=== PATIENT | male | born 1950 | race Caucasian/White ===

== ENCOUNTER → 2016-11-09 | Outpatient (CLI) | payer BC ==
[~2016-11-09] MED LIST: ASPI81TA28 PO; ATOR-26 PO; BACL10TA PO; BIOT1TAB5 PO; CHOL1CAP57 PO; COEN100C11 PO; GARL400T4 PO; LISI5TAB PO; NTRSLP4 SL; OMEG10002 PO; PLV75 PO; THM100 PO; VITA400C15 PO
[2016-11-09 13:54] LABS: ALT/SGPT 38 U/L (12-78); AST/SGOT 23 U/L (15-37); BLOOD UREA NITROGEN 15 mg/dl (7-18); BUN/CREATININE RATIO 12.2 (10-20); CALCIUM 9.3 mg/dl (8.5-10.1); CARBON DIOXIDE 30 mmol/L (21-32); CHLORIDE 108 mmol/L (98-107); GLUCOSE 87 mg/dl (70-99); SODIUM 144 mmol/L (136-145)
[2016-11-09 13:57] LABS: ALB/GLOB RATIO 1.4 (0.9-2); ALKALINE PHOSPHATASE 62 U/L (45-117); CHOLESTEROL 123 mg/dl (0-200); CHOLESTEROL/HDL RATIO 2.7; HDL CHOLESTEROL 45 mg/dl; LDL CHOLESTEROL CALCULATED 56 mg/dl; TRIGLYCERIDES 112 mg/dl (0-150); VERY LOW DENSITY LIPOPROT CALC 22 mg/dl
== END | disposition home or self-care (01) ==
LOC: C.LAB1850 11:41
PROVIDERS: ATTEND Internal Medicine Cardiovascular Disease
DX: E78.5 Hyperlipidemia, unspecified (principal); I25.10 Atherosclerotic heart disease of native coronary artery without angina pectoris

== ENCOUNTER 2017-04-05 12:11 | Inpatient (IN) | payer BC, OTHER ==
[2017-04-05] VITALS (30 sets, daily range): BP systolic 115–139; BP diastolic 74–91; PULSE 69–91; TEMP 36.6–36.8; O2SAT 93–98; Ht 170.2 cm; Wt 98.7 kg
[~2017-04-05] VITALS: Ht 170.2 cm; Wt 98.7 kg
[2017-04-05] MEDS ORDERED: SODIUM CHLORIDE 0.9% 1000ML 1,000 ML IV STA (12:18)
[2017-04-05] MEDS ORDERED: ASPIRIN 81 MG CHEW PO STA (12:18)
[2017-04-05] MEDS ORDERED: MIDAZOLAM HCL 1 MG/ML 2ML VIAL ONE ×2 (12:20→14:02)
[2017-04-05] MEDS ORDERED: ONDANSETRON INJ 2 MG/ML 2 ML VIAL IV STA (12:20)
[2017-04-05] MEDS ORDERED: FENTANYL CITRATE INJ 50 MCG/1 ML 2 ML VIAL ONE (12:21)
[2017-04-05] MEDS ORDERED: NiCARDipine HCL INJ 2.5 MG/ML 10 ML AMP ONE (12:21)
[2017-04-05] MEDS ORDERED: HEPARIN SOD (PORCINE) 1000 UNIT/ML 10 ML VIAL ONE (12:21)
[2017-04-05] MEDS ORDERED: NITROGLYCERIN/D5W 100MCG/ML 20ML SYR ONE (12:23)
[2017-04-05] MEDS: NITROGLYCERIN 0.4 MG SL PER TAB CHARGE SL PRN ×2 (12:24→12:29)
[2017-04-05] MEDS ORDERED: METOCLOPRAMIDE HCL INJ 5 MG/ML 2 ML VIAL ONE (12:30)
[2017-04-05] MEDS ORDERED: METOCLOPRAMIDE HCL INJ 5 MG/ML 2 ML VIAL IV STA (12:30)
[2017-04-05 12:36] LABS: HEMATOCRIT 47.2 % (42-52); MEAN CELL VOLUME 96.1 fL (80-100); RED BLOOD COUNT 4.91 M/uL (4.7-6.1); WHITE BLOOD COUNT 10.27 K/uL (4.8-10.8)
[2017-04-05 12:37] LABS: BASO % 0.6 %; BASO ABS # 0.06 K/uL (0-0.2); COMPLETE YES; EOS % 4.3 %; IG% 0.2 %; LYMPH % 34.6 %; LYMPH ABS # 3.55 K/uL (1.2-3.4); MEAN CORPUSCULAR HGB CONC 35.4 g/dl (32-36); MEAN PLATELET VOLUME 11.3 fL (7.4-10.4); MONO % 9.4 %; NEUT % 50.9 %; PLATELET COUNT 275 K/uL (130-400)
[2017-04-05 12:46] LABS: PARTIAL THROMBOPLASTIN RATIO 0.8; PROTHROMBIN TIME (PATIENT) 10.8 SECONDS (9.0-12.0)
[2017-04-05 12:55] LABS: BUN/CREATININE RATIO 8.2 (10-20); CREATININE 1.52 mg/dl (0.60-1.40); MAGNESIUM 2.1 mg/dl (1.8-2.4); POTASSIUM 3.8 mmol/L (3.5-5.1)
[2017-04-05] MEDS ORDERED: EPTIFIBATIDE 0.75 MG/ML 75MG VIAL IV ONE (12:57)
[2017-04-05] MEDS ORDERED: EPTIFIBATIDE 2 MG/ML 10 ML VIAL IV ONE (12:57)
[2017-04-05 12:58] LABS: CKMB/CK RATIO 1.3 (0-3.0)
[2017-04-05] MEDS ORDERED: AMIODARONE / D5W 200 ML IV SCH (13:00)
[2017-04-05] MEDS ORDERED: AMIODARONE 360MG / 200ML D5W ONE (13:00)
[2017-04-05] MEDS ORDERED: AMIODARONE HCL INJ 50 MG/ML 3 ML VIAL ONE (13:01)
[2017-04-05] MEDS ORDERED: AMIODARONE 150MG / 100ML D5W ONE (13:03)
--- NOTE | 2017-04-05 13:05 | EMERGENCY ROOM VISIT NOTE ---
History Report prepared by Cuco: Tanya Apodaca Under the Supervision of: Dr. Rodney Espinoza M.D. First contact with patient: 12:17 Chief Complaint: CHEST PAIN Stated Complaint: CHEST PAIN History of Present Illness The patient is a 66 year old male who presents to the Emergency Room with complaints of an episode of chest pain beginning about 20 minutes ago. The patient was in the shower when his chest pain began. He rates his pain as a 10/ 10. The patient has a history of a heart attack and a stroke. He also had 4 stents put in last year. He reports feeling "fine" since having his stents put in last year. The patient is on Plavix and states he has "probably missed some doses". The patient did not take his morning medications. He denies taking any nitroglycerin or Aspirin prior to arrival. Source of History: patient Onset: 20 minutes ago Position: chest Symptom Intensity: 10/10 Timing: other (episode) Associated Symptoms: + chest pain Review of Systems See HPI for pertinent positives & negatives. A total of 10 systems reviewed and were otherwise negative. Past Medical & Surgical Medical Problems: (1) Hyperlipidemia (2) Hypertension (3) Memory loss (4) Nasal septal deviation (5) Obstructive sleep apnea (6) STEMI (ST elevation myocardial infarction) (7) STEMI (ST elevation myocardial infarction) (8) Transient ischemic attack (TIA) Surgical Problems: (1) H/O hernia repair Family History Patient reports no known family medical history. Social History Smoking Status: Former Smoker Alcohol Use: occasionally Drug Use: none Marital Status: Housing Status: lives with significant other Occupation Status: retired Current/Historical Medications Scheduled Aspirin (Aspirin Ec), 81 MG PO DAILY Atorvastatin (Lipitor), 80 MG PO DAILY Baclofen (Lioresal), 10 MG PO BID Biotin (Biotin), 1,000 MCG PO QAM Cholecalciferol (Vitamin D3), 1,000 INTER.UNIT PO QAM Clopidogrel Bisulfate (Clopidogrel), 75 MG PO QAM Coenzyme Q10 (Ubidecarenone) (Coq-10), 100 MG PO QAM Garlic-Calcium (Garlic), 1 TAB PO DAILY Lisinopril (Prinivil), 1 TAB PO DAILY [place]-3 Fatty Acids (Fish Oil), 1 CAP PO QAM Thiamine HCl (Vitamin B-1), 200 MG PO BID Tocopheryl Acet,Dl-Alpha (Vitamin E), 400 INTER.UNIT PO DAILY Scheduled PRN Nitroglycerin (Nitrostat), 0.4 MG SL DIRECTED PRN for Chest Pain Allergies Coded Allergies: No Known Allergies (Verified , 04/02/15) Physical Exam Vital Signs Date Time Temp Pulse Resp B/P (MAP) Pulse Ox O2 Delivery O2 Flow Rate FiO2 04/05/17 14:45 36.6 69 121/81 Nasal Cannula 2.0 04/05/17 14:45 36.6 69 20 121/81 (94) 96 Nasal Cannula 2.0 04/05/17 14:32 92 16 145/98 (114) 97 Room Air 04/05/17 14:22 90 16 135/97 (110) 97 Room Air 04/05/17 12:23 97 Room Air 04/05/17 12:23 36.8 86 26 165/125 97 Room Air 04/05/17 12:20 86 04/05/17 12:20 2 Nasal Cannula 04/05/17 12:14 97 Room Air Physical Exam GENERAL: Patient is a ill-appearing male, vomiting on examination. HEAD: Normocephalic atraumatic EYES: Ocular movements intact pupils equal and react to light OROPHARYNX mucous membranes are moist no exudates present no erythema or edema present NECK: Supple no nuchal rigidity CHEST: Good equal expansion LUNGS: Clear and equal to auscultation CARDIAC: Normal S1 and S2 ABDOMEN: Soft nontender no guarding BACK: No CVA tenderness EXTREMITIES: No pain upon palpation normal muscle strength in all groups no clubbing cyanosis or edema NEURO: Patient is following commands and answering questions appropriately. Alert and oriented x3 Cranial Nerves 2-12 grossly intact Medical Decision & Procedures Laboratory Results 04/05/17 12:20 Red Blood Count 4.91, Mean Corpuscular Volume 96.1, Mean Corpuscular Hemoglobin 34.0, Mean Corpuscular Hemoglobin Concent 35.4, Mean Platelet Volume 11.3, Neutrophils (%) (Auto) 50.9, Lymphocytes (%) (Auto) 34.6, Monocytes (%) (Auto) 9.4, Eosinophils (%) (Auto) 4.3, Basophils (%) (Auto) 0.6, Neutrophils # (Auto) 5.23, Lymphocytes # (Auto) 3.55, Monocytes # (Auto) 0.97, Eosinophils # (Auto) 0.44, Basophils # (Auto) 0.06 04/05/17 12:20 Test 04/05/17 12:20 04/05/17 12:30 04/05/17 13:02 White Blood Count 10.27 K/uL (4.8-10.8) Red Blood Count 4.91 M/uL (4.7-6.1) Hemoglobin 16.7 g/dL (14.0-18.0) Hematocrit 47.2 % (42-52) Mean Corpuscular Volume 96.1 fL (80-100) Mean Corpuscular Hemoglobin 34.0 pg (25-34) Mean Corpuscular Hemoglobin Concent 35.4 g/dl (32-36) Platelet Count 275 K/uL (130-400) Mean Platelet Volume 11.3 fL (7.4-10.4) Neutrophils (%) (Auto) 50.9 % Lymphocytes (%) (Auto) 34.6 % Monocytes (%) (Auto) 9.4 % Eosinophils (%) (Auto) 4.3 % Basophils (%) (Auto) 0.6 % Neutrophils # (Auto) 5.23 K/uL (1.4-6.5) Lymphocytes # (Auto) 3.55 K/uL (1.2-3.4) Monocytes # (Auto) 0.97 K/uL (0.11-0.59) Eosinophils # (Auto) 0.44 K/uL (0-0.5) Basophils # (Auto) 0.06 K/uL (0-0.2) RDW Standard Deviation 43.9 fL (36.4-46.3) RDW Coefficient of Variation 12.8 % (11.5-14.5) Immature Granulocyte % (Auto) 0.2 % Immature Granulocyte # (Auto) 0.02 K/uL (0.00-0.02) Prothrombin Time 10.8 SECONDS (9.0-12.0) Prothromb Time International Ratio 1.0 (0.9-1.1) Activated Partial Thromboplast Time 20.4 SECONDS (21.0-31.0) Partial Thromboplastin Ratio 0.8 Anion Gap 11.0 mmol/L (3-11) Est Creatinine Clear Calc Drug Dose 53.5 ml/min Estimated GFR () 54.2 Estimated GFR (Non- 46.7 BUN/Creatinine Ratio 8.2 (10-20) Calcium Level 9.0 mg/dl (8.5-10.1) Magnesium Level 2.1 mg/dl (1.8-2.4) Total Bilirubin 1.0 mg/dl (0.2-1) Direct Bilirubin 0.2 mg/dl (0-0.2) Aspartate Amino Transf (AST/SGOT) 29 U/L (15-37) Alanine Aminotransferase (ALT/SGPT) 41 U/L (12-78) Alkaline Phosphatase 69 U/L (45-117) Total Creatine Kinase 253 U/L (39-308) Creatine Kinase MB 3.4 ng/ml (0.5-3.6) Creatine Kinase MB Ratio 1.3 (0-3.0) Total Protein 7.9 gm/dl (6.4-8.2) Albumin 4.4 gm/dl (3.4-5.0) Lipase 134 U/L (73-393) Bedside Troponin I < 0.030 ng/ml (0-0.045) Kaolin Activated Coagulation Time 241 SECONDS (94-140) Date/Time Source Procedure Growth Status 04/05/17 14:45 Nasal MRSA DNA Surveillance Screen - Final Specimen Negative for MRSA by DNA Probe Complete Labs reviewed by ED physician. Medications Administered Medications (Trade) Dose Ordered Sig/Krystina Route Start Time Stop Time Status Last Admin Dose Admin Sodium Chloride 1,000 ml @ 999 mls/hr Q1H1M STAT IV 04/05/17 12:18 04/05/17 13:18 DC 04/05/17 12:18 999 MLS/HR Aspirin (Aspirin Chew) 324 mg NOW STAT PO 04/05/17 12:18 04/05/17 12:21 DC 04/05/17 12:18 324 MG Nitroglycerin (Nitrostat Tab) 0.4 mg Q5M PRN SL 04/05/17 12:30 04/05/17 15:26 DC 04/05/17 12:29 0.4 MG Ondansetron HCl (Zofran Inj) 4 mg NOW STAT IV 04/05/17 12:20 04/05/17 12:21 DC 04/05/17 12:20 4 MG Midazolam HCl (Versed Inj) 2 mg STK-MED ONCE .ROUTE 04/05/17 12:20 04/05/17 12:21 DC 04/05/17 12:20 2 MG Fentanyl Citrate (Fentanyl Inj) 100 mcg STK-MED ONCE .ROUTE 04/05/17 12:21 04/05/17 12:22 DC 04/05/17 12:21 100 MCG Heparin Sodium (Porcine) (Heparin Iv Bolus) 10,000 unit STK-MED ONCE .ROUTE 04/05/17 12:21 04/05/17 12:22 DC 04/05/17 12:21 10,000 UNIT Nicardipine HCl (Cardene Iv) 25 mg STK-MED ONCE .ROUTE 04/05/17 12:21 04/05/17 12:22 DC 04/05/17 12:21 25 MG Heparin Sodium/ Sodium Chloride (Heparin Sod/Ns 2 Units/Ml) 3,000 unit STK-MED ONCE .ROUTE 04/05/17 12:21 04/05/17 12:22 DC 04/05/17 12:21 3,000 UNIT Nitroglycerin/ Dextrose (Nitroglycerin/ D5w 100 Mcg/Ml 20ML SYRINGE) 2,000 mcg STK-MED ONCE .ROUTE 04/05/17 12:23 04/05/17 12:24 DC 04/05/17 12:23 2,000 MCG Metoclopramide HCl (Reglan Inj) 10 mg NOW STAT IV 04/05/17 12:30 04/05/17 12:31 DC 04/05/17 12:30 10 MG Eptifibatide (Integrilin Inj) 40 mg STK-MED ONCE IV 04/05/17 12:57 04/05/17 12:58 DC 04/05/17 12:57 40 MG Eptifibatide (Integrilin Inj) 75 mg STK-MED ONCE IV 04/05/17 12:57 04/05/17 12:58 DC 04/05/17 12:57 75 MG Amiodarone HCL/ Dextrose (Nexterone / D5w) 360 mg STK-MED ONCE .ROUTE 04/05/17 13:00 04/05/17 13:02 DC 04/05/17 13:00 360 MG Amiodarone HCL/ Dextrose (Nexterone / D5w) 150 mg STK-MED ONCE .ROUTE 04/05/17 13:03 04/05/17 13:04 DC 04/05/17 13:03 150 MG Midazolam HCl (Versed Inj) 2 mg STK-MED ONCE .ROUTE 04/05/17 14:02 04/05/17 14:03 DC 04/05/17 14:02 1 MG Ticagrelor (Brilinta Tab) 180 mg STK-MED ONCE PO 04/05/17 14:21 04/05/17 14:22 DC 04/05/17 14:21 180 MG Nitroglycerin (Nitrostat Tab) 0.4 mg UD PRN SL 04/05/17 14:45 05/05/17 14:44 04/05/17 18:57 0.4 MG Amiodarone HCL/ Dextrose 200 ml @ 33.3 mls/hr Q6H1M IV 04/05/17 13:00 04/05/17 19:00 DC 04/05/17 13:00 33.3 MLS/HR ECG Indication: chest pain Rate (beats per minute): 83 Rhythm: normal sinus Findings: PVC, ST elevation (Anterior and lateral), other (reciprocal depression in inferior leads) ED Course 1219: Past medical records reviewed. The patient was evaluated in room C12B. A complete history and physical examination was performed. 1218: Ordered Aspirin 324 mg PO, Sodium Chloride 1000 ml @ 999 mls/hr. 1220: Ordered Midazolam HCl 2 mg .ROUTE, Zofran Inj 4 mg IV. 1230: I discussed the patient's case with Dr. Maxwell-Photographic Process Screen Maker, he came and evaluated the patient. 1236: The patient was taken to laboratory apparatus glass blower. Medical Decision Differential diagnosis: Etiologies such as cardiac ischemia, aortic dissection, pulmonary embolism, pneumonia, pneumothorax, musculoskeletal, infections, pericarditis, myocarditis , esophageal rupture, gastrointestinal, as well as others were entertained. This is a 66-year-old male who presents emergency department complaining of chest pain. The patient has a STEMI on his EKG. For this reason the patient was given aspirin as well as nitroglycerin and a heart alert was immediately initiated. As the patient continued to vomit in the emergency department he was given Zofran and Reglan and taken to the Hvac Specialist. Medication Reconcilliation Current Medication List: was personally reviewed by me Blood Pressure Screening Patient's blood pressure: Elevated blood pressure Blood pressure disposition: Referred to PCP (evaluated further by laboratory apparatus glass blower) Consults Time Called: 1230 Consulting Physician: Dr. Maxwell-Photographic Process Screen Maker Returned Call: 1230 I discussed the patient's case with. Dr. Maxwell-Photographic Process Screen Maker, he came and evaluated the patient Impression Primary Impression: STEMI (ST elevation myocardial infarction) Critical Care I have personally spent greater than 30 minutes of critical care time in the direct management of this patient. This includes bedside care, interpretation of diagnostic studies, and testing, discussion with consultants, patient, and family members, and other required patient management activities. This 30 minutes is in excess of all separately billable procedures. Scribe Attestation The scribe's documentation has been prepared under my direction and personally reviewed by me in its entirety. I confirm that the note above accurately reflects all work, treatment, procedures, and medical decision making performed by me. Departure Information Dispostion Other (taken to minilab operator) Referrals Mukul Dacosta M.D. (PCP) Patient Instructions My [facility] Problem Qualifiers Primary Impression: STEMI (ST elevation myocardial infarction) Involved coronary artery: unspecified coronary artery Qualified Codes: I21.3 - ST elevation (STEMI) myocardial infarction of unspecified site
[2017-04-05] MEDS ORDERED: TICAGRELOR 90 MG TAB PO ONE (14:21)
[2017-04-05] MEDS ORDERED: NITROGLYCERIN 0.4 MG SL PER TAB CHARGE SL PRN (14:45)
[2017-04-05] MEDS ORDERED: ACETAMINOPHEN 325 MG TAB PO PRN (14:45)
[2017-04-05] MEDS ORDERED: BACLOFEN 10 MG TAB PO PRN (14:45)
[2017-04-05] MEDS ORDERED: EPTIFIBATIDE BOLUS / DRIP IV ONE (14:45)
--- NOTE | 2017-04-05 14:47 | Procedure Note ---
Pre-Mod Sedation Assessment General Date of Moderate Sedation: Apr 05, 2017. Vital Signs: Vital Signs Past 12 Hours Date Time Temp Pulse Resp B/P (MAP) Pulse Ox O2 Delivery O2 Flow Rate FiO2 04/05/17 14:32 92 16 145/98 (114) 97 Room Air 04/05/17 14:22 90 16 135/97 (110) 97 Room Air 04/05/17 12:23 97 Room Air 04/05/17 12:23 36.8 86 26 165/125 97 Room Air 04/05/17 12:20 86 04/05/17 12:20 2 Nasal Cannula 04/05/17 12:14 97 Room Air Review Cardiovascular: regular rate, rhythm, no edema Abdomen: normal bowel sounds, non tender Lungs: chest non-tender, lungs clear Pre-Sedation Airway Assessment Oral Cavity: WNL Able to Visualize Vocal Cords: No Short Thick Neck: No Hx of Sleep Apnea: No Smoking Status: Former Smoker Mallampati Classification: Class III ASA Classification: Class IV Procedure Planning Contraindications-for Mod Sed: None Yes Notes The planned sedation has been discussed with the patient and consent obtained. I have identified the patient, determined the appropriateness of sedation and have assessed the patient immediately prior to the procedure. All medicine(s) and interventions are by my order.
--- NOTE | 2017-04-05 14:48 | Procedure Note ---
Post-Mod Sedation Assessment General Date of Moderate Sedation Apr 05, 2017. Vital Signs: Vital Signs Past 12 Hours Date Time Temp Pulse Resp B/P (MAP) Pulse Ox O2 Delivery O2 Flow Rate FiO2 04/05/17 14:32 92 16 145/98 (114) 97 Room Air 04/05/17 14:22 90 16 135/97 (110) 97 Room Air 04/05/17 12:23 97 Room Air 04/05/17 12:23 36.8 86 26 165/125 97 Room Air 04/05/17 12:20 86 04/05/17 12:20 2 Nasal Cannula 04/05/17 12:14 97 Room Air Review - Discharge Criteria Vital Signs Stable: Yes Alert/Oriented/Conversant: Yes Returned to Baseline Mental St: Yes Nausea Absent/Minimal: Yes Pain/Discomfort/Absent/Minimal: Yes Normal/Baseline Respirations: Yes Active Bleeding?: Yes Pt Received D/C Instructions: No Prescriptions Given: None Specific Proced. D/C Criteria Distal Pulses Present (Cardiac: Yes Groin site assessed-Card Cath: N/A Voided Prior To Discharge: N/A Discharged Patients Adult Escort/Transportation: Yes
--- NOTE | 2017-04-05 15:04 | Cardiac Catheterization ---
Procedure Note Procedure Date Apr 05, 2017. Pre-Procedure Diagnosis STEMI AUC Score 9 Post-Procedure Diagnosis Severe CAD Procedure(s) Performed Coronary Angiography, Left Heart Cath, Drug Eluting Stent Adhesive Bonding Machine Operator ash Material Control Analyst(s) Glunt Estimated Blood Loss 20 Medication(s) Fentanyl, Heparin, Integrilin, Nicardipine, Nitroglycerin, Versed, Lidocaine 1% ticagrelor Summary of Findings Indication: STEMI/Heart Alert Access: 6Fr right Catheters: EBU 3.75; JR 4 diagnostic catheter Findings: Acutely occluded LAD - very late stent thrombosis -- PCI -- Antithrombotic therapy: Heparin, integrilin, ticagrelor Procedure: LM cannulated with EBU 3.75 guide BMW wire passed across lesion into distal vessel Intrastent/post stent lesions predilated with 2.5 compliant balloon Prior stents post-dilated with 3.0 balloon IVUS confirmed well-apposed stents. No proximal disease. Mid segment plaque and thrombus. Dilated lesion distal to prior stents - stented with 2.5 x 30 Pedro CHULA Stent post-dilated with 3.0 noncompliant balloon IC vasodilators administered for spasm Noted to have distal/apical LAD occlusion with apparent thrombus. Apical LAD ballooned gently with 1.5 and 2.0 balloon with re-established flow Post procedure MARIO 3 flow, stent well expanded with minimal residual stenosis and no apparent cardiac complications. Arterial Closure: TR Band Summary: 1. Anterior STEMI/Occluded proximal LAD/Very late stent thrombosis 2. Successful PCI of LAD stent thrombosis with 2.5 x 30 Pedro CHULA placed to mid LAD overlapping distal aspect of prior stents. (All stents post-dilated with 3.0 NC balloon) - POBA of distal/apical LAD with 2.0 balloon. Recommendations: Admit to ICU for continued monitoring Loaded with Ticagrelor 180mg in supervisor cytogenetic laboratory Continue integrilin for 8 hrs Continue dual-antiplatelet therapy indefinitely Trend troponins until peak, Check Echo Uptitrate beta-leisa/DONYA as BP allows High-dose statin Consult cardiac Rehab Hemodynamics Rest Ao: 118/76/98 Final Ao: 114/74/93 LV: 120/35 Recommendations PCI without planned CABG Specimens None Radiation Exposure (mGy) 6279 Contrast (mls) 215 Visi Fluids (cc crystalloids) 330 ml Drains none Anesthesia moderate Procedural Complication(s) None Disposition ICU ACC Data Cardiac Status Clinical evaluation leading to the procedure CAD Presntation: STEMI Anginal Classification: CCS III Heart Failure: No, NYHA Class: CCS I Cardiogenic Shock w/in 24Hrs: No Cardiac Arrest w/in 24Hrs: No Imaging studies past 6 months: No Closure Device Percutaneous Entry Location: Radial Closure Device: Radial Band Recommendations: PCI without planned CABG PCI Indication: Immediate PCI for STEMI Lesion Segment Name: proximal LAD Culprit Artery: Yes Stenosis Prior to Rx (%): 100 Chronic Total Occlusion: No IVUS: Yes FFR: No Pre-Procedure MARIO Flow: 0 Previously Treated Lesion: Yes Treated Lesion: Timeframe: 1-2 years Treated with Stent: Yes In-Stent Thrombosis: Yes Stent Type: CHULA Lesion Complexity: High/C Lesion Length (mm): 30 Thrombus Present: Yes Bifurcation Lesion: No Guidewire Across Lesion: Yes Guidewire: Stenosis Post-Procedure (%): 0 Post-Procedure MARIO Flow: 3 Device(s) Deployed: Yes Intraprocedure Events Significant Dissection: No Perforation: No
[2017-04-05] MEDS: EPTIFIBATIDE INJ 75 MG PREMIXED IV SCH ×2 (15:33→18:02)
[2017-04-05] MEDS ORDERED: AMIODARONE IV BOLUS / DRIP IV STA (16:52)
[2017-04-05] MEDS: AMIODARONE / D5W 200 ML IV SCH ×2 (18:56→22:59)
--- NOTE | 2017-04-05 19:09 | Critical Care Consultation ---
Critical Care Consultation Date of Consultation: Apr 05, 2017. Attending Physician: Omari Young D.O. Reason for Consultation: post PCI. History of Present Illness 66 yo male with a hx of CVA with minimal deficit in the past, CLARENCE, CAD s/p stenting to the LAD, HTN, mild dementia and HLP. presented to the hospital with severe 10/10 chest pain, not responding to the NTG. the pt had St elevation on the EKG, went to the oil field laborer and underwent CHULA placement in the LAD with balloon dilation , improved chest pain, V tach was reported and started on Amiodarone drip. brought to the ICU on Integrilin and Amiodarone drip. one episode of chest pain , feels like bronchitis according to the pt. 2, no EKG changes and no ST elevation. recent trop was normal. responded to NTG SL. Family History Patient reports no known family medical history. Social History Smoking Status: Former Smoker Smokeless Tobacco Use: No Alcohol Use: none Drug Use: none Marital Status: Housing Status: lives with significant other Occupation Status: retired Allergies Coded Allergies: No Known Allergies (Verified , 04/02/15) Home Medications Scheduled Aspirin (Aspirin Ec), 81 MG PO DAILY Atorvastatin (Lipitor), 80 MG PO DAILY Baclofen (Lioresal), 10 MG PO BID Biotin (Biotin), 1,000 MCG PO QAM Cholecalciferol (Vitamin D3), 1,000 INTER.UNIT PO QAM Clopidogrel Bisulfate (Clopidogrel), 75 MG PO QAM Coenzyme Q10 (Ubidecarenone) (Coq-10), 100 MG PO QAM Garlic-Calcium (Garlic), 1 TAB PO DAILY Lisinopril (Prinivil), 1 TAB PO DAILY [place]-3 Fatty Acids (Fish Oil), 1 CAP PO QAM Thiamine HCl (Vitamin B-1), 200 MG PO BID Tocopheryl Acet,Dl-Alpha (Vitamin E), 400 INTER.UNIT PO DAILY Scheduled PRN Nitroglycerin (Nitrostat), 0.4 MG SL DIRECTED PRN for Chest Pain Current Inpatient Medications Current Inpatient Medications Medications (Trade) Dose Ordered Sig/Krystina Route Start Time Stop Time Status Last Admin Dose Admin Nitroglycerin (Nitrostat Tab) 0.4 mg UD PRN SL 04/05/17 14:45 05/05/17 14:44 04/05/17 18:57 0.4 MG Aspirin (Ecotrin Tab) 81 mg QAM PO 04/06/17 09:00 05/06/17 08:59 Atorvastatin Calcium (Lipitor Tab) 80 mg QAM PO 04/06/17 09:00 05/06/17 08:59 Metoprolol Tartrate (Lopressor Tab) 25 mg Q12 PO 04/05/17 21:00 05/05/17 20:59 Acetaminophen (Tylenol Tab) 650 mg Q4H PRN PO 04/05/17 14:45 05/05/17 14:44 Baclofen (Lioresal Tab) 10 mg BID PRN PO 04/05/17 14:45 05/05/17 14:44 Lisinopril (Zestril Tab) 5 mg DAILY PO 04/06/17 09:00 05/06/17 08:59 Thiamine HCl (Vitamin B-1 Tab) 200 mg BID PO 04/05/17 21:00 05/05/17 20:59 Ticagrelor (Brilinta Tab) 90 mg BID PO 04/05/17 21:00 05/05/17 20:59 Eptifibatide 100 ml @ 16 mls/hr Q6H15M IV 04/05/17 15:30 04/05/17 23:00 04/05/17 18:02 16 MLS/HR Miscellaneous (Stop Order) 1 ea TODAY@2300 ONCE N/A 04/05/17 23:00 04/05/17 23:01 Amiodarone HCL/ Dextrose 200 ml @ 16.7 mls/hr [id number] IV 04/05/17 19:00 05/05/17 18:59 04/05/17 18:56 16.7 MLS/HR Review of Systems Constitutional: No fever, No chills, No sweats, No weight loss, No weakness, No fatigue, No problem reported ENT: No hearing loss, No unusual epistaxis, No nasal symptoms, No sore throat, No tinnitus, No dental problems, No trouble swallowing, No problem reported Respiratory: + shortness of breath Cardiovascular: + chest pain Abdomen: No pain, No nausea, No vomiting, No diarrhea, No constipation, No GI bleeding, No problem reported Neurologic: No memory loss, No paralysis, No weakness, No numbness/tingling, No vertigo, No balance problems, No problem reported Integumentary: No rash, No itch, No new/changing skin lesions, No color change , No bleeding, No problem reported Allergic / Immunologic: No environmental allergies, No seasonal allergies, No pet sensitivities, No food allergies, No hives, No frequent infections, No poor healing, No prolonged convalescence, No problem reported Physical Exam Date Time Temp Pulse Resp B/P (MAP) Pulse Ox O2 Delivery O2 Flow Rate FiO2 04/05/17 17:45 74 14 133/79 (97) 97 Nasal Cannula 2.0 04/05/17 16:45 36.8 78 20 128/87 (101) 97 Nasal Cannula 2.0 04/05/17 16:15 36.6 76 20 134/85 (101) 98 Nasal Cannula 2.0 04/05/17 15:45 36.8 71 18 125/77 (93) 98 Nasal Cannula 2.0 04/05/17 15:30 36.7 74 18 134/81 (98) 96 Nasal Cannula 2.0 04/05/17 15:15 73 18 122/86 (98) 96 Nasal Cannula 2.0 04/05/17 15:00 36.6 70 18 126/81 (96) 96 Nasal Cannula 2.0 04/05/17 14:45 36.6 69 121/81 Nasal Cannula 2.0 04/05/17 14:45 36.6 69 20 121/81 (94) 96 Nasal Cannula 2.0 04/05/17 14:32 92 16 145/98 (114) 97 Room Air 04/05/17 14:22 90 16 135/97 (110) 97 Room Air 04/05/17 12:23 97 Room Air 04/05/17 12:23 36.8 86 26 165/125 97 Room Air 04/05/17 12:20 86 04/05/17 12:20 2 Nasal Cannula 04/05/17 12:14 97 Room Air General Appearance: well-appearing Eyes: PERRLA, no discharge ENT: normal mouth exam Neck: trachea midline, no stridor Respiratory: breath sounds normal, clear to auscultation Cardiovasular: regular rate/rhythm, normal S1S2, no M/G/R Abdomen: non tender, no masses Lower Extremities: no edema Neuro: alert, oriented x 3, normal motor exam, normal sensation Psychiatric: normal affect Laboratory Results Last 24 Hours Test 04/05/17 12:20 04/05/17 12:30 04/05/17 13:02 White Blood Count 10.27 K/uL Red Blood Count 4.91 M/uL Hemoglobin 16.7 g/dL Hematocrit 47.2 % Mean Corpuscular Volume 96.1 fL Mean Corpuscular Hemoglobin 34.0 pg Mean Corpuscular Hemoglobin Concent 35.4 g/dl Platelet Count 275 K/uL Mean Platelet Volume 11.3 fL Neutrophils (%) (Auto) 50.9 % Lymphocytes (%) (Auto) 34.6 % Monocytes (%) (Auto) 9.4 % Eosinophils (%) (Auto) 4.3 % Basophils (%) (Auto) 0.6 % Neutrophils # (Auto) 5.23 K/uL Lymphocytes # (Auto) 3.55 K/uL Monocytes # (Auto) 0.97 K/uL Eosinophils # (Auto) 0.44 K/uL Basophils # (Auto) 0.06 K/uL RDW Standard Deviation 43.9 fL RDW Coefficient of Variation 12.8 % Immature Granulocyte % (Auto) 0.2 % Immature Granulocyte # (Auto) 0.02 K/uL Prothrombin Time 10.8 SECONDS Prothromb Time International Ratio 1.0 Activated Partial Thromboplast Time 20.4 SECONDS Partial Thromboplastin Ratio 0.8 Sodium Level 141 mmol/L Potassium Level 3.8 mmol/L Chloride Level 105 mmol/L Carbon Dioxide Level 25 mmol/L Anion Gap 11.0 mmol/L Blood Urea Nitrogen 13 mg/dl Creatinine 1.52 mg/dl Est Creatinine Clear Calc Drug Dose 53.5 ml/min Estimated GFR () 54.2 Estimated GFR (Non- 46.7 BUN/Creatinine Ratio 8.2 Random Glucose 152 mg/dl Calcium Level 9.0 mg/dl Magnesium Level 2.1 mg/dl Total Bilirubin 1.0 mg/dl Direct Bilirubin 0.2 mg/dl Aspartate Amino Transf (AST/SGOT) 29 U/L Alanine Aminotransferase (ALT/SGPT) 41 U/L Alkaline Phosphatase 69 U/L Total Creatine Kinase 253 U/L Creatine Kinase MB 3.4 ng/ml Creatine Kinase MB Ratio 1.3 Total Protein 7.9 gm/dl Albumin 4.4 gm/dl Lipase 134 U/L Bedside Troponin I < 0.030 ng/ml Jeremie Activated Coagulation Time 241 SECONDS Diagnostic Results labs and imaging reviewed personally. cath report reviewed as well. Assessment & Plan 1- CAD, Cath today with CHULA to the LAD. 2- CLARENCE. 3- HTN and HLP. Plan: 1- appreciate Dr. Maxwell input. 2- ICU monitoring, 3- continue Integrilin, Amiodarone. 4- NTG SL given, pain 2/10. 5- MS if needed for pain, no EKG changes to suggest on going ischemia. 6- GI prophylaxis. discussed with the staff . CCT 35 min.
[2017-04-05] MEDS ORDERED: NURSING VERBAL MED ORDER STA (19:15)
[2017-04-05] MEDS ORDERED: MoRPHine SULFATE 2 MG/ML CARP ONE (19:19)
[2017-04-05] MEDS ORDERED: MoRPHine SULFATE 2 MG/ML CARP IV PRN (19:45)
[2017-04-05] MEDS: TICAGRELOR 90 MG TAB PO SCH (21:42)
[2017-04-05] MEDS: THIAMINE HCL 100 MG TAB PO SCH (21:43)
[2017-04-05] MEDS: METOPROLOL TARTRATE 25 MG TAB PO SCH (21:43)
--- NOTE | 2017-04-05 21:48 | History and Physical ---
History & Physical Date & Time of Service: Apr 05, 2017 at 21:35 Chief Complaint: STEMI Primary Care Physician: Mukul Dacosta M.D. History of Present Illness Source: patient, hospital records 66 yo male with a history of STEMI with CHULA to the circumflex as well as stenting to the LAD in 2016, presented with chest pain and ST elevations. Taken immediately to the petroleum refinery laborer by Dr. Maxwell and the LAD stents found to be completely occluded. Thrombectomy and one new CHULA placed in the LAD and more distally in the LAD the patient had further blockage that was treated with balloon angioplasty. Good blood flow after the procedure. Patient did have some runs of ventricular tachycardia, but otherwise he tolerated the procedure well. He was recovering in the ICU at the time we were called and he had no further chest pain, vitals stable. Discussed the case with Dr. Maxwell, plans to use Integrilin for 8 hours after procedure, then Brilinta while in the hospital. Some issues with patient being compliant with Plavix, possibly due to some memory issues related to a prior stroke. Past Medical/Surgical History Medical Problems: (1) Hyperlipidemia Status: Chronic (2) Hypertension Status: Chronic (3) Memory loss Status: Chronic (4) Nasal septal deviation Status: Chronic (5) Obstructive sleep apnea Status: Chronic (6) Transient ischemic attack (TIA) Status: Chronic Surgical Problems: (1) H/O hernia repair Status: Resolved Family History Patient reports no known family medical history. Diabetes Social History Smoking Status: Former Smoker Smokeless Tobacco Use: No Alcohol Use: none Drug Use: none Marital Status: Occupational Status: retired Immunizations History of Influenza Vaccine: No History of Tetanus Vaccine?: Unknown History of Pneumococcal: No History of Hepatitis B Vaccine: Unknown Multi-Drug Resistant Organisms History of MDRO: No Allergies Coded Allergies: No Known Allergies (Verified , 04/02/15) Home Medications Scheduled Aspirin (Aspirin Ec), 81 MG PO DAILY Atorvastatin (Lipitor), 80 MG PO DAILY Baclofen (Lioresal), 10 MG PO BID Biotin (Biotin), 1,000 MCG PO QAM Cholecalciferol (Vitamin D3), 1,000 INTER.UNIT PO QAM Clopidogrel Bisulfate (Clopidogrel), 75 MG PO QAM Coenzyme Q10 (Ubidecarenone) (Coq-10), 100 MG PO QAM Garlic-Calcium (Garlic), 1 TAB PO DAILY Lisinopril (Prinivil), 1 TAB PO DAILY Helen-3 Fatty Acids (Fish Oil), 1 CAP PO QAM Thiamine HCl (Vitamin B-1), 200 MG PO BID Tocopheryl Acet,Dl-Alpha (Vitamin E), 400 INTER.UNIT PO DAILY Scheduled PRN Nitroglycerin (Nitrostat), 0.4 MG SL DIRECTED PRN for Chest Pain Review of Systems Constitutional: No fever, No chills, No sweats, No weight loss, No weakness, No fatigue, No problem reported Eyes: No worsening of vision, No eye pain, No redness, No discharge, No diplopia, No problem reported ENT: No hearing loss, No unusual epistaxis, No nasal symptoms, No sore throat, No tinnitus, No dental problems, No trouble swallowing, No problem reported Respiratory: No cough, No sputum, No wheezing, No shortness of breath, No dyspnea on exertion, No dyspnea at rest, No hemoptysis, No problem reported Cardiovascular: + chest pain (on admission, none now), No orthopnea, No PND, No edema, No claudication, No palpitations, No problem reported Abdomen: No pain, No nausea, No vomiting, No diarrhea, No constipation, No GI bleeding, No problem reported Musculoskeletal: No joint pain, No muscle pain, No swelling, No calf pain, No problem reported Genitourinary - Male: No hematuria, No dysuria, No urinary frequency, No urinary urgency Neurologic: + memory loss, No paralysis, No weakness, No numbness/tingling, No vertigo, No balance problems, No problem reported Psychiatric: No depression symptoms, No anhedonism, No anxiety, No insomnia, No substance abuse, No problem reported Endocrine: No fatigue, No excessive thirst, No excessive urination, No problem reported Hematologic / Lymphatic: No abnormal bleeding/bruising, No clotting problems, No swollen lymph nodes, No night sweats, No problem reported Integumentary: No rash, No itch, No new/changing skin lesions, No color change , No bleeding, No problem reported Allergic / Immunologic: No environmental allergies, No seasonal allergies, No pet sensitivities, No food allergies, No hives, No frequent infections, No poor healing, No prolonged convalescence, No problem reported Physical Exam Vital Signs Date Time Temp Pulse Resp B/P (MAP) Pulse Ox O2 Delivery O2 Flow Rate FiO2 04/05/17 18:45 78 18 120/74 (89) 93 Nasal Cannula 2.0 04/05/17 17:45 74 14 133/79 (97) 97 Nasal Cannula 2.0 04/05/17 16:45 36.8 78 20 128/87 (101) 97 Nasal Cannula 2.0 04/05/17 16:15 36.6 76 20 134/85 (101) 98 Nasal Cannula 2.0 04/05/17 15:45 36.8 71 18 125/77 (93) 98 Nasal Cannula 2.0 04/05/17 15:30 36.7 74 18 134/81 (98) 96 Nasal Cannula 2.0 04/05/17 15:15 73 18 122/86 (98) 96 Nasal Cannula 2.0 04/05/17 15:00 36.6 70 18 126/81 (96) 96 Nasal Cannula 2.0 04/05/17 14:45 36.6 69 121/81 Nasal Cannula 2.0 04/05/17 14:45 36.6 69 20 121/81 (94) 96 Nasal Cannula 2.0 04/05/17 14:32 92 16 145/98 (114) 97 Room Air 04/05/17 14:22 90 16 135/97 (110) 97 Room Air 04/05/17 12:23 97 Room Air 04/05/17 12:23 36.8 86 26 165/125 97 Room Air 04/05/17 12:20 86 04/05/17 12:20 2 Nasal Cannula 04/05/17 12:14 97 Room Air General Appearance: WD/WN, no apparent distress Head: normocephalic, atraumatic Eyes: normal inspection, EOMI, sclerae normal ENT: normal ENT inspection, hearing grossly normal, pharynx normal Neck: supple, no adenopathy, no JVD, trachea midline Respiratory/Chest: chest non-tender, lungs clear, normal breath sounds, no respiratory distress, no accessory muscle use Cardiovascular: regular rate, rhythm, no edema, no gallop, no JVD, no murmur, normal peripheral pulses Abdomen/GI: normal bowel sounds, non tender, soft, no organomegaly Back: normal inspection, no CVA tenderness, no muscle spasm, normal range of motion Extremities/Musculoskelatal: normal inspection, no calf tenderness, normal capillary refill, no pedal edema, normal range of motion Neurologic/Psych: customer strategy manager II-XII nml as tested, no motor/sensory deficits, alert, normal mood/affect, normal reflexes, oriented x 3 Skin: normal color, warm/dry, no rash Lymphatic: no adenopathy Diagnostics Laboratory Results Results Past 24 Hours Test 04/05/17 12:20 04/05/17 12:30 04/05/17 13:02 04/05/17 16:27 Range/Units White Blood Count 10.27 4.8-10.8 K/uL Red Blood Count 4.91 4.7-6.1 M/uL Hemoglobin 16.7 14.0-18.0 g/dL Hematocrit 47.2 42-52 % Mean Corpuscular Volume 96.1 80-100 fL Mean Corpuscular Hemoglobin 34.0 25-34 pg Mean Corpuscular Hemoglobin Concent 35.4 32-36 g/dl Platelet Count 275 130-400 K/uL Mean Platelet Volume 11.3 7.4-10.4 fL Neutrophils (%) (Auto) 50.9 % Lymphocytes (%) (Auto) 34.6 % Monocytes (%) (Auto) 9.4 % Eosinophils (%) (Auto) 4.3 % Basophils (%) (Auto) 0.6 % Neutrophils # (Auto) 5.23 1.4-6.5 K/uL Lymphocytes # (Auto) 3.55 1.2-3.4 K/uL Monocytes # (Auto) 0.97 0.11-0.59 K/uL Eosinophils # (Auto) 0.44 0-0.5 K/uL Basophils # (Auto) 0.06 0-0.2 K/uL RDW Standard Deviation 43.9 36.4-46.3 fL RDW Coefficient of Variation 12.8 11.5-14.5 % Immature Granulocyte % (Auto) 0.2 % Immature Granulocyte # (Auto) 0.02 0.00-0.02 K/uL Prothrombin Time 10.8 9.0-12.0 SECONDS Prothromb Time International Ratio 1.0 0.9-1.1 Activated Partial Thromboplast Time 20.4 21.0-31.0 SECONDS Partial Thromboplastin Ratio 0.8 Sodium Level 141 136-145 mmol/L Potassium Level 3.8 3.5-5.1 mmol/L Chloride Level 105 98-107 mmol/L Carbon Dioxide Level 25 21-32 mmol/L Anion Gap 11.0 3-11 mmol/L Blood Urea Nitrogen 13 7-18 mg/dl Creatinine 1.52 0.60-1.40 mg/dl Est Creatinine Clear Calc Drug Dose 53.5 ml/min Estimated GFR () 54.2 Estimated GFR (Non- 46.7 BUN/Creatinine Ratio 8.2 10-20 Random Glucose 152 70-99 mg/dl Calcium Level 9.0 8.5-10.1 mg/dl Magnesium Level 2.1 1.8-2.4 mg/dl Total Bilirubin 1.0 0.2-1 mg/dl Direct Bilirubin 0.2 0-0.2 mg/dl Aspartate Amino Transf (AST/SGOT) 29 15-37 U/L Alanine Aminotransferase (ALT/SGPT) 41 12-78 U/L Alkaline Phosphatase 69 45-117 U/L Total Creatine Kinase 253 39-308 U/L Creatine Kinase MB 3.4 0.5-3.6 ng/ml Creatine Kinase MB Ratio 1.3 0-3.0 Total Protein 7.9 6.4-8.2 gm/dl Albumin 4.4 3.4-5.0 gm/dl Lipase 134 73-393 U/L Bedside Troponin I < 0.030 0-0.045 ng/ml Kaolin Activated Coagulation Time 241 94-140 SECONDS Bedside Glucose 109 70-99 mg/dl Microbiology Results 04/05/17 MRSA DNA Surveillance Screen - Final, Complete Specimen Negative for MRSA by DNA Probe EKG anterior and lateral ST elevation with reciprocal depressions in inferior leads Impression Assessment and Plan 66 yo male with STEMI, found to have occluded LAD stents - STEMI related to occluded LAD stent CHULA to the LAD, now with three stents, balloon angioplasty to distal LAD, good flow afterwards Integrilin, Brilinta, aspirin, Lipitor ICU management echocardiogram Dr. Maxwell following for definitive management - Dyslipidemia: Lipitor - prior CVA: antiplatelet therapy keep in ICU today, transfer out once okay with Dr. Maxwell Level of Care Critical Care Advanced Directives Existing Living Will: Yes Existing Power of Manufacturing Engineer Paint: Yes Resuscitation Status FULL RESUSCITATION VTE Prophylaxis VTE Risk Assessment Done? Y/N: Yes Risk Level: Moderate
[2017-04-05] MEDS ORDERED: Integrelin infusion --> STOP ORDER ONE (23:00)
[2017-04-05] MEDS ORDERED: NURSING VERBAL MED ORDER ONE (23:15)
[2017-04-06] MEDS ORDERED: COUGH DROP (SUGAR FREE) LOZ 24 LOZ/1 BOX ONE (00:41)
[2017-04-06] MEDS ORDERED: COUGH DROP (SUGAR FREE) LOZ 24 LOZ/1 BOX PO PRN (01:00)
[2017-04-06 05:41] LABS: BASO % 0.1 %; BASO ABS # 0.02 K/uL (0-0.2); COMPLETE YES; EOS % 0.1 %; HEMATOCRIT 43.4 % (42-52); IG% 0.3 %; LYMPH % 9.3 %; LYMPH ABS # 1.33 K/uL (1.2-3.4); MEAN CELL VOLUME 96.4 fL (80-100); MEAN CORPUSCULAR HEMOGLOBIN 34.4 pg (25-34); MEAN CORPUSCULAR HGB CONC 35.7 g/dl (32-36); MEAN PLATELET VOLUME 11.2 fL (7.4-10.4); MONO % 9.1 %; NEUT % 81.1 %; PLATELET COUNT 235 K/uL (130-400); WHITE BLOOD COUNT 14.23 K/uL (4.8-10.8)
[2017-04-06 06:20] LABS: BUN/CREATININE RATIO 11.2 (10-20); CALCIUM 8.3 mg/dl (8.5-10.1); CREATININE 1.19 mg/dl (0.60-1.40); POTASSIUM 3.7 mmol/L (3.5-5.1)
[2017-04-06 06:45] LABS: CHOLESTEROL/HDL RATIO 2.8
--- NOTE | 2017-04-06 06:58 | CARDIOLOGY CONSULTATION ---
DATE OF CONSULTATION: 04/05/2017 CONSULTATION REQUESTED BY: Dr. Espinoza. REASON FOR CONSULTATION: Anterior STEMI/heart alert. HISTORY OF PRESENT ILLNESS: Mr. Delgado is a 66-year-old man with a history of complex coronary artery disease, status post prior PCI with drug-eluting stent to his LAD and circumflex, hypertension, hyperlipidemia and prior CVA with mild residual memory deficits, who presented today with approximately 30-minute acute onset of chest pain. The patient stated that he was in his usual state of health when while in the shower developed acute pain. The patient rated pain as 10/10 [address] himself to the Emergency Department. Upon arrival, EKG showed new anterior ST elevation with frequent ventricular ectopy and a heart alert was activated. The patient was taken emergently to the cardiac catheterization lab where he underwent coronary angiography via right radial artery. This revealed occluded proximal LAD stents/stent thrombosis. He was treated with PCI with a third overlapping drug-eluting stent placed distally to his prior two. All the stents were aggressively post-dilated. His distal/apical LAD was also treated with plain balloon angioplasty. Post-procedure, he had MARIO-3 flow in the LAD and his chest pain was resolved. PAST MEDICAL HISTORY: 1. Coronary artery disease status post prior lateral STEMI with occluded circumflex in 05/2015. At that time, he had 2 drug-eluting stents placed to his circumflex. He was noted at that time to have severe LAD disease. Attempt at PCI during the same hospitalization at [facility] was unsuccessful and he was transferred to where he underwent placement of 2 drug-eluting stents post atherectomy to his LAD. 2. Hypertension. 3. Hyperlipidemia. 4. Obstructive sleep apnea. 5. Prior cerebrovascular accident with memory deficits. SURGICAL HISTORY: History of hernia repair. FAMILY HISTORY: No history of premature coronary artery disease. SOCIAL HISTORY: He drinks 1 or 2 drinks per day. Previously smoked. No other drugs. HOME MEDICATIONS: Include aspirin 81, atorvastatin 80, baclofen, biotin, cholecalciferol, clopidogrel 75 mg daily, coenzyme Q10, lisinopril 5, sublingual nitroglycerin, omega-3 fatty acid, thiamine and vitamin E. ALLERGIES: No known drug allergies. PHYSICAL EXAMINATION: VITAL SIGNS: Temperature 36.8, pulse 78, blood pressure 128/87, satting 97% on 2 liters. GENERAL: Initially, the patient appeared in distress, uncomfortable, but post procedure, he appears comfortable. HEENT: Sclerae are anicteric. Oropharynx is clear. NECK: Supple with no lymphadenopathy. LUNGS: His lungs are clear to auscultation bilaterally. HEART: He has a regular rhythm with no appreciable murmurs, rubs or gallops. ABDOMEN: Soft, nontender, nondistended with positive bowel sounds. EXTREMITIES: Warm. He has trace lower extremity edema. SKIN: No rashes or lesions. NEUROLOGIC: Grossly nonfocal. DATA: White blood cell count 10.3, hemoglobin 16.7, platelets are 275. INR was 1.0. Sodium 141, potassium 3.8, BUN 13, creatinine 1.5. His initial [id number] troponin was negative. LFTs were within normal limits. EKG showed sinus rhythm with ST elevation in V2 through V6 with occasional PVCs. IMPRESSION AND PLAN: 1. Anterior ST-segment elevation myocardial infarction/ stent thrombosis, status post primary percutaneous coronary intervention with mid left anterior descending stent placement. 2. History of multivessel disease, status post prior interventions including to his left anterior descending artery and circumflex. 3. Hypertension. 4. Hyperlipidemia. 5. Prior cerebrovascular accident. Mr. Delgado presented today with acute onset of chest pain, found to have anterior ST elevation in an EKG with an occluded proximal mid LAD stent. Angiography and IVUS suggested that potential cause was plaque rupture distal to his prior stents and a third stent was placed overlapping his prior two. He also had some apical disease which was treated with balloon angioplasty. Going forward, I stressed to the patient and his the importance of adherence to likely lifelong dual-antiplatelet therapy. He was loaded with ticagrelor in the chemical laboratory assistant and will continue at least while in hospital. In the setting of his distal occlusion/thrombus, we will continue on Integrilin for 8 hours. Continue to trend troponins until peaks. We will repeat an echocardiogram tomorrow a.m. We will continue home statin and DONYA inhibitor. Start on beta-leisa and titrate as able. We will continue to follow while in hospital. Thank you for allowing us to participate in the care of this patient. Please contact with any questions.
[2017-04-06 07:01] VITALS: BP 123/80; PULSE 68; TEMP 36.6; O2SAT 92
[2017-04-06] MEDS ORDERED: PERFLUTREN LIPID MICROSPHERE (DEFINITY) IV ONE (07:08)
[2017-04-06 07:41] LABS: ESTIMATED AVERAGE GLUCOSE 105 mg/dl; HA1C FLAG Normal (Normal)
[2017-04-06] MEDS: METOPROLOL TARTRATE 25 MG TAB PO SCH ×2 (07:56→20:28)
[2017-04-06] MEDS: ATORVASTATIN 40 MG TAB PO SCH (07:56)
[2017-04-06] MEDS: TICAGRELOR 90 MG TAB PO SCH ×2 (07:56→20:29)
[2017-04-06] MEDS: THIAMINE HCL 100 MG TAB PO SCH ×2 (07:56→20:29)
[2017-04-06] MEDS: ASPIRIN 81 MG ECTAB PO SCH (07:56)
[2017-04-06] MEDS: LISINOPRIL 5 MG TAB PO SCH (07:57)
[2017-04-06] MEDS ORDERED: NON-FORMULARY MEDICATION (Coenzyme Q10 (Ubidecarenone) (Coq-10) 100 MG) PO SCH (09:00)
--- NOTE | 2017-04-06 09:03 | Clinical Documentation Query ---
JOSE Child : CLINICAL DOCUMENTATION QUERY Patient is a 66 year old male admitted for STEMI, found to have occluded LAD stents. Admission BUN, creatinine, and estimated GFR were 13 mg/dl, 1.52 mg/dl, and 47 ml/min. No documented history of CKD. Repeat values this a.m. (04/06) were 13 mg/d, 1.19 mg/dl, and 63 ml/min after IV hydration. As appropriate, consider documentation as suggested below. Thank you. In your clinical opinion is this patient being managed for: ( ) Acute kidney failure, POA, resolved ( x ) Not Agree se progress notes ( ) Other explanation of clinical findings (Please Explain) ( ) Unable to determine (Please Define) ( ) Need to Discuss The medical record reflects the following clinical findings, treatment, and risk factors. Clinical Indicators: As above Treatment: IVF, serial chemistries Risk Factors: Poor oral intake, medications Please clarify and document your clinical opinion in the progress notes and discharge summary. Terms such as "probable", "suspected", "likely", "questionable", "possible", or "still to be ruled out" are acceptable. IF IN AGREEMENT, YOU MUST DOCUMENT ABOVE DIAGNOSTIC STATEMENT IN DAILY PROGRESS NOTES AND DISCHARGE SUMMARY. This document is not part of the patient's record. Thank You, Noam Griffin RN [phone]
[2017-04-06 10:23] VITALS: BP 118/78; PULSE 63; TEMP 36.6; O2SAT 91
[2017-04-06] MEDS: AMIODARONE / D5W 200 ML IV SCH ×2 (10:30→19:13)
[2017-04-06] MEDS ORDERED: FUROSEMIDE INJ 40 MG in SYRINGE 0 ML IV STA (11:22)
[2017-04-06 12:02] VITALS: BP 126/64; PULSE 63; TEMP 36.7; O2SAT 93
--- NOTE | 2017-04-06 12:42 | CARDIOLOGY PROGRESS NOTE ---
DATE: 04/06/2017 SUBJECTIVE: Mr. Delgado is resting comfortably in bed. He notes a vague 1/10 chest discomfort. This has been present since his procedure yesterday. He also notes some exertional dyspnea. OBJECTIVE: VITAL SIGNS: Blood pressure is 118/78 with a regular pulse of 60. Respiratory rate is 20. The patient is afebrile at 36.6 degrees Celsius. Saturation is 91% on room air. NECK: Supple with full carotid upstrokes. No carotid bruits. Jugular venous pressure is flat at 90 degrees. There is no thyromegaly. CARDIOVASCULAR: Reveals a regular rhythm with normal S1 and S2. Heart sounds are distant. No obvious murmurs. No S3. LUNGS: Clear without rales, rhonchi, or wheezes. ABDOMEN: Soft without bruits. EXTREMITIES: Reveal intact radial artery pulses bilaterally. Dressing on the right wrist is intact. There is no peripheral edema. LABORATORY DATA: CBC notes a hemoglobin of 15.5, hematocrit 43.4, white count 14.2, and platelet count 235,000. Electrolytes note a sodium of 139, potassium 3.7, chloride 104, bicarbonate 27, BUN 13, creatinine 1.1, and glucose 114. Troponin I level peaked at 76.7, currently down to 55.2. EKG notes sinus rhythm with frequent PVCs. There is poor R wave across the anterior precordium. A lateral T-wave inversion noted. Low voltage throughout. IMPRESSION AND PLAN: 1. Acute anterior myocardial infarction -- secondary to proximal LAD stent occlusion with thrombus. Dr. Maxwell placed a third overlapping drug-eluting stent. He also performed balloon angioplasty on the distal LAD. 2. Known coronary artery disease -- history of ST-elevation myocardial infarction in May 2015, receiving 2 drug-eluting stents in the left circumflex. LAD had severe disease and the patient was eventually transferred to [place], where 2 drug-eluting stents were placed along with performance of a atherectomy. 3. Ventricular tachycardia -- occurred at the time of his acute event. We will discontinue amiodarone. 4. Hypertension -- controlled. 5. Hypercholesterolemia. 6. History of cerebrovascular accident - with memory deficits. 7. Obstructive sleep apnea.
--- NOTE | 2017-04-06 13:06 | ECHOCARDIOGRAM REPORT ---
*NOTICE TO RECEIVING [employer] This information is strictly Confidential and protected under [place] law. [place] law prohibits you from making any further disclosure of this information unless further disclosure is expressly permitted by the written consent of the person to whom it pertains or is authorized by law. A general authorization for the release of medical or other information is not sufficient for this purpose. Hospital accepts no responsibility if the information is made available to any other person, INCLUDING THE PATIENT. Interpretation Summary * Name: CHEYANNE BECERRA Study Date: 04/06/2017 06:37 AM BP: 136/79 mmHg * Patient Location: .MSICU\S\E111\S\1 HR: 74 * : 1950 (M/d/yyyy) Gender: Male Height: 67 in * Age: 66 yrs Ethnicity: CA Weight: 223 lb * Ordering Physician: Pineda Maxwell * Referring Physician: Self, Referred * Performed By: Pamela Don RDCS * * Reason For Study: Acute Myocardial Infarction * BSA: 2.1 m2 * -- Conclusions -- * Left ventricular systolic function is moderately reduced. * Large area of akinesis involving the mid distal anterior wall, adjacent anteroseptum, and the entire apex. * Ejection Fraction = 30-35%. * There is mild mitral regurgitation. Procedure Details * A complete two-dimensional transthoracic echocardiogram was performed (2D, M-mode, Doppler and color flow Doppler). * The study was technically difficult. * The study was technically difficult, but visualization was adequate with the administration of Definity ultrasound contrast. * A contrast injection of Definity was performed to improve assessment of LV function. * Contrast was injected into an intravenous site in the right arm. * One vial of Definity ultrasound contrast was diluted in normal saline to a total volume of 10 ml. A total of '1' ml of solution was administered during imaging. * Lot # [id number] of Definity utilized for procedure. * Expiration date . * The attending nurse who injected the contrast agent was Belinda Olivo RN. Left Ventricle * The left ventricle is normal in size. * There is no thrombus. * There is borderline concentric left ventricular hypertrophy. * Ejection Fraction = 30-35%. * Left ventricular systolic function is moderately reduced. * Large area of akinesis involving the mid distal anterior wall, adjacent anteroseptum, and the entire apex. Right Ventricle * The right ventricle is grossly normal size. * The right ventricular systolic function is normal as assessed by tricuspid annular plane systolic excursion (TAPSE) (normal >1.5 cm). Atria * The left atrium is mildly dilated. * Right atrial size is normal. * There is no evidence of atrial septal defect, but resolution does not allow assessment for a patent foramen ovale. Mitral Valve * The mitral valve anatomy is normal. * There is no mitral valve stenosis. * There is mild mitral regurgitation. Tricuspid Valve * The tricuspid valve anatomy is normal. * There is no tricuspid stenosis. * Significant tricuspid regurgitation is absent. Aortic Valve * The aortic valve is not well visualized. * The aortic valve opens well. * Aortic valve sclerosis mild, without significant aortic valvular stenosis. * No aortic regurgitation is present. Pulmonic Valve * The pulmonary valve is not well seen, but the Doppler examination is normal without significant regurgitation or stenosis. Great Vessels * Borderline aortic root dilatation. * The pulmonary is not well visualized. Pericardium/Pleural * There is no pericardial effusion. Great Vessels * Inferior vena cava not well visualized. Left Ventricular Diastolic Function * Grade I diastolic dysfunction, (abnormal relaxation pattern). MMode 2D Measurements and Calculations IVSd 1.2 cm IVSs 1.4 cm LVIDd 6.5 cm LVIDs 5.3 cm LVPWd 1.2 cm LVPWs 1.2 cm IVS/LVPW 0.97 FS 18.6 % EDV(Teich) 218.1 ml ESV(Teich) 136.2 ml EF(Teich) 37.5 % EDV(cubed) 278.2 ml ESV(cubed) 150.2 ml EF(cubed) 46.0 % % IVS thick 19.1 % % LVPW thick 0.89 % LV mass(C)d 349.7 grams LV mass(C)dI 165.1 grams/m\S\2 LV mass(C)s 284.0 grams LV mass(C)sI 134.1 grams/m\S\2 SV(Teich) 81.9 ml SI(Teich) 38.7 ml/m\S\2 SV(cubed) 128.1 ml SI(cubed) 60.5 ml/m\S\2 EPSS 1.5 cm Ao root diam 3.9 cm Ao root area 12.2 cm\S\2 ACS 1.9 cm LA dimension 3.9 cm LA/Ao 0.99 LVAd ap4 49.3 cm\S\2 LVLd ap4 9.5 cm EDV(MOD-sp4) 210.2 ml EDV(sp4-el) 217.5 ml LVAs ap4 34.8 cm\S\2 LVLs ap4 8.6 cm ESV(MOD-sp4) 115.5 ml ESV(sp4-el) 119.3 ml EF(MOD-sp4) 45.1 % EF(sp4-el) 45.1 % LVAd ap2 29.2 cm\S\2 LVLd ap2 7.6 cm EDV(MOD-sp2) 95.5 ml EDV(sp2-el) 95.6 ml LVAs ap2 22.3 cm\S\2 LVLs ap2 6.9 cm ESV(MOD-sp2) 58.3 ml ESV(sp2-el) 60.8 ml EF(MOD-sp2) 39.0 % EF(sp2-el) 36.4 % LVLd %diff -25.19 % EDV(MOD-bp) 158.7 ml LVLs %diff -24.40 % ESV(MOD-bp) 90.7 ml EF(MOD-bp) 42.8 % SV(MOD-sp4) 94.7 ml SI(MOD-sp4) 44.7 ml/m\S\2 SV(MOD-sp2) 37.2 ml SI(MOD-sp2) 17.6 ml/m\S\2 SV(MOD-bp) 67.9 ml SI(MOD-bp) 32.1 ml/m\S\2 SV(sp4-el) 98.2 ml SI(sp4-el) 46.4 ml/m\S\2 SV(sp2-el) 34.8 ml SI(sp2-el) 16.4 ml/m\S\2 Doppler Measurements and Calculations MV E max tierra 55.3 cm/sec MV A max tierra 77.4 cm/sec MV E/A 0.71 MV dec time 0.20 sec Ao V2 max 118.8 cm/sec Ao max PG 5.6 mmHg Ao max PG (full) 3.5 mmHg LV V1 max PG 2.1 mmHg LV V1 max 72.8 cm/sec PA V2 max 75.9 cm/sec PA max PG 2.3 mmHg TR max tierra 234.0 cm/sec
[2017-04-06 13:54] VITALS: BP 126/64; PULSE 63; TEMP 36.7; O2SAT 93
[2017-04-06] MEDS ORDERED: FUROSEMIDE INJ 40 MG in SYRINGE 0 ML IV ONE (15:00)
[2017-04-06 15:23] VITALS: BP 111/63; PULSE 72; TEMP 36.8; O2SAT 93
--- NOTE | 2017-04-06 18:12 | Progress Note ---
Subjective Date of Service: Apr 06, 2017. Subjective Pt evaluation today including: conversation w/ patient, conversation w/ family , physical exam chest pressure improved but still sob notes that breathing was actually fairly short for a few weeks prior to admission - [facility]. chest pressure left since cath - down to a 1-2, was previously very intense, but breathing really not much better. ntoes that too. has voided a good deal with additional lasix given Problem List Medical Problems: (1) Acute CT, inferior wall Status: Acute (2) Acute CT, true posterior wall Status: Acute Review of Systems all other ROS otherwise negative except for as above Objective Vital Signs Date Time Temp Pulse Resp B/P (MAP) Pulse Ox O2 Delivery O2 Flow Rate FiO2 04/06/17 16:00 Room Air 04/06/17 15:23 36.8 72 20 111/63 (79) 93 Room Air 04/06/17 13:54 36.7 63 23 93 2.0 04/06/17 12:03 Room Air 04/06/17 12:02 36.7 63 23 126/64 (84) 93 Room Air 04/06/17 10:23 36.6 63 24 118/78 (91) 91 Room Air 04/06/17 08:05 Room Air 04/06/17 07:01 36.6 68 22 123/80 (94) 92 Room Air 04/06/17 04:00 Nasal Cannula 2.0 04/06/17 00:00 Nasal Cannula 2.0 04/05/17 22:01 74 19 136/79 (98) 94 04/05/17 22:00 73 20 94 04/05/17 21:46 76 19 122/84 (97) 94 04/05/17 21:45 75 24 04/05/17 21:31 75 16 139/79 (99) 93 04/05/17 21:30 72 19 04/05/17 21:16 77 19 138/83 (101) 94 04/05/17 21:15 77 19 04/05/17 21:01 74 18 139/82 (101) 94 04/05/17 21:00 73 16 95 04/05/17 20:46 91 18 137/91 (106) 96 04/05/17 20:45 87 21 04/05/17 20:31 74 21 135/82 (99) 95 04/05/17 20:30 79 14 04/05/17 20:16 74 17 130/79 (96) 96 04/05/17 20:15 73 17 97 04/05/17 20:01 81 22 115/75 (88) 96 04/05/17 20:00 Nasal Cannula 2.0 04/05/17 20:00 78 26 04/05/17 19:46 36.6 83 19 122/74 (90) 96 04/05/17 19:45 82 16 04/05/17 18:45 78 18 120/74 (89) 93 Nasal Cannula 2.0 Physical Exam General Appearance: no apparent distress Eyes: EOMI ENT: hearing grossly normal Neck: trachea midline Respiratory/Chest: no respiratory distress, no accessory muscle use, + rales ( base to mid, no rhonchi no wheeze good effort) Extremities: normal range of motion 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: 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, alert Skin: normal color, warm/dry Laboratory Results Last 24 Hours Test 04/05/17 22:03 04/06/17 00:13 04/06/17 05:31 04/06/17 05:57 Troponin I 76.700 ng/ml 55.200 ng/ml Bedside Glucose 127 mg/dl 108 mg/dl White Blood Count 14.23 K/uL Red Blood Count 4.50 M/uL Hemoglobin 15.5 g/dL Hematocrit 43.4 % Mean Corpuscular Volume 96.4 fL Mean Corpuscular Hemoglobin 34.4 pg Mean Corpuscular Hemoglobin Concent 35.7 g/dl Platelet Count 235 K/uL Mean Platelet Volume 11.2 fL Neutrophils (%) (Auto) 81.1 % Lymphocytes (%) (Auto) 9.3 % Monocytes (%) (Auto) 9.1 % Eosinophils (%) (Auto) 0.1 % Basophils (%) (Auto) 0.1 % Neutrophils # (Auto) 11.52 K/uL Lymphocytes # (Auto) 1.33 K/uL Monocytes # (Auto) 1.30 K/uL Eosinophils # (Auto) 0.02 K/uL Basophils # (Auto) 0.02 K/uL RDW Standard Deviation 44.1 fL RDW Coefficient of Variation 12.7 % Immature Granulocyte % (Auto) 0.3 % Immature Granulocyte # (Auto) 0.04 K/uL Sodium Level 139 mmol/L Potassium Level 3.7 mmol/L Chloride Level 104 mmol/L Carbon Dioxide Level 27 mmol/L Anion Gap 8.0 mmol/L Blood Urea Nitrogen 13 mg/dl Creatinine 1.19 mg/dl Est Creatinine Clear Calc Drug Dose 67.6 ml/min Estimated GFR () 72.8 Estimated GFR (Non- 62.8 BUN/Creatinine Ratio 11.2 Random Glucose 114 mg/dl Estimated Average Glucose 105 mg/dl Hemoglobin A1c 5.3 % Calcium Level 8.3 mg/dl Triglycerides Level 122 mg/dl Cholesterol Level 128 mg/dl HDL Cholesterol 45 mg/dl LDL Cholesterol, Calculated 59 mg/dl VLDL Cholesterol, Calculated 24 mg/dl Cholesterol/HDL Ratio 2.8 Test 04/06/17 13:59 Troponin I 51.100 ng/ml Assessment and Plan 66 yo male with STEMI, found to have occluded LAD stents - STEMI related to occluded LAD stent CHULA to the LAD, now with three stents, balloon angioplasty to distal LAD, good flow afterwards Integrilin, Brilinta, aspirin, Lipitor stable for transfer to telemetry echocardiogram Dr. Maxwell following for definitive management -acute systolic CHF - relates to STEMI and newly weaker myocardium- accounts for residual chest pressure and shortness of breath -additional lasix, follow, med management DREW (POA) related to poor forward flow from above -improved after stent, likely lasix helped given acute systolic CHF - Dyslipidemia: Lipitor - prior CVA: antiplatelet therapy -DVT proph - currently antiplatelets/etc surrounding STEMI will suffice extensively d/w pt and
[2017-04-06 19:40] VITALS: BP 121/57; PULSE 68; TEMP 36.5; O2SAT 92
[2017-04-07] VITALS (7 sets, daily range): BP systolic 99–112; BP diastolic 50–76; PULSE 57–69; TEMP 36.5–37.2; O2SAT 93–95
[2017-04-07] MEDS: AMIODARONE / D5W 200 ML IV SCH (06:00)
[2017-04-07 06:14] LABS: BASO % 0.4 %; BASO ABS # 0.03 K/uL (0-0.2); COMPLETE YES; EOS % 1.8 %; IG% 0.2 %; LYMPH % 16.3 %; LYMPH ABS # 1.35 K/uL (1.2-3.4); MEAN CELL VOLUME 95.2 fL (80-100); MEAN CORPUSCULAR HGB CONC 35.7 g/dl (32-36); MEAN PLATELET VOLUME 11.7 fL (7.4-10.4); MONO % 13.1 %; NEUT % 68.2 %; PLATELET COUNT 184 K/uL (130-400); RED BLOOD COUNT 4.41 M/uL (4.7-6.1); WHITE BLOOD COUNT 8.26 K/uL (4.8-10.8)
[2017-04-07 06:35] LABS: BUN/CREATININE RATIO 13.7 (10-20); CALCIUM 8.6 mg/dl (8.5-10.1); CREATININE 1.33 mg/dl (0.60-1.40); POTASSIUM 3.5 mmol/L (3.5-5.1)
[2017-04-07] MEDS: ASPIRIN 81 MG ECTAB PO SCH (07:46)
[2017-04-07] MEDS: ATORVASTATIN 40 MG TAB PO SCH (07:46)
[2017-04-07] MEDS: CYANOCOBALAMIN 500 MCG TAB (VIT B-12) PO SCH (07:47)
[2017-04-07] MEDS: METOPROLOL TARTRATE 25 MG TAB PO SCH ×2 (07:47→21:05)
[2017-04-07] MEDS: THIAMINE HCL 100 MG TAB PO SCH ×2 (07:47→21:05)
[2017-04-07] MEDS: TICAGRELOR 90 MG TAB PO SCH ×2 (07:48→21:05)
[2017-04-07] MEDS: LISINOPRIL 5 MG TAB PO SCH (07:48)
--- NOTE | 2017-04-07 11:55 | CARDIOLOGY PROGRESS NOTE ---
DATE: 04/07/2017 SUBJECTIVE: Mr. Delgado is resting comfortably in bed without complaints of chest pain. His dyspnea has also improved. He is anxious for hospital discharge. OBJECTIVE: VITAL SIGNS: Blood pressure is 110/60 with a regular pulse of 70. Respiratory rate is 16. The patient is afebrile at 37.2 degree Celsius. Saturations are 94% on room air. NECK: Supple with full carotid artery upstrokes. No carotid bruits. Jugular venous pressure is flat at 90 degrees. There is no thyromegaly. CARDIOVASCULAR: Reveals a regular rhythm with normal S1 and S2. Heart sounds are distant. No obvious murmurs. LUNGS: Clear without rales, rhonchi, or wheezes. ABDOMEN: Obese without bruits. EXTREMITIES: Reveal intact radial artery pulses bilaterally. There is no peripheral edema. DATA: CBC notes hemoglobin of 15.0, hematocrit 42.0, white count 8.2, and platelet count 184,000. Electrolytes note sodium of 138, potassium 3.5, chloride 104, bicarbonate 27, BUN 18, creatinine 1.3, and glucose 99. Troponin I level down to 51.1. baker helper notes frequent PVCs. IMPRESSION AND PLAN: 1. Acute anterior wall myocardial infarction - secondary to proximal left anterior descending stent occlusion. Dr. Maxwell placed a third overlapping drug-eluting stents and also performed a balloon angioplasty to the distal left anterior descending. Continue with optimal medical management. 2. Known coronary artery disease - history of ST elevation myocardial infarction in 05/2015. Two drug-eluting stents were placed in the left circumflex. Left anterior descending had significant disease, and the patient was eventually transferred to [facility], where 2 drug-eluting stents were placed along with an atherectomy. 3. Ventricular tachycardia - resolved. We will discontinue amiodarone after the current bag. This dysrhythmia was likely secondary to his acute event. 4. Left ventricular dysfunction - ejection fraction of 30% to 35% on echocardiogram performed yesterday. An anteroapical wall motion abnormality was identified. 5. Hypertension - controlled. 6. Hypercholesterolemia. 7. History of cerebrovascular accident - with memory deficits. 8. Obstructive sleep apnea.
[2017-04-07] MEDS ORDERED: NURSING VERBAL MED ORDER ONE (12:45)
--- NOTE | 2017-04-07 14:45 | Progress Note ---
Subjective Date of Service: Apr 07, 2017. Subjective Pt evaluation today including: conversation w/ patient, physical exam, chart review, lab review, review of studies, conversation w/ field service consultant, review of inpatient medication list feeling better breathing easier no orthopnea no chest pain discussed overview of med management and lifestyle will discuss further when present given pt's memory issues Problem List Medical Problems: (1) Acute MN, inferior wall Status: Acute (2) Acute MN, true posterior wall Status: Acute Review of Systems all other ROS otherwise negative except for as above Objective Vital Signs Date Time Temp Pulse Resp B/P (MAP) Pulse Ox O2 Delivery O2 Flow Rate FiO2 04/07/17 12:00 Room Air 04/07/17 11:26 37.2 69 16 109/66 (80) 94 Room Air 04/07/17 08:00 Room Air 04/07/17 07:52 37.0 61 18 105/64 (78) 94 Room Air 04/07/17 04:00 Room Air 04/07/17 03:17 36.7 57 18 103/50 (67) 93 Room Air 04/07/17 00:04 36.7 65 18 110/54 (72) 94 Room Air 04/07/17 00:00 Room Air 04/06/17 20:00 Room Air 04/06/17 19:40 36.5 68 18 121/57 (78) 92 Room Air 04/06/17 16:00 Room Air 04/06/17 15:23 36.8 72 20 111/63 (79) 93 Room Air Physical Exam General Appearance: no apparent distress Eyes: EOMI ENT: hearing grossly normal Neck: trachea midline Respiratory/Chest: no respiratory distress, no accessory muscle use, + pertinent finding (no further rales, but is coarse at bases b/l no rhonchi no wheeze good effort) Cardiovascular: regular rate, rhythm (somewht distant) 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: 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, alert, normal mood/affect Skin: normal color, warm/dry Laboratory Results Last 24 Hours Test 04/07/17 05:40 White Blood Count 8.26 K/uL Red Blood Count 4.41 M/uL Hemoglobin 15.0 g/dL Hematocrit 42.0 % Mean Corpuscular Volume 95.2 fL Mean Corpuscular Hemoglobin 34.0 pg Mean Corpuscular Hemoglobin Concent 35.7 g/dl Platelet Count 184 K/uL Mean Platelet Volume 11.7 fL Neutrophils (%) (Auto) 68.2 % Lymphocytes (%) (Auto) 16.3 % Monocytes (%) (Auto) 13.1 % Eosinophils (%) (Auto) 1.8 % Basophils (%) (Auto) 0.4 % Neutrophils # (Auto) 5.63 K/uL Lymphocytes # (Auto) 1.35 K/uL Monocytes # (Auto) 1.08 K/uL Eosinophils # (Auto) 0.15 K/uL Basophils # (Auto) 0.03 K/uL RDW Standard Deviation 43.7 fL RDW Coefficient of Variation 12.7 % Immature Granulocyte % (Auto) 0.2 % Immature Granulocyte # (Auto) 0.02 K/uL Sodium Level 138 mmol/L Potassium Level 3.5 mmol/L Chloride Level 104 mmol/L Carbon Dioxide Level 27 mmol/L Anion Gap 7.0 mmol/L Blood Urea Nitrogen 18 mg/dl Creatinine 1.33 mg/dl Est Creatinine Clear Calc Drug Dose 60.2 ml/min Estimated GFR () 63.7 Estimated GFR (Non- 54.9 BUN/Creatinine Ratio 13.7 Random Glucose 99 mg/dl Calcium Level 8.6 mg/dl Assessment and Plan 66 yo male with STEMI, found to have occluded LAD stents - STEMI related to occluded LAD stent CHULA to the LAD, now with three stents, balloon angioplasty to distal LAD, good flow afterwards Brilinta, aspirin, Lipitor, lisinopril, metoprolol, prn nitrates echocardiogram noted - reduced EF w RWMA discussed w pt Dr. Maxwell following as well med management, lifestyle change -acute systolic CHF - relates to STEMI and newly weaker myocardium- -has improved, but still slightly coarse at bases - additional 20mg lasix x1 DREW (POA) related to poor forward flow from above -improved after stent, likely lasix helped given acute systolic CHF - Dyslipidemia: Lipitor - prior CVA: antiplatelet therapy -DVT proph - currently antiplatelets/etc surrounding STEMI will suffice
[2017-04-07] MEDS ORDERED: FUROSEMIDE INJ 20 MG in SYRINGE 0 ML IV ONE (15:00)
[2017-04-08 03:28] VITALS: BP 111/63; PULSE 63; TEMP 37.2; O2SAT 95
[2017-04-08 07:10] LABS: BASO % 0.4 %; BASO ABS # 0.04 K/uL (0-0.2); COMPLETE YES; EOS % 3.6 %; HEMATOCRIT 42.2 % (42-52); IG% 0.5 %; LYMPH % 13.8 %; LYMPH ABS # 1.47 K/uL (1.2-3.4); MEAN CORPUSCULAR HGB CONC 35.8 g/dl (32-36); MEAN PLATELET VOLUME 11.3 fL (7.4-10.4); MONO % 11.7 %; PLATELET COUNT 183 K/uL (130-400); RED BLOOD COUNT 4.44 M/uL (4.7-6.1); WHITE BLOOD COUNT 10.66 K/uL (4.8-10.8)
[2017-04-08 07:39] VITALS: BP 114/64; PULSE 64; TEMP 37.1; O2SAT 95
[2017-04-08 07:40] LABS: BUN/CREATININE RATIO 12.5 (10-20); CREATININE 1.32 mg/dl (0.60-1.40); POTASSIUM 3.5 mmol/L (3.5-5.1)
[2017-04-08] MEDS: METOPROLOL TARTRATE 25 MG TAB PO SCH (07:52)
[2017-04-08] MEDS: ASPIRIN 81 MG ECTAB PO SCH (07:52)
[2017-04-08] MEDS: CYANOCOBALAMIN 500 MCG TAB (VIT B-12) PO SCH (07:52)
[2017-04-08] MEDS: THIAMINE HCL 100 MG TAB PO SCH (07:52)
[2017-04-08] MEDS: ATORVASTATIN 40 MG TAB PO SCH (07:52)
[2017-04-08] MEDS: TICAGRELOR 90 MG TAB PO SCH (07:52)
[2017-04-08] MEDS: LISINOPRIL 5 MG TAB PO SCH (07:53)
[2017-04-08] MEDS ORDERED: BRL90 PO (09:40)
[2017-04-08] MEDS ORDERED: NTRSLP4 SL (09:40)
[2017-04-08] MEDS ORDERED: LPR25 PO (09:40)
--- NOTE | 2017-04-08 09:42 | CARDIOLOGY PROGRESS NOTE ---
DATE: 04/08/2017 SUBJECTIVE: Mr. Delgado is resting comfortably at the bedside without complaints of chest pain or dyspnea. Anxious for hospital discharge. OBJECTIVE: VITAL SIGNS: Blood pressure 115/65 with a regular pulse of 60. Respiratory rate is 18. The patient is afebrile at 37.1 degrees Celsius. Saturation 95% on room air. NECK: Supple with full carotid upstrokes. No carotid bruits. Jugular venous pressure is flat at 90 degrees. There is no thyromegaly. CARDIOVASCULAR: Reveals a regular rhythm with normal S1 and S2. Heart sounds are distant. No obvious murmurs. LUNGS: Clear without rales, rhonchi or wheezes. ABDOMEN: Obese without bruits. EXTREMITIES: Show intact radial artery pulses bilaterally. There is no peripheral edema. LABORATORY DATA: CBC notes hemoglobin of 15.1, hematocrit 42.2, white count 10.6, platelet count 183,000. Electrolytes note a sodium of 137, potassium 2.5, chloride 104, bicarbonate 26, BUN 70, creatinine 1.0, glucose 97. aquatic performer notes occasional PVCs. IMPRESSION AND PLAN: 1. Acute anterior wall myocardial infarction secondary to proximal LAD stent occlusion. Dr. Maxwell placed a third overlapping drug-eluting stent in that area. Also performed a balloon angioplasty to the distal LAD. Continue medical management. 2. Known coronary artery disease -- history of ST elevation myocardial infarction in May 2015. Two LAD stents placed to the left circumflex. Additional stenting procedure was performed at [facility]. Two stents placed in the LAD along with an atherectomy. 3. Ventricular tachycardia -- resolved. 4. Left ventricular dysfunction -- ejection fraction of 30-35% with an anteroapical wall motion abnormality. We will recheck as an outpatient. 5. Hypertension -- controlled. 6. Hypercholesterolemia -- continue statin. 7. History of cerebrovascular accident -- with memory deficits.
--- NOTE | 2017-04-08 10:01 | Discharge Instructions ---
Discharge Instructions Date of Service Apr 08, 2017. Admission Reason for Admission: STEMI Discharge Discharge Diagnosis / Problem: heart attack Discharge Goals Goal(s): Improve disease control, Learn about illness, Diagnostic testing, Therapeutic intervention Activity Recommendations Activity Limitations: resume your previous activity (over time, under the guidance of cardiac rehab) . Instructions / Follow-Up Instructions / Follow-Up heart attack -you had a completely blocked artery in the area of your prior stenting. this was opened back up successfully by Dr Maxwell, but there was downstream damage to your heart wall from before the blood vessel was re-opened (see "congestive heart failure" below) -moving forward we take multiple steps to prevent future heart attacks: medications: your regular medications you were on previously, when taken regularly, actually carry about an 80% risk reduction in having another heart attack - so do not stop taking them or change dosing without talking to your doctors. if you feel you're having side effects or there are other problems with the medicines, talk with your doctors; fortunately most people tolerate these really well though. -brilinta - we've changed you from plavix to brilinta as one of your blood thinners. stop taking the plavix (clopidogrel), start taking the brilinta twice a day instead. this is in addition to the aspirin to keep your blood thin enough to not clot up the stent again -metoprolol - in a class of medications called beta blockers, metoprolol acts to relax your heart muscle and slow heart rate, taking strain off of it. by this mechanism, it is very protective against future heart attacks (and actually helps manage the weaker heart muscle as well) lifestyle: -it's been well studied that a healthy lifestyle (involving eating healthy, regular exercise, and no tobacco) can reduce your chances of a future heart attack -eating habits: the best data on reducing chances of future heart attacks involves a meditereannean style diet - eating mostly fruits and vegetables, lean sources of protein (chicken without the skin, fish, pork with the fat cut off, etc) and avoiding saturated fats (fatty meats, red meats, fried foods, snack food fats, etc) and avoiding simple/starchy/sugary carbs (breads, pastas, potatoes, sweets/sugary drinks etc) -exercise - after cardiology/cardiac rehab have given you the "green light" to start exercising, the goal is going to be to do 30 minutes of light cardiovascular exercise (such as a brisk walk) every day. of course because "life gets in the way" most people aren't able to pull off every single day, but if you strive for that, you'll likely succeed more days than not. congestive heart failure -while i dislike the term, because it sounds so ominous, congestive heart failure is the medical diagnosis to describe a heart muscle that is weaker and less able to pump blood forward. since your heart attack has reduced your heart 's squeeze (called ejection fraction) from a normal 55% to a lower 35%, you can have a propensity to have fluid back up from your lungs. this is what happened that required the diuretic through the IV while you were here. your lungs are "dry" now, and as long as you follow through with proper diet it's not likely that you'll need an ongoing fluid pill. the main thing to keep yourself out of trouble in this respect is to avoid sodium. when your kidneys see sodium, they have to hold on to water; therefore when your kidneys see a lot of sodium, they have to hold on to a lot of water -- which can then flood your system and lead to fluid getting into your lungs. remember that sodium is far more than just salt. sodium is present in just about everything prepackaged as a flavoring and preservative agent. learn to read labels carefully to look at not only how much sodium is in a serving, but also how big a serving size is -as a rule, try to stay under 2000mg of sodium in a day, and less than 400mg of sodium in a meal. if you do this, it's very likely you'll stay out of any kind of trouble with fluid backing up into your lungs -a nice rule for safety is to weigh yourself every day - if you gain more than a pound in 24 hours, it's almost certainly fluid weight not "real" weight - which can tell you to be extra careful about sodium, or, if you see weight gain and a new degree of shortness of breath, would necessitate a call to the doctor for a possible short course of a fluid pill Home Care: * Take your medications exactly as directed. Don't skip doses. * Remember that recovery after a heart attack takes time. Plan to rest for at lease 4-8 weeks while you recover. Then return to normal activity when your doctor says it's okay. * Ask your doctor about joining a heart rehabilitation program. * Tell your doctor if you are feeling depressed. Feelings of sadness are common after a heart attack, but it is important that you speak to someone if you are feeling overwhelmed by these feelings. * If you are having chest pain, call 911 for an ambulance. Do NOT drive yourself to the hospital. * Ask your family members to learn CPR. * Learn to take your own blood pressure and pulse. Keep a record of your results. Ask your doctor when you should seek emergency medical attention. He or she will tell you which blood pressure reading is dangerous. Lifestyle Changes: * Maintain a healthy weight. Get help to lose any extra pounds. * Cut back on salt. * Limit canned, dried, packaged, and fast foods. * Don't add salt to your food. * Season foods with herbs instead of salt when you cook. * Break the smoking habit. Enroll in a stop-smoking program to improve your chances of success. * Limit fatty foods. * Ask your doctor about having your lipid levels checked regularly. * Build up your activity according to your doctor's recommendation. * Ask your doctor when it's okay to resume sexual activity. * Tell your doctor about any erectile dysfunction (ED) medication you are taking. Some ED medications are not safe if you take certain heart medications. * Try to manage stress. Follow Up: It is important for you to keep your follow up appointments with your medical provider. Current Hospital Diet Patient's current hospital diet: AHA Diet (Heart Healthy) Discharge Diet Recommended Diet: AHA Diet (Heart Healthy) (see above for more details) Pending Studies Studies pending at discharge: no Laboratory Results Hemoglobin A1c Test 04/06/17 05:31 Range/Units Estimated Average Glucose 105 mg/dl Hemoglobin A1c 5.3 4.5-5.6 % Lipid Panel Test 04/06/17 05:31 Range/Units Triglycerides Level 122 0-150 mg/dl Cholesterol Level 128 0-200 mg/dl HDL Cholesterol 45 mg/dl Cholesterol/HDL Ratio 2.8 LDL Cholesterol, Calculated 59 mg/dl Medical Emergencies . Who to Call and When: Medical Emergencies: If at any time you feel your situation is an emergency, please call 911 immediately. Call 911 immediately or go to your nearest Emergency Room if you experience any of the following: Warning Signs and Symptoms of a Heart Attack * Chest pain that is not relieved by medication * Shortness of breath . Non-Emergent Contact Non-Emergency issues call your: Primary Care Provider, Business Continuity Specialist . . "Provider Documentation" section prepared by Too Mars. . AMI Core Measures Reason no ASA as I/P: Treatment provided - N/A Reason no ASA at D/C: Treatment provided - N/A Reason no statin as I/P: Treatment provided - N/A Reason no statin at D/C: Treatment provided - N/A VTE Core Measure Inpt VTE Proph given/why not?: Other Anticoagulation (antiplatelets, anticoagulants given surrounding [place], as well as ambulation)
--- NOTE | 2017-04-08 10:03 | Discharge Instructions ---
Discharge Instructions Date of Service Apr 08, 2017. Admission Reason for Admission: STEMI Discharge Discharge Diagnosis / Problem: heart attack; please reference more detailed discharge instructions. Discharge Goals Goal(s): Diagnostic testing, Therapeutic intervention Activity Recommendations Activity Limitations: resume your previous activity (after approval by cardiology and cardiac rehab) . Instructions / Follow-Up Instructions / Follow-Up Call your Primary Care doctor if any of the following symptoms or problems start or get worse: * Shortness of breath or difficulty breathing * Wake up at night short of breath * Chest pain * Cough * Swelling of your hands, feet, or legs * More fatigued or tired with your normal activity * Palpitations - sudden fast heart beats WEIGHT * Weigh yourself every morning after using the bathroom. * Use the same scale. * Wear the same amount of clothing. * Write your weight down on a chart. * Call your Primary Care doctor if you gain more than 2-3 pounds in 1-2 days. MEDICATIONS * Use this discharge instruction sheet for medication instructions. * Take your medications at the time your doctor ordered. * Do not skip a dose of your medicines. * If you miss a dose of medicine, take it as soon as possible, but DO NOT DOUBLE A DOSE. * Read your medicine information when you get home. * Know all of the side effects of your medicine. If in doubt, ask your pharmacist * Call your Primary Care doctor's office if you have any side effects. * Be sure all of your doctors know what medicine and herbs you take (including cold, flu, and herbal medicine). Take the following with you to your follow-up doctor appointments: * Weight Chart * Medication List * List of questions Do not drink excessive alcohol, beer or wine. Current Hospital Diet Patient's current hospital diet: AHA Diet (Heart Healthy) Discharge Diet Recommended Diet: AHA Diet (Heart Healthy) (see more detailed instructions) Pending Studies Studies pending at discharge: no Laboratory Results Hemoglobin A1c Test 04/06/17 05:31 Range/Units Estimated Average Glucose 105 mg/dl Hemoglobin A1c 5.3 4.5-5.6 % Lipid Panel Test 04/06/17 05:31 Range/Units Triglycerides Level 122 0-150 mg/dl Cholesterol Level 128 0-200 mg/dl HDL Cholesterol 45 mg/dl Cholesterol/HDL Ratio 2.8 LDL Cholesterol, Calculated 59 mg/dl Medical Emergencies . Who to Call and When: Call 911 or go to the Emergency Room if: * If at any time you feel your situation is an emergency * You have tightness or pain in your chest that does not go away with rest or Nitroglycerin * You are very short of breath even with rest . Non-Emergent Contact Non-Emergency issues call your: Primary Care Provider, Public Health Technologist . . "Provider Documentation" section prepared by Too Mars. . VTE Core Measure Inpt VTE Proph given/why not?: Other Anticoagulation (antiplatelets, anticoagulants given surrounding [place], as well as ambulation)
[2017-04-08] MEDS ORDERED: NURSING VERBAL MED ORDER ONE (11:00)
[2017-04-08] MEDS ORDERED: TICAGRELOR 90 MG TAB PO SCH (11:00)
[2017-04-08 11:06] VITALS: BP 114/64; PULSE 64; TEMP 37.1; O2SAT 95
--- NOTE | 2017-04-08 16:42 | Discharge Summary ---
Discharge Summary Date of Service Apr 08, 2017. Discharge Summary Admission Date: Apr 05, 2017 at 14:54 Discharge Date: Apr 08, 2017 Discharge Disposition: Home Principal Diagnosis: STEMI Immunizations: Have You Had Influenza Vaccine: No History of Tetanus Vaccine?: Unknown History of Pneumococcal: No History of Hepatitis B Vaccine: Unknown Procedures: Procedure Note Procedure Date Apr 05, 2017. 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 Estimated Blood Loss 20 Medication(s) Fentanyl, Heparin, Integrilin, Nicardipine, Nitroglycerin, Versed, Lidocaine 1% ticagrelor Summary of Findings Indication: STEMI/Heart Alert Access: 6Fr right Catheters: EBU 3.75; JR 4 diagnostic catheter Findings: Acutely occluded LAD - very late stent thrombosis -- PCI -- Antithrombotic therapy: Heparin, integrilin, ticagrelor Procedure: LM cannulated with EBU 3.75 guide BMW wire passed across lesion into distal vessel Intrastent/post stent lesions predilated with 2.5 compliant balloon Prior stents post-dilated with 3.0 balloon IVUS confirmed well-apposed stents. No proximal disease. Mid segment plaque and thrombus. Dilated lesion distal to prior stents - stented with 2.5 x 30 Pedro CHULA Stent post-dilated with 3.0 noncompliant balloon IC vasodilators administered for spasm Noted to have distal/apical LAD occlusion with apparent thrombus. Apical LAD ballooned gently with 1.5 and 2.0 balloon with re-established flow Post procedure MARIO 3 flow, stent well expanded with minimal residual stenosis and no apparent cardiac complications. Arterial Closure: TR Band Summary: 1. Anterior STEMI/Occluded proximal LAD/Very late stent thrombosis 2. Successful PCI of LAD stent thrombosis with 2.5 x 30 Lizemores CHULA placed to mid LAD overlapping distal aspect of prior stents. (All stents post-dilated with 3.0 NC balloon) - POBA of distal/apical LAD with 2.0 balloon. Recommendations: Admit to ICU for continued monitoring Loaded with Ticagrelor 180mg in manager labor delivery Continue integrilin for 8 hrs Continue dual-antiplatelet therapy indefinitely Trend troponins until peak, Check Echo Uptitrate beta-leisa/DONYA as BP allows High-dose statin Consult cardiac Rehab Hemodynamics Rest Ao: 118/76/98 Final Ao: 114/74/93 LV: 120/35 Recommendations PCI without planned CABG Specimens None Radiation Exposure (mGy) 6279 Contrast (mls) 215 Visi Fluids (cc crystalloids) 330 ml Drains none Anesthesia moderate Procedural Complication(s) None Disposition ICU ACC Data Cardiac Status Clinical evaluation leading to the procedure CAD Presntation: STEMI Anginal Classification: CCS III Heart Failure: No, NYHA Class: CCS I Cardiogenic Shock w/in 24Hrs: No Cardiac Arrest w/in 24Hrs: No Imaging studies past 6 months: No Closure Device Percutaneous Entry Location: Radial Closure Device: Radial Band Recommendations: PCI without planned CABG PCI Indication: Immediate PCI for STEMI Lesion Segment Name: proximal LAD Culprit Artery: Yes Stenosis Prior to Rx (%): 100 Chronic Total Occlusion: No IVUS: Yes FFR: No Pre-Procedure MARIO Flow: 0 Previously Treated Lesion: Yes Treated Lesion: Timeframe: 1-2 years Treated with Stent: Yes In-Stent Thrombosis: Yes Stent Type: CHULA Lesion Complexity: High/C Lesion Length (mm): 30 Thrombus Present: Yes Bifurcation Lesion: No Guidewire Across Lesion: Yes Guidewire: Stenosis Post-Procedure (%): 0 Post-Procedure MARIO Flow: 3 Device(s) Deployed: Yes Intraprocedure Events Significant Dissection: No Perforation: No echo: Interpretation Summary Name: CHEYANNE BECERRA Study Date: 04/06/2017 06:37 AM BP: 136/79 mmHg Patient Location: [facility]\S\E111\S\1 HR: 74 : 1950 (M/d/yyyy) Gender: Male Height: 67 in Age: 66 yrs Ethnicity: [place] Weight: 223 lb Ordering Physician: Pineda Maxwell Referring Physician: Self, Referred Performed By: Pamela Don RDCS Reason For Study: Acute Myocardial Infarction BSA: 2.1 m2 -- Conclusions -- Left ventricular systolic function is moderately reduced. Large area of akinesis involving the mid distal anterior wall, adjacent anteroseptum, and the entire apex. Ejection Fraction = 30-35%. There is mild mitral regurgitation. Procedure Details A complete two-dimensional transthoracic echocardiogram was performed (2D, M- mode, Doppler and color flow Doppler). The study was technically difficult. The study was technically difficult, but visualization was adequate with the administration of Definity ultrasound contrast. A contrast injection of Definity was performed to improve assessment of LV function. Contrast was injected into an intravenous site in the right arm. One vial of Definity ultrasound contrast was diluted in normal saline to a total volume of 10 ml. A total of '1' ml of solution was administered during imaging. Lot # [id number] of Definity utilized for procedure. Expiration date . The attending nurse who injected the contrast agent was Belinda Olivo RN. Left Ventricle The left ventricle is normal in size. There is no thrombus. There is borderline concentric left ventricular hypertrophy. Ejection Fraction = 30-35%. Left ventricular systolic function is moderately reduced. Large area of akinesis involving the mid distal anterior wall, adjacent anteroseptum, and the entire apex. Right Ventricle The right ventricle is grossly normal size. The right ventricular systolic function is normal as assessed by tricuspid annular plane systolic excursion (TAPSE) (normal >1.5 cm). Atria The left atrium is mildly dilated. Right atrial size is normal. There is no evidence of atrial septal defect, but resolution does not allow assessment for a patent foramen ovale. Mitral Valve The mitral valve anatomy is normal. There is no mitral valve stenosis. There is mild mitral regurgitation. Tricuspid Valve The tricuspid valve anatomy is normal. There is no tricuspid stenosis. Significant tricuspid regurgitation is absent. Aortic Valve The aortic valve is not well visualized. The aortic valve opens well. Aortic valve sclerosis mild, without significant aortic valvular stenosis. No aortic regurgitation is present. Pulmonic Valve The pulmonary valve is not well seen, but the Doppler examination is normal without significant regurgitation or stenosis. Great Vessels Borderline aortic root dilatation. The pulmonary is not well visualized. Pericardium/Pleural There is no pericardial effusion. Great Vessels Inferior vena cava not well visualized. Left Ventricular Diastolic Function Grade I diastolic dysfunction, (abnormal relaxation pattern). Hemoglobin A1c Test 04/06/17 05:31 Range/Units Estimated Average Glucose 105 mg/dl Hemoglobin A1c 5.3 4.5-5.6 % Lipid Panel Test 04/06/17 05:31 Range/Units Triglycerides Level 122 0-150 mg/dl Cholesterol Level 128 0-200 mg/dl HDL Cholesterol 45 mg/dl Cholesterol/HDL Ratio 2.8 LDL Cholesterol, Calculated 59 mg/dl Last Resulted CBC 04/08/17 06:58 Red Blood Count 4.44, Mean Corpuscular Volume 95.0, Mean Corpuscular Hemoglobin 34.0, Mean Corpuscular Hemoglobin Concent 35.8, Mean Platelet Volume 11.3, Neutrophils (%) (Auto) 70.0, Lymphocytes (%) (Auto) 13.8, Monocytes (%) (Auto) 11.7, Eosinophils (%) (Auto) 3.6, Basophils (%) (Auto) 0.4, Neutrophils # (Auto ) 7.47, Lymphocytes # (Auto) 1.47, Monocytes # (Auto) 1.25, Eosinophils # (Auto ) 0.38, Basophils # (Auto) 0.04 Last Resulted BMP 04/08/17 06:58 Item Value Date Time Troponin I 76.700 ng/ml *H 04/05/17 2203 Troponin I 55.200 ng/ml *H 04/06/17 0531 Troponin I 51.100 ng/ml *H 04/06/17 1359 Consultations: cardiology Medication Reconciliation New Medications: Metoprolol Tartrate (Lopressor) 25 Mg Tab 25 MG PO Q12, #60 TAB Ticagrelor (Brilinta) 90 Mg Tab 90 MG PO BID, #60 TAB Continued Medications: Aspirin (Aspirin Ec) 81 Mg Tab 81 MG PO DAILY, #30 5 Refills Atorvastatin (Lipitor) 80 Mg Tab 80 MG PO DAILY, #30 Baclofen (Lioresal) 10 Mg Tab 10 MG PO BID, TAB Biotin (Biotin) 1,000 Mcg Tab 1000 MCG PO QAM Cholecalciferol (Vitamin D3) 1,000 Unit Cap 1000 INTER.UNIT PO QAM Coenzyme Q10 (Ubidecarenone) (Coq-10) 100 Mg Cap 100 MG PO QAM Garlic-Calcium (Garlic) 1 Tab Tab 1 TAB PO DAILY Lisinopril (Prinivil) 5 Mg Tab 1 TAB PO DAILY, #30 TAB 5 Refills for your heart and blood pressure Nitroglycerin (Nitrostat) 0.4 Mg/1 Tab Subl 0.4 MG SL DIRECTED PRN for Chest Pain, #30 TAB 0 Refills (This prescription has been renewed) may take 1 tab every 5 minutes for chest pain, max 3 in 15 minutes. [place]-3 Fatty Acids (Fish Oil) 1,000 Mg Cap 1 CAP PO QAM Thiamine HCl (Vitamin B-1) 100 Mg Tab 200 MG PO BID, #120 TAB 1 Refill for thiamine deficiency Tocopheryl Acet,Dl-Alpha (Vitamin E) 400 Inter.unit Cap 400 INTER.UNIT PO DAILY, CAP Discontinued Medications: Clopidogrel Bisulfate (Clopidogrel) 75 Mg Tab 75 MG PO QAM, #30 TAB 5 Refills for your heart and stent Discharge Exam Physical Exam: General Appearance: no apparent distress Respiratory/Chest: lungs clear, normal breath sounds, no respiratory distress, no accessory muscle use Cardiovascular: regular rate, rhythm Hospital Course 66 yo male with STEMI, found to have occluded LAD stents - STEMI related to occluded LAD stent CHULA to the LAD, now with three stents, balloon angioplasty to distal LAD, good flow afterwards Brilinta, aspirin, Lipitor, lisinopril, metoprolol, prn nitrates echocardiogram noted - reduced EF w RWMA discussed w pt med management, lifestyle change discussed and put into writing -acute systolic CHF - relates to STEMI and newly weaker myocardium- -improved - required lasix 40mg x 2, 20mg x 1 - now examines euvolemic and lungs sound dry --> highly doubt needs diuretic at discharge, but emphasized low Na DREW (POA) related to poor forward flow from above -improved after stent, likely lasix helped given acute systolic CHF - Dyslipidemia: Lipitor - prior CVA: antiplatelet therapy stable for home close PCP and cardiology f/u Total Time Spent: Greater than 30 minutes This includes examination of the patient, discharge planning, medication reconciliation, and communication with other providers. Discharge Instructions Please refer to the electronic Patient Visit Report (Discharge Instructions) for additional information. Additional Copies To Mukul Dacosta M.D.; Pineda Maxwell MD
== END 2017-04-08 12:05 | disposition home or self-care (01) | DRG 246 ==
LOC: C.EDB 12:12 → ENRESERV 12:43 → C.MSICU 14:54 → ENRESERV 04-06 13:56 → C.2E 04-06 14:46
PROVIDERS: ADMIT Internal Medicine; ATTEND Family Medicine
PROC: 02C03ZZ Extirpation of Matter from Coronary Artery, One Artery, Percutaneous Approach (ICD-10-PCS; principal; 2017-04-05 12:23)
PROC: 027034Z Dilation of Coronary Artery, One Artery with Drug-eluting Intraluminal Device, Percutaneous Approach (ICD-10-PCS; principal; 2017-04-05 12:23)
PROC: B210YZZ Fluoroscopy of Single Coronary Artery using Other Contrast (ICD-10-PCS; principal; 2017-04-05 12:23)
DX: T82.897A Other specified complication of cardiac prosthetic devices, implants and grafts, initial encounter (principal); I21.3 ST elevation (STEMI) myocardial infarction of unspecified site; I50.21 Acute systolic (congestive) heart failure; N17.9 Acute kidney failure, unspecified; I47.2 Ventricular tachycardia; I25.2 Old myocardial infarction; Z86.73 Personal history of transient ischemic attack (TIA), and cerebral infarction without residual deficits; Z95.5 Presence of coronary angioplasty implant and graft; Z79.02 Long term (current) use of antithrombotics/antiplatelets; Z87.891 Personal history of nicotine dependence; Z79.82 Long term (current) use of aspirin; E78.5 Hyperlipidemia, unspecified; I10 Essential (primary) hypertension; G47.33 Obstructive sleep apnea (adult) (pediatric); Z72.89 Other problems related to lifestyle; E78.00 Pure hypercholesterolemia, unspecified; Y84.0 Cardiac catheterization as the cause of abnormal reaction of the patient, or of later complication, without mention of misadventure at the time of the procedure

== ENCOUNTER → 2017-11-16 | Outpatient (CLI) | payer BC ==
[~2017-11-16] MED LIST changes: -ATOR-26 PO; +BRL90 PO; +LPT/40 PO; +METO-217 PO; -PLV75 PO; +THIA100T27 PO; -THM100 PO
[2017-11-16 15:36] LABS: BASO % 0.5 %; BASO ABS # 0.04 K/uL (0-0.2); EOS % 3.2 %; EOS ABS # 0.24 K/uL (0-0.5); HEMATOCRIT 38.8 % (42-52); HEMOGLOBIN 13.3 g/dL (14.0-18.0); IG# 0.03 K/uL (0.00-0.02); LYMPH % 11.9 %; LYMPH ABS # 0.89 K/uL (1.2-3.4); MEAN CELL VOLUME 95.3 fL (80-100); MEAN CORPUSCULAR HEMOGLOBIN 32.7 pg (25-34); MEAN CORPUSCULAR HGB CONC 34.3 g/dl (32-36); MEAN PLATELET VOLUME 11.2 fL (7.4-10.4); MONO % 10.9 %; MONO ABS # 0.81 K/uL (0.11-0.59); NEUT % 73.1 %; NEUT ABS # 5.45 K/uL (1.4-6.5); PLATELET COUNT 273 K/uL (130-400); RED CELL DISTRIBUTION WIDTH CV 12.7 % (11.5-14.5); RED CELL DISTRIBUTION WIDTH SD 43.9 fL (36.4-46.3); WHITE BLOOD COUNT 7.46 K/uL (4.8-10.8)
--- NOTE | 2017-11-16 15:39 | DIAGNOSTIC IMAGING REPORT ---
CHEST 2 VIEWS ROUTINE CLINICAL HISTORY: Cough. Coronary artery disease. COMPARISON STUDY: Chest radiograph and chest CT November 25, 2015. FINDINGS: Lung volumes are normal. No pneumothorax or pleural effusion is noted. There is no consolidation or evidence for pulmonary edema. Mild cardiomegaly is unchanged. The appearance of the chest is unchanged. Anterior cervical spine fusion is partially imaged. IMPRESSION: No acute cardiopulmonary findings. Electronically signed by: Juan Manrique M.D. 11/16/2017 3:37 PM Dictated Date/Time: 11/16/2017 3:36 PM
[2017-11-16 16:08] LABS: ALBUMIN 3.3 gm/dl (3.4-5.0); ALKALINE PHOSPHATASE 135 U/L (45-117); ALT/SGPT 42 U/L (12-78); AST/SGOT 25 U/L (15-37); BLOOD UREA NITROGEN 17 mg/dl (7-18); CARBON DIOXIDE 27 mmol/L (21-32); GLUCOSE 97 mg/dl (70-99); SODIUM 140 mmol/L (136-145); TOTAL PROTEIN 7.6 gm/dl (6.4-8.2)
== END | disposition home or self-care (01) ==
LOC: C.RAD 15:08
PROVIDERS: ATTEND Family Medicine
DX: R05 Cough (principal); I25.10 Atherosclerotic heart disease of native coronary artery without angina pectoris; I48.91 Unspecified atrial fibrillation; K55.9 Vascular disorder of intestine, unspecified; R10.9 Unspecified abdominal pain

== ENCOUNTER → 2017-11-22 | Outpatient (CLI) | payer BC ==
[~2017-11-22] MED LIST changes: +OPTIRAY 320 IV PRN
--- NOTE | 2017-11-22 15:48 | DIAGNOSTIC IMAGING REPORT ---
CT SCAN OF THE ABDOMEN AND PELVIS WITH IV CONTRAST CLINICAL HISTORY: Abdominal bloating. COMPARISON STUDY: No priors. TECHNIQUE: Following the IV administration of 117 cc of Optiray 320, CT scan of the abdomen and pelvis is performed from the lung bases to the proximal femora. Images are reviewed in the axial, sagittal, and coronal planes. IV contrast was administered without complication. A dose lowering technique was utilized adhering to the principles of ALARA. CT DOSE: 656.82 mGy.cm FINDINGS: Lung bases: The heart is enlarged and without pericardial effusion. The coronary arteries are densely calcified. The lung bases are clear. Liver: The contrast-enhanced liver is normal in size, contour, and attenuation. There is no intrahepatic biliary ductal dilatation. The hepatic veins and portal veins are patent. Gallbladder: Unremarkable. Spleen: Normal in size and attenuation. Pancreas: Unremarkable. Adrenal glands: Unremarkable. Kidneys: The contrast enhanced kidneys demonstrate mild cortical atrophy and are without hydronephrosis. The kidneys enhance symmetrically. A 1.7 cm exophytic lesion arising from the lower pole of the left kidney is seen on image #222. This does not meet CT criteria for a simple cyst. Abdominal vasculature: The abdominal aorta is normal in course and caliber noting moderate atherosclerotic calcification. Bowel: The small bowel and colon are normal in course and caliber. The appendix is well-visualized and normal. Peritoneum: There is no intraperitoneal free air or abdominal ascites. Lymphadenopathy: There is a prominent left external iliac chain lymph node seen on image #327. This measures 1.4 cm in short axis and contains macroscopic fat. Mild surrounding stranding is noted. Additional prominent retroperitoneal and left iliac chain nodes measure up to 0.9 cm in short axis. Pelvic viscera: The prostate gland is enlarged and heterogeneous, measuring 5.8 cm transverse diameter. There is median lobe hypertrophy. The bladder wall is thickened and trabeculated indicating chronic outlet obstruction. There are bilateral fat-containing inguinal hernias, right larger than left. Skeletal structures: There is mild lumbosacral spondylosis. Degenerative change is noted in the sacroiliac joints. No lytic or blastic lesions are seen. IMPRESSION: 1. There is a 1.7 cm exophytic lesion arising from the lower pole of the left kidney. This is pathologically indeterminant and may represent a complex/hemorrhagic cyst. Renal neoplasm is not excluded. Correlation with a contrast-enhanced MRI of the abdomen is recommended for further assessment. 2. Cardiomegaly. 3. There are prominent retroperitoneal and left iliac chain lymph nodes. Minimal stranding is seen around the largest node in the left external iliac chain. This is nonspecific and may be on a reactive basis. Clinical correlation will be required. 4. Prostatomegaly with evidence of chronic bladder outlet obstruction. 5. Additional findings as above. Electronically signed by: Daniel Hernandez M.D. 11/22/2017 3:47 PM Dictated Date/Time: 11/22/2017 3:10 PM
== END | disposition home or self-care (01) ==
LOC: C.CTS 13:06
PROVIDERS: ATTEND Family Medicine
DX: R10.9 Unspecified abdominal pain (principal); R14.0 Abdominal distension (gaseous); K55.059 Acute (reversible) ischemia of intestine, part and extent unspecified; I25.10 Atherosclerotic heart disease of native coronary artery without angina pectoris

== ENCOUNTER → 2017-11-29 | Outpatient (CLI) | payer BC ==
[~2017-11-29] MED LIST changes: +GADAVIST IV PRN; -OPTIRAY 320 IV PRN
--- NOTE | 2017-11-29 12:31 | DIAGNOSTIC IMAGING REPORT ---
ABDOMINAL MRI WITH AND WITHOUT INTRAVENOUS CONTRAST HISTORY: Left renal lesion. Follow-up. ABNORMAL CT OF ABDOMEN TECHNIQUE: Multiplanar multisequence MRI of the abdomen was performed both before and after the intravenous administration of contrast to evaluate the kidneys. COMPARISON STUDY: Abdomen and pelvis CT 11/22/2017. FINDINGS: The visualized lung bases are clear. Normal marrow signal intensity throughout the visualized osseous structures. The liver, gallbladder, spleen, adrenal glands, and pancreas are unremarkable. Mild periportal edema. A few prominent distal periaortic lymph nodes remain stable. The visualized loops of bowel show no wall thickening or obstruction. There is again noted a 1.6 cm exophytic lesion within the lower pole the left kidney. This is heterogeneously T2 hyperintense and T1 hyperintense. However, this does not demonstrate enhancement. Question of a punctate calcification posteriorly within the lesion. Therefore, this is consistent with a hemorrhagic/proteinaceous cyst. No enhancing renal masses. IMPRESSION: 1. The 1.6 cm exophytic lesion within the lower pole of the left kidney is consistent with a hemorrhagic/proteinaceous cyst. No solid enhancing renal masses identified. 2. Stable prominent distal retroperitoneal lymph nodes. Electronically signed by: Obi Parkinson M.D. 11/29/2017 12:29 PM Dictated Date/Time: 11/29/2017 12:17 PM
== END | disposition home or self-care (01) ==
LOC: C.MRI 10:31
PROVIDERS: ATTEND Family Medicine
DX: R10.9 Unspecified abdominal pain (principal)

== ENCOUNTER 2021-04-12 15:27 | Inpatient (IN) ==
--- NOTE | 2021-04-12 15:48 | Emergency Department Note ---
Impression & Plan Acute CVA (cerebrovascular accident) ED Provider Note NAME: CHEYANNE BECERRA AGE: 70 SEX: M : 1950 ARRIVES VIA: Walk-In INFORMANT: Patient, ED PROVIDER(S): Mukul White DO CHIEF COMPLAINT: Facial droop HPI: The patient is a 70-year-old male who presented to emergency department for an evaluation of strokelike symptoms. The patient states "I think I had another stroke". The patient has a history of CVA in the past. He states he does take blood thinners. He states he has been compliant with his usual outpatient med ications. He states he was at a local restaurant/bar last evening and at approximately 6 PM noticed that he was having trouble speaking and he noticed his face had a droop on the right side. He denies having any headache. He said no recent falls. He denies having any nausea or vomiting. He denies having any headache. He has no difficulty ambulating. He presented to the emergency department with a family member. He denies having any recent work-up for stroke. The patient states that he denies having any chest pain or palpitations. He states otherwise he feels that he is at his baseline. ROS: See above HPI for pertinent positives & negatives. A total of 10 systems reviewed and were otherwise negative. PAST MEDICAL HISTORY: See Below PAST SURGICAL HISTORY: See Below FAMILY HISTORY: See Below SOCIAL HISTORY: See Below HOME MEDICATIONS: See Below ALLERGIES: See Below VITALS: See Below PHYSICAL EXAMINATION: GENERAL: Patient is awake alert in no acute distress patient is resting comfortably and showing no signs of anxiety EYES: The conjunctivae are clear. The pupils are round and reactive. EARS, NOSE, MOUTH AND THROAT: The nose is without any evidence of any deformity. NECK: The neck is nontender and supple. RESPIRATORY: Normal respiratory effort is noted there is no evidence of wheezing rhonchi or rales CARDIOVASCULAR: Regular rate and rhythm noted there no murmurs rubs or gallops normal S1 normal S2. GASTROINTESTINAL: The abdomen is soft. Abdomen is nontender. MUSCULOSKELETAL/EXTREMITIES: There is no evidence of gross deformity full range of motion is noted in the hips and shoulders. SKIN: There is no obvious evidence of any rash. There are no petechiae, pallor or cyanosis noted. NEUROLOGIC: Patient is awake alert and oriented x3. Derrick Car Operator strength was symmetric. The patient is able to hold each leg off of the bed for greater than 5 seconds. The patient is able to stand. Patient has a right-sided facial droop with forehead sparing. MEDICAL DECISION MAKING: The patient is a 70-year-old male who presented to the emergency department for an evaluation of strokelike symptoms. The patient had right-sided facial droop with forehead sparing. He has a history of A. fib and takes oral anticoagula tion. The patient's symptoms started greater than 3 hours ago and he was not a candidate for thrombolytics. He does not appear to have signs of a large vessel occlusion. I discussed the patient's laboratory and radiographic studies with him and his family member. The patient has what appears to be a subacute stroke on the CT which does not explain the facial droop but he does have a new finding that could explain the right-sided facial droop. I would be concerned the patient may be experiencing embolic phenomena given his history. He was treated with IV Lopressor in the emergency department. I discussed the patient's laboratory and radiographic studies with the on-call [facility]. They have agreed to evaluate the patient in the emergency department for further management and disposition. Triage Nursing notes reviewed. Prior medical records reviewed Vital Signs: reviewed and remarkable for no significant abnormalities Differential diagnosis: Infection, dehydration, metabolic abnormality, hypo/hyperglycemia, electrolyte disturbance, anemia, hypoxia, cardiac sources, intracerebral event, toxicologic, neurologic, as well as other pathologies. ER treatment provided: See below Diagnostics interpreted by me: ECG: EKG was obtained in the emergency department. My interpretation is atrial fibrillation at 137 bpm. There was no ectopy. Poor R wave progression was noted. This was compared to a tracing from January 242020. Atrial fibrillat ion has replaced sinus rhythm compared to the previous tracing. Cardiac Monitoring: An order was placed for continuous cardiac monitoring. The monitor shows a rate of 76 bpm with atrial fibrillation. Laboratory studies: As stated above and show below. Imaging studies: See below Consultation(s): I discussed this case with Dr. Conklin who is on-call for the [facility] group. Past Med/Surg History Medical History Acute on chronic systolic (congestive) heart failure Aneurysm BRAIN 2008- [facility] /UNSURE OF SIZE- FOLLOWS DR. BAKER Bronchitis Degenerative disc disease Elevated TSH Exposure to COVID-19 virus H/O arterial ischemic stroke residual cognitive impairment. APR 25 2008/ [facility] /PLACED ON BLOOD THINNER Hypertension Lumbar radiculopathy Myocardial Infarction 2016-[facility]- CATH- STENT- FOLLOWS WITH DR. BAKER Nasal septal deviation Osteoarthritis Sleep apnea NO CPAP Tinnitus Transaminitis Surgical History Aspiration into airway PER PATIENT, THIS HAPPENED AFTER E.T TUBE CAME OUT IN RECOVERY, THINKS IT WAS 2005, DOES NOT REMEMBER WHAT PROCEDURE BUT THINKS IT WAS AT [facility]- POOR H ISTORIAN (HX STROKE) H/O hernia repair H/O neck surgery History of cardioversion [facility] 2017 History of colonoscopy History of deviated nasal septum WITH REPAIR History of left cataract surgery Hx of umbilical hernia repair S/P cardiac catheterization ONE @ [facility]/ ONE @ [facility] - 2016 & 2017- [facility]- [place] Family History Mother Diabetes Depression Unknown No problems noted. Father Myocardial infarction Grandfather (Paternal) Myocardial infarction Brother Myocardial infarction Sister Depression Other No family history of adverse response to anesthesia No family history of bleeding disorder Denies family history of Colon cancer Ovarian cancer Prostate cancer Breast cancer Social History Smoking Status: Never smoker Age Started Using Tobacco: 22; Age Quit Using Tobacco: 37; Cigarettes Per Day: 30 YEARS AGO; Second Hand Exposure: No; Hx Alcohol Use: Yes Alcohol type: hard liquor Alcohol Intake Frequency: 2-3 x/Week Hx Substance Use: No Preferred Language: Iranian Communication Ability: Effective Visual Impairment: No Limitations Hearing Ability: Normal Central Supply Supervisor Required: No Beliefs That Will Affect Care: None marital status: Current Living Situation: Spouse current occupational status: retired and disabled Feels Safe at Home: Yes Childhood Exposure to Second-Hand Smoke: Yes Dental Care, Regularly: Yes Physical Activity Frequency: Daily Seatbelt Use: always Sunscreen Use: No Assistive Devices: Glasses Allergies Allergies Allergy/AdvReac Type Severity Reaction Status Date / Time donepezil Allergy Unknown Verified 04/12/21 16:49 duloxetine [From Cymbalta] Allergy Unknown Verified 04/12/21 16:49 Home Meds Home Medications Medication Instructions Recorded Confirmed cholecalciferol (vitamin D3) 25 1,000 unit PO QAM 12/31/17 04/12/21 mcg (1,000 unit) tablet (Vitamin D3) coenzyme Q10 100 mg tablet 100 mg PO QAM 12/31/17 04/12/21 cyanocobalamin (vitamin B-12) 1,000 mcg PO PM 12/31/17 04/12/21 1,000 mcg tablet (Vitamin B-12) garlic 1,000 mg PO PM 12/31/17 04/12/21 lisinopril 5 mg tablet 5 mg PO QAM 12/31/17 04/12/21 nitroglycerin 0.4 mg sublingual 0.4 mg SUBLINGUAL UD PRN 12/31/17 04/12/21 tablet (Nitrostat) thiamine HCl (vitamin B1) 100 mg 100 mg PO BID 12/31/17 04/12/21 tablet vitamin E 100 unit capsule 100 unit PO DAILY 12/31/17 04/12/21 metoprolol succinate 25 mg 25 mg PO QAM #1 tab 12/14/18 04/12/21 tablet,extended release 24 hr omega-3 fatty acids 1,000 mg 1,000 mg PO QAM 01/18/19 04/12/21 capsule (Fish Oil Concentrate) biotin 1 mg tablet 1 mg PO QAM tab 03/14/19 04/12/21 apixaban 5 mg tablet 5 mg PO BID tab 03/12/21 04/12/21 Previous Rx's Medication Instructions Recorded atorvastatin 80 mg tablet 80 mg PO QPM #90 tab 10/03/20 baclofen 10 mg tablet 10 mg PO BID 30 Days #60 tab 11/01/20 modafinil 100 mg tablet 100 mg PO QAM #30 tab 12/02/20 furosemide 20 mg tablet 20 mg PO QAM #30 tab 01/05/21 ticagrelor 90 mg tablet (Brilinta) 90 mg PO BID #60 tab 01/27/21 galantamine 24 mg 24 hr 24 mg PO QAM 30 Days #30 cap 02/24/21 capsule,extended release venlafaxine 150 mg 150 mg PO DAILY #30 cap 02/24/21 capsule,extended release 24 hr levothyroxine 100 mcg tablet 100 mcg PO QAM #30 tab 03/27/21 Results & Data (ED) Vital Signs Vital Signs - 24 hr 04/12/21 15:30 04/12/21 15:44 Temperature 36.6 C Temperature Source Temporal Artery Scan Pulse Rate 76 Pulse Rhythm Regular Pulse Strength Normal Respiratory Rate 20 Respiratory Effort / Characteristics Non-Labored Spontaneous Respiratory Depth Normal Respiratory Pattern Regular Blood Pressure 124/83 Blood Pressure Mean 96 Blood Pressure Position Sitting Pulse Oximetry 95 Oxygen Delivery Method Room Air Room Air Sepsis Recent Fever Within 48 Hours No Sepsis New/Unexplained Change in Mental Status No Sepsis Action Taken by Nursing No Action Required Home Medications Current Medication List: was personally reviewed by me Laboratory Data Attestation: I reviewed the patient's lab results. Result diagrams: 04/12/21 15:46 04/12/21 15:46 Lab Results 04/12/21 04/12/21 04/12/21 Range/Units 15:42 15:46 15:46 WBC 8.82 (4.8-10.8) K/uL RBC 4.74 (4.7-6.1) M/uL Hgb 15.4 (14.0-18.0) g/dL POC Hgb (14.0-18.0) g/dl Hct 45.5 (42-52) % POC Hct (42-52) % MCV 96.0 (80-100) fL MCH 32.5 (25-34) pg MCHC 33.8 (32-36) g/dL RDW Std Deviation 47.1 H (36.4-46.3) fL RDW Coeff of Sonja 13.4 (11.5-14.5) % Plt Count 372 (130-400) K/uL MPV 10.8 H (7.4-10.4) fL Immature Gran % (Auto) 0.3 % Neut % (Auto) 64.9 % Lymph % (Auto) 22.0 % Fallon % (Auto) 8.5 % Eos % (Auto) 3.7 % Baso % (Auto) 0.6 % Neut # (Auto) 5.72 (1.4-6.5) K/uL Lymph # (Auto) 1.94 (1.2-3.4) K/uL Fallon # (Auto) 0.75 H (0.11-0.59) K/uL Eos # (Auto) 0.33 (0-0.5) K/uL Baso # (Auto) 0.05 (0-0.2) K/uL Immature Gran # (Auto) 0.03 H (0.00-0.02) K/uL PT 11.4 (9.0-12.0) Seconds INR 1.1 (0.9-1.1) APTT 28.0 (21.0-31.0) Seconds PTT Ratio 1.1 POC Sodium (135-144) mmol/L Sodium (136-145) mmol/L POC Potassium (3.3-5.0) mmol/L Potassium (3.5-5.1) mmol/L POC Chloride (101-112) mmol/L Chloride (98-107) mmol/L Carbon Dioxide (21-32) mmol/L POC Total CO2 (24-31) mmol/L Anion Gap (3-11) POC Anion Gap (16-25) mmol/L POC BUN (7-18) mg/dl BUN (7-18) mg/dl Creatinine (0.6-1.4) mg/dl POC Creatinine (0.6-1.3) mg/dl Est Cr Clr Drug Dosing ml/min Est GFR ( Amer) ml/min Est GFR (Non-Af Amer) ml/min BUN/Creatinine Ratio (10-20) Glucose (70-99) mg/dl POC Glucose 97 (70-99) mg/dl POC Glucose (other) (70-99) mg/dl Calcium (8.5-10.1) mg/dl POC Ioniz Calcium Robert (1.12-1.32) mmol/l Magnesium (1.8-2.4) mg/dl Total Bilirubin (0.2-1) mg/dl AST (15-37) U/L ALT (12-78) Alkaline Phosphatase (45-117) U/L Troponin I (0-0.045) ng/ml Total Protein (6.4-8.2) gm/dl Albumin (3.4-5.0) gm/dl Globulin (2.5-4.0) gm/dl Albumin/Globulin Ratio (0.9-2) Lyme Disease IgG Ab (Negative) Lyme Disease IgM Ab (Negative) 04/12/21 04/12/21 04/12/21 Range/Units 15:46 15:46 16:00 WBC (4.8-10.8) K/uL RBC (4.7-6.1) M/uL Hgb (14.0-18.0) g/dL POC Hgb 16.0 (14.0-18.0) g/dl Hct (42-52) % POC Hct 47 (42-52) % MCV (80-100) fL MCH (25-34) pg MCHC (32-36) g/dL RDW Std Deviation (36.4-46.3) fL RDW Coeff of Sonja (11.5-14.5) % Plt Count (130-400) K/uL MPV (7.4-10.4) fL Immature Gran % (Auto) % Neut % (Auto) % Lymph % (Auto) % Fallon % (Auto) % Eos % (Auto) % Baso % (Auto) % Neut # (Auto) (1.4-6.5) K/uL Lymph # (Auto) (1.2-3.4) K/uL Fallon # (Auto) (0.11-0.59) K/uL Eos # (Auto) (0-0.5) K/uL Baso # (Auto) (0-0.2) K/uL Immature Gran # (Auto) (0.00-0.02) K/uL PT (9.0-12.0) Seconds INR (0.9-1.1) APTT (21.0-31.0) Seconds PTT Ratio POC Sodium 140 (135-144) mmol/L Sodium 139 (136-145) mmol/L POC Potassium 4.0 (3.3-5.0) mmol/L Potassium 4.0 (3.5-5.1) mmol/L POC Chloride 101 (101-112) mmol/L Chloride 104 (98-107) mmol/L Carbon Dioxide 28 (21-32) mmol/L POC Total CO2 28 (24-31) mmol/L Anion Gap 7.0 (3-11) POC Anion Gap 16.0 (16-25) mmol/L POC BUN 18 (7-18) mg/dl BUN 17 (7-18) mg/dl Creatinine 1.30 (0.6-1.4) mg/dl POC Creatinine 1.2 (0.6-1.3) mg/dl Est Cr Clr Drug Dosing 55.7 ml/min Est GFR ( Amer) 63.6 ml/min Est GFR (Non-Af Amer) 54.9 ml/min BUN/Creatinine Ratio 12.8 (10-20) Glucose 105 H (70-99) mg/dl POC Glucose (70-99) mg/dl POC Glucose (other) 106 H (70-99) mg/dl Calcium 9.8 (8.5-10.1) mg/dl POC Ioniz Calcium Robert 1.23 (1.12-1.32) mmol/l Magnesium 2.2 (1.8-2.4) mg/dl Total Bilirubin 0.8 (0.2-1) mg/dl AST 19 (15-37) U/L ALT 26 (12-78) Alkaline Phosphatase 101 (45-117) U/L Troponin I 0.062 H* (0-0.045) ng/ml Total Protein 8.2 (6.4-8.2) gm/dl Albumin 3.4 (3.4-5.0) gm/dl Globulin 4.8 H (2.5-4.0) gm/dl Albumin/Globulin Ratio 0.7 L (0.9-2) Lyme Disease IgG Ab Positive A (Negative) Lyme Disease IgM Ab Equivocal A (Negative) Imaging Data Radiologist's Impression: Chest X-Ray 04/12/21 15:44 SINGLE VIEW CHEST CLINICAL HISTORY: Strokelike symptoms. FINDINGS: An AP, portable, upright chest radiograph is compared to study dated 01/24/2021. Correlation is made with chest CT dated 12/31/2017. The heart is enlarged. There is mild pulmonary vascular congestion. No airspace consolidation or large pleural effusion is identified. No pneumothorax is seen. The skeletal structures are osteopenic. The bony thorax is grossly intact. Fusion hardware is noted in the lower cervical spine. IMPRESSION: Cardiomegaly with mild pulmonary vascular congestion. ACT 112: Negative or not required by law. Electronically signed by: Daniel Hernandez M.D. 04/12/2021 4:[address] 04/12/21 15:[address] OF THE BRAIN; CT ANGIOGRAM OF THE BRAIN; CT ANGIOGRAM OF THE NECK CLINICAL HISTORY: Strokelike symptoms. COMPARISON STUDY: MRI of the brain dated 06/13/2015. TECHNIQUE: Unenhanced axial CT scan of the brain is performed. Subsequently, following the IV administration of 120 of Optiray 320, CT angiogram of the head and neck was performed from the aortic arch to the vertex. Images are reviewed in the axial, sagittal, and coronal planes. 3-D MIPS images are created and assessed. IV contrast was administered without complication. All measurements were calculated based on NASCET criteria. A dose lowering technique was utilized adhering to the principles of ALARA. CT DOSE: 1202.87 mGy.cm FINDINGS: Brain parenchyma: There is age-related involutional change noting moderate subcortical and periventricular microangiopathic disease. There is loss of g ray-white matter differentiation identified within the high right parietal cortex, typical for subacute ischemia. This is best seen on axial image #23 of the unenhanced examination. A smaller similar-appearing focus of subacute ischemia is seen in the left frontal lobe on the same image. There is no hemorrhage or mass effect. There is no evidence of enhancing mass lesion on the angiogram phase images. The ventricles, sulci, and cisterns are prominent secondary to involutional change. No extra-axial fluid collection is seen. Thoracic aorta: There is atherosclerotic calcification of the thoracic aorta. Visualized portions of the thoracic aorta are normal in caliber. The aortic arch demonstrates standard 3-vessel anatomy. Right carotid arterial system: The right common carotid artery is widely patent, as are the right internal and external carotid arteries. Mild plaque is noted in the carotid bulb. There is tortuosity of the distal right ICA. Left carotid arterial system: The left common carotid artery is widely patent, as are the left internal and external carotid arteries. Mild calcified plaque is noted in the carotid bulb. Vertebral arteries: The vertebral arteries are widely patent bilaterally and codominant in the neck. Subclavian arteries: Widely patent bilaterally. Intracranial vasculature: There is atherosclerotic calcification of the cavernous carotid and vertebral arteries. The internal carotid arteries are patent at the skull base, as are the anterior and middle cerebral arteries bilaterally. There is atherosclerotic plaque and irregularity seen throughout the intracranial right vertebral artery with focal high-grade stenosis seen on image #29. The left vertebral artery and the basilar artery are widely patent. There is mild focal ectasia of the basilar artery which measures up to 6 mm in diameter. The posterior cerebral arteries are patent. The intracranial left vertebral artery is dominant. There is no aneurysm, high-grade stenosis, or focal vessel cut off seen throughout the intracranial circulation. Jugular veins: Patent bilaterally. Dural sinuses: Patent. Lung apices: Partially visualized upper lobe lung parenchyma appears clear. Soft tissues: The visualized pharyngeal soft tissues are normal in appearance noting angiographic phase technique. The oropharyngeal airway appears widely patent. The salivary and thyroid glands are normal in appearance. No cervical lymphadenopathy is seen. Skeletal structures: The skeletal structures are osteopenic. The calvarium appears intact. The cervical spine is maintained noting multilevel spondylosis. Fusion hardware is noted in the lower cervical region. No lytic or blastic lesion is seen. Orbits: The bony orbits are intact. Orbital contents are normal as visualized noting bilateral ocular lens implants. Sinuses and mastoids: There is trace mucosal thickening in the right maxillary antrum. Trace fluid is noted in the left sphenoid sinus. The remaining Paranasal sinuses are clear. The mastoid air cells are well pneumatized. Cerumen is noted in the left external auditory canal. IMPRESSION: 1. There is loss of peter-white matter differentiation identified within the high right parietal lobe cortex, typical in appearance for subacute ischemia. 2. A smaller focus of subacute ischemia is seen in the left frontal lobe cortex. These are both new from the 2016 MRI and bilateral findings suggests an embolic phenomenon. 3. There is no hemorrhage or mass effect. 4. 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 5. Otherwise unremarkable CT angiogram of the brain. 6. Unremarkable CT angiogram of the neck. ACT 112: Negative or not required by law. Electronically signed by: Daniel Hernandez M.D. 04/12/2021 5:10 PM Head CTA 04/12/21 15:[address] OF THE BRAIN; CT ANGIOGRAM OF THE BRAIN; CT ANGIOGRAM OF THE NECK CLINICAL HISTORY: Strokelike symptoms. COMPARISON STUDY: MRI of the brain dated 06/13/2015. TECHNIQUE: Unenhanced axial CT scan of the brain is performed. Subsequently, following the IV administration of 120 of Optiray 320, CT angiogram of the head and neck was performed from the aortic arch to the vertex. Images are reviewed in the axial, sagittal, and coronal planes. 3-D MIPS images are created and assessed. IV contrast was administered without complication. All measurements were calculated based on NASCET criteria. A dose lowering technique was utilized adhering to the principles of ALARA. CT DOSE: 1202.87 mGy.cm FINDINGS: Brain parenchyma: There is age-related involutional change noting moderate subcortical and periventricular microangiopathic disease. There is loss of peter-white matter differentiation identified within the high right parietal cortex, typical for subacute ischemia. This is best seen on axial image #23 of the unenhanced examination. A smaller similar-appearing focus of subacute ischemia is seen in the left frontal lobe on the same image. There is no hemorrhage or mass effect. There is no evidence of enhancing mass lesion on the angiogram phase images. The ventricles, sulci, and cisterns are prominent secondary to involutional change. No extra-axial fluid collection is seen. Thoracic aorta: There is atherosclerotic calcification of the thoracic aorta. Visualized portions of the thoracic aorta are normal in caliber. The aortic arch demonstrates standard 3-vessel anatomy. Right carotid arterial system: The right common carotid artery is widely patent, as are the right internal and external carotid arteries. Mild plaque is noted in the carotid bulb. There is tortuosity of the distal right ICA. Left carotid arterial system: The left common carotid artery is widely patent, as are the left internal and external carotid arteries. Mild calcified plaque is noted in the carotid bulb. Vertebral arteries: The vertebral arteries are widely patent bilaterally and codominant in the neck. Subclavian arteries: Widely patent bilaterally. Intracranial vasculature: There is atherosclerotic calcification of the cavernous carotid and vertebral arteries. The internal carotid arteries are patent at the skull base, as are the anterior and middle cerebral arteries bilaterally. There is atherosclerotic plaque and irregularity seen throughout the intracranial right vertebral artery with focal high-grade stenosis seen on image #29. The left vertebral artery and the basilar artery are widely patent. There is mild focal ectasia of the basilar artery which measures up to 6 mm in diameter. The posterior cerebral arteries are patent. The intracranial left vertebral artery is dominant. There is no aneurysm, high-grade stenosis, or focal vessel cut off seen throughout the intracranial circulation. Jugular veins: Patent bilaterally. Dural sinuses: Patent. Lung apices: Partially visualized upper lobe lung parenchyma appears clear. Soft tissues: The visualized pharyngeal soft tissues are normal in appearance noting angiographic phase technique. The oropharyngeal airway appears widely patent. The salivary and thyroid glands are normal in appearance. No cervical lymphadenopathy is seen. Skeletal structures: The skeletal structures are osteopenic. The calvarium appears intact. The cervical spine is maintained noting multilevel spondylosis. Fusion hardware is noted in the lower cervical region. No lytic or blastic lesion is seen. Orbits: The bony orbits are intact. Orbital contents are normal as visualized noting bilateral ocular lens implants. Sinuses and mastoids: There is trace mucosal thickening in the right maxillary antrum. Trace fluid is noted in the left sphenoid sinus. The remaining Paranasal sinuses are clear. The mastoid air cells are well pneumatized. Cerumen is noted in the left external auditory canal. IMPRESSION: 1. There is loss of peter-white matter differentiation identified within the high right parietal lobe cortex, typical in appearance for subacute ischemia. 2. A smaller focus of subacute ischemia is seen in the left frontal lobe cortex. These are both new from the 2016 MRI and bilateral findings suggests an embolic phenomenon. 3. There is no hemorrhage or mass effect. 4. 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 5. Otherwise unremarkable CT angiogram of the brain. 6. Unremarkable CT angiogram of the neck. ACT 112: Negative or not required by law. Electronically signed by: Daniel Hernandez M.D. 04/12/2021 5:10 PM Neck CTA 04/12/21 15:[address] OF THE BRAIN; CT ANGIOGRAM OF THE BRAIN; CT ANGIOGRAM OF THE NECK CLINICAL HISTORY: Strokelike symptoms. COMPARISON STUDY: MRI of the brain dated 06/13/2015. TECHNIQUE: Unenhanced axial CT scan of the brain is performed. Subsequently, following the IV administration of 120 of Optiray 320, CT angiogram of the head and neck was performed from the aortic arch to the vertex. Images are reviewed in the axial, sagittal, and coronal planes. 3-D MIPS images are created and assessed. IV contrast was administered without complication. All measurements were calculated based on NASCET criteria. A dose lowering technique was utilized adhering to the principles of ALARA. CT DOSE: 1202.87 mGy.cm FINDINGS: Brain parenchyma: There is age-related involutional change noting moderate subcortical and periventricular microangiopathic disease. There is loss of peter-white matter differentiation identified within the high right parietal cortex, typical for subacute ischemia. This is best seen on axial image #23 of the unenhanced examination. A smaller similar-appearing focus of subacute ischemia is seen in the left frontal lobe on the same image. There is no hemorrhage or mass effect. There is no evidence of enhancing mass lesion on the angiogram phase images. The ventricles, sulci, and cisterns are prominent secondary to involutional change. No extra-axial fluid collection is seen. Thoracic aorta: There is atherosclerotic calcification of the thoracic aorta. Visualized portions of the thoracic aorta are normal in caliber. The aortic arch demonstrates standard 3-vessel anatomy. Right carotid arterial system: The right common carotid artery is widely patent, as are the right internal and external carotid arteries. Mild plaque is noted in the carotid bulb. There is tortuosity of the distal right ICA. Left carotid arterial system: The left common carotid artery is widely patent, as are the left internal and external carotid arteries. Mild calcified plaque is noted in the carotid bulb. Vertebral arteries: The vertebral arteries are widely patent bilaterally and codominant in the neck. Subclavian arteries: Widely patent bilaterally. Intracranial vasculature: There is atherosclerotic calcification of the cavernous carotid and vertebral arteries. The internal carotid arteries are patent at the skull base, as are the anterior and middle cerebral arteries bilaterally. There is atherosclerotic plaque and irregularity seen throughout the intracranial right vertebral artery with focal high-grade stenosis seen on image #29. The left vertebral artery and the basilar artery are widely patent. There is mild focal ectasia of the basilar artery which measures up to 6 mm in diameter. The posterior cerebral arteries are patent. The intracranial left vertebral artery is dominant. There is no aneurysm, high-grade stenosis, or focal vessel cut off seen throughout the intracranial circulation. Jugular veins: Patent bilaterally. Dural sinuses: Patent. Lung apices: Partially visualized upper lobe lung parenchyma appears clear. Soft tissues: The visualized pharyngeal soft tissues are normal in appearance noting angiographic phase technique. The oropharyngeal airway appears widely patent. The salivary and thyroid glands are normal in appearance. No cervical lymphadenopathy is seen. Skeletal structures: The skeletal structures are osteopenic. The calvarium appears intact. The cervical spine is maintained noting multilevel spondylosis. Fusion hardware is noted in the lower cervical region. No lytic or blastic lesion is seen. Orbits: The bony orbits are intact. Orbital contents are normal as visualized noting bilateral ocular lens implants. Sinuses and mastoids: There is trace mucosal thickening in the right maxillary antrum. Trace fluid is noted in the left sphenoid sinus. The remaining Paranasal sinuses are clear. The mastoid air cells are well pneumatized. Cerumen is noted in the left external auditory canal. IMPRESSION: 1. There is loss of peter-white matter differentiation identified within the high right parietal lobe cortex, typical in appearance for subacute ischemia. 2. A smaller focus of subacute ischemia is seen in the left frontal lobe cortex. These are both new from the 2016 MRI and bilateral findings suggests an embolic phenomenon. 3. There is no hemorrhage or mass effect. 4. 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 5. Otherwise unremarkable CT angiogram of the brain. 6. Unremarkable CT angiogram of the neck. ACT 112: Negative or not required by law. Electronically signed by: Daniel Hernandez M.D. 04/12/2021 5:10 PM Discharge Plan Visit Data Chief Complaint: Stroke/CVA Symptoms Stated Complaint: SLURRED SPEECH/FACIAL DROOPING R SIDE ED Provider: Mukul White Discharge Problem: Acute CVA (cerebrovascular accident) Patient Disposition: Being Evaluated by Hospitalist Forms Stand Alone Forms: My [facility] Prescriptions Prescriptions: No Action baclofen 10 mg tablet 10 mg PO BID 30 Days Qty: 60 RF: 5 modafinil 100 mg tablet 100 mg PO QAM Qty: 30 RF: 5 furosemide 20 mg tablet 20 mg PO QAM Qty: 30 RF: 11 Brilinta 90 mg tablet 90 mg PO BID Qty: 60 RF: 11 galantamine 24 mg capsule,ext rel. pellets 24 hr 24 mg PO QAM 30 Days Qty: 30 RF: 2 venlafaxine 150 mg capsule,extended release 24hr 150 mg PO DAILY Qty: 30 RF: 5 levothyroxine 100 mcg tablet 100 mcg PO QAM Qty: 30 RF: 0 metoprolol succinate 25 mg tablet extended release 24 hr 25 mg PO QAM Qty: 1 RF: 0 apixaban 5 mg tablet 5 mg PO BID RF: 0 atorvastatin 80 mg tablet 80 mg PO QPM Qty: 90 RF: 3 omega-3 fatty acids [Fish Oil Concentrate] 1,000 mg Capsule 1,000 mg PO QAM RF: 0 vitamin E 100 unit Capsule 100 unit PO DAILY RF: 0 cyanocobalamin (vitamin B-12) [Vitamin B-12] 1,000 mcg Tablet 1,000 mcg PO PM RF: 0 thiamine HCl (vitamin B1) 100 mg Tablet 100 mg PO BID RF: 0 nitroglycerin [Nitrostat] 0.4 mg Tablet, Sublingual 0.4 mg Sublingual UD PRN (Reason: Chest Pain) RF: 0 lisinopril 5 mg Tablet 5 mg PO QAM RF: 0 garlic Tablet 1,000 mg PO PM RF: 0 cholecalciferol (vitamin D3) [Vitamin D3] 1,000 unit Tablet 1,000 unit PO QAM RF: 0 coenzyme Q10 100 mg Tablet 100 mg PO QAM RF: 0 biotin 1 mg tablet 1 mg PO QAM RF: 0 Referrals Referrals: Thi Montaño MD [Primary Care Provider] -
[2021-04-12 16:01] LABS: Basophils # (auto) 0.05 K/uL (0-0.2); Basophils % (auto) 0.6 %; Eosinophils # (auto) 0.33 K/uL (0-0.5); Eosinophils % (auto) 3.7 %; Hematocrit (blood only) 45.5 % (42-52); Hemoglobin 15.4 g/dL (14.0-18.0); Immature Granulocytes # (auto) 0.03 K/uL (0.00-0.02); Immature Granulocytes % (auto) 0.3 %; Lymphocytes # (auto) 1.94 K/uL (1.2-3.4); Mean Corpuscular Hemoglobin 32.5 pg (25-34); Mean Corpuscular Hgb Conc 33.8 g/dL (32-36); Mean Platelet Volume 10.8 fL (7.4-10.4); Monocytes # (auto) 0.75 K/uL (0.11-0.59); Monocytes % (auto) 8.5 %; Neutrophils # (auto) 5.72 K/uL (1.4-6.5); Neutrophils % (auto) 64.9 %; Platelet Count 372 K/uL (130-400); RDW Coefficient of Variation 13.4 % (11.5-14.5); RDW Standard Deviation 47.1 fL (36.4-46.3); Red Blood Count 4.74 M/uL (4.7-6.1); White Blood Count 8.82 K/uL (4.8-10.8)
[2021-04-12 16:13] LABS: INR 1.1 (0.9-1.1); Partial Thromboplastin Ratio 1.1; Prothrombin Time 11.4 Seconds (9.0-12.0)
[2021-04-12 16:14] LABS: iSTAT Creatinine 1.2 mg/dl (0.6-1.3); iSTAT Ionized Calcium 1.23 mmol/l (1.12-1.32)
--- NOTE | 2021-04-12 16:16 | XRay Report ---
SINGLE VIEW CHEST CLINICAL HISTORY: Strokelike symptoms. FINDINGS: An AP, portable, upright chest radiograph is compared to study dated 01/24/2021. Correlation is made with chest CT dated 12/31/2017. The heart is enlarged. There is mild pulmonary vascular conges tion. No airspace consolidation or large pleural effusion is identified. No pneumothorax is seen. The skeletal structures are osteopenic. The bony thorax is grossly intact. Fusion hardware is noted in t he lower cervical spine. IMPRESSION: Cardiomegaly with mild pulmonary vascular congestion. ACT 112: Negative or not required by law. Electronically signed by: Daniel Hernandez M.D. 04/12/2021 4:15 PM
[2021-04-12 16:25] LABS: Albumin Level 3.4 gm/dl (3.4-5.0); BUN Creatinine Ratio 12.8 (10-20); Calcium 9.8 mg/dl (8.5-10.1); Creatinine Clr Calc Pharmacy 55.7 ml/min; Est GFR (African American) 63.6 ml/min; Est GFR (Non-African American) 54.9 ml/min; Magnesium 2.2 mg/dl (1.8-2.4)
[2021-04-12 16:33] LABS: Albumin Globulin Ratio 0.7 (0.9-2); Bilirubin,Total 0.8 mg/dl (0.2-1); Globulin 4.8 gm/dl (2.5-4.0); Total Protein 8.2 gm/dl (6.4-8.2); Troponin I 0.062 ng/ml (0-0.045)
[2021-04-12 16:58] LABS: Lyme Ab IgG w/WB Rflx Positive (Negative); Lyme Ab IgM w/WB Rflx Equivocal (Negative)
--- NOTE | 2021-04-12 17:11 | CT Scan Report ---
UNENHANCED CT OF THE BRAIN; CT ANGIOGRAM OF THE BRAIN; CT ANGIOGRAM OF THE NECK CLINICAL HISTORY: Strokelike symptoms. COMPARISON STUDY: MRI of the brain dated 06/13/2015. TECHNIQUE: Unenhanced axial CT scan of the brain is performed. Subsequently, following the IV adminis tration of 120 of Optiray 320, CT angiogram of the head and neck was performed from the aortic arch t o the vertex. Images are reviewed in the axial, sagittal, and coronal planes. 3-D MIPS images are cre ated and assessed. IV contrast was administered without complication. All measurements were calculate d based on NASCET criteria. A dose lowering technique was utilized adhering to the principles of ALA RA. CT DOSE: 1202.87 mGy.cm FINDINGS: Brain parenchyma: There is age-related involutional change noting moderate subcortical and periventri cular microangiopathic disease. There is loss of peter-white matter differentiation identified within the high right parietal cortex, typical for subacute ischemia. This is best seen on axial image #23 of the unenhanced examination. A smaller similar-appearing focus of subacute ischemia is seen in the left frontal lobe on the same image. There is no hemorrhage or mass effect. There is no evidence of e nhancing mass lesion on the angiogram phase images. The ventricles, sulci, and cisterns are prominent secondary to involutional change. No extra-axial fluid collection is seen. Thoracic aorta: There is atherosclerotic calcification of the thoracic aorta. Visualized portions of the thoracic aorta are normal in caliber. The aortic arch demonstrates standard 3-vessel anatomy. Right carotid arterial system: The right common carotid artery is widely patent, as are the right int ernal and external carotid arteries. Mild plaque is noted in the carotid bulb. There is tortuosity of the distal right ICA. Left carotid arterial system: The left common carotid artery is widely patent, as are the left internet marketing assistant al and external carotid arteries. Mild calcified plaque is noted in the carotid bulb. Vertebral arteries: The vertebral arteries are widely patent bilaterally and codominant in the neck. Subclavian arteries: Widely patent bilaterally. Intracranial vasculature: There is atherosclerotic calcification of the cavernous carotid and vertebr al arteries. The internal carotid arteries are patent at the skull base, as are the anterior and midd le cerebral arteries bilaterally. There is atherosclerotic plaque and irregularity seen throughout th e intracranial right vertebral artery with focal high-grade stenosis seen on image #29. The left vert ebral artery and the basilar artery are widely patent. There is mild focal ectasia of the basilar art colin which measures up to 6 mm in diameter. The posterior cerebral arteries are patent. The intracrani al left vertebral artery is dominant. There is no aneurysm, high-grade stenosis, or focal vessel cut off seen throughout the intracranial circulation. Jugular veins: Patent bilaterally. Dural sinuses: Patent. Lung apices: Partially visualized upper lobe lung parenchyma appears clear. Soft tissues: The visualized pharyngeal soft tissues are normal in appearance noting angiographic pha se technique. The oropharyngeal airway appears widely patent. The salivary and thyroid glands are nor mal in appearance. No cervical lymphadenopathy is seen. Skeletal structures: The skeletal structures are osteopenic. The calvarium appears intact. The cervic al spine is maintained noting multilevel spondylosis. Fusion hardware is noted in the lower cervical region. No lytic or blastic lesion is seen. Orbits: The bony orbits are intact. Orbital contents are normal as visualized noting bilateral ocular lens implants. Sinuses and mastoids: There is trace mucosal thickening in the right maxillary antrum. Trace fluid is noted in the left sphenoid sinus. The remaining Paranasal sinuses are clear. The mastoid air cells a re well pneumatized. Cerumen is noted in the left external auditory canal. IMPRESSION: 1. There is loss of peter-white matter differentiation identified within the high right parietal lobe cortex, typical in appearance for subacute ischemia. 2. A smaller focus of subacute ischemia is seen in the left frontal lobe cortex. These are both new f rom the 2016 MRI and bilateral findings suggests an embolic phenomenon. 3. There is no hemorrhage or mass effect. 4. 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 5. Otherwise unremarkable CT angiogram of the brain. 6. Unremarkable CT angiogram of the neck. ACT 112: Negative or not required by law. Electronically signed by: Daniel Hernandez M.D. 04/12/2021 5:10 PM
[2021-04-12] MEDS ORDERED: METOPROLOL TARTRATE 1 MG/ML VIAL IV STA (17:50)
--- NOTE | 2021-04-12 18:08 | History & Physical Report ---
Date of Service April 12, 2021 Assessment & Plan (1) Acute CVA (cerebrovascular accident): Plan: Suspect cardioembolic - ?due to recently holding Eliquis +/- missed doses. MRI brain without IV contrast TTE Lipid panel and HbA1C with AM labs Start heparin IV standard drip without bolus for atrial fibrillation as most likely cause of his stroke Holding atorvastatin while NPO NPO (right facial droop) - LR @ 80ml/hr overnight, SLT consult PT/OT evals Consult neurology - no coverage on Wednesday (can contact [place] [facility] if urgent) but will see on Wednesday (2) Atrial fibrillation: Plan: Appears to be paroxysmal given prior EKGs in January and May in NSR Prior amiodarone induced liver transaminitis noted; discontinued Mar 2020) Currently will aim for rate control using metoprolol 5mg IV Q4H RYLIE with hold parameters, additional 5mg for HR > 140 Anticoagulation with heparin standard IV drip without a bolus (3) CAD (coronary artery disease): Plan: No current chest pain or shortness of breath to suggest ACS. Elevated troponin on admission suggestive of demand ischemia. LMI, CHULA x2 LCX; staged LAD CHULA x2, May 2015; AMI, occluded stents, overlapping CHULA, March 2017 Hold Brilinta, atorvastatin while NPO (4) Hypertension: Plan: Holding anti-hypertensives to allow permissive hypertension with exception of metoprolol for rate control as above (5) Hypothyroidism: Plan: Appears to be overtreated and recently decreased last month from 112 to 100 mcg PO daily due to undetectable TSH. Repeat TSH improving but still appears to be overtreated. Recommend reducing to 75mcg PO daily once able to take oral medications. (6) Mild cognitive impairment: Plan: Holding galantamine while NPO (7) Chronic systolic heart failure: Plan: Monitor for worsening respiratory status on IV fluids as above and holding furosemide to allow for permissive hypertension (8) Moderate obstructive sleep apnea: Plan: Notably history of this however not on CPAP @ home Plan: VTE Prophylaxis - heparin IV drip as above Diet - NPO (failed dysphagia screen due to facial droop) Disposition - admit to med/tele Admission and Anticipated Discharge Date Admission Date: April 12, 2021 History of Present Illness Chief Complaint: Right facial droop Primary Care Provider: Thi Montaño MD Sharath Delgado is a 70 year old male who presents to the ER with slurring of speech and right facial droop. He was reportedly our at a bar last night around 6:30pm and noticed the slurring of speech and facial droop at that time. He reports previously having a stroke effecting which was a specific nominal dysphasia which subsequently resolved. He denies any weakness or change in sensation in his extremities. No change in hearing or vision. He suspected he had a stroke but only came to the hospital today on the insistence of his son when he realized today. The patient reports no change in his symptoms since last night. His son feels his dad takes his medications routinely although the patient admits to missing his medications approximately once a week. He was also off both Brilinta and Eliquis in February for 5-7 days for a dental procedure. He is unsure whether he took his usual medications this morning or last night. In the ER CT head was concerning for subacute ischemia in right parietal cortex and small focus in the left frontal lobe, with focal high grade stenosis in right vertebral artery. He was referred to medicine for admission and ongoing management of stroke like symptoms. Allergies Allergy/AdvReac Type Severity Reaction Status Date / Time donepezil Allergy Unknown Verified 04/12/21 16:49 duloxetine [From Cymbalta] Allergy Unknown Verified 04/12/21 16:49 Home Medications Medication Instructions Recorded Confirmed Type cholecalciferol (vitamin D3) 25 1,000 unit PO QAM 12/31/17 04/12/21 History mcg (1,000 unit) tablet (Vitamin D3) coenzyme Q10 100 mg tablet 100 mg PO QAM 12/31/17 04/12/21 History cyanocobalamin (vitamin B-12) 1,000 mcg PO PM 12/31/17 04/12/21 History 1,000 mcg tablet (Vitamin B-12) garlic 1,000 mg PO PM 12/31/17 04/12/21 History lisinopril 5 mg tablet 5 mg PO QAM 12/31/17 04/12/21 History nitroglycerin 0.4 mg sublingual 0.4 mg SUBLINGUAL UD PRN 12/31/17 04/12/21 History tablet (Nitrostat) thiamine HCl (vitamin B1) 100 mg 100 mg PO BID 12/31/17 04/12/21 History tablet vitamin E 100 unit capsule 100 unit PO DAILY 12/31/17 04/12/21 History metoprolol succinate 25 mg 25 mg PO QAM #1 tab 12/14/18 04/12/21 History tablet,extended release 24 hr omega-3 fatty acids 1,000 mg 1,000 mg PO QAM 01/18/19 04/12/21 History capsule (Fish Oil Concentrate) biotin 1 mg tablet 1 mg PO QAM tab 03/14/19 04/12/21 History atorvastatin 80 mg tablet 80 mg PO QPM #90 tab 10/03/20 04/12/21 Rx baclofen 10 mg tablet 10 mg PO BID 30 Days #60 tab 11/01/20 04/12/21 Rx modafinil 100 mg tablet 100 mg PO QAM #30 tab 12/02/20 04/12/21 Rx furosemide 20 mg tablet 20 mg PO QAM #30 tab 01/05/21 04/12/21 Rx ticagrelor 90 mg tablet (Brilinta) 90 mg PO BID #60 tab 01/27/21 04/12/21 Rx galantamine 24 mg 24 hr 24 mg PO QAM 30 Days #30 cap 02/24/21 04/12/21 Rx capsule,extended release venlafaxine 150 mg 150 mg PO DAILY #30 cap 02/24/21 04/12/21 Rx capsule,extended release 24 hr apixaban 5 mg tablet 5 mg PO BID tab 03/12/21 04/12/21 History levothyroxine 100 mcg tablet 100 mcg PO QAM #30 tab 03/27/21 04/12/21 Rx Past Med/Surg History Medical History Acute on chronic systolic (congestive) heart failure Aneurysm BRAIN 2007- [facility] /UNSURE OF SIZE- FOLLOWS DR. BAKER Bronchitis Degenerative disc disease Elevated TSH Exposure to COVID-19 virus H/O arterial ischemic stroke residual cognitive impairment. APR 25 2008/ [facility] /PLACED ON BLOOD THINNER Hypertension Lumbar radiculopathy Myocardial Infarction 2015-[facility]- CATH- STENT- FOLLOWS WITH DR. BAKER Nasal septal deviation Osteoarthritis Sleep apnea NO CPAP Tinnitus Transaminitis Surgical History Aspiration into airway PER PATIENT, THIS HAPPENED AFTER E.T TUBE CAME OUT IN RECOVERY, THINKS IT WAS 2005, DOES NOT REMEMBER WHAT PROCEDURE BUT THINKS IT WAS AT [facility]- POOR H ISTORIAN (HX STROKE) H/O hernia repair H/O neck surgery History of cardioversion [facility] 2018 History of colonoscopy History of deviated nasal septum WITH REPAIR History of left cataract surgery Hx of umbilical hernia repair S/P cardiac catheterization ONE @ [facility]/ ONE @ [facility] - 2016 & 2017- [place]- FROM [place] Family History Mother Diabetes Depression Unknown No problems noted. Father Myocardial infarction Grandfather (Paternal) Myocardial infarction Brother Myocardial infarction Sister Depression Other No family history of adverse response to anesthesia No family history of bleeding disorder Denies family history of Colon cancer Ovarian cancer Prostate cancer Breast cancer Social History Smoking Status: Never smoker Age Started Using Tobacco: 22; Age Quit Using Tobacco: 37; Cigarettes Per Day: 30 YEARS AGO; Second Hand Exposure: No; Do You Dip or Chew Tobacco: No; Tobacco Cessation Education Requested by Patient: No Hx Alcohol Use: Yes Alcohol type: hard liquor Alcohol Intake Frequency: 2-3 x/Week Hx Substance Use: No Preferred Language: Uzbek Communication Ability: Effective Visual Impairment: No Limitations Hearing Ability: Normal Engineering Instructor Required: No Beliefs That Will Affect Care: None marital status: Current Living Situation: Spouse current occupational status: retired and disabled Other Information That Helps Us Care for You: No Feels Safe at Home: Yes Safety Concerns: Feels Safe At This Time Childhood Exposure to Second-Hand Smoke: Yes Dental Care, Regularly: Yes Physical Activity Frequency: Daily Seatbelt Use: always Sunscreen Use: No Assistive Devices: Glasses Review of Systems Review of Systems: All systems reviewed & are unremarkable except as noted in HPI & below Physical Exam Constitutional: WD/WN, vitals as above Eyes: PERRL, conjunctivae normal, anicteric sclerae EOM intact bilaterally (no diplopia) ENMT: external ear and nose normal, oropharynx normal Neck: trachea midline, no thyromegaly Respiratory: normal respiratory effort, lungs clear to auscultation Cardiovascular: Rate/Rhythm: + tachycardic and + irregularly irregular Heart Sounds: no murmur Extremities: normal capillary refill and + pedal edema (trace ankle); no calf tenderness Gastrointestinal (Abdomen): normal bowel sounds, soft, nontender, no hepatosplenomegaly Musculoskeletal: no cyanosis or clubbing, extremities motor strength 5/5 Skin: no rashes, warm and dry Neurologic: moves all extremities and awake; no focal motor deficits (no lateralizing extremity weakness) and not confused Speech / Cognition: + abnormal speech (occasional slurred words); no receptive aphasia Motor/Sensory: no tremor, no pronator drift and no sensory deficit Cranial Nerves: PERRL, EOM intact bilaterally, tongue midline, able to rotate head bilaterally, able to elevate shoulders bilaterally, no nystagmus and symmetric palate elevation; + abnormal facial strength (right facial droop with forehead sparing) Coordination: normal [id number] test Psychiatric: A+Ox3, euthymic affect Genitourinary: no CVA tenderness Results & Data Results & Data ([facility]) Vital Signs (Past 12 Hours) Vital Signs Temp Pulse Resp BP Pulse Ox 04/12/21 15:30 36.6 C 76 20 124/83 95 Laboratory Results Abnormal lab results 04/12/21 04/12/21 04/12/21 Range/Units 15:46 15:46 15:46 RBC (4.7-6.1) M/uL RDW Std Deviation 47.1 H (36.4-46.3) fL MPV 10.8 H (7.4-10.4) fL Jenkins # (Auto) 0.75 H (0.11-0.59) K/uL Immature Gran # (Auto) 0.03 H (0.00-0.02) K/uL INR (0.9-1.1) Glucose 105 H (70-99) mg/dl POC Glucose (other) (70-99) mg/dl Troponin I 0.062 H* (0-0.045) ng/ml Globulin 4.8 H (2.5-4.0) gm/dl Albumin/Globulin Ratio 0.7 L (0.9-2) TSH 0.010 L (0.300-4.500) uIu/ml Lyme Disease IgG Ab Positive A (Negative) Lyme Disease IgM Ab Equivocal A (Negative) 04/12/21 04/12/21 04/12/21 Range/Units 16:00 23:28 23:28 RBC 4.38 L (4.7-6.1) M/uL RDW Std Deviation 47.5 H (36.4-46.3) fL MPV 10.7 H (7.4-10.4) fL Jenkins # (Auto) 0.85 H (0.11-0.59) K/uL Immature Gran # (Auto) (0.00-0.02) K/uL INR 1.2 H (0.9-1.1) Glucose (70-99) mg/dl POC Glucose (other) 106 H (70-99) mg/dl Troponin I (0-0.045) ng/ml Globulin (2.5-4.0) gm/dl Albumin/Globulin Ratio (0.9-2) TSH (0.300-4.500) uIu/ml Lyme Disease IgG Ab (Negative) Lyme Disease IgM Ab (Negative) 04/13/21 Range/Units 05:47 RBC 4.50 L (4.7-6.1) M/uL RDW Std Deviation 47.4 H (36.4-46.3) fL MPV 10.7 H (7.4-10.4) fL Jenkins # (Auto) 0.75 H (0.11-0.59) K/uL Immature Gran # (Auto) 0.03 H (0.00-0.02) K/uL INR (0.9-1.1) Glucose (70-99) mg/dl POC Glucose (other) (70-99) mg/dl Troponin I (0-0.045) ng/ml Globulin (2.5-4.0) gm/dl Albumin/Globulin Ratio (0.9-2) TSH (0.300-4.500) uIu/ml Lyme Disease IgG Ab (Negative) Lyme Disease IgM Ab (Negative) Diagnostic Findings SINGLE VIEW CHEST CLINICAL HISTORY: Strokelike symptoms. FINDINGS: An AP, portable, upright chest radiograph is compared to study dated 01/24/2021. Correlation is made with chest CT dated 12/31/2017. The heart is enlarged. There is mild pulmonary vascular congestion. No airspace consolidation or large pleural effusion is identified. No pneumothorax is seen. The skeletal structures are osteopenic. The bony thorax is grossly intact. Fusion hardware is noted in the lower cervical spine. IMPRESSION: Cardiomegaly with mild pulmonary vascular congestion. UNENHANCED CT OF THE BRAIN; CT ANGIOGRAM OF THE BRAIN; CT ANGIOGRAM OF THE NECK CLINICAL HISTORY: Strokelike symptoms. COMPARISON STUDY: MRI of the brain dated 06/13/2015. TECHNIQUE: Unenhanced axial CT scan of the brain is performed. Subsequently, following the IV administration of 120 of Optiray 320, CT angiogram of the head and neck was performed from the aortic arch to the vertex. Images are reviewed in the axial, sagittal, and coronal planes. 3-D MIPS images are created and assessed. IV contrast was administered without complication. All measurements were calculated based on NASCET criteria. A dose lowering technique was utilized adhering to the principles of ALARA. CT DOSE: 1202.87 mGy.cm FINDINGS: Brain parenchyma: There is age-related involutional change noting moderate subcortical and periventricular microangiopathic disease. There is loss of peter-white matter differentiation identified within the high right parietal cortex, typical for subacute ischemia. This is best seen on axial image #23 of the unenhanced examination. A smaller similar-appearing focus of subacute ischemia is seen in the left frontal lobe on the same image. There is no hemorrhage or mass effect. There is no evidence of enhancing mass lesion on the angiogram phase images. The ventricles, sulci, and cisterns are prominent secondary to involutional change. No extra-axial fluid collection is seen. Thoracic aorta: There is atherosclerotic calcification of the thoracic aorta. Visualized portions of the thoracic aorta are normal in caliber. The aortic arch demonstrates standard 3-vessel anatomy. Right carotid arterial system: The right common carotid artery is widely patent, as are the right internal and external carotid arteries. Mild plaque is noted in the carotid bulb. There is tortuosity of the distal right ICA. Left carotid arterial system: The left common carotid artery is widely patent, as are the left internal and external carotid arteries. Mild calcified plaque is noted in the carotid bulb. Vertebral arteries: The vertebral arteries are widely patent bilaterally and codominant in the neck. Subclavian arteries: Widely patent bilaterally. Intracranial vasculature: There is atherosclerotic calcification of the cavernous carotid and vertebral arteries. The internal carotid arteries are patent at the skull base, as are the anterior and middle cerebral arteries bilaterally. There is atherosclerotic plaque and irregularity seen throughout the intracranial right vertebral artery with focal high-grade stenosis seen on image #29. The left vertebral artery and the basilar artery are widely patent. There is mild focal ectasia of the basilar artery which measures up to 6 mm in diameter. The posterior cerebral arteries are patent. The intracranial left vertebral artery is dominant. There is no aneurysm, high-grade stenosis, or focal vessel cut off seen throughout the intracranial circulation. Jugular veins: Patent bilaterally. Dural sinuses: Patent. Lung apices: Partially visualized upper lobe lung parenchyma appears clear. Soft tissues: The visualized pharyngeal soft tissues are normal in appearance noting angiographic phase technique. The oropharyngeal airway appears widely patent. The salivary and thyroid glands are normal in appearance. No cervical lymphadenopathy is seen. Skeletal structures: The skeletal structures are osteopenic. The calvarium appears intact. The cervical spine is maintained noting multilevel spondylosis. Fusion hardware is noted in the lower cervical region. No lytic or blastic lesion is seen. Orbits: The bony orbits are intact. Orbital contents are normal as visualized noting bilateral ocular lens implants. Sinuses and mastoids: There is trace mucosal thickening in the right maxillary antrum. Trace fluid is noted in the left sphenoid sinus. The remaining Paranasal sinuses are clear. The mastoid air cells are well pneumatized. Cerumen is noted in the left external auditory canal. IMPRESSION: 1. There is loss of peter-white matter differentiation identified within the high right parietal lobe cortex, typical in appearance for subacute ischemia. 2. A smaller focus of subacute ischemia is seen in the left frontal lobe cortex. These are both new from the 2016 MRI and bilateral findings suggests an embolic phenomenon. 3. There is no hemorrhage or mass effect. 4. 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 5. Otherwise unremarkable CT angiogram of the brain. 6. Unremarkable CT angiogram of the neck. Medications Administered ER Medications Given: Metoprolol 5mg IV ECG Indication: other (CVA) Rate (beats per minute): 137 Rhythm: atrial fibrillation Findings: no acute ischemic change Comparison ECG Date: from (January 24, 2021) Change: the following changes noted (atrial fibrillation has replaced SR) Code Status & VTE Plan Code Status Full VTE Prophylaxis Plan VTE Prophylaxis will be ordered: Yes PG Care Time/CCT Total # of Minutes Spent Total Time Spent with Patient: Total time spent is greater than 50% in coordination of care (as documented) at patient's floor/unit and/or counseling patient: Coding Level of Care Code 17560 Initial Inpt Care Lvl 3 Diagnoses Acute CVA (cerebrovascular accident) I63.9 Moderate obstructive sleep apnea G47.33 CAD (coronary artery disease) I25.118 Associated angina: with stable angina Coronary Disease-Associated Artery/Lesion type: [place] artery [place] vs. transplanted heart: [place] heart Atrial fibrillation I48.91 Hypertension I10 Hypothyroidism E03.9 Mild cognitive impairment G31.84 Chronic systolic heart failure I50.22 (1) CAD (coronary artery disease) Associated angina: with stable angina Coronary Disease-Associated Artery/Lesion type: [place] artery [place] vs. transplanted heart: [place] heart Qualified Code(s): I25.118 - Atherosclerotic heart disease of [place] coronary artery with other forms of angina pectoris
[2021-04-12 19:03] LABS: Thyroid Stimulating Hormone 0.01 uIu/ml (0.300-4.500)
[2021-04-12 19:19] LABS: T4 Free Thyroxine 1.4 ng/dl (0.8-1.6)
--- NOTE | 2021-04-12 20:08 | Magnetic Resonance Report ---
MRI OF THE BRAIN WITHOUT IV CONTRAST CLINICAL HISTORY: Right-sided facial droop. Stroke. COMPARISON STUDY: CT of the brain dated 04/12/2021. MRI of the brain dated 06/13/2015 TECHNIQUE: MRI of the brain was performed utilizing various T1 and T2-weighted sequences in the axial , sagittal, and coronal planes. IV contrast was not administered for this examination. FINDINGS: Brain parenchyma: There is age-related involutional change noting moderate subcortical and periventri cular microangiopathic disease. There are foci of restricted diffusion identified in the high right p arietal lobe and the left posterior frontal lobe consistent with ischemia. These are likely subacute when correlated with today's CT scan. A chronic lacunar infarct is noted in the ginger. There is no hem orrhage or mass effect. No extra-axial fluid collection is seen. The cerebellar tonsils are normal i n configuration. Ventricles, sulci, and cisterns: Prominent secondary to involutional change. Pituitary and sella: Unremarkable. Intracranial vasculature: Normal flow voids are maintained at the skull base. Orbits: The bony orbits are grossly intact. Orbital contents are normal in appearance noting bilatera l ocular lens implants. Sinuses and mastoids: Trace fluid is noted in the left sphenoid sinus. The remaining paranasal sinuse s and the mastoid air cells are clear. Calvarium: Unremarkable. Cervical cord: Partially visualized cervical spinal cord is normal in morphology and signal intensity . IMPRESSION: 1. Left frontal and right parietal lobe infarcts as above. When correlated with today's CT scan these are likely subacute. 2. No additional foci of acute ischemia are identified. 3. There is no hemorrhage or mass effect. ACT 112: Negative or not required by law. Electronically signed by: Daniel Hernandez M.D. 04/12/2021 8:07 PM
[2021-04-12] MEDS ORDERED: Heparin IV Adult Wt-Based Standard *NO* Bolus Protocol ONE (22:54)
[2021-04-12] MEDS ORDERED: PHARMACIST DISCHARGE MED REC CONSULT PRN (22:54)
[2021-04-12] MEDS ORDERED: METOPROLOL TARTRATE 1 MG/ML VIAL IV PRN (22:54)
[2021-04-12] MEDS ORDERED: HEPARIN 25000 UNIT/500 ML D5W IV ONE (23:32)
[2021-04-12] MEDS: METOPROLOL TARTRATE 1 MG/ML VIAL IV SCH (23:41)
[2021-04-12] MEDS: LACTATED RINGER'S 1,000 ML IV SCH (23:42)
[2021-04-12] MEDS: HEPARIN SODIUM/DEXTROSE 25,000 UNITS/500 ML BAG IV SCH (23:42)
[2021-04-12 23:45] LABS: Basophils # (auto) 0.07 K/uL (0-0.2); Basophils % (auto) 0.8 %; Eosinophils % (auto) 3.4 %; Hematocrit (blood only) 42.4 % (42-52); Hemoglobin 14.1 g/dL (14.0-18.0); Immature Granulocytes # (auto) 0.02 K/uL (0.00-0.02); Immature Granulocytes % (auto) 0.2 %; Lymphocytes # (auto) 1.97 K/uL (1.2-3.4); Lymphocytes % (auto) 22.4 %; Mean Corpuscular Hemoglobin 32.2 pg (25-34); Mean Corpuscular Volume 96.8 fL (80-100); Mean Platelet Volume 10.7 fL (7.4-10.4); Monocytes # (auto) 0.85 K/uL (0.11-0.59); Monocytes % (auto) 9.7 %; Neutrophils # (auto) 5.57 K/uL (1.4-6.5); Neutrophils % (auto) 63.5 %; Platelet Count 316 K/uL (130-400); RDW Coefficient of Variation 13.4 % (11.5-14.5); RDW Standard Deviation 47.5 fL (36.4-46.3); Red Blood Count 4.38 M/uL (4.7-6.1); White Blood Count 8.78 K/uL (4.8-10.8)
[2021-04-12 23:46] LABS: Mean Corpuscular Hgb Conc 33.3 g/dL (32-36)
[2021-04-12 23:55] LABS: INR 1.2 (0.9-1.1); Partial Thromboplastin Ratio 1.1; Partial Thromboplastin Time 27.9 Seconds (21.0-31.0)
[2021-04-13] MEDS: METOPROLOL TARTRATE 1 MG/ML VIAL IV SCH ×3 (03:08→12:03)
[2021-04-13 05:58] LABS: Basophils # (auto) 0.07 K/uL (0-0.2); Basophils % (auto) 0.8 %; Eosinophils % (auto) 3.5 %; Hematocrit (blood only) 43.5 % (42-52); Hemoglobin 14.3 g/dL (14.0-18.0); Immature Granulocytes # (auto) 0.03 K/uL (0.00-0.02); Immature Granulocytes % (auto) 0.4 %; Lymphocytes # (auto) 2.42 K/uL (1.2-3.4); Lymphocytes % (auto) 28.3 %; Mean Corpuscular Hemoglobin 31.8 pg (25-34); Mean Corpuscular Hgb Conc 32.9 g/dL (32-36); Mean Corpuscular Volume 96.7 fL (80-100); Mean Platelet Volume 10.7 fL (7.4-10.4); Monocytes # (auto) 0.75 K/uL (0.11-0.59); Monocytes % (auto) 8.8 %; Neutrophils # (auto) 4.99 K/uL (1.4-6.5); Neutrophils % (auto) 58.2 %; Platelet Count 362 K/uL (130-400); RDW Coefficient of Variation 13.4 % (11.5-14.5); RDW Standard Deviation 47.4 fL (36.4-46.3); White Blood Count 8.56 K/uL (4.8-10.8)
[2021-04-13 06:10] LABS: Partial Thromboplastin Ratio 1.6; Partial Thromboplastin Time 41.6 Seconds (21.0-31.0)
[2021-04-13 06:24] LABS: BUN Creatinine Ratio 12.1 (10-20); Calcium 9.4 mg/dl (8.5-10.1); Creatinine Clr Calc Pharmacy 59.3 ml/min; Est GFR (African American) 68.7 ml/min; Est GFR (Non-African American) 59.3 ml/min; Potassium 4.6 mmol/L (3.5-5.1)
[2021-04-13] MEDS ORDERED: LEVOTHYROXINE SODIUM 100 MCG TABLET PO SCH (06:30)
--- NOTE | 2021-04-13 06:44 | Electrocardiogram Report ---
Test Reason : Blood Pressure : / mmHG Vent. Rate : 137 BPM Atrial Rate : 141 BPM P-R Int : 000 ms QRS Dur : 080 ms QT Int : 322 ms P-R-T Axes : 000 -35 069 degrees QTc Int : 486 ms Atrial fibrillation with rapid ventricular response Left axis deviation Nonspecific T wave abnormality Prolonged QT Abnormal ECG When compared with ECG of 24-JAN-2021 17:06, Atrial fibrillation has replaced Sinus rhythm Vent. rate has increased BY 73 BPM Confirmed by Burton Russell ([id number]) on 04/13/2021 6:44:06 AM Referred By: REFERRED SELF Confirmed By:Burton Russell
[2021-04-13] MEDS: LACTATED RINGER'S 1,000 ML IV SCH (12:17)
[2021-04-13 12:26] LABS: Partial Thromboplastin Ratio 1.9
--- NOTE | 2021-04-13 14:45 | Hospitalist Progress Note ---
Date of Service April 13, 2021 Assessment & Plan (1) Acute CVA (cerebrovascular accident): Plan: 70 yo WM with a history of atrial fibrillation on chronic ACT therapy with Eliquis presents with acute CVA manifested by R facial droop and slurred speech - Suspect cardioembolic - ?due to recently holding Eliquis +/- missed doses. - MRI brain without IV contrast performed, results as above - TTE performed, results as above - Lipid panel performed, results reviewed, well controlled=LDL 63, HDL 36, TG 80 - Start heparin IV standard drip without bolus for atrial fibrillation as most likely cause of his stroke - FIELD REPRESENTATIVE evaluated patient, diet ordered, no overt signs of aspiration - D/C IVF as diet has been advanced - PT/OT eval - Consult neurology - no coverage on Wednesday, will see Wednesday - Low dose Lisinopril held for permissive HTN (2) Atrial fibrillation: Plan: - Appears to be paroxysmal given prior EKGs in January and May in NSR - Prior amiodarone induced liver transaminitis noted; discontinued Mar 2020 - Since no longer NPO, resume Toprol XL 25mg daily, first dose now - Continue IV Lopressor 5mg PRN sustained HR>120 - Anticoagulation with heparin standard IV drip without a bolus - Continue holding Eliquis d/t anticipate heart cath 04/14 (3) Ischemic cardiomyopathy: Plan: - Discussed case with cardiology, routinely sees Dr. Macario, last visit 09/2020 - Last echo 2017, LVEF 35-40%, now EF <20% - Make NPO after MN in anticipation of left heart cath tomorrow - LifeVest vs. ICD prior to discharge - Will consult Dr. Maxwell, interventional cardiology, to perform procedure - Appreciate cardiology assistance in this case (4) CAD (coronary artery disease): Plan: - No current chest pain or shortness of breath to suggest ACS - Elevated troponin on admission suggestive of demand ischemia - LMI, CHULA x2 LCX; staged LAD CHULA x2, May 2015; AMI, occluded stents, overlapping CHULA, March 2017 - Resume Brilinta, Atorvastatin, Toprol, DONYA held to allow permissive HTN (5) Hypertension: Plan: - Hold DONYA as noted above - Resume Toprol to achieve rate control (6) Hypothyroidism: Plan: - Appears to be overtreated and recently decreased last month from 112 to 100 mcg PO daily due to undetectable TSH. - Repeat TSH improving but still appears to be overtreated, reduce dose to 75 mcg po daily starting 04/14 (7) Mild cognitive impairment: Plan: - Resume galantamine (8) Chronic systolic heart failure: Plan: - With severe LV dysfunction, see above - Resume Lasix 20mg daily, will give a one time dose of IV Lasix 20mg x1 now - Cap IVF (which were initiated by admitting provider while pt was NPO) (9) Moderate obstructive sleep apnea: Plan: - Notably history of this however not on CPAP @ home Plan: VTE Prophylaxis - heparin IV drip as above Diet - heart healthy, easy to chew, fluid and salt restriction PT/OT eval to determine appropriate disposition Updated patient's son, Terry, at bedside Admission and Anticipated Discharge Date Admission Date: April 12, 2021 Subjective MR. Delgado was seen on rounds today. He was hospitalized 04/12 for acute CVA after presenting to ED c/o slurred speech and right sided facial droop. Pt currently reports that "this side doesn't work" referring to the right side of his mouth. He denies numbness/tingling or focal weakness in any of his extremities. Denies chest pain or palpitations. He was kept NPO last night until assessed by SP. Subsequently, his oral Toprol was held and he has been in atrial fibrillation with variable rate throughout the day, despite being on scheduled IV Lopressor. He feels like he is slightly short of breath while sitting in chair but denies cough. Denies orthopnea, PND, or LE edema. Says he "occasionally gets water in his legs." Pt was accompanied by son at the time of my visit. According to RN, pt has been attempting to get up and expressing that he wants to leave throughout the day. Review of Systems Review of Systems: CONSTITUTIONAL: Denies weight loss/gain, fever and chills, fatigue, malaise, generalized weakness. HEENT: Denies changes in vision and hearing. RESPIRATORY: Denies SOB, cough, wheezing. CV: Denies palpitations, CP, lower extremity edema, orthopnea, PND. GI: Denies abdominal pain, nausea, vomiting and diarrhea. : Denies dysuria and urinary frequency, urgency, hesitancy. MUSCULOSKELETAL: Denies myalgia and joint pain. SKIN: Denies rash and pruritus. NEUROLOGICAL: +numbness/tingling R side of lip with R facial droop. PSYCHIATRIC: Denies recent changes in mood. Denies anxiety and depression. Physical Exam Physical Exam: GENERAL: 70 yo well-developed, well-nourished WM. NAD. LUNGS: Non labored. Bibasilar crackles appreciated. No wheezes/rhonchi. CARDIOVASCULAR: Irregular rate and rhythm. No JVD. ABDOMEN: Soft, non-tender and non-distended. No palpable masses. BS normal x 4 quad. EXTREMITIES: No edema. Non-tender. Peripheral pulses +2/4. NEUROLOGIC: A&O x3. R sided facial droop and altered sensation on R side of face. All extremities with equal strength +5/5 throughout. PSYCHIATRIC: Cooperative. Appropriate mood and affect. SKIN: Warm, dry, intact. No rashes or lesions. Results & Data Results & Data ([facility]) Vital Signs (Past 12 Hours) Vital Signs Temp Pulse Pulse Resp BP BP Pulse Ox 04/13/21 12:03 128 H 102/73 04/13/21 11:37 36.5 C 96 H 18 102/73 96 04/13/21 07:42 125 H 122/83 04/13/21 07:40 36.4 C L 109 H 20 122/83 95 04/13/21 03:12 36.7 C 121 H 18 108/62 95 04/13/21 03:08 121 H 108/62 Laboratory Results 04/13/21 05:47 04/13/21 05:47 Diagnostic Findings Brain MRI 04/12/21 17:53 MRI OF THE BRAIN WITHOUT IV CONTRAST CLINICAL HISTORY: Right-sided facial droop. Stroke. COMPARISON STUDY: CT of the brain dated 04/12/2021. MRI of the brain dated 06/13/2015 TECHNIQUE: MRI of the brain was performed utilizing various T1 and T2-weighted sequences in the axial, sagittal, and coronal planes. IV contrast was not administered for this examination. FINDINGS: Brain parenchyma: There is age-related involutional change noting moderate subcortical and periventricular microangiopathic disease. There are foci of restricted diffusion identified in the high right parietal lobe and the left posterior frontal lobe consistent with ischemia. These are likely subacute when correlated with today's CT scan. A chronic lacunar infarct is noted in the ginger. There is no hemorrhage or mass effect. No extra-axial fluid collection is seen. The cerebellar tonsils are normal in configuration. Ventricles, sulci, and cisterns: Prominent secondary to involutional change. Pituitary and sella: Unremarkable. Intracranial vasculature: Normal flow voids are maintained at the skull base. Orbits: The bony orbits are grossly intact. Orbital contents are normal in appearance noting bilateral ocular lens implants. Sinuses and mastoids: Trace fluid is noted in the left sphenoid sinus. The remaining paranasal sinuses and the mastoid air cells are clear. Calvarium: Unremarkable. Cervical cord: Partially visualized cervical spinal cord is normal in morphology and signal intensity. IMPRESSION: 1. Left frontal and right parietal lobe infarcts as above. When correlated with today's CT scan these are likely subacute. 2. No additional foci of acute ischemia are identified. 3. There is no hemorrhage or mass effect. ACT 112: Negative or not required by law. Electronically signed by: Daniel Hernandez M.D. 04/12/2021 8:07 PM Echocardiogram: 04/13/21 The left ventricle is moderately dilated. End-diastolic dimension by biplane Kimball was not performed. There is severe left ventricular dysfunction with an estimated ejection fracture less than 20%. The LAD territory is akinetic, the rest of the ventricle is severely hypokinetic. The anterior lateral wall moves best. The study is inadequate to assess for LV apical thrombus due to the lack of contrast. The right ventricle is normal in size. There is severe hypokinesis of the RV free wall. The pulmonary diastolic pressure is approximately 17 mmHg. There is moderate to severe mitral regurgitation. Right ventricular systolic pressure is normal. Diastolic function was not adequately assessed. PG Care Time/CCT Total # of Minutes Spent Total Time Spent with Patient: Total time spent is greater than 50% in coordination of care (as documented) at patient's floor/unit and/or counseling patient: Coding Level of Care Code 10201 Subseq Hosp Care Lvl 3 Diagnoses Acute CVA (cerebrovascular accident) I63.9 Atrial fibrillation I48.91 CAD (coronary artery disease) I25.118 Coronary Disease-Associated Artery/Lesion type: [place] artery [place] vs. transplanted heart: [place] heart Associated angina: with stable angina Hypertension I10 Hypothyroidism E03.9 Mild cognitive impairment G31.84 Chronic systolic heart failure I50.22 Moderate obstructive sleep apnea G47.33 Ischemic cardiomyopathy I25.5 (1) CAD (coronary artery disease) Coronary Disease-Associated Artery/Lesion type: [place] artery [place] vs. transplanted heart: [place] heart Associated angina: with stable angina Qualified Code(s): I25.118 - Atherosclerotic heart disease of [place] coronary artery with other forms of angina pectoris
[2021-04-13] MEDS ORDERED: METOPROLOL SUCC 25MG EXT REL TAB PO STA (14:51)
[2021-04-13] MEDS ORDERED: METOPROLOL TARTRATE 1 MG/ML VIAL IV PRN (15:59)
[2021-04-13] MEDS ORDERED: FUROSEMIDE INJ 20 MG/2 ML VIAL IV ONE (16:42)
[2021-04-13] MEDS: HEPARIN SODIUM/DEXTROSE 25,000 UNITS/500 ML BAG IV SCH (17:45)
[2021-04-13] MEDS: ATORVASTATIN 40 MG TAB PO SCH (19:56)
[2021-04-13] MEDS: TICAGRELOR 90 MG TAB PO SCH (19:57)
[2021-04-13] MEDS ORDERED: BACLOFEN 10 MG TAB PO SCH (21:00)
[2021-04-13] MEDS ORDERED: METOPROLOL TARTRATE 1 MG/ML VIAL IV STA (22:36)
[2021-04-14] MEDS ORDERED: LORazepam 3 MG/6 ML VIAL IV PRN (01:19)
[2021-04-14] MEDS ORDERED: LORazepam 1 MG/2 ML VIAL IV PRN (01:19)
[2021-04-14] MEDS ORDERED: LORazepam 2 MG/4 ML VIAL IV PRN (01:19)
[2021-04-14] MEDS ORDERED: ATIVAN IV ALCOHOL WITHDRAWL IV PRN (01:19)
--- NOTE | 2021-04-14 01:30 | Communication Note ---
Date of Service: April 14, 2021 Contacted by nursing for concern for alcohol withdrawal. Patient on H+P reported 2-3 times weekly drinking with friends, no signs of withdrawal at time of admission. Today per nursing patient has several times asked to leave but was encouraged and convinced to stay. This evening he is tachycardic, sweaty, restless, and acting differently than he has been. He was witnessed patting around the heater and bed in his room looking for something but when asked what he reports "I don't know". He was also noted to be filling up his urinal with water. On interview he reports that sometimes he has a shot or two at home at nighttime. He also endorses hard liquor 2-3 times weekly. It is unclear exactly how much alcohol the patient drinks in a week (different social history with each interview and each provider), but I am concerned that he is presenting in alcohol withdrawal at this time. Initial AWSS score of 8 by nursing; AWSS withdrawal IV protocol initiated. Daily IV thiamine and folic acid added to hospital regimen. Defer further discussion on alcohol cessation to day team. Resident Activity Tracking Resident Involvement: Resident Care Provided Care Provided: Adult Hospital Medicine
[2021-04-14 06:02] LABS: Basophils # (auto) 0.08 K/uL (0-0.2); Basophils % (auto) 0.8 %; Eosinophils # (auto) 0.26 K/uL (0-0.5); Eosinophils % (auto) 2.7 %; Hematocrit (blood only) 45.2 % (42-52); Hemoglobin 14.7 g/dL (14.0-18.0); Immature Granulocytes # (auto) 0.03 K/uL (0.00-0.02); Immature Granulocytes % (auto) 0.3 %; Lymphocytes # (auto) 2.74 K/uL (1.2-3.4); Lymphocytes % (auto) 28.3 %; Mean Corpuscular Hemoglobin 31.8 pg (25-34); Mean Corpuscular Hgb Conc 32.5 g/dL (32-36); Mean Corpuscular Volume 97.8 fL (80-100); Mean Platelet Volume 11.1 fL (7.4-10.4); Monocytes # (auto) 0.88 K/uL (0.11-0.59); Monocytes % (auto) 9.1 %; Neutrophils # (auto) 5.69 K/uL (1.4-6.5); Neutrophils % (auto) 58.8 %; Platelet Count 360 K/uL (130-400); RDW Coefficient of Variation 13.5 % (11.5-14.5); RDW Standard Deviation 48.3 fL (36.4-46.3); Red Blood Count 4.62 M/uL (4.7-6.1); White Blood Count 9.68 K/uL (4.8-10.8)
[2021-04-14 06:22] LABS: Partial Thromboplastin Ratio 2.5
[2021-04-14] MEDS ORDERED: LEVOTHYROXINE SODIUM 75 MCG TABLET PO SCH (06:30)
[2021-04-14 06:31] LABS: Calcium 9.5 mg/dl (8.5-10.1); Creatinine Clr Calc Pharmacy 44.5 ml/min; Est GFR (African American) 49.5 ml/min; Est GFR (Non-African American) 42.7 ml/min
[2021-04-14 06:45] LABS: Partial Thromboplastin Time 66.5 Seconds (21.0-31.0)
[2021-04-14 07:41] LABS: Estimated Average Glucose 105 mg/dl; Hemoglobin A1C 5.3 % (4.5-5.6)
[2021-04-14] MEDS ORDERED: METOPROLOL TARTRATE 1 MG/ML VIAL IV STA (07:55)
--- NOTE | 2021-04-14 08:09 | Hospitalist Progress Note ---
Date of Service April 14, 2021 Assessment & Plan (1) Acute CVA (cerebrovascular accident): Plan: 70 yo WM with a history of atrial fibrillation on chronic Eliquis presents with subacute CVA manifested by R facial droop and slurred speech - Suspect cardioembolic - likely missed doses of Eliquis will add aspirin 81mg daily - MRI brain without IV contrast: Left frontal and right parietal lobe infarcts as above. likely subacute - TTE performed, EF is 20% - Lipid panel performed, results reviewed, well controlled=LDL 63, HDL 36, TG 80 - HbA1c is 5.3% - PT/OT eval - Consult neurology - discussed with Dr. Conklin - Low dose Lisinopril held for permissive HTN stat CT head this morning due to increased lethargy: no hemorrhagic conversion, no further evolution of stroke bed (2) Altered mental state: Plan: lethargic, difficult to arouse but will answer questions only oriented to person slurred speech (due to stroke) CT head with no acute changes ammonia, lactic acid and ABG normal Cr is 1.6 patient starting to wake up more, follow commands could have just been sleepy and some residual effects from Ativan last night around 1am (3) Atrial fibrillation: Plan: RVR this morning, 120-150's give Normosol 80cc/hr due to not drinking, BP soft and Cr up at 1.6 change to Lovenox 1mg/kg for full anticoagulation since CT head shows no hemorrhage digoxin 250mcg IV now Toprol 25mg PO now only use Lopressor IV as needed (4) Acute kidney injury: Plan: Cr up to 1.6, got Lasix 20mg IV yesterday hold Lasix, no drinking much give Normosol 80cc/hr follow UO and BMP in morning (5) Alcohol withdrawal: Plan: admits to drinking 2-3 hard drinks a night, could be more placed on AWSS with Ativan tachycardic, afib, with rates in 130-150's at times altered mental status this morning, got Ativan between 1-2am now waking up more (6) Ischemic cardiomyopathy: Plan: - Discussed case with cardiology, routinely sees Dr. Macario, last visit 09/2020 - Last echo 2018, LVEF 35-40%, now EF <20% -no plans for heart cath today, d/w Dr. Macario, allow him to eat monitor breathing closely with giving fluids but his Cr is up at 1.6 and not drinking much (7) CAD (coronary artery disease): Plan: - No current chest pain or shortness of breath to suggest ACS - Elevated troponin on admission suggestive of demand ischemia - LMI, CHULA x2 LCX; staged LAD CHULA x2, May 2015; AMI, occluded stents, overlapping CHULA, March 2017 - Resume Brilinta, Atorvastatin, Toprol, DONYA held to allow permissive HTN (8) Hypertension: Plan: - Hold DONYA as noted above (9) Hypothyroidism: Plan: - Appears to be overtreated and recently decreased last month from 112 to 100 mcg PO daily due to undetectable TSH. - Repeat TSH improving but still appears to be overtreated, reduce dose to 75 mcg po daily starting 04/14 (10) Mild cognitive impairment: Plan: - Resume galantamine (11) Chronic systolic heart failure: Plan: - With severe LV dysfunction, see above - Resume Lasix 20mg daily, will give a one time dose of IV Lasix 20mg x1 now - Cap IVF (which were initiated by admitting provider while pt was NPO) (12) Moderate obstructive sleep apnea: Plan: - Notably history of this however not on CPAP @ home Plan: VTE Prophylaxis - heparin IV drip as above Diet - heart healthy, easy to chew, fluid and salt restriction PT/OT eval to determine appropriate disposition Updated patient's son, Terry, at bedside Admission and Anticipated Discharge Date Admission Date: April 12, 2021 Subjective evaluated patient first thing this morning, per RN he was hypothermic, confused, HR in 150's found him to be lethargic, right facial droop and slurred speech (not new) he was oriented to person only, no clue he was in the hospital ABG with normal pH and CO2, ammonia normal EKG with afib RVR but no ischemia Cr noted to be 1.6 after Lasix yesterday and BP a little soft, started on IV fluids discussed with Dr. Conklin, at baseline he has memory issues, writes everything down, but he would not be surprised if he forgot medications Dr. Conklin does not feel the subacute strokes explain any lethargy, just the facial droop and slurred speech discussed with Dr. Macario, he knows patient from clinic, again agrees that he has some penitentiary memory issues for HR can use metoprolol and could try Digoxin since BP is soft discussed plan with child adolescent psychiatrist of Systems Review of Systems: Unobtainable due to cognitive status (confused, lethargic, not in distress) Physical Exam Physical Exam: General: well developed, well nourished, disheveled, lethargic, no distress Neck: supple, trachea midline, normal thyroid Lungs: clear to auscultation bilaterally, normal respiratory effort, no accessory muscle use, no distress Heart: tachycardic, irreg irreg S1 and S2, no murmur, peripheral pulses normal, capillary refill normal, no edema Abdomen: soft, NT, ND, + BS, no hepatomegaly, normal to percussion Extremities: normal in appearance, no cyanosis, no petechiae, strength is 5/5 bilaterally Neuro: lethargic but wakes up and follows commands, moves all extremities, + right facial droop and slurred speech otherwise CN II-XII intact, no pronator drift Skin: warm, dry, no rash, normal turgor Psych: lethargic, oriented to person only Results & Data Results & Data ([facility]) Vital Signs (Past 12 Hours) Vital Signs Temp Pulse Pulse Resp BP BP BP 04/14/21 07:48 36.5 C 96 H 24 112/69 04/14/21 07:37 36.5 C 157 H 16 04/14/21 02:49 87 20 124/98 04/13/21 23:00 04/13/21 22:52 124 H 122/80 04/13/21 22:51 36.4 C L 124 H 18 122/80 04/13/21 20:52 132 H 113/81 Pulse Ox Pulse Ox 04/14/21 07:48 91 04/14/21 07:37 92 04/14/21 02:49 90 04/13/21 23:00 95 04/13/21 22:52 04/13/21 22:51 97 04/13/21 20:52 Laboratory Results Laboratory Results - last 24 hr 04/13/21 04/14/21 04/14/21 05:47 05:35 05:35 WBC 9.68 RBC 4.62 L Hgb 14.7 Hct 45.2 MCV 97.8 MCH 31.8 MCHC 32.5 RDW Std Deviation 48.3 H RDW Coeff of Sonja 13.5 Plt Count 360 MPV 11.1 H Immature Gran % (Auto) 0.3 Neut % (Auto) 58.8 Lymph % (Auto) 28.3 [place] % (Auto) 9.1 Eos % (Auto) 2.7 Baso % (Auto) 0.8 Neut # (Auto) 5.69 Lymph # (Auto) 2.74 [place] # (Auto) 0.88 H Eos # (Auto) 0.26 Baso # (Auto) 0.08 Immature Gran # (Auto) 0.03 H APTT PTT Ratio ABG pH ABG pCO2 ABG pO2 ABG HCO3 ABG O2 Saturation ABG Base Excess Bk Test Barometric Pressure Oxygen Given Sodium 141 Potassium 5.0 Chloride 107 Carbon Dioxide 27 Anion Gap 7.0 BUN 21 H Creatinine 1.60 H D Est Cr Clr Drug Dosing 44.5 Est GFR ( Amer) 49.5 Est GFR (Non-Af Amer) 42.7 BUN/Creatinine Ratio 13.0 Glucose 101 H Estimat Average Glucose 105 Hemoglobin A1c 5.3 Lactate Calcium 9.5 Ammonia TSH 04/14/21 04/14/21 04/14/21 05:35 08:16 08:16 WBC RBC Hgb Hct MCV MCH MCHC RDW Std Deviation RDW Coeff of Sonja Plt Count MPV Immature Gran % (Auto) Neut % (Auto) Lymph % (Auto) [place] % (Auto) Eos % (Auto) Baso % (Auto) Neut # (Auto) Lymph # (Auto) [place] # (Auto) Eos # (Auto) Baso # (Auto) Immature Gran # (Auto) APTT 66.5 H* PTT Ratio 2.5 ABG pH ABG pCO2 ABG pO2 ABG HCO3 ABG O2 Saturation ABG Base Excess Bk Test Barometric Pressure Oxygen Given Sodium Potassium Chloride Carbon Dioxide Anion Gap BUN Creatinine Est Cr Clr Drug Dosing Est GFR ( Amer) Est GFR (Non-Af Amer) BUN/Creatinine Ratio Glucose Estimat Average Glucose Hemoglobin A1c Lactate 1.0 Calcium Ammonia 20.7 TSH 04/14/21 04/14/21 08:16 08:26 WBC RBC Hgb Hct MCV MCH MCHC RDW Std Deviation RDW Coeff of Sonja Plt Count MPV Immature Gran % (Auto) Neut % (Auto) Lymph % (Auto) [place] % (Auto) Eos % (Auto) Baso % (Auto) Neut # (Auto) Lymph # (Auto) [place] # (Auto) Eos # (Auto) Baso # (Auto) Immature Gran # (Auto) APTT PTT Ratio ABG pH 7.42 ABG pCO2 40 ABG pO2 119 H ABG HCO3 25 H ABG O2 Saturation 98.5 H ABG Base Excess 0.9 Bk Test Pos Barometric Pressure 739.9 Oxygen Given RA Sodium Potassium Chloride Carbon Dioxide Anion Gap BUN Creatinine Est Cr Clr Drug Dosing Est GFR ( Amer) Est GFR (Non-Af Amer) BUN/Creatinine Ratio Glucose Estimat Average Glucose Hemoglobin A1c Lactate Calcium Ammonia TSH 0.[address] head: no acute changes, shows prior subacute strokes, no bleeding or edema CXR: mild pulmonary edema, unchanged from prior CXR Medications Administered Current Inpatient Medications Atorvastatin Calcium (Atorvastatin 40 Mg Tab) 80 mg PO QPM [facility] Stop: 05/13/21 20:59 Last Admin: 04/13/21 19:56 Dose: 80 mg Documented by: Enoxaparin Sodium (Enoxaparin 100 Mg/1ml Syr) 90 mg SQ Q12H [facility] Stop: 05/14/21 12:29 Galantamine Hydrobromide (Galantamine Hydrobromide 8 Mg Caper) 24 mg PO [facility] Stop: 05/14/21 08:59 Last Admin: 04/14/21 09:24 Dose: 24 mg Documented by: Folic Acid 1 mg/ Syringe 10 mls @ 5 mls/[facility] Stop: 05/14/21 08:59 Last Admin: 04/14/21 09:23 Dose: 5 mls/min Documented by: Thiamine HCl 100 mg/ Syringe 10 mls @ 2 mls/min IV [facility] Stop: 05/14/21 08:59 Last Admin: 04/14/21 09:23 Dose: 2 mls/min Documented by: Lorazepam (Ativan) 1 mg in 2 mls @ 2 mls/min IV UD PRN; Protocol PRN Reason: EtOH Withdrawl AWSS Score 6,7 Stop: 05/14/21 01:18 Lorazepam (Ativan) 2 mg in 4 mls @ 4 mls/min IV UD PRN; Protocol PRN Reason: EtOH Withdrawl AWSS Score 8,9 Stop: 05/14/21 01:18 Last Admin: 04/14/21 01:32 Dose: 4 mls/min Documented by: Lorazepam (Ativan) 3 mg in 6 mls @ 4 mls/min IV ONCE PRN; Protocol PRN Reason: EtOH Withdrawl AWSS Score >=10 Stop: 05/14/21 01:18 Parenteral Electrolytes (Normosol-R) 1,000 mls @ 80 mls/hr IV .[id number] [facility] Stop: 05/14/21 07:59 Last Admin: 04/14/21 08:46 Dose: 80 mls/hr Documented by: Metoprolol Succinate (Metoprolol Succ 25mg Ext Rel Tab) 25 mg PO QAM [facility] Stop: 05/14/21 12:29 Miscellaneous Information (Pharmacist Discharge Med Rec Consult) 1 ea N/A UD PRN PRN Reason: Consult Stop: 05/12/21 22:53 Ticagrelor (Ticagrelor 90 Mg Tab) 90 mg PO BID [facility] Stop: 05/13/21 20:59 Last Admin: 04/14/21 09:25 Dose: 90 mg Documented by: Venlafaxine HCl (Venlafaxine Hcl Xr 150 Mg Capxr) 150 mg PO DAILY [facility] Stop: 05/14/21 08:59 Last Admin: 04/14/21 09:25 Dose: 150 mg Documented by: PG Care Time/CCT Total # of Minutes Spent Total Time Spent: 50 Total Time Spent with Patient: Total time spent is greater than 50% in coordination of care (as documented) at patient's floor/unit and/or counseling patient: Critical Care Time: Yes Total Critical Care Time: 50 This case had a high probability of a clinically significant, sudden, or life threatening deterioration of this patient's condition which required my full and direct attention, intervention and personal management. Coding Level of Care Code 19929 Subseq Hosp Care Lvl 3 (25 - SIGNIFICANT, SEPARATELY IDENTIFIABLE ) Diagnoses Acute CVA (cerebrovascular accident) I63.9 Atrial fibrillation I48.91 Ischemic cardiomyopathy I25.5 CAD (coronary artery disease) I25.118 Associated angina: with stable angina Coronary Disease-Associated Artery/Lesion type: [place] artery [place] vs. transplanted heart: [place] heart Hypertension I10 Hypothyroidism E03.9 Mild cognitive impairment G31.84 Chronic systolic heart failure I50.22 Moderate obstructive sleep apnea G47.33 Alcohol withdrawal F10.239 Altered mental state R41.82 Acute kidney injury N17.9 Additional Codes Critical Care Time - Critical Care Time: Yes ([id number]) (1) CAD (coronary artery disease) Associated angina: with stable angina Coronary Disease-Associated Artery/Lesion type: [place] artery [place] vs. transplanted heart: [place] heart Qualified Code(s): I25.118 - Atherosclerotic heart disease of [place] coronary artery with other forms of angina pectoris
--- NOTE | 2021-04-14 08:16 | XRay Report ---
XR chest 1V portable CLINICAL HISTORY: hypoxia, altered mental status TECHNIQUE: Single frontal radiograph of the chest was obtained. Comparison: Comparison is made to chest one view 04/12/2021 FINDINGS: No lines and tubes are seen. Cardiomegaly is noted. Prominence and cephalization of the vasculature i s seen. No evidence of pleural effusion or pneumothorax. IMPRESSION: Mild pulmonary edema. This is essentially unchanged from prior exam. ACT 112: Negative or not required by law. Electronically signed by: Omari Stover M.D. 04/14/2021 8:15 AM
[2021-04-14 08:39] LABS: Base Excess ABG 0.9 mEq/L (-9-1.8); HCO3 ABG 25 mmol/L (19-24); Oxygen Saturation ABG 98.5 % (90-95); PCO2 ABG 40 mmHg (35-46); PO2 ABG 119 mmHg (80-95); pH ABG 7.42 (7.35-7.45)
[2021-04-14 08:41] LABS: Allen Test Pos (Pos)
--- NOTE | 2021-04-14 08:45 | Neurology Consultation ---
Date of Consultation April 14, 2021 Assessment & Plan (1) Acute CVA (cerebrovascular accident): (2) Alcohol withdrawal: (3) Mild cognitive impairment: (4) Atrial fibrillation: (5) Vertebral artery stenosis: this patient has had 2 acute to subacute strokes, 1 in the right high parietal head region, and 1 in the left posterior frontal region which have given him some right facial droop and dysarthria. The patient has a background of excessive daytime somnolence and severe sleep ap neal as well as atrial fibrillation. There was concern he was not taking his apixaban regularly. He is likely experiencing some alcoholic withdrawal currently. The strokes are likely embolic from the heart. He does have severe right vertebral stenosis and some small vessel ischemic disease seen on MRI. Recommendations: 1. continue apixaban as you are doing. 2. Add 81 milligram aspirin daily to protect from small vessel ischemic disease. 3. continue protocol for alcohol withdrawal as you are doing. 4. consider continuing modafinil for his daytime sleepiness. 5. increase activity as able and obtain physical, occupational, and speech therapy consult. overall, I spent a total of 60 minutes with this case including review of records, review of MRI films, direct evaluation of the patient at bedside, and discussion of the case with the patient and RN at bedside as well as Dr. Young including differential diagnosis and treatment options. History of Present Illness Reason for Consultation: Patient is a 70-year-old, who I was asked to see at the request of Dr. Conklin, for neurologic consultation regarding stroke. Requesting Physician: Dr. Conklin. Attending Physician: Omari Young, DO History of Present Illness Patient apparently had the stroke in March of 2008 resulting in some cognitive impairment. I do not have these records. He has been followed ever since by Dr. Escobedo and carries diagnoses of mild cognitive impairment / mild vascular dementia, excessive daytime somnolence disorder, and chronic low back pain. He has a diagnosis of atrial fibrillation on apixaban and there is concern that he was not entirely compliant with his medicine most recently. He also has a history of hypertension, coronary artery disease, ischemic cardiomyopathy, and hypothyroidism. He has severe sleep apnea with no tolerance to CPAP. He was noted to have a cerebral aneurysm repair in 2007 also. He is post cervical spine fusion by Dr. Mendoza. Apparently the patient was at dinner at 6 p.m. on April 11 and was noted to have slurred speech and a facial droop on the right. He was brought to the emergency room at 15:30 on April 12 by his son. Temperature was 36.6, pulse 76 and irregular. He was noted to be in atrial fibrillation. Respiratory rate was 20 blood pressure 124/83, and O2 saturation 95 percent . He was noted to have a right facial droop. CBC and Chem profile were unremarkable. Chest x-ray show cardiomegaly with mild pulmonary vascular congestion. CT scan of the head showed possible right parietal and left frontal new strokes. CT angiography of the head was unremarkable. CT angiography of the neck showed high-grade stenosis in the distal right vertebral. MRI of the brain showed 2 subacute new strokes, 1 in the right high parietal head region and the other in the left posterior frontal head region. There was an old infarct in the ginger and mild to moderate old small vessel ischemia in g eneral. I reviewed these films. He has been noted to be in atrial fibrillation is entire hospitalization with rapid ventricular rate up to 150. He is currently in the 90s. Blood pressure is 112/69. He was confused and aimlessly doing things last night and was felt to be in alcohol withdrawal. The patient admits to having "2 shots of whiskey" each night. Echocardiogram shows severe left ventricular dysfunction as well as some right heart issues with an ejection fraction of 20 percent. CBC was unremarkable today as well as a Chem profile except for a BUN of 21 and creatinine 1.6. Total cholesterol is 115 and triglycerides 80. TSH is low and hemoglobin A1c is 5.3. Allergies Allergy/AdvReac Type Severity Reaction Status Date / Time donepezil Allergy Unknown Verified 04/12/21 16:49 duloxetine [From Cymbalta] Allergy Unknown Verified 04/12/21 16:49 Home Medications Medication Instructions Recorded Confirmed Type cholecalciferol (vitamin D3) 25 1,000 unit PO QAM 12/31/17 04/12/21 History mcg (1,000 unit) tablet (Vitamin D3) coenzyme Q10 100 mg tablet 100 mg PO QAM 12/31/17 04/12/21 History cyanocobalamin (vitamin B-12) 1,000 mcg PO PM 12/31/17 04/12/21 History 1,000 mcg tablet (Vitamin B-12) garlic 1,000 mg PO PM 12/31/17 04/12/21 History lisinopril 5 mg tablet 5 mg PO QAM 12/31/17 04/12/21 History nitroglycerin 0.4 mg sublingual 0.4 mg SUBLINGUAL UD PRN 12/31/17 04/12/21 History tablet (Nitrostat) thiamine HCl (vitamin B1) 100 mg 100 mg PO BID 12/31/17 04/12/21 History tablet vitamin E 100 unit capsule 100 unit PO DAILY 12/31/17 04/12/21 History metoprolol succinate 25 mg 25 mg PO QAM #1 tab 12/14/18 04/12/21 History tablet,extended release 24 hr omega-3 fatty acids 1,000 mg 1,000 mg PO QAM 01/18/19 04/12/21 History capsule (Fish Oil Concentrate) biotin 1 mg tablet 1 mg PO QAM tab 03/14/19 04/12/21 History atorvastatin 80 mg tablet 80 mg PO QPM #90 tab 10/03/20 04/12/21 Rx baclofen 10 mg tablet 10 mg PO BID 30 Days #60 tab 11/01/20 04/12/21 Rx modafinil 100 mg tablet 100 mg PO QAM #30 tab 12/02/20 04/12/21 Rx furosemide 20 mg tablet 20 mg PO QAM #30 tab 01/05/21 04/12/21 Rx ticagrelor 90 mg tablet (Brilinta) 90 mg PO BID #60 tab 01/27/21 04/12/21 Rx galantamine 24 mg 24 hr 24 mg PO QAM 30 Days #30 cap 02/24/21 04/12/21 Rx capsule,extended release venlafaxine 150 mg 150 mg PO DAILY #30 cap 02/24/21 04/12/21 Rx capsule,extended release 24 hr apixaban 5 mg tablet 5 mg PO BID tab 03/12/21 04/12/21 History levothyroxine 100 mcg tablet 100 mcg PO QAM #30 tab 03/27/21 04/12/21 Rx Patient History Medical History Acute on chronic systolic (congestive) heart failure Aneurysm BRAIN 2007- [facility] /UNSURE OF SIZE- FOLLOWS DR. BAKER Bronchitis Degenerative disc disease Elevated TSH Exposure to COVID-19 virus H/O arterial ischemic stroke residual cognitive impairment. APR 25 2008/ [facility] /PLACED ON BLOOD THINNER Hypertension Lumbar radiculopathy Myocardial Infarction 2016-[facility]- CATH- STENT- FOLLOWS WITH DR. BAKER Nasal septal deviation Osteoarthritis Sleep apnea NO CPAP Tinnitus Transaminitis Surgical History Aspiration into airway PER PATIENT, THIS HAPPENED AFTER E.T TUBE CAME OUT IN RECOVERY, THINKS IT WAS 2005, DOES NOT REMEMBER WHAT PROCEDURE BUT THINKS IT WAS AT [facility]- POOR HISTORIAN (HX STROKE) H/O hernia repair H/O neck surgery History of cardioversion [facility] 2017 History of colonoscopy History of deviated nasal septum WITH REPAIR History of left cataract surgery Hx of umbilical hernia repair S/P cardiac catheterization ONE @ [facility]/ ONE @ [facility] - 2016 & 2017- [place]- [place] Family History Mother Diabetes Depression Unknown No problems noted. Father Myocardial infarction Grandfather (Paternal) Myocardial infarction Brother Myocardial infarction Sister Depression Other No family history of adverse response to anesthesia No family history of bleeding disorder Denies family history of Colon cancer Ovarian cancer Prostate cancer Breast cancer Social History Smoking Status: Never smoker Age Started Using Tobacco: 22; Age Quit Using Tobacco: 37; Cigarettes Per Day: 30 YEARS AGO; Second Hand Exposure: No; Do You Dip or Chew Tobacco: No; Tobacco Cessation Education Requested by Patient: No Hx Alcohol Use: Yes Alcohol type: hard liquor Alcohol Intake Frequency: 2-3 x/Week Hx Substance Use: No Preferred Language: Macedonian Communication Ability: Effective Visual Impairment: No Limitations Hearing Ability: Normal Data Warehouse Architect Required: No Beliefs That Will Affect Care: None marital status: Current Living Situation: Spouse current occupational status: retired and disabled Other Information That Helps Us Care for You: No Feels Safe at Home: Yes Safety Concerns: Feels Safe At This Time Childhood Exposure to Second-Hand Smoke: Yes Dental Care, Regularly: Yes Physical Activity Frequency: Daily Seatbelt Use: always Sunscreen Use: No Assistive Devices: Glasses Review of Systems Review of Systems: Patient basically denies anything being wrong with him now although he knows he is sleepy. Constitutional: no fever, no fatigue and no weakness Eyes: no diplopia, no eye pain and no worsening vision Ear, Nose, Mouth, Throat: no ear pain, no tinnitus, no hearing loss, no dizziness, no snoring, no hoarseness and no dysphagia Respiratory: no cough and no dyspnea Cardiovascular: no chest pain, no palpitations and no lightheadedness Gastrointestinal: no abdominal pain, no nausea and no vomiting Musculoskeletal: no back pain, no neck pain, no radicular pain, no joint pain and no myalgia Integumentary: no rash and no lesions Neurologic: no gait abnormality, no localized weakness, no generalized weakness, no tingling, no numbness, no tremor(s), no abnormal movements, no headache(s), no abnormal speech, no confusion and no memory loss Psychiatric: no depression, no irritability, no anxiety, no difficulty concentrating, no confusion and no hallucinations Endocrine: no fatigue and no flushing Hematologic / Lymphatic: no easy bleeding and no easy bruising Allergy / Immunological: no urticaria and no problem reported Exam (Neuro) Physical Exam: The patient is right-handed. The patient was sleeping when I 1st came in the room but he was arousable with voice. He would follow 1 step commands well. He knew his name but did not know where he was. Knew the month, year, and the president. He get confused a little easily and was sleepy. He has dysarthria of a significant nature but no noticeable a facial. Pupils are 4 mm bilaterally and reactive to light. Extraocular eye muscles are intact without nystagmus. Visual acuity and visual martinez seem normal grossly to confrontation. There are no deficits to sensation in the face in all 3 distributions of the fifth cranial nerve bilaterally. Corneal reflexes are positive bilaterally. There is a dense facial droop on the right.. Hearing seems normal bilaterally. Palate moves well without asymmetry. There is normal sternocleidomastoid and trapezius (shoulder shrug) strength bilaterally. Tongue is midline with good strength bilaterally. Neck has a full range of motion without discomfort. There are no cervical bruits bilaterally. There are no cranial or ocular bruits. Heart is without murmur. There is a regular rhythm and rate. Cervical, thoracic, and lumbar spine are nontender to palpation. Gait was not tested and stance sitting in bed is poor. With outstretched arms there is no drift. There are no resting, postural, or action tremors. There is no ataxia with finger to nose testing. There is good facility in the hands. No other abnormal involuntary movements are noted. Motor strength is 5/5 diffusely in the arms bilaterally including deltoids, biceps, triceps, brachioradialis, wrist flexors and extensors, rn embedded, and intri nsic hand muscles. Motor strength is 5/5 diffusely in the legs bilaterally including hip flexors, quadriceps, hamstrings, gastrocnemius, tibialis anterior, tibialis posterior, and Peroneii muscles. Toe extensors are normal and there is good bulk in the extensor digitorum brevis muscles bilaterally. The limbs have good tone without rigidity or spasticity. There is no atrophy noted in the muscles. Muscle bulk is normal, there is no tenderness to palpation, no myotonia to percussion, and no fasciculations seen. Sensory examination is intact to touch and pin throughout all 4 limbs diffusely. Reflexes are 1/4 in the biceps, triceps, brachioradialis, quadriceps, and Achilles tendons bilaterally. There is no clonus bilaterally. Toes are downgoing with plantar stimulation on the left and upgoing on the right Peripheral pulses are present and of normal quality distally in all 4 limbs. There is no peripheral edema noted in the limbs. Results & Data ([facility]) Vital Signs (Past 12 Hours) Vital Signs Temp Pulse Pulse Resp BP BP BP 04/14/21 07:48 36.5 C 96 H 24 112/69 04/14/21 07:37 36.5 C 157 H 16 04/14/21 02:49 87 20 124/98 04/13/21 23:00 04/13/21 22:52 124 H 122/80 04/13/21 22:51 36.4 C L 124 H 18 122/80 04/13/21 20:52 132 H 113/81 Pulse Ox Pulse Ox 04/14/21 07:48 91 04/14/21 07:37 92 04/14/21 02:49 90 04/13/21 23:00 95 04/13/21 22:52 04/13/21 22:51 97 04/13/21 20:52 PG Care Time/CCT Total # of Minutes Spent Total Time Spent with Patient: Total time spent is greater than 50% in coordination of care (as documented) at patient's floor/unit and/or counseling patient: Coding Level of Care Code 26582 Initial Inpt Care Lvl 3 Diagnoses Acute CVA (cerebrovascular accident) I63.9 Alcohol withdrawal F10.239 Mild cognitive impairment G31.84 Atrial fibrillation I48.91 Vertebral artery stenosis I65.09 Time Spent (min) 60
[2021-04-14] MEDS: NORMOSOL-R 1,000 ML IV SCH ×2 (08:46→19:25)
[2021-04-14] MEDS ORDERED: lisinopril 5 MG TAB PO SCH (09:00)
[2021-04-14] MEDS ORDERED: METOPROLOL SUCC 25MG EXT REL TAB PO SCH (09:00)
[2021-04-14] MEDS ORDERED: FUROSEMIDE 20 MG TAB PO SCH (09:00)
--- NOTE | 2021-04-14 09:09 | CT Scan Report ---
CT OF THE HEAD WITHOUT CONTRAST CLINICAL HISTORY: lethargy, recent stroke, on heparin COMPARISON STUDY: Head CT, CTA of the head and MRI of the brain April 12, 2021. CT DOSE: 972.49 mGy.cm TECHNIQUE: Helical axial images of the head were obtained without IV contrast. Automated exposure con trol was utilized for the study. A dose lowering technique was utilized adhering to the principles o f ALARA. FINDINGS: No acute intracranial hemorrhage, midline shift or mass effect is present. The appearance o f the right parietal and left frontal lobe infarcts is unchanged since head CT and MRI of March. Ventricular system is stable. Basal cisterns are patent. There are no extra-axial collections . There are no findings to suggest acute dural sinus thrombosis. White matter hypodensities favor sma ll vessel disease. The appearance of the brain is unchanged. There are no significant calvarial abnor malities. IMPRESSION: No change in the right parietal and left frontal lobe subacute to acute infarcts. No acu te intracranial hemorrhage. No mass effect. ACT 112: Negative or not required by law. Electronically signed by: Juan Manrique M.D. 04/14/2021 9:08 AM
[2021-04-14] MEDS: FOLIC ACID 1 MG in SYRINGE 9.8 ML IV SCH (09:23)
[2021-04-14] MEDS: THIAMINE HCL 100 MG in SYRINGE 9 ML IV SCH (09:23)
[2021-04-14] MEDS: GALANTAMINE HYDROBROMIDE 8 MG CAPER PO SCH (09:24)
[2021-04-14] MEDS: TICAGRELOR 90 MG TAB PO SCH ×2 (09:25→20:10)
[2021-04-14] MEDS: VENLAFAXINE HCL XR 150 MG CAPXR PO SCH (09:25)
--- NOTE | 2021-04-14 10:15 | Cardiology Consultation ---
Date of Consultation April 14, 2021 Assessment & Plan (1) Acute CVA (cerebrovascular accident): -the patient demonstrates a significant residual from a subacute CVA. -suspect he has been noncompliant with his Eliquis. -management per Neurology and hospitalist team. (2) CAD (coronary artery disease): -as above, CHULA in the LCx and the LAD in 2016 -overlapping CHULA placed within the LAD in stent stenosis in 2017. -continue medical management realizing his acute CVA. (3) Ischemic cardiomyopathy: -ejection fraction now down to 20%. -no cardiac catheterization at this time due to his acute CVA. (4) Atrial fibrillation: -now demonstrates a rapid ventricular response. -could reinitiate metoprolol succinate at his outpatient dose. -may need to use intravenous digoxin to slow his ventricular response. -currently on heparin as his anticoagulant. -suspect he has been noncompliant with his Eliquis. History of Present Illness Attending Physician: Omari Young DO History of Present Illness Mr. Delgado is a 70-year-old male admitted yesterday with a subacute CVA and atrial fibrillation with a rapid ventricular response. This consultation was ordered to assistance cardiac management. Of note, the patient is well known to me from the outpatient setting. History is obtained from chart review as the patient is somnolent this morning. Apparently, the patient developed a right facial droop and dysarthria on the evening prior to presentation. Finally, on the day of presentation, the patient's son was able to convince him to proceed to the emergency room for further care. On arrival here, CT scan of the head noted a right parietal cortex and left frontal lobe subacute infarction. The patient was also noted to be in atrial fibrillation with a rapid ventricular response. Compliance with his Eliquis was called into question. The patient has a longstanding history of coronary artery disease. He suffered a lateral MN in 2016 which required 2 drug-eluting stents to the LCx, and a staged procedure with 2 drug-eluting stents to the LAD. In 2017, he presented with an acute anterior wall MN and had occluded his LAD stents. He had overlapping stents placed within the LAD. Stents in the LCx were patent. The patient also carries a history of paroxysmal atrial fibrillation. He was previously on amiodarone, however, developed a significant transaminitis. Currently, patient is resting comfortably in bed without complaints. Past medical and surgical history 1. Coronary artery disease-see above 2. LCx CHULA times 2-2016 3. LAD CHULA x2, 2015, 2016 4. Ischemic cardiomyopathy -35-40%, August 2017 5. Paroxysmal atrial fibrillation 6. Hypertension 7. Moderate mitral regurgitation 8. Hypothyroidism 9. Memory/cognitive impairment-CVA, 2007 10. Obstructive sleep apnea 11. DJD 12. C-spine fusion 13. Cerebral aneurysm repair -2007 14. Umbilical hernia repair 15. Deviated nasal septum surgery 16. Intra-ocular lens implant Social history and lives with his Quit tobacco use 30 years ago Moderate alcohol intake Family history Noncontributory Review of systems A 10 review systems was negative except for that described above. Allergies Allergy/AdvReac Type Severity Reaction Status Date / Time donepezil Allergy Unknown Verified 04/12/21 16:49 duloxetine [From Cymbalta] Allergy Unknown Verified 04/12/21 16:49 Home Medications Medication Instructions Recorded Confirmed Type cholecalciferol (vitamin D3) 25 1,000 unit PO QAM 12/31/17 04/12/21 History mcg (1,000 unit) tablet (Vitamin D3) coenzyme Q10 100 mg tablet 100 mg PO QAM 12/31/17 04/12/21 History cyanocobalamin (vitamin B-12) 1,000 mcg PO PM 12/31/17 04/12/21 History 1,000 mcg tablet (Vitamin B-12) garlic 1,000 mg PO PM 12/31/17 04/12/21 History lisinopril 5 mg tablet 5 mg PO QAM 12/31/17 04/12/21 History nitroglycerin 0.4 mg sublingual 0.4 mg SUBLINGUAL UD PRN 12/31/17 04/12/21 History tablet (Nitrostat) thiamine HCl (vitamin B1) 100 mg 100 mg PO BID 12/31/17 04/12/21 History tablet vitamin E 100 unit capsule 100 unit PO DAILY 12/31/17 04/12/21 History metoprolol succinate 25 mg 25 mg PO QAM #1 tab 12/14/18 04/12/21 History tablet,extended release 24 hr omega-3 fatty acids 1,000 mg 1,000 mg PO QAM 01/18/19 04/12/21 History capsule (Fish Oil Concentrate) biotin 1 mg tablet 1 mg PO QAM tab 03/14/19 04/12/21 History atorvastatin 80 mg tablet 80 mg PO QPM #90 tab 10/03/20 04/12/21 Rx baclofen 10 mg tablet 10 mg PO BID 30 Days #60 tab 11/01/20 04/12/21 Rx modafinil 100 mg tablet 100 mg PO QAM #30 tab 12/02/20 04/12/21 Rx furosemide 20 mg tablet 20 mg PO QAM #30 tab 01/05/21 04/12/21 Rx ticagrelor 90 mg tablet (Brilinta) 90 mg PO BID #60 tab 01/27/21 04/12/21 Rx galantamine 24 mg 24 hr 24 mg PO QAM 30 Days #30 cap 02/24/21 04/12/21 Rx capsule,extended release venlafaxine 150 mg 150 mg PO DAILY #30 cap 02/24/21 04/12/21 Rx capsule,extended release 24 hr apixaban 5 mg tablet 5 mg PO BID tab 03/12/21 04/12/21 History levothyroxine 100 mcg tablet 100 mcg PO QAM #30 tab 03/27/21 04/12/21 Rx Patient History Medical History Acute on chronic systolic (congestive) heart failure Aneurysm BRAIN 2007- [facility] /UNSURE OF SIZE- FOLLOWS DR. BAKER Bronchitis Degenerative disc disease Elevated TSH Exposure to COVID-19 virus H/O arterial ischemic stroke residual cognitive impairment. APR 25 2008/ [facility] /PLACED ON BLOOD THINNER Hypertension Lumbar radiculopathy Myocardial Infarction 2015-[facility]- CATH- STENT- FOLLOWS WITH DR. BAKER Nasal septal deviation Osteoarthritis Sleep apnea NO CPAP Tinnitus Transaminitis Surgical History Aspiration into airway PER PATIENT, THIS HAPPENED AFTER E.T TUBE CAME OUT IN RECOVERY, THINKS IT WAS 2005, DOES NOT REMEMBER WHAT PROCEDURE BUT THINKS IT WAS AT [facility]- POOR HISTORIAN (HX STROKE) H/O hernia repair H/O neck surgery History of cardioversion [facility] 2017 History of colonoscopy History of deviated nasal septum WITH REPAIR History of left cataract surgery Hx of umbilical hernia repair S/P cardiac catheterization ONE @ [facility]/ ONE @ [place] - 2016 & 2017- STENTS- FROM [place] Family History Mother Diabetes Depression Unknown No problems noted. Father Myocardial infarction Grandfather (Paternal) Myocardial infarction Brother Myocardial infarction Sister Depression Other No family history of adverse response to anesthesia No family history of bleeding disorder Denies family history of Colon cancer Ovarian cancer Prostate cancer Breast cancer Social History Smoking Status: Never smoker Age Started Using Tobacco: 22; Age Quit Using Tobacco: 37; Cigarettes Per Day: 30 YEARS AGO; Second Hand Exposure: No; Do You Dip or Chew Tobacco: No; Tobacco Cessation Education Requested by Patient: No Hx Alcohol Use: Yes Alcohol type: hard liquor Alcohol Intake Frequency: 2-3 x/Week Hx Substance Use: No Preferred Language: Lao Communication Ability: Effective Visual Impairment: No Limitations Hearing Ability: Normal Loan Operations Specialist Required: No Beliefs That Will Affect Care: None marital status: Current Living Situation: Spouse current occupational status: retired and disabled Other Information That Helps Us Care for You: No Feels Safe at Home: Yes Safety Concerns: Feels Safe At This Time Childhood Exposure to Second-Hand Smoke: Yes Dental Care, Regularly: Yes Physical Activity Frequency: Daily Seatbelt Use: always Sunscreen Use: No Assistive Devices: Glasses Physical Exam Physical Exam: In general this is a well-developed well-nourished white male in no acute distress. HEENT exam is negative. Neck is supple with full carotid upstrokes. There are no carotid bruits. No JVD. There is no thyromegaly. Cardiovascular exam reveals a regular rhythm with a normal S1 and S2. No S3, S4, or murmurs are noted. Lungs are clear without rales, rhonchi, or wheezes. Abdomen is soft and nontender without bruits. Extremities reveal intact radial artery and posterior tibial pulses bilaterally. There is no peripheral edema. Results & Data ([facility]) Vital Signs (Past 12 Hours) Vital Signs Temp Pulse Pulse Resp BP BP BP 04/14/21 08:38 123 H 112/69 04/14/21 07:48 36.5 C 96 H 24 112/69 04/14/21 07:37 36.5 C 157 H 16 04/14/21 02:49 87 20 124/98 04/13/21 23:00 04/13/21 22:52 124 H 122/80 04/13/21 22:51 36.4 C L 124 H 18 122/80 Pulse Ox Pulse Ox 04/14/21 08:38 04/14/21 07:48 91 04/14/21 07:37 92 04/14/21 02:49 90 04/13/21 23:00 95 04/13/21 22:52 04/13/21 22:51 97 Laboratory Results CBC notes hemoglobin 14.7, crit 45.2, white count 9.7, platelet count [id number]. Electrolytes note a sodium of 141, potassium 5.0, chloride 107, bicarb 27, BUN 21, creatinine 1.6, glucose of 121. Troponin I levels mildly elevated 0.062. TSH is low at 0.031. LDL cholesterol 63 with an HDL of 36. Diagnostic Findings EKG notes atrial fibrillation with a rapid ventricular response. There is a left axis deviation and nonspecific T-wave abnormality. Chest x-ray shows cardiomegaly. Echocardiogram performed yesterday noted severe left ventricular dysfunction with ejection fraction of 20%. The anterior wall was akinetic with other jiménez being hypokinetic. There is moderate to severe mitral regurgitation. CT scan head notes a right parietal cortex, and left frontal lobe subacute infarctions. There is a high-grade stenosis of the right vertebral artery. PG Care Time/CCT Total # of Minutes Spent Total Time Spent with Patient: Total time spent is greater than 50% in coordination of care (as documented) at patient's floor/unit and/or counseling patient: Coding Level of Care Code 58775 Initial Inpt Care Lvl 3 Diagnoses Acute CVA (cerebrovascular accident) I63.9 CAD (coronary artery disease) I25.118 Coronary Disease-Associated Artery/Lesion type: [place] artery [place] vs. transplanted heart: [place] heart Associated angina: with stable angina Ischemic cardiomyopathy I25.5 Atrial fibrillation I48.91 (1) CAD (coronary artery disease) Coronary Disease-Associated Artery/Lesion type: [place] artery [place] vs. transplanted heart: [place]bud heart Associated angina: with stable angina Qualified Code(s): I25.118 - Atherosclerotic heart disease of [place] coronary artery with other forms of angina pectoris
[2021-04-14] MEDS: HEPARIN SODIUM/DEXTROSE 25,000 UNITS/500 ML BAG IV SCH ×3 (10:34→12:57)
[2021-04-14] MEDS ORDERED: METOPROLOL TARTRATE 1 MG/ML VIAL IV SCH (12:00)
[2021-04-14] MEDS ORDERED: DIGOXIN 250 MCG in SYRINGE 9 ML IV STA (12:11)
[2021-04-14] MEDS ORDERED: ENOXAPARIN 1 MG/KG SQ SCH (12:15)
[2021-04-14] MEDS: METOPROLOL SUCC 25MG EXT REL TAB PO SCH (12:59)
[2021-04-14] MEDS: ENOXAPARIN 100 MG/1ML SYR SQ SCH (12:59)
[2021-04-14 13:33] LABS: Partial Thromboplastin Ratio 1.6; Partial Thromboplastin Time 42.7 Seconds (21.0-31.0)
[2021-04-14] MEDS ORDERED: DIGOXIN 125 MCG in SYRINGE 9.5 ML IV ONE (18:00)
[2021-04-14] MEDS: ATORVASTATIN 40 MG TAB PO SCH (20:10)
[2021-04-15] MEDS: ENOXAPARIN 100 MG/1ML SYR SQ SCH ×2 (00:03→13:11)
[2021-04-15 06:08] LABS: Basophils # (auto) 0.04 K/uL (0-0.2); Basophils % (auto) 0.4 %; Eosinophils # (auto) 0.27 K/uL (0-0.5); Eosinophils % (auto) 2.9 %; Hematocrit (blood only) 42.8 % (42-52); Hemoglobin 13.9 g/dL (14.0-18.0); Immature Granulocytes # (auto) 0.05 K/uL (0.00-0.02); Immature Granulocytes % (auto) 0.5 %; Lymphocytes # (auto) 1.75 K/uL (1.2-3.4); Lymphocytes % (auto) 18.6 %; Mean Corpuscular Hemoglobin 31.4 pg (25-34); Mean Corpuscular Hgb Conc 32.5 g/dL (32-36); Mean Corpuscular Volume 96.8 fL (80-100); Monocytes # (auto) 0.75 K/uL (0.11-0.59); Neutrophils # (auto) 6.54 K/uL (1.4-6.5); Neutrophils % (auto) 69.6 %; Platelet Count 304 K/uL (130-400); RDW Coefficient of Variation 13.4 % (11.5-14.5); RDW Standard Deviation 47.1 fL (36.4-46.3); Red Blood Count 4.42 M/uL (4.7-6.1)
[2021-04-15 06:39] LABS: BUN Creatinine Ratio 15.1 (10-20); Calcium 9.2 mg/dl (8.5-10.1); Creatinine Clr Calc Pharmacy 52.3 ml/min; Est GFR (African American) 60.2 ml/min; Potassium 4.8 mmol/L (3.5-5.1)
[2021-04-15] MEDS: FOLIC ACID 1 MG in SYRINGE 9.8 ML IV SCH (08:13)
[2021-04-15] MEDS: THIAMINE HCL 100 MG in SYRINGE 9 ML IV SCH (08:13)
[2021-04-15] MEDS: NORMOSOL-R 1,000 ML IV SCH ×2 (08:13→21:09)
[2021-04-15] MEDS: TICAGRELOR 90 MG TAB PO SCH ×2 (08:14→20:47)
[2021-04-15] MEDS: GALANTAMINE HYDROBROMIDE 8 MG CAPER PO SCH (08:14)
[2021-04-15] MEDS: VENLAFAXINE HCL XR 150 MG CAPXR PO SCH (08:14)
[2021-04-15] MEDS: METOPROLOL SUCC 25MG EXT REL TAB PO SCH (08:15)
--- NOTE | 2021-04-15 08:44 | Neurology Progress Note ---
Date of Service April 15, 2021 Assessment & Plan (1) Acute CVA (cerebrovascular accident): (2) Alcohol withdrawal: (3) Mild cognitive impairment: (4) Atrial fibrillation: (5) Vertebral artery stenosis: Plan: This patient had 2 acute to subacute strokes, 1 in the right high parietal head region, and 1 in the left posterior frontal region, which have given him some right facial droop and dysarthria. I suspect that the left posterior frontal stroke was on April 11. The 1 on the right probably occurred sometime within the last week. The patient has a background of excessive daytime somnolence and severe sleep apnea as well as atrial fibrillation. There was concern he was not taking his apixaban regularly. He was likely experiencing alcoholic withdrawal symptoms 04/14. This is much improved today. He still is a little bit tachycardic. The strokes are likely embolic from the heart. He does have severe right vertebral stenosis and some small vessel ischemic disease seen on MRI. Recommendations: 1. continue apixaban as you are doing. 2. Add 81 milligram aspirin daily to protect from small vessel ischemic disease. 3. continue protocol for alcohol withdrawal as you are doing. 4. consider continuing modafinil for his daytime sleepiness. 5. increase activity as able and obtain physical, occupational, and speech therapy consult. overall, I spent a total of 35 minutes with this case including review of records, direct evaluation of the patient at bedside, and discussion of the case with the patient and RN at bedside, as well as Dr. Young, including differential diagnosis and treatment options. Admission and Anticipated Discharge Date Admission Date: April 12, 2021 Subjective the patient feels very come and without pain this morning. He has little recall of early yesterday. He has no headache, dizziness, or anxiety this morning. Nursing reports no events overnight. Chem profile and CBC yesterday were unremarkable. Blood pressure is 105/72 and he is afebrile. Pulse is between 90 and 100. Results & Data ([facility]) Vital Signs (Past 12 Hours) Vital Signs Temp Pulse Pulse Resp BP BP Pulse Ox 04/15/21 07:39 36.4 C L 108 H 18 105/72 93 04/15/21 07:00 105 H 04/15/21 04:56 36.7 C 97 H 18 108/78 98 04/15/21 00:11 36.6 C 104 H 14 102/68 97 04/14/21 23:00 Pulse Ox 04/15/21 07:39 04/15/21 07:00 04/15/21 04:56 04/15/21 00:11 04/14/21 23:00 95 Exam (Neuro) Physical Exam: he is sitting up in bed calmly eating his breakfast. He answers questions and follows one-step commands fairly well. He is pleasant and cooperative. Extraocular eye muscles are intact without nystagmus. He has a dense facial foreign op on the right. Coordination is normal in the arms without tremor or ataxia. He has no drift. Strength is 5/5 in all major muscle groups in the arms and legs both proximally and distally diffusely. PG Care Time/CCT Total # of Minutes Spent Total Time Spent with Patient: Total time spent is greater than 50% in coordination of care (as documented) at patient's floor/unit and/or counseling patient: Coding Level of Care Code 05483 Subseq Hosp Care Lvl 3 Diagnoses Acute CVA (cerebrovascular accident) I63.9 Alcohol withdrawal F10.239 Mild cognitive impairment G31.84 Atrial fibrillation I48.91 Vertebral artery stenosis I65.09 Time Spent (min) 35
--- NOTE | 2021-04-15 10:02 | Hospitalist Progress Note ---
Date of Service April 15, 2021 Assessment & Plan (1) Acute CVA (cerebrovascular accident): Plan: 70 yo WM with a history of atrial fibrillation on chronic Eliquis presents with subacute CVA manifested by R facial droop and slurred speech - Suspect cardioembolic - likely missed doses of Eliquis, change back to Eliquis this evening, 5mg BID will add aspirin 81mg daily - MRI brain without IV contrast: Left frontal and right parietal lobe infarcts as above. likely subacute - TTE performed, EF is 20% - Lipid panel performed, results reviewed, well controlled=LDL 63, HDL 36, TG 80 - HbA1c is 5.3% - PT/OT eval - Consult neurology - discussed with Dr. Conklin - Low dose Lisinopril held for permissive HTN stat CT head on 04/14 due to increased lethargy: no hemorrhagic conversion, no further evolution of stroke bed (2) Altered mental state: Plan: lethargic, difficult to arouse on 04/14, suspect it was due to Ativan he got the night prior now he is awake/alert and oriented, cooperative work up on 04/14: CT head with no acute changes ammonia, lactic acid and ABG normal Cr is 1.6 (3) Atrial fibrillation: Plan: RVR again today increased Toprol to 50mg AM had to give Digoxin 125mcg IV and Lopressor 5mg IV got his Digoxin 125mcg PO in afternoon will give Toprol 25mg this evening since he is still RVR on Eliquis (4) Acute kidney injury: Plan: Cr up to 1.6 on 04/14, got Lasix 20mg IV on 04/13 Cr down to 1.36, eating and drinking better, electrolytes stable (5) Alcohol withdrawal: Plan: less inclined to think he is in withdraw he is calm and cooperative and oriented today hold on further Ativan (6) Ischemic cardiomyopathy: Plan: - Discussed case with cardiology, routinely sees Dr. Macario, last visit 09/2020 - Last echo 2017, LVEF 35-40%, now EF <20% -no plans for heart cath today, d/w Dr. Macario, allow him to eat monitor breathing closely with giving fluids but his Cr is up at 1.6 and not drinking much (7) CAD (coronary artery disease): Plan: - No current chest pain or shortness of breath to suggest ACS - Elevated troponin on admission suggestive of demand ischemia - LMI, CHULA x2 LCX; staged LAD CHULA x2, May 2015; AMI, occluded stents, overlapping CHULA, March 2017 - Resume Brilinta, Atorvastatin, Toprol, DONYA held to allow permissive HTN (8) Hypertension: Plan: - Hold DONYA as noted above (9) Hypothyroidism: Plan: - Appears to be overtreated and recently decreased last month from 112 to 100 mcg PO daily due to undetectable TSH. - Repeat TSH improving but still appears to be overtreated, reduce dose to 75 mcg po daily starting 04/14 (10) Mild cognitive impairment: Plan: - Resume galantamine (11) Chronic systolic heart failure: Plan: - With severe LV dysfunction, see above - Resume Lasix 20mg daily, will give a one time dose of IV Lasix 20mg x1 now - Cap IVF (which were initiated by admitting provider while pt was NPO) (12) Moderate obstructive sleep apnea: Plan: - Notably history of this however not on CPAP @ home Plan: VTE Prophylaxis - heparin IV drip as above Diet - heart healthy, easy to chew, fluid and salt restriction PT/OT eval to determine appropriate disposition Updated patient's son, Terry, at bedside Admission and Anticipated Discharge Date Admission Date: April 12, 2021 Subjective patient much better today, he is alert, conversing normally, c/o right facial droop "how do I get rid of this?" discussed getting therapy, he agrees issues with his HR all day, very sensitive, goes up with any activity, PT/OT made him jump to 150's gave Digoxin 125mcg IV and Lopressor 5mg IV, HR still in 120-130s at times will give extra Toprol 25mg this evening eating and drinking well, no dyspnea he does not remember much of yesterday, could be an adverse reaction to the Ativan he received discussed with Dr. Conklin as well as david cardiology Review of Systems Review of Systems: All systems reviewed & are unremarkable except as noted in Subjective Physical Exam Physical Exam: General: well developed, well nourished, awake, no distress Neck: supple, trachea midline, normal thyroid Lungs: clear to auscultation bilaterally, normal respiratory effort, no accessory muscle use, no distress Heart: tachycardic, irreg irreg S1 and S2, no murmur, peripheral pulses normal, capillary refill normal, no edema Abdomen: soft, NT, ND, + BS, no hepatomegaly, normal to percussion Extremities: normal in appearance, no cyanosis, no petechiae, strength is 5/5 bilaterally Neuro: awake and follows commands, moves all extremities, + right facial droop and slurred speech otherwise CN II-XII intact, no pronator drift Skin: warm, dry, no rash, normal turgor Psych: AAOX3, cooperative, euthymic affect Results & Data Results & Data ([facility]) Vital Signs (Past 12 Hours) Vital Signs Temp Pulse Pulse Resp BP BP Pulse Ox 04/15/21 07:39 36.4 C L 108 H 18 105/72 93 04/15/21 07:00 105 H 04/15/21 04:56 36.7 C 97 H 18 108/78 98 04/15/21 00:11 36.6 C 104 H 14 102/68 97 04/14/21 23:00 Pulse Ox 04/15/21 07:39 04/15/21 07:00 04/15/21 04:56 04/15/21 00:11 04/14/21 23:00 95 Laboratory Results Laboratory Results - last 24 hr 04/14/21 04/15/21 04/15/21 13:10 05:19 05:19 WBC 9.40 RBC 4.42 L Hgb 13.9 L Hct 42.8 MCV 96.8 MCH 31.4 MCHC 32.5 RDW Std Deviation 47.1 H RDW Coeff of Sonja 13.4 Plt Count 304 MPV 11.0 H Immature Gran % (Auto) 0.5 Neut % (Auto) 69.6 Lymph % (Auto) 18.6 [place]land % (Auto) 8.0 Eos % (Auto) 2.9 Baso % (Auto) 0.4 Neut # (Auto) 6.54 H Lymph # (Auto) 1.75 [place] # (Auto) 0.75 H Eos # (Auto) 0.27 Baso # (Auto) 0.04 Immature Gran # (Auto) 0.05 H APTT 42.7 H PTT Ratio 1.6 Sodium 143 Potassium 4.8 Chloride 109 H Carbon Dioxide 29 Anion Gap 5.0 BUN 21 H Creatinine 1.36 Est Cr Clr Drug Dosing 52.3 Est GFR ( Amer) 60.2 Est GFR (Non-Af Amer) 52.0 BUN/Creatinine Ratio 15.1 Glucose 77 Calcium 9.2 Medications Administered Current Inpatient Medications Atorvastatin Calcium (Atorvastatin 40 Mg Tab) 80 mg PO QPM [facility] Stop: 05/13/21 20:59 Last Admin: 04/14/21 20:10 Dose: 80 mg Documented by: Digoxin (Digoxin 0.125 Mg Tab) 0.125 mg PO DAILY@1600 [facility] Stop: 05/15/21 15:59 Enoxaparin Sodium (Enoxaparin 100 Mg/1ml Syr) 90 mg SQ Q12H [facility] Stop: 05/14/21 12:29 Last Admin: 04/15/21 00:03 Dose: 90 mg Documented by: Galantamine Hydrobromide (Galantamine Hydrobromide 8 Mg Caper) 24 mg PO [facility] Stop: 05/14/21 08:59 Last Admin: 04/15/21 08:14 Dose: 24 mg Documented by: Folic Acid 1 mg/ Syringe 10 mls @ 5 mls/min IV [facility] Stop: 05/14/21 08:59 Last Admin: 04/15/21 08:13 Dose: 5 mls/min Documented by: Thiamine HCl 100 mg/ Syringe 10 mls @ 2 mls/min IV [facility] Stop: 05/14/21 08:59 Last Admin: 04/15/21 08:13 Dose: 2 mls/min Documented by: Lorazepam (Ativan) 1 mg in 2 mls @ 2 mls/min IV UD PRN; Protocol PRN Reason: EtOH Withdrawl AWSS Score 6,7 Stop: 05/14/21 01:18 Lorazepam (Ativan) 2 mg in 4 mls @ 4 mls/min IV UD PRN; Protocol PRN Reason: EtOH Withdrawl AWSS Score 8,9 Stop: 05/14/21 01:18 Last Admin: 04/14/21 01:32 Dose: 4 mls/min Documented by: Lorazepam (Ativan) 3 mg in 6 mls @ 4 mls/min IV ONCE PRN; Protocol PRN Reason: EtOH Withdrawl AWSS Score >=10 Stop: 05/14/21 01:18 Parenteral Electrolytes (Normosol-R) 1,000 mls @ 80 mls/hr IV .[id number] [facility] Stop: 05/14/21 07:59 Last Admin: 04/15/21 08:13 Dose: 80 mls/hr Documented by: Metoprolol Succinate (Metoprolol Succ 25mg Ext Rel Tab) 25 mg PO QAM [facility] Stop: 05/14/21 12:29 Last Admin: 04/15/21 08:15 Dose: 25 mg Documented by: Miscellaneous Information (Pharmacist Discharge Med Rec Consult) 1 ea N/A UD PRN PRN Reason: Consult Stop: 05/12/21 22:53 Ticagrelor (Ticagrelor 90 Mg Tab) 90 mg PO BID [facility] Stop: 05/13/21 20:59 Last Admin: 04/15/21 08:14 Dose: 90 mg Documented by: Venlafaxine HCl (Venlafaxine Hcl Xr 150 Mg Capxr) 150 mg PO DAILY [facility] Stop: 05/14/21 08:59 Last Admin: 04/15/21 08:14 Dose: 150 mg Documented by: PG Care Time/CCT Total # of Minutes Spent Total Time Spent with Patient: Total time spent is greater than 50% in coordination of care (as documented) at patient's floor/unit and/or counseling patient: Coding Level of Care Code 99449 Subseq Hosp Care Lvl 3 Diagnoses Acute CVA (cerebrovascular accident) I63.9 Altered mental state R41.82 Atrial fibrillation I48.91 Acute kidney injury N17.9 Alcohol withdrawal F10.239 Ischemic cardiomyopathy I25.5 CAD (coronary artery disease) I25.118 Associated angina: with stable angina Coronary Disease-Associated Artery/Lesion type: [place] artery [place] vs. transplanted heart: [place] heart Hypertension I10 Hypothyroidism E03.9 Mild cognitive impairment G31.84 Chronic systolic heart failure I50.22 Moderate obstructive sleep apnea G47.33 (1) CAD (coronary artery disease) Associated angina: with stable angina Coronary Disease-Associated Artery/Lesion type: [place] artery [place] vs. transplanted heart: [place] heart Qualified Code(s): I25.118 - Atherosclerotic heart disease of [place] coronary artery with other forms of angina pectoris
[2021-04-15] MEDS ORDERED: METOPROLOL TARTRATE 1 MG/ML VIAL IV STA ×2 (11:03→19:09)
[2021-04-15] MEDS ORDERED: DIGOXIN 125 MCG in SYRINGE 9.5 ML IV STA (11:03)
--- NOTE | 2021-04-15 12:48 | Cardiology Progress Note ---
Date of Service April 15, 2021 Assessment & Plan (1) Acute CVA (cerebrovascular accident): Plan: -the patient demonstrates a significant residual from his subacute CVA. -he has been noncompliant with his Eliquis. -management per Neurology and hospitalist team. (2) CAD (coronary artery disease): Plan: -CHULA in the LCx and the LAD in 2016 -overlapping CHULA placed within the LAD in stent stenosis in 2017. -continue medical management realizing his acute CVA. (3) Ischemic cardiomyopathy: Plan: -ejection fraction now down to 20%. -no cardiac catheterization at this time due to his acute CVA. (4) Atrial fibrillation: Plan: -still with a rapid ventricular response. -metoprolol succinate started yesterday. -consider increasing metoprolol succinate dose. -continue digoxin. -currently on heparin as his anticoagulant. Admission and Anticipated Discharge Date Admission Date: April 12, 2021 Subjective The patient is resting comfortably in bed without complaints of chest pain, dyspnea, or palpitations. He explains that I had a stroke. He admits to noncompliance with his Eliquis. Physical Exam Physical Exam: In general this is a well-developed well-nourished white male in no acute distress. HEENT exam is negative. Neck is supple with full carotid upstrokes. There are no carotid bruits. No JVD. There is no thyromegaly. Cardiovascular exam reveals an irregular rhythm. No S3 or murmurs are noted. Lungs are clear without rales, rhonchi, or wheezes. Abdomen is soft and nontender without bruits. Extremities reveal intact radial artery and posterior tibial pulses bilaterally. There is no peripheral edema. Results & Data ([facility]) Vital Signs (Past 12 Hours) Vital Signs Temp Pulse Pulse Resp BP BP BP 04/15/21 12:09 120 H 04/15/21 11:27 99 H 113/78 04/15/21 10:14 99 H 20 120/77 04/15/21 07:39 36.4 C L 108 H 18 105/72 04/15/21 07:00 105 H 04/15/21 04:56 36.7 C 97 H 18 108/78 Pulse Ox 04/15/21 12:09 04/15/21 11:27 04/15/21 10:14 95 04/15/21 07:39 93 04/15/21 07:00 04/15/21 04:56 98 Diagnostic Findings cup setter lockstitch notes atrial fibrillation with a heart rate varying from 100- 140 beats per minute. PG Care Time/CCT Total # of Minutes Spent Total Time Spent with Patient: Total time spent is greater than 50% in coordination of care (as documented) at patient's floor/unit and/or counseling patient: Coding Level of Care Code 14624 Subseq Hosp Care Lvl 3 Diagnoses Acute CVA (cerebrovascular accident) I63.9 CAD (coronary artery disease) I25.118 Coronary Disease-Associated Artery/Lesion type: [place] artery [place] vs. transplanted heart: [place] heart Associated angina: with stable angina Ischemic cardiomyopathy I25.5 Atrial fibrillation I48.91 (1) CAD (coronary artery disease) Coronary Disease-Associated Artery/Lesion type: [place] artery [place] vs. transplanted heart: [place] heart Associated angina: with stable angina Qualified Code(s): I25.118 - Atherosclerotic heart disease of [place] coronary artery with other forms of angina pectoris
[2021-04-15] MEDS: ASPIRIN 81 MG ECTAB PO SCH (17:32)
[2021-04-15] MEDS: DIGOXIN 0.125 MG TAB PO SCH (17:32)
[2021-04-15] MEDS ORDERED: METOPROLOL SUCC 25MG EXT REL TAB PO ONE ×2 (19:30)
[2021-04-15] MEDS: APIXABAN 5 MG TABLET PO SCH (20:47)
[2021-04-15] MEDS: ATORVASTATIN 40 MG TAB PO SCH (20:47)
[2021-04-16 00:27] LABS: 18KDIGG Band REACTIVE; 23KDIGG Band REACTIVE; 23KDIGM Band NON-REACTIVE; 28KDIGG Band NON-REACTIVE; 30KDIGG Band NON-REACTIVE; 39KDIGG Band REACTIVE; 39KDIGM Band NON-REACTIVE; 41KDIGG Band REACTIVE; 41KDIGM Band NON-REACTIVE; 45KDIGG Band NON-REACTIVE; 58KDIGG Band REACTIVE; 66KDIGG Band NON-REACTIVE; 93KDIGG Band REACTIVE; Lyme Antibodies, WB IgG POSITIVE (NEGATIVE); Lyme Antibodies, WB IgM NEGATIVE (NEGATIVE)
--- NOTE | 2021-04-16 06:10 | Electrocardiogram Report ---
Test Reason : Blood Pressure : / mmHG Vent. Rate : 113 BPM Atrial Rate : 174 BPM P-R Int : 000 ms QRS Dur : 090 ms QT Int : 348 ms P-R-T Axes : 000 -25 038 degrees QTc Int : 477 ms Atrial fibrillation with rapid ventricular response Nonspecific T wave abnormality Abnormal ECG When compared with ECG of 12-APR-2021 15:50, No significant change was found Confirmed by Burton Russell ([id number]) on 04/16/2021 6:10:07 AM Referred By: REFERRED SELF Confirmed By:Burton Russell
--- NOTE | 2021-04-16 06:10 | Electrocardiogram Report ---
Test Reason : Blood Pressure : / mmHG Vent. Rate : 118 BPM Atrial Rate : 085 BPM P-R Int : 000 ms QRS Dur : 086 ms QT Int : 346 ms P-R-T Axes : 000 -13 -78 degrees QTc Int : 484 ms Atrial fibrillation with rapid ventricular response Low voltage QRS Nonspecific T wave abnormality Prolonged QT Abnormal ECG When compared with ECG of 12-APR-2021 15:50, No significant change was found Confirmed by Burton Russell ([id number]) on 04/16/2021 6:09:52 AM Referred By: REFERRED SELF Confirmed By:Burton Russell
[2021-04-16] MEDS: THIAMINE HCL 100 MG in SYRINGE 9 ML IV SCH (07:40)
[2021-04-16] MEDS: FOLIC ACID 1 MG in SYRINGE 9.8 ML IV SCH (07:40)
[2021-04-16] MEDS: GALANTAMINE HYDROBROMIDE 8 MG CAPER PO SCH (07:40)
[2021-04-16] MEDS: ASPIRIN 81 MG ECTAB PO SCH (07:40)
[2021-04-16] MEDS: APIXABAN 5 MG TABLET PO SCH ×2 (07:40→20:29)
[2021-04-16] MEDS: TICAGRELOR 90 MG TAB PO SCH ×2 (07:41→20:29)
[2021-04-16] MEDS: VENLAFAXINE HCL XR 150 MG CAPXR PO SCH (07:41)
[2021-04-16] MEDS: METOPROLOL SUCC 50MG EXT REL TAB PO SCH (08:20)
[2021-04-16] MEDS: NORMOSOL-R 1,000 ML IV SCH (10:08)
--- NOTE | 2021-04-16 12:20 | Hospitalist Progress Note ---
Date of Service April 16, 2021 Assessment & Plan (1) Acute CVA (cerebrovascular accident): Plan: 70 yo WM with a history of atrial fibrillation on chronic Eliquis presents with subacute CVA manifested by R facial droop and slurred speech - Suspect cardioembolic - likely missed doses of Eliquis, change back to Eliquis this evening, 5mg BID will add aspirin 81mg daily - MRI brain without IV contrast: Left frontal and right parietal lobe infarcts as above. likely subacute - TTE performed, EF is 20% - Lipid panel performed, results reviewed, well controlled=LDL 63, HDL 36, TG 80 - HbA1c is 5.3% - PT/OT eval - Consult neurology - discussed with Dr. Conklin - Low dose Lisinopril held for permissive HTN stat CT head on 04/14 due to increased lethargy: no hemorrhagic conversion, no further evolution of stroke bed did well with PT/OT, can go home tomorrow, will stay with his son (2) Altered mental state: Plan: lethargic, difficult to arouse on 04/14, suspect it was due to Ativan he got the night prior now he is awake/alert and oriented, cooperative work up on 04/14: CT head with no acute changes ammonia, lactic acid and ABG normal Cr down to normal (3) Atrial fibrillation: Plan: rates better today, < 100 increased Toprol to 50mg AM and 25mg qPM got his Digoxin 125mcg PO in afternoon on Eliquis follow up with Dr. Macario in a week or two (4) Acute kidney injury: Plan: Cr up to 1.6 on 04/14, got Lasix 20mg IV on 04/13 Cr down to 1.36, eating and drinking better, electrolytes stable (5) Alcohol withdrawal: Plan: less inclined to think he is in withdraw he is calm and cooperative and oriented today hold on further Ativan (6) Ischemic cardiomyopathy: Plan: - Discussed case with cardiology, routinely sees Dr. Macario, last visit 09/2020 - Last echo 2017, LVEF 35-40%, now EF <20% -no plans for heart cath today, d/w Dr. Macario, allow him to eat monitor breathing closely with giving fluids but his Cr is up at 1.6 and not drinking much (7) CAD (coronary artery disease): Plan: - No current chest pain or shortness of breath to suggest ACS - Elevated troponin on admission suggestive of demand ischemia - LMI, CHULA x2 LCX; staged LAD CHULA x2, May 2015; AMI, occluded stents, overlapping CHULA, March 2017 - Resume Brilinta, Atorvastatin, Toprol, DONYA held to allow permissive HTN (8) Hypertension: Plan: - Hold DONYA as noted above (9) Hypothyroidism: Plan: - Appears to be overtreated and recently decreased last month from 112 to 100 mcg PO daily due to undetectable TSH. - Repeat TSH improving but still appears to be overtreated, reduce dose to 75 mcg po daily starting 04/14 (10) Mild cognitive impairment: Plan: - Resume galantamine (11) Chronic systolic heart failure: Plan: - With severe LV dysfunction, see above - Resume Lasix 20mg daily, will give a one time dose of IV Lasix 20mg x1 now - Cap IVF (which were initiated by admitting provider while pt was NPO) (12) Moderate obstructive sleep apnea: Plan: - Notably history of this however not on CPAP @ home Plan: VTE Prophylaxis - Eliquis Diet - heart healthy, easy to chew, fluid and salt restriction PT/OT : strong enough to go home Admission and Anticipated Discharge Date Admission Date: April 12, 2021 Subjective patient doing so much better, he is alert, conversive, no issues at all HR is better, < 100 all day eating well, did great with PT/OT, scored 23 on both, safe to go home d/w son at the bedside, plan to discharge to home, he will stay with his son for a short period of time Review of Systems Review of Systems: All systems reviewed & are unremarkable except as noted in Subjective Physical Exam Physical Exam: General: well developed, well nourished, awake, no distress Neck: supple, trachea midline, normal thyroid Lungs: clear to auscultation bilaterally, normal respiratory effort, no accessory muscle use, no distress Heart: tachycardic, irreg irreg S1 and S2, no murmur, peripheral pulses normal, capillary refill normal, no edema Abdomen: soft, NT, ND, + BS, no hepatomegaly, normal to percussion Extremities: normal in appearance, no cyanosis, no petechiae, strength is 5/5 bilaterally Neuro: awake and follows commands, moves all extremities, + right facial droop and slurred speech otherwise CN II-XII intact, no pronator drift Skin: warm, dry, no rash, normal turgor Psych: AAOX3, cooperative, euthymic affect Results & Data Results & Data ([facility]) Vital Signs (Past 12 Hours) Vital Signs Temp Pulse Pulse Resp BP BP Pulse Ox 04/16/21 07:10 36.5 C 70 20 117/72 95 04/16/21 07:00 67 04/16/21 04:14 36.4 C L 78 20 109/62 96 Laboratory Results Laboratory Results - last 24 hr 04/12/21 15:46 Lyme IgG (Western Blot) POSITIVE A Lyme IgG 18 kDa Band REACTIVE A Lyme IgG 23 kDa Band REACTIVE A Lyme IgG 28 kDa Band NON-REACTIVE Lyme IgG 30 kDa Band NON-REACTIVE Lyme IgG 39 kDa Band REACTIVE A [place]yme IgG 41 kDa Band REACTIVE A [place]yme IgG 45 kDa Band NON-REACTIVE Lyme IgG 58 kDa Band REACTIVE A [place]yme IgG 66 kDa Band NON-REACTIVE Lyme IgG 93 kDa Band REACTIVE A Lyme IgM Ab (WB) NEGATIVE Lyme IgM 23 kDa Band NON-REACTIVE Lyme IgM 39 kDa Band NON-REACTIVE Lyme IgM 41 kDa Band NON-REACTIVE Medications Administered Current Inpatient Medications Apixaban (Apixaban 5 Mg Tablet) 5 mg PO BID [facility] Stop: 05/15/21 20:59 Last Admin: 04/16/21 07:40 Dose: 5 mg Documented by: Aspirin (Aspirin 81 Mg Ectab) 81 mg PO DAILY [facility] Stop: 05/15/21 16:29 Last Admin: 04/16/21 07:40 Dose: 81 mg Documented by: Atorvastatin Calcium (Atorvastatin 40 Mg Tab) 80 mg PO QPM [facility] Stop: 05/13/21 20:59 Last Admin: 04/15/21 20:47 Dose: 80 mg Documented by: Digoxin (Digoxin 0.125 Mg Tab) 0.125 mg PO DAILY@1600 [facility] Stop: 05/15/21 15:59 Last Admin: 04/15/21 17:32 Dose: 0.125 mg Documented by: Galantamine Hydrobromide (Galantamine Hydrobromide 8 Mg Caper) 24 mg PO QAM [facility] Stop: 05/14/21 08:59 Last Admin: 04/16/21 07:40 Dose: 24 mg Documented by: Folic Acid 1 mg/ Syringe 10 mls @ 5 mls[facility] [place]: 05/14/21 08:59 Last Admin: 04/16/21 07:40 Dose: 5 mls/min Documented by: Thiamine HCl 100 mg/ Syringe 10 mls @ 2 mls/min IV QAM [facility] Stop: 05/14/21 08:59 Last Admin: 04/16/21 07:40 Dose: 2 mls/min Documented by: Lorazepam (Ativan) 1 mg in 2 mls @ 2 mls/min IV UD PRN; Protocol PRN Reason: EtOH Withdrawl AWSS Score 6,7 Stop: 05/14/21 01:18 Lorazepam (Ativan) 2 mg in 4 mls @ 4 mls/min IV UD PRN; Protocol PRN Reason: EtOH Withdrawl AWSS Score 8,9 Stop: 05/14/21 01:18 Last Admin: 04/14/21 01:32 Dose: 4 mls/min Documented by: Lorazepam (Ativan) 3 mg in 6 mls @ 4 mls/min IV ONCE PRN; Protocol PRN Reason: EtOH Withdrawl AWSS Score >=10 Stop: 05/14/21 01:18 Parenteral Electrolytes (Normosol-R) 1,000 mls @ 80 mls/hr IV .[id number] [facility] Stop: 05/14/21 07:59 Last Admin: 04/16/21 10:08 Dose: 80 mls/hr Documented by: Metoprolol Succinate (Metoprolol Succ 50mg Ext Rel Tab) 50 mg PO [facility] Stop: 05/16/21 08:59 Last Admin: 04/16/21 08:20 Dose: 50 mg Documented by: Miscellaneous Information (Pharmacist Discharge Med Rec Consult) 1 ea N/A UD PRN PRN Reason: Consult Stop: 05/12/21 22:53 Ticagrelor (Ticagrelor 90 Mg Tab) 90 mg PO BID [facility] Stop: 05/13/21 20:59 Last Admin: 04/16/21 07:41 Dose: 90 mg Documented by: Venlafaxine HCl (Venlafaxine Hcl Xr 150 Mg Capxr) 150 mg PO DAILY [facility] Stop: 05/14/21 08:59 Last Admin: 04/16/21 07:41 Dose: 150 mg Documented by: PG Care Time/CCT Total # of Minutes Spent Total Time Spent with Patient: Total time spent is greater than 50% in coordination of care (as documented) at patient's floor/unit and/or counseling patient: Coding Level of Care Code 87478 Subseq Hosp Care Lvl 3 Diagnoses Acute CVA (cerebrovascular accident) I63.9 Altered mental state R41.82 Atrial fibrillation I48.91 Acute kidney injury N17.9 Alcohol withdrawal F10.239 Ischemic cardiomyopathy I25.5 CAD (coronary artery disease) I25.118 Associated angina: with stable angina Coronary Disease-Associated Artery/Lesion type: [place] artery [place] vs. transplanted heart: [place] heart Hypertension I10 Hypothyroidism E03.9 Mild cognitive impairment G31.84 Chronic systolic heart failure I50.22 Moderate obstructive sleep apnea G47.33 (1) CAD (coronary artery disease) Associated angina: with stable angina Coronary Disease-Associated Artery/Lesion type: [place] artery [place] vs. transplanted heart: [place] heart Qualified Code(s): I25.118 - Atherosclerotic heart disease of [place] coronary artery with other forms of angina pectoris
[2021-04-16] MEDS: DIGOXIN 0.125 MG TAB PO SCH (15:48)
[2021-04-16] MEDS: ATORVASTATIN 40 MG TAB PO SCH (20:29)
[2021-04-16] MEDS ORDERED: METOPROLOL SUCC 25MG EXT REL TAB PO SCH (21:00)
[2021-04-17] MEDS: TICAGRELOR 90 MG TAB PO SCH (08:41)
[2021-04-17] MEDS: THIAMINE HCL 100 MG in SYRINGE 9 ML IV SCH (08:41)
[2021-04-17] MEDS: FOLIC ACID 1 MG in SYRINGE 9.8 ML IV SCH (08:41)
[2021-04-17] MEDS: METOPROLOL SUCC 50MG EXT REL TAB PO SCH (08:42)
[2021-04-17] MEDS: VENLAFAXINE HCL XR 150 MG CAPXR PO SCH (08:42)
[2021-04-17] MEDS: GALANTAMINE HYDROBROMIDE 8 MG CAPER PO SCH (08:42)
[2021-04-17] MEDS: ASPIRIN 81 MG ECTAB PO SCH (08:42)
[2021-04-17] MEDS: APIXABAN 5 MG TABLET PO SCH (08:43)
[2021-04-17] MEDS ORDERED: STROKE PATIENT DISCHARGE STA (09:26)
[2021-04-17] MEDS ORDERED: METOPROLOL SUCC 50MG EXT REL TAB PO STA (09:26)
--- NOTE | 2021-04-17 09:38 | Discharge Summary ---
Date of Service April 17, 2021 Admission HPI Per Admitting Provider Sharath Delgado is a 70 year old male who presents to the ER with slurring of speech and right facial droop. He was reportedly our at a bar last night around 6:30pm and noticed the slurring of speech and facial droop at that time. He reports previously having a stroke effecting which was a specific nominal dysphasia which subsequently resolved. He denies any weakness or change in sensation in his extremities. No change in hearing or vision. He suspected he had a stroke but only came to the hospital today on the insistence of his son when he realized today. The patient reports no change in his symptoms since last night. His son feels his dad takes his medications routinely although the patient admits to missing his medications approximately once a week. He was also off both Brilinta and Eliquis in February for 5-7 days for a dental procedure. He is unsure whether he took his usual medications this morning or last night. In the ER CT head was concerning for subacute ischemia in right parietal cortex and small focus in the left frontal lobe, with focal high grade stenosis in right vertebral artery. He was referred to medicine for admission and ongoing management of stroke like symptoms. Principal Diagnosis Acute ischemic stroke, cardioembolic Discharge Exam General: well developed, well nourished, awake, no distress Neck: supple, trachea midline, normal thyroid Lungs: clear to auscultation bilaterally, normal respiratory effort, no accessory muscle use, no distress Heart:normal rate, irreg irreg S1 and S2, no murmur, peripheral pulses normal, capillary refill normal, no edema Abdomen: soft, NT, ND, + BS, no hepatomegaly, normal to percussion Extremities: normal in appearance, no cyanosis, no petechiae, strength is 5/5 bilaterally Neuro: awake and follows commands, moves all extremities, + right facial droop and slurred speech otherwise CN II-XII intact, no pronator drift Skin: warm, dry, no rash, normal turgor Psych: AAOX3, cooperative, euthymic affect Discharge Data Allergies Allergy/AdvReac Type Severity Reaction Status Date / Time donepezil Allergy Unknown Verified 04/12/21 16:49 duloxetine [From Cymbalta] Allergy Unknown Verified 04/12/21 16:49 Consultations 04/12/21 17:35 ED Decision to Admit Stat 04/12/21 22:54 Consult Neurology Routine 04/13/21 14:51 Consult Cardiology Routine Ordered Studies 04/12/21 15:44 CT angio head w con Stat CT angio neck with con Stat CT head/brain wo con Stat 04/12/21 17:53 MR brain wo con Stat 04/14/21 07:58 CT head/brain wo con Stat Hospital Course (1) Acute CVA (cerebrovascular accident): 70 yo WM with a history of atrial fibrillation on chronic Eliquis presents with subacute CVA manifested by R facial droop and slurred speech - Suspect cardioembolic - likely missed doses of Eliquis, back Eliquis, 5mg BID will add aspirin 81mg daily x 3 weeks then just Brilinta again - MRI brain without IV contrast: Left frontal and right parietal lobe infarcts as above. likely subacute - TTE performed, EF is 20% - Lipid panel performed, results reviewed, well controlled=LDL 63, HDL 36, TG 80 - HbA1c is 5.3% - PT/OT eval - Consult neurology - discussed with Dr. Conklin - Low dose Lisinopril held for permissive HTN stat CT head on 04/14 due to increased lethargy: no hemorrhagic conversion, no further evolution of stroke bed did well with PT/OT, can go home, will be with his son (2) Altered mental state: lethargic, difficult to arouse on 04/14, suspect it was due to Ativan he got the night prior now he is awake/alert and oriented, cooperative for 3 days work up on 04/14: CT head with no acute changes ammonia, lactic acid and ABG normal Cr down to normal (3) Atrial fibrillation: rates better today, < 100 increased Toprol to 100mg qAM, got 100mg this morning added Digoxin 125mcg on Eliquis follow up with Dr. Macario in a week or two (4) Acute kidney injury: Cr up to 1.6 on 04/14, got Lasix 20mg IV on 04/13 Cr down to 1.36, eating and drinking better, electrolytes stable continue Lasix on discharge (5) Alcohol withdrawal: less inclined to think he is in withdraw he is calm and cooperative and oriented today hold on further Ativan (6) Ischemic cardiomyopathy: - Discussed case with cardiology, routinely sees Dr. Macario, last visit 09/2020 - Last echo 2018, LVEF 35-40%, now EF <20% -no plans for heart cath Lasix 20mg PO daily Toprol Lisinopril (7) CAD (coronary artery disease): - No current chest pain or shortness of breath to suggest ACS - Elevated troponin on admission suggestive of demand ischemia - LMI, CHULA x2 LCX; staged LAD CHULA x2, May 2015; AMI, occluded stents, overlapping CHULA, March 2017 - Resume Brilinta, Atorvastatin, Toprol, DONYA held to allow permissive HTN (8) Hypertension: - Hold DONYA as noted above (9) Hypothyroidism: - Appears to be overtreated and recently decreased last month from 112 to 100 mcg PO daily due to undetectable TSH. - Repeat TSH improving but still appears to be overtreated, reduce dose to 75 mcg po daily starting 04/14 check TSH in a few weeks (10) Mild cognitive impairment: - Resume galantamine (11) Chronic systolic heart failure: - With severe LV dysfunction, see above (12) Moderate obstructive sleep apnea: - Notably history of this however not on CPAP @ home VTE Prophylaxis - Eliquis Diet - heart healthy, easy to chew, fluid and salt restriction PT/OT : strong enough to go home Total Time Total Time Spent Total Time Spent (In Minutes): 35 minutes Discharge Plan Discharge Items Patient Disposition: Home - Self-Care Reason For Visit: CVA Discharge Diagnosis: Acute stroke Atrial fibrillation with RVR Condition on Discharge: Good Goals: take medications as prescribed outpatient physical therapy follow up with neurology and cardiology Activity: Resume your previous activity Driving/Machine Use: no driving for 1 week Weightbearing: Full weightbearing Non-emergency contact: Primary Care Provider, Crowning Inspector and Neurologist Call non-emergency contact if: you have any medication questions Follow-up/Referrals: Mukul Macario MD [Physician] - 05/01/21 2:30 pm () Raul Conklin MD [Physician] - 05/09/21 3:15 pm () Thi Montaño MD [Primary Care Provider] - 04/30/21 10:15 am () Diet: Heart Healthy Ambulatory Orders: Digoxin (Routine) Timeframe: 1 Week Location: Determined by Patient Ordered By: Omari Young Thyroid Stimulating Hormone (Routine) Timeframe: 4 Weeks Location: Determined by Patient Ordered By: Omari Wallace Attending Provider Instructions: Medications: - METOPROLOL: dose has been INCREASED to 100mg in the morning, new prescription sent - DIGOXIN: added for heart rate control, take 125mcg daily, will check a digoxin level in one week - LEVOTHYROXINE: please take 75mcg daily, this has been DECREASED from your 100mcg dose, want TSH higher as too much thyroid could drive up heart rate - ASPIRIN: 81mg daily, obtain over the counter, take for 3 weeks then stop, continue your Brilinta twice a day Acute/subacute stroke causing right facial droop, slurred speech most likely cause is cardioembolic (clot from the heart) due to missing doses of Eliquis (anticoagulation) please be sure to be compliant with all medications as prescribed as missing doses could lead to further strokes or rapid heart rates with atrial fibrillation to prevent future strokes, you will be on Eliquis, Brilinta, Lipitor will add aspirin 81mg daily for 3 weeks for the acute stroke then stop follow up with neurology in 6-8 weeks follow up with PCP in a week, can get script for outpatient therapy if needed Atrial fibrillation with rapid rates evaluated by cardiology, recommended increasing your Toprol and Digoxin added take Toprol 100mg every morning, next dose due tomorrow morning take Digoxin 125mcg every morning, next dose due tomorrow morning take Eliquis 5mg twice a day to prevent stroke follow up with Dr. Macario, [facility], in 1-2 weeks Hypothyroidism: likely your dose of 100mcg was too much, lowered to 75mcg and new script sent for atrial fibrillation, want your TSH to be high end of normal to limit rapid rates Risk Factors for Stroke: You can reduce your chances of stroke by working with your medical provider to adopt a healthy lifestyle. Some specific ways to lower your chance of stroke are: * If you are a smoker, now is the time to stop smoking cigarettes * If you are diabetic, improve the control of your blood sugars * Avoid excessive amounts of alcohol * Control high blood pressure * Lose weight if you are overweight * Be sure to lead an active lifestyle * Eat a healthy diet low in salt, cholesterol and fat You should know about other risk factors for stroke that you are unable to control. These include: * Age 55 years or older * Male gender * Certain racial groups: , or / * Family History of Stroke, Mini stroke or Heart Attack * Sickle Cell Disease Follow Up: It is important for you to keep your follow up appointments with your medical provider. Who to Call and When: Medical Emergencies: Call 911 immediately if you experience any of the following warning signs and symptoms of Stroke: * Sudden numbness or weakness of the face, arm or leg, especially on one side of the body * Sudden confusion, trouble speaking or understanding * Sudden trouble seeing in one or both eyes * Sudden trouble walking, dizziness, loss of balance or coordination * Sudden severe headache with no cause Do not delay calling 911 if you experience any warning signs or symptoms of a stroke. Delay in seeking medical attention may affect what treatments can be given to you. . Pending Studies at Discharge: No Stand-Alone Forms: Medications to Prevent Stroke, [facility], Smoking Cessation Medications and DC Order Prescriptions: New digoxin [Digitek] 125 mcg (0.125 mg) Tablet 0.125 mg PO DAILY@1600 30 Days Qty: 30 RF: 0 metoprolol succinate 100 mg tablet extended release 24 hr 100 mg PO QAM 30 Days Qty: 30 RF: 3 aspirin 81 mg Tablet,Delayed Release (Dr/Ec) 81 mg PO DAILY 30 Days Qty: 30 RF: 3 levothyroxine 75 mcg capsule 75 mcg PO DAILY Qty: 30 RF: 3 Continued baclofen 10 mg tablet 10 mg PO BID 30 Days Qty: 60 RF: 5 modafinil 100 mg tablet 100 mg PO QAM Qty: 30 RF: 5 furosemide 20 mg tablet 20 mg PO QAM Qty: 30 RF: 11 Brilinta 90 mg tablet 90 mg PO BID Qty: 60 RF: 11 galantamine 24 mg capsule,ext rel. pellets 24 hr 24 mg PO QAM 30 Days Qty: 30 RF: 2 venlafaxine 150 mg capsule,extended release 24hr 150 mg PO DAILY Qty: 30 RF: 5 apixaban 5 mg tablet 5 mg PO BID RF: 0 atorvastatin 80 mg tablet 80 mg PO QPM Qty: 90 RF: 3 omega-3 fatty acids [Fish Oil Concentrate] 1,000 mg Capsule 1,000 mg PO QAM RF: 0 vitamin E 100 unit Capsule 100 unit PO DAILY RF: 0 cyanocobalamin (vitamin B-12) [Vitamin B-12] 1,000 mcg Tablet 1,000 mcg PO PM RF: 0 thiamine HCl (vitamin B1) 100 mg Tablet 100 mg PO BID RF: 0 nitroglycerin [Nitrostat] 0.4 mg Tablet, Sublingual 0.4 mg Sublingual UD PRN (Reason: Chest Pain) RF: 0 garlic Tablet 1,000 mg PO PM RF: 0 cholecalciferol (vitamin D3) [Vitamin D3] 1,000 unit Tablet 1,000 unit PO QAM RF: 0 coenzyme Q10 100 mg Tablet 100 mg PO QAM RF: 0 biotin 1 mg tablet 1 mg PO QAM RF: 0 Discontinued levothyroxine 100 mcg tablet 100 mcg PO QAM Qty: 30 RF: 0 metoprolol succinate 25 mg tablet extended release 24 hr 25 mg PO QAM Qty: 1 RF: 0 lisinopril 5 mg Tablet 5 mg PO QAM RF: 0 Discharge Orders: Discharge Order (Routine); Ordered 04/17/21 Ordered By: Omari Young Admission Data Admit Date/Time: 04/12/21 17:53 Attending Provider: Omari Young Admit Provider: Lan Conklin Primary Care Provider: Thi Montaño V. Other Providers: Lan Conklin ; Raul Conklin ; Mauricio Maxwell Other Interventions: Discharge Summary Assessment (RN) Last Done: 04/17/21 11:20 Coding Level of Care Code D/C DAY MANAGEMENT >30 MINS Diagnoses Acute CVA (cerebrovascular accident) I63.9 Altered mental state R41.82 Atrial fibrillation I48.91 Acute kidney injury N17.9 Alcohol withdrawal F10.239 Ischemic cardiomyopathy I25.5 CAD (coronary artery disease) I25.118 Associated angina: with stable angina Coronary Disease-Associated Artery/Lesion type: r[place]con artery [place] vs. transplanted heart: r[place]con heart Hypertension I10 Hypothyroidism E03.9 Mild cognitive impairment G31.84 Chronic systolic heart failure I50.22 Moderate obstructive sleep apnea G47.33
--- NOTE | 2021-04-17 11:15 | Pharmacy Report ---
Pharmacist Stroke Counseling - Date of Service April 17, 2021 - Scope: Pharmacy has been consulted to provide medication discharge counseling for this patient admitted with [ischemic stroke] [hemorrhagic stroke] [transient ischemic attack] as per the Pharmacist Discharge Counseling for Stroke Patients Pro tocol. - Medications on Discharge: Home Medications Medication Instructions Recorded Confirmed cholecalciferol (vitamin D3) 25 1,000 unit PO QAM 12/31/17 04/12/21 mcg (1,000 unit) tablet (Vitamin D3) coenzyme Q10 100 mg tablet 100 mg PO QAM 12/31/17 04/12/21 cyanocobalamin (vitamin B-12) 1,000 mcg PO PM 12/31/17 04/12/21 1,000 mcg tablet (Vitamin B-12) garlic 1,000 mg PO PM 12/31/17 04/12/21 lisinopril 5 mg tablet 5 mg PO QAM 12/31/17 04/12/21 nitroglycerin 0.4 mg sublingual 0.4 mg SUBLINGUAL UD PRN 12/31/17 04/12/21 tablet (Nitrostat) thiamine HCl (vitamin B1) 100 mg 100 mg PO BID 12/31/17 04/12/21 tablet vitamin E 100 unit capsule 100 unit PO DAILY 12/31/17 04/12/21 metoprolol succinate 25 mg 25 mg PO QAM #1 tab 12/14/18 04/12/21 tablet,extended release 24 hr omega-3 fatty acids 1,000 mg 1,000 mg PO QAM 01/18/19 04/12/21 capsule (Fish Oil Concentrate) biotin 1 mg tablet 1 mg PO QAM tab 03/14/19 04/12/21 apixaban 5 mg tablet 5 mg PO BID tab 03/12/21 04/12/21 New Rx's Medication Instructions Recorded atorvastatin 80 mg tablet 80 mg PO QPM #90 tab 10/03/20 baclofen 10 mg tablet 10 mg PO BID 30 Days #60 tab 11/01/20 modafinil 100 mg tablet 100 mg PO QAM #30 tab 12/02/20 furosemide 20 mg tablet 20 mg PO QAM #30 tab 01/05/21 ticagrelor 90 mg tablet (Brilinta) 90 mg PO BID #60 tab 01/27/21 galantamine 24 mg 24 hr 24 mg PO QAM 30 Days #30 cap 02/24/21 capsule,extended release venlafaxine 150 mg 150 mg PO DAILY #30 cap 02/24/21 capsule,extended release 24 hr levothyroxine 100 mcg tablet 100 mcg PO QAM #30 tab 03/27/21 digoxin 125 mcg (0.125 mg) tablet 0.125 mg PO DAILY@1600 30 Days #30 04/17/21 (Digitek) tab levothyroxine 75 mcg capsule 75 mcg PO DAILY #30 cap 04/17/21 metoprolol succinate 100 mg 100 mg PO QAM 30 Days #30 tab 04/17/21 tablet,extended release 24 hr - Action: The above medications, specifically ones for stroke treatment/prophylaxis, have been reviewed in detail with the patient prior to discharge. This includes indication, common adverse reactions, drug interactions, and medication administration. Medication counseling has been employed using the teach-back method to ensure understanding. - Outcome: The patient has demonstrated understanding of the medications. Additional comments: -reviewed Eliquis and Brilinta with patient. Emphasized need to take twice a day. Reviewed how patient remembers to take medications - he has a pill box. Admits to missing about once per week. -Reviewed addition of aspirin for 3 weeks. Was concerned that this could continue beyond three weeks but after discussion with Dr Young, learned that son is very involved in his care. Helps with medications. -overall reports no problems with Eliquis + Brilinta or Lipitor Thank you for allowing pharmacy to be involved in the care of this patient. Please call [phone] with any additional questions
== END 2021-04-17 12:02 | disposition home or self-care (01) | DRG 65 ==
LOC: ED 15:27 → 2N 17:53 → SUATTDRO 17:53 → 2N 20:48

== ENCOUNTER 2021-04-17 16:44 | Inpatient (IN) ==
[2021-04-17 18:34] LABS: Basophils # (auto) 0.04 K/uL (0-0.2); Basophils % (auto) 0.3 %; Eosinophils % (auto) 0.8 %; Hematocrit (blood only) 46.4 % (42-52); Hemoglobin 15.5 g/dL (14.0-18.0); Immature Granulocytes # (auto) 0.06 K/uL (0.00-0.02); Immature Granulocytes % (auto) 0.5 %; Lymphocytes # (auto) 1.27 K/uL (1.2-3.4); Lymphocytes % (auto) 9.8 %; Mean Corpuscular Hemoglobin 32.1 pg (25-34); Mean Corpuscular Hgb Conc 33.4 g/dL (32-36); Mean Corpuscular Volume 96.1 fL (80-100); Mean Platelet Volume 11.3 fL (7.4-10.4); Monocytes # (auto) 0.92 K/uL (0.11-0.59); Monocytes % (auto) 7.1 %; Neutrophils # (auto) 10.54 K/uL (1.4-6.5); Neutrophils % (auto) 81.5 %; Platelet Count 406 K/uL (130-400); RDW Coefficient of Variation 13.9 % (11.5-14.5); RDW Standard Deviation 48.5 fL (36.4-46.3); Red Blood Count 4.83 M/uL (4.7-6.1); White Blood Count 12.93 K/uL (4.8-10.8)
--- NOTE | 2021-04-17 18:37 | XRay Report ---
XR chest 1V portable CLINICAL HISTORY: SOB TECHNIQUE: Single frontal radiograph of the chest was obtained. Comparison: Comparison is made to chest one view 04/14/2021 FINDINGS: No lines and tubes are seen. Cardiomegaly is noted. There is prominence and cephalization of the vasc ulature with Fabiola B lines seen. No evidence of pleural effusion or pneumothorax. IMPRESSION: Cardiomegaly with moderate pulmonary edema, increased from prior exam. ACT 112: Negative or not required by law. Electronically signed by: Omari Stover M.D. 04/17/2021 6:36 PM
[2021-04-17 19:13] LABS: Alanine Aminotransferase 36 (12-78); Albumin Globulin Ratio 0.7 (0.9-2); Albumin Level 3.5 gm/dl (3.4-5.0); Alkaline Phosphatase 99 U/L (45-117); BUN Creatinine Ratio 9.6 (10-20); Blood Urea Nitrogen 11 mg/dl (7-18); Calcium 9.8 mg/dl (8.5-10.1); Carbon Dioxide 27 mmol/L (21-32); Chloride 106 mmol/L (98-107); Est GFR (African American) 70.1 ml/min; Est GFR (Non-African American) 60.5 ml/min; Globulin 4.8 gm/dl (2.5-4.0); Glucose 108 mg/dl (70-99); Sodium 138 mmol/L (136-145); Total Protein 8.3 gm/dl (6.4-8.2); Troponin I 0.023 ng/ml (0-0.045)
--- NOTE | 2021-04-17 19:15 | Emergency Department Note ---
Impression & Plan Pulmonary edema, Hypoxia ADMIT ED Provider Note HPI: The patient is a 70-year-old male with history of hypertension, atrial fibrillation on Eliquis, Coronary artery disease, Congestive heart failure with reduced ejection fraction less than 20% on recent echo, presents the emergency department chief complaint of shortness of breath. Patient was actually just discharged from the hospital this morning after he had a stay for a subacute stroke. His son at the bedside is assisting with history, states that the patient was on oxygen while he was here in the hospital, states he was taken off of the oxygen and seemed to be doing okay and then shortly after they left the hospital he was becoming more short of breath. States he has had some shortness of breath throughout the afternoon and therefore they presented again to the hospital for further evaluation. Patient denies any chest pain, states he has had a slight cough, states he is vaccinated against COVID-19 x3. He has been taking his Eliquis while inpatient and was just discharged this morning. He does not have any new focal deficits. He is otherwise in no acute physical distress on my initial assessment. He is maintaining his oxygen saturations at 6 L nasal cannula oxygen on my initial evaluation. He was discharged today without an oxygen requirement. ROS: - Pulmonary: Shortness of breath *10 point review systems was conducted and is otherwise negative unless stated above *Outpatient medications and allergy history reviewed PE: General: Alert, NAD HEENT: Normocephalic, atraumatic, trachea midline Eyes: Extraocular eye movement is intact, no scleral erythema Pulmonary: Clear to auscultation bilaterally, no wheezing Cardio: Regular rate and rhythm GI: Abdomen is soft, nontender : No suprapubic tenderness MSK: No evidence of trauma or malformation of the extremities, no edema Skin: No evidence of rash Neuro: Alert, no focal deficits Psychiatric: Cooperative monitor tech: - An order was placed for continuous cardiac monitoring - Patient was noted to be in an irregular rhythm with rate of 111 EKG: Rate: 109 Rhythm: Atrial fibrillation Intervals: Within normal limits ST changes: No ST elevation Time: 1800 CTA CHEST: Moderate bilateral pleural effusions. No evidence of an acute pulmonary embolus. No focal consolidation. Mild cardiomegaly. Pulmonary venous engorgement. Axial interstitial edema. Severe multivessel coronary artery calcifications. Radiologist: Carmine Beatty MD Medical Decision Making: Patient presented with Increasing shortness of breath since he was discharged from the hospital this morning after a stay on the inpatient service for subacute stroke. Patient states that he was on nasal cannula oxygen and when this was removed he began to feel short of breath shortly after his discharge. Labwork Shows a normal pH, mildly elevated PCO2, Troponin is within normal limits and downtrending from previous. Patient denies any chest pain. He is noted to have some significant increased work of breathing on arrival therefore he was given a dose of IV Lasix, he did have a documented oxygen saturation of 85% on room air and maintained his oxygen status greater than 92% on nasal cannula oxygen while here in the ED. His chest x-ray shows a pattern of pulmonary edema. CT angiography was obtained and shows no evidence of pulmonary embolism, no evidence of pneumonia, does show evidence of pulmonary edema. Patient was given a dose of IV Lasix here in the ED for this, on my reassessment he appears improved from the standpoint of his work of breathing,He remains on supplemental oxygen. COVID-19 testing is negative. Given the patient's increased work of breathing and supplemental oxygen requirement in the setting of a recent discharge from the inpatient service, I do think he would benefit from admission for further diuresis andPossibly card iology consultation. He does have a history of CHF with reduced ejection fraction. The hospitalist service will be consulted for Evaluation of the patient in the ED and assistance in disposition. Critical care time: 32 minutes - Stabilization of hypoxia with oxygen saturations less than 90% on room air requiring supplemental oxygen, diuresis for pulmonary edema, time spent at the bedside, interpretation of diagnostic studies, discussion with family and arrangement of admission Diagnosis: 1. Hypoxia secondary to acute pulmonary edema 2. Shortness of breath 3. CHF with reduced ejection fraction less than 20% Disposition: Admission Stephen Ron DO Emergency Medicine Past Med/Surg History Medical History Acute on chronic systolic (congestive) heart failure Aneurysm BRAIN 2007- [facility] /UNSURE OF SIZE- FOLLOWS DR. BAKER Bronchitis Degenerative disc disease Elevated TSH Exposure to COVID-19 virus H/O arterial ischemic stroke residual cognitive impairment. APR 25 2008/ [facility] /PLACED ON BLOOD THINNER Hypertension Lumbar radiculopathy Myocardial Infarction 2015-[facility]- CATH- STENT- FOLLOWS WITH DR. BAKER Nasal septal deviation Osteoarthritis Sleep apnea NO CPAP Tinnitus Transaminitis Surgical History Aspiration into airway PER PATIENT, THIS HAPPENED AFTER E.T TUBE CAME OUT IN RECOVERY, THINKS IT WAS 2005, DOES NOT REMEMBER WHAT PROCEDURE BUT THINKS IT WAS AT [facility]- POOR HISTORIAN (HX STROKE) H/O hernia repair H/O neck surgery History of cardioversion [facility] 2017 History of colonoscopy History of deviated nasal septum WITH REPAIR History of left cataract surgery Hx of umbilical hernia repair S/P cardiac catheterization ONE @ [facility]/ ONE @ [facility] - 2016 & 2017- [facility]- FROM [place] Family History Mother Diabetes Depression Unknown No problems noted. Father Myocardial infarction Grandfather (Paternal) Myocardial infarction Brother Myocardial infarction Sister Depression Other No family history of adverse response to anesthesia No family history of bleeding disorder Denies family history of Colon cancer Ovarian cancer Prostate cancer Breast cancer Social History Smoking Status: Never smoker Age Started Using Tobacco: 22; Age Quit Using Tobacco: 37; Cigarettes Per Day: 30 YEARS AGO; Second Hand Exposure: No; Hx Alcohol Use: Yes Alcohol type: hard liquor Alcohol Intake Frequency: 2-3 x/Week Hx Substance Use: No Preferred Language: Danish Communication Ability: Effective Visual Impairment: No Limitations Hearing Ability: Normal School Speech Language Pathologist Required: No Beliefs That Will Affect Care: None marital status: Current Living Situation: Spouse current occupational status: retired and disabled How many Children do You have: 1 Feels Safe at Home: Yes Childhood Exposure to Second-Hand Smoke: Yes Dental Care, Regularly: Yes Physical Activity Frequency: Daily Seatbelt Use: always Sunscreen Use: No Assistive Devices: None Allergies Allergies Allergy/AdvReac Type Severity Reaction Status Date / Time donepezil Allergy Unknown SEE COMMENT Verified 04/17/21 20:27 duloxetine [From Cymbalta] Allergy Unknown SEE COMMENT Verified 04/17/21 20:27 Home Meds Home Medications Medication Instructions Recorded Confirmed cholecalciferol (vitamin D3) 25 1,000 unit PO QAM 12/31/17 04/17/21 mcg (1,000 unit) tablet (Vitamin D3) coenzyme Q10 100 mg tablet 100 mg PO QAM 12/31/17 04/17/21 cyanocobalamin (vitamin B-12) 1,000 mcg PO PM 12/31/17 04/17/21 1,000 mcg tablet (Vitamin B-12) garlic 1,000 mg PO PM 12/31/17 04/17/21 nitroglycerin 0.4 mg sublingual 0.4 mg SUBLINGUAL UD PRN 12/31/17 04/17/21 tablet (Nitrostat) thiamine HCl (vitamin B1) 100 mg 100 mg PO BID 12/31/17 04/17/21 tablet vitamin E 100 unit capsule 100 unit PO DAILY 12/31/17 04/17/21 omega-3 fatty acids 1,000 mg 1,000 mg PO QAM 01/18/19 04/17/21 capsule (Fish Oil Concentrate) biotin 1 mg tablet 1 mg PO QAM tab 03/14/19 04/17/21 apixaban 5 mg tablet 5 mg PO BID tab 03/12/21 04/17/21 levothyroxine 75 mcg capsule 75 mcg PO DAILYBB 04/17/21 04/17/21 Previous Rx's Medication Instructions Recorded atorvastatin 80 mg tablet 80 mg PO QPM #90 tab 10/03/20 baclofen 10 mg tablet 10 mg PO BID 30 Days #60 tab 11/01/20 modafinil 100 mg tablet 100 mg PO QAM #30 tab 12/02/20 furosemide 20 mg tablet 20 mg PO QAM #30 tab 01/05/21 ticagrelor 90 mg tablet (Brilinta) 90 mg PO BID #60 tab 01/27/21 galantamine 24 mg 24 hr 24 mg PO QAM 30 Days #30 cap 02/24/21 capsule,extended release venlafaxine 150 mg 150 mg PO DAILY #30 cap 02/24/21 capsule,extended release 24 hr aspirin 81 mg tablet,delayed 81 mg PO DAILY 30 Days #30 tab 04/17/21 release digoxin 125 mcg (0.125 mg) tablet 0.125 mg PO DAILY@1600 30 Days #30 04/17/21 (Digitek) tab metoprolol succinate 100 mg 100 mg PO QAM 30 Days #30 tab 04/17/21 tablet,extended release 24 hr Results & Data (ED) Vital Signs Vital Signs - 24 hr 04/17/21 16:55 04/17/21 17:00 04/17/21 18:00 Temperature 36.7 C Temperature Source Temporal Artery Scan Pulse Rate 76 Pulse Rate [Left] 126 H Pulse Rate from SpO2 Sensor Respiratory Rate 19 22 Respiratory Effort / Characteristics Non-Labored Spontaneous Spontaneous Labored Respiratory Depth Normal Blood Pressure 125/89 Blood Pressure [Right Arm] Blood Pressure Mean 101 Blood Pressure Mean [Right Arm] Blood Pressure Position [Right Arm] Pulse Oximetry 95 99 85 L Oxygen Delivery Method Room Air Nasal Cannula Room Air Oxygen Flow Rate 3 Sepsis Recent Fever Within 48 Hours No Sepsis New/Unexplained Change in Mental Status No Sepsis Action Taken by Nursing No Action Required Pulse Oximetry Post Tiitration 04/17/21 18:03 04/17/21 18:26 04/17/21 19:52 Temperature Temperature Source Pulse Rate 94 H Pulse Rate [Left] 105 H Pulse Rate from SpO2 Sensor 98 H Respiratory Rate 23 Respiratory Effort / Characteristics Respiratory Depth Blood Pressure Blood Pressure [Right Arm] Blood Pressure Mean Blood Pressure Mean [Right Arm] Blood Pressure Position [Right Arm] Pulse Oximetry 98 99 96 Oxygen Delivery Method Nasal Cannula Nasal Cannula Nasal Cannula Oxygen Flow Rate 6 6 3 Sepsis Recent Fever Within 48 Hours Sepsis New/Unexplained Change in Mental Status Sepsis Action Taken by Nursing Pulse Oximetry Post Tiitration 04/17/21 20:00 04/17/21 20:07 04/17/21 20:08 Temperature Temperature Source Pulse Rate 109 H Pulse Rate [Left] 104 H Pulse Rate from SpO2 Sensor Respiratory Rate 22 23 Respiratory Effort / Characteristics Spontaneous Labored Respiratory Depth Blood Pressure Blood Pressure [Right Arm] 123/93 Blood Pressure Mean Blood Pressure Mean [Right Arm] 103 Blood Pressure Position [Right Arm] Sitting Pulse Oximetry 99 95 95 Oxygen Delivery Method Nasal Cannula Room Air Nasal Cannula Oxygen Flow Rate 3 3 Sepsis Recent Fever Within 48 Hours Sepsis New/Unexplained Change in Mental Status Sepsis Action Taken by Nursing Pulse Oximetry Post Tiitration 99 04/17/21 20:10 04/17/21 20:20 04/17/21 20:30 Temperature Temperature Source Pulse Rate 110 H 118 H 94 H Pulse Rate [Left] Pulse Rate from SpO2 Sensor 115 H 127 H 92 H Respiratory Rate 22 22 22 Respiratory Effort / Characteristics Respiratory Depth Blood Pressure Blood Pressure [Right Arm] Blood Pressure Mean Blood Pressure Mean [Right Arm] Blood Pressure Position [Right Arm] Pulse Oximetry 97 98 98 Oxygen Delivery Method Nasal Cannula Nasal Cannula Nasal Cannula Oxygen Flow Rate 3 3 3 Sepsis Recent Fever Within 48 Hours Sepsis New/Unexplained Change in Mental Status Sepsis Action Taken by Nursing Pulse Oximetry Post Tiitration 04/17/21 20:40 04/17/21 20:50 04/17/21 21:00 Temperature Temperature Source Pulse Rate 98 H 95 H 105 H Pulse Rate [Left] Pulse Rate from SpO2 Sensor 110 H 102 H 97 H Respiratory Rate 22 17 21 Respiratory Effort / Characteristics Respiratory Depth Blood Pressure Blood Pressure [Right Arm] Blood Pressure Mean Blood Pressure Mean [Right Arm] Blood Pressure Position [Right Arm] Pulse Oximetry 98 100 98 Oxygen Delivery Method Nasal Cannula Room Air Oxygen Flow Rate 3 3 Sepsis Recent Fever Within 48 Hours Sepsis New/Unexplained Change in Mental Status Sepsis Action Taken by Nursing Pulse Oximetry Post Tiitration 04/17/21 21:10 04/17/21 21:20 04/17/21 21:30 Temperature Temperature Source Pulse Rate 100 H 105 H 112 H Pulse Rate [Left] Pulse Rate from SpO2 Sensor 120 H 101 H 116 H Respiratory Rate 22 21 24 Respiratory Effort / Characteristics Respiratory Depth Blood Pressure Blood Pressure [Right Arm] Blood Pressure Mean Blood Pressure Mean [Right Arm] Blood Pressure Position [Right Arm] Pulse Oximetry 95 99 97 Oxygen Delivery Method Room Air Room Air Room Air Oxygen Flow Rate 3 3 3 Sepsis Recent Fever Within 48 Hours Sepsis New/Unexplained Change in Mental Status Sepsis Action Taken by Nursing Pulse Oximetry Post Tiitration 04/17/21 21:40 04/17/21 21:50 04/17/21 22:00 Temperature Temperature Source Pulse Rate 95 H 94 H 85 Pulse Rate [Left] Pulse Rate from SpO2 Sensor 89 113 H Respiratory Rate 20 18 19 Respiratory Effort / Characteristics Respiratory Depth Blood Pressure 126/91 Blood Pressure [Right Arm] Blood Pressure Mean 102 Blood Pressure Mean [Right Arm] Blood Pressure Position [Right Arm] Pulse Oximetry 99 100 Oxygen Delivery Method Room Air Room Air Oxygen Flow Rate 3 3 Sepsis Recent Fever Within 48 Hours Sepsis New/Unexplained Change in Mental Status Sepsis Action Taken by Nursing Pulse Oximetry Post Tiitration 04/17/21 22:21 04/17/21 22:30 04/17/21 23:00 Temperature Temperature Source Pulse Rate 137 H 102 H 90 Pulse Rate [Left] Pulse Rate from SpO2 Sensor Respiratory Rate 22 20 24 Respiratory Effort / Characteristics Respiratory Depth Blood Pressure 122/92 Blood Pressure [Right Arm] Blood Pressure Mean 102 Blood Pressure Mean [Right Arm] Blood Pressure Position [Right Arm] Pulse Oximetry 96 96 96 Oxygen Delivery Method Nasal Cannula Nasal Cannula Nasal Cannula Oxygen Flow Rate 3 3 3 Sepsis Recent Fever Within 48 Hours Sepsis New/Unexplained Change in Mental Status Sepsis Action Taken by Nursing Pulse Oximetry Post Tiitration Laboratory Data Result diagrams: 04/17/21 18:18 04/17/21 19:55 Lab Results 04/17/21 04/17/21 04/17/21 Range/Units 18:18 18:18 18:18 WBC 12.93 H (4.8-10.8) K/uL RBC 4.83 (4.7-6.1) M/uL Hgb 15.5 (14.0-18.0) g/dL Hct 46.4 (42-52) % MCV 96.1 (80-100) fL MCH 32.1 (25-34) pg MCHC 33.4 (32-36) g/dL RDW Std Deviation 48.5 H (36.4-46.3) fL RDW Coeff of Sonja 13.9 (11.5-14.5) % Plt Count 406 H (130-400) K/uL MPV 11.3 H (7.4-10.4) fL Immature Gran % (Auto) 0.5 % Neut % (Auto) 81.5 % Lymph % (Auto) 9.8 % Crowley % (Auto) 7.1 % Eos % (Auto) 0.8 % Baso % (Auto) 0.3 % Neut # (Auto) 10.54 H (1.4-6.5) K/uL Lymph # (Auto) 1.27 (1.2-3.4) K/uL Crowley # (Auto) 0.92 H (0.11-0.59) K/uL Eos # (Auto) 0.10 (0-0.5) K/uL Baso # (Auto) 0.04 (0-0.2) K/uL Immature Gran # (Auto) 0.06 H (0.00-0.02) K/uL PT Cancelled INR Cancelled APTT Cancelled PTT Ratio Cancelled VBG pH (7.36-7.41) VBG pCO2 (38-50) mmHg VBG pO2 mmHg VBG HCO3 mmol/L VBG O2 Saturation % VBG Base Excess mEq/L Barometric Pressure mm/Hg Sodium 138 (136-145) mmol/L Potassium (3.5-5.1) mmol/L Chloride 106 (98-107) mmol/L Carbon Dioxide 27 (21-32) mmol/L Anion Gap 5.0 (3-11) BUN 11 (7-18) mg/dl Creatinine 1.20 (0.6-1.4) mg/dl Est Cr Clr Drug Dosing Not Reportable Est GFR ( Amer) 70.1 ml/min Est GFR (Non-Af Amer) 60.5 ml/min BUN/Creatinine Ratio 9.6 L (10-20) Glucose 108 H (70-99) mg/dl Lactate (0.4-2.0) mmol/L Calcium 9.8 (8.5-10.1) mg/dl Magnesium (1.8-2.4) mg/dl Total Bilirubin 1.0 (0.2-1) mg/dl AST (15-37) U/L ALT 36 (12-78) Alkaline Phosphatase 99 (45-117) U/L Troponin I 0.023 (0-0.045) ng/ml NT-Pro-B Natriuret Pep (0-900) pg/ml Total Protein 8.3 H (6.4-8.2) gm/dl Albumin 3.5 (3.4-5.0) gm/dl Globulin 4.8 H (2.5-4.0) gm/dl Albumin/Globulin Ratio 0.7 L (0.9-2) SARS-CoV-2 (PCR) (Negative) Influenza Type A (PCR) (Neg) Influenza Type B (PCR) (Neg) RSV (RT-PCR) (Neg) 04/17/21 04/17/21 04/17/21 Range/Units 19:55 19:55 19:55 WBC (4.8-10.8) K/uL RBC (4.7-6.1) M/uL Hgb (14.0-18.0) g/dL Hct (42-52) % MCV (80-100) fL MCH (25-34) pg MCHC (32-36) g/dL RDW Std Deviation (36.4-46.3) fL RDW Coeff of Sonja (11.5-14.5) % Plt Count (130-400) K/uL MPV (7.4-10.4) fL Immature Gran % (Auto) % Neut % (Auto) % Lymph % (Auto) % Crowley % (Auto) % Eos % (Auto) % Baso % (Auto) % Neut # (Auto) (1.4-6.5) K/uL Lymph # (Auto) (1.2-3.4) K/uL Crowley # (Auto) (0.11-0.59) K/uL Eos # (Auto) (0-0.5) K/uL Baso # (Auto) (0-0.2) K/uL Immature Gran # (Auto) (0.00-0.02) K/uL PT 12.4 H INR 1.2 H APTT 30.5 PTT Ratio 1.2 VBG pH 7.37 (7.36-7.41) VBG pCO2 51 H (38-50) mmHg VBG pO2 25 mmHg VBG HCO3 29 mmol/L VBG O2 Saturation < 60.0 % VBG Base Excess 2.6 mEq/L Barometric Pressure 732.5 mm/Hg Sodium (136-145) mmol/L Potassium 4.6 (3.5-5.1) mmol/L Chloride (98-107) mmol/L Carbon Dioxide (21-32) mmol/L Anion Gap (3-11) BUN (7-18) mg/dl Creatinine (0.6-1.4) mg/dl Est Cr Clr Drug Dosing Est GFR ( Amer) ml/min Est GFR (Non-Af Amer) ml/min BUN/Creatinine Ratio (10-20) Glucose (70-99) mg/dl Lactate (0.4-2.0) mmol/L Calcium (8.5-10.1) mg/dl Magnesium 2.1 (1.8-2.4) mg/dl Total Bilirubin (0.2-1) mg/dl AST 26 (15-37) U/L ALT (12-78) Alkaline Phosphatase (45-117) U/L Troponin I (0-0.045) ng/ml NT-Pro-B Natriuret Pep 46764 H (0-900) pg/ml Total Protein (6.4-8.2) gm/dl Albumin (3.4-5.0) gm/dl Globulin (2.5-4.0) gm/dl Albumin/Globulin Ratio (0.9-2) SARS-CoV-2 (PCR) (Negative) Influenza Type A (PCR) (Neg) Influenza Type B (PCR) (Neg) RSV (RT-PCR) (Neg) 04/17/21 04/17/21 Range/Units 19:55 20:07 WBC (4.8-10.8) K/uL RBC (4.7-6.1) M/uL Hgb (14.0-18.0) g/dL Hct (42-52) % MCV (80-100) fL MCH (25-34) pg MCHC (32-36) g/dL RDW Std Deviation (36.4-46.3) fL RDW Coeff of Sonja (11.5-14.5) % Plt Count (130-400) K/uL MPV (7.4-10.4) fL Immature Gran % (Auto) % Neut % (Auto) % Lymph % (Auto) % Crowley % (Auto) % Eos % (Auto) % Baso % (Auto) % Neut # (Auto) (1.4-6.5) K/uL Lymph # (Auto) (1.2-3.4) K/uL Crowley # (Auto) (0.11-0.59) K/uL Eos # (Auto) (0-0.5) K/uL Baso # (Auto) (0-0.2) K/uL Immature Gran # (Auto) (0.00-0.02) K/uL PT INR APTT PTT Ratio VBG pH (7.36-7.41) VBG pCO2 (38-50) mmHg VBG pO2 mmHg VBG HCO3 mmol/L VBG O2 Saturation % VBG Base Excess mEq/L Barometric Pressure mm/Hg Sodium (136-145) mmol/L Potassium (3.5-5.1) mmol/L Chloride (98-107) mmol/L Carbon Dioxide (21-32) mmol/L Anion Gap (3-11) BUN (7-18) mg/dl Creatinine (0.6-1.4) mg/dl Est Cr Clr Drug Dosing Est GFR ( Amer) ml/min Est GFR (Non-Af Amer) ml/min BUN/Creatinine Ratio (10-20) Glucose (70-99) mg/dl Lactate 0.9 (0.4-2.0) mmol/L Calcium (8.5-10.1) mg/dl Magnesium (1.8-2.4) mg/dl Total Bilirubin (0.2-1) mg/dl AST (15-37) U/L ALT (12-78) Alkaline Phosphatase (45-117) U/L Troponin I (0-0.045) ng/ml NT-Pro-B Natriuret Pep (0-900) pg/ml Total Protein (6.4-8.2) gm/dl Albumin (3.4-5.0) gm/dl Globulin (2.5-4.0) gm/dl Albumin/Globulin Ratio (0.9-2) SARS-CoV-2 (PCR) NEGATIVE (Negative) Influenza Type A (PCR) Negative (Neg) Influenza Type B (PCR) Negative (Neg) RSV (RT-PCR) Negative (Neg) Administered Medications Discontinued Medications Albuterol (Albuterol Hfa 8 Gm Inhaler) 2 puffs INH NOW ONE Stop: 04/17/21 19:52 Last Admin: 04/17/21 20:20 Dose: 2 puffs Documented by: [id number] Furosemide (Furosemide 40 Mg/4 Ml Vial) 40 mg IV ONE ONE Stop: 04/17/21 19:52 Last Admin: 04/17/21 20:17 Dose: 40 mg Documented by: [id number] Ioversol (Optiray 320 125ml) 120 ml IV ONCE ONE Stop: 04/17/21 22:16 Last Admin: 04/17/21 22:17 Dose: 120 ml Documented by: [id number] Imaging Data Radiologist's Impression: Chest X-Ray 04/17/21 17:00 XR chest 1V portable CLINICAL HISTORY: SOB TECHNIQUE: Single frontal radiograph of the chest was obtained. Comparison: Comparison is made to chest one view 04/14/2021 FINDINGS: No lines and tubes are seen. Cardiomegaly is noted. There is prominence and cephalization of the vasculature with Fabiola B lines seen. No evidence of pleural effusion or pneumothorax. IMPRESSION: Cardiomegaly with moderate pulmonary edema, increased from prior exam. ACT 112: Negative or not required by law. Electronically signed by: Omari Stover M.D. 04/17/2021 6:36 PM Discharge Plan Visit Data Chief Complaint: Shortness of Breath/Dyspnea Stated Complaint: SOB, REQUESTS OXYGEN ED Provider: Stephen Ron Discharge Problem: Pulmonary edema, Hypoxia Forms Stand Alone Forms: My [facility] Prescriptions Prescriptions: No Action baclofen 10 mg tablet 10 mg PO BID 30 Days Qty: 60 RF: 5 modafinil 100 mg tablet 100 mg PO QAM Qty: 30 RF: 5 furosemide 20 mg tablet 20 mg PO QAM Qty: 30 RF: 11 Brilinta 90 mg tablet 90 mg PO BID Qty: 60 RF: 11 galantamine 24 mg capsule,ext rel. pellets 24 hr 24 mg PO QAM 30 Days Qty: 30 RF: 2 venlafaxine 150 mg capsule,extended release 24hr 150 mg PO DAILY Qty: 30 RF: 5 apixaban 5 mg tablet 5 mg PO BID RF: 0 atorvastatin 80 mg tablet 80 mg PO QPM Qty: 90 RF: 3 omega-3 fatty acids [Fish Oil Concentrate] 1,000 mg Capsule 1,000 mg PO QAM RF: 0 vitamin E 100 unit Capsule 100 unit PO DAILY RF: 0 cyanocobalamin (vitamin B-12) [Vitamin B-12] 1,000 mcg Tablet 1,000 mcg PO PM RF: 0 thiamine HCl (vitamin B1) 100 mg Tablet 100 mg PO BID RF: 0 nitroglycerin [Nitrostat] 0.4 mg Tablet, Sublingual 0.4 mg Sublingual UD PRN (Reason: Chest Pain) RF: 0 garlic Tablet 1,000 mg PO PM RF: 0 cholecalciferol (vitamin D3) [Vitamin D3] 1,000 unit Tablet 1,000 unit PO QAM RF: 0 coenzyme Q10 100 mg Tablet 100 mg PO QAM RF: 0 biotin 1 mg tablet 1 mg PO QAM RF: 0 levothyroxine 75 mcg capsule 75 mcg PO DAILYBB RF: 0 digoxin [Digitek] 125 mcg (0.125 mg) Tablet 0.125 mg PO DAILY@1600 30 Days Qty: 30 RF: 0 metoprolol succinate 100 mg tablet extended release 24 hr 100 mg PO QAM 30 Days Qty: 30 RF: 3 aspirin 81 mg Tablet,Delayed Release (Dr/Ec) 81 mg PO DAILY 30 Days Qty: 30 RF: 3 Referrals Referrals: Thi Montaño MD [Primary Care Provider] - Discharge Problem: Pulmonary edema Qualifiers: Chronicity: acute Qualified Code(s): J81.0 - Acute pulmonary edema
[2021-04-17] MEDS ORDERED: ALBUTEROL HFA 8 GM INHALER INH ONE (19:51)
[2021-04-17] MEDS ORDERED: FUROSEMIDE 40 MG/4 ML VIAL IV ONE (19:51)
[2021-04-17 20:12] LABS: Base Excess VBG 2.6 mEq/L; HCO3 VBG 29 mmol/L; PCO2 VBG 51 mmHg (38-50); PO2 VBG 25 mmHg; pH VBG 7.37 (7.36-7.41)
[2021-04-17 20:13] LABS: Oxygen Saturation VBG < 60.0 %
[2021-04-17 20:21] LABS: INR 1.2 (0.9-1.1); Partial Thromboplastin Ratio 1.2; Partial Thromboplastin Time 30.5 Seconds (21.0-31.0); Prothrombin Time 12.4 Seconds (9.0-12.0)
[2021-04-17 20:23] LABS: Potassium 4.6 mmol/L (3.5-5.1)
[2021-04-17 20:28] LABS: Magnesium 2.1 mg/dl (1.8-2.4)
[2021-04-17 21:48] LABS: Influenza A virus by PCR Negative (Neg); Influenza B virus by PCR Negative (Neg); RSV by PCR Negative (Neg); SARS CoV2 RNA(COVID-19) InHosp NEGATIVE (Negative)
[2021-04-17] MEDS ORDERED: OPTIRAY 320 125ml IV ONE (22:15)
--- NOTE | 2021-04-18 00:39 | History & Physical Report ---
Date of Service April 18, 2021 Assessment & Plan (1) CHF exacerbation: (2) Acute respiratory failure with hypoxia: (3) Ischemic cardiomyopathy: (4) Hypertension: (5) Atrial fibrillation: (6) Hypothyroidism: (7) Moderate obstructive sleep apnea: (8) Hyperlipidemia: (9) CAD (coronary artery disease): Plan: 70 yo M Hx CAD multivessel CAD, ischemic cardiomyopathy, HFrEF, recent CVA, HTN, HLD, hypothyroidism, alcohol use, CLARENCE, AFib on Eliquis admitted for acute CHF exacerbation. Acute hypoxic respiratory failure, CHF exacerbation: Discharged 04/17 from hospital for acute CVA. Was on O2 during hospitalization but _. On arrival to ER patient was noted to be hypoxic and tachypneic with resolution with supplemental O2. CTA Chest without evidence of PE but notable for moderate bilateral pleural effusions. BNP elevated ~11,000. COVID-19 and influenza testing negative. Received Lasix 40mg IV x1 in ER; Continue Lasix 40mg IV BID and monitor renal function. Patient had Echo during recent admission: EF 20%, moderately dilated LV, LAD territory akinesis with global LV hypokinesis, severe hypokinesis RV free wall, moderate-severe MR. Cardiology consulted given readmission for CHF exacerbation, severe multivessel CAD. Heart Healthy, low sodium diet with 1500cc fluid restriction. CHF program referral placed. 2 Step prior to discharge to determine if requires home O2. CAD, AFib: History of CHULA in the LCx and the LAD in 2016 Overlapping CHULA placed within the LAD in-stent stenosis in 2017. Cardiology consulted on last admission; decision made for medical management given acute CVA. Continue aspirin, Brilinta, statin, Toprol XL, digoxin. Continue Eliquis for AC. Cardiology consulted as described above. Recent CVA: Discharged home with PT/OT on 04/17 for acute/subacute CVA. MRI 04/12 showed left frontal and right parietal lobe infarcts. Residual deficit on neuro exam of right sided facial droop. Lipid panel: LDL 63, HDL 36, TG 80; continue statin. HbA1c 5.3%. Alcohol use disorder: On last admission had episode 2 days into admission suspicious for alcohol withdrawal. No alcohol since that time (patient was with son since discharge), and no signs of withdrawal currently. AWSS protocol not ordered at this time, will monitor and initiate if necessary. CLARENCE: History of, not on CPAP at home. ABG today 7.37/51//29. Suspect mild chronic hypercapnia. Advocated for CPAP at nighttime, patient refuses. Will continue to monitor. Hypothyroidism: Continue levothyroxine 75mcg daily. Code Status: FULL CODE FEN: Heart healthy, low sodium diet with fluid restriction DVT ppx: Eliquis BID Dispo: Med/Tele History of Present Illness Chief Complaint: SOB Primary Care Provider: Thi Montaño MD 70 yo M Hx CAD multivessel CAD, ischemic cardiomyopathy, HFrEF, recent CVA, HTN, HLD, hypothyroidism, alcohol use, CLARENCE, AFib on Eliquis presented to the ER evening of 04/17 following discharge earlier the same day for acute/subacute CVA. He presented with SOB that started about 2 hours after discharge from the hospital. He reports having robby on oxygen during his hospitalization, but was feeling ok off of it on day of discharge until arrival home. He did not have anything to eat or drink at home prior to presentation back at the hospital. During this most recent admission, he was receiving his Eliquis BID. He is COVID-19 vaccinated x3. In the ER he was hypoxic and tachypneic requiring supplemental O2. CTA Chest negative for PE but did reveal moderate bilateral pleural effusions. BNP elevated, troponin x1 undetectable. COVID-19 and influenza negative. Hospitalist service was consulted for admission for hypoxic respiratory failure. Allergies Allergy/AdvReac Type Severity Reaction Status Date / Time donepezil Allergy Unknown SEE COMMENT Verified 04/17/21 20:27 duloxetine [From Cymbalta] Allergy Unknown SEE COMMENT Verified 04/17/21 20:27 Home Medications Medication Instructions Recorded Confirmed Type cholecalciferol (vitamin D3) 25 1,000 unit PO QAM 12/31/17 04/17/21 History mcg (1,000 unit) tablet (Vitamin D3) coenzyme Q10 100 mg tablet 100 mg PO QAM 12/31/17 04/17/21 History cyanocobalamin (vitamin B-12) 1,000 mcg PO PM 12/31/17 04/17/21 History 1,000 mcg tablet (Vitamin B-12) garlic 1,000 mg PO PM 12/31/17 04/17/21 History nitroglycerin 0.4 mg sublingual 0.4 mg SUBLINGUAL UD PRN 12/31/17 04/17/21 History tablet (Nitrostat) thiamine HCl (vitamin B1) 100 mg 100 mg PO BID 12/31/17 04/17/21 History tablet vitamin E 100 unit capsule 100 unit PO DAILY 12/31/17 04/17/21 History biotin 1 mg tablet 1 mg PO QAM tab 03/14/19 04/17/21 History atorvastatin 80 mg tablet 80 mg PO QPM #90 tab 10/03/20 04/17/21 Rx baclofen 10 mg tablet 10 mg PO BID 30 Days #60 tab 11/01/20 04/17/21 Rx modafinil 100 mg tablet 100 mg PO QAM #30 tab 12/02/20 04/17/21 Rx ticagrelor 90 mg tablet (Brilinta) 90 mg PO BID #60 tab 01/27/21 04/17/21 Rx galantamine 24 mg 24 hr 24 mg PO QAM 30 Days #30 cap 02/24/21 04/17/21 Rx capsule,extended release venlafaxine 150 mg 150 mg PO DAILY #30 cap 02/24/21 04/17/21 Rx capsule,extended release 24 hr apixaban 5 mg tablet 5 mg PO BID tab 03/12/21 04/17/21 History digoxin 125 mcg (0.125 mg) tablet 0.125 mg PO DAILY@1600 30 Days #30 04/17/21 04/17/21 Rx (Digitek) tab levothyroxine 75 mcg capsule 75 mcg PO DAILYBB 04/17/21 04/17/21 History metoprolol succinate 100 mg 100 mg PO QAM 30 Days #30 tab 04/17/21 04/17/21 Rx tablet,extended release 24 hr aspirin 81 mg tablet,delayed 81 mg PO DAILY 21 Days #21 tab 04/19/21 04/17/21 Rx release furosemide 40 mg tablet 40 mg PO QAM #30 tab 04/19/21 Rx Past Med/Surg History Medical History Acute on chronic systolic (congestive) heart failure Aneurysm BRAIN 2007- [facility] /UNSURE OF SIZE- FOLLOWS DR. BAKER Bronchitis Degenerative disc disease Elevated TSH Exposure to COVID-19 virus H/O arterial ischemic stroke residual cognitive impairment. APR 25 2008/ [facility] /PLACED ON BLOOD THINNER Hypertension Lumbar radiculopathy Myocardial Infarction 2015-[facility]- CATH- STENT- FOLLOWS WITH DR. BAKER Nasal septal deviation Osteoarthritis Sleep apnea NO CPAP Tinnitus Transaminitis Surgical History Aspiration into airway PER PATIENT, THIS HAPPENED AFTER E.T TUBE CAME OUT IN RECOVERY, THINKS IT WAS 2005, DOES NOT REMEMBER WHAT PROCEDURE BUT THINKS IT WAS AT [facility]- POOR HISTORIAN (HX STROKE) H/O hernia repair H/O neck surgery History of cardioversion [facility] 2017 History of colonoscopy History of deviated nasal septum WITH REPAIR History of left cataract surgery Hx of umbilical hernia repair S/P cardiac catheterization ONE @ [facility]/ ONE @ [facility] - 2016 & 2017- [facility]- [place] Family History Mother Diabetes Depression Unknown No problems noted. Father Myocardial infarction Grandfather (Paternal) Myocardial infarction Brother Myocardial infarction Sister Depression Other No family history of adverse response to anesthesia No family history of bleeding disorder Denies family history of Colon cancer Ovarian cancer Prostate cancer Breast cancer Social History Smoking Status: Never smoker Age Started Using Tobacco: 22; Age Quit Using Tobacco: 37; Cigarettes Per Day: 30 YEARS AGO; Second Hand Exposure: No; Hx Alcohol Use: Yes Alcohol type: hard liquor Alcohol Intake Frequency: 2-3 x/Week Hx Substance Use: No Preferred Language: Norwegian Communication Ability: Effective Visual Impairment: No Limitations Hearing Ability: Normal Nursing Program Chair Required: No Beliefs That Will Affect Care: None marital status: Current Living Situation: Spouse current occupational status: retired and disabled How many Children do You have: 1 Feels Safe at Home: Yes Childhood Exposure to Second-Hand Smoke: Yes Dental Care, Regularly: Yes Physical Activity Frequency: Daily Seatbelt Use: always Sunscreen Use: No Assistive Devices: None Review of Systems Review of Systems: All systems reviewed & are unremarkable except as noted in HPI & below Constitutional: no fever, no chills and no malaise Respiratory: + dyspnea; no cough Cardiovascular: no chest pain, no palpitations and no edema Gastrointestinal: no abdominal pain, no constipation and no diarrhea/loose stools Physical Exam Constitutional: WD/WN, vitals as above Eyes: PERRL, conjunctivae normal, anicteric sclerae ENMT: external ear and nose normal, oropharynx normal Neck: normal visual inspection Respiratory: decreased air movement throughout with decreased breath sounds / crackles heard over bilateral lung bases Cardiovascular: Rate/Rhythm: + irregularly irregular Heart Sounds: no murmur Extremities: no edema Gastrointestinal (Abdomen): normal bowel sounds, soft, nontender, no hepatosplenomegaly Musculoskeletal: no cyanosis or clubbing, extremities motor strength 5/5 Skin: no rashes, warm and dry Neurologic: Normal speech Right facial droop Sensation grossly intact bilateral UE and LE Psychiatric: A+Ox3, euthymic affect Results & Data Results & Data ([facility]) Vital Signs (Past 12 Hours) Vital Signs Temp Pulse Pulse Resp BP BP Pulse Ox 04/18/21 00:00 94 H 15 129/89 04/17/21 23:00 90 24 122/92 96 04/17/21 22:30 102 H 20 96 04/17/21 22:21 137 H 22 96 04/17/21 22:00 85 19 126/91 04/17/21 21:50 94 H 18 100 04/17/21 21:40 95 H 20 99 04/17/21 21:30 112 H 24 97 04/17/21 21:20 105 H 21 99 04/17/21 21:10 100 H 22 95 04/17/21 21:00 105 H 21 98 04/17/21 20:50 95 H 17 100 04/17/21 20:40 98 H 22 98 04/17/21 20:30 94 H 22 98 04/17/21 20:20 118 H 22 98 04/17/21 20:10 110 H 22 97 04/17/21 20:08 95 04/17/21 20:07 104 H 23 123/93 95 04/17/21 20:00 109 H 22 99 04/17/21 19:52 94 H 23 96 04/17/21 18:26 99 04/17/21 18:03 105 H 98 04/17/21 18:00 126 H 85 L 04/17/21 17:00 22 99 04/17/21 16:55 36.7 C 76 19 125/89 95 Code Status & VTE Plan VTE Prophylaxis Plan VTE Prophylaxis will be ordered: Yes Supervising Physician Co-Signing Physician Notes Attending addendum: I have physically seen this patient, have supervised the medical residents activities, and agree with the H&P unless as otherwise noted. Assessment and Plan: CHF exacerbation/CAD/ischemic cardiomyopathy/hypertension/atrial fibrillation- The patient will be admitted to telemetry for serial cardiac enzymes, serial EKG's, cardiac rhythm monitoring and a 2-D echocardiogram with Dopplers. Given Lasix 40 mg IV in the ED and will continue twice daily Monitor BMP daily Continue aspirin, Brilinta, metoprolol succinate, digoxin and Eliquis Consult cardiology Remaining orders as noted above Resident Activity Tracking Resident Involvement: Resident Care Provided Care Provided: Adult Hospital Medicine (1) CAD (coronary artery disease) Associated angina: with stable angina Coronary Disease-Associated Artery/Lesion type: [place] artery [place] vs. transplanted heart: [place] heart Qualified Code(s): I25.118 - Atherosclerotic heart disease of [place] coronary artery with other forms of angina pectoris
[2021-04-18] MEDS ORDERED: NITROGLYCERIN SL 0.4 MG/TAB TAB SL PRN (03:28)
[2021-04-18] MEDS ORDERED: POLYETHYLENE (MIRALAX) 17 GM PACK PO PRN (03:28)
[2021-04-18] MEDS ORDERED: ACETAMINOPHEN 325 MG TAB PO PRN (03:28)
[2021-04-18] MEDS ORDERED: ONDANSETRON INJ 2 MG/ML 2 ML VIAL IV PRN (03:28)
[2021-04-18 05:55] LABS: Hematocrit (blood only) 42.1 % (42-52); Hemoglobin 13.9 g/dL (14.0-18.0); Mean Corpuscular Hemoglobin 31.9 pg (25-34); Mean Corpuscular Volume 96.6 fL (80-100); Mean Platelet Volume 11.4 fL (7.4-10.4); Platelet Count 331 K/uL (130-400); RDW Coefficient of Variation 13.9 % (11.5-14.5); RDW Standard Deviation 47.8 fL (36.4-46.3); Red Blood Count 4.36 M/uL (4.7-6.1); White Blood Count 10.86 K/uL (4.8-10.8)
[2021-04-18 06:20] LABS: Calcium 9.5 mg/dl (8.5-10.1); Creatinine Clr Calc Pharmacy 52.2 ml/min; Est GFR (African American) 62.5 ml/min; Est GFR (Non-African American) 53.9 ml/min; Potassium 3.7 mmol/L (3.5-5.1)
[2021-04-18] MEDS: LEVOTHYROXINE SODIUM 75 MCG TABLET PO SCH (06:33)
--- NOTE | 2021-04-18 07:34 | CT Scan Report ---
CT ANGIOGRAPHY OF THE CHEST, PULMONARY EMBOLUS PROTOCOL CLINICAL HISTORY: Shortness of breath. COMPARISON STUDY: Chest CT December 31, 2017. Chest radiograph April 17, 2021. TECHNIQUE: Following IV administration of 120 mL of Optiray, helical axial images of the chest were o btained utilizing the pulmonary embolus protocol. Maximal intensity projections and sagittal and cor onal reformats were viewed on an independent 3D workstation. IV contrast was administered without co mplication. Automated exposure control was utilized for the study. A dose lowering technique was ut ilized adhering to the principles of ALARA. CT DOSE: 390.83 mGy.cm FINDINGS: Nonopacification of several segmental bilateral lower lobe pulmonary arteries, more pronou nced on the right, is likely artifactual. No definite pulmonary emboli are identified. Moderate cardi omegaly is noted with extensive coronary artery calcification. Mildly enlarged mediastinal lymph node s are similar to CT of December 31, 2017. Index AP window lymph node measures 2.8 x 1.3 cm per there is no pneumothorax. Moderate right and small left pleural effusions are present. Interlobular septal thickening indicates pulmonary edema. In addition, there are scattered groundglass opacities within t he lungs. Central airways are patent. There is no pneumothorax. No acute fracture or suspicious lesio n is identified within the bony thorax. Upper abdomen is unremarkable. IMPRESSION: 1. No pulmonary emboli identified. Nonopacification of several segmental bilateral lower lobe pulmona ry arteries is likely artifactual. 2. Moderate right and small left pleural effusions. Interstitial pulmonary edema. 3. Groundglass opacities within the lungs which could reflect a superimposed infectious process or al veolar pulmonary edema. 4. Moderate cardiomegaly. Extensive coronary artery calcification. ACT 112: Negative or not required by law. Electronically signed by: Juan Manrique M.D. 04/18/2021 7:33 AM
[2021-04-18] MEDS: TICAGRELOR 90 MG TAB PO SCH ×2 (08:49→21:12)
[2021-04-18] MEDS: VENLAFAXINE HCL XR 150 MG CAPXR PO SCH (08:49)
[2021-04-18] MEDS: GALANTAMINE HYDROBROMIDE 8 MG CAPER PO SCH (08:49)
[2021-04-18] MEDS: THIAMINE HCL 100 MG TAB PO SCH ×2 (08:49→21:12)
[2021-04-18] MEDS: METOPROLOL SUCC 50MG EXT REL TAB PO SCH (08:49)
[2021-04-18] MEDS: ASPIRIN 81 MG ECTAB PO SCH (08:49)
[2021-04-18] MEDS: FUROSEMIDE 40 MG/4 ML VIAL IV SCH ×2 (08:50→17:17)
[2021-04-18] MEDS: APIXABAN 5 MG TABLET PO SCH ×2 (08:50→20:57)
[2021-04-18] MEDS ORDERED: NON-FORMULARY MEDICATION (Coenzyme Q10 100 mg Tablet) PO SCH (09:00)
[2021-04-18] MEDS: BACLOFEN 10 MG TAB PO SCH ×2 (09:21→20:57)
[2021-04-18] MEDS: modafiniL 100 MG TAB PO SCH (09:21)
--- NOTE | 2021-04-18 10:17 | Cardiology Progress Note ---
Date of Service April 18, 2021 Assessment & Plan (1) CHF exacerbation: Plan: -improving with intravenous Lasix. -likely iatrogenic from his recent hospitalization. (2) CAD (coronary artery disease): Plan: -CHULA in the LCx and the LAD in 2016. -overlapping CHULA placed within the LAD for an instent restenosis in 2017. -continue medical management realizing his acute CVA. (3) Atrial fibrillation: Plan: -ventricular response adequately controlled -continue digoxin and metoprolol succinate -currently on Eliquis as his anticoagulant. (4) Acute CVA (cerebrovascular accident): Plan: -the patient demonstrates a significant residual from his subacute CVA. -secondary to noncompliance with his Eliquis. -management per Neurology. Admission and Anticipated Discharge Date Admission Date: April 18, 2021 Subjective The patient is resting comfortably in bed without complaints of chest pain, dyspnea, or palpitations. Physical Exam Physical Exam: In general this is a well-developed well-nourished white male in no acute distress. HEENT exam is negative. Neck is supple with full carotid upstrokes. There are no carotid bruits. No JVD. There is no thyromegaly. Cardiovascular exam reveals a regular rhythm with a normal S1 and S2. No S3, S4, or murmurs are noted. Lungs are clear without rales, rhonchi, or wheezes. Abdomen is soft and nontender without bruits. Extremities reveal intact radial artery and posterior tibial pulses bilaterally. There is no peripheral edema. Results & Data ([facility]) Vital Signs (Past 12 Hours) Vital Signs Temp Pulse Pulse Resp BP BP Pulse Ox 04/18/21 07:09 36.6 C 86 20 111/84 98 04/18/21 04:06 84 20 118/82 98 04/18/21 02:00 72 16 115/85 04/18/21 01:00 86 14 111/83 96 04/18/21 00:00 94 H 15 129/89 04/17/21 23:00 90 24 122/92 96 04/17/21 22:30 102 H 20 96 04/17/21 22:21 137 H 22 96 Diagnostic Findings clinical research monitor notes atrial fibrillation at 90-100 beats per minute. PG Care Time/CCT Total # of Minutes Spent Total Time Spent with Patient: Total time spent is greater than 50% in coordination of care (as documented) at patient's floor/unit and/or counseling patient: Coding Level of Care Code 36624 Subseq Hosp Care Lvl 3 Diagnoses CHF exacerbation I50.9 CAD (coronary artery disease) I25.118 Coronary Disease-Associated Artery/Lesion type: [place] artery [place] vs. transplanted heart: [place] heart Associated angina: with stable angina Atrial fibrillation I48.91 Acute CVA (cerebrovascular accident) I63.9 (1) CAD (coronary artery disease) Coronary Disease-Associated Artery/Lesion type: [place] artery [place] vs. transplanted heart: [place] heart Associated angina: with stable angina Qualified Code(s): I25.118 - Atherosclerotic heart disease of [place] coronary artery with other forms of angina pectoris
--- NOTE | 2021-04-18 10:23 | Electrocardiogram Report ---
Test Reason : Blood Pressure : / mmHG Vent. Rate : 109 BPM Atrial Rate : 101 BPM P-R Int : 000 ms QRS Dur : 080 ms QT Int : 318 ms P-R-T Axes : 000 -22 071 degrees QTc Int : 428 ms Atrial fibrillation with rapid ventricular response Nonspecific T wave abnormality Abnormal ECG When compared with ECG of 14-APR-2021 08:06, Nonspecific T wave abnormality, worse in Lateral leads Confirmed by Mukul Macario ([id number]) on 04/18/2021 10:22:50 AM Referred By: REFERRED SELF Confirmed By:Mukul Macario
[2021-04-18] MEDS ORDERED: DIGOXIN 0.125 MG TAB PO SCH (16:00)
[2021-04-18] MEDS ORDERED: POTASSIUM CHLORIDE CRTAB 20 MEQ TABCR PO STA (16:42)
--- NOTE | 2021-04-18 16:44 | History & Physical Bridge Note ---
Date of Service April 18, 2021 History & Physical Bridge Note I have examined the patient, reviewed the History & Physical and in the interval since the performance of the History & Physical I have noted the following changes of clinical significance: Pt feelin gbetter with IV diuresis, making lots of urine. Also insists that he will want O2 upon discharge. Vitals reviewed, on 2LNC and POx 98%. NAD, AAOx3 irreg irreg, no mgr +diminished BS at bases, +bibasilar crackles, no wheezes ANd +BS sof Fernie ND Ext no edema SKin no rashes Labs reviewed -Discussed care with Dr. Renaldo Faye on chronic systolic CHF-continue diuresis, give KCl 40 meq po x 1 now Chronic kidney disease stage III-follow BMP Improving check 2 step walk test in the AM
[2021-04-18] MEDS ORDERED: CYANOCOBALAMIN 500 MCG TABLET (VITAMIN B-12) PO SCH (21:00)
[2021-04-18] MEDS ORDERED: ATORVASTATIN 40 MG TAB PO SCH (21:00)
[2021-04-19 05:34] LABS: Basophils # (auto) 0.05 K/uL (0-0.2); Basophils % (auto) 0.6 %; Eosinophils # (auto) 0.28 K/uL (0-0.5); Eosinophils % (auto) 3.1 %; Hematocrit (blood only) 48.1 % (42-52); Hemoglobin 15.9 g/dL (14.0-18.0); Immature Granulocytes # (auto) 0.04 K/uL (0.00-0.02); Immature Granulocytes % (auto) 0.4 %; Lymphocytes # (auto) 1.63 K/uL (1.2-3.4); Lymphocytes % (auto) 17.9 %; Mean Corpuscular Hemoglobin 32.1 pg (25-34); Mean Corpuscular Hgb Conc 33.1 g/dL (32-36); Mean Platelet Volume 11.2 fL (7.4-10.4); Monocytes # (auto) 0.81 K/uL (0.11-0.59); Monocytes % (auto) 8.9 %; Neutrophils # (auto) 6.28 K/uL (1.4-6.5); Neutrophils % (auto) 69.1 %; Platelet Count 344 K/uL (130-400); RDW Standard Deviation 49.1 fL (36.4-46.3); Red Blood Count 4.96 M/uL (4.7-6.1); White Blood Count 9.09 K/uL (4.8-10.8)
[2021-04-19 06:04] LABS: BUN Creatinine Ratio 13.1 (10-20); Calcium 9.9 mg/dl (8.5-10.1); Est GFR (African American) 52.3 ml/min; Est GFR (Non-African American) 45.1 ml/min; Magnesium 2.2 mg/dl (1.8-2.4); Potassium 3.9 mmol/L (3.5-5.1)
[2021-04-19] MEDS: LEVOTHYROXINE SODIUM 75 MCG TABLET PO SCH (06:12)
[2021-04-19] MEDS: GALANTAMINE HYDROBROMIDE 8 MG CAPER PO SCH (08:33)
[2021-04-19] MEDS: THIAMINE HCL 100 MG TAB PO SCH (09:36)
[2021-04-19] MEDS: APIXABAN 5 MG TABLET PO SCH (09:36)
[2021-04-19] MEDS: TICAGRELOR 90 MG TAB PO SCH (09:36)
[2021-04-19] MEDS: ASPIRIN 81 MG ECTAB PO SCH (09:36)
--- NOTE | 2021-04-19 09:36 | Cardiology Progress Note ---
Date of Service April 19, 2021 Assessment & Plan (1) CHF exacerbation: Plan: -continue intravenous furosemide. -likely iatrogenic from his recent hospitalization. (2) CAD (coronary artery disease): Plan: -CHULA in the LCx and the LAD in 2016. -overlapping CHULA placed in the LAD for an instent restenosis in 2017. -continue medical management realizing his recent acute CVA. (3) Atrial fibrillation: Plan: -ventricular response adequately controlled. -continue digoxin and metoprolol succinate. -currently on Eliquis as his anticoagulant. (4) Acute CVA (cerebrovascular accident): Plan: -the patient demonstrates a significant residual from his recent CVA. -secondary to noncompliance with his Eliquis. -management per Neurology. Admission and Anticipated Discharge Date Admission Date: April 18, 2021 Subjective The patient is resting comfortably at the bedside without complaints of chest pain, dyspnea, or palpitations. Physical Exam Physical Exam: In general this is a well-developed well-nourished white male in no acute distress. HEENT exam is negative. Neck is supple with full carotid upstrokes. There are no carotid bruits. No JVD. There is no thyromegaly. Card iovascular exam reveals a regular rhythm with a normal S1 and S2. No S3, S4, or murmurs are noted. Lungs are clear without rales, rhonchi, or wheezes. Abdomen is soft and nontender without bruits. Extremities reveal intact radial artery and posterior tibial pulses bilaterally. There is no peripheral edema. Results & Data ([facility]) Vital Signs (Past 12 Hours) Vital Signs Temp Pulse Pulse Pulse Pulse Pulse Resp 04/19/21 08:00 100 H 118 H 95 H 97 H 04/19/21 07:53 36.7 C 80 18 04/19/21 04:00 89 14 04/19/21 00:00 94 H 18 Resp Resp Resp Resp BP Pulse Ox Pulse Ox 04/19/21 08:00 24 26 H 22 24 94 04/19/21 07:53 94/64 L 94 04/19/21 04:00 131/85 98 04/19/21 00:00 119/72 97 Pulse Ox Pulse Ox Pulse Ox 04/19/21 08:00 96 94 86 L 04/19/21 07:53 04/19/21 04:00 04/19/21 00:00 PG Care Time/CCT Total # of Minutes Spent Total Time Spent with Patient: Total time spent is greater than 50% in coordination of care (as documented) at patient's floor/unit and/or counseling patient: Coding Level of Care Code 97104 Subseq Hosp Care Lvl 3 Diagnoses CHF exacerbation I50.9 CAD (coronary artery disease) I25.118 Coronary Disease-Associated Artery/Lesion type: [place] artery [place] vs. transplanted heart: [place] heart Associated angina: with stable angina Atrial fibrillation I48.91 Acute CVA (cerebrovascular accident) I63.9 (1) CAD (coronary artery disease) Coronary Disease-Associated Artery/Lesion type: [place] artery [place] vs. transplanted heart: [place] heart Associated angina: with stable angina Qualified Code(s): I25.118 - Atherosclerotic heart disease of [place] coronary artery with other forms of angina pectoris
[2021-04-19] MEDS: METOPROLOL SUCC 50MG EXT REL TAB PO SCH (09:37)
[2021-04-19] MEDS: VENLAFAXINE HCL XR 150 MG CAPXR PO SCH (09:37)
[2021-04-19] MEDS: FUROSEMIDE 40 MG/4 ML VIAL IV SCH (09:40)
[2021-04-19] MEDS: BACLOFEN 10 MG TAB PO SCH (09:40)
[2021-04-19] MEDS: modafiniL 100 MG TAB PO SCH (10:58)
--- NOTE | 2021-04-19 11:52 | Discharge Summary ---
Date of Service April 19, 2021 Admission HPI Per Admitting Provider 70 yo M Hx CAD multivessel CAD, ischemic cardiomyopathy, HFrEF, recent CVA, HTN, HLD, hypothyroidism, alcohol use, CLARENCE, AFib on Eliquis presented to the ER evening of 04/17 following discharge earlier the same day for acute/subacute CVA. He presented with SOB that started about 2 hours after discharge from the hospital. He reports having robby on oxygen during his hospitalization, but was feeling ok off of it on day of discharge until arrival home. He did not have anything to eat or drink at home prior to presentation back at the hospital. During this most recent admission, he was receiving his Eliquis BID. He is COVID-19 vaccinated x3. In the ER he was hypoxic and tachypneic requiring supplemental O2. CTA Chest negative for PE but did reveal moderate bilateral pleural effusions. BNP elevated, troponin x1 undetectable. COVID-19 and influenza negative. Hospitalist service was consulted for admission for hypoxic respiratory failure. Principal Diagnosis Acute on chronic systolic CHF, acute respiratory failure with hypoxia, recent acute CVA Discharge Exam Constitutional WD/WN, vitals as above Eyes PERRL, conjunctivae normal, anicteric sclerae ENMT external ear and nose normal, oropharynx normal Mild right-sided facial droop Neck trachea midline, no thyromegaly Respiratory normal respiratory effort, lungs clear to auscultation (with some diminished breath sounds at the bases) Cardiovascular RRR, no murmur, no edema Chest (Breasts) Chest: normal inspection of chest Gastrointestinal (Abdomen) normal bowel sounds, soft, nontender, no hepatosplenomegaly Musculoskeletal Extremities: extremities normal to inspection; no cyanosis and no clubbing Skin no rashes, warm and dry Neurologic CN's II-XI intact bilaterally (Except mild right facial droop), moves all extremities, + focal motor deficit (Very mild weakness in right upper extremity throughout) and awake Psychiatric A+Ox3, euthymic affect Lymphatic no lymphedema Discharge Data Allergies Allergy/AdvReac Type Severity Reaction Status Date / Time donepezil Allergy Unknown SEE COMMENT Verified 04/25/21 16:51 duloxetine [From Cymbalta] Allergy Unknown SEE COMMENT Verified 04/25/21 16:51 Consultations 04/17/21 23:52 ED Decision to Admit Stat 04/18/21 03:28 Consult Cardiology Routine [facility] Referral Routine Ordered Studies 04/17/21 21:20 CT angio chest PE protocol Urgent Hospital Course (1) CHF exacerbation: (2) Acute respiratory failure with hypoxia: (3) Ischemic cardiomyopathy: (4) Hypertension: (5) Atrial fibrillation: (6) Hypothyroidism: (7) Moderate obstructive sleep apnea: (8) Hyperlipidemia: (9) CAD (coronary artery disease): 70 yo M Hx CAD multivessel CAD, ischemic cardiomyopathy, HFrEF, recent CVA, HTN, HLD, hypothyroidism, alcohol use, CLARENCE, AFib on Eliquis admitted for acute CHF exacerbation. Acute hypoxic respiratory failure, CHF exacerbation: Discharged 04/17 from hospital for acute CVA. On arrival to ER patient was noted to be hypoxic and tachypneic with resolution with supplemental O2. CTA Chest without evidence of PE but notable for moderate bilateral pleural effusions. BNP elevated ~11,000. COVID-19 and influenza testing negative. Received Lasix 40mg IV x1 in ER; Continued on Lasix 40mg IV BID and had significant improvement with diuresis A two-step walk test showed that he needs 2 L continuously of oxygen via nasal cannula upon discharge-this was ordered for him Patient had Echo during recent admission: EF 20%, moderately dilated LV, LAD territory akinesis with global LV hypokinesis, severe hypokinesis RV free wall, moderate-severe MR. Cardiology consulted given readmission for CHF exacerbation, severe multivessel CAD. Appreciate recommendations-continued diuresis Heart Healthy, low sodium diet with 1500cc fluid restriction. CHF program referral placed. Stable for discharge to home on Lasix 40 mg p.o. once daily which is an increase from his usual dose of 20 mg once daily Check BMP in 1 week with CHF clinic CAD, AFib: History of CHULA in the LCx and the LAD in 2016 Overlapping CHULA placed within the LAD in-stent stenosis in 2017. Cardiology consulted on last admission; decision made for medical management given acute CVA. Continue aspirin, Brilinta, statin, Toprol XL, digoxin. Continue Eliquis for AC. Cardiology consulted as described above. Recent CVA: Discharged home with PT/OT on 04/17 for acute/subacute CVA. MRI 04/12 showed left frontal and right parietal lobe infarcts. Residual deficit on neuro exam of right sided facial droop. Lipid panel: LDL 63, HDL 36, TG 80; continue statin. HbA1c 5.3%. He was to remain on aspirin 81 mg p.o. once daily x3 weeks in addition to his Brilinta and Eliquis, then discontinue the aspirin after that Needs home PT/OT-Home health arranged by case management Alcohol use disorder: On last admission had episode 2 days into admission suspicious for alcohol withdrawal. No alcohol since that time (patient was with son since discharge), and no signs of withdrawal currently. AWSS protocol not ordered at this time, no signs of withdrawal and he reports only drinking a double shot of liquor once a week if that CLARENCE: History of, not on CPAP at home. ABG here 7.//. Suspect mild chronic hypercapnia. Advocated for CPAP at nighttime, patient refuses. Will continue to monitor. Hypothyroidism: Continue levothyroxine 75mcg daily. Code Status: FULL CODE DVT ppx: Eliquis BID Dispo: Stable for discharge to home Total Time Total Time Spent Total Time Spent (In Minutes): 35 min Discharge Plan Discharge Items Patient Disposition: Home - Home Health Services Reason For Visit: HYPOXIC RESPIRATORY FAILURE Discharge Diagnosis: Acute on chronic systolic CHF, Acute respiratory failure with hypoxia Condition on Discharge: Fair Activity: As commented below Lifting: Gradually increase as tolerated Bathing: No limitations Exercise/Sports: Gradually increase as tolerated Exercise Comment: with home PT/OT Driving/Machine Use: No driving until cleared by your doctor due to your stroke Weightbearing: Full weightbearing Non-emergency contact: Primary Care Provider and [place] Hand Call non-emergency contact if: you have any medication questions and your symptoms worsen Follow-up/Referrals: Thi Montaño MD [Primary Care Provider] - (Follow up within 1-2 weeks.) Caridad Robles PA-C [Physician Processing Supervisor] - (Follow-up with the CHF clinic within 1 week after discharge. Ms. Robles will call you to arrange this.) Diet: Heart Healthy and Low Sodium (2gm) Fluids: 1500ml (6 cups) Addtl Attending Provider Instructions: You were admitted for congestive heart failure with increased fluid in your lungs. You were given furosemide through the IV and were able to urinate off a lot of fluid. You are still needing 2 L of oxygen via the nasal cannula at all times upon discharge and oxygen therapy was arranged for you. Please continue to limit your fluid intake, your sodium intake, and weigh yourself daily to prevent this from happening again. Your furosemide dose at home was increased to 40 mg once daily. Arrangements have been made for you to follow-up with the cardiology physicians clinical lab assistant in the CHF clinic after discharge. As for your recent stroke, you are to continue on aspirin 81 mg once daily for the next 3 weeks, and then stop the aspirin. You should remain on your Brilinta and Eliquis as your other 2 blood thinners at all times as before. Last admission, you were also started on a medication called digoxin to control your heart rate, and your metoprolol dose was increased to 100 mg once daily. Your levothyroxine dose was decreased to 75 mcg once daily. Please ensure that all of these medication changes are made to your home medication list, and that you pharmacy picking technician all and any new prescriptions at your pharmacy after the holiday. The home health care case manager is arranging home health to hopefully start on Wednesday for you- this includes home physical and occupational therapy as well as a visiting nurse. She will also arrange for the home medical supply company to deliver more oxygen to your house. It was a pleasure taking care of you. Angle Bellamy! -Usha Orozco MD Call your Primary Care doctor if any of the following symptoms or problems start or get worse: * Shortness of breath or difficulty breathing * Wake up at night short of breath * Chest pain * Cough * Swelling of your hands, feet, or legs * More fatigued or tired with your normal activity * Palpitations - sudden fast heart beats WEIGHT * Weigh yourself every morning after using the bathroom. * Use the same scale. * Wear the same amount of clothing. * Write your weight down on a chart. * Call your Primary Care doctor if you gain more than 2-3 pounds in 1-2 days. MEDICATIONS * Use this discharge instruction sheet for medication instructions. * Take your medications at the time your doctor ordered. * Do not skip a dose of your medicines. * If you miss a dose of medicine, take it as soon as possible, but DO NOT DOUBLE A DOSE. * Read your medicine information when you get home. * Know all of the side effects of your medicine. If in doubt, ask your pharmacist * Call your Primary Care doctor's office if you have any side effects. * Be sure all of your doctors know what medicine and herbs you take (including cold, flu, and herbal medicine). Take the following with you to your follow-up doctor appointments: * Weight Chart * Medication List * List of questions Do not drink excessive alcohol, beer or wine. Pending Studies at Discharge: No Stand-Alone Forms: My [facility] Medications and DC Order Prescriptions: New furosemide 40 mg tablet 40 mg PO QAM Qty: 30 RF: 0 Continued baclofen 10 mg tablet 10 mg PO BID 30 Days Qty: 60 RF: 5 modafinil 100 mg tablet 100 mg PO QAM Qty: 30 RF: 5 Brilinta 90 mg tablet 90 mg PO BID Qty: 60 RF: 11 galantamine 24 mg capsule,ext rel. pellets 24 hr 24 mg PO QAM 30 Days Qty: 30 RF: 2 venlafaxine 150 mg capsule,extended release 24hr 150 mg PO DAILY Qty: 30 RF: 5 apixaban 5 mg tablet 5 mg PO BID RF: 0 vitamin E 100 unit Capsule 100 unit PO DAILY RF: 0 cyanocobalamin (vitamin B-12) [Vitamin B-12] 1,000 mcg Tablet 1,000 mcg PO PM RF: 0 thiamine HCl (vitamin B1) 100 mg Tablet 100 mg PO BID RF: 0 nitroglycerin [Nitrostat] 0.4 mg Tablet, Sublingual 0.4 mg Sublingual UD PRN (Reason: Chest Pain) RF: 0 garlic Tablet 1,000 mg PO PM RF: 0 cholecalciferol (vitamin D3) [Vitamin D3] 1,000 unit Tablet 1,000 unit PO QAM RF: 0 coenzyme Q10 100 mg Tablet 100 mg PO QAM RF: 0 biotin 1 mg tablet 1 mg PO QAM RF: 0 levothyroxine 75 mcg capsule 75 mcg PO DAILYBB RF: 0 aspirin 81 mg Tablet,Delayed Release (Dr/Ec) 81 mg PO DAILY 21 Days Qty: 21 RF: 0 digoxin [Digitek] 125 mcg (0.125 mg) Tablet 0.125 mg PO DAILY@1600 30 Days Qty: 30 RF: 0 metoprolol succinate 100 mg tablet extended release 24 hr 100 mg PO QAM 30 Days Qty: 30 RF: 3 Discontinued furosemide 20 mg tablet 20 mg PO QAM Qty: 30 RF: 11 omega-3 fatty acids [Fish Oil Concentrate] 1,000 mg Capsule 1,000 mg PO QAM RF: 0 No Action atorvastatin 80 mg tablet 80 mg PO HS RF: 0 Discharge Orders: Discharge Order (Routine); Ordered 04/19/21 Ordered By: Usha Orozco Admission Data Admit Date/Time: 04/18/21 00:38 Attending Provider: Usha Orozco Admit Provider: Mercedez Ford Primary Care Provider: Thi Montaño V. Other Providers: Braydon Crow ; Burton Russell ; Caridad Robles ; [facility] Other Interventions: Discharge Summary Assessment (RN) Last Done: 04/19/21 12:34 Coding Level of Care Code D/C DAY MANAGEMENT >30 MINS Diagnoses CHF exacerbation I50.9 Acute respiratory failure with hypoxia J96.01 Ischemic cardiomyopathy I25.5 Hypertension I10 Atrial fibrillation I48.91 Hypothyroidism E03.9 Moderate obstructive sleep apnea G47.33 Hyperlipidemia E78.5 CAD (coronary artery disease) I25.118 Associated angina: with stable angina Coronary Disease-Associated Artery/Lesion type: [place] artery [place] vs. transplanted heart: [place] heart
[2021-04-19] MEDS ORDERED: METOPROLOL SUCC 50MG EXT REL TAB PO SCH (13:00)
[2021-04-19] MEDS ORDERED: LEVOTHYROXINE SODIUM 75 MCG TABLET PO SCH (13:00)
[2021-04-19] MEDS ORDERED: DIGOXIN 0.125 MG TAB PO SCH (13:00)
--- NOTE | 2021-04-19 19:30 | Billing Data ---
Date of Service April 19, 2021 Coding Level of Care Code 62884 Initial Inpt Care Lvl 3
== END 2021-04-19 13:25 | disposition home health service (06) | DRG 291 ==
LOC: ED 16:44 → SUATTDRO 04-18 00:38 → EDINP 04-18 00:38

== ENCOUNTER 2021-04-25 16:15 | Inpatient (IN) ==
[2021-04-25] MEDS ORDERED: OPTIRAY 320 125ml IV ONE (16:47)
--- NOTE | 2021-04-25 16:51 | CT Scan Report ---
CT SCAN OF THE BRAIN WITHOUT IV CONTRAST CLINICAL HISTORY: Slurred speech. Stroke like symptoms. COMPARISON STUDY: CT of the brain dated 04/14/2021. TECHNIQUE: Unenhanced axial CT scan of the brain is performed from the vertex to the skull base. A do se lowering technique was utilized adhering to the principles of ALARA. CT DOSE: 614.27 mGy.cm FINDINGS: Brain parenchyma: There are small evolving infarcts in the high right parietal and left posterior fro ntal lobes. Laminar necrosis is suggested involving the right parietal lobe infarct. There are age-re lated involutional changes noting moderate subcortical and periventricular microangiopathic change. There is no hemorrhage, mass effect, or evidence of acute territorial ischemia by CT criteria. No ext ra-axial fluid collection is seen. Ventricles, sulci, cisterns: Prominent secondary to involutional change. Intracranial vasculature: There is atherosclerotic calcification of the cavernous carotid and vertebr al arteries. Calvarium: Unremarkable. Sinuses and mastoids: The visualized paranasal sinuses are clear. The mastoid air cells are well pneu matized. Orbits: The bony orbits are grossly intact. There are bilateral ocular lens implants. IMPRESSION: 1. There is no hemorrhage, mass effect, or evidence of acute territorial ischemia by CT criteria. 2. Small subacute/evolving infarcts as above. ACT 112: Negative or not required by law. Electronically signed by: Daniel Hernandez M.D. 04/25/2021 4:49 PM
--- NOTE | 2021-04-25 16:59 | CT Scan Report ---
CT ANGIOGRAM OF THE BRAIN; CT ANGIOGRAM OF THE NECK CLINICAL HISTORY: Strokelike symptoms. Slurred speech. COMPARISON STUDY: CT angiogram of the head and neck dated 04/12/2021. CT of the brain performed conc urrently on 04/25/2021. MRI of the brain dated 04/12/2021. TECHNIQUE: Following the IV administration of 119 of Optiray 320, CT angiogram of the head and neck w as performed from the aortic arch to the vertex. Images are reviewed in the axial, sagittal, and woodrow nal planes. 3-D MIPS images are created and assessed. IV contrast was administered without complicati on. All measurements were calculated based on NASCET criteria. A dose lowering technique was utilize d adhering to the principles of ALARA. CT DOSE: 596.59 mGy.cm FINDINGS: Brain parenchyma: There is age-related involutional change noting moderate subcortical and periventri cular microangiopathic disease. There are subacute/evolving infarcts identified in the high right par ietal lobe and the posterior left frontal lobe. There is no evidence of hemorrhage or mass effect. Th ere is no evidence of enhancing mass lesion on the angiogram phase images. The ventricles, sulci, and cisterns are prominent secondary to involutional change. No extra-axial fluid collection is seen. Thoracic aorta: Visualized portions of the thoracic aorta are normal in caliber. The aortic arch demo nstrates standard 3-vessel anatomy. Right carotid arterial system: The right common carotid artery is widely patent, as are the right int ernal and external carotid arteries. Mild plaque is noted in the carotid bulb. There is tortuosity of the distal right ICA. Left carotid arterial system: The left common carotid artery is widely patent, as are the left international trade compliance manager al and external carotid arteries. Mild calcified plaque is noted in the carotid bulb. Vertebral arteries: The vertebral arteries are widely patent bilaterally and codominant in the neck. Subclavian arteries: Widely patent bilaterally. Intracranial vasculature: There is atherosclerotic calcification of the cavernous carotid and vertebr al arteries. The internal carotid arteries are patent at the skull base, as are the anterior and midd le cerebral arteries bilaterally. There is atherosclerotic plaque and irregularity seen throughout th e intracranial right vertebral artery with focal moderate stenosis seen on image #35. The left verteb ral artery and the basilar artery are widely patent. 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 The posterior cerebral arteries are patent. The intracranial lef t vertebral artery is dominant. There is no aneurysm, high-grade stenosis, or focal vessel cut off se en throughout the intracranial circulation. Jugular veins: Patent bilaterally. Dural sinuses: Patent. Lung apices: Partially visualized upper lobe lung parenchyma appears clear. Soft tissues: The visualized pharyngeal soft tissues are normal in appearance noting angiographic pha se technique. The oropharyngeal airway appears widely patent. The salivary and thyroid glands are nor mal in appearance. No cervical lymphadenopathy is seen. Skeletal structures: The skeletal structures are osteopenic. The calvarium appears intact. The cervic al spine is maintained noting multilevel spondylosis. Fusion hardware is noted in the lower cervical region. No lytic or blastic lesion is seen. Orbits: The bony orbits are intact. Orbital contents are normal as visualized noting bilateral ocular lens implants. Sinuses and mastoids: There is trace mucosal thickening in the right maxillary antrum. The paranasal sinuses are otherwise clear. The mastoid air cells are well pneumatized. Cerumen is noted in the left external auditory canal. IMPRESSION: 1. There are small subacute/evolving infarcts as above. 2. There is no evidence of hemorrhage or mass effect. 3. Moderate stenosis is again seen involving the intracranial right vertebral artery at the skull bas e. 4. Otherwise unremarkable CT angiogram of the brain. No change from 04/12/2021. 5. Unremarkable CT angiogram of the neck. No change from 04/12/2021. ACT 112: Negative or not required by law. Electronically signed by: Daniel Hernandez M.D. 04/25/2021 4:58 PM
[2021-04-25 17:03] LABS: Basophils # (auto) 0.05 K/uL (0-0.2); Basophils % (auto) 0.7 %; Eosinophils # (auto) 0.28 K/uL (0-0.5); Hematocrit (blood only) 47.3 % (42-52); Hemoglobin 15.4 g/dL (14.0-18.0); Immature Granulocytes # (auto) 0.02 K/uL (0.00-0.02); Immature Granulocytes % (auto) 0.3 %; Lymphocytes # (auto) 1.47 K/uL (1.2-3.4); Lymphocytes % (auto) 21.2 %; Mean Corpuscular Hemoglobin 32.2 pg (25-34); Mean Corpuscular Hgb Conc 32.6 g/dL (32-36); Mean Corpuscular Volume 98.7 fL (80-100); Mean Platelet Volume 11.4 fL (7.4-10.4); Monocytes # (auto) 0.62 K/uL (0.11-0.59); Monocytes % (auto) 8.9 %; Neutrophils # (auto) 4.51 K/uL (1.4-6.5); Neutrophils % (auto) 64.9 %; Platelet Count 358 K/uL (130-400); RDW Coefficient of Variation 14.2 % (11.5-14.5); RDW Standard Deviation 51.4 fL (36.4-46.3); Red Blood Count 4.79 M/uL (4.7-6.1); White Blood Count 6.95 K/uL (4.8-10.8)
--- NOTE | 2021-04-25 17:13 | History & Physical Report ---
Date of Service April 25, 2021 Assessment & Plan (1) Acute CVA (cerebrovascular accident): Plan: Sharath Delgado is a 70-year-old male with a past medical history of multivessel CAD, ischemic cardiomyopathy, heart failure with reduced ejection fraction, CVA, hypertension, hyperlipidemia, hypothyroidism, alcohol use, A. fib on Eliquis anticoagulation, and sleep apnea with recent hospital discharges from a 04/17 for CVA and then again on 04/19 after an admission for AHRF 2/2 CHF who presents with sx of acute CVA/facial droop CVA, stroke alert CTA/CThead: Small subacute/evolving infarcts of the right parietal lobe and posterior left frontal lobe previously noted on 04/14/2021 CT. Otherwise no hemorrhage, mass-effect, or acute ischemia appreciated on CT. EKG: A. fib, no acute ST segment changes, QTC 398 Patient with exacerbation of right-sided facial droop, dysarthria deficits from prior CVA on admission, suspected cardioembolic No leukocytosis Hemoglobin normal Creatinine: Baseline 1.31.5, 1.57 on admit. Trend. Troponin: Normal Telestroke recommendations from Dr. Tillman reviewed. Recommend magnesium greater than 2, obtaining MRI, [place] [facility] neuro consult and consideration of conversion to NOAC to warfarin although this is not mandatory. Recommended to continue on both antiplatelet medications at this time. (2) Atrial fibrillation: Plan: Atrial fibrillation Anticoagulated with Eliquis Continue metoprolol as above Continue digoxin 0.125 mg daily Adequate rate control at time of assessment (3) CAD (coronary artery disease): Plan: Coronary artery disease with ischemic cardiomyopathy and heart failure with reduced ejection fraction TTE 03/2021 at prior admission, severe hypokinesis of LV, EF<20% History of PCI with CHULA to LCx and LAD, and repeat PCI with CHULA to LAD 2016 Continue aspirin Continue ticagrelor Continue atorvastatin 80 mg p.o. nightly Continue home metoprolol succinate 100 mg p.o. every morning Continue home Lasix (4) Chronic systolic heart failure: Plan: Continue CAD management as above No acute exacerbation appreciated on admitting exam, appears near euvolemic (5) Ischemic cardiomyopathy: Plan: See CAD above (6) Mild cognitive impairment: Plan: Continue home modafinil and galantamine (7) Moderate obstructive sleep apnea: Plan: CPAP nightly as needed (8) Hypertension: Plan: Permissive hypertension Normotensive at assessment (9) Hyperlipidemia: Plan: Continue statin as above (10) Hypothyroidism: Plan: Hypothyroidism Continue home Synthroid 75 mcg daily Plan: Diet: Heart healthy once able to pass stroke dysphagia screening DVT prophylaxis: Anticoagulated as above CODE STATUS: Full code Disposition: PCU stroke protocol monitoring History of Present Illness Chief Complaint: Facial droop, dysarthria Primary Care Provider: Thi Montaño MD Sharath Delgado is a 70-year-old male with a past medical history of multivessel CAD, ischemic cardiomyopathy, heart failure with reduced ejection fraction, CVA, hypertension, hyperlipidemia, hypothyroidism, alcohol use, A. fib on Eliquis anticoagulation, and sleep apnea with recent hospital discharges from a 04/17 for CVA and then again on 04/19 after an admission for AHRF 2/2 CHF who presents with sx of acute CVA/facial droop Patient presented as a stroke alert to the emergency department with slow speech, difficulty chewing/swallowing, and facial droop. Patient was recently admitted for stroke on 04/12 and was placed on aspirin/Brilinta and is on Eliquis for A. fib. Stroke was thought to be cardioembolic. Also recently seen for hypoxia due to exacerbation of CHF Prior stroke was of the right parietal and left frontal lobe Patient last known normal was approximately 12 PM2 PM day of admission. Following his prior stroke he had residual speech deficit and some right-sided facial droop. He has been taking his dual antiplatelet and anticoagulant therapy as prescribed. Morning of admission however his family noticed a severe worsening of the symptoms prompting their return to the emergency department. Patient is seen at the bedside with his son. He denies headache, chest pain, chest pressure, shortness of breath, difficulty breathing, nausea, vomiting, diarrhea, abdominal pain, arm weakness, lower extremity weakness. He does endorse difficulty speaking, swallowing, and smiling. Denies other deficits. Reports his vision/hearing is intact. Denies leg swelling. Denies orthopnea. Telestroke recommendations from Dr. Tillman reviewed. Recommend magnesium greater than 2, obtaining MRI, [place] [facility] neuro consult and consideration of conversion to NOAC to warfarin although this is not mandatory. Recommended to continue on both antiplatelet medications at this time. Medical History: Reviewed Medications: Reviewed. Has taken morning and midday meds. Surgical History: Reviewed Allergies: Reviewed Social History: Former smoker, denies alcohol use, denies recreational drug use Code Status: Full code, confirmed with son at bedside Allergies Allergy/AdvReac Type Severity Reaction Status Date / Time donepezil Allergy Unknown SEE COMMENT Verified 04/25/21 16:51 duloxetine [From Cymbalta] Allergy Unknown SEE COMMENT Verified 04/25/21 16:51 Home Medications Medication Instructions Recorded Confirmed Type cholecalciferol (vitamin D3) 25 1,000 unit PO QAM 12/31/17 04/25/21 History mcg (1,000 unit) tablet (Vitamin D3) coenzyme Q10 100 mg tablet 100 mg PO QAM 12/31/17 04/25/21 History cyanocobalamin (vitamin B-12) 1,000 mcg PO PM 12/31/17 04/25/21 History 1,000 mcg tablet (Vitamin B-12) garlic 1,000 mg PO PM 12/31/17 04/25/21 History nitroglycerin 0.4 mg sublingual 0.4 mg SUBLINGUAL UD PRN 12/31/17 04/25/21 History tablet (Nitrostat) thiamine HCl (vitamin B1) 100 mg 100 mg PO BID 12/31/17 04/25/21 History tablet vitamin E 100 unit capsule 100 unit PO DAILY 12/31/17 04/25/21 History biotin 1 mg tablet 1 mg PO QAM tab 03/14/19 04/25/21 History baclofen 10 mg tablet 10 mg PO BID 30 Days #60 tab 11/01/20 04/25/21 Rx modafinil 100 mg tablet 100 mg PO QAM #30 tab 12/02/20 04/25/21 Rx ticagrelor 90 mg tablet (Brilinta) 90 mg PO BID #60 tab 01/27/21 04/25/21 Rx galantamine 24 mg 24 hr 24 mg PO QAM 30 Days #30 cap 02/24/21 04/25/21 Rx capsule,extended release venlafaxine 150 mg 150 mg PO DAILY #30 cap 02/24/21 04/25/21 Rx capsule,extended release 24 hr apixaban 5 mg tablet 5 mg PO BID tab 03/12/21 04/25/21 History digoxin 125 mcg (0.125 mg) tablet 0.125 mg PO DAILY@1600 30 Days #30 04/17/21 04/25/21 Rx (Digitek) tab levothyroxine 75 mcg capsule 75 mcg PO DAILYBB 04/17/21 04/25/21 History metoprolol succinate 100 mg 100 mg PO QAM 30 Days #30 tab 04/17/21 04/25/21 Rx tablet,extended release 24 hr aspirin 81 mg tablet,delayed 81 mg PO DAILY 21 Days #21 tab 04/19/21 04/25/21 Rx release furosemide 40 mg tablet 40 mg PO QAM #30 tab 04/19/21 04/25/21 Rx atorvastatin 80 mg tablet 80 mg PO HS 04/25/21 04/25/21 History Past Med/Surg History Medical History Acute on chronic systolic (congestive) heart failure Aneurysm BRAIN 2007- [facility] /UNSURE OF SIZE- FOLLOWS DR. BAKER Bronchitis Degenerative disc disease Elevated TSH Exposure to COVID-19 virus H/O arterial ischemic stroke residual cognitive impairment. APR 25 2008/ [facility] /PLACED ON BLOOD THINNER Hypertension Lumbar radiculopathy Myocardial Infarction 2015-[facility]- CATH- STENT- FOLLOWS WITH DR. BAKER Nasal septal deviation Osteoarthritis Sleep apnea NO CPAP Tinnitus Transaminitis Surgical History Aspiration into airway PER PATIENT, THIS HAPPENED AFTER E.T TUBE CAME OUT IN RECOVERY, THINKS IT WAS 2005, DOES NOT REMEMBER WHAT PROCEDURE BUT THINKS IT WAS AT [facility]- POOR HISTORIAN (HX STROKE) H/O hernia repair H/O neck surgery History of cardioversion [facility] 2017 History of colonoscopy History of deviated nasal septum WITH REPAIR History of left cataract surgery Hx of umbilical hernia repair S/P cardiac catheterization ONE @ [facility]/ ONE @ [facility] - 2016 & 2017- [place]- [place] Family History Mother Diabetes Depression Unknown No problems noted. Father Myocardial infarction Grandfather (Paternal) Myocardial infarction Brother Myocardial infarction Sister Depression Other No family history of adverse response to anesthesia No family history of bleeding disorder Denies family history of Colon cancer Ovarian cancer Prostate cancer Breast cancer Social History Smoking Status: Former smoker Age Started Using Tobacco: 22; Age Quit Using Tobacco: 37; Cigarettes Per Day: 30 YEARS AGO; Second Hand Exposure: No; Hx Alcohol Use: Yes Alcohol type: hard liquor Alcohol Intake Frequency: 2-3 x/Week Hx Substance Use: No Preferred Language: German Communication Ability: Effective Visual Impairment: No Limitations Hearing Ability: Normal Event Staff Member Required: No Beliefs That Will Affect Care: None marital status: Current Living Situation: Spouse current occupational status: retired and disabled How many Children do You have: 1 Feels Safe at Home: Yes Childhood Exposure to Second-Hand Smoke: Yes Dental Care, Regularly: Yes Physical Activity Frequency: Daily Seatbelt Use: always Sunscreen Use: No Assistive Devices: None Review of Systems Review of Systems: All systems reviewed & are unremarkable except as noted in HPI & below Physical Exam Physical Exam: General: A&Ox3. NAD. Cooperative. HEENT: Atraumatic, normocephalic. Neuro as below. Pulm: CTAB A&P. -wheezes, -rales, -rhonchi. Symmetrical chest rise. No increased work of breathing. No respiratory distress. Cardiac: Irregularly irregular,-mrg. Radial pulses intact and symmetrical. Abdominal: Nontender, nondistended, soft. BS present. Neuro: Pupils equal and reactive to light. Visual acuity grossly intact. EOM intact without nystagmus. Intact sensation to V1V3. Face is with a right- sided droop, right lip droop, loss of air from the right side on cheek puff, and failure to raise the right commissure on smile. Normal hearing to speech, is able to protrude tongue midline, head turn intact. Shoulder internal and external rotation, elbow flexion/extension, people greeter strength, wrist flexion/extension, hip flexion, ankle dorsiflexion/plantarflexion are all intact with full strength bilaterally and without asymmetry. Sensation to soft touch is intact in hands and feet without asymmetry. Results & Data Results & Data ([facility]) Vital Signs (Past 12 Hours) Vital Signs Pulse Pulse Resp BP BP Pulse Ox 04/25/21 17:03 72 18 124/68 97 04/25/21 16:28 72 18 114/74 95 PG Care Time/CCT Total # of Minutes Spent Total Time Spent with Patient: Total time spent is greater than 50% in coordination of care (as documented) at patient's floor/unit and/or counseling patient: Coding Level of Care Code 45054 Initial In Care Lvl 3 Diagnoses Acute CVA (cerebrovascular accident) I63.9 Atrial fibrillation I48.91 CAD (coronary artery disease) I25.118 Coronary Disease-Associated Artery/Lesion type: [place] artery [place] vs. transplanted heart: [place] heart Associated angina: with stable angina Chronic systolic heart failure I50.22 Ischemic cardiomyopathy I25.5 Mild cognitive impairment G31.84 Moderate obstructive sleep apnea G47.33 Hypertension I10 Hyperlipidemia E78.5 Hypothyroidism E03.9 (1) CAD (coronary artery disease) Coronary Disease-Associated Artery/Lesion type: [place] artery [place] vs. transplanted heart: [place] heart Associated angina: with stable angina Qualified Code(s): I25.118 - Atherosclerotic heart disease of [place] coronary artery with other forms of angina pectoris
--- NOTE | 2021-04-25 17:18 | Emergency Department Note ---
History of Present Illness General Chief complaint: TIA Symptoms Stated complaint: speaking slow, can't chew or swallow, facial droop Time Seen by Provider: 04/25/21 16:30 Source: patient and family History of Present Illness Provider complaint: Right facial droop and slurred speech Onset (ago): hour(s) Location: head, face and right Pain Consistency: + constant Quality: + other (Slurred speech and right facial droop) Relieved By: + none Associated symptoms: no confusion, no chest pain, no cough, no fever/chills, no headaches, no nausea/vomiting or no shortness of breath This is a 70-year-old male who recently had a stroke on the of this month presenting with strokelike symptoms starting at approximately 12 PM to 2 PM today. The patient was well when his daughter last saw him at 11 AM. When his son came to check on him this afternoon the patient had slurred speech and worsening facial droop. After his stroke the patient had a slight facial droop but was able to speak and eat and drink normally. Today the patient is drooling when he tries to drink and having difficulty articulating words. He also states that he feels like he has trouble finding words and is thinking much slower than usual. He denies any numbness or weakness to his arms or extremities. He denies any facial numbness. He has no headache, fever, cough or cold symptoms, chest pain, shortness of breath, abdominal pain, vomiting, diarrhea or urinary symptoms. He denies any injury or fall. He has been taking his medications as prescribed. He is on aspirin, Brilinta and Eliquis. He states his breathing is well controlled and he has not had any recent weight gain or significant swelling to his legs. He does use oxygen at home as needed. Home Medications Medication Instructions Recorded Confirmed Type cholecalciferol (vitamin D3) 25 1,000 unit PO QAM 12/31/17 04/25/21 History mcg (1,000 unit) tablet (Vitamin D3) coenzyme Q10 100 mg tablet 100 mg PO QAM 12/31/17 04/25/21 History cyanocobalamin (vitamin B-12) 1,000 mcg PO PM 12/31/17 04/25/21 History 1,000 mcg tablet (Vitamin B-12) garlic 1,000 mg PO PM 12/31/17 04/25/21 History nitroglycerin 0.4 mg sublingual 0.4 mg SUBLINGUAL UD PRN 12/31/17 04/25/21 History tablet (Nitrostat) thiamine HCl (vitamin B1) 100 mg 100 mg PO BID 12/31/17 04/25/21 History tablet vitamin E 100 unit capsule 100 unit PO DAILY 12/31/17 04/25/21 History biotin 1 mg tablet 1 mg PO QAM tab 03/14/19 04/25/21 History baclofen 10 mg tablet 10 mg PO BID 30 Days #60 tab 11/01/20 04/25/21 Rx modafinil 100 mg tablet 100 mg PO QAM #30 tab 12/02/20 04/25/21 Rx ticagrelor 90 mg tablet (Brilinta) 90 mg PO BID #60 tab 01/27/21 04/25/21 Rx galantamine 24 mg 24 hr 24 mg PO QAM 30 Days #30 cap 02/24/21 04/25/21 Rx capsule,extended release venlafaxine 150 mg 150 mg PO DAILY #30 cap 02/24/21 04/25/21 Rx capsule,extended release 24 hr apixaban 5 mg tablet 5 mg PO BID tab 03/12/21 04/25/21 History digoxin 125 mcg (0.125 mg) tablet 0.125 mg PO DAILY@1600 30 Days #30 04/17/21 04/25/21 Rx (Digitek) tab levothyroxine 75 mcg capsule 75 mcg PO DAILYBB 04/17/21 04/25/21 History metoprolol succinate 100 mg 100 mg PO QAM 30 Days #30 tab 04/17/21 04/25/21 Rx tablet,extended release 24 hr aspirin 81 mg tablet,delayed 81 mg PO DAILY 21 Days #21 tab 04/19/21 04/25/21 Rx release furosemide 40 mg tablet 40 mg PO QAM #30 tab 04/19/21 04/25/21 Rx atorvastatin 80 mg tablet 80 mg PO HS 04/25/21 04/25/21 History Allergies Allergy/AdvReac Type Severity Reaction Status Date / Time donepezil Allergy Unknown SEE COMMENT Verified 04/25/21 16:51 duloxetine [From Cymbalta] Allergy Unknown SEE COMMENT Verified 04/25/21 16:51 Past Med/Surg History Medical History Acute on chronic systolic (congestive) heart failure Aneurysm BRAIN 2007- [facility] /UNSURE OF SIZE- FOLLOWS DR. BAKER Bronchitis Degenerative disc disease Elevated TSH Exposure to COVID-19 virus H/O arterial ischemic stroke residual cognitive impairment. APR 25 2008/ [facility] /PLACED ON BLOOD THINNER Hypertension Lumbar radiculopathy Myocardial Infarction 2016-[facility]- CATH- STENT- FOLLOWS WITH DR. BAKER Nasal septal deviation Osteoarthritis Sleep apnea NO CPAP Tinnitus Transaminitis Surgical History Aspiration into airway PER PATIENT, THIS HAPPENED AFTER E.T TUBE CAME OUT IN RECOVERY, THINKS IT WAS 2005, DOES NOT REMEMBER WHAT PROCEDURE BUT THINKS IT WAS AT [facility]- POOR HISTORIAN (HX STROKE) H/O hernia repair H/O neck surgery History of cardioversion [facility] 2017 History of colonoscopy History of deviated nasal septum WITH REPAIR History of left cataract surgery Hx of umbilical hernia repair S/P cardiac catheterization ONE @ [facility]/ ONE @ [facility] - 2015 & 2017- [place]- FROM [place] Family History Mother Diabetes Depression Unknown No problems noted. Father Myocardial infarction Grandfather (Paternal) Myocardial infarction Brother Myocardial infarction Sister Depression Other No family history of adverse response to anesthesia No family history of bleeding disorder Denies family history of Colon cancer Ovarian cancer Prostate cancer Breast cancer Social History Smoking Status: Former smoker Age Started Using Tobacco: 22; Age Quit Using Tobacco: 37; Cigarettes Per Day: 30 YEARS AGO; Second Hand Exposure: No; Hx Alcohol Use: Yes Alcohol type: hard liquor Alcohol Intake Frequency: 2-3 x/Week Hx Substance Use: No Preferred Language: Romansh Communication Ability: Effective Visual Impairment: No Limitations Hearing Ability: Normal Lacer And Tier Required: No Beliefs That Will Affect Care: None marital status: Current Living Situation: Spouse current occupational status: retired and disabled How many Children do You have: 1 Feels Safe at Home: Yes Childhood Exposure to Second-Hand Smoke: Yes Dental Care, Regularly: Yes Physical Activity Frequency: Daily Seatbelt Use: always Sunscreen Use: No Assistive Devices: None Review of Systems See HPI for pertinent positives & negatives. and A total of 10 systems reviewed and were otherwise negative Physical Exam Vital Signs Vital Signs - 24 hr 04/25/21 16:28 04/25/21 17:03 Pulse Rate 72 Pulse Rate [Apical] 72 Pulse Rhythm [Apical] Regular Pulse Strength [Apical] Normal Respiratory Rate 18 18 Respiratory Effort / Characteristics Non-Labored Spontaneous Non-Labored Respiratory Depth Normal Normal Respiratory Pattern Regular Blood Pressure 114/74 Blood Pressure [Left Arm] 124/68 Blood Pressure Mean 87 Blood Pressure Mean [Left Arm] 86 Blood Pressure Position Sitting Blood Pressure Position [Left Arm] Lying Pulse Oximetry 95 97 Oxygen Delivery Method Room Air Room Air Sepsis Recent Fever Within 48 Hours No Sepsis New/Unexplained Change in Mental Status No Sepsis Action Taken by Nursing No Action Required Constitutional: Vital signs reviewed. Eyes: Pupils are equal round reactive to light. Conjunctiva are noninjected. ENT: Pharynx is clear without erythema or exudate. Mucous membranes are moist. Neck supple without meningeal signs. Respiratory: Clear to auscultation bilaterally. Breath sounds are equal bilaterally. Cardiovascular: Irregularly irregular rhythm. Regular rate. GI: Soft, nondistended and nontender. Bowel sounds are present. Musculoskeletal: No peripheral edema. No lower extremity tenderness. Integumentary: No cyanosis. or jaundice. Neurologic: The patient is awake and alert. Speech is slurred and somewhat slow. Cranial nerves II-XII are intact, except for right-sided facial droop mostly in the lower face but also involving the orbicularis oculus. Motor is 5 out of 5 all extremities. Sensation is intact to light touch all extremities. No pronator drift. No limb ataxia. Psychiatric: Normal affect. Not anxious appearing. Course Administered Medications Discontinued Medications Ioversol (Optiray 320 125ml) 119 ml IV ONCE ONE Stop: 04/25/21 16:48 Last Admin: 04/25/21 16:47 Dose: 119 ml Documented by: [id number] Medical Decision Making Differential Diagnosis Acute CVA, TIA, intracranial hemorrhage, metabolic derangement, infection Medical Records Attestation: I reviewed the patient's medical records. I did perform a limited focused review of portions of the patient's old chart on the electronic medical record. The patient was admitted here on the of this month for a subacute infarct involving his left frontoparietal lobe. He did have a facial droop at that time. This was thought to be cardioembolic and the medical team added aspirin to his regimen of Brilinta and Eliquis. He was readmitted the same day he was discharged for CHF exacerbation and then discharged on the . Home Medications Current Medication List: was personally reviewed by me Laboratory Data Attestation: I reviewed the patient's lab results. Result diagrams: 04/25/21 16:55 04/25/21 16:55 Lab Results 04/25/21 04/25/21 04/25/21 Range/Units 16:52 16:55 16:55 WBC 6.95 (4.8-10.8) K/uL RBC 4.79 (4.7-6.1) M/uL Hgb 15.4 (14.0-18.0) g/dL Hct 47.3 (42-52) % MCV 98.7 (80-100) fL MCH 32.2 (25-34) pg MCHC 32.6 (32-36) g/dL RDW Std Deviation 51.4 H (36.4-46.3) fL RDW Coeff of Sonja 14.2 (11.5-14.5) % Plt Count 358 (130-400) K/uL MPV 11.4 H (7.4-10.4) fL Immature Gran % (Auto) 0.3 % Neut % (Auto) 64.9 % Lymph % (Auto) 21.2 % [place] % (Auto) 8.9 % Eos % (Auto) 4.0 % Baso % (Auto) 0.7 % Neut # (Auto) 4.51 (1.4-6.5) K/uL Lymph # (Auto) 1.47 (1.2-3.4) K/uL [place] # (Auto) 0.62 H (0.11-0.59) K/uL Eos # (Auto) 0.28 (0-0.5) K/uL Baso # (Auto) 0.05 (0-0.2) K/uL Immature Gran # (Auto) 0.02 (0.00-0.02) K/uL PT 12.3 H (9.0-12.0) Seconds INR 1.2 H (0.9-1.1) APTT 28.3 (21.0-31.0) Seconds PTT Ratio 1.1 Sodium (136-145) mmol/L Potassium (3.5-5.1) mmol/L Chloride (98-107) mmol/L Carbon Dioxide (21-32) mmol/L Anion Gap (3-11) BUN (7-18) mg/dl Creatinine (0.6-1.4) mg/dl Est Cr Clr Drug Dosing ml/min Est GFR ( Amer) ml/min Est GFR (Non-Af Amer) ml/min BUN/Creatinine Ratio (10-20) Glucose (70-99) mg/dl POC Glucose 81 (70-99) mg/dl Calcium (8.5-10.1) mg/dl Magnesium (1.8-2.4) mg/dl Total Bilirubin (0.2-1) mg/dl AST (15-37) U/L ALT (12-78) Alkaline Phosphatase (45-117) U/L Troponin I (0-0.045) ng/ml Total Protein (6.4-8.2) gm/dl Albumin (3.4-5.0) gm/dl Globulin (2.5-4.0) gm/dl Albumin/Globulin Ratio (0.9-2) SARS-CoV-2, RNA, NAAT (NEGATIVE) 04/25/21 04/25/21 Range/Units 16:55 17:00 WBC (4.8-10.8) K/uL RBC (4.7-6.1) M/uL Hgb (14.0-18.0) g/dL Hct (42-52) % MCV (80-100) fL MCH (25-34) pg MCHC (32-36) g/dL RDW Std Deviation (36.4-46.3) fL RDW Coeff of Sonja (11.5-14.5) % Plt Count (130-400) K/uL MPV (7.4-10.4) fL Immature Gran % (Auto) % Neut % (Auto) % Lymph % (Auto) % [place] % (Auto) % Eos % (Auto) % Baso % (Auto) % Neut # (Auto) (1.4-6.5) K/uL Lymph # (Auto) (1.2-3.4) K/uL [place] # (Auto) (0.11-0.59) K/uL Eos # (Auto) (0-0.5) K/uL Baso # (Auto) (0-0.2) K/uL Immature Gran # (Auto) (0.00-0.02) K/uL PT (9.0-12.0) Seconds INR (0.9-1.1) APTT (21.0-31.0) Seconds PTT Ratio Sodium 136 (136-145) mmol/L Potassium 4.2 (3.5-5.1) mmol/L Chloride 100 (98-107) mmol/L Carbon Dioxide 33 H (21-32) mmol/L Anion Gap 3.0 (3-11) BUN 25 H (7-18) mg/dl Creatinine 1.57 H (0.6-1.4) mg/dl Est Cr Clr Drug Dosing 44.6 ml/min Est GFR ( Amer) 50.6 ml/min Est GFR (Non-Af Amer) 43.7 ml/min BUN/Creatinine Ratio 15.8 (10-20) Glucose 84 (70-99) mg/dl POC Glucose (70-99) mg/dl Calcium 9.3 (8.5-10.1) mg/dl Magnesium 2.5 H (1.8-2.4) mg/dl Total Bilirubin 0.6 (0.2-1) mg/dl AST 76 H (15-37) U/L ALT 84 H (12-78) Alkaline Phosphatase 103 (45-117) U/L Troponin I 0.016 (0-0.045) ng/ml Total Protein 7.2 (6.4-8.2) gm/dl Albumin 3.2 L (3.4-5.0) gm/dl Globulin 4.0 (2.5-4.0) gm/dl Albumin/Globulin Ratio 0.8 L (0.9-2) SARS-CoV-2, RNA, NAAT NEGATIVE (NEGATIVE) Imaging Data Radiologist's Impression: Head CT 04/25/21 16:31 CT SCAN OF THE BRAIN WITHOUT IV CONTRAST CLINICAL HISTORY: Slurred speech. Stroke like symptoms. COMPARISON STUDY: CT of the brain dated 04/14/2021. TECHNIQUE: Unenhanced axial CT scan of the brain is performed from the vertex to the skull base. A dose lowering technique was utilized adhering to the principles of ALARA. CT DOSE: 614.27 mGy.cm FINDINGS: Brain parenchyma: There are small evolving infarcts in the high right parietal and left posterior frontal lobes. Laminar necrosis is suggested involving the right parietal lobe infarct. There are age-related involutional changes noting moderate subcortical and periventricular microangiopathic change. There is no hemorrhage, mass effect, or evidence of acute territorial ischemia by CT criteria. No extra-axial fluid collection is seen. Ventricles, sulci, cisterns: Prominent secondary to involutional change. Intracranial vasculature: There is atherosclerotic calcification of the cavernous carotid and vertebral arteries. Calvarium: Unremarkable. Sinuses and mastoids: The visualized paranasal sinuses are clear. The mastoid air cells are well pneumatized. Orbits: The bony orbits are grossly intact. There are bilateral ocular lens implants. IMPRESSION: 1. There is no hemorrhage, mass effect, or evidence of acute territorial ischemia by CT criteria. 2. Small subacute/evolving infarcts as above. ACT 112: Negative or not required by law. Electronically signed by: Daniel Hernandez M.D. 04/25/2021 4:49 PM Head CTA 04/25/21 16:31 CT ANGIOGRAM OF THE BRAIN; CT ANGIOGRAM OF THE NECK CLINICAL HISTORY: Strokelike symptoms. Slurred speech. COMPARISON STUDY: CT angiogram of the head and neck dated 04/12/2021. CT of the brain performed concurrently on 04/25/2021. MRI of the brain dated 04/12/2021. TECHNIQUE: Following the IV administration of 119 of Optiray 320, CT angiogram of the head and neck was performed from the aortic arch to the vertex. Images are reviewed in the axial, sagittal, and coronal planes. 3-D MIPS images are created and assessed. IV contrast was administered without complication. All measurements were calculated based on NASCET criteria. A dose lowering technique was utilized adhering to the principles of ALARA. CT DOSE: 596.59 mGy.cm FINDINGS: Brain parenchyma: There is age-related involutional change noting moderate subcortical and periventricular microangiopathic disease. There are subacute/evolving infarcts identified in the high right parietal lobe and the posterior left frontal lobe. There is no evidence of hemorrhage or mass effect. There is no evidence of enhancing mass lesion on the angiogram phase images. The ventricles, sulci, and cisterns are prominent secondary to involutional change. No extra-axial fluid collection is seen. Thoracic aorta: Visualized portions of the thoracic aorta are normal in caliber. The aortic arch demonstrates standard 3-vessel anatomy. Right carotid arterial system: The right common carotid artery is widely patent, as are the right internal and external carotid arteries. Mild plaque is noted in the carotid bulb. There is tortuosity of the distal right ICA. Left carotid arterial system: The left common carotid artery is widely patent, as are the left internal and external carotid arteries. Mild calcified plaque is noted in the carotid bulb. Vertebral arteries: The vertebral arteries are widely patent bilaterally and codominant in the neck. Subclavian arteries: Widely patent bilaterally. Intracranial vasculature: There is atherosclerotic calcification of the cavernous carotid and vertebral arteries. The internal carotid arteries are patent at the skull base, as are the anterior and middle cerebral arteries bilaterally. There is atherosclerotic plaque and irregularity seen throughout the intracranial right vertebral artery with focal moderate stenosis seen on image #35. The left vertebral artery and the basilar artery are widely patent. 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 The posterior cerebral arteries are patent. The intracranial left vertebral artery is dominant. There is no aneurysm, high-grade stenosis, or focal vessel cut off seen throughout the intracranial circulation. Jugular veins: Patent bilaterally. Dural sinuses: Patent. Lung apices: Partially visualized upper lobe lung parenchyma appears clear. Soft tissues: The visualized pharyngeal soft tissues are normal in appearance noting angiographic phase technique. The oropharyngeal airway appears widely patent. The salivary and thyroid glands are normal in appearance. No cervical lymphadenopathy is seen. Skeletal structures: The skeletal structures are osteopenic. The calvarium appears intact. The cervical spine is maintained noting multilevel spondylosis. Fusion hardware is noted in the lower cervical region. No lytic or blastic lesion is seen. Orbits: The bony orbits are intact. Orbital contents are normal as visualized noting bilateral ocular lens implants. Sinuses and mastoids: There is trace mucosal thickening in the right maxillary antrum. The paranasal sinuses are otherwise clear. The mastoid air cells are well pneumatized. Cerumen is noted in the left external auditory canal. IMPRESSION: 1. There are small subacute/evolving infarcts as above. 2. There is no evidence of hemorrhage or mass effect. 3. 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 4. Otherwise unremarkable CT angiogram of the brain. No change from 04/12/2021. 5. Unremarkable CT angiogram of the neck. No change from 04/12/2021. ACT 112: Negative or not required by law. Electronically signed by: Daniel Hernandez M.D. 04/25/2021 4:58 PM Neck CTA 04/25/21 16:31 CT ANGIOGRAM OF THE BRAIN; CT ANGIOGRAM OF THE NECK CLINICAL HISTORY: Strokelike symptoms. Slurred speech. COMPARISON STUDY: CT angiogram of the head and neck dated 04/12/2021. CT of the brain performed concurrently on 04/25/2021. MRI of the brain dated 04/12/2021. TECHNIQUE: Following the IV administration of 119 of Optiray 320, CT angiogram of the head and neck was performed from the aortic arch to the vertex. Images are reviewed in the axial, sagittal, and coronal planes. 3-D MIPS images are created and assessed. IV contrast was administered without complication. All measurements were calculated based on NASCET criteria. A dose lowering technique was utilized adhering to the principles of ALARA. CT DOSE: 596.59 mGy.cm FINDINGS: Brain parenchyma: There is age-related involutional change noting moderate subcortical and periventricular microangiopathic disease. There are subacute/evolving infarcts identified in the high right parietal lobe and the posterior left frontal lobe. There is no evidence of hemorrhage or mass effect. There is no evidence of enhancing mass lesion on the angiogram phase images. The ventricles, sulci, and cisterns are prominent secondary to involutional change. No extra-axial fluid collection is seen. Thoracic aorta: Visualized portions of the thoracic aorta are normal in caliber. The aortic arch demonstrates standard 3-vessel anatomy. Right carotid arterial system: The right common carotid artery is widely patent, as are the right internal and external carotid arteries. Mild plaque is noted in the carotid bulb. There is tortuosity of the distal right ICA. Left carotid arterial system: The left common carotid artery is widely patent, as are the left internal and external carotid arteries. Mild calcified plaque is noted in the carotid bulb. Vertebral arteries: The vertebral arteries are widely patent bilaterally and codominant in the neck. Subclavian arteries: Widely patent bilaterally. Intracranial vasculature: There is atherosclerotic calcification of the cavernous carotid and vertebral arteries. The internal carotid arteries are patent at the skull base, as are the anterior and middle cerebral arteries bilaterally. There is atherosclerotic plaque and irregularity seen throughout the intracranial right vertebral artery with focal moderate stenosis seen on image #35. The left vertebral artery and the basilar artery are widely patent. 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 The posterior cerebral arteries are patent. The intracranial left vertebral artery is dominant. There is no aneurysm, high-grade stenosis, or focal vessel cut off seen throughout the intracranial circulation. Jugular veins: Patent bilaterally. Dural sinuses: Patent. Lung apices: Partially visualized upper lobe lung parenchyma appears clear. Soft tissues: The visualized pharyngeal soft tissues are normal in appearance noting angiographic phase technique. The oropharyngeal airway appears widely patent. The salivary and thyroid glands are normal in appearance. No cervical lymphadenopathy is seen. Skeletal structures: The skeletal structures are osteopenic. The calvarium appears intact. The cervical spine is maintained noting multilevel spondylosis. Fusion hardware is noted in the lower cervical region. No lytic or blastic lesion is seen. Orbits: The bony orbits are intact. Orbital contents are normal as visualized noting bilateral ocular lens implants. Sinuses and mastoids: There is trace mucosal thickening in the right maxillary antrum. The paranasal sinuses are otherwise clear. The mastoid air cells are well pneumatized. Cerumen is noted in the left external auditory canal. IMPRESSION: 1. There are small subacute/evolving infarcts as above. 2. There is no evidence of hemorrhage or mass effect. 3. 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 4. Otherwise unremarkable CT angiogram of the brain. No change from 04/12/2021. 5. Unremarkable CT angiogram of the neck. No change from 04/12/2021. ACT 112: Negative or not required by law. Electronically signed by: Daniel Hernandez M.D. 04/25/2021 4:58 PM ECG Data Attestation: I personally reviewed and interpreted this ECG as follows: Indication: + other (Stroke symptoms) Rate (beats per minute): 73 Rhythm: + atrial fibrillation ECG ST segments: no ST elevation ECG Findings: + Other (Nonspecific T wave changes); no PVCs Comparison ECG Date: from (04/17/2021) Change: no significant change MDM Narrative A stroke alert was called by triage. I did order a stat CT of the head and CT angiogram of the head and neck I did review the images myself as well as the radiology report as described above.he does appear to have evolving infarcts. The angiograms did not demonstrate any new lesions. Carotids are widely patent. He does have stenosis of the right vertebral artery. I did evaluate the patient as noted above. He has deficits in his speech and slight aphasia with right-sided facial droop. I did discuss the case with Dr. Tillman of [facility]. He agreed that the patient is not a candidate for TPA. He is already on Brilinta and Eliquis. His last known well was at 11 AM. He did recommend that we keep his magnesium above 2 and check an MRI. He also mentioned that our neurologist may want to consider changing his NOAC to warfarin. I did place an order for continuous cardiac monitoring. The monitor showed atrial fibrillation at a rate of 73 bpm. I did order and personally review the patient's 12-lead EKG as described above. He has no acute ischemic changes. I did order and review the patient's blood work as noted in the electronic medical record. CBC does not demonstrate leukocytosis or anemia. INR is 1.2. Electrolytes show a carbon dioxide of 33. BUN and creatinine are slightly elevated at 25 and 1.57 respectively. Magnesium is 2.5. AST and ALT are slightly bumped at 76 and 84. Troponin is negative. Covid testing is negative. I did reassess the patient. He has no change in his symptoms. I did discuss the test results as well as the neurologist's recommendations with the son and the patient He will be hospitalized for further care and evaluation. I did discuss the case with the hospitalist and case management director. Impression & Plan Acute cerebrovascular accident (CVA), Facial droop due to acute cerebrovascular accident (CVA), Elevated serum creatinine, Abnormal LFTs, Facial droop Discharge Plan Visit Data Chief Complaint: TIA Symptoms Stated Complaint: speaking slow, can't chew or swallow, facial droop ED Provider: Hector Rivera Discharge Problem: Acute cerebrovascular accident (CVA), Facial droop due to acute cerebrovascular accident (CVA), Elevated serum creatinine, Abnormal LFTs, Facial droop Patient Disposition: Being Evaluated by Hospitalist Forms Stand Alone Forms: My [facility] Prescriptions Prescriptions: No Action baclofen 10 mg tablet 10 mg PO BID 30 Days Qty: 60 RF: 5 modafinil 100 mg tablet 100 mg PO QAM Qty: 30 RF: 5 Brilinta 90 mg tablet 90 mg PO BID Qty: 60 RF: 11 galantamine 24 mg capsule,ext rel. pellets 24 hr 24 mg PO QAM 30 Days Qty: 30 RF: 2 venlafaxine 150 mg capsule,extended release 24hr 150 mg PO DAILY Qty: 30 RF: 5 apixaban 5 mg tablet 5 mg PO BID RF: 0 vitamin E 100 unit Capsule 100 unit PO DAILY RF: 0 cyanocobalamin (vitamin B-12) [Vitamin B-12] 1,000 mcg Tablet 1,000 mcg PO PM RF: 0 thiamine HCl (vitamin B1) 100 mg Tablet 100 mg PO BID RF: 0 nitroglycerin [Nitrostat] 0.4 mg Tablet, Sublingual 0.4 mg Sublingual UD PRN (Reason: Chest Pain) RF: 0 garlic Tablet 1,000 mg PO PM RF: 0 cholecalciferol (vitamin D3) [Vitamin D3] 1,000 unit Tablet 1,000 unit PO QAM RF: 0 coenzyme Q10 100 mg Tablet 100 mg PO QAM RF: 0 biotin 1 mg tablet 1 mg PO QAM RF: 0 levothyroxine 75 mcg capsule 75 mcg PO DAILYBB RF: 0 furosemide 40 mg tablet 40 mg PO QAM Qty: 30 RF: 0 aspirin 81 mg Tablet,Delayed Release (Dr/Ec) 81 mg PO DAILY 21 Days Qty: 21 RF: 0 digoxin [Digitek] 125 mcg (0.125 mg) Tablet 0.125 mg PO DAILY@1600 30 Days Qty: 30 RF: 0 metoprolol succinate 100 mg tablet extended release 24 hr 100 mg PO QAM 30 Days Qty: 30 RF: 3 atorvastatin 80 mg tablet 80 mg PO HS RF: 0 Referrals Referrals: Thi Montaño MD [Primary Care Provider] -
[2021-04-25 17:22] LABS: Albumin Level 3.2 gm/dl (3.4-5.0); BUN Creatinine Ratio 15.8 (10-20); Calcium 9.3 mg/dl (8.5-10.1); Creatinine Clr Calc Pharmacy 44.6 ml/min; Est GFR (African American) 50.6 ml/min; Est GFR (Non-African American) 43.7 ml/min; Magnesium 2.5 mg/dl (1.8-2.4); Potassium 4.2 mmol/L (3.5-5.1)
[2021-04-25 17:26] LABS: INR 1.2 (0.9-1.1); Partial Thromboplastin Ratio 1.1; Partial Thromboplastin Time 28.3 Seconds (21.0-31.0); Prothrombin Time 12.3 Seconds (9.0-12.0)
[2021-04-25 17:27] LABS: Albumin Globulin Ratio 0.8 (0.9-2); Bilirubin,Total 0.6 mg/dl (0.2-1); Total Protein 7.2 gm/dl (6.4-8.2); Troponin I 0.016 ng/ml (0-0.045)
[2021-04-25] MEDS ORDERED: PHARMACIST DISCHARGE MED REC CONSULT PRN (20:02)
[2021-04-25] MEDS ORDERED: NITROGLYCERIN SL 0.4 MG/TAB TAB SL PRN (20:02)
[2021-04-25] MEDS ORDERED: POLYETHYLENE (MIRALAX) 17 GM PACK PO PRN (20:02)
[2021-04-25] MEDS ORDERED: ACETAMINOPHEN 325 MG TAB PO PRN (20:02)
--- NOTE | 2021-04-25 21:30 | Magnetic Resonance Report ---
MRI OF THE BRAIN WITHOUT IV CONTRAST CLINICAL HISTORY: Strokelike symptoms. COMPARISON STUDY: MRI of the brain dated 04/12/2021. CT of the brain dated 04/25/2021. TECHNIQUE: MRI of the brain was performed utilizing various T1 and T2-weighted sequences in the axial , sagittal, and coronal planes. IV contrast was not administered for this examination. FINDINGS: Brain parenchyma: Again seen are foci of restricted diffusion in the posterior left frontal lobe and the high right parietal lobe consistent with subacute/evolving infarcts. There is a new small focus o f restricted diffusion seen within the posterior right frontal lobe consistent with acute to subacute ischemia. There is no evidence of hemorrhage or mass effect. There is age-related involutional dobson e noting moderate subcortical and periventricular microangiopathic disease. Small chronic lacunar inf arcts are noted in the ginger and the left thalamus. No extra-axial fluid collection is seen. The cereb ellar tonsils are normal in configuration. Ventricles, sulci, and cisterns: Prominent secondary to involutional change. Pituitary and sella: Unremarkable. Intracranial vasculature: Normal flow voids are maintained at the skull base. Orbits: The bony orbits are grossly intact. Orbital contents are normal in appearance noting bilatera l ocular lens implants. Sinuses and mastoids: Clear. Calvarium: Unremarkable. Cervical cord: Partially visualized cervical spinal cord is normal in morphology and signal intensity . IMPRESSION: 1. A small focus of restricted diffusion in the posterior right frontal lobe is new from 04/12/2021 a nd consistent with an acute to subacute infarct 2. Subacute/evolving infarcts are again seen in the left frontal and right parietal lobes. The distri bution of infarcts suggests embolic events. 3. There is no hemorrhage or mass effect. ACT 112: Negative or not required by law. Electronically signed by: Daniel Hernandez M.D. 04/25/2021 9:29 PM
[2021-04-25] MEDS ORDERED: PNEUMOCOCCAL Polysaccharide Vaccine 25mcg/0.5mL vial/Syr IM ONE (21:45)
[2021-04-26] MEDS: ATORVASTATIN 40 MG TAB PO SCH ×2 (00:37→20:45)
[2021-04-26] MEDS: APIXABAN 5 MG TABLET PO SCH ×3 (00:37→20:45)
[2021-04-26] MEDS: BACLOFEN 10 MG TAB PO SCH ×3 (00:37→20:45)
[2021-04-26] MEDS: TICAGRELOR 90 MG TAB PO SCH ×3 (00:37→20:45)
[2021-04-26] MEDS: LEVOTHYROXINE SODIUM 75 MCG TABLET PO SCH (06:07)
[2021-04-26 07:17] LABS: Basophils # (auto) 0.05 K/uL (0-0.2); Basophils % (auto) 0.6 %; Eosinophils # (auto) 0.37 K/uL (0-0.5); Eosinophils % (auto) 4.7 %; Hematocrit (blood only) 47.6 % (42-52); Immature Granulocytes # (auto) 0.01 K/uL (0.00-0.02); Immature Granulocytes % (auto) 0.1 %; Lymphocytes # (auto) 1.66 K/uL (1.2-3.4); Lymphocytes % (auto) 21.1 %; Mean Corpuscular Hemoglobin 32.2 pg (25-34); Mean Corpuscular Hgb Conc 33.6 g/dL (32-36); Mean Corpuscular Volume 95.8 fL (80-100); Mean Platelet Volume 11.3 fL (7.4-10.4); Monocytes # (auto) 0.68 K/uL (0.11-0.59); Monocytes % (auto) 8.7 %; Neutrophils # (auto) 5.08 K/uL (1.4-6.5); Neutrophils % (auto) 64.8 %; Platelet Count 302 K/uL (130-400); RDW Coefficient of Variation 14.1 % (11.5-14.5); RDW Standard Deviation 49.1 fL (36.4-46.3); Red Blood Count 4.97 M/uL (4.7-6.1); White Blood Count 7.85 K/uL (4.8-10.8)
[2021-04-26 07:54] LABS: BUN Creatinine Ratio 16.9 (10-20); Calcium 9.5 mg/dl (8.5-10.1); Creatinine Clr Calc Pharmacy 57.5 ml/min; Est GFR (African American) 67.4 ml/min; Est GFR (Non-African American) 58.1 ml/min; Potassium 4.1 mmol/L (3.5-5.1)
[2021-04-26 08:43] LABS: Estimated Average Glucose 105 mg/dl; Hemoglobin A1C 5.3 % (4.5-5.6)
--- NOTE | 2021-04-26 08:50 | Neurology Consultation ---
Date of Consultation April 26, 2021 Assessment & Plan (1) Acute cerebrovascular accident (CVA): (2) Facial droop due to acute cerebrovascular accident (CVA): (3) Mild cognitive impairment: (4) Atrial fibrillation: (5) Vertebral artery stenosis: this patient had a new tiny right frontal acute infarct sometime since his last MRI April 12 (but most likely occurred on April 25). On examination he has the right facial droop which is actually secondary to his original stroke April 11 and it is improved compared to April 15 when I last saw him. He has some mild dysarthria but has no other focal neurologic deficits consistent with stroke. He has a background of mild cognitive impairment and this is stable. He has persistent atrial fibrillation which is rate controlled currently. He has a vertebral artery stenosis. He had this event on Brilinta, aspirin, and apixaban. I suspect his new stroke is embolic in nature. Recommendations: 1. consider switching apixaban to another anticoagulant. 2. continue Brilinta and aspirin for now. 3. physical, occupational, speech therapy consult. 4. continue atorvastatin 80 milligrams daily. 5. The patient can be followed by Dr. Escobedo as an outpatient. Overall, I spent a total of 100 minutes with this case including review of records, review of MRI films, direct evaluation the patient at bedside, and discussion of the case with patient and RN at bedside as well as Dr. Tolentino including differential diagnosis and treatment options. History of Present Illness Reason for Consultation: Patient is a 70-year-old, who I was asked to see at the request of Dr. Tolentino, for neurologic consultation regarding stroke Requesting Physician: Dr. Tolentino Attending Physician: Praveen Tolentino MD History of Present Illness 1st saw this patient on April 14 in consultation during an admission stroke. This patient apparently had a stroke in March of 2008 resulting in some cognitive impairment. I do not have these records. He has been followed ever since by Dr. Escobedo and carries diagnoses of mild cognitive impairment / mild vascular dementia, excessive daytime somnolence disorder, and chronic low back pain. He also has a diagnosis of atrial fibrillation on apixaban and there was concern that he was not compliant with his medicine recently. He has a history of hypertension, coronary artery disease, ischemic cardiomyopathy, and hypothyroidism. He has severe sleep apnea with no tolerance to CPAP. He was noted to have a cerebral aneurysm repair in 2007 also. He is post cervical spine fusion by Dr. Mendoza. Apparently the patient was at dinner at 6 p.m. on April 11 and was noted to have slurred speech and a facial droop on the right. He was brought to the emergency room at 15:30 on April 12 by his son. Imaging revealed 2 subacute new strokes 1 in the right high parietal head region, and the other in the left posterior frontal head region. there was an old stroke in the ginger and mild to moderate all small vessel ischemia. CT angiography of the head was unremarkable. CT angiography of the neck showed right distal vertebral stenosis of a significant nature. He was in rapid atrial fibrillation and there was concern about alcohol withdrawal due to his confusion tachycardia. Echocardiogram revealed severe left ventricular dysfunction heart issues with ejection fraction percent. Patient had a dense right facial droop. By the 15 of April he had no signs of alcohol withdrawal and was on protocol. He was discharged morning of April 17 on aspirin and apixaban. Patient was readmitted April 17 with hypoxia and tachypnea. He had an exacerbation of CHF was discharged on April 19 apixaban, Brilinta, aspirin. Apparently he has been compliant and he says his daughter takes charge of his medications. At 1100 on April 25, he was noted to be well. Sometime around [id number] he had the onset of increased slurred speech, worse facial droop and slower with trouble with word-finding. He was not in pain in the not have any changes in his limbs. He arrived to the emergency room April 25 at 1628, with a blood pressure of 114/74, O2 saturation 95 percent, pulse 72 in atrial fibrillation, and respiratory rate 18.+ he has remained in atrial fibrillation since admission with a rate between 90 in 70. This morning he has no pain or headache. He does not have lightheadedness, vision problems, swallowing issues, or vertigo. believe he has some mild confusion, but this is better than yesterday. His facial droop may be similar to yesterday. He has slurred speech. Thinks this is worse than it was he was discharged originally from the hospital, April 17. CT scan of the head showed no acute changes. CT angiography of the head neck had no changes compared to the previous studies of April 12. MRI of the brain showed a tiny new right frontal acute stroke not present previously. Everything else was the same and the 2 small strokes April 12 were evolving as expected on MRI. CBC and Chem profile were largely unremarkable although he had elevated BUN and creatinine. AST and ALT were mildly elevated as well. Today CBC was unremarkable. BUN and creatinine are improved on hydration triglycerides were 115 and total cholesterol 101. Allergies Allergy/AdvReac Type Severity Reaction Status Date / Time donepezil Allergy Unknown SEE COMMENT Verified 04/25/21 16:51 duloxetine [From Cymbalta] Allergy Unknown SEE COMMENT Verified 04/25/21 16:51 Home Medications Medication Instructions Recorded Confirmed Type cholecalciferol (vitamin D3) 25 1,000 unit PO QAM 12/31/17 04/25/21 History mcg (1,000 unit) tablet (Vitamin D3) coenzyme Q10 100 mg tablet 100 mg PO QAM 12/31/17 04/25/21 History cyanocobalamin (vitamin B-12) 1,000 mcg PO PM 12/31/17 04/25/21 History 1,000 mcg tablet (Vitamin B-12) garlic 1,000 mg PO PM 12/31/17 04/25/21 History nitroglycerin 0.4 mg sublingual 0.4 mg SUBLINGUAL UD PRN 12/31/17 04/25/21 History tablet (Nitrostat) thiamine HCl (vitamin B1) 100 mg 100 mg PO BID 12/31/17 04/25/21 History tablet vitamin E 100 unit capsule 100 unit PO DAILY 12/31/17 04/25/21 History biotin 1 mg tablet 1 mg PO QAM tab 03/14/19 04/25/21 History baclofen 10 mg tablet 10 mg PO BID 30 Days #60 tab 11/01/20 04/25/21 Rx modafinil 100 mg tablet 100 mg PO QAM #30 tab 12/02/20 04/25/21 Rx ticagrelor 90 mg tablet (Brilinta) 90 mg PO BID #60 tab 01/27/21 04/25/21 Rx galantamine 24 mg 24 hr 24 mg PO QAM 30 Days #30 cap 02/24/21 04/25/21 Rx capsule,extended release venlafaxine 150 mg 150 mg PO DAILY #30 cap 02/24/21 04/25/21 Rx capsule,extended release 24 hr apixaban 5 mg tablet 5 mg PO BID tab 03/12/21 04/25/21 History digoxin 125 mcg (0.125 mg) tablet 0.125 mg PO DAILY@1600 30 Days #30 04/17/21 04/25/21 Rx (Digitek) tab levothyroxine 75 mcg capsule 75 mcg PO DAILYBB 04/17/21 04/25/21 History metoprolol succinate 100 mg 100 mg PO QAM 30 Days #30 tab 04/17/21 04/25/21 Rx tablet,extended release 24 hr aspirin 81 mg tablet,delayed 81 mg PO DAILY 21 Days #21 tab 04/19/21 04/25/21 Rx release furosemide 40 mg tablet 40 mg PO QAM #30 tab 04/19/21 04/25/21 Rx atorvastatin 80 mg tablet 80 mg PO HS 04/25/21 04/25/21 History Patient History Medical History Acute on chronic systolic (congestive) heart failure Aneurysm BRAIN 2007- [facility] /UNSURE OF SIZE- FOLLOWS DR. BAKER Bronchitis Degenerative disc disease Elevated TSH Exposure to COVID-19 virus H/O arterial ischemic stroke residual cognitive impairment. APR 25 2008/ [facility] /PLACED ON BLOOD THINNER Hypertension Lumbar radiculopathy Myocardial Infarction 2015-[facility]- CATH- STENT- FOLLOWS WITH DR. BAKER Nasal septal deviation Osteoarthritis Sleep apnea NO CPAP Tinnitus Transaminitis Surgical History Aspiration into airway PER PATIENT, THIS HAPPENED AFTER E.T TUBE CAME OUT IN RECOVERY, THINKS IT WAS 2005, DOES NOT REMEMBER WHAT PROCEDURE BUT THINKS IT WAS AT [facility]- POOR HISTORIAN (HX STROKE) H/O hernia repair H/O neck surgery History of cardioversion [facility] 2017 History of colonoscopy History of deviated nasal septum WITH REPAIR History of left cataract surgery Hx of umbilical hernia repair S/P cardiac catheterization ONE @ [facility]/ ONE @ [facility] - 2016 & 2017- [facility]- [place] Family History Mother Diabetes Depression Unknown No problems noted. Father Myocardial infarction Grandfather (Paternal) Myocardial infarction Brother Myocardial infarction Sister Depression Other No family history of adverse response to anesthesia No family history of bleeding disorder Denies family history of Colon cancer Ovarian cancer Prostate cancer Breast cancer Social History Smoking Status: Former smoker Age Started Using Tobacco: 22; Age Quit Using Tobacco: 37; Cigarettes Per Day: 30 YEARS AGO; Second Hand Exposure: No; Hx Alcohol Use: Yes Alcohol type: hard liquor Alcohol Intake Frequency: 2-3 x/Week Hx Substance Use: No Preferred Language: Greek Communication Ability: Effective Visual Impairment: No Limitations Hearing Ability: Normal Service Tester Required: No Beliefs That Will Affect Care: None marital status: Current Living Situation: Alone current occupational status: retired and disabled How many Children do You have: 1 Other Information That Helps Us Care for You: No Feels Safe at Home: Yes Safety Concerns: Feels Safe At This Time Childhood Exposure to Second-Hand Smoke: Yes Dental Care, Regularly: Yes Physical Activity Frequency: Daily Seatbelt Use: always Sunscreen Use: No Assistive Devices: Oxygen - Continuous Review of Systems Constitutional: no fever, no fatigue and no weakness Eyes: no diplopia, no eye pain and no worsening vision Ear, Nose, Mouth, Throat: no ear pain, no tinnitus, no hearing loss, no dizziness, no snoring, no hoarseness and no dysphagia Respiratory: no cough and no dyspnea Cardiovascular: no chest pain, no palpitations and no lightheadedness Gastrointestinal: no abdominal pain, no nausea and no vomiting Musculoskeletal: no back pain, no neck pain, no radicular pain, no joint pain and no myalgia Integumentary: no rash and no lesions Neurologic: + abnormal speech and + memory loss; no gait abnormality, no localized weakness, no generalized weakness, no tingling, no numbness, no tremor(s), no abnormal movements, no headache(s) and no confusion Psychiatric: no depression, no irritability, no anxiety, no difficulty concentrating, no confusion and no hallucinations Endocrine: no fatigue and no flushing Hematologic / Lymphatic: no easy bleeding and no easy bruising Allergy / Immunological: no urticaria and no problem reported Exam (Neuro) Physical Exam: The patient is right-handed. The patient is awake, alert, and attentive. Speech is normal without any aphasia, but he has some [id number] dysarthria. The patient can name objects, repeat phrases, and has normal spontaneous speech. Mentation and thought processes are intact, with orientation to person, place and time, and normal fund of knowledge. Attention and concentration are normal. Mood and affect are normal and appropriate. General appearance and grooming are normal. Short and long-term memory are mildly impaired. Pupils are 3 mm bilaterally and reactive to light. Extraocular eye muscles are intact without nystagmus. Visual acuity and visual martinez seem normal grossly to confrontation. There are no deficits to sensation in the face in all 3 distributions of the fifth cranial nerve bilaterally. Corneal reflexes are positive bilaterally. there is a moderate right facial droop. He can move the corner of the mouth on the right with voluntary smile although it is still a symmetrical ( this is an improvement from April 15). Hearing seems normal bilaterally. Palate moves well without asymmetry. There is normal sternocleidomastoid and trapezius (shoulder shrug) strength bilaterally. Tongue is midline with good strength bilaterally. Neck has a full range of motion without discomfort. There are no cervical bruits bilaterally. There are no cranial or ocular bruits. Cervical, thoracic, and lumbar spine are nontender to palpation. Gait is narrow based, with good arm swing, turns, and stance. With outstretched arms there is no drift. There are no resting, postural, or action tremors. There is no ataxia with finger to nose testing. There is good facility in the hands. No other abnormal involuntary movements are noted. Motor strength is 5/5 diffusely in the arms bilaterally including deltoids, biceps, triceps, brachioradialis, wrist flexors and extensors, polisher implant, and intrinsic hand muscles. Motor strength is 5/5 diffusely in the legs bilaterally including hip flexors, quadriceps, hamstrings, gastrocnemius, tibialis anterior, tibialis posterior, and Peroneii muscles. Toe extensors are normal and there is good bulk in the extensor digitorum brevis muscles bilaterally. The limbs have good tone without rigidity or spasticity. There is no atrophy noted in the muscles. Muscle bulk is normal, there is no tenderness to palpation, no myotonia to percussion, and no fasciculations seen. Sensory examination is intact to touch and pin throughout all 4 limbs diffusely. Reflexes are 1/4 in the biceps, triceps, brachioradialis, quadriceps, and Achilles tendons bilaterally. There is no clonus bilaterally. Toes are downgoing with plantar stimulation bilaterally. Peripheral pulses are present and of normal quality distally in all 4 limbs. There is no peripheral edema noted in the limbs. Results & Data ([facility]) Vital Signs (Past 12 Hours) Vital Signs Temp Pulse Pulse Resp BP BP Pulse Ox 04/26/21 07:02 36.4 C L 56 L 18 103/71 93 04/26/21 03:32 36.9 C 58 L 16 118/74 96 04/25/21 23:59 59 L 04/25/21 23:03 36.5 C 92 H 19 109/69 94 04/25/21 20:34 75 PG Care Time/CCT Total # of Minutes Spent Total Time Spent with Patient: Total time spent is greater than 50% in coordination of care (as documented) at patient's floor/unit and/or counseling patient: Coding Level of Care Code 56338 Initial Inpt Care Lvl 3 Diagnoses Acute cerebrovascular accident (CVA) I63.9 Facial droop due to acute cerebrovascular accident (CVA) I63.9; R29.810 Mild cognitive impairment G31.84 Atrial fibrillation I48.91 Vertebral artery stenosis I65.09 Time Spent (min) 100 Comment add modifiers as able
[2021-04-26] MEDS: ASPIRIN 81 MG ECTAB PO SCH (12:09)
[2021-04-26] MEDS: GALANTAMINE HYDROBROMIDE 8 MG CAPER PO SCH (12:09)
[2021-04-26] MEDS: VENLAFAXINE HCL XR 150 MG CAPXR PO SCH (12:09)
[2021-04-26] MEDS: METOPROLOL SUCC 50MG EXT REL TAB PO SCH (12:10)
[2021-04-26] MEDS: FUROSEMIDE 40 MG TAB PO SCH (12:10)
[2021-04-26] MEDS: modafiniL 100 MG TAB PO SCH (12:12)
--- NOTE | 2021-04-26 12:35 | Hospitalist Progress Note ---
Date of Service April 26, 2021 Assessment & Plan (1) Acute CVA (cerebrovascular accident): Plan: Sharath Delgado is a 70-year-old male with a past medical history of multivessel CAD, ischemic cardiomyopathy, heart failure with reduced ejection fraction, CVA, hypertension, hyperlipidemia, hypothyroidism, alcohol use, A. fib on Eliquis anticoagulation, and sleep apnea with recent hospital discharges from a 04/17 for CVA and then again on 04/19 after an admission for AHRF 2/2 CHF who presents with sx of acute CVA/facial droop CVA, stroke alert CTA/CThead: Small subacute/evolving infarcts of the right parietal lobe and posterior left frontal lobe previously noted on 04/14/2021 CT. Otherwise no hemorrhage, mass-effect, or acute ischemia appreciated on CT. MRI:A small focus of restricted diffusion in the posterior right frontal lobe is new from 04/12/2021 and consistent with an acute to subacute infarct EKG: A. fib, no acute ST segment changes, QTC 398 Patient with exacerbation of right-sided facial droop, dysarthria deficits from prior CVA on admission, suspected cardioembolic No leukocytosis Hemoglobin normal Creatinine: Baseline 1.31.5, 1.57 on admit. Trend. Troponin: Normal Telestroke recommendations from Dr. Tillman reviewed. Recommend magnesium greater than 2, obtaining MRI, [facility] neuro consult and consideration of conversion to NOAC to warfarin although this is not mandatory. Recommended to continue on both antiplatelet medications at this time.- - Discussed with neurology, will continue on dual antiplatelet and apixaban at this time. Considered switch to warfarin/other anticoagulant however patient does not wish to do this, and with concerns for compliance We will continue apixaban. Will monitor overnight, if doing well possible progression to discharge tomorrow PT/OT (2) Atrial fibrillation: Plan: Atrial fibrillation Anticoagulated with Eliquis Continue metoprolol as above Continue digoxin 0.125 mg daily Adequate rate control at time of assessment (3) CAD (coronary artery disease): Plan: Coronary artery disease with ischemic cardiomyopathy and heart failure with reduced ejection fraction TTE 03/2021 at prior admission, severe hypokinesis of LV, EF<20% History of PCI with CHULA to LCx and LAD, and repeat PCI with CHULA to LAD 2016 Continue aspirin Continue ticagrelor Continue atorvastatin 80 mg p.o. nightly Continue home metoprolol succinate 100 mg p.o. every morning Continue home Lasix (4) Chronic systolic heart failure: Plan: Continue CAD management as above No acute exacerbation appreciated on admitting exam, appears near euvolemic (5) Ischemic cardiomyopathy: Plan: See CAD above (6) Mild cognitive impairment: Plan: Continue home modafinil and galantamine (7) Moderate obstructive sleep apnea: Plan: CPAP nightly as needed (8) Hypertension: Plan: Permissive hypertension Normotensive at assessment (9) Hyperlipidemia: Plan: Continue statin as above (10) Hypothyroidism: Plan: Hypothyroidism Continue home Synthroid 75 mcg daily Plan: Diet: Heart healthy once able to pass stroke dysphagia screening DVT prophylaxis: Anticoagulated as above CODE STATUS: Full code Disposition: PCU stroke protocol monitoring Admission and Anticipated Discharge Date Admission Date: April 25, 2021 Subjective 6 seen at bedside. Reports he is eating breakfast, and feels better now that he is able to have a meal. Continues to have some right-sided droop and dysarthria, reports that this is better than yesterday but still slightly worse than when he was discharged previously. Denies fever, chills, sweats, chest pain, chest pressure, extremity weakness, vision change. Denies headache. Case discussed with neurology, will continue to follow overnight and monitor and possible discharge tomorrow if doing well. Discussed remaining on DOAC versus converting warfarin, patient does not wish to be on warfarin and with concerns for need for monitoring/compliance. Review of Systems Review of Systems: All systems reviewed & are unremarkable except as noted in Subjective Physical Exam Physical Exam: General: A&Ox3. NAD. Cooperative. HEENT: Atraumatic, normocephalic. Neuro as below. Pulm: CTAB A&P. -wheezes, -rales, -rhonchi. Symmetrical chest rise. No increased work of breathing. No respiratory distress. Cardiac: Irregularly irregular,-mrg. Radial pulses intact and symmetrical. Abdominal: Nontender, nondistended, soft. BS present. Neuro: Pupils equal and reactive to light. Visual acuity grossly intact. EOM intact without nystagmus. Intact sensation to V1V3. Improved but still present right-sided facial droop, some air leak on cheek puff. Normal hearing to speech, head turn intact. Shoulder internal and external rotation, elbow flexion/extension, solutions market consultant strength, wrist flexion/extension, hip flexion, ankle dorsiflexion/plantarflexion are all intact with full strength bilaterally and without asymmetry. Sensation to soft touch is intact in hands and feet without asymmetry. Results & Data Results & Data ([facility]) Vital Signs (Past 12 Hours) Vital Signs Temp Pulse Resp BP BP Pulse Ox 04/26/21 11:48 36.4 C L 68 20 120/85 96 04/26/21 07:02 36.4 C L 56 L 18 103/71 93 04/26/21 03:32 36.9 C 58 L 16 118/74 96 PG Care Time/CCT Total # of Minutes Spent Total Time Spent with Patient: Total time spent is greater than 50% in coordination of care (as documented) at patient's floor/unit and/or counseling patient: Coding Level of Care Code 44445 Subseq Hosp Care Lvl 2 Diagnoses Acute CVA (cerebrovascular accident) I63.9 Atrial fibrillation I48.91 CAD (coronary artery disease) I25.118 Coronary Disease-Associated Artery/Lesion type: [place] artery [place] vs. transplanted heart: [place] heart Associated angina: with stable angina Chronic systolic heart failure I50.22 Ischemic cardiomyopathy I25.5 Mild cognitive impairment G31.84 Moderate obstructive sleep apnea G47.33 Hypertension I10 Hyperlipidemia E78.5 Hypothyroidism E03.9 (1) CAD (coronary artery disease) Coronary Disease-Associated Artery/Lesion type: [place] artery [place] vs. transplanted heart: [place] heart Associated angina: with stable angina Qualified Code(s): I25.118 - Atherosclerotic heart disease of [place] coronary artery with other forms of angina pectoris
[2021-04-26] MEDS ORDERED: DIGOXIN 0.125 MG TAB PO SCH (16:00)
--- NOTE | 2021-04-26 20:49 | Electrocardiogram Report ---
Test Reason : Blood Pressure : / mmHG Vent. Rate : 073 BPM Atrial Rate : 375 BPM P-R Int : 000 ms QRS Dur : 090 ms QT Int : 362 ms P-R-T Axes : 000 -24 065 degrees QTc Int : 398 ms Poor data quality, interpretation may be adversely affected Atrial fibrillation Nonspecific T wave abnormality Abnormal ECG When compared with ECG of 17-APR-2021 18:00, Vent. rate has decreased BY 36 BPM Confirmed by Alan Rowan ([id number]) on 04/26/2021 8:48:54 PM Referred By: REFERRED SELF Confirmed By:Alan Rowan
[2021-04-27] MEDS: LEVOTHYROXINE SODIUM 75 MCG TABLET PO SCH (05:54)
[2021-04-27 06:57] LABS: Basophils # (auto) 0.07 K/uL (0-0.2); Basophils % (auto) 0.9 %; Eosinophils # (auto) 0.39 K/uL (0-0.5); Hematocrit (blood only) 49.6 % (42-52); Hemoglobin 16.5 g/dL (14.0-18.0); Lymphocytes # (auto) 2.29 K/uL (1.2-3.4); Lymphocytes % (auto) 29.5 %; Mean Corpuscular Hemoglobin 31.8 pg (25-34); Mean Corpuscular Hgb Conc 33.3 g/dL (32-36); Mean Corpuscular Volume 95.6 fL (80-100); Mean Platelet Volume 11.6 fL (7.4-10.4); Monocytes # (auto) 0.66 K/uL (0.11-0.59); Monocytes % (auto) 8.5 %; Neutrophils # (auto) 4.34 K/uL (1.4-6.5); Neutrophils % (auto) 56.1 %; Platelet Count 344 K/uL (130-400); RDW Standard Deviation 49.1 fL (36.4-46.3); Red Blood Count 5.19 M/uL (4.7-6.1); White Blood Count 7.75 K/uL (4.8-10.8)
[2021-04-27 07:24] LABS: BUN Creatinine Ratio 14.8 (10-20); Calcium 9.3 mg/dl (8.5-10.1); Est GFR (African American) 49.5 ml/min; Est GFR (Non-African American) 42.7 ml/min
--- NOTE | 2021-04-27 08:03 | Discharge Summary ---
Date of Service April 27, 2021 Admission HPI Per Admitting Provider Sharath Delgado is a 70-year-old male with a past medical history of multivessel CAD, ischemic cardiomyopathy, heart failure with reduced ejection fraction, CVA, hypertension, hyperlipidemia, hypothyroidism, alcohol use, A. fib on Eliquis anticoagulation, and sleep apnea with recent hospital discharges from a 04/17 for CVA and then again on 04/19 after an admission for AHRF 2/2 CHF who presents with sx of acute CVA/facial droop Patient presented as a stroke alert to the emergency department with slow speech, difficulty chewing/swallowing, and facial droop. Patient was recently admitted for stroke on 04/12 and was placed on aspirin/Brilinta and is on Eliquis for A. fib. Stroke was thought to be cardioembolic. Also recently seen for hypoxia due to exacerbation of CHF Prior stroke was of the right parietal and left frontal lobe Patient last known normal was approximately 12 PM2 PM day of admission. Following his prior stroke he had residual speech deficit and some right-sided facial droop. He has been taking his dual antiplatelet and anticoagulant therapy as prescribed. Morning of admission however his family noticed a severe worsening of the symptoms prompting their return to the emergency department. Patient is seen at the bedside with his son. He denies headache, chest pain, chest pressure, shortness of breath, difficulty breathing, nausea, vomiting, diarrhea, abdominal pain, arm weakness, lower extremity weakness. He does endorse difficulty speaking, swallowing, and smiling. Denies other deficits. Reports his vision/hearing is intact. Denies leg swelling. Denies orthopnea. Telestroke recommendations from Dr. Tillman reviewed. Recommend magnesium greater than 2, obtaining MRI, [facility] neuro consult and consideration of conversion to NOAC to warfarin although this is not mandatory. Recommended to continue on both antiplatelet medications at this time. Medical History: Reviewed Medications: Reviewed. Has taken morning and midday meds. Surgical History: Reviewed Allergies: Reviewed Social History: Former smoker, denies alcohol use, denies recreational drug use Code Status: Full code, confirmed with son at bedside Admission Exam Per Admitting Provider General: A&Ox3. NAD. Cooperative. HEENT: Atraumatic, normocephalic. Neuro as below. Pulm: CTAB A&P. -wheezes, -rales, -rhonchi. Symmetrical chest rise. No increased work of breathing. No respiratory distress. Cardiac: Irregularly irregular,-mrg. Radial pulses intact and symmetrical. Abdominal: Nontender, nondistended, soft. BS present. Neuro: Pupils equal and reactive to light. Visual acuity grossly intact. EOM intact without nystagmus. Intact sensation to V1V3. Face is with a right- sided droop, right lip droop, loss of air from the right side on cheek puff, and failure to raise the right commissure on smile. Normal hearing to speech, is able to protrude tongue midline, head turn intact. Shoulder internal and external rotation, elbow flexion/extension, dam operator strength, wrist flexion/extension, hip flexion, ankle dorsiflexion/plantarflexion are all intact with full strength bilaterally and without asymmetry. Sensation to soft touch is intact in hands and feet without asymmetry. Principal Diagnosis Acute CVA without TPA Discharge Exam General: A&Ox3. NAD. Cooperative. HEENT: Atraumatic, normocephalic. Neuro as below. Pulm: CTAB A&P. -wheezes, -rales, -rhonchi. Symmetrical chest rise. No increased work of breathing. No respiratory distress. Cardiac: Irregularly irregular,-mrg. Radial pulses intact and symmetrical. Abdominal: Nontender, nondistended, soft. BS present. Neuro: Pupils equal and reactive to light. Visual acuity grossly intact. EOM intact without nystagmus. Intact sensation to V1V3. Mild right-sided facial droop, some air leak on cheek puff. Normal hearing to speech, head turn intact. Shoulder internal and external rotation, elbow flexion/extension, dam operator strength, wrist flexion/extension, hip flexion, ankle dorsiflexion/plantarflexion are intact with full strength bilaterally and without asymmetry. Sensation to soft touch is intact in hands and feet without asymmetry. Discharge Data Allergies Allergy/AdvReac Type Severity Reaction Status Date / Time donepezil Allergy Unknown SEE COMMENT Verified 04/25/21 16:51 duloxetine [From Cymbalta] Allergy Unknown SEE COMMENT Verified 04/25/21 16:51 Consultations 04/25/21 17:07 ED Decision to Admit Stat 04/25/21 20:02 Consult Neurology Routine Ordered Studies 04/25/21 16:31 CT angio head w con Stat CT angio neck with con Stat CT head/brain wo con Stat 04/25/21 20:02 MR brain wo con Routine Hospital Course (1) Acute CVA (cerebrovascular accident): Sharath Delgado is a 70-year-old male with a past medical history of multivessel CAD, ischemic cardiomyopathy, heart failure with reduced ejection fraction, CVA, hypertension, hyperlipidemia, hypothyroidism, alcohol use, A. fib on Eliquis anticoagulation, and sleep apnea with recent hospital discharges from a 04/17 for CVA and then again on 04/19 after an admission for AHRF 2/2 CHF who presents with sx of acute CVA/facial droop To do as outpatient: 1. Follow-up with PCP 2. Follow-up with neurology 3. Case discussed with [facility] [place] [facility], may continue to consider a switch from apixaban to warfarin therapy in the future, although this is not str ictly required. However patient has an strong aversion to warfarin and wishes to avoid it. In addition would require adjustments and monitoring, and at risk for impaired therapeutic effect in the setting of compliance. Reasonable to continue apixaban at this time on discussion with stroke 4. Patient with normal creatinine on admission, a elevated creatinine/BUN ratio and creatinine at time of discharge. Discussed observation for DREW versus outpatient recheck. Patient would like to continue orals and recheck as outpatient, given that he is otherwise clinically well this was reasonable. Recheck BMP within 1 week as outpatient at 5 PCP follow-up. CVA without TPA, suspected cardioembolic. Patient with negative initial CT, very small focus of restricted diffusion on follow-up MRI. CTA/CThead: Small subacute/evolving infarcts of the right parietal lobe and posterior left frontal lobe previously noted on 04/14/2021 CT. Otherwise no hemorrhage, mass-effect, or acute ischemia appreciated on CT. MRI:A small focus of restricted diffusion in the posterior right frontal lobe is new from 04/12/2021 and consistent with an acute to subacute infarct EKG: A. fib, no acute ST segment changes, QTC 398 Patient with exacerbation of right-sided facial droop, dysarthria deficits from prior CVA on admission, suspected cardioembolic No leukocytosis Hemoglobin normal Creatinine: Baseline 1.31.5, 1.57 on admit. Trend. Troponin: Normal Telestroke recommendations from Dr. Tillman reviewed. Recommend magnesium greater than 2, obtaining MRI, [facility] neuro consult and consideration of conversion to NOAC to warfarin although this is not mandatory. Recommended to continue on both antiplatelet medications at this time.- - Discussed with neurology, will continue on dual antiplatelet and apixaban at this time. Considered switch to warfarin/other anticoagulant however patient does not wish to do this, and with concerns for compliance We will continue apixaban. Progressed well overnight and was discharged to care with family. Was ambulating normally at discharge. (2) Atrial fibrillation: Atrial fibrillation Anticoagulated with Eliquis Continue metoprolol as above Continue digoxin 0.125 mg daily Adequate rate control at time of assessment (3) CAD (coronary artery disease): Coronary artery disease with ischemic cardiomyopathy and heart failure with reduced ejection fraction TTE 03/2021 at prior admission, severe hypokinesis of LV, EF<20% History of PCI with CHULA to LCx and LAD, and repeat PCI with CHULA to LAD 2016 Continue aspirin Continue ticagrelor Continue atorvastatin 80 mg p.o. nightly Continue home metoprolol succinate 100 mg p.o. every morning Continue home Lasix (4) Chronic systolic heart failure: Continue CAD management as above No acute exacerbation appreciated on admitting exam, appears near euvolemic (5) Ischemic cardiomyopathy: See CAD above (6) Mild cognitive impairment: Continue home modafinil and galantamine (7) Moderate obstructive sleep apnea: CPAP nightly as needed (8) Hypertension: Permissive hypertension Normotensive at assessment (9) Hyperlipidemia: Continue statin as above (10) Hypothyroidism: Hypothyroidism Continue home Synthroid 75 mcg daily Diet: Heart healthy once able to pass stroke dysphagia screening DVT prophylaxis: Anticoagulated as above CODE STATUS: Full code Disposition: PCU stroke protocol monitoring Total Time Total Time Spent Total Time Spent (In Minutes): Total time spent day of discharge including direct patient care, coordination of care, documentation, and review of labs and images 35 minutes. Discharge Plan Discharge Items Patient Disposition: Home - Self-Care Reason For Visit: CVA W/O TPA Discharge Diagnosis: CVA without TPA Activity: Per Instructions section Non-emergency contact: Primary Care Provider and Neurologist Call non-emergency contact if: you have any medication questions, your symptoms worsen, your pain is not controlled and you have a fever Follow-up/Referrals: Raul Conklin MD [Physician] - (Dr. Conklin is unavailable. Follow up appointment scheduled with Jennifer Mcelroy PA-C.) Thi Montaño MD [Primary Care Provider] - (Dr. Fiordaliza Joy is unavailable. Follow up appointment scheduled with Nery Vázquez PA-C.) Nery Vázquez PA-C [Physician User Support Analyst Supervisor] - 05/06/21 1:30 pm (Dr. Montaño is unavailable. Please follow up with Nery Vázquez PA-C on Wednesday05/06/21 at 1:30 pm. Please arrive to the office at 1:15 pm for your appointment. If you are unable to keep this appointment, please call the office to reschedule at [phone].) Jennifer Mcelroy PA-C [Physician User Support Analyst Supervisor] - 05/19/21 11:45 am (Dr. Conklin is unavailable. Please follow up with Jennifer Mcelroy PA-C on Wednesday05/19/21 at 11:45 am. Please arrive to the office at 11:30 am for your appointment. If you are unable to keep this appointment, please call the office to reschedule at [phone].) Diet: Heart Healthy Addtl Attending Provider Instructions: You are seen in the hospital for worsening facial droop and evaluated for stroke. Your CT scan did not show any new strokes, however follow-up MRI showed a small area of the brain consistent with a small new stroke. Your symptoms improved overnight, but did not completely resolve. Your case was discussed with both [facility] and [facility] neurology. It is recommended that you continue both your antiplatelet medicines, aspirin and ticagrelor. It is recommended that you continue on a blood thinner as it is most likely your strokes were of cardioembolic (from the heart) origin. A switch from apixaban to another blood thinner such as warfarin was considered, and may still be considered in the future but was deferred at time of discharge. Please continue to take your apixaban as below. You are seen by physical therapy/Occupational Therapy during admission. Your stroke like deficits were improving, although not yet resolved. These did not affect your extremity strength or ability to ambulate. From a strength perspective it was recommended that you can return home. Due to your recurrent strokes, high risk, and multiple medical events recently was recommended that you have family live with you or stay with family on return home while you continue to recover in case an additional event should occur. Your kidney function was normal at admission, but was slightly elevated on discharge to 1.60. This was discussed, rather than monitor in hospital you preferred to continue to drink oral fluids and stay hydrated, with a recheck as outpatient. Please continue to drink at least 60 ounces of water daily, and have a BMP to recheck creatinine function within 1 week. Your primary care provider should order this lab for you. A follow-up appointment is being scheduled for you with your primary care provider as above, and with neurology as above. You should be seen by your primary care provider within 1 week, and by neurology within 1 month. If you develop any new or worsening symptoms including fever, chills, sweats, chest pain, chest pressure, difficulty breathing, weakness, facial droop, uncontrolled nausea/vomiting, rash, wheezing, passing out or nearly passing out, bleeding, black/bloody bowel movements, or other new or concerning symptoms please call your primary care physician, or call 911 for re-evaluation in the emergency department if you are very concerned. Pending Studies at Discharge: No Stand-Alone Forms: My [facility] [employer], Smoking Cessation Medications and DC Order Prescriptions: Continued baclofen 10 mg tablet 10 mg PO BID 30 Days Qty: 60 RF: 5 modafinil 100 mg tablet 100 mg PO QAM Qty: 30 RF: 5 Brilinta 90 mg tablet 90 mg PO BID Qty: 60 RF: 11 galantamine 24 mg capsule,ext rel. pellets 24 hr 24 mg PO QAM 30 Days Qty: 30 RF: 2 venlafaxine 150 mg capsule,extended release 24hr 150 mg PO DAILY Qty: 30 RF: 5 apixaban 5 mg tablet 5 mg PO BID RF: 0 vitamin E 100 unit Capsule 100 unit PO DAILY RF: 0 cyanocobalamin (vitamin B-12) [Vitamin B-12] 1,000 mcg Tablet 1,000 mcg PO PM RF: 0 thiamine HCl (vitamin B1) 100 mg Tablet 100 mg PO BID RF: 0 nitroglycerin [Nitrostat] 0.4 mg Tablet, Sublingual 0.4 mg Sublingual UD PRN (Reason: Chest Pain) RF: 0 garlic Tablet 1,000 mg PO PM RF: 0 cholecalciferol (vitamin D3) [Vitamin D3] 1,000 unit Tablet 1,000 unit PO QAM RF: 0 coenzyme Q10 100 mg Tablet 100 mg PO QAM RF: 0 biotin 1 mg tablet 1 mg PO QAM RF: 0 levothyroxine 75 mcg capsule 75 mcg PO DAILYBB RF: 0 furosemide 40 mg tablet 40 mg PO QAM Qty: 30 RF: 0 aspirin 81 mg Tablet,Delayed Release (Dr/Ec) 81 mg PO DAILY 21 Days Qty: 21 RF: 0 digoxin [Digitek] 125 mcg (0.125 mg) Tablet 0.125 mg PO DAILY@1600 30 Days Qty: 30 RF: 0 metoprolol succinate 100 mg tablet extended release 24 hr 100 mg PO QAM 30 Days Qty: 30 RF: 3 atorvastatin 80 mg tablet 80 mg PO HS RF: 0 Discharge Orders: Discharge Order (Routine); Ordered 04/27/21 Ordered By: Praveen Tolentino Admission Data Admit Date/Time: 04/25/21 17:27 Attending Provider: Praveen Tolentino Admit Provider: Praveen Tolentino Primary Care Provider: Thi Montaño V. Other Providers: Praveen Tolentino ; Raul Conklin Other Interventions: Discharge Summary Assessment (RN) Last Done: 04/27/21 09:15 Coding Level of Care Code D/C DAY MANAGEMENT >30 MINS Diagnoses Acute CVA (cerebrovascular accident) I63.9 Atrial fibrillation I48.91 CAD (coronary artery disease) I25.118 Associated angina: with stable angina Coronary Disease-Associated Artery/Lesion type: [place] artery [place] vs. transplanted heart: [place] heart Chronic systolic heart failure I50.22 Ischemic cardiomyopathy I25.5 Mild cognitive impairment G31.84 Moderate obstructive sleep apnea G47.33 Hypertension I10 Hyperlipidemia E78.5 Hypothyroidism E03.9
[2021-04-27] MEDS: APIXABAN 5 MG TABLET PO SCH (08:10)
[2021-04-27] MEDS: ASPIRIN 81 MG ECTAB PO SCH (08:10)
[2021-04-27] MEDS: GALANTAMINE HYDROBROMIDE 8 MG CAPER PO SCH (08:10)
[2021-04-27] MEDS: FUROSEMIDE 40 MG TAB PO SCH (08:10)
[2021-04-27] MEDS: VENLAFAXINE HCL XR 150 MG CAPXR PO SCH (08:10)
[2021-04-27] MEDS: BACLOFEN 10 MG TAB PO SCH (08:11)
[2021-04-27] MEDS: TICAGRELOR 90 MG TAB PO SCH (08:11)
[2021-04-27] MEDS: METOPROLOL SUCC 50MG EXT REL TAB PO SCH (08:11)
[2021-04-27] MEDS: modafiniL 100 MG TAB PO SCH (08:15)
[2021-04-27] MEDS ORDERED: STROKE PATIENT DISCHARGE STA (08:58)
== END 2021-04-27 12:56 | disposition home or self-care (01) | DRG 65 ==
LOC: ED 16:15 → 2S 17:27

== ENCOUNTER 2022-12-08 16:06 | Inpatient (IN) ==
[2022-12-08] MEDS ORDERED: METOPROLOL TARTRATE 1 MG/ML VIAL IV STA ×3 (16:10→18:13)
--- NOTE | 2022-12-08 16:12 | Emergency Department Note ---
Impression & Plan Atrial fibrillation with rapid ventricular response, Pulmonary edema ED Provider Note Name: CHEYANNE BECERRA Age: 72 Sex: M Arrives Via: Ambulance Informant: Patient, son, records ED Provider: Armando Pina MD Chief Complaint: Shortness of breath Impression: As per impressions above Medical Decision Makin-year-old pleasant gentleman who has a long cardiac history arrives for evaluation of worsening shortness of breath, weight gain, leg swelling, weakness. Patient was seen at clinic and sent immediately to ER via EMS. On arrival he is in A-fib RVR with heart rate in the 160s he has diffuse crackles all lung martinez consistent with pulmonary edema and congestive heart failure, and he is noting on and off nausea for the last week causing him not to be takin g his medications as prescribed. Of note the nausea does not seem to be significantly associated with abdominal pain and he has no pain at this time. Soft nontender abdomen without peritonitis. Chest x-ray confirms pulmonary edema. There was some difficulty getting labs and he was empirically given IV Lasix. Heart rate was kept under control with IV Lopressor. Hospitalist consulted for further management Prior Medical Record and Triage/Nursing Notes reviewed by Me External chart reviewed by me including outpatient record and PCP note from today Differentials: Arrhythmia, Pneumonia, pneumothorax, COPD, CHF, infections, cardiac ischemia, pulmonary embolism, musculoskeletal, gastrointestinal, as well as other pathologies. Vital Signs: reviewed and remarkable for tachycardia, hypoxia Interventions: Lopressor 5 mg IV x2, Lasix 40 mg IV Labs:Reviewed by me Imaging:Reviewed chest x-ray as per my interpretation bilateral congestive f ailure consistent with pulmonary edema. EKG:As per my interpretation. Indication palpitations. Atrial fibrillation 160 bpm. No overt ischemia. When compared to EKG of April 25, 2021 his rate is significantly higher. Cardiac/Tele Monitoring: Cardiac Monitoring: An Order was placed for continuous cardiac monitoring. The monitor shows a rate of 115 with a afib rvr rhythm. Consults:Hospitalist Plan: Disposition:Hospitalization. Condition: Fair History of Present Illness:72-year-old male arrives for evaluation of shortness of breath. Patient notes for the last week worsening shortness of breath, fatigue, palpitations. He started having some chest tightness and upper abdominal tightness as well. He was seen at his PCP office and advised to come to the ER via ambulance. Patient states he cannot walk down the bernal without severely short of breath in fact he cannot even walk 2 steps. He states he is gained about 10 pounds in the last 5 to 7 days. Denies any falls, trauma, injuries. Denies any current chest pain or abdominal pain. He denies any fevers, chills, nausea, vomiting, back pain, leg pain, urinary/bowel symptoms. Admits he has not really been taking his medications as prescribed. Past History:See Below Home Medications:See Below Allergies:See Below Vitals:Blood Pressure: 140/70, Pulse 160, RR 16, T 36.4C, O2 95% on 2L NC Physical Exam: GENERAL: Patient is unwell appearing and in moderate distress. EYES: No scleral icterus, unremarkable pupils. ENT: Mucous membranes moist, no nasal congestion. NECK: No masses appreciated, nomeningismus, trachea is midline. RESPIRATORY: Patient is moderately tachypneic/dyspneic with wet sounds throughout CARDIOVASCULAR: Patient is tachycardic and irregular GASTROINTESTINAL: Abdomen soft, non-tender, no peritonitis. Mild distended abdomen EXTREMITIES: Normal motion all extremities, no cyanosis, pitting edema bilateral lower legs to knees NEUROLOGIC: Alert and oriented, no focal neurologic deficit appreciated SKIN: No rash, no jaundice, no diaphoresis. PSYCH: Appropriate GCS: 15 ED Course: Times/Reassessments: Patient is significantly improved with heart rate control and nasal cannula O2. Agreeable to hospitalization. Critical Care: I have personally spent 30 minutes of critical care time in the direct management of this patient. Afib RVR in setting of pulmonary edema. This was a life/limb threatening event. This 40 minutes is in excess of all separately billable procedures. Armando Pina MD Past Med/Surg History Medical History (Updated 12/08/22 @ 22:57 by Armando Pina MD) Abnormal LFTs Acute cerebrovascular accident (CVA) Acute CVA (cerebrovascular accident) Acute kidney injury Acute on chronic systolic (congestive) heart failure Acute respiratory failure with hypoxia Altered mental state Aneurysm BRAIN 2008- [facility] /UNSURE OF SIZE- FOLLOWS DR. BAKER Atrial flutter with rapid ventricular response Bronchitis CHF exacerbation Chronic systolic heart failure Degenerative disc disease Elevated TSH Exposure to COVID-19 virus H/O arterial ischemic stroke residual cognitive impairment. APR 25 2008/ [facility] /PLACED ON BLOOD THINNER Hypertension Hypoxia Lumbar radiculopathy Myocardial Infarction 2016-[facility]- CATH- STENT- FOLLOWS WITH DR. BAKER Nasal septal deviation Osteoarthritis Pulmonary edema Sleep apnea NO CPAP Tinnitus Transaminitis Surgical History Aspiration into airway PER PATIENT, THIS HAPPENED AFTER E.T TUBE CAME OUT IN RECOVERY, THINKS IT WAS 2005, DOES NOT REMEMBER WHAT PROCEDURE BUT THINKS IT WAS AT [facility]- POOR HISTORIAN (HX STROKE) H/O hernia repair H/O neck surgery History of cardioversion [facility] 2017 History of colonoscopy History of deviated nasal septum WITH REPAIR History of left cataract surgery Hx of umbilical hernia repair S/P cardiac catheterization ONE @ [facility]/ ONE @ [facility] - 2016 & 2017- [facility]- [place] Family History Mother Diabetes Depression Unknown No problems noted. Father Myocardial infarction Grandfather (Paternal) Myocardial infarction Brother Myocardial infarction Sister Depression Other No family history of adverse response to anesthesia No family history of bleeding disorder Denies family history of Colon cancer Ovarian cancer Prostate cancer Breast cancer Social History Smoking Status: Former smoker Age Started Using Tobacco: 22; Age Quit Using Tobacco: 37; Cigarettes Per Day: 30 YEARS AGO; Second Hand Exposure: No; Do You Dip or Chew Tobacco: No; Hx Alcohol Use: No Hx Substance Use: No Preferred Language: Divehi Communication Ability: Effective Visual Impairment: No Limitations Hearing Ability: Normal Planishing Press Operator Required: Voice Beliefs That Will Affect Care: None marital status: Current Living Situation: Alone current occupational status: retired and disabled How many Children do You have: 1 Feels Safe at Home: Yes Childhood Exposure to Second-Hand Smoke: Yes Dental Care, Regularly: Yes Physical Activity Frequency: Daily Seatbelt Use: always Sunscreen Use: No Assistive Devices: None Allergies Allergies Allergy/AdvReac Type Severity Reaction Status Date / Time donepezil Allergy Unknown SEE COMMENT Verified 12/04/22 11:21 duloxetine [From Cymbalta] Allergy Unknown SEE COMMENT Verified 12/04/22 11:21 Home Meds Home Medications Medication Instructions Recorded Confirmed coenzyme Q10 100 mg tablet 100 mg PO QAM 12/31/17 12/08/22 nitroglycerin 0.4 mg sublingual 0.4 mg sublingual UD PRN Chest Pain 12/31/17 12/08/22 tablet (Nitrostat) apixaban 5 mg tablet 5 mg PO BID 12/04/22 12/08/22 aspirin 81 mg tablet,delayed 81 mg PO QAM 12/08/22 12/08/22 release cholecalciferol (vitamin D3) 25 25 mcg PO DAILY 12/08/22 12/08/22 mcg (1,000 unit) capsule (Vitamin D3) digoxin 125 mcg (0.125 mg) tablet 125 mcg PO HS 12/08/22 12/08/22 sacubitril 97 mg-valsartan 103 mg 1 tab PO AMHS 12/08/22 12/08/22 tablet (Entresto) spironolactone 25 mg tablet 25 mg PO QAM 12/08/22 12/08/22 venlafaxine 150 mg 150 mg PO QAM 12/08/22 12/08/22 capsule,extended release 24 hr vitamin B complex 1 tab PO DAILY 12/08/22 12/08/22 Previous Rx's Medication Instructions Recorded levothyroxine 75 mcg tablet 75 mcg PO DAILYBB #90 tabs 01/13/22 atorvastatin 80 mg tablet 80 mg PO HS #90 tabs 04/03/22 metoprolol succinate 200 mg 200 mg PO QAM 90 days #90 tabs 04/07/22 tablet,extended release 24 hr ticagrelor 90 mg tablet (Brilinta) 90 mg PO BID #180 tabs 04/24/22 empagliflozin 10 mg tablet 10 mg PO DAILY #30 tabs 08/25/22 (Jardiance) modafinil 100 mg tablet 100 mg PO QAM #30 tabs 10/15/22 galantamine 24 mg 24 hr 24 mg PO QAM 30 days #30 caps 11/16/22 capsule,extended release furosemide 20 mg tablet (Lasix) 20 mg PO DAILY PRN weight gain, 11/23/22 edema, dyspnea #30 tabs furosemide 20 mg tablet 40 mg PO QAM edema #60 tabs 11/24/22 Results & Data (ED) Vital Signs Vital Signs - 24 hr 12/08/22 16:36 12/08/22 16:39 12/08/22 16:01 Temperature 37.1 C Temperature Source Oral Pulse Rate 126 H 116 H Pulse Rate [Bilateral] 105 H Respiratory Rate 20 Blood Pressure 125/77 Blood Pressure [Right Arm] 125/77 Blood Pressure Mean Blood Pressure Mean [Right Arm] 93 Pulse Oximetry 93 Oxygen Delivery Method Oxygen Flow Rate Sepsis Recent Fever Within 48 Hours Sepsis New/Unexplained Change in Mental Status Sepsis Action Taken by Nursing 12/08/22 16:01 12/08/22 17:01 12/08/22 18:07 Temperature 37.1 C Temperature Source Oral Pulse Rate 130 H 110 H Pulse Rate [Bilateral] 115 H Respiratory Rate 20 27 H Blood Pressure 125/77 122/89 Blood Pressure [Right Arm] 105/85 Blood Pressure Mean 93 Blood Pressure Mean [Right Arm] 91 Pulse Oximetry 92 95 Oxygen Delivery Method Room Air Nasal Cannula Oxygen Flow Rate 2 Sepsis Recent Fever Within 48 Hours No Sepsis New/Unexplained Change in Mental Status N/A Sepsis Action Taken by Nursing No Action Required 12/08/22 19:00 12/08/22 19:18 12/08/22 19:19 Temperature Temperature Source Pulse Rate 115 H 115 H Pulse Rate [Bilateral] 100 H Respiratory Rate 28 H Blood Pressure 110/87 110/57 L Blood Pressure [Right Arm] 112/77 Blood Pressure Mean Blood Pressure Mean [Right Arm] 88 Pulse Oximetry 100 Oxygen Delivery Method Room Air Oxygen Flow Rate Sepsis Recent Fever Within 48 Hours Sepsis New/Unexplained Change in Mental Status Sepsis Action Taken by Nursing Laboratory Data 12/08/22 16:45 12/08/22 18:26 Lab Results 12/08/22 12/08/22 12/08/22 Range/Units 16:45 16:45 16:45 WBC 9.80 (4.8-10.8) K/ul RBC 4.73 (4.70-6.10) M/uL Hgb 16.2 (14.0-18.0) g/dl Hct 46.1 (42.0-52.0) % MCV 97.5 (80.0-100.0) fL MCH 34.2 H (25.0-34.0) pg MCHC 35.1 (32.0-36.0) g/dL RDW Std Deviation 46.5 H (36.4-46.3) fL RDW Coeff of Sonja 13.1 (11.5-14.5) % Plt Count 219 (130-400) K/uL MPV 13.0 H (9.4-12.4) fL Immature Gran % (Auto) 0.3 % Neut % (Auto) 77.8 % Lymph % (Auto) 10.8 % [place] % (Auto) 9.2 % Eos % (Auto) 1.2 % Baso % (Auto) 0.7 % Neut # (Auto) 7.62 H (1.40-6.50) K/uL Lymph # (Auto) 1.06 L (1.2-3.4) K/uL [place] # (Auto) 0.90 H (0.11-0.59) K/uL Eos # (Auto) 0.12 (0-0.50) K/uL Baso # (Auto) 0.07 (0-0.2) K/uL Immature Gran # (Auto) 0.03 (0.01-0.20) K/uL VBG pH (7.36-7.41) VBG pCO2 (38-50) mmHg VBG pO2 mmHg VBG HCO3 mmol/L VBG O2 Saturation % VBG Base Excess mEq/L Sodium Cancelled Potassium Cancelled Chloride Cancelled Carbon Dioxide Cancelled Anion Gap Cancelled BUN Cancelled Creatinine Cancelled Est Cr Clr Drug Dosing Cancelled Est GFR ( Amer) Cancelled Est GFR (Non-Af Amer) Cancelled BUN/Creatinine Ratio Cancelled Glucose Cancelled Calcium Cancelled Magnesium Cancelled Total Bilirubin Cancelled Direct Bilirubin Cancelled AST Cancelled ALT Cancelled Alkaline Phosphatase Cancelled Troponin I High Sens Cancelled B-Natriuretic Peptide (0-100) pg/ml Total Protein Cancelled Albumin Cancelled Lipase Cancelled Digoxin Cancelled 12/08/22 12/08/22 12/08/22 Range/Units 18:26 18:26 18:26 WBC (4.8-10.8) K/ul RBC (4.70-6.10) M/uL Hgb (14.0-18.0) g/dl Hct (42.0-52.0) % MCV (80.0-100.0) fL MCH (25.0-34.0) pg MCHC (32.0-36.0) g/dL RDW Std Deviation (36.4-46.3) fL RDW Coeff of Sonja (11.5-14.5) % Plt Count (130-400) K/uL MPV (9.4-12.4) fL Immature Gran % (Auto) % Neut % (Auto) % Lymph % (Auto) % [place] % (Auto) % Eos % (Auto) % Baso % (Auto) % Neut # (Auto) (1.40-6.50) K/uL Lymph # (Auto) (1.2-3.4) K/uL [place] # (Auto) (0.11-0.59) K/uL Eos # (Auto) (0-0.50) K/uL Baso # (Auto) (0-0.2) K/uL Immature Gran # (Auto) (0.01-0.20) K/uL VBG pH 7.35 L (7.36-7.41) VBG pCO2 47 (38-50) mmHg VBG pO2 31 mmHg VBG HCO3 26 mmol/L VBG O2 Saturation < 60.0 % VBG Base Excess -0.2 mEq/L Sodium 137 Potassium 4.8 Chloride 107 Carbon Dioxide 24 Anion Gap 6 BUN 13 Creatinine 1.47 H Est Cr Clr Drug Dosing 53.0 Est GFR ( Amer) 54.1 Est GFR (Non-Af Amer) 46.7 BUN/Creatinine Ratio 8.8 L Glucose 93 Calcium 8.8 Magnesium 1.9 Total Bilirubin 1.1 H Direct Bilirubin 0.2 AST 22 ALT 15 Alkaline Phosphatase 63 Troponin I High Sens 41.8 H B-Natriuretic Peptide 850 H (0-100) pg/ml Total Protein 6.6 Albumin 3.8 Lipase 13 Digoxin Administered Medications Apixaban (Apixaban 5 Mg Tablet) 5 mg PO BID [facility] Stop: 01/07/23 21:33 Last Admin: 12/08/22 22:25 Dose: Not Given Documented By: CR Atorvastatin Calcium (Atorvastatin 40 Mg Tab) 80 mg PO HS RYLIE Stop: 01/07/23 21:33 Last Admin: 12/08/22 22:25 Dose: Not Given Documented By: CR Digoxin (Digoxin 0.125 Mg Tab) 0.125 mg PO HS [facility] Stop: 01/07/23 21:33 Last Admin: 12/08/22 22:25 Dose: Not Given Documented By: CR Sacubitril/Valsartan (Valsartan/Sacubitril 103/97mg Tab) 1 tab PO AMHS RYLIE Stop: 01/07/23 21:33 Last Admin: 12/08/22 22:26 Dose: Not Given Documented By: CR Ticagrelor (Ticagrelor 90 Mg Tab) 90 mg PO BID RYLIE Stop: 01/07/23 21:33 Last Admin: 12/08/22 22:26 Dose: Not Given Documented By: CR Discontinued Medications Furosemide (Furosemide 40 Mg/4 Ml Vial) 40 mg IV ONE ONE Stop: 12/08/22 18:14 Last Admin: 12/08/22 18:20 Dose: 40 mg Documented By: HS Metoprolol Tartrate (Metoprolol Tartrate 1 Mg/Ml Vial) 5 mg IV NOW STA Stop: 12/08/22 16:11 Last Admin: 12/08/22 16:36 Dose: 5 mg Documented By: TBS Metoprolol Tartrate (Metoprolol Tartrate 1 Mg/Ml Vial) 5 mg IV NOW STA Stop: 12/08/22 17:00 Last Admin: 12/08/22 18:07 Dose: 5 mg Documented By: HS Metoprolol Tartrate (Metoprolol Tartrate 1 Mg/Ml Vial) 5 mg IV NOW STA Stop: 12/08/22 18:14 Last Admin: 12/08/22 19:25 Dose: Not Given Documented By: TOMÁS Imaging Data Radiologist's Impression: Chest X-Ray 12/08/22 16:11 XR chest 1V portable HISTORY: 72 years-old Male shortness of breath COMPARISON: 12/07/2022 TECHNIQUE: AP view of the chest FINDINGS: Cardiac silhouette is enlarged. Coronary vascular congestion with interstitial coarsening. No pneumothorax. Trace pleural effusions with mild bibasilar consolidation. Bones appear grossly intact. Cervical spinal fusion hardware. IMPRESSION: 1. Cardiomegaly with unchanged pulmonary edema. 2. Small pleural effusions with mild bibasilar atelectasis. ACT 112: Negative or not required by law. The above report was generated using voice recognition software. It may contain grammatical, syntax or spelling errors. Electronically signed by: Blaze Beverly M.D. 12/08/2022 5:14 PM Abdomen/Pelvis CT 12/08/22 20:02 Exam(s): CT ABDOMEN + PELVIS Without Contrast EXAM: CT Abdomen and Pelvis Without Intravenous Contrast CLINICAL HISTORY: Reason for exam: nausea, abdominal pain and bloating. TECHNIQUE: Axial computed tomography images of the abdomen and pelvis without intravenous contrast. CTDI is 26.8 mGy and DLP is 1401.67 mGy-cm. Automated exposure control was utilized for the study. A dose lowering technique was utilized adhering to the principles of ALARA. COMPARISON: CT abdomen pelvis 11/22/2017 FINDINGS: ABDOMEN: Liver: Unremarkable. Gallbladder and bile ducts: Unremarkable. No calcified stones. No ductal dilation. Pancreas: Unremarkable. No ductal dilation. Spleen: Unremarkable. No splenomegaly. Adrenals: Unremarkable. No mass. Kidneys and ureters: 1.9 cm hyperdense cyst arising off the lower pole of the left kidney minimal increased from prior MRI of the abdomen performed on 11/29/2017 where it measured 1.6 cm. Growth rate is consistent with a benign lesion. No obstructing stones. No hydronephrosis. Stomach and bowel: Unremarkable. No obstruction. No mucosal thickening. PELVIS: Appendix: No findings to suggest acute appendicitis. Bladder: Unremarkable. No stones. Reproductive: Unremarkable as visualized. ABDOMEN and PELVIS: Intraperitoneal space: Unremarkable. No free air. No significant fluid collection. Bones/joints: No acute fracture. No dislocation. Soft tissues: Unremarkable. Vasculature: Unremarkable. No abdominal aortic aneurysm. Lymph nodes: Unremarkable. No enlarged lymph nodes. IMPRESSION: No acute findings in the abdomen or pelvis. Electronically signed by: Stephen Fletcher M.D. 12/08/22 22:[address] 12/08/22 20:02 Exam(s): CT CHEST Without Contrast EXAM: CT Chest Without Intravenous Contrast CLINICAL HISTORY: Reason for exam: hypoxia, nausea. TECHNIQUE: Axial computed tomography images of the chest without intravenous contrast. CTDI is 26.51 mGy and DLP is 975.25 mGy-cm. Automated exposure control was utilized for the study. A dose lowering technique was utilized adhering to the principles of ALARA. COMPARISON: 11/25/2015 FINDINGS: Lungs: Smooth septal thickening with groundglass opacities within bilateral upper lobes, left greater than right. Pleural space: Small bilateral pleural effusions. No pneumothorax. Heart: Mild cardiomegaly. No significant pericardial effusion. No significant coronary artery calcifications. Bones/joints: Unremarkable. No acute fracture. No dislocation. Soft tissues: Unremarkable. Vasculature: Unremarkable. No thoracic aortic aneurysm. Lymph nodes: Unremarkable. No enlarged lymph nodes. IMPRESSION: 1. Smooth septal thickening with groundglass opacities within bilateral upper lobes, left greater than right. Findings are most concerning for fluid overload. 2. Small bilateral pleural effusions. Electronically signed by: Stephen Fletcher M.D. 12/08/22 22:25 PM Discharge Plan Visit Data Chief Complaint: Abdominal Pain Stated Complaint: ABDOMINAL PAIN, CHF, AFIB ED Provider: Armando Pina Discharge Problem: Atrial fibrillation with rapid ventricular response, Pulmonary edema Patient Disposition: Admitted As Inpatient Discharge Instructions Interventions: ED Discharge Assessment Last Done: 12/08/22 21:18
--- NOTE | 2022-12-08 17:15 | XRay Report ---
XR chest 1V portable HISTORY: 72 years-old Male shortness of breath COMPARISON: 12/07/2022 TECHNIQUE: AP view of the chest FINDINGS: Cardiac silhouette is enlarged. Coronary vascular congestion with interstitial coarsening. No pneumot horax. Trace pleural effusions with mild bibasilar consolidation. Bones appear grossly intact. Cervic al spinal fusion hardware. IMPRESSION: 1. Cardiomegaly with unchanged pulmonary edema. 2. Small pleural effusions with mild bibasilar atelectasis. ACT 112: Negative or not required by law. The above report was generated using voice recognition software. It may contain grammatical, syntax o r spelling errors. Electronically signed by: Blaze Beverly M.D. 12/08/2022 5:14 PM
[2022-12-08 17:38] LABS: Basophils # (auto) 0.07 K/uL (0-0.2); Basophils % (auto) 0.7 %; Eosinophils # (auto) 0.12 K/uL (0-0.50); Eosinophils % (auto) 1.2 %; Hematocrit (blood only) 46.1 % (42.0-52.0); Hemoglobin 16.2 g/dl (14.0-18.0); Immature Granulocytes # (auto) 0.03 K/uL (0.01-0.20); Immature Granulocytes % (auto) 0.3 %; Lymphocytes # (auto) 1.06 K/uL (1.2-3.4); Lymphocytes % (auto) 10.8 %; Mean Corpuscular Hemoglobin 34.2 pg (25.0-34.0); Mean Corpuscular Hgb Conc 35.1 g/dL (32.0-36.0); Mean Corpuscular Volume 97.5 fL (80.0-100.0); Monocytes % (auto) 9.2 %; Neutrophils # (auto) 7.62 K/uL (1.40-6.50); Neutrophils % (auto) 77.8 %; Platelet Count 219 K/uL (130-400); RDW Coefficient of Variation 13.1 % (11.5-14.5); RDW Standard Deviation 46.5 fL (36.4-46.3); Red Blood Count 4.73 M/uL (4.70-6.10)
[2022-12-08] MEDS ORDERED: FUROSEMIDE 40 MG/4 ML VIAL IV ONE (18:13)
[2022-12-08 19:05] LABS: Base Excess VBG -0.2 mEq/L; HCO3 VBG 26 mmol/L; Oxygen Saturation VBG < 60.0 %; PCO2 VBG 47 mmHg (38-50); PO2 VBG 31 mmHg; pH VBG 7.35 (7.36-7.41)
[2022-12-08 19:17] LABS: Albumin Level 3.8 gm/dl (3.4-5.0); BUN Creatinine Ratio 8.8 (10-20); Bilirubin Direct 0.2 mg/dl (0-0.2); Bilirubin,Total 1.1 mg/dl (0.2-1.0); Calcium 8.8 mg/dl (8.6-10.3); Est GFR (African American) 54.1 ml/min; Est GFR (Non-African American) 46.7 ml/min; Magnesium 1.9 mg/dl (1.7-2.4); Potassium 4.8 mmol/L (3.5-5.1); Total Protein 6.6 gm/dl (6.0-8.3)
[2022-12-08 19:22] LABS: Troponin I High Sensitivity 41.8 pg/ml (0-20)
--- NOTE | 2022-12-08 20:22 | History & Physical Report ---
Date of Service December 08, 2022 Assessment & Plan (1) Heart failure with mid-range ejection fraction (HFmEF): (2) BPH (benign prostatic hyperplasia): (3) Ischemic cardiomyopathy: (4) Vertebral artery stenosis: (5) History of CVA (cerebrovascular accident): (6) Kidney disease: (7) Mild cognitive impairment: (8) Atrial fibrillation: (9) Hypothyroidism: (10) Excessive somnolence disorder: (11) Moderate obstructive sleep apnea: (12) CAD (coronary artery disease): (13) Hyperlipidemia: (14) Atrial fibrillation with RVR: (15) Atrial flutter with rapid ventricular response: (16) Acute on chronic systolic (congestive) heart failure: (17) Acute respiratory failure with hypoxia: Plan Atrial fibrillation/flutter with RVR/acute on chronic HFmEF/CAD with history of stent/ischemic cardiomyopathy- The patient will be admitted to telemetry for serial cardiac enzymes, serial EKG's, cardiac rhythm monitoring and a 2-D echocardiogram with Dopplers. Patient symptomatology likely brought on from inability to take medications due to GI disturbance He did receive Lopressor 5 mg IV in the ED and frusemide 40 mg IV with improved rate control, but still in fib flutter Troponin 41.8 and BNP 850 We will continue to follow serial enzymes as noted Digoxin level pending Continue apixaban, aspirin, metoprolol succinate, Entresto, spironolactone and Brilinta If unable to take p.o. medications in the morning, will need to slip box changer to IV Furosemide 40 mg IV every morning Follow serial laboratories Along with CT abdomen pelvis as noted below, we will check a CT of chest without contrast Abdominal distention/bloating- Patient has ultrasound scheduled for 3 days from now Will order CT scan abdomen pelvis to assess for possible gallbladder or other contribution CKD- Creatinine 1.47 on admission, with base range 1.43-1.66 Avoid nephrotoxic agents Follow closely as more aggressive diuresis is made Dementia/mild memory loss- Continue galantamine, venlafaxine and modafinil History of Present Illness Chief Complaint: The patient presents to the emergency department with his son, due to chest discomfort, shortness of breath, abdominal bloating and nausea Primary Care Provider: Thi Montaño MD The patient is a 22-year-old male with a past medical history including HFmEF, BPH, CKD, ischemic cardiomyopathy, history of CVA, vertebral artery stenosis, hypertension, mild cognitive impairment, three-vessel CAD, atrial fibrillation, hypothyroidism, memory loss, moderate CLARENCE and hyperlipidemia. The patient presents to the emergency department with 1 week of nausea and abdominal bloating, during which time he has not been able to take his pills very regularly. He was seen by his outpatient physician, who had a x-ray of the abdomen done which was negative, and had ordered an ultrasound for next available which was 3 days from now. He has had a decreased appetite. He has developed some substernal chest discomfort and shortness of breath, and presents to the ED for assessment today Allergies Allergy/AdvReac Type Severity Reaction Status Date / Time donepezil Allergy Unknown SEE COMMENT Verified 12/04/22 11:21 duloxetine [From Cymbalta] Allergy Unknown SEE COMMENT Verified 12/04/22 11:21 Home Medications Medication Instructions Recorded Confirmed Type coenzyme Q10 100 mg tablet 100 mg PO QAM 12/31/17 12/08/22 History nitroglycerin 0.4 mg sublingual 0.4 mg sublingual UD PRN Chest Pain 12/31/17 12/08/22 History tablet (Nitrostat) levothyroxine 75 mcg tablet 75 mcg PO DAILYBB #90 tabs 01/13/22 12/08/22 Rx atorvastatin 80 mg tablet 80 mg PO HS #90 tabs 04/03/22 12/08/22 Rx metoprolol succinate 200 mg 200 mg PO QAM 90 days #90 tabs 04/07/22 12/08/22 Rx tablet,extended release 24 hr ticagrelor 90 mg tablet (Brilinta) 90 mg PO BID #180 tabs 04/24/22 12/08/22 Rx empagliflozin 10 mg tablet 10 mg PO DAILY #30 tabs 08/25/22 12/08/22 Rx (Jardiance) modafinil 100 mg tablet 100 mg PO QAM #30 tabs 10/15/22 12/08/22 Rx galantamine 24 mg 24 hr 24 mg PO QAM 30 days #30 caps 11/16/22 12/08/22 Rx capsule,extended release furosemide 20 mg tablet (Lasix) 20 mg PO DAILY PRN weight gain, 11/23/22 12/08/22 Rx edema, dyspnea #30 tabs furosemide 20 mg tablet 40 mg PO QAM edema #60 tabs 11/24/22 12/08/22 Rx apixaban 5 mg tablet 5 mg PO BID 12/04/22 12/08/22 History aspirin 81 mg tablet,delayed 81 mg PO QAM 12/08/22 12/08/22 History release cholecalciferol (vitamin D3) 25 25 mcg PO DAILY 12/08/22 12/08/22 History mcg (1,000 unit) capsule (Vitamin D3) digoxin 125 mcg (0.125 mg) tablet 125 mcg PO HS 12/08/22 12/08/22 History sacubitril 97 mg-valsartan 103 mg 1 tab PO AMHS 12/08/22 12/08/22 History tablet (Entresto) spironolactone 25 mg tablet 25 mg PO QAM 12/08/22 12/08/22 History venlafaxine 150 mg 150 mg PO QAM 12/08/22 12/08/22 History capsule,extended release 24 hr vitamin B complex 1 tab PO DAILY 12/08/22 12/08/22 History Past Med/Surg History Medical History (Updated 12/08/22 @ 21:12 by Braydon Crow MD) Abnormal LFTs Acute cerebrovascular accident (CVA) Acute CVA (cerebrovascular accident) Acute kidney injury Acute on chronic systolic (congestive) heart failure Acute respiratory failure with hypoxia Altered mental state Aneurysm BRAIN 2007- [facility] /UNSURE OF SIZE- FOLLOWS DR. BAKER Atrial flutter with rapid ventricular response Bronchitis CHF exacerbation Chronic systolic heart failure Degenerative disc disease Elevated TSH Exposure to COVID-19 virus H/O arterial ischemic stroke residual cognitive impairment. APR 25 2008/ [facility] /PLACED ON BLOOD THINNER Hypertension Hypoxia Lumbar radiculopathy Myocardial Infarction 2015-[facility]- CATH- STENT- FOLLOWS WITH DR. BAKER Nasal septal deviation Osteoarthritis Pulmonary edema Sleep apnea NO CPAP Tinnitus Transaminitis Surgical History Aspiration into airway PER PATIENT, THIS HAPPENED AFTER E.T TUBE CAME OUT IN RECOVERY, THINKS IT WAS 2005, DOES NOT REMEMBER WHAT PROCEDURE BUT THINKS IT WAS AT [facility]- POOR HISTORIAN (HX STROKE) H/O hernia repair H/O neck surgery History of cardioversion [facility] 2017 History of colonoscopy History of deviated nasal septum WITH REPAIR History of left cataract surgery Hx of umbilical hernia repair S/P cardiac catheterization ONE @ [facility]/ ONE @ [facility] - 2016 & 2017- [facility]- FROM [place] Family History Mother Diabetes Depression Unknown No problems noted. Father Myocardial infarction Grandfather (Paternal) Myocardial infarction Brother Myocardial infarction Sister Depression Other No family history of adverse response to anesthesia No family history of bleeding disorder Denies family history of Colon cancer Ovarian cancer Prostate cancer Breast cancer Social History Smoking Status: Never smoker Age Started Using Tobacco: 22; Age Quit Using Tobacco: 37; Cigarettes Per Day: 30 YEARS AGO; Second Hand Exposure: No; Do You Dip or Chew Tobacco: No; Hx Alcohol Use: Yes Alcohol type: hard liquor Alcohol Intake Frequency: 2-3 x/Week Hx Substance Use: No Preferred Language: [place] Communication Ability: Effective Visual Impairment: No Limitations Hearing Ability: Normal Salon/Spa Manager Required: No Beliefs That Will Affect Care: None marital status: Current Living Situation: Alone current occupational status: retired and disabled How many Children do You have: 1 Feels Safe at Home: Yes Childhood Exposure to Second-Hand Smoke: Yes Dental Care, Regularly: Yes Physical Activity Frequency: Daily Seatbelt Use: always Sunscreen Use: No Assistive Devices: None Review of Systems Review of Systems: The patient denies palpitations, cough, lower extremity swelling, sore throat, fevers, chills, sweats, vomiting, diarrhea , constipation, blood in urine or stool, dysuria, urinary frequency or urgency, lightheadedness, dizziness, headache, loss of consciousness, rash, abnormal bruising or bleeding, imbalance, focal weakness, numbness or tingling in arms or legs, generalized arthralgias or myalgias, back or neck pain, or night sweats. The review of systems is otherwise negative other than for that already noted above, and at least 10 systems have been reviewed. Physical Exam Physical Exam: The patient is awake, alert and oriented 3, looks fatigued, normocephalic and atraumatic, lying in bed and in no acute distress. HEENT--PERRL, EOMI, mucous membranes and oropharynx dry. Neck--supple. No JVD. No bruits. Thyroid normal, trachea midline, no adenopathy. Heart--irregular, irregularly irregular. No murmurs, rubs or gallops. Lungs--clear bilaterally, no respiratory distress, no accessory muscle use. Abdomen--normal bowel sounds and soft. Nontender. Mildly distended and tympanitic. Diastases recti midline Extremities--no cyanosis or clubbing. 1+ bilateral pretibial pitting edema Dermatologic--normal skin turgor, normal color, no abnormal lymph nodes, no rash. Neurologic--cranial nerves II through XII grossly intact. Rheumatologic--normal range of motion. Psychiatric--normal affect. Results & Data Results & Data Vital Signs (Past 12 Hours) Vital Signs Temp Pulse Pulse Resp BP BP Pulse Ox 12/08/22 19:19 115 H 110/57 L 12/08/22 19:18 115 H 110/87 12/08/22 19:00 100 H 28 H 112/77 100 12/08/22 18:07 110 H 122/89 12/08/22 17:01 115 H 27 H 105/85 95 12/08/22 16:01 37.1 C 130 H 20 125/77 92 12/08/22 16:01 37.1 C 105 H 20 125/77 93 12/08/22 16:39 116 H 12/08/22 16:36 126 H 125/77 O2 Del Method O2 Flow Rate 12/08/22 19:19 12/08/22 19:18 12/08/22 19:00 Room Air 12/08/22 18:07 12/08/22 17:01 Nasal Cannula 2 12/08/22 16:01 Room Air 12/08/22 16:01 12/08/22 16:39 12/08/22 16:36 Laboratory Results Laboratory Results WBC 9.80 K/ul (4.8-10.8) 12/08/22 16:45 RBC 4.73 M/uL (4.70-6.10) 12/08/22 16:45 Hgb 16.2 g/dl (14.0-18.0) 12/08/22 16:45 Hct 46.1 % (42.0-52.0) 12/08/22 16:45 MCV 97.5 fL (80.0-100.0) 12/08/22 16:45 MCH 34.2 pg (25.0-34.0) H 12/08/22 16:45 MCHC 35.1 g/dL (32.0-36.0) 12/08/22 16:45 RDW Std Deviation 46.5 fL (36.4-46.3) H 12/08/22 16:45 RDW Coeff of Sonja 13.1 % (11.5-14.5) 12/08/22 16:45 Plt Count 219 K/uL (130-400) 12/08/22 16:45 MPV 13.0 fL (9.4-12.4) H 12/08/22 16:45 Immature Gran % (Auto) 0.3 % 12/08/22 16:45 Neut % (Auto) 77.8 % 12/08/22 16:45 Lymph % (Auto) 10.8 % 12/08/22 16:45 [place] % (Auto) 9.2 % 12/08/22 16:45 Eos % (Auto) 1.2 % 12/08/22 16:45 Baso % (Auto) 0.7 % 12/08/22 16:45 Neut # (Auto) 7.62 K/uL (1.40-6.50) H 12/08/22 16:45 Lymph # (Auto) 1.06 K/uL (1.2-3.4) L 12/08/22 16:45 [place] # (Auto) 0.90 K/uL (0.11-0.59) H 12/08/22 16:45 Eos # (Auto) 0.12 K/uL (0-0.50) 12/08/22 16:45 Baso # (Auto) 0.07 K/uL (0-0.2) 12/08/22 16:45 Immature Gran # (Auto) 0.03 K/uL (0.01-0.20) 12/08/22 16:45 VBG pH 7.35 (7.36-7.41) L 12/08/22 18:26 VBG pCO2 47 mmHg (38-50) 12/08/22 18:26 VBG pO2 31 mmHg 12/08/22 18:26 VBG HCO3 26 mmol/L 12/08/22 18:26 VBG O2 Saturation < 60.0 % 12/08/22 18: VBG Base Excess -0.2 mEq/L 12/08/22 18: Sodium 137 mmol/L (136-145) 12/08/22 18: Potassium 4.8 mmol/L (3.5-5.1) 12/08/22 18: Chloride 107 mmol/L (98-107) 12/08/22 18: Carbon Dioxide 24 mmol/L (21-32) 12/08/22 18: Anion Gap 6 (3-11) 12/08/22 18: BUN 13 mg/dl (6-23) 12/08/22 18: Creatinine 1.47 mg/dl (0.6-1.4) H 12/08/22 18: Est Cr Clr Drug Dosing 53.0 ml/min 12/08/22 18: Est GFR ( Amer) 54.1 ml/min 12/08/22 18: Est GFR (Non-Af Amer) 46.7 ml/min 12/08/22 18: BUN/Creatinine Ratio 8.8 (10-20) L 12/08/22 18: Glucose 93 mg/dl (70-99(Fasting)) 12/08/22 18: Calcium 8.8 mg/dl (8.6-10.3) 12/08/22 18: Magnesium 1.9 mg/dl (1.7-2.4) 12/08/22 18: Total Bilirubin 1.1 mg/dl (0.2-1.0) H 12/08/22 18: Direct Bilirubin 0.2 mg/dl (0-0.2) 12/08/22 18: AST 22 U/L (13-39) 12/08/22 18: ALT 15 U/L (7-52) 12/08/22 18: Alkaline Phosphatase 63 U/L (34-104) 12/08/22 18: Troponin I High Sens 41.8 pg/ml (0-20) H 12/08/22 18: B-Natriuretic Peptide 850 pg/ml (0-100) H 12/08/22 18: Total Protein 6.6 gm/dl (6.0-8.3) 12/08/22 18: Albumin 3.8 gm/dl (3.4-5.0) 12/08/22 18:26 Lipase 13 U/L (11-82) 12/08/22 18:26 Digoxin Cancelled 12/08/22 16:45 Impressions Chest X-Ray 12/08/22 16:11 XR chest 1V portable HISTORY: 72 years-old Male shortness of breath COMPARISON: 12/07/2022 TECHNIQUE: AP view of the chest FINDINGS: Cardiac silhouette is enlarged. Coronary vascular congestion with interstitial coarsening. No pneumothorax. Trace pleural effusions with mild bibasilar consolidation. Bones appear grossly intact. Cervical spinal fusion hardware. IMPRESSION: 1. Cardiomegaly with unchanged pulmonary edema. 2. Small pleural effusions with mild bibasilar atelectasis. ACT 112: Negative or not required by law. The above report was generated using voice recognition software. It may contain grammatical, syntax or spelling errors. Electronically signed by: Blaze Beverly M.D. 12/08/2022 5:14 PM Code Status & VTE Plan Code Status Full code VTE Prophylaxis Plan VTE Prophylaxis will be ordered: Yes PG Care Time/CCT Total # of Minutes Spent Total Time Spent with Patient: Total time spent is greater than 50% in coordination of care (as documented) at patient's floor/unit and/or counseling patient: Coding Level of Care Code 09255 INT INP/OBS CARE 3/75MIN Diagnoses Heart failure with mid-range ejection fraction (HFmEF) I50.22 BPH (benign prostatic hyperplasia) N40.0 Ischemic cardiomyopathy I25.5 Vertebral artery stenosis I65.09 History of CVA (cerebrovascular accident) Z86.73 Kidney disease N28.9 Mild cognitive impairment G31.84 Atrial fibrillation I48.91 Hypothyroidism E03.9 Excessive somnolence disorder G47.10 Moderate obstructive sleep apnea G47.33 CAD (coronary artery disease) I25.118 Associated angina: with stable angina Coronary Disease-Associated Artery/Lesion type: [place] artery [place] vs. transplanted heart: [place] heart Hyperlipidemia E78.5 Atrial fibrillation with RVR I48.91 Atrial flutter with rapid ventricular response I48.92 Acute on chronic systolic (congestive) heart failure I50.23 Acute respiratory failure with hypoxia J96.01 (12) CAD (coronary artery disease) Associated angina: with stable angina Coronary Disease-Associated Artery/Lesion type: [place] artery [place] vs. transplanted heart: [place] heart Qualified Code(s): I25.118 - Atherosclerotic heart disease of [place] coronary artery with other forms of angina pectoris
[2022-12-08] MEDS ORDERED: NITROGLYCERIN SL 0.4 MG/TAB TAB SL PRN (21:34)
[2022-12-08] MEDS ORDERED: ONDANSETRON INJ 2 MG/ML 2 ML VIAL IV PRN (21:34)
[2022-12-08] MEDS ORDERED: ACETAMINOPHEN 325 MG TAB PO PRN (21:34)
[2022-12-08] MEDS: TICAGRELOR 90 MG TAB PO SCH ×2 (22:17→22:26)
[2022-12-08] MEDS: APIXABAN 5 MG TABLET PO SCH ×2 (22:18→22:25)
[2022-12-08] MEDS: VALSARTAN/SACUBITRIL 103/97MG TAB PO SCH ×2 (22:18→22:26)
[2022-12-08] MEDS: ATORVASTATIN 40 MG TAB PO SCH ×2 (22:18→22:25)
[2022-12-08] MEDS: DIGOXIN 0.125 MG TAB PO SCH ×2 (22:19→22:25)
--- NOTE | 2022-12-08 22:26 | CT Scan Report ---
Exam(s): CT CHEST Without Contrast EXAM: CT Chest Without Intravenous Contrast CLINICAL HISTORY: Reason for exam: hypoxia, nausea. TECHNIQUE: Axial computed tomography images of the chest without intravenous contrast. CTDI is 26.51 mGy and DLP is 975.25 mGy-cm. Automated exposure control was utilized for the study. A dose lowering technique was utilized adhering to the principles of ALARA. COMPARISON: 11/25/2015 FINDINGS: Lungs: Smooth septal thickening with groundglass opacities within bilateral upper lobes, left greater than right. Pleural space: Small bilateral pleural effusions. No pneumothorax. Heart: Mild cardiomegaly. No significant pericardial effusion. No significant coronary artery calcifications. Bones/joints: Unremarkable. No acute fracture. No dislocation. Soft tissues: Unremarkable. Vasculature: Unremarkable. No thoracic aortic aneurysm. Lymph nodes: Unremarkable. No enlarged lymph nodes. IMPRESSION: 1. Smooth septal thickening with groundglass opacities within bilateral upper lobes, left greater than right. Findings are most concerning for fluid overload. 2. Small bilateral pleural effusions. Electronically signed by: Stephen Fletcher M.D. 12/08/22 22:25 PM
--- NOTE | 2022-12-08 22:30 | CT Scan Report ---
Exam(s): CT ABDOMEN + PELVIS Without Contrast EXAM: CT Abdomen and Pelvis Without Intravenous Contrast CLINICAL HISTORY: Reason for exam: nausea, abdominal pain and bloating. TECHNIQUE: Axial computed tomography images of the abdomen and pelvis without intravenous contrast. CTDI is 26.8 mGy and DLP is 1401.67 mGy-cm. Automated exposure control was utilized for the study. A dose lowering technique was utilized adhering to the principles of ALARA. COMPARISON: CT abdomen pelvis 11/22/2017 FINDINGS: ABDOMEN: Liver: Unremarkable. Gallbladder and bile ducts: Unremarkable. No calcified stones. No ductal dilation. Pancreas: Unremarkable. No ductal dilation. Spleen: Unremarkable. No splenomegaly. Adrenals: Unremarkable. No mass. Kidneys and ureters: 1.9 cm hyperdense cyst arising off the lower pole of the left kidney minimal increased from prior MRI of the abdomen performed on 11/29/2017 where it measured 1.6 cm. Growth rate is consistent with a benign lesion. No obstructing stones. No hydronephrosis. Stomach and bowel: Unremarkable. No obstruction. No mucosal thickening. PELVIS: Appendix: No findings to suggest acute appendicitis. Bladder: Unremarkable. No stones. Reproductive: Unremarkable as visualized. ABDOMEN and PELVIS: Intraperitoneal space: Unremarkable. No free air. No significant fluid collection. Bones/joints: No acute fracture. No dislocation. Soft tissues: Unremarkable. Vasculature: Unremarkable. No abdominal aortic aneurysm. Lymph nodes: Unremarkable. No enlarged lymph nodes. IMPRESSION: No acute findings in the abdomen or pelvis. Electronically signed by: Stephen Fletcher M.D. 12/08/22 22:29 PM
[2022-12-08 23:12] LABS: Appearance Urine Clear (Clear); Bilirubin Urine Negative (Negative); Blood Urine Negative (Negative); Color Urine Yellow; Glucose Urine UA Negative (Negative); Ketones Urine Negative (Negative); Leukocyte Esterase Urine Negative (Negative); Nitrite Urine Negative (Negative); Protein Urine Negative (Negative); Specific Gravity Urine 1.007 (1.000-1.030); Urobilinogen Urine Negative (Negative); pH Urine 5.5 (4.5-7.5)
[2022-12-09] MEDS: LEVOTHYROXINE SODIUM 75 MCG TABLET PO SCH (06:09)
[2022-12-09 06:11] LABS: Basophils # (auto) 0.08 K/uL (0-0.2); Basophils % (auto) 0.9 %; Eosinophils # (auto) 0.24 K/uL (0-0.50); Eosinophils % (auto) 2.7 %; Hemoglobin 15.9 g/dl (14.0-18.0); Immature Granulocytes # (auto) 0.03 K/uL (0.01-0.20); Immature Granulocytes % (auto) 0.3 %; Lymphocytes # (auto) 1.93 K/uL (1.2-3.4); Lymphocytes % (auto) 21.6 %; Mean Corpuscular Hemoglobin 33.5 pg (25.0-34.0); Mean Corpuscular Hgb Conc 33.8 g/dL (32.0-36.0); Mean Corpuscular Volume 98.9 fL (80.0-100.0); Mean Platelet Volume 11.8 fL (9.4-12.4); Monocytes # (auto) 1.03 K/uL (0.11-0.59); Monocytes % (auto) 11.5 %; Neutrophils # (auto) 5.61 K/uL (1.40-6.50); Platelet Count 205 K/uL (130-400); RDW Coefficient of Variation 13.1 % (11.5-14.5); RDW Standard Deviation 47.9 fL (36.4-46.3); Red Blood Count 4.75 M/uL (4.70-6.10); White Blood Count 8.92 K/ul (4.8-10.8)
[2022-12-09 06:26] LABS: Albumin Globulin Ratio 1.4 (0.9-2); BUN Creatinine Ratio 10.2 (10-20); Bilirubin,Total 1.4 mg/dl (0.2-1.0); Calcium 9.4 mg/dl (8.6-10.3); Creatinine Clr Calc Pharmacy 46.9 ml/min; Est GFR (African American) 46.7 ml/min; Est GFR (Non-African American) 40.3 ml/min; Globulin 2.9 gm/dl (2.5-4.0); Magnesium 1.9 mg/dl (1.7-2.4); Potassium 4.2 mmol/L (3.5-5.1); Total Protein 6.9 gm/dl (6.0-8.3)
[2022-12-09] MEDS: VALSARTAN/SACUBITRIL 103/97MG TAB PO SCH ×2 (07:53→21:00)
[2022-12-09] MEDS: SPIRONOLACTONE 25 MG TAB PO SCH (07:54)
[2022-12-09] MEDS: CHOLECALCIFEROL 1,000 UNITS 25 MCG TAB PO SCH (07:54)
[2022-12-09] MEDS: ASPIRIN 81 MG ECTAB PO SCH ×2 (07:54→18:20)
[2022-12-09] MEDS: METOPROLOL SUCC 50MG EXT REL TAB PO SCH (07:54)
[2022-12-09] MEDS: TICAGRELOR 90 MG TAB PO SCH ×2 (07:55→21:00)
[2022-12-09] MEDS: VENLAFAXINE HCL XR 150 MG CAPXR PO SCH ×2 (07:55→18:20)
[2022-12-09] MEDS: EMPAGLIFLOZIN 10 MG TAB PO SCH ×2 (07:56→18:20)
[2022-12-09] MEDS: FUROSEMIDE 40 MG/4 ML VIAL IV SCH (07:56)
[2022-12-09] MEDS: GALANTAMINE HYDROBROMIDE 8 MG CAPER PO SCH ×2 (07:56→18:20)
[2022-12-09] MEDS: APIXABAN 5 MG TABLET PO SCH ×2 (07:56→21:00)
[2022-12-09] MEDS: modafiniL 100 MG TAB PO SCH ×2 (08:23→18:20)
[2022-12-09] MEDS ORDERED: VITAMIN B COMPLEX TAB PO SCH (09:00)
[2022-12-09] MEDS ORDERED: NON-FORMULARY MEDICATION (Coenzyme Q10 100 mg Tablet) PO SCH (09:00)
--- NOTE | 2022-12-09 10:09 | XCELERA ---
[id number] \\[id number]
--- NOTE | 2022-12-09 14:37 | Cardiology Consultation ---
Date of Consultation December 09, 2022 Assessment & Plan (1) Atrial fibrillation with rapid ventricular response: -likely secondary to no medications in 1 week. -rate better controlled on metoprolol succinate and digoxin. -continue Eliquis 5 mg b.i.d.. (2) Chronic systolic CHF (congestive heart failure): -agree with Lasix 40 mg IV daily. -continue Entresto, Jardiance, metoprolol succinate, and spironolactone. -unfortunately, ejection fraction down to 20-25%. -decreased EF may be secondary to acute illness and or rapid atrial fibrillation. (3) Ischemic cardiomyopathy: -as above, LVEF now down to 20-25%. -continue outpatient medical regimen. (4) CAD (coronary artery disease): -as outlined above. History of Present Illness Attending Physician: Riley Velazquez History of Present Illness Mr. Delgado is a 72-year-old male admitted yesterday with GI complaints. He was noted to be in atrial fibrillation with a rapid ventricular response, therefore, this consultation was ordered. Of note, the patient is well known to me from the outpatient setting. The patient was in his usual state of health until approximately 1 week prior to presentation. He noted significant abdominal bloating concurrent nausea. He stop taking all medications at that time. The patient has a longstanding history of paroxysmal atrial fibrillation. This was 1st identified in December 2017. He was maintained on amiodarone daily developed a transaminitis back in March 2020. He is tolerating rate control and long-term anticoagulation without difficulty. He also carries a history of an ischemic cardiomyopathy resultant combined CHF. He does follow with Caridad Robles PA-C in the CHF clinic. He is not compliant with daily weights and sliding-scale diuretics. In terms of his coronary artery disease and. He suffered a lateral myocardial infarction back in May 2015. He had 2 drug-eluting stents placed within the LCx, and a stage procedure with 2 CHULA placed in the LAD. He did well until March 2017 when he suffered an anterior wall myocardial infarction and was found to have occluded stents within the LAD. Overlapping stents were placed in location. Currently, patient is resting comfortably in bed without complaints. Past medical and surgical history 1. Coronary artery disease-see above 2. LCx CHULA times 2-2015 3. LAD CHULA x2, 2015, 2016 4. Ischemic cardiomyopathy -40-45%, October 2021 5. Paroxysmal atrial fibrillation 6. 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 Hypertension 7. Moderate mitral regurgitation 8. Hypothyroidism 9. Memory/cognitive impairment-CVA, 2007, March 2021 10. Obstructive sleep apnea 11. DJD 12. C-spine fusion 13. Cerebral aneurysm repair -2007 14. Umbilical hernia repair 15. Deviated nasal septum surgery 16. Intra-ocular lens implant Social history and lives with his Quit tobacco use 30 years ago Moderate alcohol intake Family history Noncontributory Review of systems A 10 review systems was negative except for that described above. Allergies Allergy/AdvReac Type Severity Reaction Status Date / Time donepezil Allergy Unknown SEE COMMENT Verified 12/04/22 11:21 duloxetine [From Cymbalta] Allergy Unknown SEE COMMENT Verified 12/04/22 11:21 Home Medications Medication Instructions Recorded Confirmed Type coenzyme Q10 100 mg tablet 100 mg PO QAM 12/31/17 12/08/22 History nitroglycerin 0.4 mg sublingual 0.4 mg sublingual UD PRN Chest Pain 12/31/17 12/08/22 History tablet (Nitrostat) levothyroxine 75 mcg tablet 75 mcg PO DAILYBB #90 tabs 01/13/22 12/08/22 Rx atorvastatin 80 mg tablet 80 mg PO HS #90 tabs 04/03/22 12/08/22 Rx metoprolol succinate 200 mg 200 mg PO QAM 90 days #90 tabs 04/07/22 12/08/22 Rx tablet,extended release 24 hr ticagrelor 90 mg tablet (Brilinta) 90 mg PO BID #180 tabs 04/24/22 12/08/22 Rx empagliflozin 10 mg tablet 10 mg PO DAILY #30 tabs 08/25/22 12/08/22 Rx (Jardiance) modafinil 100 mg tablet 100 mg PO QAM #30 tabs 10/15/22 12/08/22 Rx galantamine 24 mg 24 hr 24 mg PO QAM 30 days #30 caps 11/16/22 12/08/22 Rx capsule,extended release furosemide 20 mg tablet (Lasix) 20 mg PO DAILY PRN weight gain, 11/23/22 12/08/22 Rx edema, dyspnea #30 tabs furosemide 20 mg tablet 40 mg PO QAM edema #60 tabs 11/24/22 12/08/22 Rx apixaban 5 mg tablet 5 mg PO BID 12/04/22 12/08/22 History aspirin 81 mg tablet,delayed 81 mg PO QAM 12/08/22 12/08/22 History release cholecalciferol (vitamin D3) 25 25 mcg PO DAILY 12/08/22 12/08/22 History mcg (1,000 unit) capsule (Vitamin D3) digoxin 125 mcg (0.125 mg) tablet 125 mcg PO HS 12/08/22 12/08/22 History sacubitril 97 mg-valsartan 103 mg 1 tab PO AMHS 12/08/22 12/08/22 History tablet (Entresto) spironolactone 25 mg tablet 25 mg PO QAM 12/08/22 12/08/22 History venlafaxine 150 mg 150 mg PO QAM 12/08/22 12/08/22 History capsule,extended release 24 hr vitamin B complex 1 tab PO DAILY 12/08/22 12/08/22 History Patient History Medical History (Updated 12/08/22 @ 22:57 by Armando Pina MD) Abnormal LFTs Acute cerebrovascular accident (CVA) Acute CVA (cerebrovascular accident) Acute kidney injury Acute on chronic systolic (congestive) heart failure Acute respiratory failure with hypoxia Altered mental state Aneurysm BRAIN 2007- [facility] /UNSURE OF SIZE- FOLLOWS DR. BAKER Atrial flutter with rapid ventricular response Bronchitis CHF exacerbation Chronic systolic heart failure Degenerative disc disease Elevated TSH Exposure to COVID-19 virus H/O arterial ischemic stroke residual cognitive impairment. APR 25 2008/ [facility] /PLACED ON BLOOD THINNER Hypertension Hypoxia Lumbar radiculopathy Myocardial Infarction 2015-[facility]- CATH- STENT- FOLLOWS WITH DR. BAKER Nasal septal deviation Osteoarthritis Pulmonary edema Sleep apnea NO CPAP Tinnitus Transaminitis Surgical History Aspiration into airway PER PATIENT, THIS HAPPENED AFTER E.T TUBE CAME OUT IN RECOVERY, THINKS IT WAS 2005, DOES NOT REMEMBER WHAT PROCEDURE BUT THINKS IT WAS AT [facility]- POOR HISTORIAN (HX STROKE) H/O hernia repair H/O neck surgery History of cardioversion [facility] 2017 History of colonoscopy History of deviated nasal septum WITH REPAIR History of left cataract surgery Hx of umbilical hernia repair S/P cardiac catheterization ONE @ [facility]/ ONE @ [facility] - 2016 & 2017- [facility] Family History Mother Diabetes Depression Unknown No problems noted. Father Myocardial infarction Grandfather (Paternal) Myocardial infarction Brother Myocardial infarction Sister Depression Other No family history of adverse response to anesthesia No family history of bleeding disorder Denies family history of Colon cancer Ovarian cancer Prostate cancer Breast cancer Social History Smoking Status: Former smoker Age Started Using Tobacco: 22; Age Quit Using Tobacco: 37; Cigarettes Per Day: 30 YEARS AGO; Second Hand Exposure: No; Do You Dip or Chew Tobacco: No; Hx Alcohol Use: No Hx Substance Use: No Preferred Language: Nepalese Communication Ability: Effective Visual Impairment: No Limitations Hearing Ability: Normal Supreme Court Justice Required: Voice Beliefs That Will Affect Care: None marital status: Current Living Situation: Alone current occupational status: retired and disabled How many Children do You have: 1 Feels Safe at Home: Yes Childhood Exposure to Second-Hand Smoke: Yes Dental Care, Regularly: Yes Physical Activity Frequency: Daily Seatbelt Use: always Sunscreen Use: No Assistive Devices: Cane Physical Exam Physical Exam: In general this is a well-developed well-nourished whi te male in no acut e distress. HEENT exam is negative. Neck is supple wit h full carotid ups trokes. There are no carotid bruits. No JVD. There is no thyromegaly. Ca rdiovascular exam reveals an irregul ar rhythm with dis tant heart sounds. Lungs are clear without rales, rho nchi, or wheezes. Abdomen is soft an d nontender withou t bruits. Extremit ies reveal intact radial artery and posterior tibial p ulses bilaterally. There is no perip heral edema. Results & Data Vital Signs (Past 12 Hours) Vital Signs Temp Pulse Pulse Resp BP Pulse Ox O2 Del Method 12/09/22 10:45 36.4 C L 102 H 20 117/63 94 Nasal Cannula 12/09/22 09:33 127 H 12/09/22 09:00 Nasal Cannula 12/09/22 07:00 36.4 C L 93 H 19 115/82 93 Nasal Cannula 12/09/22 02:44 36.6 C 103 H 18 107/73 93 Nasal Cannula O2 Flow Rate 12/09/22 10:45 1 12/09/22 09:33 12/09/22 09:00 2 12/09/22 07:00 1 12/09/22 02:44 Laboratory Results CBC notes hemoglobin 15.9, crit 47.0, white count 8.9, [place] 2 [address]. Electrolytes note a sodium of 141, potassium 4.2, chloride 106, bicarb 29, BUN 17, creatinine 1.66, and glucose of 94. High sensitivity troponins 41.8. BNP is elevated 850. TSH is normal at 3.45. Diagnostic Findings EKG notes atrial fibrillation with a rapid ventricular response. There is low voltage and an old anteroseptal myocardial infarction pattern. PG Care Time/CCT Total # of Minutes Spent Total Time Spent with Patient: Total time spent is greater than 50% in coordination of care (as documented) at patient's floor/unit and/or counseling patient: Coding Level of Care Code 54362 INT INP/OBS CARE 3/75MIN Diagnoses Atrial fibrillation with rapid ventricular response I48.91 Chronic systolic CHF (congestive heart failure) I50.22 Ischemic cardiomyopathy I25.5 CAD (coronary artery disease) I25.118 Coronary Disease-Associated Artery/Lesion type: [place] artery [place] vs. transplanted heart: [place] heart Associated angina: with stable angina (4) CAD (coronary artery disease) Coronary Disease-Associated Artery/Lesion type: [place] artery [place] vs. transplanted heart: [place] heart Associated angina: with stable angina Qualified Code(s): I25.118 - Atherosclerotic heart disease of [place] coronary artery with other forms of angina pectoris
--- NOTE | 2022-12-09 15:41 | Electrocardiogram Report ---
Test Reason : Blood Pressure : / mmHG Vent. Rate : 115 BPM Atrial Rate : 093 BPM P-R Int : 000 ms QRS Dur : 076 ms QT Int : 332 ms P-R-T Axes : 000 -18 -66 degrees QTc Int : 459 ms Atrial fibrillation with rapid ventricular response Low voltage QRS Septal infarct , age undetermined Abnormal ECG When compared with ECG of 25-APR-2021 16:51, Vent. rate has increased BY 42 BPM Confirmed by Mukul Macario ([id number]) on 12/09/2022 3:41:36 PM Referred By: Thi Guajardo Confirmed By:Mukul Macario
[2022-12-09] MEDS: ATORVASTATIN 40 MG TAB PO SCH (20:58)
[2022-12-09] MEDS: DIGOXIN 0.125 MG TAB PO SCH (21:00)
[2022-12-10] MEDS: LEVOTHYROXINE SODIUM 75 MCG TABLET PO SCH (05:40)
--- NOTE | 2022-12-10 06:12 | Hospitalist Progress Note ---
Date of Service December 09, 2022 Assessment & Plan (1) Heart failure with mid-range ejection fraction (HFmEF): (2) BPH (benign prostatic hyperplasia): (3) Ischemic cardiomyopathy: (4) Vertebral artery stenosis: (5) History of CVA (cerebrovascular accident): (6) Kidney disease: (7) Mild cognitive impairment: (8) Atrial fibrillation: (9) Hypothyroidism: (10) Excessive somnolence disorder: (11) Moderate obstructive sleep apnea: (12) CAD (coronary artery disease): (13) Hyperlipidemia: (14) Atrial fibrillation with RVR: (15) Atrial flutter with rapid ventricular response: (16) Acute on chronic systolic (congestive) heart failure: (17) Acute respiratory failure with hypoxia: Plan Atrial fibrillation/flutter with RVR/acute on chronic HFmEF/CAD with history of stent/ischemic cardiomyopathy- The patient will be admitted to telemetry for serial cardiac enzymes, serial EKG's, cardiac rhythm monitoring and a 2-D echocardiogram with Dopplers. Patient symptomatology likely brought on from inability to take medications due to GI disturbance He did receive Lopressor 5 mg IV in the ED and frusemide 40 mg IV with improved rate control, but still in fib flutter Troponin 41.8 and BNP 850 We will continue to follow serial enzymes as noted Digoxin level pending Continue apixaban, aspirin, metoprolol succinate, Entresto, spironolactone and Brilinta If unable to take p.o. medications in the morning, will need to developer prover upholstering to IV Furosemide 40 mg IV every morning Follow serial laboratories Along with CT abdomen pelvis as noted below, we will check a CT of chest without contrast. On 12/09 It appears he came in RVR due to non compliance complicated by his dementia. This is a difficult situation, as his children call him throughout the day to remind him to take his medications. Goal would be to decrease the amounts of medications he takes however, due to importance of all of his medications, we could at this time, stop his vitamins and aspirin. Also had discussion with Cardiology, ok to stop aspirin. Daughter unsure if dividing up a portion of his morning medications to Morning and noon would be helpful as this would increase the times patient takes medication from BID to TID. He already has difficultly taking his medications BID. Patient will need someone in charge of his medications, perhaps home health, SNF. WIll recommend discussing case with case management. Abdominal distention/bloating- Patient has ultrasound scheduled for 3 days from now Will order CT scan abdomen pelvis to assess for possible gallbladder or other contribution: this was negative CKD- Creatinine 1.47 on admission, with base range 1.43-1.66 Avoid nephrotoxic agents Follow closely as more aggressive diuresis is made Dementia/mild memory loss- Continue galantamine, venlafaxine and modafinil Admission and Anticipated Discharge Date Admission Date: December 08, 2022 Subjective 72 yo male reports he does not like taking his medications.Had multiple visits with patient. Patient reports he is nauseous when he takes them. Patient however tolerated a portion of his medications today. Review of Systems Review of Systems: All systems reviewed & are unremarkable except as noted in HPI & below Physical Exam Physical Exam: The patient is awake, alert and oriented 3, looks fatigued, normocephalic and atraumatic, lying in bed and in no acute distress. HEENT--PERRL, EOMI, mucous membranes and oropharynx dry. Neck--supple. No JVD. No bruits. Thyroid normal, trachea midline, no adenopathy. Heart--irregular, irregularly irregular. No murmurs, rubs or gallops. Lungs--clear bilaterally, no respiratory distress, no accessory muscle use. Abdomen--normal bowel sounds and soft. Nontender. Mildly distended and tympanitic. Diastases recti midline Extremities--no cyanosis or clubbing. 1+ bilateral pretibial pitting edema Dermatologic--normal skin turgor, normal color, no abnormal lymph nodes, no rash. Neurologic--cranial nerves II through XII grossly intact. Rheumatologic--normal range of motion. Psychiatric--normal affect. Results & Data Results & Data Vital Signs (Past 12 Hours) Vital Signs Temp Pulse Pulse Resp BP BP Pulse Ox 12/10/22 03:11 36.3 C L 80 20 108/77 93 12/10/22 00:43 95 H 12/09/22 23:33 36.6 C 66 20 104/68 92 12/09/22 21:00 91 H 12/09/22 20:59 36.6 C 91 H 20 124/75 94 O2 Del Method 12/10/22 03:11 Room Air 12/10/22 00:43 12/09/22 23:33 Room Air 12/09/22 21:00 12/09/22 20:59 Room Air PG Care Time/CCT Total # of Minutes Spent Total Time Spent with Patient: Total time spent is greater than 50% in coordination of care (as documented) at patient's floor/unit and/or counseling patient: Coding Level of Care Code 08676 SUB INP/OBS CARE 3/50MIN Diagnoses Heart failure with mid-range ejection fraction (HFmEF) I50.22 BPH (benign prostatic hyperplasia) N40.0 Ischemic cardiomyopathy I25.5 Vertebral artery stenosis I65.09 History of CVA (cerebrovascular accident) Z86.73 Kidney disease N28.9 Mild cognitive impairment G31.84 Atrial fibrillation I48.91 Hypothyroidism E03.9 Excessive somnolence disorder G47.10 Moderate obstructive sleep apnea G47.33 CAD (coronary artery disease) I25.118 Associated angina: with stable angina Coronary Disease-Associated Artery/Lesion type: [place] artery [place] vs. transplanted heart: [place] heart Hyperlipidemia E78.5 Atrial fibrillation with RVR I48.91 Atrial flutter with rapid ventricular response I48.92 Acute on chronic systolic (congestive) heart failure I50.23 Acute respiratory failure with hypoxia J96.01 (12) CAD (coronary artery disease) Associated angina: with stable angina Coronary Disease-Associated Artery/Lesion type: [place] artery [place] vs. transplanted heart: [place] heart Qualified Code(s): I25.118 - Atherosclerotic heart disease of [place] coronary artery with other forms of angina pectoris
[2022-12-10 06:20] LABS: Basophils # (auto) 0.09 K/uL (0-0.2); Basophils % (auto) 0.9 %; Eosinophils # (auto) 0.33 K/uL (0-0.50); Eosinophils % (auto) 3.4 %; Hematocrit (blood only) 45.4 % (42.0-52.0); Hemoglobin 15.8 g/dl (14.0-18.0); Immature Granulocytes # (auto) 0.04 K/uL (0.01-0.20); Immature Granulocytes % (auto) 0.4 %; Lymphocytes # (auto) 2.14 K/uL (1.2-3.4); Lymphocytes % (auto) 22.2 %; Mean Corpuscular Hemoglobin 33.4 pg (25.0-34.0); Mean Corpuscular Hgb Conc 34.8 g/dL (32.0-36.0); Monocytes # (auto) 1.03 K/uL (0.11-0.59); Monocytes % (auto) 10.7 %; Neutrophils # (auto) 6.03 K/uL (1.40-6.50); Neutrophils % (auto) 62.4 %; Platelet Count 211 K/uL (130-400); RDW Coefficient of Variation 12.8 % (11.5-14.5); RDW Standard Deviation 45.4 fL (36.4-46.3); Red Blood Count 4.73 M/uL (4.70-6.10); White Blood Count 9.66 K/ul (4.8-10.8)
[2022-12-10 07:38] LABS: Albumin Globulin Ratio 1.2 (0.9-2); Albumin Level 3.6 gm/dl (3.4-5.0); BUN Creatinine Ratio 15.1 (10-20); Bilirubin,Total 2.2 mg/dl (0.2-1.0); Calcium 9.2 mg/dl (8.6-10.3); Creatinine Clr Calc Pharmacy 46.1 ml/min; Est GFR (African American) 49.2 ml/min; Est GFR (Non-African American) 42.4 ml/min; Globulin 2.9 gm/dl (2.5-4.0); Magnesium 1.8 mg/dl (1.7-2.4); Potassium 3.7 mmol/L (3.5-5.1); Total Protein 6.5 gm/dl (6.0-8.3)
[2022-12-10] MEDS: VENLAFAXINE HCL XR 150 MG CAPXR PO SCH (08:28)
[2022-12-10] MEDS: VALSARTAN/SACUBITRIL 103/97MG TAB PO SCH (08:28)
[2022-12-10] MEDS: SPIRONOLACTONE 25 MG TAB PO SCH (08:29)
[2022-12-10] MEDS: APIXABAN 5 MG TABLET PO SCH (08:30)
[2022-12-10] MEDS: GALANTAMINE HYDROBROMIDE 8 MG CAPER PO SCH (08:30)
[2022-12-10] MEDS: METOPROLOL SUCC 50MG EXT REL TAB PO SCH (08:31)
[2022-12-10] MEDS: CHOLECALCIFEROL 1,000 UNITS 25 MCG TAB PO SCH (08:31)
[2022-12-10] MEDS: TICAGRELOR 90 MG TAB PO SCH (08:31)
[2022-12-10] MEDS: EMPAGLIFLOZIN 10 MG TAB PO SCH (08:32)
[2022-12-10] MEDS: FUROSEMIDE 40 MG/4 ML VIAL IV SCH (08:32)
[2022-12-10] MEDS: modafiniL 100 MG TAB PO SCH (08:35)
[2022-12-10] MEDS ORDERED: METOPROLOL TARTRATE 1 MG/ML VIAL IV STA (13:08)
[2022-12-10] MEDS ORDERED: METOPROLOL SUCC 50MG EXT REL TAB PO STA (13:08)
--- NOTE | 2022-12-10 13:26 | Discharge Summary ---
Discharge Summary Date of Service December 10, 2022 Notes For Next Care Provider Medication Changes From Visit None Admission HPI Per Admitting Provider The patient is a 22-year-old male with a past medical history including HFmEF, BPH, CKD, ischemic cardiomyopathy, history of CVA, vertebral artery stenosis, hypertension, mild cognitive impairment, three-vessel CAD, atrial fibrillation, hypothyroidism, memory loss, moderate CLARENCE and hyperlipidemia. The patient presents to the emergency department with 1 week of nausea and abdominal bloating, during which time he has not been able to take his pills very regularly. He was seen by his outpatient physician, who had a x-ray of the abdomen done which was negative, and had ordered an ultrasound for next available which was 3 days from now. He has had a decreased appetite. 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 -continue highest priority meds to include: Toprol XL, lasix 40mg daily (changed to 40mg tabs to reduce pill burden of 2 x 20mg tab), spironolactone, Entresto, Eliquis, Brilinta, and Jardiance -f/u with CHF clinic Appreciate Cardiology consult (2) Atrial fibrillation: Rapid afib here from noncompliance with metoprolol an digoxin restarted here and stressed importance of takin gmeds digoxin level here undetectable continue ELiquis, metoprolol, digoxin (3) Ischemic cardiomyopathy: as above (4) History of CVA (cerebrovascular accident): continue ELiquis can dc ASA continue atorvastatin (5) Kidney disease: CKD stage 3, 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 -Avoid nephrotoxins -renally dose meds when appropriate -follow BMP as outpt (6) Mild cognitive impairment: follows with Neurology on galantamine but pt and son will d/w Neuro about stopping this in effort to reduce pill burden he already has not been taking venlafaxine, so advised to stop it completely and watch for changes in mood-d/w son as well trying to reduce pill burden (7) Hypothyroidism: TSH here normal at 3.5 continue home levothroxine dose (8) Excessive somnolence disorder: advised can stop modafinil or take as needed (9) Moderate obstructive sleep apnea: (10) CAD (coronary artery disease): h/o CHULA -continue Brilinta but can dc ASA -continue statin -continue ELiquis (11) Hyperlipidemia: continue statin (12) Acute respiratory failure with hypoxia: resolved with diuresis Plan Abdominal distention/bloating- CT scan abdomen pelvis to assess for possible gallbladder or other contribution: this was negative DIspo-dc to home Discharge Exam Constitutional WD/WN, vitals as above Respiratory normal respiratory effort, lungs clear to auscultation Cardiovascular Rate/Rhythm: + tachycardic and + irregularly irregular Extremities: + edema (1+ pitting edema legs bilat) Gastrointestinal (Abdomen) normal bowel sounds, soft, nontender, no hepatosplenomegaly Psychiatric Orientation: alert, oriented to person, oriented to place, oriented to time and cooperative Updated Medication List Medication Instructions Recorded Confirmed Type coenzyme Q10 100 mg tablet 100 mg PO QAM 12/31/17 12/08/22 History nitroglycerin 0.4 mg sublingual 0.4 mg sublingual UD PRN Chest Pain 12/31/17 12/08/22 History tablet (Nitrostat) levothyroxine 75 mcg tablet 75 mcg PO DAILYBB #90 tabs 01/13/22 12/08/22 Rx atorvastatin 80 mg tablet 80 mg PO HS #90 tabs 04/03/22 12/08/22 Rx metoprolol succinate 200 mg 200 mg PO QAM 90 days #90 tabs 04/07/22 12/08/22 Rx tablet,extended release 24 hr ticagrelor 90 mg tablet (Brilinta) 90 mg PO BID #180 tabs 04/24/22 12/08/22 Rx empagliflozin 10 mg tablet 10 mg PO DAILY #30 tabs 08/25/22 12/08/22 Rx (Jardiance) modafinil 100 mg tablet 100 mg PO QAM #30 tabs 10/15/22 12/08/22 Rx galantamine 24 mg 24 hr 24 mg PO QAM 30 days #30 caps 11/16/22 12/08/22 Rx capsule,extended release furosemide 20 mg tablet (Lasix) 20 mg PO DAILY PRN weight gain, 11/23/22 12/08/22 Rx edema, dyspnea #30 tabs apixaban 5 mg tablet 5 mg PO BID 12/04/22 12/08/22 History cholecalciferol (vitamin D3) 25 25 mcg PO DAILY 12/08/22 12/08/22 History mcg (1,000 unit) capsule (Vitamin D3) digoxin 125 mcg (0.125 mg) tablet 125 mcg PO HS 12/08/22 12/08/22 History sacubitril 97 mg-valsartan 103 mg 1 tab PO AMHS 12/08/22 12/08/22 History tablet (Entresto) spironolactone 25 mg tablet 25 mg PO QAM 12/08/22 12/08/22 History venlafaxine 150 mg 150 mg PO QAM 12/08/22 12/08/22 History capsule,extended release 24 hr vitamin B complex 1 tab PO DAILY 12/08/22 12/08/22 History furosemide 40 mg tablet 40 mg PO DAILY #30 tabs 12/10/22 Rx Hospital Stay Data Consultations 12/08/22 19:32 ED Decision to Admit Stat 12/08/22 21:34 Consult Cardiology Routine Diagnostic Imagining Performed 12/08/22 20:02 CT Abd and Pelvis [CT abd pelvis wo con] Stat CT chest without contrast [CT chest diagnostic wo con] Stat ECHO Pending Results Patient Have Any Pending Studies at Discharge: No Discharge Instructions Given to Patient (Per Discharging Provider) You were admitted with worsening shortness of breath and not feeling well due to rapid atrial fibrillation (fast heart rate) and being overloaded with fluid from worsening congestive heart failure. This is all most likely from not taking your medications as prescribed. In an effort to reduce the amount of pills you take, here is a list of the most important medications you should take the metoprolol, Eliquis (apixiban), digoxin, furosemide, spironolactone, Entresto, and ticagrelor. Your aspirin has been STOPPED. The levothyroxine is also important but if you miss a day or two here and there, it won't be a huge problem. If you miss the atorvastatin, empagliflozin,coenzyme Q10, Vitamin D, galantamine, and Vitamin B complex for a few days, it is not as vital to take those. If you skip the venlafaxine, you'll probably feel terrible and dizzy. If you skip the modafinil, you'll feel tired. I called in a new prescription for the lasix in the 40mg tablets so you don't have to take 2 of the 20mg tablets each day. Call your Primary Care doctor if any of the following symptoms or problems start or get worse: * Shortness of breath or difficulty breathing * Wake up at night short of breath * Chest pain * Cough * Swelling of your hands, feet, or legs * More fatigued or tired with your normal activity * Palpitations - sudden fast heart beats WEIGHT * Weigh yourself every morning after using the bathroom. * Use the same scale. * Wear the same amount of clothing. * Write your weight down on a chart. * Call your Primary Care doctor if you gain more than 2-3 pounds in 1-2 days. MEDICATIONS * Use this discharge instruction sheet for medication instructions. * Take your medications at the time your doctor ordered. * Do not skip a dose of your medicines. * If you miss a dose of medicine, take it as soon as possible, but DO NOT DOUBLE A DOSE. * Read your medicine information when you get home. * Know all of the side effects of your medicine. If in doubt, ask your pharmacist * Call your Primary Care doctor's office if you have any side effects. * Be sure all of your doctors know what medicine and herbs you take (including cold, flu, and herbal medicine). Take the following with you to your follow-up doctor appointments: * Weight Chart * Medication List * List of questions Do not drink excessive alcohol, beer or wine. Total Time Total Time Spent Total Time Spent (In Minutes): 45 min Coding Level of Care Code 57882 INP/OBS DISCH >30 MIN Diagnoses Heart failure with mid-range ejection fraction (HFmEF) I50.22 Atrial fibrillation I48.91 Ischemic cardiomyopathy I25.5 History of CVA (cerebrovascular accident) Z86.73 Kidney disease N28.9 Mild cognitive impairment G31.84 Hypothyroidism E03.9 Excessive somnolence disorder G47.10 Moderate obstructive sleep apnea G47.33 CAD (coronary artery disease) I25.118 Associated angina: with stable angina Coronary Disease-Associated Artery/Lesion type: [place] artery [place] vs. transplanted heart: [place] heart Hyperlipidemia E78.5 Acute respiratory failure with hypoxia J96.01
--- NOTE | 2022-12-10 15:38 | Electrocardiogram Report ---
Test Reason : Blood Pressure : / mmHG Vent. Rate : 135 BPM Atrial Rate : 000 BPM P-R Int : 000 ms QRS Dur : 074 ms QT Int : 294 ms P-R-T Axes : 000 -23 060 degrees QTc Int : 441 ms Atrial fibrillation with rapid ventricular response Anterior infarct , age undetermined Abnormal ECG When compared with ECG of 25-APR-2021 16:51, Vent. rate has increased BY 62 BPM Confirmed by Mukul Macario ([id number]) on 12/10/2022 3:37:43 PM Referred By: Thi Guajardo Confirmed By:Mukul Macario
--- NOTE | 2022-12-10 15:48 | Electrocardiogram Report ---
Test Reason : Blood Pressure : / mmHG Vent. Rate : 079 BPM Atrial Rate : 079 BPM P-R Int : 136 ms QRS Dur : 074 ms QT Int : 368 ms P-R-T Axes : 000 -06 268 degrees QTc Int : 421 ms Poor data quality, interpretation may be adversely affected Atrial fibrillation with premature ventricular or aberrantly conducted complexes Low voltage QRS Nonspecific T wave abnormality Abnormal ECG When compared with ECG of 09-DEC-2022 04:54, Sinus rhythm has replaced Atrial fibrillation Confirmed by Mukul Macario ([id number]) on 12/10/2022 3:47:58 PM Referred By: Thi Guajardo Confirmed By:Mukul Macario
== END 2022-12-10 17:13 | disposition home or self-care (01) | DRG 291 ==
LOC: ED 16:06 → 4W 20:20 → SUATTDRO 20:20 → 4W 21:18

== ENCOUNTER 2023-04-21 14:53 | Inpatient (IN) ==
[2023-04-21 16:06] LABS: Basophils # (auto) 0.06 K/uL (0.00-0.20); Basophils % (auto) 0.4 %; Eosinophils # (auto) 0.02 K/uL (0.00-0.50); Eosinophils % (auto) 0.1 %; Hematocrit (blood only) 42.8 % (42.0-52.0); Hemoglobin 14.3 g/dl (14.0-18.0); Immature Granulocytes # (auto) 0.09 K/uL (0.01-0.20); Immature Granulocytes % (auto) 0.7 %; Lymphocytes # (auto) 1.13 K/uL (1.20-3.40); Lymphocytes % (auto) 8.4 %; Mean Corpuscular Hemoglobin 33.6 pg (25.0-34.0); Mean Corpuscular Hgb Conc 33.4 g/dL (32.0-36.0); Mean Corpuscular Volume 100.5 fL (80.0-100.0); Mean Platelet Volume 10.7 fL (9.4-12.4); Monocytes # (auto) 1.61 K/uL (0.11-0.59); Monocytes % (auto) 11.9 %; Neutrophils # (auto) 10.59 K/uL (1.40-6.50); Neutrophils % (auto) 78.5 %; Platelet Count 274 K/uL (130-400); RDW Coefficient of Variation 14.1 % (11.5-14.5); RDW Standard Deviation 51.5 fL (36.4-46.3); Red Blood Count 4.26 M/uL (4.70-6.10)
[2023-04-21 16:25] LABS: Albumin Globulin Ratio 1.2 (0.9-2); Albumin Level 4.1 gm/dl (3.4-5.0); BUN Creatinine Ratio 16.5 (10-20); Bilirubin,Total 2.7 mg/dl (0.2-1.0); Calcium 9.6 mg/dl (8.6-10.3); Creatinine Clr Calc Pharmacy 39.4 ml/min; Est GFR (African American) 38.7 ml/min; Est GFR (Non-African American) 33.4 ml/min; Globulin 3.4 gm/dl (2.5-4.0); Potassium 3.8 mmol/L (3.5-5.1); Total Protein 7.5 gm/dl (6.0-8.3)
[2023-04-21 16:37] LABS: Troponin I High Sensitivity 81.5 pg/ml (0-20)
[2023-04-21 16:41] LABS: Thyroid Stimulating Hormone 2.012 uIu/ml (0.300-4.500)
--- NOTE | 2023-04-21 16:42 | Emergency Department Note ---
Impression & Plan Generalized weakness, Acute pain of left lower extremity, Bilateral lower extremity edema, Elevated troponin ED Provider Note NAME: CHEYANNE BECERRA AGE: 72 SEX: Male INFORMANT: Patient and daughter ED PROVIDER(S): David Dhaliwal MD CHIEF COMPLAINT: Generalized weakness, left leg pain PLAN: Disposition: Admitted Outpatient prescription management: none Referral: None MEDICAL DECISION MAKING: Patient presented because of worsening generalized weakness. He has not been able to get around for the last few days. A workup was initiated. He has missed multiple doses of his medications recently. He did have significant lower extremity edema on examination. Legs are symmetrical but he was complaining of more pain in the left leg. Ultrasound imaging ordered. No evidence of DVT. Patient was found to have an elevated troponin and BNP concerning for CHF. Patient also has a significant elevation of his total CK concerning from his rhabdomyolysis. This may be part of the etiology of his left leg pain. Patient had a Zhang catheter placed. IV Lasix and IV fluids were administered. He does need to be hydrated however he does have volume overload. This will have to be carefully managed. Further treatment and evaluation is necessary in the hospital. Consultation was made with Dr. Braydon Crow of the [facility] service. Patient was evaluated in the ER for further management. Care/management discussed with: case management manager Level of care consideration(s): After review of the information above and other included data, I feel the patient requires further management in the hospital. Triage Nursing notes: reviewed and agree them. Vital Signs: reviewed and remarkable for tachycardia Additional History obtained from: Patient's daughter. She notes he has had difficulty taking his scheduled medication doses. Chronic Medical/Social Conditions affecting care: CHF Prior/ Outside/ External records reviewed: none Differential Diagnosis: CHF, infection, dehydration, metabolic abnormality, hypo/hyperglycemia, electrolyte disturbance, anemia, hypoxia, cardiac sources, intracerebral event, toxicologic, neurologic, DVT, as well as other pathologies. Diagnostics, independently interpreted by me: ECG: Twelve-lead ECG reveals atrial fibrillation with rapid ventricular response at [address] elevation or depression. Cardiac Monitoring: Cardiac monitoring ordered by me: The patient was placed on continuous cardiac monitoring and observed. It revealed atrial fibrillation at 119 bpm Medical decision rules: none Imaging studies: Ultrasound imaging of the left lower extremity negative for DVT. Chest x-ray reveals cardiomegaly. HPI: 72 year old Male arrives for evaluation of generalized weakness and left leg pain. The patient has been very weak and unable to get around over the last 2 days per the patient's daughter. He has missed multiple doses of his scheduled medications. She notes his legs are more swollen than usual. The patient has complained of more left leg pain but denies any trauma. The patient rated his pain at 8/10. Pt denies LOC, headache, fevers, chills, chest pain, breathing difficulties, nausea, vomiting, abdominal pain, back pain, melena, hematochezia, urinary symptoms, numbness, lymphadenopathy, rash, or other complaints. PAST MEDICAL HISTORY: See Below, CHF, A-fib PAST SURGICAL HISTORY: See Below, SOCIAL HISTORY: See Below, lives alone HOME MEDICATIONS: See Below ALLERGIES: See Below VITALS: See Below PHYSICAL EXAMINATION: GENERAL: Awake, tired-appearing, in no distress HENT: Normocephalic, atraumatic. Oropharynx unremarkable. EYES: Normal conjunctiva. Sclera non-icteric. NECK: Inspection normal. Non-tender. Supple. No nuchal rigidity. FROM. No masses. RESPIRATORY: Clear to auscultation. No wheezes. No rales. Normal respiratory effort. CARDIAC: Tachycardic rate. Irregular rhythm. No murmurs. No rubs. Extremities warm and well perfused. Pulses equal. No JVD. GI: Soft, non-distended. No tenderness to palpation. No rebound or guarding. No masses. RECTAL: Deferred. MUSCULOSKELETAL: Atraumatic. Chest examination reveals no tenderness. The back is symmetrical on inspection without obvious abnormality. There is no CVA tenderness to palpation. No joint edema. LOWER EXTREMITIES: Calves are equal size bilaterally and left side is tender. 3+ edema. No traumatic findings on physical examination. No discoloration. NEURO: Normal sensorium. No sensory or motor deficits noted. SKIN: No rash or jaundice noted. 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 BAKER Osteoarthritis Degenerative disc disease Tinnitus Sleep apnea NO CPAP Aneurysm BRAIN 2007- [facility] /UNSURE OF SIZE- FOLLOWS DR. BAKER Lumbar radiculopathy Acute respiratory failure with hypoxia Elevated TSH Chronic systolic heart failure H/O arterial ischemic stroke residual cognitive impairment. APR 25 2008/ [facility] /PLACED ON BLOOD THINNER Acute on chronic systolic (congestive) heart failure Atrial flutter with rapid ventricular response Nasal septal deviation Hypertension Surgical History H/O neck surgery History of left cataract surgery Aspiration into airway PER PATIENT, THIS HAPPENED AFTER E.T TUBE CAME OUT IN RECOVERY, THINKS IT WAS 2005, DOES NOT REMEMBER WHAT PROCEDURE BUT THINKS IT WAS AT [facility]- POOR HISTORIAN (HX STROKE) History of colonoscopy Hx of umbilical hernia repair History of deviated nasal septum WITH REPAIR History of cardioversion [facility] 2017 S/P cardiac catheterization ONE @ [facility]/ ONE @ [facility] - 2016 & 2017- [facility]- FROM [place] H/O hernia repair Family History Mother Diabetes Depression Unknown No problems noted. Father Myocardial infarction Grandfather (Paternal) Myocardial infarction Brother Myocardial infarction Sister Depression Other No family history of adverse response to anesthesia No family history of bleeding disorder Denies family history of Colon cancer Ovarian cancer Prostate cancer Breast cancer Social History Smoking Status: Never smoker Age Started Using Tobacco: 22; Age Quit Using Tobacco: 37; Cigarettes Per Day: 30 YEARS AGO; Second Hand Exposure: No; Do You Dip or Chew Tobacco: No; Hx Alcohol Use: No Hx Substance Use: No Preferred Language: Malay Communication Ability: Effective Visual Impairment: No Limitations Hearing Ability: Normal Metal Bumper Required: Voice Beliefs That Will Affect Care: None marital status: Current Living Situation: Alone current occupational status: retired and disabled How many Children do You have: 1 Feels Safe at Home: Yes Childhood Exposure to Second-Hand Smoke: Yes Dental Care, Regularly: Yes Physical Activity Frequency: Daily Seatbelt Use: always Sunscreen Use: No Assistive Devices: Cane Allergies Allergies Allergy/AdvReac Type Severity Reaction Status Date / Time donepezil Allergy Unknown SEE COMMENT Verified 04/21/23 18:28 duloxetine [From Cymbalta] Allergy Unknown SEE COMMENT Verified 04/21/23 18:28 Home Meds Home Medications Medication Instructions Recorded Confirmed coenzyme Q10 100 mg tablet 100 mg PO QAM 12/31/17 04/21/23 nitroglycerin 0.4 mg sublingual 0.4 mg sublingual UD PRN Chest Pain 12/31/17 04/21/23 tablet (Nitrostat) digoxin 125 mcg (0.125 mg) tablet 125 mcg PO HS 12/08/22 04/21/23 spironolactone 25 mg tablet 25 mg PO QAM 12/08/22 04/21/23 bumetanide 2 mg tablet 3 mg PO DAILY 04/05/23 04/21/23 Previous Rx's Medication Instructions Recorded atorvastatin 80 mg tablet 80 mg PO HS #90 tabs 04/03/22 empagliflozin 10 mg tablet 10 mg PO DAILY #30 tabs 08/25/22 (Jardiance) modafinil 100 mg tablet 100 mg PO QAM #30 tabs 10/15/22 levothyroxine 75 mcg tablet 75 mcg PO DAILYBB #90 tabs 12/11/22 sacubitril 97 mg-valsartan 103 mg 1 tab PO BID #60 tabs 01/14/23 tablet (Entresto) mupirocin 2 % topical ointment 1 applic topical TID #22 grams 02/22/23 apixaban 5 mg tablet 5 mg PO BID #180 tabs 03/17/23 metoprolol succinate 200 mg 200 mg PO QAM 90 days #90 tabs 03/17/23 tablet,extended release 24 hr ticagrelor 90 mg tablet (Brilinta) 90 mg PO BID #180 tabs 03/17/23 Results & Data (ED) Vital Signs Vital Signs - 24 hr 04/21/23 15:41 04/21/23 15:41 04/21/23 15:52 Temperature 36.9 C 36.9 C Temperature Source Oral Oral Pulse Rate 123 H 119 H Pulse Rate [Apical] 123 H Pulse Rate from SpO2 Sensor Respiratory Rate 20 20 20 Respiratory Effort / Characteristics Non-Labored Spontaneous Non-Labored Spontaneous Respiratory Depth Normal Normal Respiratory Pattern Regular Regular Blood Pressure 122/86 Blood Pressure [Right Arm] 122/86 Blood Pressure Mean 98 Blood Pressure Mean [Right Arm] 98 Blood Pressure Position Lying Blood Pressure Position [Right Arm] Lying Pulse Oximetry 96 96 96 Oxygen Delivery Method Room Air Room Air Room Air Sepsis Recent Fever Within 48 Hours No Sepsis New/Unexplained Change in Mental Status No Sepsis Action Taken by Nursing No Action Required 04/21/23 17:55 04/21/23 19:00 04/21/23 19:13 Temperature Temperature Source Pulse Rate 100 H Pulse Rate [Apical] 105 H Pulse Rate from SpO2 Sensor 83 Respiratory Rate 18 20 Respiratory Effort / Characteristics Non-Labored Spontaneous Respiratory Depth Normal Respiratory Pattern Regular Blood Pressure Blood Pressure [Right Arm] 101/68 101/56 L Blood Pressure Mean Blood Pressure Mean [Right Arm] 79 71 Blood Pressure Position Blood Pressure Position [Right Arm] Lying Pulse Oximetry 97 94 Oxygen Delivery Method Room Air Sepsis Recent Fever Within 48 Hours Sepsis New/Unexplained Change in Mental Status Sepsis Action Taken by Nursing Laboratory Data 04/21/23 15:25 04/21/23 15:25 Lab Results 04/21/23 04/21/23 04/21/23 Range/Units 15:25 16:32 17:52 WBC 13.50 H (4.8-10.8) K/ul RBC 4.26 L (4.70-6.10) M/uL Hgb 14.3 (14.0-18.0) g/dl Hct 42.8 (42.0-52.0) % MCV 100.5 H (80.0-100.0) fL MCH 33.6 (25.0-34.0) pg MCHC 33.4 (32.0-36.0) g/dL RDW Std Deviation 51.5 H (36.4-46.3) fL RDW Coeff of Sojna 14.1 (11.5-14.5) % Plt Count 274 (130-400) K/uL MPV 10.7 (9.4-12.4) fL Immature Gran % (Auto) 0.7 % Neut % (Auto) 78.5 % Lymph % (Auto) 8.4 % [place] % (Auto) 11.9 % Eos % (Auto) 0.1 % Baso % (Auto) 0.4 % Neut # (Auto) 10.59 H (1.40-6.50) K/uL Lymph # (Auto) 1.13 L (1.20-3.40) K/uL [place] # (Auto) 1.61 H (0.11-0.59) K/uL Eos # (Auto) 0.02 (0.00-0.50) K/uL Baso # (Auto) 0.06 (0.00-0.20) K/uL Immature Gran # (Auto) 0.09 (0.01-0.20) K/uL Sodium 137 (136-145) mmol/L Potassium 3.8 (3.5-5.1) mmol/L Chloride 100 (98-107) mmol/L Carbon Dioxide 26 (21-32) mmol/L Anion Gap 11 (3-11) BUN 32 H (6-23) mg/dl Creatinine 1.94 H (0.6-1.4) mg/dl Est Cr Clr Drug Dosing 39.4 ml/min Est GFR ( Amer) 38.7 ml/min Est GFR (Non-Af Amer) 33.4 ml/min BUN/Creatinine Ratio 16.5 (10-20) Glucose 106 H (70-99(Fasting)) mg/dl Calcium 9.6 (8.6-10.3) mg/dl Magnesium 2.0 (1.7-2.4) mg/dl Total Bilirubin 2.7 H (0.2-1.0) mg/dl AST 27 (13-39) U/L ALT 9 (7-52) U/L Alkaline Phosphatase 46 (34-104) U/L Total Creatine Kinase 1164 H (30-223) U/L Troponin I High Sens 81.5 H* (0-20) pg/ml B-Natriuretic Peptide 949 H (0-100) pg/ml Total Protein 7.5 (6.0-8.3) gm/dl Albumin 4.1 (3.4-5.0) gm/dl Globulin 3.4 (2.5-4.0) gm/dl Albumin/Globulin Ratio 1.2 (0.9-2) TSH 2.012 (0.300-4.500) uIu/ml Urine Color Yellow Urine Appearance Clear (Clear) Urine pH 5.5 (4.5-7.5) Ur Specific [place] 1.008 (1.000-1.030) Urine Protein Negative (Negative) Urine Glucose (UA) Negative (Negative) Urine Ketones Negative (Negative) Urine Blood 1+ H (Negative) Urine Nitrite Negative (Negative) Urine Bilirubin Negative (Negative) Urine Urobilinogen Negative (Negative) Ur Leukocyte Esterase Negative (Negative) Urine WBC (Auto) 1-5 (0-5) /hpf Urine RBC (Auto) 0-4 (0-4) /hpf U Hyaline Cast (Auto) 1-5 (0-5) /lpf U Epithel Cells (Auto) 5-10 H (0-5) /lpf Urine Bacteria (Auto) Negative (Negative) Digoxin (0.8-2.0) ng/ml Adenovirus (PCR) Not Detected (NotDetected) B. pertussis DNA (PCR) Not Detected (NotDetected) B.parapertussis DNA PCR Not Detected (NotDetected) C. pneumoniae DNA (PCR) Not Detected (NotDetected) Coronavirus OC43 (PCR) Not Detected (NotDetected) Coronavirus HKU1 (PCR) Not Detected (NotDetected) Coronavirus 229E (PCR) Not Detected (NotDetected) SARS-CoV-2 (PCR) Not Detected (NotDetected) Coronavirus NL63 (PCR) Not Detected (NotDetected) Human Metapneumovir PCR Not Detected (NotDetected) Influenza Type A (PCR) Not Detected (NotDetected) Influenza Type B (PCR) Not Detected (NotDetected) M. pneumoniae (PCR) Not Detected (NotDetected) Parainfluenza 1 (PCR) Not Detected (NotDetected) Parainfluenza 2 (PCR) Not Detected (NotDetected) Parainfluenza 3 (PCR) Not Detected (NotDetected) Parainfluenza 4 (PCR) Not Detected (NotDetected) RSV (PCR) Not Detected (NotDetected) Entero/Rhino (PCR) Not Detected (NotDetected) 04/21/23 Range/Units 18:06 WBC (4.8-10.8) K/ul RBC (4.70-6.10) M/uL Hgb (14.0-18.0) g/dl Hct (42.0-52.0) % MCV (80.0-100.0) fL MCH (25.0-34.0) pg MCHC (32.0-36.0) g/dL RDW Std Deviation (36.4-46.3) fL RDW Coeff of Sonja (11.5-14.5) % Plt Count (130-400) K/uL MPV (9.4-12.4) fL Immature Gran % (Auto) % Neut % (Auto) % Lymph % (Auto) % [place] % (Auto) % Eos % (Auto) % Baso % (Auto) % Neut # (Auto) (1.40-6.50) K/uL Lymph # (Auto) (1.20-3.40) K/uL [place] # (Auto) (0.11-0.59) K/uL Eos # (Auto) (0.00-0.50) K/uL Baso # (Auto) (0.00-0.20) K/uL Immature Gran # (Auto) (0.01-0.20) K/uL Sodium (136-145) mmol/L Potassium (3.5-5.1) mmol/L Chloride (98-107) mmol/L Carbon Dioxide (21-32) mmol/L Anion Gap (3-11) BUN (6-23) mg/dl Creatinine (0.6-1.4) mg/dl Est Cr Clr Drug Dosing ml/min Est GFR ( Amer) ml/min Est GFR (Non-Af Amer) ml/min BUN/Creatinine Ratio (10-20) Glucose (70-99(Fasting)) mg/dl Calcium (8.6-10.3) mg/dl Magnesium (1.7-2.4) mg/dl Total Bilirubin (0.2-1.0) mg/dl AST (13-39) U/L ALT (7-52) U/L Alkaline Phosphatase (34-104) U/L Total Creatine Kinase (30-223) U/L Troponin I High Sens 96.9 H* D (0-20) pg/ml B-Natriuretic Peptide (0-100) pg/ml Total Protein (6.0-8.3) gm/dl Albumin (3.4-5.0) gm/dl Globulin (2.5-4.0) gm/dl Albumin/Globulin Ratio (0.9-2) TSH (0.300-4.500) uIu/ml Urine Color Urine Appearance (Clear) Urine pH (4.5-7.5) Ur Specific [place] (1.000-1.030) Urine Protein (Negative) Urine Glucose (UA) (Negative) Urine Ketones (Negative) Urine Blood (Negative) Urine Nitrite (Negative) Urine Bilirubin (Negative) Urine Urobilinogen (Negative) Ur Leukocyte Esterase (Negative) Urine WBC (Auto) (0-5) /hpf Urine RBC (Auto) (0-4) /hpf U Hyaline Cast (Auto) (0-5) /lpf U Epithel Cells (Auto) (0-5) /lpf Urine Bacteria (Auto) (Negative) Digoxin 0.4 L (0.8-2.0) ng/ml Adenovirus (PCR) (NotDetected) B. pertussis DNA (PCR) (NotDetected) B.parapertussis DNA PCR (NotDetected) C. pneumoniae DNA (PCR) (NotDetected) Coronavirus OC43 (PCR) (NotDetected) Coronavirus HKU1 (PCR) (NotDetected) Coronavirus 229E (PCR) (NotDetected) SARS-CoV-2 (PCR) (NotDetected) Coronavirus NL63 (PCR) (NotDetected) Human Metapneumovir PCR (NotDetected) Influenza Type A (PCR) (NotDetected) Influenza Type B (PCR) (NotDetected) M. pneumoniae (PCR) (NotDetected) Parainfluenza 1 (PCR) (NotDetected) Parainfluenza 2 (PCR) (NotDetected) Parainfluenza 3 (PCR) (NotDetected) Parainfluenza 4 (PCR) (NotDetected) RSV (PCR) (NotDetected) Entero/Rhino (PCR) (NotDetected) Administered Medications Discontinued Medications Furosemide (Furosemide 40 Mg/4 Ml Vial) 60 mg IV ONE ONE Stop: 04/21/23 17:24 Last Admin: 04/21/23 17:58 Dose: 60 mg Documented By: TNK Sodium Chloride (Nss) 1,000 mls @ 125 mls/hr IV .Q8H RYLIE Stop: 05/21/23 17:29 Last Admin: 04/21/23 17:58 Dose: 125 mls/hr Documented By: TNK Imaging Data Radiologist's Impression: Chest X-Ray 04/21/23 15:46 XR chest 1V portable CLINICAL HISTORY: Weakness. COMPARISON STUDY: Chest radiograph and chest CT December 08, 2022. FINDINGS: There is no pneumothorax. Trace bilateral pleural effusions are present. Moderate cardiomegaly is unchanged. There is pulmonary vascular congestion without overt pulmonary edema. Tortuosity of the descending thoracic aorta is incidentally noted. Mediastinal contours are stable. There is no consolidation to suggest pneumonia. IMPRESSION: Cardiomegaly with pulmonary vascular congestion. Trace bilateral pleural effusions. ACT 112: Negative or not required by law. Electronically signed by: Juan Manrique M.D. 04/21/2023 5:09 PM Venous Doppler Study 04/21/23 15:46 LEFT LOWER EXTREMITY VENOUS DOPPLER CLINICAL HISTORY: non traumatic leg swelling COMPARISON STUDY: No previous studies for comparison. TECHNIQUE: Sonography of the deep venous system of the left lower extremity was performed. Compression and augmentation were evaluated. FINDINGS: The left common femoral, superficial femoral and popliteal veins were compressible. Augmentation was normal. Flow was shown within the deep calf vessels. IMPRESSION: No evidence of deep venous thrombus within the left lower extremity. ACT 112: Negative or not required by law. Electronically signed by: Juan Manrique M.D. 04/21/2023 5:27 PM Discharge Plan Visit Data Chief Complaint: Leg Weakness, Bilateral ED Provider: David Dhaliwal Discharge Problem: Generalized weakness, Acute pain of left lower extremity, Bilateral lower extremity edema, Elevated troponin Forms Stand Alone Forms: My [facility] Prescriptions Prescriptions: No Action atorvastatin 80 mg tablet 80 mg PO HS Qty: 90 3RF Jardiance 10 mg tablet 10 mg PO DAILY Qty: 30 11RF modafinil 100 mg tablet 100 mg PO QAM Qty: 30 5RF levothyroxine 75 mcg tablet 75 mcg PO DAILYBB Qty: 90 3RF Entresto 97-103 mg tablet 1 tab PO BID Qty: 60 11RF apixaban 5 mg tablet 5 mg PO BID Qty: 180 3RF metoprolol succinate 200 mg tablet extended release 24 hr 200 mg PO QAM 90 Days Qty: 90 3RF Brilinta 90 mg tablet 90 mg PO BID Qty: 180 3RF mupirocin 2 % ointment 1 applic topical TID Qty: 22 0RF bumetanide 2 mg tablet 3 mg PO DAILY nitroglycerin [Nitrostat] 0.4 mg Tablet, Sublingual 0.4 mg Sublingual UD PRN (Reason: Chest Pain) coenzyme Q10 100 mg Tablet 100 mg PO QAM spironolactone 25 mg tablet 25 mg PO QAM digoxin 125 mcg (0.125 mg) tablet 125 mcg PO HS Referrals Referrals: Thi Montaño MD [Primary Care Provider] -
--- NOTE | 2023-04-21 17:10 | XRay Report ---
XR chest 1V portable CLINICAL HISTORY: Weakness. COMPARISON STUDY: Chest radiograph and chest CT December 08, 2022. FINDINGS: There is no pneumothorax. Trace bilateral pleural effusions are present. Moderate cardiomeg riley is unchanged. There is pulmonary vascular congestion without overt pulmonary edema. Tortuosity of the descending thoracic aorta is incidentally noted. Mediastinal contours are stable. There is no co nsolidation to suggest pneumonia. IMPRESSION: Cardiomegaly with pulmonary vascular congestion. Trace bilateral pleural effusions. ACT 112: Negative or not required by law. Electronically signed by: Juan Manrique M.D. 04/21/2023 5:09 PM
[2023-04-21] MEDS ORDERED: FUROSEMIDE 40 MG/4 ML VIAL IV ONE (17:23)
--- NOTE | 2023-04-21 17:28 | Ultrasound Report ---
LEFT LOWER EXTREMITY VENOUS DOPPLER CLINICAL HISTORY: non traumatic leg swelling COMPARISON STUDY: No previous studies for comparison. TECHNIQUE: Sonography of the deep venous system of the left lower extremity was performed. Compressi on and augmentation were evaluated. FINDINGS: The left common femoral, superficial femoral and popliteal veins were compressible. Augmen tation was normal. Flow was shown within the deep calf vessels. IMPRESSION: No evidence of deep venous thrombus within the left lower extremity. ACT 112: Negative or not required by law. Electronically signed by: Juan Manrique M.D. 04/21/2023 5:27 PM
[2023-04-21] MEDS ORDERED: SODIUM CHLORIDE 0.9% 1,000 ML IV SCH (17:30)
[2023-04-21 17:34] LABS: Adenovirus PCR Not Detected (NotDetected); Bordetella parapertussis PCR Not Detected (NotDetected); Bordetella pertussis PCR Not Detected (NotDetected); Chlamydia pneumoniae PCR Not Detected (NotDetected); Coronavirus 229E PCR Not Detected (NotDetected); Coronavirus CoV-2 (COVID19)PCR Not Detected (NotDetected); Coronavirus HKU1 PCR Not Detected (NotDetected); Coronavirus NL63 PCR Not Detected (NotDetected); Coronavirus OC43PCR Not Detected (NotDetected); Human Metapneumovirus PCR Not Detected (NotDetected); Influenza A PCR Not Detected (NotDetected); Influenza B PCR Not Detected (NotDetected); Mycoplasma pneumoniae PCR Not Detected (NotDetected); Parainfluenza Virus 1 PCR Not Detected (NotDetected); Parainfluenza Virus 2 PCR Not Detected (NotDetected); Parainfluenza Virus 3 PCR Not Detected (NotDetected); Parainfluenza Virus 4 PCR Not Detected (NotDetected); Respiratory Syncytial VirusPCR Not Detected (NotDetected); Rhinovirus/Enterovirus PCR Not Detected (NotDetected)
[2023-04-21 18:17] LABS: Appearance Urine Clear (Clear); Bacteria Urine Automated Negative (Negative); Bilirubin Urine Negative (Negative); Blood Urine 1+ (Negative); Color Urine Yellow; Glucose Urine UA Negative (Negative); Ketones Urine Negative (Negative); Leukocyte Esterase Urine Negative (Negative); Nitrite Urine Negative (Negative); Protein Urine Negative (Negative); RBC Urine Automated 0-4 /hpf (0-4); Specific Gravity Urine 1.008 (1.000-1.030); Urobilinogen Urine Negative (Negative); pH Urine 5.5 (4.5-7.5)
--- NOTE | 2023-04-21 19:08 | History & Physical Report ---
Date of Service April 21, 2023 Assessment & Plan (1) Elevated troponin: (2) Bilateral lower extremity edema: (3) Cellulitis of left lower extremity: (4) Acute pain of left lower extremity: (5) Generalized weakness: (6) BPH (benign prostatic hyperplasia): (7) Cardiomyopathy: (8) Chronic systolic CHF (congestive heart failure): (9) Acute kidney injury superimposed on CKD: (10) Ischemic cardiomyopathy: (11) Mild cognitive impairment: (12) Atrial fibrillation: (13) CAD (coronary artery disease): Plan Elevated troponin/CAD/hypertension/chronic systolic CHF/cardiomyopathy/atrial fibrillation- The patient will be admitted to telemetry for serial cardiac enzymes, serial EKG's, cardiac rhythm monitoring Initial troponin 81.5, with follow-up 96.9 Continue digoxin 125 mcg p.o. daily and apixaban 5 mg p.o. twice daily Change metoprolol succinate from 200 mg every morning to 100 mg p.o. twice daily Hold Entresto, spironolactone, and bumetanide Received furosemide 60 mg IV in the ED Stop the normal saline at 125 mL hours which was started by the ED Prior to discharge he may need to have resumption of his bumetanide at higher dosing. atmost recent heart failure visit, his bumetanide was decreased from 3 mg twice daily to 3 mg daily Reassess fluid balance in the a.m. Left lower extremity cellulitis/bilateral lower extremity edema/chronic venous insufficiency- Daptomycin IV and cefepime IV Consult wound care, with patient's borderline blood pressure, he would likely benefit from Unna boots to help with wound healing and fluid management Venous Doppler negative for DVT left lower extremity Acute kidney injury superimposed on CKD- Creatinine 1.94, with base 1.47 May be an element of rhabdomyolysis, with CK on admission 1164 Generalized weakness and fatigue- BioFire testing negative Likely combination of left lower extremity cellulitis and fluid overload History of Present Illness Chief Complaint: The patient presents to the emergency department with 3 to 4 days of worsening generalized weakness, painful left lower extremity, and bilateral lower extremity edema. Primary Care Provider: Thi Montaño MD The patient is a 72-year-old male with a past medical history including BPH, cardiomyopathy, chronic systolic CHF, ischemic cardiomyopathy, history of arterial ischemic stroke, hypertension, three-vessel CAD, hypothyroidism, moderate obstructive sleep apnea and hyperlipidemia. The patient reports that he has been too weak over the past 3 to 4 days to get to the sink to drink much fluids, and his daughter reports that she brought him for large [place] mugs of water when she got there to see him this afternoon. His main complaint is that of left lower extremity pain and redness worsening over the past several days. He denies any fevers or chills. He has had some chronic shortness of breath. Allergies Allergy/AdvReac Type Severity Reaction Status Date / Time donepezil Allergy Unknown SEE COMMENT Verified 04/21/23 18:28 duloxetine [From Cymbalta] Allergy Unknown SEE COMMENT Verified 04/21/23 18:28 Home Medications Medication Instructions Recorded Confirmed Type coenzyme Q10 100 mg tablet 100 mg PO QAM 12/31/17 04/21/23 History nitroglycerin 0.4 mg sublingual 0.4 mg sublingual UD PRN Chest Pain 12/31/17 04/21/23 History tablet (Nitrostat) atorvastatin 80 mg tablet 80 mg PO HS #90 tabs 04/03/22 04/21/23 Rx empagliflozin 10 mg tablet 10 mg PO DAILY #30 tabs 08/25/22 04/21/23 Rx (Jardiance) modafinil 100 mg tablet 100 mg PO QAM #30 tabs 10/15/22 04/21/23 Rx digoxin 125 mcg (0.125 mg) tablet 125 mcg PO HS 12/08/22 04/21/23 History spironolactone 25 mg tablet 25 mg PO QAM 12/08/22 04/21/23 History levothyroxine 75 mcg tablet 75 mcg PO DAILYBB #90 tabs 12/11/22 04/21/23 Rx sacubitril 97 mg-valsartan 103 mg 1 tab PO BID #60 tabs 01/14/23 04/21/23 Rx tablet (Entresto) mupirocin 2 % topical ointment 1 applic topical TID #22 grams 02/22/23 04/21/23 Rx apixaban 5 mg tablet 5 mg PO BID #180 tabs 03/17/23 04/21/23 Rx metoprolol succinate 200 mg 200 mg PO QAM 90 days #90 tabs 03/17/23 04/21/23 Rx tablet,extended release 24 hr ticagrelor 90 mg tablet (Brilinta) 90 mg PO BID #180 tabs 03/17/23 04/21/23 Rx bumetanide 2 mg tablet 3 mg PO DAILY 04/05/23 04/21/23 History Past Med/Surg History Medical History (Updated 04/21/23 @ 20:23 by Braydon Crow MD) Pulmonary edema Atrial fibrillation with rapid ventricular response Heart failure with mid-range ejection fraction (HFmEF) Enlarged prostate Kidney disease Facial droop Abnormal LFTs Facial droop due to acute cerebrovascular accident (CVA) Acute cerebrovascular accident (CVA) CHF exacerbation Hypoxia Pulmonary edema Acute kidney injury Altered mental state Acute CVA (cerebrovascular accident) Transaminitis Exposure to COVID-19 virus Bronchitis Memory loss due to CVA Myocardial Infarction [facility]- CATH- STENT- FOLLOWS WITH DR. BAKER Osteoarthritis Degenerative disc disease Tinnitus Sleep apnea NO CPAP Aneurysm BRAIN [facility] /UNSURE OF SIZE- FOLLOWS DR. BAKER Lumbar radiculopathy Acute respiratory failure with hypoxia Elevated TSH Chronic systolic heart failure H/O arterial ischemic stroke residual cognitive impairment. APR 25 2008/ [facility] /PLACED ON BLOOD THINNER Acute on chronic systolic (congestive) heart failure Atrial flutter with rapid ventricular response Nasal septal deviation Hypertension Surgical History H/O neck surgery History of left cataract surgery Aspiration into airway PER PATIENT, THIS HAPPENED AFTER E.T TUBE CAME OUT IN RECOVERY, THINKS IT WAS 2005, DOES NOT REMEMBER WHAT PROCEDURE BUT THINKS IT WAS AT [facility]- POOR HISTORIAN (HX STROKE) History of colonoscopy Hx of umbilical hernia repair History of deviated nasal septum WITH REPAIR History of cardioversion [facility] 2017 S/P cardiac catheterization ONE @ [facility]/ ONE @ [facility] - 2016 & 2017- [facility]- [place] H/O hernia repair Family History Mother Diabetes Depression Unknown No problems noted. Father Myocardial infarction Grandfather (Paternal) Myocardial infarction Brother Myocardial infarction Sister Depression Other No family history of adverse response to anesthesia No family history of bleeding disorder Denies family history of Colon cancer Ovarian cancer Prostate cancer Breast cancer Social History Smoking Status: Never smoker Age Started Using Tobacco: 22; Age Quit Using Tobacco: 37; Cigarettes Per Day: 30 YEARS AGO; Second Hand Exposure: No; Do You Dip or Chew Tobacco: No; Hx Alcohol Use: No Hx Substance Use: No Preferred Language: Cuban Communication Ability: Effective Visual Impairment: No Limitations Hearing Ability: Normal [facility] Chief Financial Officer Required: Voice Beliefs That Will Affect Care: None marital status: Current Living Situation: Alone current occupational status: retired and disabled How many Children do You have: 1 Feels Safe at Home: Yes Childhood Exposure to Second-Hand Smoke: Yes Dental Care, Regularly: Yes Physical Activity Frequency: Daily Seatbelt Use: always Sunscreen Use: No Assistive Devices: Cane Review of Systems Review of Systems: The patient denies chest pain, palpitations, cough, sore throat, fevers, chills, sweats, nausea, vomiting, diarrhea , constipation, abdominal pain, pelvic pain, blood in urine or stool, dysuria, urinary frequency or urgency, lightheadedness, dizziness, headache, memory loss, loss of consciousness, abnormal bruising or bleeding, focal or weakness, numbness or tingling in arms, generalized arthralgias or myalgias, back or neck pain, or night sweats. The review of systems is otherwise negative other than for that already noted above, and at least 10 systems have been reviewed. Physical Exam Physical Exam: The patient is awake, alert and oriented 3, well developed and well nourished, normocephalic and atraumatic, lying in bed and in no acute distress. HEENT--PERRL, EOMI, mucous membranes and oropharynx mildly dry. Neck--supple. No JVD. No bruits. Thyroid normal, trachea midline, no adenopathy. Heart--normal S1 and S2. No murmurs, rubs or gallops. Lungs-- few crackles at the bases bilaterally. No respiratory distress, no accessory muscle use. Abdomen--normal bowel sounds and soft. Nontender. Nondistended. Obese Extremities--2+ bilateral pretibial edema, left greater than right. Dermatologic--left anterior tibial surface of mild to moderate erythema and vacuolization, greater than right Neurologic--cranial nerves II through XII grossly intact. Rheumatologic--limited exam due to fatigue and general weakness Psychiatric--normal affect. Results & Data Results & Data Vital Signs (Past 12 Hours) Vital Signs Temp Pulse Pulse Resp BP BP Pulse Ox 04/21/23 17:55 105 H 18 101/68 97 04/21/23 15:52 119 H 20 96 04/21/23 15:41 36.9 C 123 H 20 122/86 96 04/21/23 15:41 36.9 C 123 H 20 122/86 96 O2 Del Method 04/21/23 17:55 Room Air 04/21/23 15:52 Room Air 04/21/23 15:41 Room Air 04/21/23 15:41 Room Air Laboratory Results Laboratory Results WBC 13.50 K/ul (4.8-10.8) H 04/21/23 15:25 RBC 4.26 M/uL (4.70-6.10) L 04/21/23 15:25 Hgb 14.3 g/dl (14.0-18.0) 04/21/23 15:25 Hct 42.8 % (42.0-52.0) 04/21/23 15:25 MCV 100.5 fL (80.0-100.0) H 04/21/23 15:25 MCH 33.6 pg (25.0-34.0) 04/21/23 15:25 MCHC 33.4 g/dL (32.0-36.0) 04/21/23 15:25 RDW Std Deviation 51.5 fL (36.4-46.3) H 04/21/23 15:25 RDW Coeff of Sonja 14.1 % (11.5-14.5) 04/21/23 15:25 Plt Count 274 K/uL (130-400) 04/21/23 15:25 MPV 10.7 fL (9.4-12.4) 04/21/23 15:25 Immature Gran % (Auto) 0.7 % 04/21/23 15:25 Neut % (Auto) 78.5 % 04/21/23 15:25 Lymph % (Auto) 8.4 % 04/21/23 15:25 [place] % (Auto) 11.9 % 04/21/23 15:25 Eos % (Auto) 0.1 % 04/21/23 15:25 Baso % (Auto) 0.4 % 04/21/23 15:25 Neut # (Auto) 10.59 K/uL (1.40-6.50) H 04/21/23 15:25 Lymph # (Auto) 1.13 K/uL (1.20-3.40) L 04/21/23 15:25 [place] # (Auto) 1.61 K/uL (0.11-0.59) H 04/21/23 15:25 Eos # (Auto) 0.02 K/uL (0.00-0.50) 04/21/23 15:25 Baso # (Auto) 0.06 K/uL (0.00-0.20) 04/21/23 15:25 Immature Gran # (Auto) 0.09 K/uL (0.01-0.20) 04/21/23 15:25 Sodium 137 mmol/L (136-145) 04/21/23 15:25 Potassium 3.8 mmol/L (3.5-5.1) 04/21/23 15:25 Chloride 100 mmol/L (98-107) 04/21/23 15:25 Carbon Dioxide 26 mmol/L (21-32) 04/21/23 15:25 Anion Gap 11 (3-11) 04/21/23 15:25 BUN 32 mg/dl (6-23) H 04/21/23 15:25 Creatinine 1.94 mg/dl (0.6-1.4) H 04/21/23 15:25 Est Cr Clr Drug Dosing 39.4 ml/min 04/21/23 15:25 Est GFR ( Amer) 38.7 ml/min 04/21/23 15:25 Est GFR (Non-Af Amer) 33.4 ml/min 04/21/23 15:25 BUN/Creatinine Ratio 16.5 (10-20) 04/21/23 15:25 Glucose 106 mg/dl (70-99(Fasting)) H 04/21/23 15:25 Calcium 9.6 mg/dl (8.6-10.3) 04/21/23 15:25 Magnesium 2.0 mg/dl (1.7-2.4) 04/21/23 15:25 Total Bilirubin 2.7 mg/dl (0.2-1.0) H 04/21/23 15:25 AST 27 U/L (13-39) 04/21/23 15:25 ALT 9 U/L (7-52) 04/21/23 15:25 Alkaline Phosphatase 46 U/L (34-104) 04/21/23 15:25 Total Creatine Kinase 1164 U/L (30-223) H 04/21/23 15:25 Troponin I High Sens 96.9 pg/ml (0-20) H* D 04/21/23 18:06 B-Natriuretic Peptide 949 pg/ml (0-100) H 04/21/23 15:25 Total Protein 7.5 gm/dl (6.0-8.3) 04/21/23 15:25 Albumin 4.1 gm/dl (3.4-5.0) 04/21/23 15:25 Globulin 3.4 gm/dl (2.5-4.0) 04/21/23 15:25 Albumin/Globulin Ratio 1.2 (0.9-2) 04/21/23 15:25 TSH 2.012 uIu/ml (0.300-4.500) 04/21/23 15:25 Urine Color Yellow 04/21/23 17:52 Urine Appearance Clear (Clear) 04/21/23 17:52 Urine pH 5.5 (4.5-7.5) 04/21/23 17:52 Ur Specific [place] 1.008 (1.000-1.030) 04/21/23 17:52 Urine Protein Negative (Negative) 04/21/23 17:52 Urine Glucose (UA) Negative (Negative) 04/21/23 17:52 Urine Ketones Negative (Negative) 04/21/23 17:52 Urine Blood 1+ (Negative) H 04/21/23 17:52 Urine Nitrite Negative (Negative) 04/21/23 17:52 Urine Bilirubin Negative (Negative) 04/21/23 17:52 Urine Urobilinogen Negative (Negative) 04/21/23 17:52 Ur Leukocyte Esterase Negative (Negative) 04/21/23 17:52 Urine WBC (Auto) 1-5 /hpf (0-5) 04/21/23 17:52 Urine RBC (Auto) 0-4 /hpf (0-4) 04/21/23 17:52 U Hyaline Cast (Auto) 1-5 /lpf (0-5) 04/21/23 17:52 U Epithel Cells (Auto) 5-10 /lpf (0-5) H 04/21/23 17:52 Urine Bacteria (Auto) Negative (Negative) 04/21/23 17:52 Digoxin 0.4 ng/ml (0.8-2.0) L 04/21/23 18:06 Adenovirus (PCR) Not Detected (NotDetected) 04/21/23 16:32 B. pertussis DNA (PCR) Not Detected (NotDetected) 04/21/23 16:32 B.parapertussis DNA PCR Not Detected (NotDetected) 04/21/23 16:32 C. pneumoniae DNA (PCR) Not Detected (NotDetected) 04/21/23 16:32 Coronavirus OC43 (PCR) Not Detected (NotDetected) 04/21/23 16:32 Coronavirus HKU1 (PCR) Not Detected (NotDetected) 04/21/23 16:32 Coronavirus 229E (PCR) Not Detected (NotDetected) 04/21/23 16:32 SARS-CoV-2 (PCR) Not Detected (NotDetected) 04/21/23 16:32 Coronavirus NL63 (PCR) Not Detected (NotDetected) 04/21/23 16:32 Human Metapneumovir PCR Not Detected (NotDetected) 04/21/23 16:32 Influenza Type A (PCR) Not Detected (NotDetected) 04/21/23 16:32 Influenza Type B (PCR) Not Detected (NotDetected) 04/21/23 16:32 M. pneumoniae (PCR) Not Detected (NotDetected) 04/21/23 16:32 Parainfluenza 1 (PCR) Not Detected (NotDetected) 04/21/23 16:32 Parainfluenza 2 (PCR) Not Detected (NotDetected) 04/21/23 16:32 Parainfluenza 3 (PCR) Not Detected (NotDetected) 04/21/23 16:32 Parainfluenza 4 (PCR) Not Detected (NotDetected) 04/21/23 16:32 RSV (PCR) Not Detected (NotDetected) 04/21/23 16:32 Entero/Rhino (PCR) Not Detected (NotDetected) 04/21/23 16:32 Impressions Chest X-Ray 04/21/23 15:46 XR chest 1V portable CLINICAL HISTORY: Weakness. COMPARISON STUDY: Chest radiograph and chest CT December 08, 2022. FINDINGS: There is no pneumothorax. Trace bilateral pleural effusions are present. Moderate cardiomegaly is unchanged. There is pulmonary vascular congestion without overt pulmonary edema. Tortuosity of the descending thoracic aorta is incidentally noted. Mediastinal contours are stable. There is no consolidation to suggest pneumonia. IMPRESSION: Cardiomegaly with pulmonary vascular congestion. Trace bilateral pleural effusions. ACT 112: Negative or not required by law. Electronically signed by: Juan Manrique M.D. 04/21/2023 5:09 PM Venous Doppler Study 04/21/23 15:46 LEFT LOWER EXTREMITY VENOUS DOPPLER CLINICAL HISTORY: non traumatic leg swelling COMPARISON STUDY: No previous studies for comparison. TECHNIQUE: Sonography of the deep venous system of the left lower extremity was performed. Compression and augmentation were evaluated. FINDINGS: The left common femoral, superficial femoral and popliteal veins were compressible. Augmentation was normal. Flow was shown within the deep calf vessels. IMPRESSION: No evidence of deep venous thrombus within the left lower extremity. ACT 112: Negative or not required by law. Electronically signed by: Juan Manrique M.D. 04/21/2023 5:27 PM Code Status & VTE Plan Code Status Full code VTE Prophylaxis Plan VTE Prophylaxis will be ordered: Yes PG Care Time/CCT Total # of Minutes Spent Total Time Spent with Patient: Total time spent is greater than 50% in coordination of care (as documented) at patient's floor/unit and/or counseling patient: Coding Level of Care Code 36358 INT INP/OBS CARE 3/75MIN Diagnoses Elevated troponin R79.89 Bilateral lower extremity edema R60.0 Cellulitis of left lower extremity L03.116 Acute pain of left lower extremity M79.605 Generalized weakness R53.1 BPH (benign prostatic hyperplasia) N40.0 Cardiomyopathy I42.9 Chronic systolic CHF (congestive heart failure) I50.22 Acute kidney injury superimposed on CKD N17.9; N18.9 Ischemic cardiomyopathy I25.5 Mild cognitive impairment G31.84 Atrial fibrillation I48.91 Coronary artery disease of [place] artery of [place] heart with stable angina pectoris I25.118 Associated angina: with stable angina Coronary Disease-Associated Artery/Lesion type: [place] artery [place] vs. transplanted heart: [place] heart (13) CAD (coronary artery disease) Associated angina: with stable angina Coronary Disease-Associated Artery/Lesion type: [place] artery [place] vs. transplanted heart: [place] heart Qualified Code(s): I25.118 - Atherosclerotic heart disease of [place] coronary artery with other forms of angina pectoris
[2023-04-21] MEDS: CEFEPIME 2,000 MG in SYRINGE 0 ML IV SCH (20:19)
[2023-04-21] MEDS ORDERED: GLUCAGON FOR INJ 1 MG VIAL SQ PRN (21:07)
[2023-04-21] MEDS ORDERED: GLUCOSE 10 TAB/TUBE PO PRN (21:07)
[2023-04-21] MEDS ORDERED: DEXTROSE 50% 50 ML SYRINGE IV PRN (21:07)
[2023-04-21] MEDS ORDERED: DIGOXIN 0.125 MG TAB PO SCH (21:07)
[2023-04-21] MEDS ORDERED: CARBOHYDRATES FOR HYPOGLYCEMIA PO PRN (21:07)
[2023-04-21] MEDS ORDERED: ACETAMINOPHEN 325 MG TAB PO PRN (21:07)
[2023-04-21] MEDS ORDERED: ONDANSETRON INJ 2 MG/ML 2 ML VIAL IV PRN (21:07)
[2023-04-21] MEDS ORDERED: GLUCOSE 40% GEL 15 GM TUBE PO PRN (21:07)
[2023-04-21] MEDS: INSULIN ASPART PER UNIT CHARGE SC SCH (22:13)
[2023-04-21] MEDS: DAPTOmycin 325 MG in SYRINGE 0 ML IV SCH (22:18)
[2023-04-21] MEDS: TICAGRELOR 90 MG TAB PO SCH (22:19)
[2023-04-21] MEDS: APIXABAN 5 MG TABLET PO SCH (22:19)
[2023-04-21] MEDS: METOPROLOL SUCC 50MG EXT REL TAB PO SCH (22:30)
[2023-04-22] MEDS: LEVOTHYROXINE SODIUM 75 MCG TABLET PO SCH (06:10)
[2023-04-22] MEDS: INSULIN ASPART PER UNIT CHARGE SC SCH ×4 (07:45→20:28)
[2023-04-22] MEDS: CEFEPIME 2,000 MG in SYRINGE 0 ML IV SCH ×2 (07:45→20:27)
[2023-04-22 07:56] LABS: Basophils # (auto) 0.05 K/uL (0.00-0.20); Basophils % (auto) 0.4 %; Eosinophils # (auto) 0.07 K/uL (0.00-0.50); Eosinophils % (auto) 0.6 %; Hematocrit (blood only) 37.9 % (42.0-52.0); Hemoglobin 12.9 g/dl (14.0-18.0); Immature Granulocytes # (auto) 0.05 K/uL (0.01-0.20); Immature Granulocytes % (auto) 0.4 %; Lymphocytes # (auto) 1.13 K/uL (1.20-3.40); Lymphocytes % (auto) 9.7 %; Mean Corpuscular Hemoglobin 33.6 pg (25.0-34.0); Mean Corpuscular Volume 98.7 fL (80.0-100.0); Mean Platelet Volume 10.9 fL (9.4-12.4); Monocytes # (auto) 1.23 K/uL (0.11-0.59); Monocytes % (auto) 10.5 %; Neutrophils # (auto) 9.17 K/uL (1.40-6.50); Neutrophils % (auto) 78.4 %; Platelet Count 240 K/uL (130-400); RDW Coefficient of Variation 13.7 % (11.5-14.5); RDW Standard Deviation 49.2 fL (36.4-46.3); Red Blood Count 3.84 M/uL (4.70-6.10)
[2023-04-22 08:01] LABS: Albumin Globulin Ratio 1.2 (0.9-2); Albumin Level 3.4 gm/dl (3.4-5.0); BUN Creatinine Ratio 18.8 (10-20); Bilirubin,Total 2.5 mg/dl (0.2-1.0); Calcium 8.7 mg/dl (8.6-10.3); Creatinine Clr Calc Pharmacy 38.8 ml/min; Est GFR (African American) 39.2 ml/min; Est GFR (Non-African American) 33.8 ml/min; Globulin 2.9 gm/dl (2.5-4.0); Magnesium 1.9 mg/dl (1.7-2.4); Potassium 3.3 mmol/L (3.5-5.1); Total Protein 6.3 gm/dl (6.0-8.3)
[2023-04-22] MEDS ORDERED: FUROSEMIDE 40 MG/4 ML VIAL IV ONE (08:35)
[2023-04-22] MEDS ORDERED: POTASSIUM CHLORIDE CRTAB 20 MEQ TABCR PO STA (08:35)
[2023-04-22] MEDS: METOPROLOL SUCC 50MG EXT REL TAB PO SCH ×2 (08:53→20:27)
[2023-04-22] MEDS: APIXABAN 5 MG TABLET PO SCH ×2 (08:53→20:28)
[2023-04-22] MEDS: EMPAGLIFLOZIN 10 MG TAB PO SCH (08:53)
[2023-04-22] MEDS: TICAGRELOR 90 MG TAB PO SCH ×2 (08:54→20:28)
[2023-04-22] MEDS: modafiniL 100 MG TAB PO SCH (08:56)
[2023-04-22] MEDS ORDERED: NON-FORMULARY MEDICATION (Coenzyme Q10 100 mg Tablet) PO SCH (09:00)
--- NOTE | 2023-04-22 11:05 | Electrocardiogram Report ---
Test Reason : Blood Pressure : / mmHG Vent. Rate : 132 BPM Atrial Rate : 115 BPM P-R Int : 160 ms QRS Dur : 068 ms QT Int : 310 ms P-R-T Axes : 000 -33 -34 degrees QTc Int : 459 ms Atrial fibrillation Left axis deviation Low voltage QRS Abnormal ECG Confirmed by Pineda Morejon ([id number]) on 04/22/2023 11:04:50 AM Referred By: Confirmed By:William Morejon
[2023-04-22 12:24] LABS: Estimated Average Glucose 105 mg/dl; Hemoglobin A1C 5.3 % (4.5-5.6)
--- NOTE | 2023-04-22 12:30 | Cardiology Consultation ---
Date of Consultation April 22, 2023 Assessment & Plan (1) Chronic systolic CHF (congestive heart failure): (2) Elevated troponin: (3) Ischemic cardiomyopathy: (4) Atrial fibrillation: (5) Mitral regurgitation: Plan 1. decompensated heart failure with reduced ejection fraction: He presented with an element of pulmonary vascular congestion and edema. As has been documented previously he has an element of noncompliance with medical therapy. He does not weigh his self at home. He did have a significant diuresis since admission, net negative over 2 L. BUN rising slightly. He seemed quite comfortable in bed and is examination was normal. I think he could resume his usual outpatient diuretic regimen at this point. 2. Elevated troponin: In the setting of decompensated heart failure. Not associated with an acute coronary event. I do not think this requires any additional ischemic evaluation. 3. Ischemic cardiomyopathy: Longstanding. On an aggressive outpatient medical regimen to include metoprolol succinate, Entresto, spironolactone and Jardiance. I think holding the Entresto and spironolactone is reasonable for the time being. He may have an element of mild hypotension due to some intravascular depletion and possibly an infection. We will look for an opportunity to reinstitute his full medical regimen. 4. Coronary disease: No current symptoms suggestive of coronary insufficiency or angina. 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 He will continue aggressive secondary prevention with high- dose atorvastatin, apixaban and ticagrelor 5. Mitral regurgitation: Mild. 6. Atrial fibrillation: Mildly elevated rates. This may improve as the clinical condition improves. I do not think there is a need for more aggressive therapy at this time. Will have a better understanding of his rate control later in his admission and when he is more ambulatory. Continue systemic anticoagulation with apixaban 7. Lower extremity edema: Likely combination of venous insufficiency, mild right ventricular systolic failure, his known cardiomyopathy and possibly infection. As noted above I think he can likely be returned to his usual outpatient diuretic regimen 8. Cellulitis: Appears to have some erythema involving the left lower extremity. He noted significant discomfort at this site at the time of admission. He also seems to have a erythematous and swollen joint on the right hand. Currently on antibiotic therapy. History of Present Illness Reason for Consultation: Congestive heart failure, edema Requesting Physician: Olegario Attending Physician: Lorraine Melvin MD History of Present Illness The patient is a 72-year-old gentleman with a long history of coronary artery disease status post percutaneous intervention and associated ischemic cardiomyopathy was brought to the hospital by his daughter. It seems that the patient has been very weak recently. He apparently has had some difficulty being compliant with his medical therapy and also developed some pain in his lower extremities. He has had difficulty ambulating and his oral intake has been questionable. At the time I interviewed the patient was unable or unwilling to provide much history. He cannot recall much of the events leading up to his admission. He seemed another something wrong with his legs, but had difficulty expressing himself. He continues to have some discomfort in the left leg. He feels that he has some difficulty with ambulation due to difficulty with his legs. He did not endorse symptoms of breathing difficulty. He did not endorse symptoms of orthopnea. No recent chest pain. No dizziness or lightheadedness. He is unaware of any palpitations. He reports some difficulty with compliance of medications. He was also instructed to monitor his weight frequently but he and has not checked his weight in some time. Allergies Allergy/AdvReac Type Severity Reaction Status Date / Time donepezil Allergy Unknown SEE COMMENT Verified 04/21/23 18:28 duloxetine [From Cymbalta] Allergy Unknown SEE COMMENT Verified 04/21/23 18:28 Home Medications Medication Instructions Recorded Confirmed Type coenzyme Q10 100 mg tablet 100 mg PO QAM 12/31/17 04/21/23 History nitroglycerin 0.4 mg sublingual 0.4 mg sublingual UD PRN Chest Pain 12/31/17 04/21/23 History tablet (Nitrostat) atorvastatin 80 mg tablet 80 mg PO HS #90 tabs 04/03/22 04/21/23 Rx empagliflozin 10 mg tablet 10 mg PO DAILY #30 tabs 08/25/22 04/21/23 Rx (Jardiance) modafinil 100 mg tablet 100 mg PO QAM #30 tabs 10/15/22 04/21/23 Rx digoxin 125 mcg (0.125 mg) tablet 125 mcg PO HS 12/08/22 04/21/23 History spironolactone 25 mg tablet 25 mg PO QAM 12/08/22 04/21/23 History levothyroxine 75 mcg tablet 75 mcg PO DAILYBB #90 tabs 12/11/22 04/21/23 Rx sacubitril 97 mg-valsartan 103 mg 1 tab PO BID #60 tabs 01/14/23 04/21/23 Rx tablet (Entresto) mupirocin 2 % topical ointment 1 applic topical TID #22 grams 02/22/23 04/21/23 Rx apixaban 5 mg tablet 5 mg PO BID #180 tabs 03/17/23 04/21/23 Rx metoprolol succinate 200 mg 200 mg PO QAM 90 days #90 tabs 03/17/23 04/21/23 Rx tablet,extended release 24 hr ticagrelor 90 mg tablet (Brilinta) 90 mg PO BID #180 tabs 03/17/23 04/21/23 Rx bumetanide 2 mg tablet 3 mg PO DAILY 04/05/23 04/21/23 History Patient History Medical History (Updated 04/22/23 @ 12:23 by Pineda Morejon MD) Pulmonary edema Atrial fibrillation with rapid ventricular response Heart failure with mid-range ejection fraction (HFmEF) Enlarged prostate Kidney disease Facial droop Abnormal LFTs Facial droop due to acute cerebrovascular accident (CVA) Acute cerebrovascular accident (CVA) CHF exacerbation Hypoxia Pulmonary edema Acute kidney injury Altered mental state Acute CVA (cerebrovascular accident) Transaminitis Exposure to COVID-19 virus Bronchitis Memory loss due to CVA Myocardial Infarction [facility]- CATH- STENT- FOLLOWS WITH DR. BAKER Osteoarthritis Degenerative disc disease Tinnitus Sleep apnea NO CPAP Aneurysm BRAIN [facility] /UNSURE OF SIZE- FOLLOWS DR. BAKER Lumbar radiculopathy Acute respiratory failure with hypoxia Elevated TSH Chronic systolic heart failure H/O arterial ischemic stroke residual cognitive impairment. APR 25 2008/ [facility] /PLACED ON BLOOD THINNER Acute on chronic systolic (congestive) heart failure Atrial flutter with rapid ventricular response Nasal septal deviation Hypertension Surgical History H/O neck surgery History of left cataract surgery Aspiration into airway PER PATIENT, THIS HAPPENED AFTER E.T TUBE CAME OUT IN RECOVERY, THINKS IT WAS 2005, DOES NOT REMEMBER WHAT PROCEDURE BUT THINKS IT WAS AT [facility]- POOR HISTORIAN (HX STROKE) History of colonoscopy Hx of umbilical hernia repair History of deviated nasal septum WITH REPAIR History of cardioversion [facility] 2018 S/P cardiac catheterization ONE @ [facility]/ ONE @ [facility] - 2016 & 2017- [place]- FROM [place] H/O hernia repair Family History Mother Diabetes Depression Unknown No problems noted. Father Myocardial infarction Grandfather (Paternal) Myocardial infarction Brother Myocardial infarction Sister Depression Other No family history of adverse response to anesthesia No family history of bleeding disorder Denies family history of Colon cancer Ovarian cancer Prostate cancer Breast cancer Social History Smoking Status: Former smoker Age Started Using Tobacco: 22; Age Quit Using Tobacco: 37; Cigarettes Per Day: 30 YEARS AGO; Smoking End Date: 35 years ago; Second Hand Exposure: No; Do You Dip or Chew Tobacco: No; Hx Alcohol Use: No Hx Substance Use: Yes Last Used Substance: Unknown Preferred Language: German Communication Ability: Effective Visual Impairment: No Limitations Hearing Ability: 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 Mood and affect appeared normal. He answered all questions appropriately however, he provided few details and took a long time to answer questions. HEENT: Pupils are equal and reactive to light and accommodation. Extraocular movements are intact. The sclerae are anicteric. Neuro: Cranial nerves intact Lungs: Clear to auscultation bilaterally. He has good air movement without use of accessory muscles. No rales wheezes or rhonchi. Cardiac: Heart demonstrates an irregular rhythm with normal rate. Normal S1 and S2. No murmurs on examination. Pulses: The patient has palpable radial pulses bilaterally that are equal in intensity Extremities: There was no evidence of hypoperfusion. There is no cyanosis or clubbing. Moderate lower extremity edema bilaterally. Some trophic changes involving both lower extremities. He seems to have a swollen erythematous 3rd metacarpal joint on the right hand Skin: Erythematous lesion on the left anterior tibia. Results & Data Vital Signs (Past 12 Hours) Vital Signs Temp Pulse Resp BP Pulse Ox O2 Del Method 04/22/23 10:58 36.8 C 85 18 98/59 L 91 Room Air 04/22/23 08:00 Room Air 04/22/23 07:20 36.7 C 73 18 116/63 94 Room Air 04/22/23 03:08 36.6 C 93 H 16 100/55 L 92 Room Air Laboratory Results Abnormal Lab Results 04/21/23 04/21/23 04/21/23 15:25 16:32 17:52 WBC 13.50 H RBC 4.26 L Hgb 14.3 Hct 42.8 MCV 100.5 H MCH 33.6 MCHC 33.4 RDW Std Deviation 51.5 H RDW Coeff of Sonja 14.1 Plt Count 274 MPV 10.7 Immature Gran % (Auto) 0.7 Neut % (Auto) 78.5 Lymph % (Auto) 8.4 [place] % (Auto) 11.9 Eos % (Auto) 0.1 Baso % (Auto) 0.4 Neut # (Auto) 10.59 H Lymph # (Auto) 1.13 L [place] # (Auto) 1.61 H Eos # (Auto) 0.02 Baso # (Auto) 0.06 Immature Gran # (Auto) 0.09 Sodium 137 Potassium 3.8 Chloride 100 Carbon Dioxide 26 Anion Gap 11 BUN 32 H Creatinine 1.94 H Est Cr Clr Drug Dosing 39.4 Est GFR ( Amer) 38.7 Est GFR (Non-Af Amer) 33.4 BUN/Creatinine Ratio 16.5 Glucose 106 H POC Glucose Calcium 9.6 Magnesium 2.0 Total Bilirubin 2.7 H AST 27 ALT 9 Alkaline Phosphatase 46 Total Creatine Kinase 1164 H Troponin I High Sens 81.5 H* B-Natriuretic Peptide 949 H Total Protein 7.5 Albumin 4.1 Globulin 3.4 Albumin/Globulin Ratio 1.2 TSH 2.012 Urine Color Yellow Urine Appearance Clear Urine pH 5.5 Ur Specific [place] 1.008 Urine Protein Negative Urine Glucose (UA) Negative Urine Ketones Negative Urine Blood 1+ H Urine Nitrite Negative Urine Bilirubin Negative Urine Urobilinogen Negative Ur Leukocyte Esterase Negative Urine WBC (Auto) 1-5 Urine RBC (Auto) 0-4 U Hyaline Cast (Auto) 1-5 U Epithel Cells (Auto) 5-10 H Urine Bacteria (Auto) Negative Digoxin Adenovirus (PCR) Not Detected B. pertussis DNA (PCR) Not Detected B.parapertussis DNA PCR Not Detected C. pneumoniae DNA (PCR) Not Detected Coronavirus OC43 (PCR) Not Detected Coronavirus HKU1 (PCR) Not Detected Coronavirus 229E (PCR) Not Detected SARS-CoV-2 (PCR) Not Detected Coronavirus NL63 (PCR) Not Detected Human Metapneumovir PCR Not Detected Influenza Type A (PCR) Not Detected Influenza Type B (PCR) Not Detected M. pneumoniae (PCR) Not Detected Parainfluenza 1 (PCR) Not Detected Parainfluenza 2 (PCR) Not Detected Parainfluenza 3 (PCR) Not Detected Parainfluenza 4 (PCR) Not Detected RSV (PCR) Not Detected Entero/Rhino (PCR) Not Detected 04/21/23 04/21/23 04/22/23 18:06 21:07 07:17 WBC 11.70 H RBC 3.84 L Hgb 12.9 L Hct 37.9 L MCV 98.7 MCH 33.6 MCHC 34.0 RDW Std Deviation 49.2 H RDW Coeff of [place]ja 13.7 Plt Count 240 MPV 10.9 Immature Gran % (Auto) 0.4 Neut % (Auto) 78.4 Lymph % (Auto) 9.7 [place] % (Auto) 10.5 Eos % (Auto) 0.6 Baso % (Auto) 0.4 Neut # (Auto) 9.17 H Lymph # (Auto) 1.13 L [place] # (Auto) 1.23 H Eos # (Auto) 0.07 Baso # (Auto) 0.05 Immature Gran # (Auto) 0.05 Sodium 139 Potassium 3.3 L Chloride 101 Carbon Dioxide 30 Anion Gap 8 BUN 36 H Creatinine 1.92 H Est Cr Clr Drug Dosing 38.8 Est GFR ( Amer) 39.2 Est GFR (Non-Af Amer) 33.8 BUN/Creatinine Ratio 18.8 Glucose 102 H POC Glucose 117 H Calcium 8.7 Magnesium 1.9 Total Bilirubin 2.5 H AST 21 ALT 8 Alkaline Phosphatase 39 Total Creatine Kinase 727 H Troponin I High Sens 96.9 H* D B-Natriuretic Peptide Total Protein 6.3 Albumin 3.4 Globulin 2.9 Albumin/Globulin Ratio 1.2 TSH Urine Color Urine Appearance Urine pH Ur Specific [place] Urine Protein Urine Glucose (UA) Urine Ketones Urine Blood Urine Nitrite Urine Bilirubin Urine Urobilinogen Ur Leukocyte Esterase Urine WBC (Auto) Urine RBC (Auto) U Hyaline Cast (Auto) U Epithel Cells (Auto) Urine Bacteria (Auto) Digoxin 0.4 L Adenovirus (PCR) B. pertussis DNA (PCR) B.parapertussis DNA PCR C. pneumoniae DNA (PCR) Coronavirus OC43 (PCR) Coronavirus HKU1 (PCR) Coronavirus 229E (PCR) SARS-CoV-2 (PCR) Coronavirus NL63 (PCR) Human Metapneumovir PCR Influenza Type A (PCR) Influenza Type B (PCR) M. pneumoniae (PCR) Parainfluenza 1 (PCR) Parainfluenza 2 (PCR) Parainfluenza 3 (PCR) Parainfluenza 4 (PCR) RSV (PCR) Entero/Rhino (PCR) 04/22/23 04/22/23 07:20 11:25 WBC RBC Hgb Hct MCV MCH MCHC RDW Std Deviation RDW Coeff of [place] Plt Count MPV Immature Gran % (Auto) Neut % (Auto) Lymph % (Auto) [place] % (Auto) Eos % (Auto) Baso % (Auto) Neut # (Auto) Lymph # (Auto) [place] # (Auto) Eos # (Auto) Baso # (Auto) Immature Gran # (Auto) Sodium Potassium Chloride Carbon Dioxide Anion Gap BUN Creatinine Est Cr Clr Drug Dosing Est GFR ( Amer) Est GFR (Non-Af Amer) BUN/Creatinine Ratio Glucose POC Glucose 103 H 120 H Calcium Magnesium Total Bilirubin AST ALT Alkaline Phosphatase Total Creatine Kinase Troponin I High Sens B-Natriuretic Peptide Total Protein Albumin Globulin Albumin/Globulin Ratio TSH Urine Color Urine Appearance Urine pH Ur Specific [place] Urine Protein Urine Glucose (UA) Urine Ketones Urine Blood Urine Nitrite Urine Bilirubin Urine Urobilinogen Ur Leukocyte Esterase Urine WBC (Auto) Urine RBC (Auto) U Hyaline Cast (Auto) U Epithel Cells (Auto) Urine Bacteria (Auto) Digoxin Adenovirus (PCR) B. pertussis DNA (PCR) B.parapertussis DNA PCR C. pneumoniae DNA (PCR) Coronavirus OC43 (PCR) Coronavirus HKU1 (PCR) Coronavirus 229E (PCR) SARS-CoV-2 (PCR) Coronavirus NL63 (PCR) Human Metapneumovir PCR Influenza Type A (PCR) Influenza Type B (PCR) M. pneumoniae (PCR) Parainfluenza 1 (PCR) Parainfluenza 2 (PCR) Parainfluenza 3 (PCR) Parainfluenza 4 (PCR) RSV (PCR) Entero/Rhino (PCR) Diagnostic Findings 04/09/2023: Moderately reduced LV systolic function with ejection fraction of 30 35%. Mild left ventricular dilation. Mildly reduced right ventricular systolic function. Echocardiogram 12/09/2022: Severely reduced LV systolic function with ejection fraction 20 25%. Mild mitral regurgitation. Admission revealed cardiomegaly with pulmonary vascular congestion. ECG Additional Comments: EKG the time admission revealed atrial fibrillation rapid ventricular response with nonspecific ST and T-wave changes in some aberrant conduction. PG Care Time/CCT Total # of Minutes Spent Total Time Spent with Patient: Total time spent is greater than 50% in coordination of care (as documented) at patient's floor/unit and/or counseling patient: Coding Level of Care Code 71758 INT INP/OBS CARE 3/75MIN Diagnoses Chronic systolic CHF (congestive heart failure) I50.22 Elevated troponin R79.89 Ischemic cardiomyopathy I25.5 Permanent atrial fibrillation I48.21 Atrial fibrillation type: permanent Nonrheumatic mitral valve regurgitation I34.0 Cardiac valve disease etiology: nonrheumatic (4) Atrial fibrillation Atrial fibrillation type: permanent Qualified Code(s): I48.21 - Permanent atrial fibrillation (5) Mitral regurgitation Cardiac valve disease etiology: nonrheumatic Qualified Code(s): I34.0 - Nonrheumatic mitral (valve) insufficiency
--- NOTE | 2023-04-22 15:55 | Hospitalist Progress Note ---
Date of Service April 22, 2023 Assessment & Plan (1) Cellulitis of left lower extremity: Plan: Left lower extremity cellulitis, portal of entry venous stasis ulcer left lateral ankle continue daptomycin IV and cefepime IV - remains severely inflamed and tender, no e/o abscess, not involving ankle joint Consult wound care, with patient's borderline blood pressure, he would likely benefit from Unna boots to help with wound healing and fluid management Venous Doppler negative for DVT left lower extremity (2) Chronic systolic CHF (congestive heart failure): Plan: Acute on chronic systolic heart failure (present on admission) -acute on chronic volume overload precipitated by not always taking his meds Consuted cardiology - discussed with Dr. Morejon Improved with lasix 60 IV last night and I re-dosed this AM Renal function remained unchanged after diuretics - Cr 1.94-->1.92 today Initial troponin 81.5, with follow-up 96.9, elevation related to myocardial strain from volume overload Metoprolol dose was reduced on admission, BP currently low side, resume usual dose tomorrow if he can tolerate Hold Entresto, spironolactone, and bumetanide - likely resume in AM Received furosemide 60 mg IV in the ED (3) Atrial fibrillation: Plan: contiue digoxin, metoprolol, and apixaban (4) CKD (chronic kidney disease) stage 3, GFR 30-59 ml/min: Plan: Cr last six months has ranged from 1.5-2.0 -currently 1.9, monitor with diuresis -AM BMP (5) Hand pain, right: Plan: Has acutely swollen and painful Rt 3rd MCP Also recently c/o L hand pain (not now) and L knee pain Cannot recall any trauma -XR R hand -check uric acid -potentially crystalline arthritis, trial prednisone 10 mg x 5 days (6) Elevated troponin: Plan: see above. (7) Bilateral lower extremity edema: Plan: Combination of right and left heart failure and venous stasis -elevation, diuretics -venous stasis ulcer left lateral ankle, present on admission (8) Acute pain of left lower extremity: Plan: L ankle skin pain due to cellulitis Recently had complained of L knee pain to his daughter (9) Generalized weakness: Plan: Generalized weakness and fatigue- [employer] testing negative Likely combination of left lower extremity cellulitis and fluid overload -daughter reports significant decrease in functional status since castro, not able to mobilize safely at home last few days -PT/OT evals ordered (10) BPH (benign prostatic hyperplasia): (11) Cardiomyopathy: (12) Ischemic cardiomyopathy: (13) Mild cognitive impairment: Plan: Vague historian and often forgets to take his meds despite his son and daughter calling every AM and every PM to remind. also has bubble pack meds family has been working on a remodel so he can move in with son, however, that would be a basement apartment requiring stairs (14) CAD (coronary artery disease): Plan: meds as above (15) Moderate obstructive sleep apnea: (16) Hypothyroidism: Plan CK mildly elevated at 1100 on admission, downtrended to 700 Hypokalemia K 3.3 due to diuretics, replaced po DVT ppx: on apixaban Dispo: lives home independently with family support, weaker than baseline, PT/OT pending I updated his daughter this afternoon by phone Admission and Anticipated Discharge Date Admission Date: April 21, 2023 Subjective Vague historian, able to tell me he is here because left leg hurts. Can't say when it started or when ulceration developed. Right not denies shortness of breath beyond usual baseline. No chest pain. Physical Exam Physical Exam: PHYSICAL EXAMINATION Last 24h vital signs reviewed, see documentation in flowsheet General: comfortable appearing, no distress HEENT: Normocephalic, atraumatic, pupils round and equal, sclerae anicteric, no conjunctival injection, moist mucus membranes Lungs: Normal respiratory effort. Clear to auscultation bilaterally anteriorly, mild crackles in both bases posteriorly. No RRW Heart: Regular rate and rhythm, no murmurs. No JVD Abdomen: Soft, nontender, nondistended. Bowel sounds present. Extremities: Warm, dry, well-perfused. 3+ extremity edema. Left ankle is more erythematous than the right, warm and indurated there is a shallow ulceration over the lateral left ankle without drainage Right ankle with chronic appearing erythema consistent with stasis dermatitis Neuro: Alert and oriented x self hospital basic situation, vague historian, face symmetric, moves 4 extremities well Psych: Normal affect and behavior Results & Data Results & Data Vital Signs (Past 12 Hours) Vital Signs Temp Pulse Resp BP Pulse Ox O2 Del Method 04/22/23 15:45 37.0 C 89 17 117/56 L 96 Room Air 12/28/23 10:58 36.8 C 85 18 98/59 L 91 Room Air 04/22/23 08:00 Room Air 04/22/23 07:20 36.7 C 73 18 116/63 94 Room Air PG Care Time/CCT Total # of Minutes Spent Total Time Spent with Patient: I personally spent: Greater than 50 minutes today on clinical care activities including: reviewing chart notes and vital signs reviewing labs reviewing studies discussion with densitometrist examining and counseling the patient counseling and update the patient's family writing orders documentation Coding Level of Care Code 46410 SUB INP/OBS CARE 350MIN Diagnoses Cellulitis of left lower extremity L03.116 Chronic systolic CHF (congestive heart failure) I50.22 Permanent atrial fibrillation I48.21 Atrial fibrillation type: permanent CKD (chronic kidney disease) stage 3, GFR 30-59 ml/min N18.30 Hand pain, right M79.641 Elevated troponin R79.89 Bilateral lower extremity edema R60.0 Acute pain of left lower extremity M79.605 Generalized weakness R53.1 BPH (benign prostatic hyperplasia) N40.0 Cardiomyopathy I42.9 Ischemic cardiomyopathy I25.5 Mild cognitive impairment G31.84 Coronary artery disease of [place] artery of [place] heart with stable angina pectoris I25.118 Associated angina: with stable angina Coronary Disease-Associated Artery/Lesion type: [place] artery [place] vs. transplanted heart: [place] heart Moderate obstructive sleep apnea G47.33 Hypothyroidism E03.9 (3) Atrial fibrillation Atrial fibrillation type: permanent Qualified Code(s): I48.21 - Permanent atrial fibrillation (14) CAD (coronary artery disease) Associated angina: with stable angina Coronary Disease-Associated Artery/Lesion type: [place] artery [place] vs. transplanted heart: [place] heart Qualified Code(s): I25.118 - Atherosclerotic heart disease of [place] coronary artery with other forms of angina pectoris
[2023-04-22] MEDS ORDERED: DIGOXIN 0.125 MG/2.5 ML UDP PO SCH (16:00)
--- NOTE | 2023-04-22 16:36 | XRay Report ---
XR hand RT 2V CLINICAL HISTORY: R 3rd MCP joint swelling and pain COMPARISON: None FINDINGS: Alignment of the right hand is anatomic. No acute fracture. Carpal bones are intact. Dista l right radius and ulna are intact. There is mild osteoarthritis of multiple articulations of the rig ht hand and wrist, including the right third metacarpophalangeal joint. IMPRESSION: 1. No acute fractures within the right hand. 2. Mild osteoarthritis within multiple articulations of the right hand and wrist, including the right third metacarpophalangeal joint. ACT 112: Negative or not required by law. Electronically signed by: Juan Manrique M.D. 04/22/2023 4:34 PM
[2023-04-22] MEDS: predniSONE 10 MG TABLET PO SCH (17:20)
[2023-04-22] MEDS: DIGOXIN 0.125 MG TAB PO SCH (17:21)
[2023-04-22] MEDS: DAPTOmycin 325 MG in SYRINGE 0 ML IV SCH (20:27)
[2023-04-23] MEDS: LEVOTHYROXINE SODIUM 75 MCG TABLET PO SCH (05:54)
[2023-04-23 07:11] LABS: Basophils # (auto) 0.04 K/uL (0.00-0.20); Basophils % (auto) 0.3 %; Eosinophils # (auto) 0.03 K/uL (0.00-0.50); Eosinophils % (auto) 0.2 %; Hemoglobin 14.7 g/dl (14.0-18.0); Immature Granulocytes # (auto) 0.07 K/uL (0.01-0.20); Immature Granulocytes % (auto) 0.5 %; Lymphocytes # (auto) 0.85 K/uL (1.20-3.40); Lymphocytes % (auto) 6.7 %; Mean Corpuscular Hemoglobin 33.9 pg (25.0-34.0); Mean Corpuscular Volume 96.8 fL (80.0-100.0); Mean Platelet Volume 10.9 fL (9.4-12.4); Monocytes # (auto) 1.37 K/uL (0.11-0.59); Monocytes % (auto) 10.7 %; Neutrophils # (auto) 10.42 K/uL (1.40-6.50); Neutrophils % (auto) 81.6 %; Platelet Count 313 K/uL (130-400); RDW Coefficient of Variation 13.7 % (11.5-14.5); RDW Standard Deviation 48.5 fL (36.4-46.3); Red Blood Count 4.34 M/uL (4.70-6.10); White Blood Count 12.78 K/ul (4.8-10.8)
[2023-04-23 07:27] LABS: Albumin Level 3.6 gm/dl (3.4-5.0); BUN Creatinine Ratio 19.3 (10-20); Bilirubin,Total 2.2 mg/dl (0.2-1.0); Calcium 9.2 mg/dl (8.6-10.3); Creatinine Clr Calc Pharmacy 37.9 ml/min; Est GFR (Non-African American) 32.7 ml/min; Globulin 3.5 gm/dl (2.5-4.0); Magnesium 2.1 mg/dl (1.7-2.4); Potassium 3.4 mmol/L (3.5-5.1); Total Protein 7.1 gm/dl (6.0-8.3)
[2023-04-23] MEDS: METOPROLOL SUCC 50MG EXT REL TAB PO SCH ×2 (07:43→20:48)
[2023-04-23] MEDS: CEFEPIME 2,000 MG in SYRINGE 0 ML IV SCH (07:43)
[2023-04-23] MEDS: TICAGRELOR 90 MG TAB PO SCH ×2 (07:43→20:48)
[2023-04-23] MEDS: APIXABAN 5 MG TABLET PO SCH ×2 (07:44→20:48)
[2023-04-23] MEDS: predniSONE 10 MG TABLET PO SCH (07:44)
[2023-04-23] MEDS: EMPAGLIFLOZIN 10 MG TAB PO SCH (07:44)
[2023-04-23] MEDS: modafiniL 100 MG TAB PO SCH (07:46)
[2023-04-23] MEDS: INSULIN ASPART PER UNIT CHARGE SC SCH ×4 (07:49→20:39)
[2023-04-23] MEDS ORDERED: BUMETANIDE 1 MG TAB PO ONE (10:02)
[2023-04-23] MEDS ORDERED: POTASSIUM CHLORIDE CRTAB 20 MEQ TABCR PO STA ×2 (10:02→12:57)
--- NOTE | 2023-04-23 10:09 | Cardiology Progress Note ---
Date of Service April 23, 2023 Assessment & Plan (1) Chronic systolic CHF (congestive heart failure): (2) Elevated troponin: (3) Ischemic cardiomyopathy: (4) Atrial fibrillation: (5) Mitral regurgitation: Plan 1. decompensated heart failure with reduced ejection fraction: He seems well compensated currently. A lot of his trouble over the last several months has been related to poor compliance with medical therapy. I would agree with the hospitalist assessment that he likely has not been taking some of his medications. At this point would seem reasonable return him to his usual diuretic regimen of bumetanide 3 mg every morning. Monitor his renal function electrolytes closely. 2. Elevated troponin: In the setting of decompensated heart failure. Not associated with an acute coronary event. I do not think this requires any additional ischemic evaluation. 3. Ischemic cardiomyopathy: Longstanding. On an aggressive outpatient medical regimen to include metoprolol succinate, Entresto, spironolactone and Jardiance. His blood pressure seems better overall. I think we will start spironolactone again tomorrow morning. We can start his Entresto at a slightly lower dose this evening. 4. Coronary disease: No current symptoms suggestive of coronary insufficiency or angina. 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 He will continue aggressive secondary prevention with high- dose atorvastatin, apixaban and ticagrelor 5. Mitral regurgitation: Mild. 6. Atrial fibrillation: Mildly elevated rates. Will continue his current medical regimen and see what his heart rates do when he is more ambulatory. C ontinue systemic anticoagulation. 7. Lower extremity edema: Likely combination of venous insufficiency, mild right ventricular systolic failure, his known cardiomyopathy and possibly infection. 8. Cellulitis: Currently on antibiotic therapy. Admission and Anticipated Discharge Date Admission Date: April 21, 2023 Subjective This morning the patient claimed he feeling well. He continues to have some left lower extremity discomfort. However, this appears to be fairly mild. He has not been out of bed. No breathing difficulty. No orthopnea. No chest pain. No sense of palpitation. Review of Systems Review of Systems: Some discomfort involving the 3rd metacarpal joint on the right hand Physical Exam Physical Exam: The patient is alert and oriented. Mood and affect appeared normal. He answered all questions appropriately however, he provided few details and took a long time to answer questions. HEENT: Pupils are equal and reactive to light and accommodation. Extraocular movements are intact. The sclerae are anicteric. Neuro: Cranial nerves intact Lungs: Clear to auscultation bilaterally. He has good air movement without use of accessory muscles. No rales wheezes or rhonchi. Cardiac: Heart demonstrates an irregular rhythm with normal rate. Normal S1 and S2. No murmurs on examination. Pulses: The patient has palpable radial pulses bilaterally that are equal in intensity Extremities: There was no evidence of hypoperfusion. There is no cyanosis or clubbing. Moderate lower extremity edema bilaterally. Some trophic changes involving both lower extremities. He seems to have a swollen erythematous 3rd metacarpal joint on the right hand Skin: Erythematous lesion on the left anterior tibia. Results & Data Vital Signs (Past 12 Hours) Vital Signs Temp Pulse Pulse Resp BP Pulse Ox O2 Del Method 04/23/23 08:00 Room Air 04/23/23 07:18 36.6 C 96 H 16 121/68 95 Room Air 04/23/23 07:00 90 04/23/23 03:06 36.5 C 95 H 18 113/85 94 Room Air 04/22/23 23:00 104 H 04/22/23 22:24 36.7 C 85 16 113/74 94 Room Air Laboratory Results Abnormal Lab Results 04/22/23 04/22/23 04/22/23 07:17 11:25 16:26 WBC RBC Hgb Hct MCV MCH MCHC RDW Std Deviation RDW Coeff of Sonja Plt Count MPV Immature Gran % (Auto) Neut % (Auto) Lymph % (Auto) Stanley % (Auto) Eos % (Auto) Baso % (Auto) Neut # (Auto) Lymph # (Auto) Stanley # (Auto) Eos # (Auto) Baso # (Auto) Immature Gran # (Auto) Sodium Potassium Chloride Carbon Dioxide Anion Gap BUN Creatinine Est Cr Clr Drug Dosing Est GFR ( Amer) Est GFR (Non-Af Amer) BUN/Creatinine Ratio Glucose POC Glucose 120 H 100 H Estimat Average Glucose 105 Hemoglobin A1c 5.3 Uric Acid Calcium Magnesium Total Bilirubin AST ALT Alkaline Phosphatase Total Protein Albumin Globulin Albumin/Globulin Ratio 04/22/23 04/23/23 04/23/23 20:10 06:42 07:23 WBC 12.78 H RBC 4.34 L Hgb 14.7 Hct 42.0 MCV 96.8 MCH 33.9 MCHC 35.0 RDW Std Deviation 48.5 H RDW Coeff of Sonja 13.7 Plt Count 313 MPV 10.9 Immature Gran % (Auto) 0.5 Neut % (Auto) 81.6 Lymph % (Auto) 6.7 Stanley % (Auto) 10.7 Eos % (Auto) 0.2 Baso % (Auto) 0.3 Neut # (Auto) 10.42 H Lymph # (Auto) 0.85 L Stanley # (Auto) 1.37 H Eos # (Auto) 0.03 Baso # (Auto) 0.04 Immature Gran # (Auto) 0.07 Sodium 138 Potassium 3.4 L Chloride 99 Carbon Dioxide 26 Anion Gap 13 H BUN 38 H Creatinine 1.97 H Est Cr Clr Drug Dosing 37.9 Est GFR ( Amer) 38.0 Est GFR (Non-Af Amer) 32.7 BUN/Creatinine Ratio 19.3 Glucose 108 H POC Glucose 134 H 114 H Estimat Average Glucose Hemoglobin A1c Uric Acid 14.0 H Calcium 9.2 Magnesium 2.1 Total Bilirubin 2.2 H AST 34 ALT 11 Alkaline Phosphatase 49 Total Protein 7.1 Albumin 3.6 Globulin 3.5 Albumin/Globulin Ratio 1.0 PG Care Time/CCT Total # of Minutes Spent Total Time Spent with Patient: Total time spent is greater than 50% in coordination of care (as documented) at patient's floor/unit and/or counseling patient: Coding Level of Care Code 88178 SUB INP/OBS CARE 235MIN Diagnoses Chronic systolic CHF (congestive heart failure) I50.22 Elevated troponin R79.89 Ischemic cardiomyopathy I25.5 Permanent atrial fibrillation I48.21 Atrial fibrillation type: permanent Nonrheumatic mitral valve regurgitation I34.0 Cardiac valve disease etiology: nonrheumatic (4) Atrial fibrillation Atrial fibrillation type: permanent Qualified Code(s): I48.21 - Permanent atrial fibrillation (5) Mitral regurgitation Cardiac valve disease etiology: nonrheumatic Qualified Code(s): I34.0 - Nonrheumatic mitral (valve) insufficiency
[2023-04-23] MEDS ORDERED: POTASSIUM CHLORIDE CRTAB 20 MEQ TABCR PO ONE (14:00)
[2023-04-23] MEDS: DIGOXIN 0.125 MG TAB PO SCH (16:36)
--- NOTE | 2023-04-23 17:58 | Hospitalist Progress Note ---
Date of Service April 23, 2023 Assessment & Plan (1) Cellulitis of left lower extremity: Plan: Left lower extremity cellulitis, portal of entry venous stasis ulcer left lateral ankle Treated with daptomycin IV and cefepime IV - significant improvement 04/23 will change to oral Keflex Consult wound care, edema has massively improved with diuresis Venous Doppler negative for DVT left lower extremity (2) Chronic systolic CHF (congestive heart failure): Plan: Acute on chronic systolic heart failure (present on admission) -acute on chronic volume overload precipitated by not always taking his meds Consuted cardiology - discussed with Dr. Morejon 04/23 treated with Lasix 60 mg IV x 2 doses, volume overload resolved Renal function remained unchanged after diuretics - Cr 1.94-->1.92--> 1.97 today Initial troponin 81.5, with follow-up 96.9, elevation related to myocardial strain from volume overload resumed metoprolol, Entresto, spironolactone, and bumetanide hypokalemic and potassium replaced by processing analyst today a.m. BMP ordered follow-up in cardiology clinic and heart failure clinic discussed heart failure management with the patient and his son at bedside today including stressing that is important he take all of his medications, maintain a reasonable fluid restriction, maintain a low-salt diet (3) Polyarticular gout: Plan: Has acutely swollen and painful Rt 3rd and 4th MCP, as well as left first MTP. Recently has also had L knee and L hand pain (none today) no trauma to R hand and Xray notable only for osteoarthitis of MCPs Uric acid 14 -continue po prednisone x 5d. might need dose increase but seems improved -start allopurinol after acute flare resolved (4) Atrial fibrillation: Plan: contiue digoxin, metoprolol, and apixaban (5) CKD (chronic kidney disease) stage 3, GFR 30-59 ml/min: Plan: Cr last six months has ranged from 1.5-2.0 - has remained stable at 1.9 -AM DANISH (6) Hand pain, right: (7) Elevated troponin: Plan: see above. (8) Bilateral lower extremity edema: Plan: Combination of right and left heart failure and venous stasis -elevation, diuretics -venous stasis ulcer left lateral ankle, present on admission (9) Acute pain of left lower extremity: Plan: L ankle skin pain due to cellulitis, also gout Recently had complained of L knee pain to his daughter (10) Generalized weakness: Plan: Generalized weakness and fatigue- BioFire testing negative Likely combination of left lower extremity cellulitis and fluid overload -daughter reports significant decrease in functional status since castro, not able to mobilize safely at home last few days -PT/OT evals ordered (11) BPH (benign prostatic hyperplasia): (12) Cardiomyopathy: (13) Ischemic cardiomyopathy: (14) Mild cognitive impairment: Plan: Vague historian and often forgets to take his meds despite his son and daughter calling every AM and every PM to remind. also has bubble pack meds family has been working on a remodel so he can move in with son, however, that would be a basement apartment requiring stairs (15) CAD (coronary artery disease): Plan: meds as above (16) Moderate obstructive sleep apnea: (17) Hypothyroidism: Plan CK mildly elevated at 1100 on admission, downtrended to 700 Hypokalemia K 3.3 due to diuretics, replaced po DVT ppx: on apixaban Dispo: lives home independently with family support, weaker than baseline, PT/OT pending I updated his daughter 04/22 by phone, son in room 04/23 Admission and Anticipated Discharge Date Admission Date: April 21, 2023 Subjective she was of is doing better. He denies any shortness of breath. He has had significant improvement in his left ankle pain really is not painful now. On close questioning he has had pain in the knuckles of his right hand both the third and fourth MCP for several days, I noticed that his left first MTP is inflamed and he says this is also painful he is not sure when that started. Physical Exam Physical Exam: PHYSICAL EXAMINATION Last 24h vital signs reviewed, see documentation in flowsheet General: comfortable appearing, no distress HEENT: Normocephalic, atraumatic, pupils round and equal, sclerae anicteric, no conjunctival injection, moist mucus membranes Lungs: Normal respiratory effort. CTAB. No RRW Heart: Regular rate and rhythm, no murmurs. No JVD, lying flat Abdomen: Soft, nontender, nondistended. Bowel sounds present. Extremities: Warm, dry, well-perfused. 1+ extremity edema, 1-2+ pedal. dramatic improvement in bilateral lower extremity edema Left ankle is more erythematous than the right, now only mildly warm and indurated there is a shallow ulceration over the lateral left ankle without drainage, significant improvement Right ankle with chronic appearing erythema consistent with stasis dermatitis right hand second and third MCP are warm and erythematous and tender. Left first MTP is warm and erythematous and tender Neuro: more awake today.Alert and oriented x self hospital basic situation, vague historian, face symmetric, moves 4 extremities well Psych: Normal affect and behavior Results & Data Results & Data Vital Signs (Past 12 Hours) Vital Signs Temp Pulse Pulse Resp BP Pulse Ox O2 Del Method 04/23/23 16:36 115 H 04/23/23 15:00 115 H 04/23/23 14:56 36.7 C 88 19 107/67 97 Room Air 04/23/23 10:55 36.7 C 94 H 19 110/70 96 Room Air 04/23/23 08:00 Room Air 04/23/23 07:18 36.6 C 96 H 16 121/68 95 Room Air 04/23/23 07:00 90 PG Care Time/CCT Total # of Minutes Spent Total Time Spent with Patient: Total time spent is greater than 50% in coordination of care (as documented) at patient's floor/unit and/or counseling patient: Coding Level of Care Code 17472 SUB INP/OBS CARE 2/35MIN Diagnoses Cellulitis of left lower extremity L03.116 Chronic systolic CHF (congestive heart failure) I50.22 Polyarticular gout M10.9 Permanent atrial fibrillation I48.21 Atrial fibrillation type: permanent CKD (chronic kidney disease) stage 3, GFR 30-59 ml/min N18.30 Hand pain, right M79.641 Elevated troponin R79.89 Bilateral lower extremity edema R60.0 Acute pain of left lower extremity M79.605 Generalized weakness R53.1 BPH (benign prostatic hyperplasia) N40.0 Cardiomyopathy I42.9 Ischemic cardiomyopathy I25.5 Mild cognitive impairment G31.84 Coronary artery disease of [place] artery of [place] heart with stable angina pectoris I25.118 Coronary Disease-Associated Artery/Lesion type: [place] artery [place] vs. transplanted heart: [place] heart Associated angina: with stable angina Moderate obstructive sleep apnea G47.33 Hypothyroidism E03.9 (4) Atrial fibrillation Atrial fibrillation type: permanent Qualified Code(s): I48.21 - Permanent atrial fibrillation (15) CAD (coronary artery disease) Coronary Disease-Associated Artery/Lesion type: [place] artery [place] vs. transplanted heart: [place] heart Associated angina: with stable angina Qualified Code(s): I25.118 - Atherosclerotic heart disease of [place] coronary artery with other forms of angina pectoris
[2023-04-23] MEDS: VALSARTAN/SACUBITRIL 26/24MG TAB PO SCH (20:48)
[2023-04-23] MEDS: cephALEXin 500 MG CAP PO SCH (20:48)
[2023-04-24] MEDS: LEVOTHYROXINE SODIUM 75 MCG TABLET PO SCH (05:27)
[2023-04-24 05:49] LABS: Basophils # (auto) 0.07 K/uL (0.00-0.20); Basophils % (auto) 0.6 %; Eosinophils # (auto) 0.12 K/uL (0.00-0.50); Hematocrit (blood only) 45.9 % (42.0-52.0); Hemoglobin 15.6 g/dl (14.0-18.0); Immature Granulocytes % (auto) 0.8 %; Lymphocytes # (auto) 1.13 K/uL (1.20-3.40); Lymphocytes % (auto) 9.4 %; Mean Corpuscular Hemoglobin 33.3 pg (25.0-34.0); Mean Corpuscular Volume 98.1 fL (80.0-100.0); Mean Platelet Volume 10.6 fL (9.4-12.4); Monocytes # (auto) 1.27 K/uL (0.11-0.59); Monocytes % (auto) 10.6 %; Neutrophils # (auto) 9.34 K/uL (1.40-6.50); Neutrophils % (auto) 77.6 %; Platelet Count 357 K/uL (130-400); RDW Coefficient of Variation 13.5 % (11.5-14.5); RDW Standard Deviation 48.4 fL (36.4-46.3); Red Blood Count 4.68 M/uL (4.70-6.10); White Blood Count 12.03 K/ul (4.8-10.8)
[2023-04-24 05:59] LABS: Albumin Globulin Ratio 0.9 (0.9-2); Albumin Level 3.5 gm/dl (3.4-5.0); BUN Creatinine Ratio 21.9 (10-20); Bilirubin,Total 1.4 mg/dl (0.2-1.0); Calcium 9.3 mg/dl (8.6-10.3); Creatinine Clr Calc Pharmacy 39.9 ml/min; Est GFR (African American) 40.4 ml/min; Est GFR (Non-African American) 34.9 ml/min; Globulin 3.8 gm/dl (2.5-4.0); Magnesium 2.3 mg/dl (1.7-2.4); Potassium 3.8 mmol/L (3.5-5.1); Total Protein 7.3 gm/dl (6.0-8.3)
[2023-04-24] MEDS: predniSONE 10 MG TABLET PO SCH (08:19)
[2023-04-24] MEDS: INSULIN ASPART PER UNIT CHARGE SC SCH ×4 (08:19→21:26)
[2023-04-24] MEDS: SPIRONOLACTONE 25 MG TAB PO SCH (08:19)
[2023-04-24] MEDS: EMPAGLIFLOZIN 10 MG TAB PO SCH (08:19)
[2023-04-24] MEDS: VALSARTAN/SACUBITRIL 26/24MG TAB PO SCH ×2 (08:20→21:12)
[2023-04-24] MEDS: cephALEXin 500 MG CAP PO SCH ×4 (08:20→21:12)
[2023-04-24] MEDS: TICAGRELOR 90 MG TAB PO SCH ×2 (08:20→21:12)
[2023-04-24] MEDS: APIXABAN 5 MG TABLET PO SCH ×2 (08:20→21:12)
[2023-04-24] MEDS: METOPROLOL SUCC 50MG EXT REL TAB PO SCH ×2 (08:20→21:45)
[2023-04-24] MEDS: modafiniL 100 MG TAB PO SCH (08:22)
[2023-04-24] MEDS: DIGOXIN 0.125 MG TAB PO SCH (16:36)
--- NOTE | 2023-04-24 17:29 | Hospitalist Progress Note ---
Date of Service April 24, 2023 Assessment & Plan (1) Cellulitis of left lower extremity: Plan: Left lower extremity cellulitis, portal of entry venous stasis ulcer left lateral ankle Venous Doppler negative for DVT left lower extremity Treated with daptomycin IV and cefepime IV - significant improvement 04/23 changed to oral Keflex Consult wound care, edema has massively improved with diuresis -resolving (2) Chronic systolic CHF (congestive heart failure): Plan: Acute on chronic systolic heart failure (present on admission) -acute on chronic volume overload precipitated by not always taking his meds Consuted cardiology - discussed with Dr. Morejon 04/23 treated with Lasix 60 mg IV x 2 doses, volume overload resolved Renal function remained unchanged after diuretics - Cr 1.94-->1.92--> 1.97 --> 1.87 Initial troponin 81.5, with follow-up 96.9, elevation related to myocardial strain from volume overload resumed metoprolol, Entresto, spironolactone, bumetanide held today, mildly tachycardic and may be mildly hypovolemic - resume in AM perhaps 2 mg hypokalemic and potassium replaced, now normal a.m. BMP ordered follow-up in cardiology clinic and heart failure clinic discussed heart failure management with the patient and his son at bedside 04/23 including stressing that is important he take all of his medications, maintain a reasonable fluid restriction, maintain a low-salt diet (3) Polyarticular gout: Plan: Has acutely swollen and painful Rt 3rd and 4th MCP, as well as left first MTP. Recently has also had L knee and L hand pain (none today) no trauma to R hand and Xray notable only for osteoarthitis of MCPs Uric acid 14 -continue po prednisone x 5d. improved -start allopurinol after acute flare resolved (4) Atrial fibrillation: Plan: contiue digoxin, metoprolol, and apixaban (5) CKD (chronic kidney disease) stage 3, GFR 30-59 ml/min: Plan: Cr last six months has ranged from 1.5-2.0 - has remained stable/improved -AM BMP (6) Hand pain, right: (7) Elevated troponin: Plan: see above. (8) Bilateral lower extremity edema: Plan: Combination of right and left heart failure and venous stasis -elevation, diuretics -venous stasis ulcer left lateral ankle, present on admission (9) Acute pain of left lower extremity: Plan: L ankle skin pain due to cellulitis, also gout Recently had complained of L knee pain to his daughter (10) Generalized weakness: Plan: Generalized weakness and fatigue- BioFire testing negative Likely combination of left lower extremity cellulitis and fluid overload -daughter reports significant decrease in functional status since castro, not able to mobilize safely at home last few days -PT/OT evals rec rehab (11) BPH (benign prostatic hyperplasia): (12) Cardiomyopathy: (13) Ischemic cardiomyopathy: (14) Mild cognitive impairment: Plan: Vague historian and often forgets to take his meds despite his son and daughter calling every AM and every PM to remind. also has bubble pack meds family has been working on a remodel so he can move in with son, however, that would be a basement apartment requiring stairs (15) CAD (coronary artery disease): Plan: meds as above (16) Moderate obstructive sleep apnea: Plan: intolerant of CPAP (17) Hypothyroidism: Plan CK mildly elevated at 1100 on admission, downtrended to 700 Mild hematuria likely dillon trauma with DOAC, not clotting, pink tinged. Remove dillon once hematuria cleared DVT ppx: on apixaban Dispo: lives home independently with family support, weaker than baseline, PT/OT rec rehab I updated his daughter 04/22 by phone, son in room 04/23 Admission and Anticipated Discharge Date Admission Date: April 21, 2023 Subjective doing better, no dyspnea, up to EOB with PT, no leg swelling, pink urine in dillon, mild tachycardia today. L 1st MTP better, R knuckles filtering machine tender less swollen Physical Exam 2 Physical Exam: PHYSICAL EXAMINATION Last 24h vital signs reviewed, see documentation in flowsheet General: sitting EOB HEENT: Normocephalic, atraumatic, pupils round and equal, sclerae anicteric, no conjunctival injection, moist mucus membranes Lungs: Normal respiratory effort. CTAB ant and post Heart: Regular rate and rhythm, no murmurs. No JVD sitting up Abdomen: Soft, nondistended. Bowel sounds present. Extremities: Warm, dry, well-perfused. 1+ extremity edema, 1+ pedal. much improved left ankle acute erythema resolved, warmth resolved. bilateral chronic venous stasis erythema and dermatitis. Ulcer L lateral ankle dressed right hand second and third MCP are warm and erythematous and tender but much less so. Left first MTP is no longer warm, erythematous and tender but much less so Neuro: more awake today.Alert and oriented x self hospital basic situation, vague historian, face symmetric, moves 4 extremities well Psych: Normal affect and behavior Results & Data Results & Data Vital Signs (Past 12 Hours) Vital Signs Temp Pulse Pulse Resp BP Pulse Ox O2 Del Method 04/24/23 16:36 94 H 04/24/23 15:45 94 H 04/24/23 14:20 36.6 C 99 H 20 109/64 96 Room Air 04/24/23 12:15 36.6 C 102 H 17 111/75 90 Room Air 04/24/23 08:45 36.7 C 104 H 18 124/91 95 Room Air 04/24/23 08:00 Room Air 04/24/23 07:27 91 H Laboratory Results 04/24/23 05:13 04/24/23 05:13 PG Care Time/CCT Total # of Minutes Spent Total Time Spent with Patient: Total time spent is greater than 50% in coordination of care (as documented) at patient's floor/unit and/or counseling patient: Coding Level of Care Code 56576 SUB INP/OBS CARE 235MIN Diagnoses Cellulitis of left lower extremity L03.116 Chronic systolic CHF (congestive heart failure) I50.22 Polyarticular gout M10.9 Permanent atrial fibrillation I48.21 Atrial fibrillation type: permanent CKD (chronic kidney disease) stage 3, GFR 30-59 ml/min N18.30 Hand pain, right M79.641 Elevated troponin R79.89 Bilateral lower extremity edema R60.0 Acute pain of left lower extremity M79.605 Generalized weakness R53.1 BPH (benign prostatic hyperplasia) N40.0 Cardiomyopathy I42.9 Ischemic cardiomyopathy I25.5 Mild cognitive impairment G31.84 Coronary artery disease of [place] artery of [place] heart with stable angina pectoris I25.118 Coronary Disease-Associated Artery/Lesion type: [place] artery [place] vs. transplanted heart: [place] heart Associated angina: with stable angina Moderate obstructive sleep apnea G47.33 Hypothyroidism E03.9 (4) Atrial fibrillation Atrial fibrillation type: permanent Qualified Code(s): I48.21 - Permanent atrial fibrillation (15) CAD (coronary artery disease) Coronary Disease-Associated Artery/Lesion type: [place] artery [place] vs. transplanted heart: [place] heart Associated angina: with stable angina Qualified Code(s): I25.118 - Atherosclerotic heart disease of [place] coronary artery with other forms of angina pectoris
[2023-04-24] MEDS: ATORVASTATIN 40 MG TAB PO SCH (21:12)
[2023-04-25] MEDS: LEVOTHYROXINE SODIUM 75 MCG TABLET PO SCH (06:04)
[2023-04-25 07:31] LABS: BUN Creatinine Ratio 24.4 (10-20); Calcium 9.1 mg/dl (8.6-10.3); Creatinine Clr Calc Pharmacy 45.4 ml/min; Est GFR (African American) 47.4 ml/min; Est GFR (Non-African American) 40.9 ml/min; Potassium 3.9 mmol/L (3.5-5.1)
[2023-04-25] MEDS: INSULIN ASPART PER UNIT CHARGE SC SCH ×4 (08:47→21:18)
[2023-04-25] MEDS: VALSARTAN/SACUBITRIL 26/24MG TAB PO SCH ×2 (08:50→21:20)
[2023-04-25] MEDS: BUMETANIDE 1 MG TAB PO SCH (08:50)
[2023-04-25] MEDS: SPIRONOLACTONE 25 MG TAB PO SCH (08:50)
[2023-04-25] MEDS: APIXABAN 5 MG TABLET PO SCH ×2 (08:50→21:18)
[2023-04-25] MEDS: METOPROLOL SUCC 50MG EXT REL TAB PO SCH ×2 (08:50→21:17)
[2023-04-25] MEDS: predniSONE 10 MG TABLET PO SCH (08:50)
[2023-04-25] MEDS: EMPAGLIFLOZIN 10 MG TAB PO SCH (08:50)
[2023-04-25] MEDS: cephALEXin 500 MG CAP PO SCH ×4 (08:50→21:18)
[2023-04-25] MEDS: TICAGRELOR 90 MG TAB PO SCH ×2 (08:50→21:17)
[2023-04-25] MEDS: modafiniL 100 MG TAB PO SCH (08:56)
--- NOTE | 2023-04-25 14:25 | Hospitalist Progress Note ---
Date of Service April 25, 2023 Assessment & Plan (1) Cellulitis of left lower extremity: Plan: Left lower extremity cellulitis, portal of entry venous stasis ulcer left lateral ankle Venous Doppler negative for DVT left lower extremity Treated with daptomycin IV and cefepime IV - significant improvement 04/23 changed to oral Keflex, continues to improve though still some erythema and warmth posteriorly overlying the Achilles area Consult wound care, edema has massively improved with diuresis -resolving (2) Chronic systolic CHF (congestive heart failure): Plan: Acute on chronic systolic heart failure (present on admission) -acute on chronic volume overload precipitated by not always taking his meds Consuted cardiology - discussed with Dr. Morejon 04/23 treated with Lasix 60 mg IV x 2 doses, volume overload resolved Renal function remained unchanged after diuretics - Cr 1.9s --> 1.87--> 1.6 which is his recent baseline Initial troponin 81.5, with follow-up 96.9, elevation related to myocardial strain from volume overload resumed metoprolol, Entresto, spironolactone, bumetanide held 04/24 for tachycardia and possibly mildly hypovolemic, resumed 04/25 at 2 mg dose (home dose was 3 mg but did not take it consistently), assess response hypokalemic and potassium replaced, now normal follow-up in cardiology clinic and heart failure clinic Seems to be well compensated now that he is getting medications consistently discussed heart failure management with the patient and his son at bedside 04/23 including stressing that is important he take all of his medications, maintain a reasonable fluid restriction, maintain a low-salt diet (3) Polyarticular gout: Plan: Has acutely swollen and painful Rt 3rd and 4th MCP, as well as left first MTP. Recently has also had L knee and L hand pain (none today) no trauma to R hand and Xray notable only for osteoarthitis of MCPs Uric acid 14 -continue po prednisone x 5d. Continues to improve -start allopurinol after acute flare resolved (4) Atrial fibrillation: Plan: contiue digoxin, metoprolol, and apixaban -Rates have been mildly elevated but adequately controlled and asymptomatic (5) CKD (chronic kidney disease) stage 3, GFR 30-59 ml/min: Plan: Cr last six months has ranged from 1.5-2.0 -1.6 today (6) Hand pain, right: (7) Elevated troponin: Plan: see above. (8) Bilateral lower extremity edema: Plan: Combination of right and left heart failure and venous stasis -elevation, diuretics -venous stasis ulcer left lateral ankle, present on admission (9) Acute pain of left lower extremity: Plan: L ankle skin pain due to cellulitis, also gout Recently had complained of L knee pain to his daughter (10) Generalized weakness: Plan: Generalized weakness and fatigue- BioFire testing negative Likely combination of left lower extremity cellulitis and fluid overload -daughter reports significant decrease in functional status since castro, not able to mobilize safely at home last few days -PT/OT evals rec rehab (11) BPH (benign prostatic hyperplasia): (12) Cardiomyopathy: (13) Ischemic cardiomyopathy: (14) Mild cognitive impairment: Plan: Vague historian and often forgets to take his meds despite his son and daughter calling every AM and every PM to remind. also has bubble pack meds family has been working on a remodel so he can move in with son, however, that would be a basement apartment requiring stairs (15) CAD (coronary artery disease): Plan: meds as above (16) Moderate obstructive sleep apnea: Plan: intolerant of CPAP (17) Hypothyroidism: Plan CK mildly elevated at 1100 on admission, downtrended to 700 Mild hematuria likely dillon trauma with DOAC, not clotting, pink tinged. Remove dillon DVT ppx: on apixaban Dispo: lives home independently with family support, weaker than baseline, PT/OT rec rehab I updated his daughter 04/22 by phone, son in room 04/23 Admission and Anticipated Discharge Date Admission Date: April 21, 2023 Subjective Slowly improving, no shortness of breath no dyspnea, has had mildly elevated heart rates with his A-fib which seems to be asymptomatic, leg edema is dramatically improved, left ankle remains painful skin is tender posteriorly, right third and fourth MCP remain painful but are improving left first MTP no longer painful Physical Exam 2 Physical Exam: PHYSICAL EXAMINATION Last 24h vital signs reviewed, see documentation in flowsheet General: Awake laying in bed HEENT: Normocephalic, atraumatic, pupils round and equal, sclerae anicteric, no conjunctival injection, moist mucus membranes Lungs: Normal respiratory effort. CTAB ant no rhonchi rales or wheezes Heart: Irregular RAG, no murmurs. No JVD Abdomen: Soft, nondistended. Bowel sounds present. Extremities: Warm, dry, well-perfused. 1+ extremity edema, 1+ pedal. Again improved overnight left ankle acute erythema resolved except posteriorly where it still is warm and mildly indurated, warmth resolved otherwise. bilateral chronic venous stasis erythema and dermatitis. Ulcer L lateral ankle dressed right hand second and third MCP are tender mildly swollen but much less so. Erythema and warmth have resolved. left first MTP is no longer warm, minimally erythematous and nontender Neuro: Alert and oriented x self hospital basic situation, vague historian but seems more with that than on admission, face symmetric, moves 4 extremities well Psych: Normal affect and behavior Results & Data Results & Data Vital Signs (Past 12 Hours) Vital Signs Temp Pulse Pulse Pulse Resp BP Pulse Ox 04/25/23 11:12 36.5 C 90 16 110/65 95 04/25/23 08:30 97 H 04/25/23 08:30 04/25/23 07:09 36.7 C 119 H 19 108/73 92 04/25/23 03:04 36.6 C 71 18 104/66 93 O2 Del Method 04/25/23 11:12 Room Air 04/25/23 08:30 04/25/23 08:30 Room Air 04/25/23 07:09 Room Air 04/25/23 03:04 Room Air Laboratory Results 04/24/23 05:13 04/25/23 06:26 PG Care Time/CCT Total # of Minutes Spent Total Time Spent with Patient: Total time spent is greater than 50% in coordination of care (as documented) at patient's floor/unit and/or counseling patient: Coding Level of Care Code 28790 SUB INP/OBS CARE 2/35MIN Diagnoses Cellulitis of left lower extremity L03.116 Chronic systolic CHF (congestive heart failure) I50.22 Polyarticular gout M10.9 Permanent atrial fibrillation I48.21 Atrial fibrillation type: permanent CKD (chronic kidney disease) stage 3, GFR 30-59 ml/min N18.30 Hand pain, right M79.641 Elevated troponin R79.89 Bilateral lower extremity edema R60.0 Acute pain of left lower extremity M79.605 Generalized weakness R53.1 BPH (benign prostatic hyperplasia) N40.0 Cardiomyopathy I42.9 Ischemic cardiomyopathy I25.5 Mild cognitive impairment G31.84 Coronary artery disease of [place] artery of [place] heart with stable angina pectoris I25.118 Coronary Disease-Associated Artery/Lesion type: [place] artery [place] vs. transplanted heart: [place] heart Associated angina: with stable angina Moderate obstructive sleep apnea G47.33 Hypothyroidism E03.9 (4) Atrial fibrillation Atrial fibrillation type: permanent Qualified Code(s): I48.21 - Permanent atrial fibrillation (15) CAD (coronary artery disease) Coronary Disease-Associated Artery/Lesion type: [place] artery [place] vs. transplanted heart: [place] heart Associated angina: with stable angina Qualified Code(s): I25.118 - Atherosclerotic heart disease of [place] coronary artery with other forms of angina pectoris
[2023-04-25] MEDS: DIGOXIN 0.125 MG TAB PO SCH (16:34)
[2023-04-25] MEDS: ATORVASTATIN 40 MG TAB PO SCH (21:17)
[2023-04-26] MEDS: LEVOTHYROXINE SODIUM 75 MCG TABLET PO SCH (06:03)
[2023-04-26 07:21] LABS: Hematocrit (blood only) 48.1 % (42.0-52.0); Hemoglobin 16.5 g/dl (14.0-18.0); Mean Corpuscular Hemoglobin 33.4 pg (25.0-34.0); Mean Corpuscular Hgb Conc 34.3 g/dL (32.0-36.0); Mean Corpuscular Volume 97.4 fL (80.0-100.0); Mean Platelet Volume 10.5 fL (9.4-12.4); Platelet Count 406 K/uL (130-400); RDW Coefficient of Variation 13.2 % (11.5-14.5); RDW Standard Deviation 47.6 fL (36.4-46.3); Red Blood Count 4.94 M/uL (4.70-6.10)
[2023-04-26 07:50] LABS: BUN Creatinine Ratio 24.3 (10-20); Calcium 9.1 mg/dl (8.6-10.3); Creatinine Clr Calc Pharmacy 41.2 ml/min; Est GFR (Non-African American) 36.3 ml/min; Potassium 3.8 mmol/L (3.5-5.1)
[2023-04-26] MEDS: INSULIN ASPART PER UNIT CHARGE SC SCH ×4 (08:21→20:17)
[2023-04-26] MEDS: VALSARTAN/SACUBITRIL 26/24MG TAB PO SCH ×2 (08:24→20:16)
[2023-04-26] MEDS: METOPROLOL SUCC 50MG EXT REL TAB PO SCH ×2 (08:25→20:17)
[2023-04-26] MEDS: modafiniL 100 MG TAB PO SCH (08:25)
[2023-04-26] MEDS: cephALEXin 500 MG CAP PO SCH ×4 (08:25→20:17)
[2023-04-26] MEDS: predniSONE 10 MG TABLET PO SCH (08:25)
[2023-04-26] MEDS: TICAGRELOR 90 MG TAB PO SCH ×2 (08:26→20:16)
[2023-04-26] MEDS: APIXABAN 5 MG TABLET PO SCH ×2 (08:26→20:17)
[2023-04-26] MEDS: BUMETANIDE 1 MG TAB PO SCH (08:26)
[2023-04-26] MEDS: SPIRONOLACTONE 25 MG TAB PO SCH (08:26)
[2023-04-26] MEDS: EMPAGLIFLOZIN 10 MG TAB PO SCH (08:26)
[2023-04-26] MEDS: DIGOXIN 0.125 MG TAB PO SCH (12:44)
--- NOTE | 2023-04-26 16:12 | Hospitalist Progress Note ---
Date of Service April 26, 2023 Assessment & Plan (1) Cellulitis of left lower extremity: Plan: Improved s/p daptomycin IV and cefepime IV Transitioned to PO keflex on 04/23 Day #6 of IV/PO abx Plan 10 days of Rx then stop all abx Local wound care for small ulcerations distal L leg (2) Acute on chronic systolic (congestive) heart failure: Plan: EF 30-35% on most recent echo 04/09/23 follows with [facility] [place] Cardiology acute decompensation - 2nd to poorly controlled a.fib? 2nd to missing meds and/or dietary indiscretion (in light of memory issues)? he appears relatively compensated today cont bumex cont BB cont cont aldactone and Entresto as long as renal function remains stable cont Empagliflozin daily (3) Polyarticular gout: Plan: acute synovitis of R 3rd/finger MCPs and L 1st MTP improved s/p 5 day course of prednisone 10mg daily (today is day #5) x-rays neg for fracture Uric acid 14 may need additional prednisone at 5mg for a few more days - will re-eval tomorrow consider allopurinol prophylaxis in the future (4) Atrial fibrillation: Plan: continue digoxin, metoprolol succ BID, and apixaban BID rates are elevated even at rest not a candidate for cardizem due to depressed LV function sent message to cardiology requesting another visit for suggestions for his uncontrolled a.fib (5) CKD (chronic kidney disease) stage 3, GFR 30-59 ml/min: Plan: Cr last six months has ranged from 1.5-2.0 Cr 1.8 this am Repeat BMP am (6) Hand pain, right: Plan: 2nd gout attack (7) Elevated troponin: Plan: peak HS trop 96 earlier this admission no ischemic symptoms likely myocardial demand ischemia in setting of #1 (8) Bilateral lower extremity edema: Plan: improved s/p IV diuretics (9) Generalized weakness: Plan: multifactorial - cellulitis, systolic CHF, ?myopathy from statin? resp BioFire panel negative repeat CPK am (10) BPH (benign prostatic hyperplasia): Plan: not on meds for such (11) Ischemic cardiomyopathy: Plan: EF 30-35% with multiple WMAs decompensated CHF this admission requiring diuresis follows with Dr Macario - [facility] [place] Cardiology (12) Mild cognitive impairment: Plan: 2nd to prior strokes? (13) CAD (coronary artery disease): Plan: per records - post PCI to circumflex with 2 stents. stage LAD intervention with CHULA x 2 - 05/2015. repeat intervention to the LAD (overlapping stents) in March of 2017 for very late stent thrombosis. no ischemic symptoms at this time. cont BB cont ticagrelor BID statin on hold due to elevated CPK (14) Moderate obstructive sleep apnea: Plan: intolerant of CPAP modafinil for such?? (15) Hypothyroidism: Plan: TSH 2 this admission cont synthroid (16) Elevated CPK: Plan: CPK remains elevated on several checks this admission he denies myalgias he is on high-dose statin -- will hold and follow serial CPKs if CPK remains elevated will need additional investigation (17) Cerebrovascular disease: Plan: multiple strokes in the past cont Eliquis for secondary prevention in light of chronic a.fib/flutter Plan Dispo: lives home independently with family support PT/OT advising rehab however - will d/w social work tomorrow Admission and Anticipated Discharge Date Admission Date: April 21, 2023 Subjective tele overnight - a.fib, rates >100 with activity and even some times at rest during the visit he was laying in bed he had just been incontinent of stool he was confused at times during our conversation denied any dyspnea denied chest pain reports b/l hand pain is better states that left leg is paper machine back tender eating fair (50% of meals per nursing flowsheets) Review of Systems Review of Systems: gen - no fevers cv - no chest pain pulm - no dyspnea or cough GI - no abd pain Physical Exam Physical Exam: gen - NAD, mildly confused mouth - MMM neck - no JVD heart - irregularly irregular, rate >100, s1 s2 lungs - CTA b/l abd - soft NT ND BS+ ext - no edema, pulses 2+ b/l skin - venous stasis changes b/l legs, no cellulitis either leg; minimal ulcerations seen left distal lateral leg psych - a/o x 2; mildly confused neuro - no proximal muscle weakness of arms musculo - resolving synovitis of fingers of hands Results & Data Results & Data Vital Signs (Past 12 Hours) Vital Signs Temp Pulse Pulse Resp BP Pulse Ox O2 Del Method 04/26/23 16:02 36.7 C 61 18 120/70 94 Room Air 04/26/23 14:57 115 H 01/01/24 12:44 115 H 04/26/23 10:40 36.9 C 80 19 138/66 96 Room Air 04/26/23 07:15 92 H 04/26/23 07:15 Room Air 04/26/23 07:07 36.5 C 89 14 136/85 94 Room Air Laboratory Results Laboratory Results - last 24 hr 04/26/23 04/26/23 04/26/23 06:58 07:22 11:14 WBC 11.50 H RBC 4.94 Hgb 16.5 Hct 48.1 MCV 97.4 MCH 33.4 MCHC 34.3 RDW Std Deviation 47.6 H RDW Coeff of Sonja 13.2 Plt Count 406 H MPV 10.5 Sodium 136 Potassium 3.8 Chloride 98 Carbon Dioxide 28 Anion Gap 10 BUN 44 H Creatinine 1.81 H Est Cr Clr Drug Dosing 41.2 Est GFR ( Amer) 42.0 Est GFR (Non-Af Amer) 36.3 BUN/Creatinine Ratio 24.3 H Glucose 95 POC Glucose 99 118 H Calcium 9.1 Total Creatine Kinase 921 H 04/26/23 04/26/23 16:08 20:14 WBC RBC Hgb Hct MCV MCH MCHC RDW Std Deviation RDW Coeff of Sonja Plt Count MPV Sodium Potassium Chloride Carbon Dioxide Anion Gap BUN Creatinine Est Cr Clr Drug Dosing Est GFR ( Amer) Est GFR (Non-Af Amer) BUN/Creatinine Ratio Glucose POC Glucose 105 H 108 H Calcium Total Creatine Kinase PG Care Time/CCT Total # of Minutes Spent Total Time Spent with Patient: Total time spent is greater than 50% in coordination of care (as documented) at patient's floor/unit and/or counseling patient: Coding Level of Care Code 06252 SUB INP/OBS CARE 3/50MIN Diagnoses Cellulitis of left lower extremity L03.116 Acute on chronic systolic (congestive) heart failure I50.23 Polyarticular gout M10.9 Permanent atrial fibrillation I48.21 Atrial fibrillation type: permanent CKD (chronic kidney disease) stage 3, GFR 30-59 ml/min N18.30 Hand pain, right M79.641 Elevated troponin R79.89 Bilateral lower extremity edema R60.0 Generalized weakness R53.1 BPH (benign prostatic hyperplasia) N40.0 Ischemic cardiomyopathy I25.5 Mild cognitive impairment G31.84 Coronary artery disease of [place] artery of [place] heart with stable angina pectoris I25.118 Associated angina: with stable angina Coronary Disease-Associated Artery/Lesion type: [place] artery [place] vs. transplanted heart: [place] heart Moderate obstructive sleep apnea G47.33 Hypothyroidism E03.9 Elevated CPK R74.8 Cerebrovascular disease I67.9 (4) Atrial fibrillation Atrial fibrillation type: permanent Qualified Code(s): I48.21 - Permanent atrial fibrillation (13) CAD (coronary artery disease) Associated angina: with stable angina Coronary Disease-Associated Artery/Lesion type: [place] artery [place] vs. transplanted heart: [place] heart Qualified Code(s): I25.118 - Atherosclerotic heart disease of [place] coronary artery with other forms of angina pectoris
[2023-04-27] MEDS: LEVOTHYROXINE SODIUM 75 MCG TABLET PO SCH (05:36)
[2023-04-27 07:04] LABS: Basophils # (auto) 0.08 K/uL (0.00-0.20); Basophils % (auto) 0.6 %; Eosinophils # (auto) 0.22 K/uL (0.00-0.50); Eosinophils % (auto) 1.6 %; Hematocrit (blood only) 49.1 % (42.0-52.0); Hemoglobin 17.2 g/dl (14.0-18.0); Immature Granulocytes # (auto) 0.17 K/uL (0.01-0.20); Immature Granulocytes % (auto) 1.2 %; Lymphocytes # (auto) 1.52 K/uL (1.20-3.40); Lymphocytes % (auto) 11.1 %; Mean Corpuscular Hemoglobin 33.7 pg (25.0-34.0); Mean Corpuscular Volume 96.1 fL (80.0-100.0); Mean Platelet Volume 10.6 fL (9.4-12.4); Monocytes # (auto) 1.39 K/uL (0.11-0.59); Monocytes % (auto) 10.2 %; Neutrophils # (auto) 10.28 K/uL (1.40-6.50); Neutrophils % (auto) 75.3 %; Platelet Count 486 K/uL (130-400); RDW Coefficient of Variation 13.2 % (11.5-14.5); RDW Standard Deviation 46.7 fL (36.4-46.3); Red Blood Count 5.11 M/uL (4.70-6.10); White Blood Count 13.66 K/ul (4.8-10.8)
[2023-04-27 07:24] LABS: BUN Creatinine Ratio 29.4 (10-20); Calcium 9.3 mg/dl (8.6-10.3); Creatinine Clr Calc Pharmacy 40.8 ml/min; Est GFR (African American) 43.2 ml/min; Est GFR (Non-African American) 37.3 ml/min; Potassium 3.8 mmol/L (3.5-5.1)
[2023-04-27] MEDS: METOPROLOL SUCC 50MG EXT REL TAB PO SCH ×2 (09:11→20:21)
[2023-04-27] MEDS: VALSARTAN/SACUBITRIL 26/24MG TAB PO SCH ×2 (09:12→20:22)
[2023-04-27] MEDS: SPIRONOLACTONE 25 MG TAB PO SCH (09:12)
[2023-04-27] MEDS: BUMETANIDE 1 MG TAB PO SCH (09:12)
[2023-04-27] MEDS: APIXABAN 5 MG TABLET PO SCH ×2 (09:13→20:20)
[2023-04-27] MEDS: EMPAGLIFLOZIN 10 MG TAB PO SCH (09:13)
[2023-04-27] MEDS: TICAGRELOR 90 MG TAB PO SCH ×2 (09:13→20:22)
[2023-04-27] MEDS: modafiniL 100 MG TAB PO SCH (09:24)
[2023-04-27] MEDS: cephALEXin 500 MG CAP PO SCH ×4 (09:24→20:20)
[2023-04-27] MEDS: INSULIN ASPART PER UNIT CHARGE SC SCH ×4 (09:25→20:21)
[2023-04-27] MEDS ORDERED: METOPROLOL TARTRATE 50 MG TAB PO STA (14:25)
[2023-04-27] MEDS: DIGOXIN 0.125 MG TAB PO SCH (17:11)
[2023-04-27] MEDS ORDERED: predniSONE 5 MG TAB PO ONE (19:22)
--- NOTE | 2023-04-27 19:23 | Hospitalist Progress Note ---
Date of Service April 27, 2023 Assessment & Plan (1) Cellulitis of left lower extremity: Plan: Resolved s/p daptomycin IV and cefepime IV Transitioned to PO keflex on 04/23 Day #7 of IV/PO abx Plan 10 days of Rx then stop all abx Local wound care for small ulcerations distal L leg (2) Acute on chronic systolic (congestive) heart failure: Plan: EF 30-35% on most recent echo 04/09/23 follows with [facility] [place] Cardiology acute decompensation - 2nd to poorly controlled a.fib? 2nd to missing meds and/or dietary indiscretion (in light of memory issues)? may be combination of these factors he appears relatively compensated today cont bumex cont BB cont cont aldactone and Entresto as long as renal function remains stable cont Empagliflozin daily (3) Polyarticular gout: Plan: acute synovitis of R 3rd/finger MCPs and L 1st MTP improved s/p 5 day course of prednisone 10mg daily x-rays neg for fracture Uric acid 14 will give 3 additional days of Rx with prednisone 5mg daily consider allopurinol prophylaxis in the future (4) Atrial fibrillation: Plan: continue digoxin, metoprolol succ BID, and apixaban BID rates are elevated even at rest not a candidate for cardizem due to depressed LV function I corresponded with Dr Macario from cardiology who knows Mr Delgado from clinic He recommends increasing meto succ to 150mg BID for now He will eval Mr Delgado tomorrow during rounds (5) CKD (chronic kidney disease) stage 3, GFR 30-59 ml/min: Plan: Cr last six months has ranged from 1.5-2.0 Cr 1.7 this am Repeat BMP am (6) Hand pain, right: Plan: 2nd gout attack prednisone x 3 additional days ordered (7) Elevated troponin: Plan: peak HS trop 96 earlier this admission no ischemic symptoms likely myocardial demand ischemia in setting of #1 (8) Bilateral lower extremity edema: Plan: improved s/p IV diuretics (9) Generalized weakness: Plan: multifactorial - cellulitis, systolic CHF, ?myopathy from statin? resp BioFire panel negative CPK IS improving cont to hold statin repeat CPK am (10) BPH (benign prostatic hyperplasia): Plan: not on meds for such (11) Ischemic cardiomyopathy: Plan: EF 30-35% with multiple WMAs decompensated CHF this admission requiring diuresis follows with Dr Macario - [facility] [place] Cardiology (12) Mild cognitive impairment: Plan: 2nd to prior strokes (13) CAD (coronary artery disease): Plan: per records - post PCI to circumflex with 2 stents. stage LAD intervention with CHULA x 2 - 05/2015. repeat intervention to the LAD (overlapping stents) in March of 2017 for very late stent thrombosis. no ischemic symptoms at this time. cont BB cont ticagrelor BID statin on hold due to elevated CPK (14) Moderate obstructive sleep apnea: Plan: intolerant of CPAP modafinil for such?? (15) Hypothyroidism: Plan: TSH 2 this admission cont synthroid (16) Elevated CPK: Plan: CPK remains elevated on several checks this admission he denies myalgias he is on high-dose statin -- will hold CPK is down-trending repeat CPK am (17) Cerebrovascular disease: Plan: multiple strokes in the past cont Eliquis for secondary prevention in light of chronic a.fib/flutter Plan Dispo: lives home independently with family support PT/OT advising rehab however left message for pt's son on his voicemail this evening Admission and Anticipated Discharge Date Admission Date: April 21, 2023 Subjective tele still shows uncontrolled a.fib, often times at rest had 14-beat of NSVT this am during rounds he denied ANY chest pain, dizziness, palpitations around the time of this NSVT patient resting comfortably in bed during the visit denies all complaints except mild pain in right hand small joints remains pleasantly confused Review of Systems Review of Systems: cv - no chest pain pulm - no dyspnea or cough GI - no abd pain or N/V Physical Exam Physical Exam: gen - NAD, pleasantly confused mouth - MMM neck - no JVD heart - irregularly irregular, rate >100, s1 s2, no murmur lungs - CTA b/l abd - soft NT ND BS+ ext - no edema, pulses 2+ b/l skin - venous stasis changes b/l legs, no cellulitis either leg; minimal ulcerations seen left distal lateral leg - these are clean psych - a/o x 2; mildly confused musculo - resolving synovitis of fingers of hands but minimal synovitis of right 3rd finger Results & Data Results & Data Vital Signs (Past 12 Hours) Vital Signs Temp Pulse Pulse Pulse Resp BP Pulse Ox 04/27/23 17:11 84 04/27/23 17:00 92 04/27/23 15:00 64 15 126/63 89 L 04/27/23 10:52 83 15 119/90 93 04/27/23 09:48 86 04/27/23 09:48 36.4 C L 86 14 124/77 97 O2 Del Method 04/27/23 17:11 04/27/23 17:00 Room Air 04/27/23 15:00 Room Air 04/27/23 10:52 Room Air 04/27/23 09:48 04/27/23 09:48 Room Air Laboratory Results Laboratory Results - last 24 hr 04/26/23 04/27/23 04/27/23 20:14 06:42 07:08 WBC 13.66 H RBC 5.11 Hgb 17.2 Hct 49.1 MCV 96.1 MCH 33.7 MCHC 35.0 RDW Std Deviation 46.7 H RDW Coeff of Sonja 13.2 Plt Count 486 H MPV 10.6 Immature Gran % (Auto) 1.2 Neut % (Auto) 75.3 Lymph % (Auto) 11.1 [place] % (Auto) 10.2 Eos % (Auto) 1.6 Baso % (Auto) 0.6 Neut # (Auto) 10.28 H Lymph # (Auto) 1.52 [place] # (Auto) 1.39 H Eos # (Auto) 0.22 Baso # (Auto) 0.08 Immature Gran # (Auto) 0.17 Sodium 136 Potassium 3.8 Chloride 97 L Carbon Dioxide 29 Anion Gap 10 BUN 52 H Creatinine 1.77 H Est Cr Clr Drug Dosing 40.8 Est GFR ( Amer) 43.2 Est GFR (Non-Af Amer) 37.3 BUN/Creatinine Ratio 29.4 H Glucose 97 POC Glucose 108 H 113 H Calcium 9.3 Total Creatine Kinase 600 H 04/27/23 04/27/23 10:54 16:26 WBC RBC Hgb Hct MCV MCH MCHC RDW Std Deviation RDW Coeff of Sonja Plt Count MPV Immature Gran % (Auto) Neut % (Auto) Lymph % (Auto) [place] % (Auto) Eos % (Auto) Baso % (Auto) Neut # (Auto) Lymph # (Auto) [place] # (Auto) Eos # (Auto) Baso # (Auto) Immature Gran # (Auto) Sodium Potassium Chloride Carbon Dioxide Anion Gap BUN Creatinine Est Cr Clr Drug Dosing Est GFR ( Amer) Est GFR (Non-Af Amer) BUN/Creatinine Ratio Glucose POC Glucose 128 H 96 Calcium Total Creatine Kinase PG Care Time/CCT Total # of Minutes Spent Total Time Spent with Patient: Total time spent is greater than 50% in coordination of care (as documented) at patient's floor/unit and/or counseling patient: Coding Level of Care Code 90991 SUB INP/OBS CARE 3/50MIN Diagnoses Cellulitis of left lower extremity L03.116 Acute on chronic systolic (congestive) heart failure I50.23 Polyarticular gout M10.9 Permanent atrial fibrillation I48.21 Atrial fibrillation type: permanent CKD (chronic kidney disease) stage 3, GFR 30-59 ml/min N18.30 Hand pain, right M79.641 Elevated troponin R79.89 Bilateral lower extremity edema R60.0 Generalized weakness R53.1 BPH (benign prostatic hyperplasia) N40.0 Ischemic cardiomyopathy I25.5 Mild cognitive impairment G31.84 Coronary artery disease of [place] artery of [place] heart with stable angina pectoris I25.118 Associated angina: with stable angina Coronary Disease-Associated Artery/Lesion type: [place] artery [place] vs. transplanted heart: [place] heart Moderate obstructive sleep apnea G47.33 Hypothyroidism E03.9 Elevated CPK R74.8 Cerebrovascular disease I67.9 (4) Atrial fibrillation Atrial fibrillation type: permanent Qualified Code(s): I48.21 - Permanent at rial fibrillation (13) CAD (coronary artery disease) Associated angina: with stable angina Coronary Disease-Associated Artery/Lesion type: [place] artery [place] vs. transplanted heart: [place] heart Qualified Code(s): I25.118 - Atherosclerotic heart disease of [place] coronary artery with other forms of angina pectoris
[2023-04-28] MEDS: LEVOTHYROXINE SODIUM 75 MCG TABLET PO SCH (06:11)
[2023-04-28 07:29] LABS: BUN Creatinine Ratio 31.4 (10-20); Calcium 9.1 mg/dl (8.6-10.3); Creatinine Clr Calc Pharmacy 37.3 ml/min; Est GFR (African American) 38.7 ml/min; Est GFR (Non-African American) 33.4 ml/min; Potassium 4.6 mmol/L (3.5-5.1)
[2023-04-28] MEDS: INSULIN ASPART PER UNIT CHARGE SC SCH ×4 (08:16→20:28)
[2023-04-28] MEDS: modafiniL 100 MG TAB PO SCH (08:21)
[2023-04-28] MEDS: VALSARTAN/SACUBITRIL 26/24MG TAB PO SCH ×2 (08:22→20:29)
[2023-04-28] MEDS: TICAGRELOR 90 MG TAB PO SCH ×2 (08:22→20:27)
[2023-04-28] MEDS: METOPROLOL SUCC 50MG EXT REL TAB PO SCH ×2 (08:22→20:28)
[2023-04-28] MEDS: EMPAGLIFLOZIN 10 MG TAB PO SCH (08:23)
[2023-04-28] MEDS: APIXABAN 5 MG TABLET PO SCH ×2 (08:23→20:26)
[2023-04-28] MEDS: BUMETANIDE 1 MG TAB PO SCH (08:23)
[2023-04-28] MEDS: SPIRONOLACTONE 25 MG TAB PO SCH (08:23)
[2023-04-28] MEDS: cephALEXin 500 MG CAP PO SCH ×4 (08:23→20:27)
[2023-04-28] MEDS: predniSONE 5 MG TAB PO SCH (08:24)
--- NOTE | 2023-04-28 10:22 | Cardiology Progress Note ---
Date of Service April 28, 2023 Assessment & Plan (1) Chronic systolic CHF (congestive heart failure): Plan: -appears euvolemic this morning. -continue Entresto, spironolactone, metoprolol, Bumex, and Jardiance. -follow-up in the CHF clinic. (2) Ischemic cardiomyopathy: Plan: -LVEF of 30-35%, March 2023. -continue medical management as described above. -consider ICD. (3) CAD (coronary artery disease): Plan: -numerous LAD stents, May 2015, March 2017. -quiescent on current medical regimen. (4) Atrial fibrillation, permanent: Plan: -ventricular response well controlled on metoprolol succinate 150 mg b.i.d. and digoxin. -continue Eliquis. Admission and Anticipated Discharge Date Admission Date: April 21, 2023 Subjective The patient is resting comfortably in bed without complaints of chest pain, dyspnea, or palpitations. Physical Exam Physical Exam: In general this is a well-developed well-nourished white male in no acute distress. HEENT exam is negative. Neck is supple with full carotid upstrokes. There are no carotid bruits. No JVD. There is no thyromegaly. Cardiovascular exam reveals an irregular rhythm with distant heart sounds. Lungs are clear without rales, rhonchi, or wheezes. Abdomen is soft and nontender without bruits. Extremities reveal intact radial artery pulses. There is trace pretibial edema Results & Data Vital Signs (Past 12 Hours) Vital Signs Temp Pulse Pulse Resp BP Pulse Ox O2 Del Method 04/28/23 07:02 37.1 C 74 16 101/67 97 Room Air 04/28/23 03:00 36.6 C 58 L 16 109/64 97 Room Air 04/28/23 00:12 90 04/27/23 22:44 36.6 C 60 16 100/71 95 Room Air Diagnostic Findings playground monitor notes atrial fibrillation with a controlled ventricular response of 70-80 beats per minute. PG Care Time/CCT Total # of Minutes Spent Total Time Spent with Patient: Total time spent is greater than 50% in coordination of care (as documented) at patient's floor/unit and/or counseling patient: Coding Level of Care Code 53518 SUB INP/OBS CARE 3/50MIN Diagnoses Chronic systolic CHF (congestive heart failure) I50.22 Ischemic cardiomyopathy I25.5 Coronary artery disease of [place] artery of [place] heart with stable angina pectoris I25.118 Associated angina: with stable angina Coronary Disease-Associated Artery/Lesion type: [place] artery [place] vs. transplanted heart: [place] heart Atrial fibrillation, permanent I48.21 (3) CAD (coronary artery disease) Associated angina: with stable angina Coronary Disease-Associated Artery/Lesion type: [place] artery [place] vs. transplanted heart: [place] heart Qualified Code(s): I25.118 - Atherosclerotic heart disease of [place] coronary artery with other forms of angina pectoris
[2023-04-28] MEDS: DIGOXIN 0.125 MG TAB PO SCH (16:45)
--- NOTE | 2023-04-28 20:47 | Hospitalist Progress Note ---
Date of Service April 28, 2023 Assessment & Plan (1) Cellulitis of left lower extremity: Plan: Resolved s/p daptomycin IV and cefepime IV Transitioned to PO keflex on 04/23 Day #8 of IV/PO abx Plan 10 days of Rx then stop all abx Local wound care for small ulcerations distal L leg (2) Acute on chronic systolic (congestive) heart failure: Plan: EF 30-35% on most recent echo 04/09/23 follows with [facility] [place] Cardiology acute decompensation - 2nd to poorly controlled a.fib? 2nd to missing meds and/or dietary indiscretion (in light of memory issues)? may be combination of these factors he appears compensated again today cont bumex cont BB cont cont aldactone and Entresto as long as renal function remains stable cont Empagliflozin daily (3) Polyarticular gout: Plan: acute synovitis of R 3rd/finger MCPs and L 1st MTP improved s/p 5 day course of prednisone 10mg daily x-rays neg for fracture Uric acid 14 will give 3 additional days of Rx with prednisone 5mg daily starting today consider allopurinol prophylaxis in the future (4) Atrial fibrillation: Plan: continue digoxin, metoprolol succ BID, and apixaban BID rates had been elevated even at rest not a candidate for cardizem due to depressed LV function I corresponded with Dr Macario from cardiology who knows Mr Delgado from clinic He recommended increasing meto succ to 150mg BID - this has helped nicely, and BPs are tolerating the increase appreciate his assistance (5) CKD (chronic kidney disease) stage 3, GFR 30-59 ml/min: Plan: Cr last six months has ranged from 1.5-2.0 Cr acceptable today Repeat BMP am (6) Hand pain, right: Plan: 2nd gout attack prednisone 5mg x 3 additional days ordered starting today (7) Elevated troponin: Plan: peak HS trop 96 earlier this admission no ischemic symptoms likely myocardial demand ischemia in setting of #1 (8) Bilateral lower extremity edema: Plan: 2nd decompensated CHF resolved (9) Generalized weakness: Plan: multifactorial - cellulitis, systolic CHF, ?myopathy from statin? resp BioFire panel negative CPK IS improving albeit slowly cont to hold statin repeat CPK am send an aldolase with it check sed rate/crp (10) BPH (benign prostatic hyperplasia): Plan: not on meds for such (11) Ischemic cardiomyopathy: Plan: EF 30-35% with multiple WMAs decompensated CHF this admission requiring diuresis follows with Dr Macario - [facility] [place] Cardiology (12) Mild cognitive impairment: Plan: 2nd to prior strokes (13) CAD (coronary artery disease): Plan: per records - post PCI to circumflex with 2 stents. stage LAD intervention with CHULA x 2 - 05/2015. repeat intervention to the LAD (overlapping stents) in March of 2017 for very late stent thrombosis. no ischemic symptoms at this time. cont BB cont ticagrelor BID statin on hold due to elevated CPK (14) Moderate obstructive sleep apnea: Plan: intolerant of CPAP modafinil for such?? (15) Hypothyroidism: Plan: TSH 2 this admission cont synthroid (16) Elevated CPK: Plan: CPK remains elevated on several checks this admission he denies myalgias but does have proximal muscle weakness of hip girdle he is on high-dose statin -- holding CPK is down-trending repeat CPK am get an aldolase with it (17) Cerebrovascular disease: Plan: multiple strokes in the past cont Eliquis for secondary prevention in light of chronic a.fib/flutter Plan Dispo: lives at home independently with family support however - needs rehab cont PT/OT updated pt's son this evening by phone extensively Admission and Anticipated Discharge Date Admission Date: April 21, 2023 Subjective tele - a.fib rates much improved with most rates <100 patient resting comfortably in bed during the visit no new complaints denies hand pain denies LLE pain staff report he was severely weak with trying to work with PT no new issues overnight patient agreeable to rehab Review of Systems Review of Systems: gen - no fevers cv - no chest pain or orthopnea GI - no abd pain/nausea/emesis pulm - no dyspnea Physical Exam Physical Exam: gen - NAD, pleasantly confused - maybe less so than yesterday mouth - MMM neck - no JVD heart - irregularly irregular, rate <100, s1 s2, no murmur lungs - CTA b/l abd - soft NT ND BS+ ext - no edema, pulses 2+ b/l skin - venous stasis changes b/l legs, no cellulitis either leg; minimal ulcerations seen left distal lateral leg - these are clean and nearly healed psych - a/o x 2; mildly confused musculo - resolved synovitis of fingers of hands; no synovitis of either foot or ankle Results & Data Results & Data Vital Signs (Past 12 Hours) Vital Signs Temp Pulse Pulse Resp BP Pulse Ox O2 Del Method 04/28/23 19:06 84 18 92/55 L 99 Room Air 04/28/23 16:45 95 H 04/28/23 15:21 36.4 C L 68 18 92/59 L 95 Room Air 04/28/23 11:37 36.4 C L 66 20 107/64 93 Room Air Laboratory Results Laboratory Results - last 24 hr 04/28/23 04/28/23 04/28/23 06:54 07:05 11:02 Sodium 136 Potassium 4.6 D Chloride 98 Carbon Dioxide 29 Anion Gap 9 BUN 61 H Creatinine 1.94 H Est Cr Clr Drug Dosing 37.3 Est GFR ( Amer) 38.7 Est GFR (Non-Af Amer) 33.4 BUN/Creatinine Ratio 31.4 H Glucose 97 POC Glucose 115 H 130 H Calcium 9.1 Total Creatine Kinase 614 H 04/28/23 04/28/23 16:04 19:55 Sodium Potassium Chloride Carbon Dioxide Anion Gap BUN Creatinine Est Cr Clr Drug Dosing Est GFR ( Amer) Est GFR (Non-Af Amer) BUN/Creatinine Ratio Glucose POC Glucose 116 H 134 H Calcium Total Creatine Kinase PG Care Time/CCT Total # of Minutes Spent Total Time Spent with Patient: Total time spent is greater than 50% in coordination of care (as documented) at patient's floor/unit and/or counseling patient: Coding Level of Care Code 79082 SUB INP/OBS CARE 2/35MIN Diagnoses Cellulitis of left lower extremity L03.116 Acute on chronic systolic (congestive) heart failure I50.23 Polyarticular gout M10.9 Permanent atrial fibrillation I48.21 Atrial fibrillation type: permanent CKD (chronic kidney disease) stage 3, GFR 30-59 ml/min N18.30 Hand pain, right M79.641 Elevated troponin R79.89 Bilateral lower extremity edema R60.0 Generalized weakness R53.1 BPH (benign prostatic hyperplasia) N40.0 Ischemic cardiomyopathy I25.5 Mild cognitive impairment G31.84 Coronary artery disease of [place] artery of [place] heart with stable angina pectoris I25.118 Associated angina: with stable angina Coronary Disease-Associated Artery/Lesion type: [place] artery [place] vs. transplanted heart: [place] heart Moderate obstructive sleep apnea G47.33 Hypothyroidism E03.9 Elevated CPK R74.8 Cerebrovascular disease I67.9 (4) Atrial fibrillation Atrial fibrillation type: permanent Qualified Code(s): I48.21 - Permanent atrial fibrillation (13) CAD (coronary artery disease) Associated angina: with stable angina Coronary Disease-Associated Artery/Lesion type: [place] artery [place] vs. transplanted heart: [place] heart Qualified Code(s): I25.118 - Atherosclerotic heart disease of [place] coronary artery with other forms of angina pectoris
[2023-04-29] MEDS ORDERED: SODIUM CHLORIDE 0.9% 250 ML IV ONE (03:13)
[2023-04-29] MEDS: LEVOTHYROXINE SODIUM 75 MCG TABLET PO SCH (06:11)
[2023-04-29 07:41] LABS: C Reactive Protein 2.12 mg/dl (0-0.5); Creatinine Clr Calc Pharmacy 38.7 ml/min; Est GFR (African American) 40.7 ml/min; Est GFR (Non-African American) 35.1 ml/min; Potassium 4.1 mmol/L (3.5-5.1)
[2023-04-29] MEDS: SPIRONOLACTONE 25 MG TAB PO SCH (08:07)
[2023-04-29] MEDS: APIXABAN 5 MG TABLET PO SCH ×2 (08:07→21:00)
[2023-04-29] MEDS: VALSARTAN/SACUBITRIL 26/24MG TAB PO SCH ×2 (08:07→20:57)
[2023-04-29] MEDS: TICAGRELOR 90 MG TAB PO SCH ×2 (08:08→21:00)
[2023-04-29] MEDS: cephALEXin 500 MG CAP PO SCH ×4 (08:08→20:57)
[2023-04-29] MEDS: predniSONE 5 MG TAB PO SCH (08:10)
[2023-04-29] MEDS: BUMETANIDE 1 MG TAB PO SCH (08:10)
[2023-04-29] MEDS: EMPAGLIFLOZIN 10 MG TAB PO SCH (08:10)
[2023-04-29] MEDS: INSULIN ASPART PER UNIT CHARGE SC SCH ×4 (08:13→21:01)
[2023-04-29] MEDS: modafiniL 100 MG TAB PO SCH (08:15)
[2023-04-29] MEDS: METOPROLOL SUCC 50MG EXT REL TAB PO SCH ×2 (10:47→20:58)
[2023-04-29] MEDS: DIGOXIN 0.125 MG TAB PO SCH (15:25)
--- NOTE | 2023-04-29 19:44 | Hospitalist Progress Note ---
Date of Service April 29, 2023 Assessment & Plan (1) Cellulitis of left lower extremity: Plan: Resolved s/p daptomycin IV and cefepime IV Transitioned to PO keflex on 04/23 Day #9 of IV/PO abx Plan 10 days of Rx then stop all abx Local wound care for small ulcerations distal L leg (2) Acute on chronic systolic (congestive) heart failure: Plan: EF 30-35% on most recent echo 04/09/23 follows with [facility] [place] Cardiology acute decompensation - 2nd to poorly controlled a.fib? 2nd to missing meds and/or dietary indiscretion (in light of memory issues)? may be combination of these factors he appears compensated again today cont bumex cont BB cont cont aldactone and Entresto as long as renal function remains stable cont Empagliflozin daily (3) Polyarticular gout: Plan: resolved with prednisone acute synovitis of R 3rd/finger MCPs and L 1st MTP x-rays neg for fracture Uric acid 14 consider allopurinol prophylaxis in the future (4) Atrial fibrillation: Plan: continue digoxin, metoprolol succ BID (150mg BID), and apixaban BID rates improved with BB increase not a candidate for cardizem due to depressed LV function appreciate Dr Macario's assistance from cardiology (5) CKD (chronic kidney disease) stage 3, GFR 30-59 ml/min: Plan: Cr last six months has ranged from 1.5-2.0 Cr stable Repeat BMP am (6) Hand pain, right: Plan: 2nd gout attack resolved s/p prednisone (7) Elevated troponin: Plan: peak HS trop 96 earlier this admission no ischemic symptoms likely myocardial demand ischemia in setting of #1 (8) Bilateral lower extremity edema: Plan: 2nd decompensated CHF resolved (9) Generalized weakness: Plan: multifactorial - cellulitis, systolic CHF, ?myopathy from statin? resp BioFire panel negative CPK IS improving albeit slowly cont to hold statin repeat CPK am sent aldolase sed rate/crp both mildly elevated prox muscle weakness of legs c/w myopathy (10) BPH (benign prostatic hyperplasia): Plan: not on meds for such (11) Ischemic cardiomyopathy: Plan: EF 30-35% with multiple WMAs decompensated CHF this admission requiring diuresis follows with Dr Macario - [facility] [place] Cardiology (12) Mild cognitive impairment: Plan: 2nd to prior strokes (13) CAD (coronary artery disease): Plan: per records - post PCI to circumflex with 2 stents. stage LAD intervention with CHULA x 2 - 05/2015. repeat intervention to the LAD (overlapping stents) in March of 2017 for very late stent thrombosis. no ischemic symptoms at this time. cont BB cont ticagrelor BID statin on hold due to elevated CPK (14) Moderate obstructive sleep apnea: Plan: intolerant of CPAP cont modafinil (15) Hypothyroidism: Plan: TSH 2 this admission cont synthroid (16) Elevated CPK: Plan: CPK remains elevated on several checks this admission he denies myalgias but does have proximal muscle weakness of hip girdle he is on high-dose statin -- holding CPK is down-trending repeat CPK am aldolase pending hip strength unchanged (17) Cerebrovascular disease: Plan: multiple strokes in the past cont Eliquis for secondary prevention in light of chronic a.fib/flutter Plan son updated by phone yesterday dispo - SNF for rehab Admission and Anticipated Discharge Date Admission Date: April 21, 2023 Subjective no events he is feeling well no complaints at all today pleasant confusion as previous tele - a.fib rates <100 Review of Systems Review of Systems: cv - no chest pain pulm - no dyspnea GI - no pain or N/V musculo - still with severe weakness in b/l hips/thighs Physical Exam Physical Exam: gen - NAD, pleasantly confused (no change) mouth - MMM neck - no JVD heart - irregularly irregular, rate <100, s1 s2, no murmur lungs - CTA b/l abd - soft NT ND BS+ ext - no edema, pulses 2+ b/l skin - venous stasis changes b/l legs, no cellulitis either leg musculo - resolved synovitis of fingers of hands; no synovitis of either foot or ankle neuro - ongoing proximal muscle weakness of b/l hips (flexion - severely weak); no shoulder girdle weakness or distal strength issues (hands/feet) Results & Data Results & Data Vital Signs (Past 12 Hours) Vital Signs Temp Pulse Pulse Resp BP Pulse Ox O2 Del Method 04/29/23 19:03 36.8 C 84 18 100/72 95 Room Air 04/29/23 15:56 92 H 04/29/23 15:25 92 H 04/29/23 14:47 36.6 C 57 L 18 92/52 L 95 Room Air 04/29/23 11:14 36.3 C L 72 18 99/59 L 94 Room Air Laboratory Results Laboratory Results - last 24 hr 04/28/23 04/29/23 04/29/23 19:55 06:51 07:20 ESR 57 H Sodium 134 L Potassium 4.1 Chloride 98 Carbon Dioxide 28 Anion Gap 8 BUN 67 H Creatinine 1.86 H Est Cr Clr Drug Dosing 38.7 Est GFR ( Amer) 40.7 Est GFR (Non-Af Amer) 35.1 BUN/Creatinine Ratio 36.0 H Glucose 96 POC Glucose 134 H 107 H Calcium 9.0 Total Creatine Kinase 409 H C-Reactive Protein 2.12 H Aldolase Pending 04/29/23 04/29/23 11:20 16:09 ESR Sodium Potassium Chloride Carbon Dioxide Anion Gap BUN Creatinine Est Cr Clr Drug Dosing Est GFR ( Amer) Est GFR (Non-Af Amer) BUN/Creatinine Ratio Glucose POC Glucose 128 H 101 H Calcium Total Creatine Kinase C-Reactive Protein Aldolase PG Care Time/CCT Total # of Minutes Spent Total Time Spent with Patient: Total time spent is greater than 50% in coordination of care (as documented) at patient's floor/unit and/or counseling patient: Coding Level of Care Code 30023 SUB INP/OBS CARE 2/35MIN Diagnoses Cellulitis of left lower extremity L03.116 Acute on chronic systolic (congestive) heart failure I50.23 Polyarticular gout M10.9 Permanent atrial fibrillation I48.21 Atrial fibrillation type: permanent CKD (chronic kidney disease) stage 3, GFR 30-59 ml/min N18.30 Hand pain, right M79.641 Elevated troponin R79.89 Bilateral lower extremity edema R60.0 Generalized weakness R53.1 BPH (benign prostatic hyperplasia) N40.0 Ischemic cardiomyopathy I25.5 Mild cognitive impairment G31.84 Coronary artery disease of [place] artery of [place] heart with stable angina pectoris I25.118 Associated angina: with stable angina Coronary Disease-Associated Artery/Lesion type: [place] artery [place] vs. transplanted heart: [place] heart Moderate obstructive sleep apnea G47.33 Hypothyroidism E03.9 Elevated CPK R74.8 Cerebrovascular disease I67.9 (4) Atrial fibrillation Atrial fibrillation type: permanent Qualified Code(s): I48.21 - Permanent atrial fibrillation (13) CAD (coronary artery disease) Associated angina: with stable angina Coronary Disease-Associated Artery/Lesion type: [place] artery [place] vs. transplanted heart: [place] heart Qualified Code(s): I25.118 - Atherosclerotic heart disease of [place] coronary artery with other forms of angina pectoris
[2023-04-30] MEDS: LEVOTHYROXINE SODIUM 75 MCG TABLET PO SCH (06:20)
[2023-04-30 07:40] LABS: BUN Creatinine Ratio 33.3 (10-20); Creatinine Clr Calc Pharmacy 37.3 ml/min; Est GFR (African American) 39.2 ml/min; Est GFR (Non-African American) 33.8 ml/min; Potassium 4.3 mmol/L (3.5-5.1)
[2023-04-30] MEDS: APIXABAN 5 MG TABLET PO SCH ×2 (09:58→20:16)
[2023-04-30] MEDS: BUMETANIDE 1 MG TAB PO SCH (09:58)
[2023-04-30] MEDS: cephALEXin 500 MG CAP PO SCH ×3 (09:58→17:39)
[2023-04-30] MEDS: TICAGRELOR 90 MG TAB PO SCH ×2 (09:58→20:16)
[2023-04-30] MEDS: modafiniL 100 MG TAB PO SCH (09:58)
[2023-04-30] MEDS: INSULIN ASPART PER UNIT CHARGE SC SCH ×4 (10:09→19:42)
[2023-04-30] MEDS: SPIRONOLACTONE 25 MG TAB PO SCH (10:11)
[2023-04-30] MEDS: EMPAGLIFLOZIN 10 MG TAB PO SCH (10:11)
[2023-04-30] MEDS: METOPROLOL SUCC 50MG EXT REL TAB PO SCH ×2 (10:11→20:15)
[2023-04-30] MEDS: VALSARTAN/SACUBITRIL 26/24MG TAB PO SCH ×2 (12:26→20:16)
[2023-04-30] MEDS: DIGOXIN 0.125 MG TAB PO SCH (17:08)
--- NOTE | 2023-04-30 21:23 | Hospitalist Progress Note ---
Date of Service April 30, 2023 Assessment & Plan (1) Cellulitis of left lower extremity: Plan: Resolved s/p daptomycin IV and cefepime IV early in the stay followed by transition to PO keflex on 04/23 Day #10 of IV/PO abx - stop abx today Local wound care for small ulcerations distal L leg (optifoam, etc) (2) Acute on chronic systolic (congestive) heart failure: Plan: EF 30-35% on most recent echo 04/09/23 follows with [facility] Cardiology remains compensated acute decompensation - 2nd to poorly controlled a.fib? 2nd to missing meds and/or dietary indiscretion (in light of memory issues)? probably combination of these factors cont bumex cont BB cont cont aldactone and Entresto as long as renal function remains stable cont Empagliflozin daily (3) Polyarticular gout: Plan: resolved with prednisone acute synovitis of R 3rd/finger MCPs and L 1st MTP x-rays neg for fracture Uric acid 14 consider allopurinol prophylaxis in the future send to rheum post-d/c (4) Atrial fibrillation: Plan: continue digoxin, metoprolol succ BID (150mg BID), and apixaban BID rates improved with BB increase appreciate Dr Macario's assistance from cardiology (5) CKD (chronic kidney disease) stage 3, GFR 30-59 ml/min: Plan: Cr last six months has ranged from 1.5-2.0 Cr stable again today Repeat BMP am (6) Hand pain, right: Plan: 2nd gout attack resolved s/p prednisone (7) Elevated troponin: Plan: peak HS trop 96 earlier this admission no ischemic symptoms likely myocardial demand ischemia in setting of #1 (8) Bilateral lower extremity edema: Plan: 2nd decompensated CHF resolved (9) Generalized weakness: Plan: multifactorial - cellulitis, systolic CHF, ?myopathy from statin? resp BioFire panel negative CPK IS improving albeit slowly cont to hold statin repeat CPK today noted aldolase returned normal sed rate/crp both mildly elevated prox muscle weakness of legs c/w myopathy rather than myositis send HMG-COa reductase inhibitor ab which, if elevated, is c/w statin-induced myopathy I discussed his care informally with Dr Hensley from rheumatology - Dr Hensley will see him post-d/c in clinic recommends holding statin until he is seen as outpatient (10) BPH (benign prostatic hyperplasia): Plan: not on meds for such (11) Ischemic cardiomyopathy: Plan: EF 30-35% with multiple WMAs decompensated CHF this admission requiring diuresis [place] [facility] [place] (12) Mild cognitive impairment: Plan: 2nd to prior strokes (13) CAD (coronary artery disease): Plan: per records - post PCI to circumflex with 2 stents. stage LAD intervention with CHULA x 2 - 05/2015. repeat intervention to the LAD (overlapping stents) in March of 2017 for very late stent thrombosis. no ischemic symptoms at this time. cont BB cont ticagrelor BID statin on hold due to elevated CPK (14) Moderate obstructive sleep apnea: Plan: intolerant of CPAP cont modafinil (15) Hypothyroidism: Plan: TSH 2 this admission cont synthroid (16) Elevated CPK: Plan: CPK remains elevated on several checks this admission he denies myalgias but does have proximal muscle weakness of hip girdle he is on high-dose statin -- holding CPK is down-trending repeat CPK remains mildly elevated aldolase returned normal see discussion above under "weakness" (17) Cerebrovascular disease: Plan: multiple strokes in the past cont Eliquis for secondary prevention in light of chronic a.fib/flutter Plan son updated by phone this week dispo - SNF for rehab Admission and Anticipated Discharge Date Admission Date: April 21, 2023 Subjective a.fib - rates <100 no events overnight patient resting in bed during the visit listening to music on the radio eating well denies any complaints he seemed sleepy Review of Systems Review of Systems: cv - no chest pain pulm - no dyspnea GI - no abd pain or nausea Physical Exam Physical Exam: gen - NAD, pleasantly confused, sleepy today mouth - MMM neck - no JVD heart - irregularly irregular, rates <100, s1 s2, no murmur lungs - CTA b/l abd - soft NT ND BS+ ext - no edema, pulses 2+ b/l skin - venous stasis changes b/l legs, no cellulitis either leg musculo - resolved synovitis of fingers of hands Results & Data Results & Data Vital Signs (Past 12 Hours) Vital Signs Temp Pulse Pulse Pulse Resp BP BP 04/30/23 21:00 04/30/23 20:10 72 113/64 04/30/23 19:00 36.5 C 59 L 18 102/63 04/30/23 17:08 88 04/30/23 14:27 36.7 C 55 L 19 103/69 04/30/23 11:31 36.3 C L 61 18 121/76 04/30/23 09:48 36.2 C L 87 18 119/73 Pulse Ox Pulse Ox O2 Del Method O2 Del Method 04/30/23 21:00 93 Room Air 04/30/23 20:10 04/30/23 19:00 93 Room Air 04/30/23 17:08 04/30/23 14:27 96 Room Air 04/30/23 11:31 97 Room Air 04/30/23 09:48 95 Room Air Laboratory Results Laboratory Results - last 24 hr 04/29/23 04/30/23 04/30/23 06:51 07:02 11:23 Sodium 136 Potassium 4.3 Chloride 99 Carbon Dioxide 30 Anion Gap 7 BUN 64 H Creatinine 1.92 H Est Cr Clr Drug Dosing 37.3 Est GFR ( Amer) 39.2 Est GFR (Non-Af Amer) 33.8 BUN/Creatinine Ratio 33.3 H Glucose 95 POC Glucose 105 H 119 H Calcium 9.0 Total Creatine Kinase 672 H Aldolase 5.7 04/30/23 04/30/23 15:49 19:38 Sodium Potassium Chloride Carbon Dioxide Anion Gap BUN Creatinine Est Cr Clr Drug Dosing Est GFR ( Amer) Est GFR (Non-Af Amer) BUN/Creatinine Ratio Glucose POC Glucose 94 127 H Calcium Total Creatine Kinase Aldolase PG Care Time/CCT Total # of Minutes Spent Total Time Spent with Patient: Total time spent is greater than 50% in coordination of care (as documented) at patient's floor/unit and/or counseling patient: Coding Level of Care Code 40153 SUB INP/OBS CARE 2/35MIN Diagnoses Cellulitis of left lower extremity L03.116 Acute on chronic systolic (congestive) heart failure I50.23 Polyarticular gout M10.9 Permanent atrial fibrillation I48.21 Atrial fibrillation type: permanent CKD (chronic kidney disease) stage 3, GFR 30-59 ml/min N18.30 Hand pain, right M79.641 Elevated troponin R79.89 Bilateral lower extremity edema R60.0 Generalized weakness R53.1 BPH (benign prostatic hyperplasia) N40.0 Ischemic cardiomyopathy I25.5 Mild cognitive impairment G31.84 Coronary artery disease of [place] artery of [place] heart with stable angina pectoris I25.118 Associated angina: with stable angina Coronary Disease-Associated Artery/Lesion type: [place] artery [place] vs. transplanted heart: [place] heart Moderate obstructive sleep apnea G47.33 Hypothyroidism E03.9 Elevated CPK R74.8 Cerebrovascular disease I67.9 (4) Atrial fibrillation Atrial fibrillation type: permanent Qualified Code(s): I48.21 - Permanent atrial fibrillation (13) CAD (coronary artery disease) Associated angina: with stable angina Coronary Disease-Associated Artery/Lesion type: [place] artery [place] vs. transplanted heart: [place] heart Qualified Code(s): I25.118 - Atherosclerotic heart disease of [place] coronary artery with other forms of angina pectoris
[2023-05-01] MEDS: LEVOTHYROXINE SODIUM 75 MCG TABLET PO SCH (05:33)
[2023-05-01 07:58] LABS: BUN Creatinine Ratio 29.1 (10-20); Calcium 9.4 mg/dl (8.6-10.3); Creatinine Clr Calc Pharmacy 32.1 ml/min; Est GFR (African American) 32.7 ml/min; Est GFR (Non-African American) 28.2 ml/min; Potassium 4.8 mmol/L (3.5-5.1)
[2023-05-01] MEDS: INSULIN ASPART PER UNIT CHARGE SC SCH ×4 (08:12→19:26)
[2023-05-01] MEDS: APIXABAN 5 MG TABLET PO SCH ×2 (08:15→20:16)
[2023-05-01] MEDS: BUMETANIDE 1 MG TAB PO SCH (08:15)
[2023-05-01] MEDS: EMPAGLIFLOZIN 10 MG TAB PO SCH (08:16)
[2023-05-01] MEDS: modafiniL 100 MG TAB PO SCH (08:16)
[2023-05-01] MEDS: SPIRONOLACTONE 25 MG TAB PO SCH (08:17)
[2023-05-01] MEDS: TICAGRELOR 90 MG TAB PO SCH ×2 (08:17→20:16)
[2023-05-01] MEDS: VALSARTAN/SACUBITRIL 26/24MG TAB PO SCH (08:17)
[2023-05-01] MEDS: METOPROLOL SUCC 50MG EXT REL TAB PO SCH (12:05)
[2023-05-01] MEDS: DIGOXIN 0.125 MG TAB PO SCH (17:28)
[2023-05-01] MEDS ORDERED: predniSONE 5 MG TAB PO ONE (18:22)
--- NOTE | 2023-05-01 19:14 | Hospitalist Progress Note ---
Date of Service May 01, 2023 Assessment & Plan (1) Cellulitis of left lower extremity: Plan: Resolved s/p daptomycin IV and cefepime IV early in the stay followed by transition to PO keflex on 04/23 completed 10 days of Rx Local wound care for small ulcerations distal L leg (optifoam, etc) (2) Acute on chronic systolic (congestive) heart failure: Plan: EF 30-35% on most recent echo 04/09/23 follows with [facility] remains compensated Cr tiburcio overnight - hold bumex, hold aldactone, hold Entresto, hold empagliflozin acute decompensation - 2nd to poorly controlled a.fib? 2nd to missing meds and/or dietary indiscretion (in light of memory issues)? probably combination of these factors continue meto succ (3) Polyarticular gout: Plan: acute synovitis of R 3rd/finger MCPs and L 1st MTP x-rays neg for fracture Uric acid 14 consider allopurinol prophylaxis in the future send to rheum post-d/c R hand is better Still with mild L podagra will continue prednisone 5mg daily for another 5-7 days for L podagra (4) Atrial fibrillation: Plan: continue digoxin, metoprolol succ BID (150mg BID), and apixaban BID rates improved with BB increase appreciate Dr Macario's assistance from cardiology (5) CKD (chronic kidney disease) stage 3, GFR 30-59 ml/min: Plan: Cr last six months has ranged from 1.5-2.0 Cr tiburcio overnight - see above Repeat BMP am (6) Hand pain, right: Plan: 2nd gout attack resolved s/p prednisone (7) Elevated troponin: Plan: peak HS trop 96 earlier this admission no ischemic symptoms likely myocardial demand ischemia in setting of #1 (8) Bilateral lower extremity edema: Plan: 2nd decompensated CHF resolved (9) Generalized weakness: Plan: multifactorial - cellulitis, systolic CHF, ?myopathy from statin? resp BioFire panel negative CPK IS improving albeit slowly cont to hold statin repeat CPK tomorrow aldolase returned normal sed rate/crp both mildly elevated prox muscle weakness of legs c/w myopathy rather than myositis send HMG-COa reductase inhibitor ab which, if elevated, is c/w statin-induced myopathy I discussed his care informally with Dr Hensley from rheumatology - Dr Hensley will see him post-d/c in clinic recommends holding statin until he is seen as outpatient pt's daughter asked about [facility] since all of his physicians are [facility] - can do such at their request (10) BPH (benign prostatic hyperplasia): Plan: not on meds for such (11) Ischemic cardiomyopathy: Plan: EF 30-35% with multiple WMAs decompensated CHF this admission requiring diuresis follows with Dr Macario - [facility] (12) Mild cognitive impairment: Plan: 2nd to prior strokes (13) CAD (coronary artery disease): Plan: per records - post PCI to circumflex with 2 stents. stage LAD intervention with CHULA x 2 - 05/2015. repeat intervention to the LAD (overlapping stents) in March of 2017 for very late stent thrombosis. no ischemic symptoms at this time. cont BB cont ticagrelor BID statin on hold due to elevated CPK (14) Moderate obstructive sleep apnea: Plan: intolerant of CPAP cont modafinil (15) Hypothyroidism: Plan: TSH 2 this admission cont synthroid (16) Elevated CPK: Plan: CPK remains elevated on several checks this admission he denies myalgias but does have proximal muscle weakness of hip girdle he is on high-dose statin -- holding CPK is down-trending repeat CPK remains mildly elevated aldolase returned normal see discussion above under "weakness" (17) Cerebrovascular disease: Plan: multiple strokes in the past cont Eliquis for secondary prevention in light of chronic a.fib/flutter Plan son updated by phone this week daughter updated at bedside today dispo - SNF for rehab - this week hopefully Admission and Anticipated Discharge Date Admission Date: April 21, 2023 Subjective a.fib rates <100 no new complaints except mild L great toe pain daughter at bedside questions answered Review of Systems Review of Systems: cv - no chest pain pulm - no dyspnea or cough GI - no abd pain, no N/V gen - eating well Physical Exam Physical Exam: gen - NAD, joking with his daughter mouth - MMM neck - no JVD heart - irregularly irregular, rates <100, s1 s2, no murmur lungs - CTA b/l abd - soft NT ND BS+ ext - no edema, pulses 2+ b/l skin - venous stasis changes b/l legs, no cellulitis either leg musculo - resolved synovitis of fingers of hands; L great toe - scant podagra (mildly tender to palpation) Results & Data Results & Data Vital Signs (Past 12 Hours) Vital Signs Temp Pulse Pulse Pulse Resp BP Pulse Ox 05/01/23 17:28 86 05/01/23 17:09 104/66 05/01/23 16:37 84 05/01/23 15:05 36.3 C L 66 18 87/56 L 97 05/01/23 11:43 36.5 C 89 18 94/60 L 91 05/01/23 09:30 87 89/64 L 05/01/23 07:55 71 05/01/23 07:33 36.3 C L 69 16 98/57 L 96 O2 Del Method 05/01/23 17:28 05/01/23 17:09 05/01/23 16:37 05/01/23 15:05 Room Air 05/01/23 11:43 Room Air 05/01/23 09:30 05/01/23 07:55 05/01/23 07:33 Room Air Laboratory Results Laboratory Results - last 48 hr 04/29/23 04/30/23 04/30/23 06:51 11:23 15:49 Sodium Potassium Chloride Carbon Dioxide Anion Gap BUN Creatinine Est Cr Clr Drug Dosing Est GFR ( Amer) Est GFR (Non-Af Amer) BUN/Creatinine Ratio Glucose POC Glucose 119 H 94 Calcium Total Creatine Kinase Aldolase 5.7 04/30/23 05/01/23 05/01/23 19:38 07:13 07:27 Sodium 135 L Potassium 4.8 Chloride 98 Carbon Dioxide 31 Anion Gap 6 BUN 65 H Creatinine 2.23 H D Est Cr Clr Drug Dosing 32.1 Est GFR ( Amer) 32.7 Est GFR (Non-Af Amer) 28.2 BUN/Creatinine Ratio 29.1 H Glucose 101 H POC Glucose 127 H 111 H Calcium 9.4 Total Creatine Kinase Aldolase 05/01/23 05/01/23 10:59 16:04 Sodium Potassium Chloride Carbon Dioxide Anion Gap BUN Creatinine Est Cr Clr Drug Dosing Est GFR ( Amer) Est GFR (Non-Af Amer) BUN/Creatinine Ratio Glucose POC Glucose 146 H 107 H Calcium Total Creatine Kinase Aldolase PG Care Time/CCT Total # of Minutes Spent Total Time Spent with Patient: Total time spent is greater than 50% in coordination of care (as documented) at patient's floor/unit and/or counseling patient: Coding Level of Care Code 25982 SUB INP/OBS CARE MIN Diagnoses Cellulitis of left lower extremity L03.116 Acute on chronic systolic (congestive) heart failure I50.23 Polyarticular gout M10.9 Permanent atrial fibrillation I48.21 Atrial fibrillation type: permanent CKD (chronic kidney disease) stage 3, GFR 30-59 ml/min N18.30 Hand pain, right M79.641 Elevated troponin R79.89 Bilateral lower extremity edema R60.0 Generalized weakness R53.1 BPH (benign prostatic hyperplasia) N40.0 Ischemic cardiomyopathy I25.5 Mild cognitive impairment G31.84 Coronary artery disease of [place] artery of [place] heart with stable angina pectoris I25.118 Associated angina: with stable angina Coronary Disease-Associated Artery/Lesion type: [place] artery [place] vs. transplanted heart: [place] heart Moderate obstructive sleep apnea G47.33 Hypothyroidism E03.9 Elevated CPK R74.8 Cerebrovascular disease I67.9 (4) Atrial fibrillation Atrial fibrillation type: permanent Qualified Code(s): I48.21 - Permanent atrial fibrillation (13) CAD (coronary artery disease) Associated angina: with stable angina Coronary Disease-Associated Artery/Lesion type: [place] artery [place] vs. transplanted heart: [place] heart Qualified Code(s): I25.118 - Atherosclerotic heart disease of [place] coronary artery with other forms of angina pectoris
[2023-05-01] MEDS: METOPROLOL SUCC 25MG EXT REL TAB PO SCH (20:15)
[2023-05-02] MEDS: LEVOTHYROXINE SODIUM 75 MCG TABLET PO SCH (05:36)
[2023-05-02 07:00] LABS: BUN Creatinine Ratio 33.3 (10-20); Calcium 9.1 mg/dl (8.6-10.3); Creatinine Clr Calc Pharmacy 39.3 ml/min; Est GFR (African American) 41.5 ml/min; Est GFR (Non-African American) 35.8 ml/min; Potassium 4.2 mmol/L (3.5-5.1)
[2023-05-02] MEDS: INSULIN ASPART PER UNIT CHARGE SC SCH ×4 (09:25→20:33)
[2023-05-02] MEDS: APIXABAN 5 MG TABLET PO SCH ×2 (09:26→20:33)
[2023-05-02] MEDS: BUMETANIDE 1 MG TAB PO SCH (09:26)
[2023-05-02] MEDS: modafiniL 100 MG TAB PO SCH (09:27)
[2023-05-02] MEDS: METOPROLOL SUCC 25MG EXT REL TAB PO SCH ×2 (09:27→20:32)
[2023-05-02] MEDS: TICAGRELOR 90 MG TAB PO SCH ×2 (09:28→20:33)
[2023-05-02] MEDS: predniSONE 5 MG TAB PO SCH (09:28)
[2023-05-02] MEDS: DIGOXIN 0.125 MG TAB PO SCH (17:01)
--- NOTE | 2023-05-02 20:12 | Hospitalist Progress Note ---
Date of Service May 02, 2023 Assessment & Plan (1) Cellulitis of left lower extremity: Plan: Resolved s/p daptomycin IV and cefepime IV early in the stay followed by transition to PO keflex on 04/23 completed 10 days of Rx Local wound care for small ulcerations distal L leg (optifoam, etc) (2) Acute on chronic systolic (congestive) heart failure: Plan: EF 30-35% on most recent echo 04/09/23 follows with [facility] remains compensated Cr tiburcio overnight 2 days ago but has improved resume bumex today, but cont to hold aldactone, Entresto can resume empagliflozin acute decompensation - 2nd to poorly controlled a.fib? 2nd to missing meds and/or dietary indiscretion (in light of memory issues)? probably combination of these factors continue meto succ (3) Polyarticular gout: Plan: resolved acute synovitis of R 3rd/finger MCPs and L 1st MTP x-rays neg for fracture Uric acid 14 consider allopurinol prophylaxis in the future send to rheum post-d/c R hand is better Still with mild L podagra will continue prednisone 5mg daily for another 2-3 days then stop refer to rheum (pt's daughter requests [facility]) post-d/c for gout management (4) Atrial fibrillation: Plan: continue digoxin, metoprolol succ BID (150mg BID), and apixaban BID rates improved with BB increase appreciate Dr Macario's assistance from cardiology (5) CKD (chronic kidney disease) stage 3, GFR 30-59 ml/min: Plan: Cr last six months has ranged from 1.5-2.0 Cr tiburcio but now trending down - see above Repeat BMP am (6) Hand pain, right: Plan: 2nd gout attack resolved s/p prednisone (7) Elevated troponin: Plan: peak HS trop 96 earlier this admission no ischemic symptoms likely myocardial demand ischemia in setting of #1 (8) Bilateral lower extremity edema: Plan: 2nd decompensated CHF resolved (9) Generalized weakness: Plan: multifactorial - cellulitis, systolic CHF, ?myopathy from statin? resp BioFire panel negative CPK IS improving albeit slowly cont to hold statin repeat CPK today finally normal aldolase returned normal sed rate/crp both mildly elevated prox muscle weakness of legs c/w myopathy rather than myositis send HMG-COa reductase inhibitor ab which, if elevated, is c/w statin-induced myopathy I discussed his care informally with Dr Hensley from rheumatology recommends holding statin until he is seen as outpatient pt's daughter asked about [facility] since all of his physicians are [facility] - can do such at their request (10) BPH (benign prostatic hyperplasia): Plan: not on meds for such (11) Ischemic cardiomyopathy: Plan: EF 30-35% with multiple WMAs decompensated CHF this admission requiring diuresis follows with Dr Macario - [facility] (12) Mild cognitive impairment: Plan: 2nd to prior strokes (13) CAD (coronary artery disease): Plan: per records - post PCI to circumflex with 2 stents. stage LAD intervention with CHULA x 2 - 05/2015. repeat intervention to the LAD (overlapping stents) in March of 2017 for very late stent thrombosis. no ischemic symptoms at this time. cont BB cont ticagrelor BID statin on hold due to elevated CPK (14) Moderate obstructive sleep apnea: Plan: intolerant of CPAP cont modafinil (15) Hypothyroidism: Plan: TSH 2 this admission cont synthroid (16) Elevated CPK: Plan: CPK remains elevated on several checks this admission he denies myalgias but does have proximal muscle weakness of hip girdle he is on high-dose statin -- holding CPK has normalized today see discussion above under "weakness" (17) Cerebrovascular disease: Plan: multiple strokes in the past cont Eliquis for secondary prevention in light of chronic a.fib/flutter Plan son updated by phone this past week daughter updated at bedside yesterday dispo - SNF for rehab - this week hopefully Admission and Anticipated Discharge Date Admission Date: April 21, 2023 Subjective no new issues a.fib rates <100 laying in bed listening to music denies any complaints feels good "When am I getting out of here?" Review of Systems Review of Systems: cv - no chest pain pulm - no dyspnea GI - no abd pain; moving bowels; no N/V Physical Exam Physical Exam: gen - NAD, looks same as previous mouth - MMM neck - no JVD heart - irregularly irregular, rates <100, s1 s2, no murmur lungs - CTA b/l abd - soft NT ND BS+ ext - no edema, pulses 2+ b/l skin - venous stasis changes b/l legs, no cellulitis either leg musculo - resolved synovitis of fingers of hands; L great toe - podagra resolved (not tender to palpation today) Results & Data Results & Data Vital Signs (Past 12 Hours) Vital Signs Temp Pulse Pulse Resp BP BP Pulse Ox 05/02/23 18:51 36.4 C L 75 19 114/75 96 05/02/23 17:11 64 19 99/58 L 97 05/02/23 17:01 97 H 05/02/23 15:24 101 H 05/02/23 12:33 36.4 C L 64 17 112/71 99 O2 Del Method 05/02/23 18:51 Room Air 05/02/23 17:11 Room Air 05/02/23 17:01 05/02/23 15:24 05/02/23 12:33 Room Air Laboratory Results Laboratory Results - last 24 hr 05/02/23 05/02/23 05/02/23 06:24 07:04 11:30 Sodium 135 L Potassium 4.2 Chloride 98 Carbon Dioxide 29 Anion Gap 8 BUN 61 H Creatinine 1.83 H D Est Cr Clr Drug Dosing 39.3 Est GFR ( Amer) 41.5 Est GFR (Non-Af Amer) 35.8 BUN/Creatinine Ratio 33.3 H Glucose 98 POC Glucose 127 H 132 H Calcium 9.1 Total Creatine Kinase 109 05/02/23 05/02/23 16:33 19:58 Sodium Potassium Chloride Carbon Dioxide Anion Gap BUN Creatinine Est Cr Clr Drug Dosing Est GFR ( Amer) Est GFR (Non-Af Amer) BUN/Creatinine Ratio Glucose POC Glucose 153 H 99 Calcium Total Creatine Kinase PG Care Time/CCT Total # of Minutes Spent Total Time Spent with Patient: Total time spent is greater than 50% in coordination of care (as documented) at patient's floor/unit and/or counseling patient: Coding Level of Care Code 53438 SUB INP/OBS CARE 2/35MIN Diagnoses Cellulitis of left lower extremity L03.116 Acute on chronic systolic (congestive) heart failure I50.23 Polyarticular gout M10.9 Permanent atrial fibrillation I48.21 Atrial fibrillation type: permanent CKD (chronic kidney disease) stage 3, GFR 30-59 ml/min N18.30 Hand pain, right M79.641 Elevated troponin R79.89 Bilateral lower extremity edema R60.0 Generalized weakness R53.1 BPH (benign prostatic hyperplasia) N40.0 Ischemic cardiomyopathy I25.5 Mild cognitive impairment G31.84 Coronary artery disease of [place] artery of [place] heart with stable angina pectoris I25.118 Associated angina: with stable angina Coronary Disease-Associated Artery/Lesion type: [place] artery [place] vs. transplanted heart: [place] heart Moderate obstructive sleep apnea G47.33 Hypothyroidism E03.9 Elevated CPK R74.8 Cerebrovascular disease I67.9 (4) Atrial fibrillation Atrial fibrillation type: permanent Qualified Code(s): I48.21 - Permanent atrial fibrillation (13) CAD (coronary artery disease) Associated angina: with stable angina Coronary Disease-Associated Artery/Lesion type: [place] artery [place] vs. transplanted heart: [place] heart Qualified Code(s): I25.118 - Atherosclerotic heart disease of [place] coronary artery with other forms of angina pectoris
[2023-05-03] MEDS: LEVOTHYROXINE SODIUM 75 MCG TABLET PO SCH (05:53)
[2023-05-03 08:10] LABS: BUN Creatinine Ratio 29.4 (10-20); Calcium 9.5 mg/dl (8.6-10.3); Creatinine Clr Calc Pharmacy 37.1 ml/min; Est GFR (African American) 38.7 ml/min; Est GFR (Non-African American) 33.4 ml/min; Potassium 4.5 mmol/L (3.5-5.1)
[2023-05-03] MEDS: INSULIN ASPART PER UNIT CHARGE SC SCH ×4 (08:28→19:56)
[2023-05-03] MEDS: APIXABAN 5 MG TABLET PO SCH ×2 (08:29→20:22)
[2023-05-03] MEDS: BUMETANIDE 1 MG TAB PO SCH (08:29)
[2023-05-03] MEDS: METOPROLOL SUCC 25MG EXT REL TAB PO SCH ×2 (08:30→20:21)
[2023-05-03] MEDS: TICAGRELOR 90 MG TAB PO SCH ×2 (08:30→20:22)
[2023-05-03] MEDS: modafiniL 100 MG TAB PO SCH (08:30)
[2023-05-03] MEDS: predniSONE 5 MG TAB PO SCH (08:30)
[2023-05-03] MEDS: DIGOXIN 0.125 MG TAB PO SCH (16:55)
--- NOTE | 2023-05-03 20:19 | Hospitalist Progress Note ---
Date of Service May 03, 2023 Assessment & Plan (1) Cellulitis of left lower extremity: Plan: Resolved s/p daptomycin IV and cefepime IV early in the stay followed by transition to PO keflex on 04/23 completed 10 days of Rx small ulcerations distal L leg are resolved (2) Acute on chronic systolic (congestive) heart failure: Plan: Presented in acute decompensated and was diuresed earlier in the stay cause of decompensation? uncontrolled a.fib? dietary indiscretion? med noncompliance? combo of factors? EF 30-35% on most recent echo 04/09/23 follows with [facility] Cardiology has been compensated the last few days Creatinine increased 2-3 days ago - multiple meds were held due to such (bumex, aldactone, Entresto) Have resumed bumex but continue to hold aldactone and Entresto Can likely resume 1 or both meds tomorrow if Creatinine is stable Continue meto succ BID Continue empagliflozin (3) Polyarticular gout: Plan: resolved acute synovitis of R 3rd/finger MCPs and L 1st MTP x-rays neg for fracture Uric acid 14 consider allopurinol prophylaxis in the future send to rheumatology post-d/c R hand is better L foot podagra nearly resolved will continue prednisone 5mg daily for another 2 days then stop refer to rheum (pt's daughter requests [facility]) post-d/c for gout management (4) Atrial fibrillation: Plan: continue digoxin, metoprolol succ BID, and apixaban BID had poor rates control early in the stay metoprolol succ was increased to 150mg BID but later had hypotension and dose of metoprolol succ had to be reduced he is now on metoprolol succ 75mg BID with adequate rate control appreciate Dr Macario's assistance from cardiology (5) CKD (chronic kidney disease) stage 3, GFR 30-59 ml/min: Plan: Cr last six months has ranged from 1.5-2.0 Cr tiburcio but now trending down - see above Repeat BMP am (6) Hand pain, right: Plan: 2nd gout attack resolved s/p prednisone (7) Elevated troponin: Plan: peak HS trop 96 earlier this admission no ischemic symptoms likely myocardial demand ischemia in setting of #1 (8) Bilateral lower extremity edema: Plan: 2nd decompensated CHF -- resolved (9) Generalized weakness: Plan: multifactorial - cellulitis, systolic CHF, ?myopathy from statin? resp BioFire panel negative CPK was >1000 but slowly decreased and returned to normal statin has been held during this time period aldolase returned normal sed rate/crp both mildly elevated prox muscle weakness of legs c/w myopathy rather than myositis sent HMG-COa reductase inhibitor ab which, if elevated, is c/w statin-induced myopathy I discussed his care informally with Dr Hensley from [facility] rheumatology recommends holding statin until he is seen as outpatient pt's daughter asked about [facility] since all of his physicians are [facility] - can do such at their request (10) BPH (benign prostatic hyperplasia): Plan: not on meds for such voiding w/o difficulty (11) Ischemic cardiomyopathy: Plan: EF 30-35% with multiple WMAs decompensated CHF this admission requiring diuresis early in the hospitalization follows with Dr Macario - [facility] Cardiology (12) Mild cognitive impairment: Plan: 2nd to prior strokes (13) CAD (coronary artery disease): Plan: per records - post PCI to circumflex with 2 stents. stage LAD intervention with CHULA x 2 - 05/2015. repeat intervention to the LAD (overlapping stents) in March of 2017 for very late stent thrombosis. no ischemic symptoms at this time. cont BB cont ticagrelor BID statin on hold due to elevated CPK earlier in the stay (14) Moderate obstructive sleep apnea: Plan: intolerant of CPAP cont modafinil (15) Hypothyroidism: Plan: TSH 2 this admission cont synthroid (16) Elevated CPK: Plan: CPK was >1000 early in the stay he denied myalgias but has had proximal muscle weakness of hip girdle he was on high-dose statin at time of admission - now on hold CPK finally normalized see discussion above under "weakness" (17) Cerebrovascular disease: Plan: multiple strokes in the past cont Eliquis for secondary prevention in light of chronic a.fib/flutter Plan son updated by phone this evening daughter updated at bedside over the weekend dispo - SNF for rehab - this week hopefully PT'S INSURANCE DENIED INPATIENT REHAB; PERFORED PEER TO PEER - DENIAL UPHELD PATIENT/FAMILY AWARE OF DENIAL Admission and Anticipated Discharge Date Admission Date: April 21, 2023 Subjective tele with rate controlled a.fib no issues today feels well eating well anxious to get out of the hospital - irritated that his insurance denied acute inpatient rehab I completed a peer to peer telephone call with the pt's insurance company this am unfortunately after about 10+ minutes discussion with medical office receptionist the denial for inpatient rehab was upheld was told that he didn't meet medical complexity to require a physician seeing him multiple times each week I also spoke with the pt's son by phone late in the day explained the insurance company's decision about rehab and that we are now pursuing rehab at local [facility] Review of Systems Review of Systems: cv - no chest pain pulm - no dyspnea at rest; no cough musculo - no pain in right hand; pain L first toe - slight GI - no abd pain or N/V Physical Exam Physical Exam: gen - NAD, looks same as previous, laying in bed listening to music mouth - MMM neck - no JVD heart - irregularly irregular, rates <100, s1 s2, no murmur lungs - CTA b/l abd - soft NT ND BS+ ext - no edema, pulses 2+ b/l skin - venous stasis changes b/l legs, no cellulitis either leg; prior ulcer distal left lazo (laterally) has healed musculo - resolved synovitis of fingers of hands; L great toe - podagra resolved Results & Data Results & Data Vital Signs (Past 12 Hours) Vital Signs Temp Pulse Pulse Resp BP BP Pulse Ox 05/03/23 19:05 36.8 C 80 18 104/56 L 96 05/03/23 16:55 95 H 05/03/23 15:48 92 H 05/03/23 15:26 36.3 C L 66 19 169/67 H 97 05/03/23 10:05 36.3 C L 63 19 104/55 L 97 O2 Del Method 05/03/23 19:05 Room Air 05/03/23 16:55 05/03/23 15:48 05/03/23 15:26 Room Air 05/03/23 10:05 Room Air Laboratory Results Laboratory Results - last 24 hr 05/03/23 05/03/23 05/03/23 07:03 07:23 11:09 Sodium 136 Potassium 4.5 Chloride 98 Carbon Dioxide 31 Anion Gap 7 BUN 57 H Creatinine 1.94 H Est Cr Clr Drug Dosing 37.1 Est GFR ( Amer) 38.7 Est GFR (Non-Af Amer) 33.4 BUN/Creatinine Ratio 29.4 H Glucose 97 POC Glucose 113 H 151 H Calcium 9.5 05/03/23 05/03/23 16:13 19:55 Sodium Potassium Chloride Carbon Dioxide Anion Gap BUN Creatinine Est Cr Clr Drug Dosing Est GFR ( Amer) Est GFR (Non-Af Amer) BUN/Creatinine Ratio Glucose POC Glucose 142 H 108 H Calcium PG Care Time/CCT Total # of Minutes Spent Total Time Spent with Patient: Total time spent is greater than 50% in coordination of care (as documented) at patient's floor/unit and/or counseling patient: Coding Level of Care Code 05856 SUB INP/OBS CARE 350MIN Diagnoses Cellulitis of left lower extremity L03.116 Acute on chronic systolic (congestive) heart failure I50.23 Polyarticular gout M10.9 Permanent atrial fibrillation I48.21 Atrial fibrillation type: permanent CKD (chronic kidney disease) stage 3, GFR 30-59 ml/min N18.30 Hand pain, right M79.641 Elevated troponin R79.89 Bilateral lower extremity edema R60.0 Generalized weakness R53.1 BPH (benign prostatic hyperplasia) N40.0 Ischemic cardiomyopathy I25.5 Mild cognitive impairment G31.84 Coronary artery disease of [place] artery of [place] heart with stable angina pectoris I25.118 Associated angina: with stable angina Coronary Disease-Associated Artery/Lesion type: [place] artery [place] vs. transplanted heart: [place] heart Moderate obstructive sleep apnea G47.33 Hypothyroidism E03.9 Elevated CPK R74.8 Cerebrovascular disease I67.9 (4) Atrial fibrillation Atrial fibrillation type: permanent Qualified Code(s): I48.21 - Permanent atrial fibrillation (13) CAD (coronary artery disease) Associated angina: with stable angina Coronary Disease-Associated Artery/Lesion type: [place] artery [place] vs. transplanted heart: [place] heart Qualified Code(s): I25.118 - Atherosclerotic heart disease of [place] coronary artery with other forms of angina pectoris
[2023-05-04] MEDS: LEVOTHYROXINE SODIUM 75 MCG TABLET PO SCH (05:44)
[2023-05-04 07:57] LABS: BUN Creatinine Ratio 30.7 (10-20); Calcium 9.4 mg/dl (8.6-10.3); Creatinine Clr Calc Pharmacy 39.7 ml/min; Est GFR (African American) 42.6 ml/min; Est GFR (Non-African American) 36.8 ml/min; Potassium 3.6 mmol/L (3.5-5.1)
[2023-05-04] MEDS: INSULIN ASPART PER UNIT CHARGE SC SCH ×4 (08:31→20:21)
[2023-05-04] MEDS: APIXABAN 5 MG TABLET PO SCH ×2 (08:39→20:21)
[2023-05-04] MEDS: TICAGRELOR 90 MG TAB PO SCH ×2 (08:39→20:21)
[2023-05-04] MEDS: METOPROLOL SUCC 25MG EXT REL TAB PO SCH ×2 (08:40→21:47)
[2023-05-04] MEDS: predniSONE 5 MG TAB PO SCH (08:40)
[2023-05-04] MEDS: BUMETANIDE 1 MG TAB PO SCH (08:40)
[2023-05-04] MEDS: EMPAGLIFLOZIN 10 MG TAB PO SCH (08:40)
[2023-05-04] MEDS: modafiniL 100 MG TAB PO SCH (08:42)
[2023-05-04] MEDS: DIGOXIN 0.125 MG TAB PO SCH (17:37)
--- NOTE | 2023-05-04 17:55 | Hospitalist Progress Note ---
Date of Service May 04, 2023 Assessment & Plan (1) Cellulitis of left lower extremity: Plan: Resolved s/p daptomycin IV and cefepime IV early in the stay followed by transition to PO keflex on 04/23 completed 10 days of Rx small ulcerations distal L leg are resolved (2) Acute on chronic systolic (congestive) heart failure: Plan: Presented in acute decompensated and was diuresed earlier in the stay -was not taking his medications at home despite reminders from his children EF 30-35% on most recent echo 04/09/23 [facility] with [facility] Cardiology has been compensated the last few days, euvolemic to dry, weight down from 105-->92 kg this stay Creatinine increased 2-3 days ago - multiple meds were held due to such (bumex, aldactone, Entresto) Have resumed bumex, resume entresto. resume aldactone later if tolerating Continue meto succ BID Continue empagliflozin (3) Polyarticular gout: Plan: resolved acute synovitis of R 3rd/finger MCPs and L 1st MTP x-rays neg for fracture Uric acid 14 consider allopurinol prophylaxis in the future R hand resolved L foot podagra resolved will continue prednisone 5mg daily for another 1 days then stop refer to rheum (pt's daughter requests [facility]) post-d/c for gout management (4) Atrial fibrillation: Plan: continue digoxin, metoprolol succ BID, and apixaban BID had poor rates control early in the stay metoprolol succ was increased to 150mg BID but later had hypotension and dose of metoprolol succ had to be reduced he is now on metoprolol succ 75mg BID with adequate rate control appreciate Dr Macario's assistance from cardiology (5) CKD (chronic kidney disease) stage 3, GFR 30-59 ml/min: Plan: Cr last six months has ranged from 1.5-2.0 Cr tiburcio but now trending down - see above -Cr at recent baseline today (6) Hand pain, right: Plan: 2nd gout attack resolved s/p prednisone (7) Elevated troponin: Plan: peak HS trop 96 earlier this admission no ischemic symptoms likely myocardial demand ischemia in setting of #1 (8) Bilateral lower extremity edema: Plan: 2nd decompensated CHF -- resolved (9) Generalized weakness: Plan: multifactorial - cellulitis, systolic CHF, ?myopathy from statin? resp BioFire panel negative CPK was >1000 but slowly decreased and returned to normal statin has been held during this time period aldolase returned normal sed rate/crp both mildly elevated prox muscle weakness of legs c/w myopathy rather than myositis sent HMG-COa reductase inhibitor ab which, if elevated, is c/w statin-induced myopathy I discussed his care informally with Dr Hensley from [facility] rheumatology recommends holding statin until he is seen as outpatient pt's daughter asked about [facility] since all of his physicians are [facility] - can do such at their request (10) BPH (benign prostatic hyperplasia): Plan: not on meds for such voiding w/o difficulty (11) Ischemic cardiomyopathy: Plan: EF 30-35% with multiple WMAs decompensated CHF this admission requiring diuresis early in the hospitalization follows with Dr Macario - [facility] [place] Cardiology (12) Mild cognitive impairment: Plan: 2nd to prior strokes (13) CAD (coronary artery disease): Plan: per records - post PCI to circumflex with 2 stents. stage LAD intervention with CHULA x 2 - 05/2015. repeat intervention to the LAD (overlapping stents) in March of 2017 for very late stent thrombosis. no ischemic symptoms at this time. cont BB cont ticagrelor BID statin on hold due to elevated CPK earlier in the stay (14) Moderate obstructive sleep apnea: Plan: intolerant of CPAP cont modafinil (15) Hypothyroidism: Plan: TSH 2 this admission cont synthroid (16) Elevated CPK: Plan: CPK was >1000 early in the stay he denied myalgias but has had proximal muscle weakness of hip girdle he was on high-dose statin at time of admission - now on hold CPK finally normalized see discussion above under "weakness" (17) Cerebrovascular disease: Plan: multiple strokes in the past cont Eliquis for secondary prevention in light of chronic a.fib/flutter Plan son updated by phone 05/03 daughter updated at bedside over the weekend dispo - SNF for rehab - this week hopefully Admission and Anticipated Discharge Date Admission Date: April 21, 2023 Subjective Doing ok, much better than a week ago. R hand/L foot pain resolved, edema resolved, no dyspnea or chest pain. Physical Exam 2 Physical Exam: PHYSICAL EXAMINATION Last 24h vital signs reviewed, see documentation in flowsheet General: Awake laying in bed, looks improved HEENT: Normocephalic, atraumatic, pupils round and equal, sclerae anicteric, no conjunctival injection, moist mucus membranes Lungs: Normal respiratory effort. CTAB no rrw Heart: reg no mrg no JVD Abdomen: Soft, nondistended. Bowel sounds present. Extremities: Warm, dry, well-perfused. mild 1+ lower extremity edema, much improved past week R MCPs and L 1st MTP no erythema or tenderness Neuro: Alert and oriented x self hospital basic situation, vague historian persists but recognizes me, face symmetric, moves 4 extremities well Psych: Normal affect and behavior Results & Data Results & Data Vital Signs (Past 12 Hours) Vital Signs Temp Pulse Pulse Resp BP Pulse Ox O2 Del Method 05/04/23 16:27 36.4 C L 83 20 107/70 93 Room Air 05/04/23 14:00 87 05/04/23 10:30 36.4 C L 66 18 126/73 97 Room Air 05/04/23 07:30 85 05/04/23 07:09 36.3 C L 70 19 123/88 96 Room Air Laboratory Results 04/27/23 06:42 05/04/23 07:03 PG Care Time/CCT Total # of Minutes Spent Total Time Spent with Patient: Total time spent is greater than 50% in coordination of care (as documented) at patient's floor/unit and/or counseling patient: Coding Level of Care Code 76225 SUB INP/OBS CARE 2/35MIN Diagnoses Cellulitis of left lower extremity L03.116 Acute on chronic systolic (congestive) heart failure I50.23 Polyarticular gout M10.9 Permanent atrial fibrillation I48.21 Atrial fibrillation type: permanent CKD (chronic kidney disease) stage 3, GFR 30-59 ml/min N18.30 Hand pain, right M79.641 Elevated troponin R79.89 Bilateral lower extremity edema R60.0 Generalized weakness R53.1 BPH (benign prostatic hyperplasia) N40.0 Ischemic cardiomyopathy I25.5 Mild cognitive impairment G31.84 Coronary artery disease of [place] artery of [place] heart with stable angina pectoris I25.118 Coronary Disease-Associated Artery/Lesion type: [place] artery [place] vs. transplanted heart: [place] heart Associated angina: with stable angina Moderate obstructive sleep apnea G47.33 Hypothyroidism E03.9 Elevated CPK R74.8 Cerebrovascular disease I67.9 (4) Atrial fibrillation Atrial fibrillation type: permanent Qualified Code(s): I48.21 - Permanent atrial fibrillation (13) CAD (coronary artery disease) Coronary Disease-Associated Artery/Lesion type: [place] artery [place] vs. transplanted heart: [place] heart Associated angina: with stable angina Qualified Code(s): I25.118 - Atherosclerotic heart disease of [place] coronary artery with other forms of angina pectoris
[2023-05-05] MEDS: LEVOTHYROXINE SODIUM 75 MCG TABLET PO SCH (05:32)
[2023-05-05] MEDS: predniSONE 5 MG TAB PO SCH (08:43)
[2023-05-05] MEDS: METOPROLOL SUCC 25MG EXT REL TAB PO SCH ×2 (08:43→20:17)
[2023-05-05] MEDS: BUMETANIDE 1 MG TAB PO SCH (08:43)
[2023-05-05] MEDS: APIXABAN 5 MG TABLET PO SCH ×2 (08:43→20:17)
[2023-05-05] MEDS: TICAGRELOR 90 MG TAB PO SCH ×2 (08:43→20:17)
[2023-05-05] MEDS: EMPAGLIFLOZIN 10 MG TAB PO SCH (08:44)
[2023-05-05] MEDS: INSULIN ASPART PER UNIT CHARGE SC SCH ×4 (08:45→21:47)
[2023-05-05] MEDS: modafiniL 100 MG TAB PO SCH (08:51)
[2023-05-05] MEDS: VALSARTAN/SACUBITRIL 26/24MG TAB PO SCH ×2 (09:25→20:17)
[2023-05-05] MEDS: DIGOXIN 0.125 MG TAB PO SCH (16:51)
--- NOTE | 2023-05-05 18:20 | Hospitalist Progress Note ---
Date of Service May 05, 2023 Assessment & Plan (1) Cellulitis of left lower extremity: Plan: Resolved s/p daptomycin IV and cefepime IV early in the stay followed by transition to PO keflex on 04/23 completed 10 days of Rx small ulcerations distal L leg are resolved (2) Acute on chronic systolic (congestive) heart failure: Plan: Presented in acute decompensated and was diuresed earlier in the stay -was not taking his medications at home despite reminders from his children EF 30-35% on most recent echo 04/09/23 follows with [facility] Cardiology has been compensated the last few days, euvolemic to dry, weight down from 105-->92 kg this stay Creatinine increased 2-3 days ago - multiple meds were held due to such (bumex, aldactone, Entresto) now that he is getting meds consistently and on empaglifozin diuretics doses need to be reduced resumed entresto resume bumex decreased to 1 mg daily and spironolactone decreased to 12.5 mg daily check BMP in 48h follow volume status edema and weight ok to stop telemetry and transfer to med/surg, awaiting placement at this time Continue meto succ BID Continue empagliflozin (3) Polyarticular gout: Plan: resolved acute synovitis of R 3rd/finger MCPs and L 1st MTP x-rays neg for fracture Uric acid 14 consider allopurinol prophylaxis in the future R hand resolved L foot podagra resolved will continue prednisone 5mg daily for another 1 days then stop refer to rheum (pt's daughter requests [facility]) post-d/c for gout management (4) Atrial fibrillation: Plan: continue digoxin, metoprolol succ BID, and apixaban BID had poor rates control early in the stay metoprolol succ was increased to 150mg BID but later had hypotension and dose of metoprolol succ had to be reduced he is now on metoprolol succ 75mg BID with good rate control appreciate Dr Macario's assistance from cardiology (5) CKD (chronic kidney disease) stage 3, GFR 30-59 ml/min: Plan: Cr last six months has ranged from 1.5-2.0 Cr tiburcio but now trending down - see above -Cr at recent baseline 05/05 -check BMP in 48h (6) Hand pain, right: Plan: 2nd gout attack resolved s/p prednisone (7) Elevated troponin: Plan: peak HS trop 96 earlier this admission no ischemic symptoms likely myocardial demand ischemia in setting of #1 (8) Bilateral lower extremity edema: Plan: 2nd decompensated CHF -- resolved (9) Generalized weakness: Plan: multifactorial - cellulitis, systolic CHF, ?myopathy from statin? resp BioFire panel negative CPK was >1000 but slowly decreased and returned to normal statin has been held during this time period aldolase returned normal sed rate/crp both mildly elevated prox muscle weakness of legs c/w myopathy rather than myositis sent HMG-COa reductase inhibitor ab which, if elevated, is c/w statin-induced myopathy - pending, sendout I discussed his care informally with Dr Hensley from [facility] rheumatology recommends holding statin until he is seen as outpatient pt's daughter asked about [facility] since all of his physicians are [facility] - can do such at their request (10) BPH (benign prostatic hyperplasia): Plan: not on meds for such voiding w/o difficulty (11) Ischemic cardiomyopathy: Plan: EF 30-35% with multiple WMAs decompensated CHF this admission requiring diuresis early in the hospitalization follows with Dr Macario - [facility] Cardiology (12) Mild cognitive impairment: Plan: 2nd to prior strokes (13) CAD (coronary artery disease): Plan: per records - post PCI to circumflex with 2 stents. stage LAD intervention with CHULA x 2 - 05/2015. repeat intervention to the LAD (overlapping stents) in March of 2017 for very late stent thrombosis. no ischemic symptoms at this time. cont BB cont ticagrelor BID statin on hold due to elevated CPK earlier in the stay (14) Moderate obstructive sleep apnea: Plan: intolerant of CPAP cont modafinil (15) Hypothyroidism: Plan: TSH 2 this admission cont synthroid (16) Elevated CPK: Plan: CPK was >1000 early in the stay he denied myalgias but has had proximal muscle weakness of hip girdle he was on high-dose statin at time of admission - now on hold CPK finally normalized see discussion above under "weakness" (17) Cerebrovascular disease: Plan: multiple strokes in the past cont Eliquis for secondary prevention in light of chronic a.fib/flutter Plan son updated by phone 05/03 daughter updated at bedside over the weekend dispo - SNF for rehab - this week hopefully Admission and Anticipated Discharge Date Admission Date: April 21, 2023 Subjective Doing well, no shortness of breath or chest pain, no edema. No joint pains Physical Exam 2 Physical Exam: PHYSICAL EXAMINATION Last 24h vital signs reviewed, see documentation in flowsheet General: awake sitting in bed HEENT: Normocephalic, atraumatic, pupils round and equal, sclerae anicteric, no conjunctival injection, moist mucus membranes Lungs: ctab no rrw Heart: no jvd reg no mrg Abdomen: Soft, nondistended. Bowel sounds present. Extremities: Warm, dry, well-perfused. minimal woody lower extremity edema R MCPs and L 1st MTP no erythema or tenderness Neuro: Alert and oriented x self hospital basic situation, vague historian, face symmetric, moves 4 extremities well Psych: Normal affect and behavior Results & Data Results & Data Vital Signs (Past 12 Hours) Vital Signs Temp Pulse Resp BP BP Pulse Ox O2 Del Method 05/05/23 15:39 68 20 110/73 96 Room Air 05/05/23 11:01 36.6 C 70 22 127/83 95 Room Air 05/05/23 08:45 Room Air 05/05/23 06:57 36.5 C 68 22 157/90 H 94 Room Air Laboratory Results 04/27/23 06:42 05/04/23 07:03 PG Care Time/CCT Total # of Minutes Spent Total Time Spent with Patient: Total time spent is greater than 50% in coordination of care (as documented) at patient's floor/unit and/or counseling patient: Coding Level of Care Code 48693 SUB INP/OBS CARE 2/35MIN Diagnoses Cellulitis of left lower extremity L03.116 Acute on chronic systolic (congestive) heart failure I50.23 Polyarticular gout M10.9 Permanent atrial fibrillation I48.21 Atrial fibrillation type: permanent CKD (chronic kidney disease) stage 3, GFR 30-59 ml/min N18.30 Hand pain, right M79.641 Elevated troponin R79.89 Bilateral lower extremity edema R60.0 Generalized weakness R53.1 BPH (benign prostatic hyperplasia) N40.0 Ischemic cardiomyopathy I25.5 Mild cognitive impairment G31.84 Coronary artery disease of [place] artery of [place] heart with stable angina pectoris I25.118 Coronary Disease-Associated Artery/Lesion type: [place] artery [place] vs. transplanted heart: [place] heart Associated angina: with stable angina Moderate obstructive sleep apnea G47.33 Hypothyroidism E03.9 Elevated CPK R74.8 Cerebrovascular disease I67.9 (4) Atrial fibrillation Atrial fibrillation type: permanent Qualified Code(s): I48.21 - Permanent atrial fibrillation (13) CAD (coronary artery disease) Coronary Disease-Associated Artery/Lesion type: [place] artery [place] vs. transplanted heart: [place] heart Associated angina: with stable angina Qualified Code(s): I25.118 - Atherosclerotic heart disease of [place] coronary artery with other forms of angina pectoris
[2023-05-06] MEDS: LEVOTHYROXINE SODIUM 75 MCG TABLET PO SCH (06:20)
[2023-05-06] MEDS: INSULIN ASPART PER UNIT CHARGE SC SCH ×4 (08:13→21:21)
[2023-05-06] MEDS: METOPROLOL SUCC 25MG EXT REL TAB PO SCH ×2 (08:17→21:25)
[2023-05-06] MEDS: BUMETANIDE 1 MG TAB PO SCH (08:18)
[2023-05-06] MEDS: VALSARTAN/SACUBITRIL 26/24MG TAB PO SCH ×2 (08:18→21:25)
[2023-05-06] MEDS: TICAGRELOR 90 MG TAB PO SCH ×2 (08:19→21:24)
[2023-05-06] MEDS: APIXABAN 5 MG TABLET PO SCH ×2 (08:19→21:24)
[2023-05-06] MEDS: EMPAGLIFLOZIN 10 MG TAB PO SCH (08:19)
[2023-05-06] MEDS: SPIRONOLACTONE 12.5 MG TAB PO SCH (08:20)
[2023-05-06] MEDS: modafiniL 100 MG TAB PO SCH (08:30)
--- NOTE | 2023-05-06 14:16 | Hospitalist Progress Note ---
Date of Service May 06, 2023 Assessment & Plan (1) Cellulitis of left lower extremity: Plan: Resolved s/p daptomycin IV and cefepime IV early in the stay followed by transition to PO keflex on 04/23 completed 10 days of Rx small ulcerations distal L leg are resolved (2) Acute on chronic systolic (congestive) heart failure: Plan: Presented in acute decompensated and was diuresed earlier in the stay -was not taking his medications at home despite reminders from his children EF 30-35% on most recent echo 04/09/23 follows with [facility] Cardiology has been well compensated this week, euvolemic to dry, weight down from 105-->92 kg this stay Creatinine increased 2-3 days ago - multiple meds were held due to such (bumex, aldactone, Entresto) now that he is getting meds consistently and on empagliflozin diuretics doses need to be reduced resumed entresto resume bumex decreased to 1 mg daily and spironolactone decreased to 12.5 mg daily check BMP in AM follow volume status edema and weight Continue meto succ BID Continue empagliflozin (3) Polyarticular gout: Plan: resolved acute synovitis of R 3rd/finger MCPs and L 1st MTP x-rays neg for fracture Uric acid 14 consider allopurinol prophylaxis in the future R hand resolved L foot podagra resolved stop prednisone start low dose allopurinol next week refer to rheum (pt's daughter requests [facility]) post-d/c for gout management (4) Atrial fibrillation: Plan: continue digoxin, metoprolol succ BID, and apixaban BID had poor rates control early in the stay related to volume overload metoprolol succ was increased to 150mg BID but later had hypotension and dose of metoprolol succ had to be reduced he is now on metoprolol succ 75mg BID with good rate control appreciate Dr Macario's assistance from cardiology (5) CKD (chronic kidney disease) stage 3, GFR 30-59 ml/min: Plan: Cr last six months has ranged from 1.5-2.0 Cr tiburcio but now trending down - see above -Cr at recent baseline 05/05 -check BMP in AM (6) Hand pain, right: Plan: 2nd gout attack resolved s/p prednisone (7) Elevated troponin: Plan: peak HS trop 96 earlier this admission no ischemic symptoms likely myocardial demand ischemia in setting of #1 (8) Bilateral lower extremity edema: Plan: 2nd decompensated CHF -- resolved (9) Generalized weakness: Plan: multifactorial - cellulitis, systolic CHF, ?myopathy from statin? resp BioFire panel negative CPK was >1000 but slowly decreased and returned to normal statin has been held during this time period aldolase returned normal sed rate/crp both mildly elevated prox muscle weakness of legs c/w myopathy rather than myositis sent HMG-COa reductase inhibitor ab which, if elevated, is c/w statin-induced myopathy - pending, sendout I discussed his care informally with Dr Hensley from [facility] rheumatology recommends holding statin until he is seen as outpatient pt's daughter asked about [facility] since all of his physicians are [facility] - can do such at their request (10) BPH (benign prostatic hyperplasia): Plan: not on meds for such voiding w/o difficulty (11) Ischemic cardiomyopathy: Plan: EF 30-35% with multiple WMAs decompensated CHF this admission requiring diuresis early in the hospitalization follows with Dr Macario - [facility] Cardiology (12) Mild cognitive impairment: Plan: 2nd to prior strokes. Doing well with supervision. When he was at home alone he was not taking his meds despite reminders. (13) CAD (coronary artery disease): Plan: per records - post PCI to circumflex with 2 stents. stage LAD intervention with CHULA x 2 - 05/2015. repeat intervention to the LAD (overlapping stents) in March of 2017 for very late stent thrombosis. no ischemic symptoms at this time. cont BB cont ticagrelor BID statin on hold due to elevated CPK earlier in the stay (14) Moderate obstructive sleep apnea: Plan: intolerant of CPAP cont modafinil (15) Hypothyroidism: Plan: TSH 2 this admission cont synthroid (16) Elevated CPK: Plan: CPK was >1000 early in the stay he denied myalgias but has had proximal muscle weakness of hip girdle he was on high-dose statin at time of admission - now on hold CPK finally normalized see discussion above under "weakness" (17) Cerebrovascular disease: Plan: multiple strokes in the past cont Eliquis for secondary prevention in light of chronic a.fib/flutter Plan son updated by phone 05/03, 05/06 daughter updated at bedside over the weekend dispo - SNF for rehab - tomorrow? discussed with care coord Admission and Anticipated Discharge Date Admission Date: April 21, 2023 Subjective doing well, no shortness of breath, no chest or abdominal pain, no edema, no joint pains Physical Exam Physical Exam: PHYSICAL EXAMINATION Last 24h vital signs reviewed, see documentation in flowsheet General: awake in bed, seen early HEENT: Normocephalic, atraumatic, pupils round and equal, sclerae anicteric, no conjunctival injection, moist mucus membranes Lungs: CTAB no rrw normal resp effort Heart: reg no mrg, no JVD Abdomen: ND/NT +BT Extremities: Warm, dry, well-perfused. minimal woody lower extremity edema - slowly improving Neuro: Alert and oriented x self hospital basic situation, vague historian, face symmetric, moves 4 extremities well Psych: Normal affect and behavior Results & Data Results & Data Vital Signs (Past 12 Hours) Vital Signs Temp Pulse Resp BP Pulse Ox O2 Del Method 05/06/23 07:07 36.5 C 62 14 107/68 93 Room Air PG Care Time/CCT Total # of Minutes Spent Total Time Spent with Patient: Total time spent is greater than 50% in coordination of care (as documented) at patient's floor/unit and/or counseling patient: Coding Level of Care Code 97632 SUB INP/OBS CARE 2/35MIN Diagnoses Cellulitis of left lower extremity L03.116 Acute on chronic systolic (congestive) heart failure I50.23 Polyarticular gout M10.9 Permanent atrial fibrillation I48.21 Atrial fibrillation type: permanent CKD (chronic kidney disease) stage 3, GFR 30-59 ml/min N18.30 Hand pain, right M79.641 Elevated troponin R79.89 Bilateral lower extremity edema R60.0 Generalized weakness R53.1 BPH (benign prostatic hyperplasia) N40.0 Ischemic cardiomyopathy I25.5 Mild cognitive impairment G31.84 Coronary artery disease of [place] artery of [place] heart with stable angina pectoris I25.118 Coronary Disease-Associated Artery/Lesion type: [place] artery [place] vs. transplanted heart: [place] heart Associated angina: with stable angina Moderate obstructive sleep apnea G47.33 Hypothyroidism E03.9 Elevated CPK R74.8 Cerebrovascular disease I67.9 (4) Atrial fibrillation Atrial fibrillation type: permanent Qualified Code(s): I48.21 - Permanent atrial fibrillation (13) CAD (coronary artery disease) Coronary Disease-Associated Artery/Lesion type: [place] artery [place] vs. transplanted heart: [place] heart Associated angina: with stable angina Qualified Code(s): I25.118 - Atherosclerotic heart disease of [place] coronary artery with other forms of angina pectoris
[2023-05-06] MEDS: DIGOXIN 0.125 MG TAB PO SCH (16:43)
[2023-05-07] MEDS: LEVOTHYROXINE SODIUM 75 MCG TABLET PO SCH (05:16)
[2023-05-07 08:13] LABS: BUN Creatinine Ratio 29.9 (10-20); Calcium 9.3 mg/dl (8.6-10.3); Creatinine Clr Calc Pharmacy 42.5 ml/min; Est GFR (African American) 46.3 ml/min; Potassium 3.9 mmol/L (3.5-5.1)
[2023-05-07] MEDS: BUMETANIDE 1 MG TAB PO SCH (08:44)
[2023-05-07] MEDS: modafiniL 100 MG TAB PO SCH (08:44)
[2023-05-07] MEDS: SPIRONOLACTONE 12.5 MG TAB PO SCH (08:44)
[2023-05-07] MEDS: METOPROLOL SUCC 25MG EXT REL TAB PO SCH (08:44)
[2023-05-07] MEDS: VALSARTAN/SACUBITRIL 26/24MG TAB PO SCH (08:44)
[2023-05-07] MEDS: EMPAGLIFLOZIN 10 MG TAB PO SCH (08:44)
[2023-05-07] MEDS: TICAGRELOR 90 MG TAB PO SCH ×2 (08:44→20:38)
[2023-05-07] MEDS: INSULIN ASPART PER UNIT CHARGE SC SCH ×4 (08:45→21:40)
[2023-05-07] MEDS: APIXABAN 5 MG TABLET PO SCH ×2 (08:45→20:37)
--- NOTE | 2023-05-07 17:16 | Hospitalist Progress Note ---
Date of Service May 07, 2023 Assessment & Plan (1) Cellulitis of left lower extremity: Plan: Resolved s/p daptomycin IV and cefepime IV early in the stay followed by transition to PO keflex on 04/23 completed 10 days of Rx small ulcerations distal L leg are resolved (2) Acute on chronic systolic (congestive) heart failure: Plan: Presented in acute decompensated heart failure with severe volume overload and was diuresed earlier in the stay. After few doses of IV diuretics he continued to diurese rapidly on his previous home dose of bumex 2 mg (had been increased to 3 shortly before admission). -was not taking his medications at home despite 2x daily reminders from his children EF 30-35% on most recent echo 04/09/23 follows with [facility] has been well compensated this week, euvolemic to dry, weight down from 105-->92 kg this stay Creatinine increased last week - multiple meds were held due to such (bumex, aldactone, Entresto) now that he is getting meds consistently, euvolemic to dry, and on empagliflozin medication doses have needed to be reduced (for renal function and hypotension) resumed entresto, reduced to half tab bid resumed bumex decreased to 1 mg daily and spironolactone decreased to 12.5 mg daily decreased metoprolol to 50 mg bid Continue empagliflozin BMP reviewed today and Cr 1.6 which is his baseline. Monitor volume status/edema, BP, weight BMP recommended early next week Follow up with [facility] (3) Polyarticular gout: Plan: treated with prednisone, resolved acute synovitis of R 3rd/finger MCPs and L 1st MTP x-rays neg for fracture Uric acid 14 R hand resolved L foot podagra resolved last dose prednisone 05/06 start low dose allopurinol next week refer to rheum (pt's daughter requests [facility] post-d/c for gout management (4) Atrial fibrillation: Plan: continue digoxin, metoprolol succ BID, and apixaban BID had poor rates control early in the stay related to volume overload, resolved metoprolol succ was increased to 150mg BID but later had hypotension and dose of metoprolol succ had to be reduced he was on metoprolol succ 75mg BID with good rate control, reduced 05/[address] Macario's assistance from cardiology (5) CKD (chronic kidney disease) stage 3, GFR 30-59 ml/min: Plan: Cr last six months has ranged from 1.5-2.0 Cr tiburcio but now trending down - see above -Cr at recent baseline 05/05, 05/07 (6) Hand pain, right: Plan: 2nd gout attack resolved s/p prednisone (7) Elevated troponin: Plan: peak HS trop 96 earlier this admission no ischemic symptoms likely myocardial demand ischemia in setting of #1 (8) Bilateral lower extremity edema: Plan: 2nd decompensated CHF -- resolved (9) Generalized weakness: Plan: multifactorial - cellulitis, systolic CHF, ?myopathy from statin? resp BioFire panel negative CPK was >1000 but slowly decreased and returned to normal high dose statin has been held during this time period aldolase returned normal sed rate/crp both mildly elevated prox muscle weakness of legs c/w myopathy rather than myositis sent HMG-COa reductase inhibitor ab which, if elevated, is c/w statin-induced myopathy - pending, sendout Dr. Barnes discussed his care informally with Dr Hensley from [facility] rheumatology recommends holding statin until he is seen as outpatient pt's daughter asked about [facility] since all of his physicians are [facility] - can do such at their request (10) BPH (benign prostatic hyperplasia): Plan: not on meds for such voiding w/o difficulty (11) Ischemic cardiomyopathy: Plan: EF 30-35% with multiple WMAs decompensated CHF this admission requiring diuresis early in the hospitalization follows with Dr Macario - [facility] (12) Mild cognitive impairment: Plan: 2nd to prior strokes. Doing well with supervision. When he was at home alone he was not taking his meds despite reminders. (13) CAD (coronary artery disease): Plan: per records - post PCI to circumflex with 2 stents. stage LAD intervention with CHULA x 2 - 05/2015. repeat intervention to the LAD (overlapping stents) in March of 2017 for very late stent thrombosis. no ischemic symptoms at this time. cont BB cont ticagrelor BID statin on hold due to elevated CPK earlier in the stay (14) Moderate obstructive sleep apnea: Plan: intolerant of CPAP cont modafinil (15) Hypothyroidism: Plan: TSH 2 this admission cont synthroid (16) Elevated CPK: (17) Cerebrovascular disease: Plan: multiple strokes in the past cont Eliquis for secondary prevention in light of chronic a.fib/flutter Plan son updated by phone 05/03, 05/06 daughter updated at bedside over the weekend dispo - SNF for rehab - tomorrow? discussed with care coord Admission and Anticipated Discharge Date Admission Date: April 21, 2023 Subjective doing well, no complaints, no CP dyspnea or edema. slight soreness R MCPs, no pain L 1st MTP Physical Exam 2 Physical Exam: PHYSICAL EXAMINATION Last 24h vital signs reviewed, see documentation in flowsheet General: awake in bed, alert HEENT: Normocephalic, atraumatic, pupils round and equal, sclerae anicteric, no conjunctival injection, moist mucus membranes Lungs: CTAB no rrw normal resp effort Heart: reg no mrg, no JVD Abdomen: ND/NT +BT Extremities: Warm, dry, well-perfused. minimal woody lower extremity edema. R 3/4 MCP and L 1st MTP erythema warmth tenderness resolved Neuro: Alert and oriented x self hospital basic situation, vague historian, face symmetric, moves 4 extremities well Psych: Normal affect and behavior Results & Data Results & Data Vital Signs (Past 12 Hours) Vital Signs Temp Pulse Resp BP Pulse Ox O2 Del Method 05/07/23 16:08 70 18 96/66 L 96 Room Air 05/07/23 08:07 36.7 C 76 18 148/85 H 96 Room Air Laboratory Results 04/27/23 06:42 05/07/23 07:11 PG Care Time/CCT Total # of Minutes Spent Total Time Spent with Patient: Total time spent is greater than 50% in coordination of care (as documented) at patient's floor/unit and/or counseling patient: Coding Level of Care Code 86715 SUB INP/OBS CARE 2/35MIN Diagnoses Cellulitis of left lower extremity L03.116 Acute on chronic systolic (congestive) heart failure I50.23 Polyarticular gout M10.9 Permanent atrial fibrillation I48.21 Atrial fibrillation type: permanent CKD (chronic kidney disease) stage 3, GFR 30-59 ml/min N18.30 Hand pain, right M79.641 Elevated troponin R79.89 Bilateral lower extremity edema R60.0 Generalized weakness R53.1 BPH (benign prostatic hyperplasia) N40.0 Ischemic cardiomyopathy I25.5 Mild cognitive impairment G31.84 Coronary artery disease of [place] artery of [place] heart with stable angina pectoris I25.118 Coronary Disease-Associated Artery/Lesion type: [place] artery [place] vs. transplanted heart: [place] heart Associated angina: with stable angina Moderate obstructive sleep apnea G47.33 Hypothyroidism E03.9 Elevated CPK R74.8 Cerebrovascular disease I67.9 (4) Atrial fibrillation Atrial fibrillation type: permanent Qualified Code(s): I48.21 - Permanent atrial fibrillation (13) CAD (coronary artery disease) Coronary Disease-Associated Artery/Lesion type: [place] artery [place] vs. transplanted heart: [place] heart Associated angina: with stable angina Qualified Code(s): I25.118 - Atherosclerotic heart disease of [place] coronary artery with other forms of angina pectoris
[2023-05-07] MEDS: DIGOXIN 0.125 MG TAB PO SCH (17:22)
[2023-05-08] MEDS: LEVOTHYROXINE SODIUM 75 MCG TABLET PO SCH (05:33)
[2023-05-08] MEDS: EMPAGLIFLOZIN 10 MG TAB PO SCH (08:52)
[2023-05-08] MEDS: TICAGRELOR 90 MG TAB PO SCH (08:52)
[2023-05-08] MEDS: SPIRONOLACTONE 12.5 MG TAB PO SCH (08:53)
[2023-05-08] MEDS: APIXABAN 5 MG TABLET PO SCH (08:54)
[2023-05-08] MEDS: BUMETANIDE 1 MG TAB PO SCH (08:54)
[2023-05-08] MEDS: INSULIN ASPART PER UNIT CHARGE SC SCH (08:58)
[2023-05-08] MEDS ORDERED: VALSARTAN/SACUBITRIL 26/24MG TAB PO SCH (09:00)
[2023-05-08] MEDS ORDERED: METOPROLOL SUCC 50MG EXT REL TAB PO SCH (09:00)
[2023-05-08] MEDS ORDERED: predniSONE 20 MG TAB PO STA (09:05)
--- NOTE | 2023-05-08 09:22 | Discharge Summary ---
Date of Service May 08, 2023 Admission HPI Per Admitting Provider The patient is a 72-year-old male with a past medical history including BPH, cardiomyopathy, chronic systolic CHF, ischemic cardiomyopathy, history of arterial ischemic stroke, hypertension, three-vessel CAD, hypothyroidism, moderate obstructive sleep apnea and hyperlipidemia. The patient reports that he has been too weak over the past 3 to 4 days to get to the sink to drink much fluids, and his daughter reports that she brought him for large [place] mugs of water when she got there to see him this afternoon. His main complaint is that of left lower extremity pain and redness worsening over the past several days. He denies any fevers or chills. He has had some chronic shortness of breath. Principal Diagnosis acute on chronic systolic heart failure, LLE cellulitis, polyarticular gout Discharge Exam PHYSICAL EXAMINATION Last 24h vital signs reviewed, see documentation in flowsheet General: awake in bed, alert HEENT: Normocephalic, atraumatic, pupils round and equal, sclerae anicteric, no conjunctival injection, moist mucus membranes Lungs: CTAB no rrw normal resp effort Heart: reg no mrg, no JVD Abdomen: ND/NT +BT Extremities: Warm, dry, well-perfused. minimal woody lower extremity edema. R 3/4 MCP and L 1st MTP erythema warmth tenderness resolved. L knee with mild-mod effusion, no warmth erythema or ecchymosis, tenderness to palpation and ROM that is out of proportion to exam Neuro: Alert and oriented x self hospital basic situation, vague historian, face symmetric, moves 4 extremities well Psych: Normal affect and behavior Discharge Data Allergies Allergy/AdvReac Type Severity Reaction Status Date / Time donepezil Allergy Unknown SEE COMMENT Verified 04/21/23 18:28 duloxetine [From Cymbalta] Allergy Unknown SEE COMMENT Verified 04/21/23 18:28 Consultations 04/21/23 18:15 ED Decision to Admit Stat 04/22/23 08:40 Consult Cardiology Routine 05/08/23 08:33 Consult [facility] gate technician Routine Ordered Studies 04/21/23 15:46 US venous doppler LE LT Stat Chest X-Ray 04/21/23 15:46 XR chest 1V portable CLINICAL HISTORY: Weakness. COMPARISON STUDY: Chest radiograph and chest CT December 08, 2022. FINDINGS: There is no pneumothorax. Trace bilateral pleural effusions are present. Moderate cardiomegaly is unchanged. There is pulmonary vascular congestion without overt pulmonary edema. Tortuosity of the descending thoracic aorta is incidentally noted. Mediastinal contours are stable. There is no consolidation to suggest pneumonia. IMPRESSION: Cardiomegaly with pulmonary vascular congestion. Trace bilateral pleural effusions. ACT 112: Negative or not required by law. Electronically signed by: Juan Manrique M.D. 04/21/2023 5:09 PM Venous Doppler Study 04/21/23 15:46 LEFT LOWER EXTREMITY VENOUS DOPPLER CLINICAL HISTORY: non traumatic leg swelling COMPARISON STUDY: No previous studies for comparison. TECHNIQUE: Sonography of the deep venous system of the left lower extremity was performed. Compression and augmentation were evaluated. FINDINGS: The left common femoral, superficial femoral and popliteal veins were compressible. Augmentation was normal. Flow was shown within the deep calf vessels. IMPRESSION: No evidence of deep venous thrombus within the left lower extremity. ACT 112: Negative or not required by law. Electronically signed by: Juan Manrique M.D. 04/21/2023 5:27 PM Hand X-Ray 04/22/23 15:46 XR hand RT 2V CLINICAL HISTORY: R 3rd MCP joint swelling and pain COMPARISON: None FINDINGS: Alignment of the right hand is anatomic. No acute fracture. Carpal bones are intact. Distal right radius and ulna are intact. There is mild osteoarthritis of multiple articulations of the right hand and wrist, including the right third metacarpophalangeal joint. IMPRESSION: 1. No acute fractures within the right hand. 2. Mild osteoarthritis within multiple articulations of the right hand and wrist, including the right third metacarpophalangeal joint. ACT 112: Negative or not required by law. Electronically signed by: Juan Manrique M.D. 04/22/2023 4:34 PM 04/27/23 06:42 05/07/23 07:11 Hospital Course (1) Cellulitis of left lower extremity: Resolved s/p daptomycin IV and cefepime IV early in the stay followed by transition to PO keflex on 04/23 completed 10 days of Rx small ulcerations distal L leg are resolved (2) Acute on chronic systolic (congestive) heart failure: Presented in acute decompensated heart failure with severe volume overload and was diuresed earlier in the stay. After few doses of IV diuretics he continued to diurese rapidly on his previous home dose of bumex 2 mg (had been increased to 3 shortly before admission). -was not taking his medications at home despite 2x daily reminders from his children EF 30-35% on most recent echo 04/09/23 follows with [facility] has been well compensated this week, euvolemic to dry, weight down from 105-->92 kg this stay Creatinine increased last week - multiple meds were held due to such (bumex, aldactone, Entresto) now that he is getting meds consistently, euvolemic to dry, and on empagliflozin medication doses have needed to be reduced (for renal function and hypotension) resumed entresto, reduced to half tab bid resumed bumex decreased to 1 mg daily and spironolactone decreased to 12.5 mg daily decreased metoprolol to 50 mg bid continue digoxin Continue empagliflozin BMP reviewed 05/08 and Cr 1.6 which is his baseline. Monitor volume status/edema, BP, weight BMP recommended early next week Follow up with [facility]ology (3) Polyarticular gout: treated with prednisone at time of admission, resolved acute synovitis of R 3rd/finger MCPs and L 1st MTP x-rays neg for fracture Uric acid 14 R hand resolved L foot podagra resolved last dose prednisone 05/06 On 05/08 had new complaint of L knee pain. On exam L knee with mild-mod effusion, no warmth erythema or ecchymosis, tenderness to palpation and ROM that is out of proportion to exam consistent with recurrent gout flare. He did have pain in L knee earlier in admission when he had the initial gout flare. Ddx is septic arthritis, hemarthrosis, mechanical injury (has had no falls), all of which seem unlikely based on the presentation and consistency with previous similar symptoms that resolved with prednisone, then recurred 48h after stopping prednisone. -trial prednisone burst - 40 mg x 1 given 05/08 -prednisone 20 mg daily 05/09-05/11 -prednisone 5 mg following that -if not responding to steroid further evaluation may be indicated start low dose allopurinol next week or when flare resolved -likely need to start allopurinol or other gout control medication while still on low dose prednisone, since he flared so quickly after stopping prednisone (was on 5 mg daily through 05/06) outpatient referral to rheum (pt's daughter requests [facility]) has been made post- d/c for gout management (4) Atrial fibrillation: continue digoxin, metoprolol succ BID, and apixaban BID had poor rates control early in the stay related to volume overload, resolved metoprolol succ was increased to 150mg BID but later had hypotension and dose of metoprolol succ had to be reduced he was on metoprolol succ 75mg BID with good rate control, reduced 05/07 for hypotension continue digoxin appreciate Dr Macario's assistance from cardiology (5) CKD (chronic kidney disease) stage 3, GFR 30-59 ml/min: Cr last six months has ranged from 1.5-2.0 Cr tiburcio but now trending down - see above -Cr at recent baseline 05/05, 05/07 (6) Hand pain, right: 2nd gout attack resolved s/p prednisone (7) Elevated troponin: peak HS trop 96 earlier this admission no ischemic symptoms likely myocardial demand ischemia in setting of #1 (8) Bilateral lower extremity edema: 2nd decompensated CHF -- resolved (9) Generalized weakness: multifactorial - cellulitis, systolic CHF, ?myopathy from statin? resp BioFire panel negative CPK was >1000 but slowly decreased and returned to normal high dose statin has been held during this time period aldolase returned normal sed rate/crp both mildly elevated prox muscle weakness of legs c/w myopathy rather than myositis sent HMG-COa reductase inhibitor ab which, if elevated, is c/w statin-induced myopathy - pending, sendout Dr. Barnes discussed his care informally with Dr Hensley from [facility]ology recommends holding statin until he is seen as outpatient pt's daughter asked about [facility] since all of his physicians are [facility] - can do such at their request (10) BPH (benign prostatic hyperplasia): not on meds for such voiding w/o difficulty (11) Ischemic cardiomyopathy: EF 30-35% with multiple WMAs decompensated CHF this admission requiring diuresis early in the hospitalization follows with Dr Macario - [facility] (12) Mild cognitive impairment: 2nd to prior strokes. Doing well with supervision. When he was at home alone he was not taking his meds despite reminders. (13) CAD (coronary artery disease): per records - post PCI to circumflex with 2 stents. stage LAD intervention with CHULA x 2 - 05/2015. repeat intervention to the LAD (overlapping stents) in March of 2017 for very late stent thrombosis. no ischemic symptoms at this time. cont BB cont ticagrelor BID statin on hold due to elevated CPK earlier in the stay (14) Moderate obstructive sleep apnea: intolerant of CPAP cont modafinil (15) Hypothyroidism: TSH 2 this admission cont synthroid (16) Elevated CPK: (17) Cerebrovascular disease: multiple strokes in the past cont Eliquis for secondary prevention in light of chronic a.fib/flutter Plan son updated by phone 05/03, 05/06 daughter updated at bedside over the weekend dispo - [facility] for rehab discussed with care coord Total Time Total Time Spent Total Time Spent (In Minutes): I spent 45 minutes coordinating care for discharge including reviewing vitals, examining patient, assessing new complaint of knee pain, discussion with care coord and RN, writing inpatient and discharge orders, documentation Discharge Plan Discharge Items Patient Disposition: Transfer [facility] Reason For Visit: FLUID OVERLOAD, LE WEAKNESS Discharge Diagnosis: Acute on chronic systolic heart failure, atrial fibrillation, left lower extremity cellulitis Condition on Discharge: Fair Activity: Resume your previous activity Weightbearing: Full weightbearing Non-emergency contact: Primary Care Provider Call non-emergency contact if: you have any medication questions and your symptoms worsen Follow-up/Referrals: Thi Montaño MD [Primary Care Provider] - Diet: Carb Consistent or DM2 and Heart Healthy Addtl Attending Provider Instructions: PT and OT evaluate and treat Blood glucose check AC Low dose aspart insulin sliding scale AC (0-6 units) Follow weight 3x a week, monitor leg edema Admission weight: 105 kg, Discharge (dry) weight 90 kg Please check BMP early next week L knee pain and swelling flared AM of 05/08 (similar to previous gout earlier in stay) last dose of prednisone 5 mg had been 05/06. Given prednisone 40 mg x 1 on AM of 05/08, assess for improvement. Please scheduled follow up with [facility] Please schedule follow up with [facility] for polyarticular gout and myopathy Pending studies: HMG-COa reductase inhibitor antibody to evaluate for statin- induced myopathy Pending Studies at Discharge: Yes (HMG-COa reductase inhibitor antibody) Stand-Alone Forms: My [employer] Skilled Items Patient informed of condition?: Yes DNR: No Discharge Level of Care: Skilled Communicable Disease: No Discharge Prognosis: Improving Lines: None Urinary Catheter: No Medications and DC Order Prescriptions: New insulin aspart U-100 [Novolog U-100 Insulin aspart] 100 unit/mL Solution See Rx Instructions .ROUTE .COMPLEX Qty: 10 0RF Rx Instructions: Low dose sliding scale (0-6 units), qAC as needed spironolactone 25 mg Tablet 12.5 mg PO DAILY Qty: 0 0RF metoprolol succinate 50 mg Tablet Extended Release 24 Hr 50 mg PO BID Qty: 0 0RF prednisone 20 mg tablet 20 mg PO DAILY 3 Days Qty: 3 0RF Rx Instructions: 05/09-05/11/23 for gout flare prednisone 5 mg tablet 5 mg PO DAILY 5 Days Qty: 5 0RF Rx Instructions: 05/12-05/16/23 for gout flare Eliquis 5 mg Tablet 5 mg PO BID Qty: 0 0RF levothyroxine [Synthroid] 75 mcg Tablet 75 mcg PO TODAY@0630 Qty: 0 0RF Brilinta 90 mg Tablet 90 mg PO BID Qty: 0 0RF bumetanide 1 mg Tablet 1 mg PO QAM Qty: 0 0RF Entresto 24-26 mg Tablet 0.5 tab PO BID Qty: 0 0RF Continued Jardiance 10 mg tablet 10 mg PO DAILY Qty: 30 11RF modafinil 100 mg tablet 100 mg PO QAM Qty: 30 5RF digoxin 125 mcg (0.125 mg) tablet 125 mcg PO HS Qty: 90 3RF nitroglycerin [Nitrostat] 0.4 mg Tablet, Sublingual 0.4 mg Sublingual UD PRN (Reason: Chest Pain) coenzyme Q10 100 mg Tablet 100 mg PO QAM Held atorvastatin 80 mg tablet 80 mg PO HS Qty: 90 3RF Hold Instructions: Resume on 06/05/23. held for possible statin myopathy Discontinued levothyroxine 75 mcg tablet 75 mcg PO DAILYBB Qty: 90 3RF Entresto 97-103 mg tablet 1 tab PO BID Qty: 60 11RF apixaban 5 mg tablet 5 mg PO BID Qty: 180 3RF metoprolol succinate 200 mg tablet extended release 24 hr 200 mg PO QAM 90 Days Qty: 90 3RF Brilinta 90 mg tablet 90 mg PO BID Qty: 180 3RF mupirocin 2 % ointment 1 applic topical TID Qty: 22 0RF bumetanide 2 mg tablet 3 mg PO DAILY spironolactone 25 mg tablet 25 mg PO QAM Discharge Orders: Discharge Order (Routine); Ordered 05/08/23 Ordered By: Lorraine Melvin Admission Data Admit Date/Time: 04/21/23 19:07 Attending Provider: Lorraine Melvin Admit Provider: Braydon Crow Primary Care Provider: Thi Montaño V. Other Providers: [facility]; [facility] [place]; Braydon Crow; Jorge Rodriguez; Valeriy Love; Mukul Macario; Keshawn Gramajo; Alan Rowan; Link Madden Jr; Burton Russell; Zoraida Parra; Fariha Fernandes; Pineda Maxwell; Pineda Morejon; Dom Fernández; Caridad Robles; Barbara Mehta; Alfonso Sotomayro; Cristian Pedraza; Gerardo Quintero Coding Level of Care Code 70796 INP/OBS DISCH >30 MIN Diagnoses Cellulitis of left lower extremity L03.116 Acute on chronic systolic (congestive) heart failure I50.23 Polyarticular gout M10.9 Permanent atrial fibrillation I48.21 Atrial fibrillation type: permanent CKD (chronic kidney disease) stage 3, GFR 30-59 ml/min N18.30 Hand pain, right M79.641 Elevated troponin R79.89 Bilateral lower extremity edema R60.0 Generalized weakness R53.1 BPH (benign prostatic hyperplasia) N40.0 Ischemic cardiomyopathy I25.5 Mild cognitive impairment G31.[address] disease of [place] artery of [place] heart with stable angina pectoris I25.118 Coronary Disease-Associated Artery/Lesion type: [place] artery [place] vs. transplanted heart: [place] heart Associated angina: with stable angina Moderate obstructive sleep apnea G47.33 Hypothyroidism E03.9 Elevated CPK R74.8 Cerebrovascular disease I67.9
[2023-05-08] MEDS: modafiniL 100 MG TAB PO SCH (10:03)
== END 2023-05-08 10:31 | DRG 291 ==
LOC: ED 14:53 → 2S 19:07 → SUATTDRO 19:07 → 2S 20:30 → 3W 05-05 22:32

== ENCOUNTER 2023-06-09 21:32 | Inpatient (IN) ==
--- NOTE | 2023-06-09 21:54 | Emergency Department Note ---
Impression & Plan Confusion, CKD (chronic kidney disease) stage 3, GFR 30-59 ml/min, Atrial fibrillation, permanent, Anticoagulant long-term use, Fall ED Provider Note NAME: CHEYANNE BECERRA AGE: 72 SEX: M : 1950 ARRIVES VIA: Walk-In INFORMANT: Patient, ED PROVIDER(S): Bruce Greene MD CHIEF COMPLAINT: Fall, confusion MEDICAL DECISION MAKING: Patient presents due to concern for weakness fatigue possible seizure and fall. IV was established and blood work was obtained along with CT head and cervical spine. Patient was given a small amount of IV fluids but does have a history of CHF so cautiously given fluids. Patient's blood work shows a white count of 10 with normal H&H and platelet count. Kidney function with creatinine 2.1 slightly worse compared to priors. Sugar 118. TSH normal. Urinalysis did not show evidence of infection COVID flu RSV negative. Patient was loaded with Keppra as a precaution given the possibility of a seizure. I did speak the on- call hospital service and the patient was admitted to the medicine service Discussion w/ other healthcare providers: Dr. Hamilton inpatient medicine Prior /Outside records reviewed: I reviewed a discharge summary from Lorraine Woodard from May 08, 2023. Patient with a history of BPH cardiomyopathy CHF stroke hypertension CAD hypothyroidism and CLARENCE. Patient had presented that time due to concern for acute on chronic systolic heart failure left lower extremity cellulitis and polyarticular gout. Differential diagnosis: Infection, dehydration, metabolic abnormality, hypo/hyperglycemia, electrolyte imbalance, anemia, UTI, pneumonia, thyroid dysfunction among others were considered. Diagnostics, as interpreted by me: ECG: A-fib with RVR, rate of 111, left axis deviation no ST elevations. No significant change from comparison April 21, 2023 Cardiac monitoring: An order was placed for continuous cardiac monitoring. The monitor shows a rate of 95 with irregularly irregular rhythm. Patient was placed on pulse oximetry Medical decision rules: Victor head CT rule, Nexus rule Imaging studies: I informally interpreted the patient's chest x-ray which does not show obvious pneumonia or pneumothorax with formal report to follow. HPI: Patient presents with son who does provide majority of the history. The patient does have a history of prior strokes and does have some cognitive delays but the son states that this seems to have worsened this evening. He states that he did take him up to take a shower and that he seemed to be taking a long shower and then he heard a thud and found that he had fallen to his buttock area. Did not appear that he had any seizure-like activity but potentially seemed a bit more confused. No urinary symptoms and no recent fevers or chills or cough. The patient does live with his son never since that has had his prior strokes. No reported diarrhea but the patient did have an episode of vomiting prior to presenting to the emergency department today. Patient does have a history of A-fib and is on blood thinners. No prior history of any seizures and no tongue biting or bowel or bladder incontinence PAST MEDICAL HISTORY: See Below PAST SURGICAL HISTORY: See Below SOCIAL HISTORY: See Below HOME MEDICATIONS: See Below ALLERGIES: See Below VITALS: See Below PHYSICAL EXAMINATION: GENERAL: NAD, non-toxic. EYE EXAM: Normal conjunctiva. PERRL, no anisocoria and EOM's grossly intact w/o pain. Head: Normocephalic atraumatic OROPHARYNX: Dry mucus membranes, grossly normal dentition. NECK: Trachea midline, no stridor. Supple, no nuchal rigidity, no adenopathy, non-tender. No signs of meningismus. FROM of the neck with good chin to chest and neck extension. LUNGS: Clear to auscultation. Normal chest wall mechanics. HEART: Irregular irregular, no MRG. ABDOMEN: Abdomen soft, non-tender, no masses, no rebound or guarding. BACK: No CVA TTP. SKIN: No rashes and no bruising. UPPER EXTREMITIES: Upper extremities are grossly normal. LOWER EXTREMITIES: Grossly normal, no edema. . NEURO EXAM: A&O x3, cranial nerves II-XII grossly intact, normal speech, moves all 4 extremities. Good [id number], no drift and no sensory deficits Past Med/Surg History Medical History Generalized weakness Edema Wound of left leg Elevated serum creatinine Acute on chronic systolic (congestive) heart failure Pulmonary edema Atrial fibrillation with rapid ventricular response Heart failure with mid-range ejection fraction (HFmEF) Enlarged prostate Kidney disease Facial droop Abnormal LFTs Facial droop due to acute cerebrovascular accident (CVA) Acute cerebrovascular accident (CVA) CHF exacerbation Hypoxia Pulmonary edema Acute kidney injury Altered mental state Acute CVA (cerebrovascular accident) Transaminitis Exposure to COVID-19 virus Bronchitis 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 BAKER Osteoarthritis Degenerative disc disease Tinnitus Sleep apnea NO CPAP Aneurysm BRAIN 2007- [facility] /UNSURE OF SIZE- FOLLOWS DR. BAKER Lumbar radiculopathy Acute respiratory failure with hypoxia Elevated TSH Chronic systolic heart failure H/O arterial ischemic stroke residual cognitive impairment. APR 25 2008/ [facility] /PLACED ON BLOOD THINNER Atrial flutter with rapid ventricular response Nasal septal deviation Hypertension Surgical History H/O neck surgery History of left cataract surgery Aspiration into airway PER PATIENT, THIS HAPPENED AFTER E.T TUBE CAME OUT IN RECOVERY, THINKS IT WAS 2005, DOES NOT REMEMBER WHAT PROCEDURE BUT THINKS IT WAS AT [facility]- POOR HISTORIAN (HX STROKE) History of colonoscopy Hx of umbilical hernia repair History of deviated nasal septum WITH REPAIR History of cardioversion [facility] 2017 S/P cardiac catheterization ONE @ [facility]/ ONE @ [facility] - 2015 & 2017- [place]- FROM [place] H/O hernia repair Family History Mother Diabetes Depression Unknown No problems noted. Father Myocardial infarction Grandfather (Paternal) Myocardial infarction Brother Myocardial infarction Sister Depression Other No family history of adverse response to anesthesia No family history of bleeding disorder Denies family history of Colon cancer Ovarian cancer Prostate cancer Breast cancer Social History Smoking Status: Former smoker Age Started Using Tobacco: 22; Age Quit Using Tobacco: 37; Cigarettes Per Day: 30 YEARS AGO; Second Hand Exposure: No; Do You Dip or Chew Tobacco: No; Hx Alcohol Use: Yes Alcohol type: hard liquor Alcohol Intake Frequency: 2-3 x/Week Hx Substance Use: No Preferred Language: Qatari Communication Ability: Effective Visual Impairment: No Limitations Hearing Ability: Normal Poultry Service Technician Required: No Beliefs That Will Affect Care: None marital status: Current Living Situation: Family Current Living Situation Comment: Lives with his son. current occupational status: retired and disabled How many Children do You have: 1 Other Information That Helps Us Care for You: No Feels Safe at Home: Yes Safety Concerns: Feels Safe At This Time Childhood Exposure to Second-Hand Smoke: Yes Dental Care, Regularly: Yes Physical Activity Frequency: Daily Seatbelt Use: always Sunscreen Use: No Assistive Devices: Walker Allergies Allergies Allergy/AdvReac Type Severity Reaction Status Date / Time donepezil Allergy Unknown SEE COMMENT Verified 06/04/23 11:32 duloxetine [From Cymbalta] Allergy Unknown SEE COMMENT Verified 06/04/23 11:32 Home Meds Home Medications Medication Instructions Recorded Confirmed nitroglycerin 0.4 mg sublingual 0.4 mg sublingual UD PRN Chest Pain 12/31/17 06/09/23 tablet (Nitrostat) allopurinol 100 mg tablet 100 mg PO QAM 05/28/23 06/09/23 bumetanide 2 mg tablet 2 mg PO QAM 05/28/23 06/09/23 sacubitril 97 mg-valsartan 103 mg 0.5 tab PO AMHS 05/28/23 06/09/23 tablet empagliflozin 10 mg tablet 10 mg PO QAM 06/09/23 06/09/23 (Jardiance) levothyroxine 75 mcg tablet 75 mcg PO .DAILY@0630 06/09/23 06/09/23 (Synthroid) metoprolol succinate 50 mg 50 mg PO AMHS 06/09/23 06/09/23 tablet,extended release 24 hr modafinil 100 mg tablet 100 mg PO QAM 06/09/23 06/09/23 spironolactone 25 mg tablet 12.5 mg PO QAM 06/09/23 06/09/23 Previous Rx's Medication Instructions Recorded atorvastatin 80 mg tablet 80 mg PO HS #90 tabs 04/03/22 digoxin 125 mcg (0.125 mg) tablet 125 mcg PO HS #90 tabs 05/03/23 apixaban 5 mg tablet (Eliquis) 5 mg PO BID #0 tabs 05/08/23 ticagrelor 90 mg tablet (Brilinta) 90 mg PO BID #0 tabs 05/08/23 Results & Data (ED) Vital Signs Vital Signs - 24 hr 06/09/23 21:36 Temperature 36.8 C Temperature Source Temporal Artery Scan Pulse Rate 84 Respiratory Rate 18 Respiratory Effort / Characteristics Non-Labored Spontaneous Respiratory Depth Normal Blood Pressure 110/48 L Blood Pressure Mean 68 Pulse Oximetry 94 Oxygen Delivery Method Room Air Sepsis Recent Fever Within 48 Hours No Sepsis New/Unexplained Change in Mental Status No Sepsis Action Taken by Nursing No Action Required Home Medications Current Medication List: was personally reviewed by me Laboratory Data Attestation: I reviewed the patient's lab results. 06/12/23 05:51 06/15/23 06:55 Lab Results 06/09/23 06/09/23 06/10/23 Range/Units 22:16 22:50 02:33 WBC 10.01 (4.8-10.8) K/ul RBC 4.74 (4.70-6.10) M/uL Hgb 15.4 (14.0-18.0) g/dl Hct 46.2 (42.0-52.0) % MCV 97.5 (80.0-100.0) fL MCH 32.5 (25.0-34.0) pg MCHC 33.3 (32.0-36.0) g/dL RDW Std Deviation 48.2 H (36.4-46.3) fL RDW Coeff of Sonja 13.5 (11.5-14.5) % Plt Count 272 (130-400) K/uL MPV 10.5 (9.4-12.4) fL Immature Gran % (Auto) 0.6 % Neut % (Auto) 84.3 % Lymph % (Auto) 5.7 % Cross % (Auto) 8.0 % Eos % (Auto) 0.5 % Baso % (Auto) 0.9 % Neut # (Auto) 8.44 H (1.40-6.50) K/uL Lymph # (Auto) 0.57 L (1.20-3.40) K/uL Cross # (Auto) 0.80 H (0.11-0.59) K/uL Eos # (Auto) 0.05 (0.00-0.50) K/uL Baso # (Auto) 0.09 (0.00-0.20) K/uL Immature Gran # (Auto) 0.06 (0.01-0.20) K/uL VBG pH (7.36-7.41) VBG pCO2 (38-50) mmHg VBG pO2 mmHg VBG HCO3 mmol/L VBG O2 Saturation % VBG Base Excess mEq/L Sodium 135 L (136-145) mmol/L Potassium 3.8 (3.5-5.1) mmol/L Chloride 96 L (98-107) mmol/L Carbon Dioxide 28 (21-32) mmol/L Anion Gap 11 (3-11) BUN 33 H (6-23) mg/dl Creatinine 2.14 H (0.6-1.4) mg/dl Est Cr Clr Drug Dosing Not Reportable Est GFR ( Amer) 34.3 ml/min Est GFR (Non-Af Amer) 29.6 ml/min BUN/Creatinine Ratio 15.4 (10-20) Glucose 118 H (70-99(Fasting)) mg/dl POC Glucose 120 H (70-99) mg/dl Calcium 9.7 (8.6-10.3) mg/dl Magnesium 1.8 (1.7-2.4) mg/dl Total Bilirubin 1.2 H (0.2-1.0) mg/dl Direct Bilirubin (0-0.2) mg/dl AST 14 (13-39) U/L ALT 12 (7-52) U/L Alkaline Phosphatase 60 (34-104) U/L Ammonia 35.0 (18-72) umol/L Total Creatine Kinase 50 (30-223) U/L Total Protein 7.7 (6.0-8.3) gm/dl Albumin 4.5 (3.4-5.0) gm/dl Globulin 3.2 (2.5-4.0) gm/dl Albumin/Globulin Ratio 1.4 (0.9-2) Procalcitonin (0-0.5) ng/ml TSH 1.851 (0.300-4.500) uIu/ml Urine Color Urine Appearance (Clear) Urine pH (4.5-7.5) Ur Specific Curlew (1.000-1.030) Urine Protein (Negative) Urine Glucose (UA) (Negative) Urine Ketones (Negative) Urine Blood (Negative) Urine Nitrite (Negative) Urine Bilirubin (Negative) Urine Urobilinogen (Negative) Ur Leukocyte Esterase (Negative) Digoxin 0.8 (0.8-2.0) ng/ml SARS-CoV-2 (PCR) (Negative) Influenza Type A (PCR) (Neg) Influenza Type B (PCR) (Neg) RSV (RT-PCR) (Neg) 06/10/23 06/10/23 06/10/23 Range/Units 05:10 14:15 16:02 WBC (4.8-10.8) K/ul RBC (4.70-6.10) M/uL Hgb (14.0-18.0) g/dl Hct (42.0-52.0) % MCV (80.0-100.0) fL MCH (25.0-34.0) pg MCHC (32.0-36.0) g/dL RDW Std Deviation (36.4-46.3) fL RDW Coeff of Sonja (11.5-14.5) % Plt Count (130-400) K/uL MPV (9.4-12.4) fL Immature Gran % (Auto) % Neut % (Auto) % Lymph % (Auto) % Cross % (Auto) % Eos % (Auto) % Baso % (Auto) % Neut # (Auto) (1.40-6.50) K/uL Lymph # (Auto) (1.20-3.40) K/uL Cross # (Auto) (0.11-0.59) K/uL Eos # (Auto) (0.00-0.50) K/uL Baso # (Auto) (0.00-0.20) K/uL Immature Gran # (Auto) (0.01-0.20) K/uL VBG pH 7.36 (7.36-7.41) VBG pCO2 56 H (38-50) mmHg VBG pO2 24 mmHg VBG HCO3 32 mmol/L VBG O2 Saturation < 60.0 % VBG Base Excess 4.6 mEq/L Sodium 137 (136-145) mmol/L Potassium 3.6 (3.5-5.1) mmol/L Chloride 97 L (98-107) mmol/L Carbon Dioxide 29 (21-32) mmol/L Anion Gap 11 (3-11) BUN 30 H (6-23) mg/dl Creatinine 1.95 H (0.6-1.4) mg/dl Est Cr Clr Drug Dosing 36.0 Est GFR ( Amer) 38.4 ml/min Est GFR (Non-Af Amer) 33.2 ml/min BUN/Creatinine Ratio 15.4 (10-20) Glucose 92 (70-99(Fasting)) mg/dl POC Glucose (70-99) mg/dl Calcium 9.5 (8.6-10.3) mg/dl Magnesium (1.7-2.4) mg/dl Total Bilirubin (0.2-1.0) mg/dl Direct Bilirubin (0-0.2) mg/dl AST (13-39) U/L ALT (7-52) U/L Alkaline Phosphatase (34-104) U/L Ammonia (18-72) umol/L Total Creatine Kinase (30-223) U/L Total Protein (6.0-8.3) gm/dl Albumin (3.4-5.0) gm/dl Globulin (2.5-4.0) gm/dl Albumin/Globulin Ratio (0.9-2) Procalcitonin 0.11 (0-0.5) ng/ml TSH (0.300-4.500) uIu/ml Urine Color Yellow Urine Appearance Clear (Clear) Urine pH 5.0 (4.5-7.5) Ur Specific Curlew 1.015 (1.000-1.030) Urine Protein Negative (Negative) Urine Glucose (UA) Negative (Negative) Urine Ketones Negative (Negative) Urine Blood Negative (Negative) Urine Nitrite Negative (Negative) Urine Bilirubin Negative (Negative) Urine Urobilinogen Negative (Negative) Ur Leukocyte Esterase Negative (Negative) Digoxin (0.8-2.0) ng/ml SARS-CoV-2 (PCR) NEGATIVE (Negative) Influenza Type A (PCR) Negative (Neg) Influenza Type B (PCR) Negative (Neg) RSV (RT-PCR) Negative (Neg) 06/11/23 Range/Units 07:21 WBC 6.99 (4.8-10.8) K/ul RBC 3.75 L (4.70-6.10) M/uL Hgb 12.3 L D (14.0-18.0) g/dl Hct 36.1 L (42.0-52.0) % MCV 96.3 (80.0-100.0) fL MCH 32.8 (25.0-34.0) pg MCHC 34.1 (32.0-36.0) g/dL RDW Std Deviation 48.5 H (36.4-46.3) fL RDW Coeff of Sonja 13.6 (11.5-14.5) % Plt Count 185 (130-400) K/uL MPV 10.4 (9.4-12.4) fL Immature Gran % (Auto) % Neut % (Auto) % Lymph % (Auto) % Cross % (Auto) % Eos % (Auto) % Baso % (Auto) % Neut # (Auto) (1.40-6.50) K/uL Lymph # (Auto) (1.20-3.40) K/uL Cross # (Auto) (0.11-0.59) K/uL Eos # (Auto) (0.00-0.50) K/uL Baso # (Auto) (0.00-0.20) K/uL Immature Gran # (Auto) (0.01-0.20) K/uL VBG pH (7.36-7.41) VBG pCO2 (38-50) mmHg VBG pO2 mmHg VBG HCO3 mmol/L VBG O2 Saturation % VBG Base Excess mEq/L Sodium 137 (136-145) mmol/L Potassium 3.4 L (3.5-5.1) mmol/L Chloride 102 (98-107) mmol/L Carbon Dioxide 28 (21-32) mmol/L Anion Gap 7 (3-11) BUN 25 H (6-23) mg/dl Creatinine 1.63 H D (0.6-1.4) mg/dl Est Cr Clr Drug Dosing 43.1 Est GFR ( Amer) 47.7 ml/min Est GFR (Non-Af Amer) 41.2 ml/min BUN/Creatinine Ratio 15.3 (10-20) Glucose 108 H (70-99(Fasting)) mg/dl POC Glucose (70-99) mg/dl Calcium 8.7 (8.6-10.3) mg/dl Magnesium (1.7-2.4) mg/dl Total Bilirubin 1.2 H (0.2-1.0) mg/dl Direct Bilirubin 0.2 (0-0.2) mg/dl AST 11 L (13-39) U/L ALT 7 (7-52) U/L Alkaline Phosphatase 46 (34-104) U/L Ammonia (18-72) umol/L Total Creatine Kinase (30-223) U/L Total Protein 6.1 D (6.0-8.3) gm/dl Albumin 3.6 (3.4-5.0) gm/dl Globulin (2.5-4.0) gm/dl Albumin/Globulin Ratio (0.9-2) Procalcitonin (0-0.5) ng/ml TSH (0.300-4.500) uIu/ml Urine Color Urine Appearance (Clear) Urine pH (4.5-7.5) Ur Specific Curlew (1.000-1.030) Urine Protein (Negative) Urine Glucose (UA) (Negative) Urine Ketones (Negative) Urine Blood (Negative) Urine Nitrite (Negative) Urine Bilirubin (Negative) Urine Urobilinogen (Negative) Ur Leukocyte Esterase (Negative) Digoxin (0.8-2.0) ng/ml SARS-CoV-2 (PCR) (Negative) Influenza Type A (PCR) (Neg) Influenza Type B (PCR) (Neg) RSV (RT-PCR) (Neg) Administered Medications Allopurinol (Allopurinol 100 Mg Tab) 200 mg PO QA RYLIE Stop: 07/13/23 08:59 Last Admin: 06/14/23 07:57 Dose: 200 mg Documented By: Admin: 06/13/23 09:35 Dose: 200 mg Documented By: TMP Apixaban (Apixaban 5 Mg Tablet) 5 mg PO BID RYLIE Stop: 07/10/23 08:59 Last Admin: 06/13/23 09:34 Dose: 5 mg Documented By: Admin: 06/12/23 20:26 Dose: 5 mg Documented By: Admin: 06/12/23 08:18 Dose: 5 mg Documented By: Admin: 06/11/23 21:15 Dose: 5 mg Documented By: Admin: 06/11/23 09:22 Dose: 5 mg Documented By: Admin: 06/10/23 21:47 Dose: 5 mg Documented By: Admin: 06/10/23 08:58 Dose: 5 mg Documented By: SKChristos Atorvastatin Calcium (Atorvastatin 40 Mg Tab) 80 mg PO HS RYLIE Stop: 07/10/23 20:59 Last Admin: 06/14/23 20:10 Dose: 80 mg Documented By: Admin: 06/13/23 19:41 Dose: 80 mg Documented By: Admin: 06/12/23 20:26 Dose: 80 mg Documented By: Admin: 02/16/24 21:16 Dose: 80 mg Documented By: Admin: 06/10/23 21:48 Dose: 80 mg Documented By: NINOSKA Bumetanide (Bumetanide 1 Mg Tab) [address] [facility] Stop: 07/14/23 08:59 Last Admin: 06/14/23 09:01 Dose: 2 mg Documented By: KENYATTA Cefazolin Sodium (Cefazolin 330 Mg/Ml 1 Gm Vial) 2,000 mg IV PREOP [facility]; Protocol Stop: 06/15/23 18:00 Last Admin: 06/15/23 10:22 Dose: 2,000 mg Documented By: YAYO Cyanocobalamin (Cyanocobalamin (B-12) 500 Mcg Tablet) 1,[address] [facility] Stop: 07/12/23 08:59 Last Admin: 06/14/23 07:58 Dose: 1,000 mcg Documented By: Admin: 06/13/23 09:35 Dose: 1,000 mcg Documented By: Admin: 06/12/23 09:51 Dose: 1,000 mcg Documented By: CARL Digoxin (Digoxin 0.125 Mg Tab) 0.125 mg PO [facility] Stop: 07/10/23 20:59 Last Admin: 06/14/23 20:10 Dose: 0.125 mg Documented By: Admin: 06/13/23 19:41 Dose: 0.125 mg Documented By: Admin: 06/12/23 20:25 Dose: 0.125 mg Documented By: Admin: 06/11/23 21:16 Dose: 0.125 mg Documented By: Admin: 06/10/23 21:45 Dose: 0.125 mg Documented By: NINOSKA Empagliflozin (Empagliflozin 10 Mg Tab) [address] [facility] Stop: 07/10/23 08:59 Last Admin: 06/14/23 07:58 Dose: 10 mg Documented By: Admin: 06/13/23 09:34 Dose: 10 mg Documented By: Admin: 06/12/23 08:18 Dose: 10 mg Documented By: Admin: 06/11/23 09:23 Dose: 10 mg Documented By: Admin: 06/10/23 08:59 Dose: 10 mg Documented By: JHONATAN Levothyroxine Sodium (Levothyroxine Sodium 75 Mcg Tablet) 75 mcg PO DAILYBB [facility] Stop: 07/10/23 06:29 Last Admin: 06/15/23 05:45 Dose: 75 mcg Documented By: Admin: 06/14/23 04:43 Dose: 75 mcg Documented By: Admin: 06/13/23 06:37 Dose: 75 mcg Documented By: Admin: 06/12/23 05:56 Dose: 75 mcg Documented By: Admin: 06/11/23 05:27 Dose: 75 mcg Documented By: Admin: 06/10/23 06:35 Dose: 75 mcg Documented By: Melatonin (Melatonin 3 Mg Tab) 3 mg PO HS [facility] Stop: 07/11/23 20:59 Last Admin: 06/14/23 20:10 Dose: 3 mg Documented By: SJAlban[place] Admin: 06/13/23 19:41 Dose: 3 mg Documented By: Admin: 06/12/23 20:27 Dose: 3 mg Documented By: Admin: 06/11/23 21:58 Dose: 3 mg Documented By: BRINDA Metoprolol Succinate (Metoprolol Succ 25mg Ext Rel Tab) 75 mg PO BID [facility] Stop: 07/12/23 20:59 Last Admin: 06/13/23 09:36 Dose: Not Given Documented By: Admin: 06/12/23 20:25 Dose: 75 mg Documented By: BRINDA Metoprolol Tartrate (Metoprolol Tartrate 50 Mg Tab) 50 mg PO Q12H PRN PRN Reason: sustained HR >100 Stop: 07/13/23 19:14 Last Admin: 06/14/23 18:26 Dose: 50 mg Documented By: DUNG Modafinil (Modafinil 100 Mg Tab) 100 mg PO QAM [facility] Stop: 07/10/23 08:59 Last Admin: 06/14/23 07:57 Dose: 100 mg Documented By: Admin: 06/13/23 09:34 Dose: 100 mg Documented By: Admin: 06/12/23 08:12 Dose: 100 mg Documented By: Admin: 06/11/23 09:36 Dose: 100 mg Documented By: Admin: 06/10/23 08:58 Dose: 100 mg Documented By: JHONATAN Prednisone (Prednisone 5 Mg Tab) 5 mg PO DAILY [facility] Stop: 07/13/23 08:59 Last Admin: 06/14/23 07:58 Dose: 5 mg Documented By: Admin: 06/13/23 09:35 Dose: 5 mg Documented By: TMP Ticagrelor (Ticagrelor 90 Mg Tab) 90 mg PO BID [facility] Stop: 07/10/23 08:59 Last Admin: 06/14/23 20:10 Dose: 90 mg Documented By: Admin: 06/14/23 07:57 Dose: 90 mg Documented By: Admin: 06/13/23 19:40 Dose: 90 mg Documented By: Admin: 06/13/23 09:34 Dose: 90 mg Documented By: Admin: 06/12/23 20:26 Dose: 90 mg Documented By: Admin: 06/12/23 08:18 Dose: 90 mg Documented By: Admin: 06/11/23 21:15 Dose: 90 mg Documented By: Admin: 06/11/23 09:22 Dose: 90 mg Documented By: Admin: 06/10/23 21:45 Dose: 90 mg Documented By: Admin: 06/10/23 08:58 Dose: 90 mg Documented By: JHONATAN Discontinued Medications Allopurinol (Allopurinol 100 Mg Tab) 100 mg PO QAM [facility] Stop: 07/10/23 08:59 Last Admin: 06/12/23 08:18 Dose: 100 mg Documented By: Admin: 06/11/23 09:22 Dose: 100 mg Documented By: Admin: 06/10/23 08:58 Dose: 100 mg Documented By: JHONATAN Allopurinol (Allopurinol 100 Mg Tab) 100 mg PO ONE ONE Stop: 06/12/23 09:01 Last Admin: 06/12/23 09:50 Dose: 100 mg Documented By: CARL Bacitracin (Bacitracin Oint 14 Gm Tube) Confirm Administered Dose 45 appln .ROUTE .STK-MED ONE Stop: 06/15/23 06:55 Last Admin: 06/15/23 10:23 Dose: 1 appln Documented By: FIFI Cefazolin Sodium (Cefazolin 330 Mg/Ml 1 Gm Vial) Confirm Administered Dose 1,980 mg .ROUTE .STK-MED ONE Stop: 06/15/23 07:59 Last Admin: 06/15/23 10:22 Dose: 1,980 mg Documented By: YAYO Fentanyl Citrate (Fentanyl Citrate Pf 100 Mcg/2 Ml Vial) Confirm Administered Dose 100 mcg .ROUTE .STK-MED ONE Stop: 06/15/23 07:59 Last Admin: 06/15/23 10:23 Dose: 100 mcg Documented By: YAYO Sodium Chloride (Nss) 500 mls @ 999 mls/hr IV .Q31M ONE Stop: 06/10/23 00:30 Last Infusion: 06/10/23 01:37 Dose: Infused Documented By: Admin: 06/10/23 00:49 Dose: 999 mls/hr Documented By: Lactated Ringer's (Lr) 1,000 mls @ 80 mls/hr IV .[id number] RYLIE Stop: 06/10/23 14:33 Last Infusion: 06/10/23 15:50 Dose: Infused Documented By: Admin: 06/10/23 02:49 Dose: 80 mls/hr Documented By: Levetiracetam (Levetiracetam 500 Mg/5 Ml Vial) 1,500 mg IV NOW STA Stop: 06/09/23 22:12 Last Admin: 06/09/23 23:15 Dose: 1,500 mg Documented By: Lidocaine HCl (Lidocaine 1% Local 20 Ml Vial) Confirm Administered Dose 40 ml .ROUTE .STK-MED ONE Stop: 06/15/23 06:55 Last Admin: 06/15/23 10:22 Dose: 40 ml Documented By: FIFI Metoprolol Succinate (Metoprolol Succ 50mg Ext Rel Tab) 50 mg PO BID RYLIE Stop: 07/10/23 08:59 Last Admin: 06/12/23 08:17 Dose: 50 mg Documented By: Admin: 06/11/23 21:15 Dose: 50 mg Documented By: Admin: 06/11/23 09:36 Dose: Not Given Documented By: Admin: 06/10/23 21:44 Dose: 50 mg Documented By: Admin: 06/10/23 08:59 Dose: 50 mg Documented By: JHONATAN Midazolam HCl (Midazolam Hcl 5 Mg/Ml 1 Ml Vial) Confirm Administered Dose 5 mg .ROUTE .STK-MED ONE Stop: 06/15/23 07:59 Last Increment: 06/15/23 10:23 Dose: 4 mg Documented By: YAYO Olanzapine (Olanzapine Zydis 5 Mg Orally Dis. Tab) 2.5 mg PO ONE STA Stop: 06/13/23 09:57 Last Admin: 06/13/23 10:34 Dose: 2.5 mg Documented By: TMP Olanzapine (Olanzapine 10 Mg/2.1 Ml Sdv) 2.5 mg IM NOW STA Stop: 06/13/23 10:05 Last Admin: 06/13/23 19:41 Dose: Not Given Documented By: MG Ondansetron HCl (Ondansetron Inj 2 Mg/Ml 2 Ml Vial) 4 mg IV NOW STA Stop: 06/09/23 22:11 Last Admin: 06/09/23 23:15 Dose: 4 mg Documented By: JR Potassium Chloride (Potassium Chloride Crtab 20 Meq Tabcr) 40 meq PO NOW STA Stop: 06/11/23 09:12 Last Admin: 06/11/23 09:36 Dose: 40 meq Documented By: TMP Prednisone (Prednisone 10 Mg Tablet) 10 mg PO DAILY RYLIE Stop: 07/11/23 17:14 Last Admin: 06/12/23 08:13 Dose: 10 mg Documented By: Admin: 06/11/23 17:57 Dose: 10 mg Documented By: CARL Sterile Water (Water, Sterile For Inj 10 Ml Vial) Confirm Administered Dose 10 ml .ROUTE .STK-MED ONE Stop: 06/15/23 06:55 Last Admin: 06/15/23 10:22 Dose: 10 ml Documented By: FIFI Vancomycin HCl (Vancomycin Hcl 1000mg/20ml Vial) Confirm Administered Dose 50 mg .ROUTE .STK-MED ONE Stop: 06/15/23 06:55 Last Admin: 06/15/23 10:22 Dose: 50 mg Documented By: FIFI Imaging Data Radiologist's Impression: Cervical Spine CT 06/09/23 22:10 Exam(s): CT C SPINE EXAM: CT Cervical Spine Without Intravenous Contrast CLINICAL HISTORY: Reason for exam: fall. TECHNIQUE: Axial computed tomography images of the cervical spine without intravenous contrast. CTDI is 26.42 mGy and DLP is 584.74 mGy-cm. Automated exposure control was utilized for the study. A dose lowering technique was utilized adhering to the principles of ALARA. COMPARISON: No relevant prior studies available. FINDINGS: The vertebral body heights are maintained. The craniocervical junction is intact. The atlanto-dens interval is maintained. The dens is intact. ACDF at C4-C6. No CT evidence of hardware competition. There is no spondylolisthesis. Multilevel cervical spondylosis and degenerative disc disease. Straightening of the cervical lordosis. The unenhanced neck soft tissues are grossly unremarkable. The visualized lung apices are grossly clear. IMPRESSION: No acute fracture or subluxation of the cervical spine. ACDF at C4-C6. No CT evidence of hardware competition. Electronically signed by: Florian Woods MD 06/09/23 23:20 PM Chest X-Ray 06/09/23 22:10 XR chest 1V portable HISTORY: weakness COMPARISON: Chest 04/21/2023. FINDINGS: No pneumothorax. No pleural effusions. The heart remains enlarged. No new focal lung consolidations to suggest a pneumonia. No evidence for pulmonary edema. Cervical spinal fusion hardware is again noted. Degenerative changes within the shoulders. IMPRESSION: Stable cardiomegaly. Otherwise, no acute process within the chest. ACT 112: Negative or not required by law. Electronically signed by: Obi Parkinson M.D. 06/10/2023 7:[address] 06/09/23 22:10 Exam(s): CT HEAD Without Contrast EXAM: CT Head Without Intravenous Contrast CLINICAL HISTORY: Reason for exam: h/o CVA on thinners, fall. TECHNIQUE: Axial computed tomography images of the head/brain without intravenous contrast. CTDI is 61.67 mGy and DLP is 374.65 mGy-cm. Automated exposure control was utilized for the study. A dose lowering technique was utilized adhering to the principles of ALARA. COMPARISON: Brain MRI April 25, 2021. FINDINGS: No acute intracranial hemorrhage. No midline shift or mass effect. Encephalomalacia in the RIGHT parietal lobe, consistent with old infarct. Age-related cerebral volume loss. Periventricular and subcortical white matter hypoattenuation, consistent with chronic microangiopathy. The visualized orbits appear grossly unremarkable. The calvarium is intact. The visualized paranasal sinuses and mastoid air cells are grossly clear. IMPRESSION: No acute intracranial hemorrhage, midline shift, or mass effect. Encephalomalacia in the RIGHT parietal lobe, consistent with old infarct. Electronically signed by: Florian Woods MD 06/09/23 23:12 PM Foot X-Ray 06/10/23 15:15 LEFT FOOT 3 VIEWS CLINICAL HISTORY: Fall with left foot injury. FINDINGS: 3 views of the left foot are obtained. No prior studies are available for comparison at the time of dictation. The skeletal structures are osteopenic. No fracture is seen. Mild degenerative change is noted throughout the foot. There are tiny dorsal and plantar heel spurs. The overlying soft tissues are within normal limits. IMPRESSION: No acute bony abnormality is identified. Electronically signed by: Daniel Hernandez M.D. 06/10/2023 4:46 PM Brain MRI 06/11/23 07:00 MRI OF THE BRAIN WITHOUT IV CONTRAST CLINICAL HISTORY: Change in mental status. COMPARISON STUDY: CT of the brain dated 06/09/2023. MRI of the brain dated 04/25/2021. TECHNIQUE: MRI of the brain was performed utilizing various T1 and T2-weighted sequences in the axial, sagittal, and coronal planes. IV contrast was not administered for this examination. FINDINGS: Brain parenchyma: There is age-related involutional change noting moderate to advanced confluent subcortical and periventricular microangiopathic disease. A focus of high right parietal encephalomalacia is consistent with a remote insult. There is also a small chronic left frontal lobe infarct. A chronic lacunar infarct is noted in the ginger. There is no hemorrhage or mass effect. There are scattered foci of nonspecific susceptibility abnormality. There is no restricted diffusion to suggest acute ischemia. [place]-white matter differentiation is preserved. No extra-axial fluid collection is seen. The cerebellar tonsils are normal in configuration. Ventricles, sulci, and cisterns: Prominent secondary to involutional change. Pituitary and sella: Unremarkable. Intracranial vasculature: Normal flow voids are maintained at the skull base. Orbits: The bony orbits are grossly intact. Orbital contents are normal in appearance noting bilateral ocular lens implant. Sinuses and mastoids: There is moderate mucosal thickening in the maxillary sinuses noting an air-fluid level on the left. There is moderate mucosal thickening within the ethmoid sinuses. Mild mucosal thickening is seen in the frontal and sphenoid sinuses. The metatarsals are clear. Calvarium: Unremarkable. Cervical cord: Partially visualized cervical spinal cord is normal in morphology and signal intensity. IMPRESSION: Chronic infarcts as above with no acute intracranial abnormality. ACT 112: Negative or not required by law. Electronically signed by: Daniel Hernandez M.D. 06/11/2023 1:54 PM Chest X-Ray 06/11/23 17:11 XR chest 2V PA/lateral HISTORY: URI, cough, RLL rales COMPARISON: Chest 06/09/2023. FINDINGS: No pneumothorax. No pleural effusions. No focal lung consolidations to suggest a pneumonia. No evidence for pulmonary edema. The heart remains mildly enlarged. Cervical spinal fusion hardware again noted. No acute fractures. IMPRESSION: No significant change compared to the prior study. No acute process. ACT 112: Negative or not required by law. Electronically signed by: Obi Parkinson M.D. 06/11/2023 6:23 PM Discharge Plan Visit Data Chief Complaint: TIA Symptoms Stated Complaint: STROKE HISTORY, VOMITING, CONFUSION/MEM LOSS ED Provider: Bruce Greene Discharge Problem: Confusion, CKD (chronic kidney disease) stage 3, GFR 30-59 ml/min, Atrial fibrillation, permanent, Anticoagulant long-term use, Fall Patient Disposition: Admitted As Inpatient Discharge Instructions Interventions: ED Discharge Assessment Last Done: 06/10/23 02:04 Discharge Problem: CKD (chronic kidney disease) stage 3, GFR 30-59 ml/min Qualifiers: Chronic kidney disease stage 3 subtype: unspecified whether 3a or 3b Qualified Code(s): N18.30 - Chronic kidney disease, stage 3 unspecified Fall Qualifiers: Encounter type: initial encounter Qualified Code(s): W19.XXXA - Unspecified fall, initial encounter
[2023-06-09 22:41] LABS: Basophils # (auto) 0.09 K/uL (0.00-0.20); Basophils % (auto) 0.9 %; Eosinophils # (auto) 0.05 K/uL (0.00-0.50); Eosinophils % (auto) 0.5 %; Hematocrit (blood only) 46.2 % (42.0-52.0); Hemoglobin 15.4 g/dl (14.0-18.0); Immature Granulocytes # (auto) 0.06 K/uL (0.01-0.20); Immature Granulocytes % (auto) 0.6 %; Lymphocytes # (auto) 0.57 K/uL (1.20-3.40); Lymphocytes % (auto) 5.7 %; Mean Corpuscular Hemoglobin 32.5 pg (25.0-34.0); Mean Corpuscular Hgb Conc 33.3 g/dL (32.0-36.0); Mean Corpuscular Volume 97.5 fL (80.0-100.0); Mean Platelet Volume 10.5 fL (9.4-12.4); Neutrophils # (auto) 8.44 K/uL (1.40-6.50); Neutrophils % (auto) 84.3 %; Platelet Count 272 K/uL (130-400); RDW Coefficient of Variation 13.5 % (11.5-14.5); RDW Standard Deviation 48.2 fL (36.4-46.3); Red Blood Count 4.74 M/uL (4.70-6.10); White Blood Count 10.01 K/ul (4.8-10.8)
[2023-06-09 23:01] LABS: Alanine Aminotransferase 12 U/L (7-52); Albumin Globulin Ratio 1.4 (0.9-2); Albumin Level 4.5 gm/dl (3.4-5.0); Alkaline Phosphatase 60 U/L (34-104); Anion Gap 11 (3-11); Aspartate Aminotransferase 14 U/L (13-39); BUN Creatinine Ratio 15.4 (10-20); Bilirubin,Total 1.2 mg/dl (0.2-1.0); Blood Urea Nitrogen 33 mg/dl (6-23); Calcium 9.7 mg/dl (8.6-10.3); Carbon Dioxide 28 mmol/L (21-32); Chloride 96 mmol/L (98-107); Est GFR (African American) 34.3 ml/min; Est GFR (Non-African American) 29.6 ml/min; Globulin 3.2 gm/dl (2.5-4.0); Glucose 118 mg/dl (70-99(Fasting)); Magnesium 1.8 mg/dl (1.7-2.4); Potassium 3.8 mmol/L (3.5-5.1); Sodium 135 mmol/L (136-145); Total Protein 7.7 gm/dl (6.0-8.3)
[2023-06-09 23:12] LABS: Thyroid Stimulating Hormone 1.851 uIu/ml (0.300-4.500)
--- NOTE | 2023-06-09 23:13 | CT Scan Report ---
Exam(s): CT HEAD Without Contrast EXAM: CT Head Without Intravenous Contrast CLINICAL HISTORY: Reason for exam: h/o CVA on thinners, fall. TECHNIQUE: Axial computed tomography images of the head/brain without intravenous contrast. CTDI is 61.67 mGy and DLP is 374.65 mGy-cm. Automated exposure control was utilized for the study. A dose lowering technique was utilized adhering to the principles of ALARA. COMPARISON: Brain MRI April 25, 2021. FINDINGS: No acute intracranial hemorrhage. No midline shift or mass effect. Encephalomalacia in the RIGHT parietal lobe, consistent with old infarct. Age-related cerebral volume loss. Periventricular and subcortical white matter hypoattenuation, consistent with chronic microangiopathy. The visualized orbits appear grossly unremarkable. The calvarium is intact. The visualized paranasal sinuses and mastoid air cells are grossly clear. IMPRESSION: No acute intracranial hemorrhage, midline shift, or mass effect. Encephalomalacia in the RIGHT parietal lobe, consistent with old infarct. Electronically signed by: Florian Woods MD 06/09/23 23:12 PM
[2023-06-09] MEDS: levETIRAcetam 500 MG/5 ML VIAL IV STA (23:15)
[2023-06-09] MEDS: ONDANSETRON INJ 2 MG/ML 2 ML VIAL IV STA (23:15)
--- NOTE | 2023-06-09 23:21 | CT Scan Report ---
Exam(s): CT C SPINE EXAM: CT Cervical Spine Without Intravenous Contrast CLINICAL HISTORY: Reason for exam: fall. TECHNIQUE: Axial computed tomography images of the cervical spine without intravenous contrast. CTDI is 26.42 mGy and DLP is 584.74 mGy-cm. Automated exposure control was utilized for the study. A dose lowering technique was utilized adhering to the principles of ALARA. COMPARISON: No relevant prior studies available. FINDINGS: The vertebral body heights are maintained. The craniocervical junction is intact. The atlanto-dens interval is maintained. The dens is intact. ACDF at C4-C6. No CT evidence of hardware competition. There is no spondylolisthesis. Multilevel cervical spondylosis and degenerative disc disease. Straightening of the cervical lordosis. The unenhanced neck soft tissues are grossly unremarkable. The visualized lung apices are grossly clear. IMPRESSION: No acute fracture or subluxation of the cervical spine. ACDF at C4-C6. No CT evidence of hardware competition. Electronically signed by: Florian Woods MD 06/09/23 23:20 PM
--- NOTE | 2023-06-10 00:46 | History & Physical Report ---
Date of Service June 10, 2023 Assessment & Plan (1) Confusion: Plan: 72yo male with history of prior CVA, mild cognitive impairment as well as CAD, AF on Eliquis and HFrEF d/t ischemic cardiomyopathy presenting from home with confusion. As above, patient with increased confusion, slow to answer questions as well as urinary incontinence. Unwitnessed fall in the shower prior to arrival as well as one episode of vomiting. Presently patient is oriented only to self. He is able to answer some questions and follow simple commands but cannot provide meaningful history. Ddx to include seizure, possible UTI. Do not strongly suspect new CVA. Patient has been given Keppra 1500mg IV in the ER -Admit to medical with telemetry -Maintain seizure precautions for now -Neuro checks per protocol -Awaiting UA - not yet collected -Check Covid-19 test -Check Ammonia, Creatine kinase, Digoxin level -Frequent orientation, ambulation with assistance as needed and delirium prevention strategies -Gentle hydration with LR at 80mL/hr x 1L (2) Atrial fibrillation, permanent: Plan: Chronic. HR elevated at present at 117bpm -Continue Metoprolol 50mg po BID -Continue Eliquis anticoagulation -Continue Digoxin - level ordered (3) CKD (chronic kidney disease) stage 3, GFR 30-59 ml/min: Plan: BUN and Cr slightly higher than previous but within baseline range -Gentle IVF with LR at 80mL/hr x 1L -Repeat chemistry in AM -Avoid nephrotoxic agents -Renal dosing where needed (4) Chronic systolic CHF (congestive heart failure): Plan: Appears to be euvolemic to slightly hypovolemic on exam. -Hold Entresto and Spironolactone for now as patient appears to be slightly dry and blood pressure is borderline low -Continue Metoprolol -Continue Jardiance (5) Hypothyroidism: Plan: Chronic. Stable. TSH=1.851 -Continue Synthroid 75 mcg po daily (6) CAD (coronary artery disease): Plan: Patient denies chest pain. No ischemic findings on EKG. Troponin is within normal limits -Continue Ticagrelor 90mg po BID -Continue Atorvastatin F/E/N - LR at 80mL/hr x 1L, electrolytes WNL - checking Mg and PO4 x 1 - replete as needed, regular diet as tolerated with aspiration precautions Ppx - On Eliquis anticoagulation for h/o AFib Code - Full per discussion with son Dispo - Observation to medical with telemetry History of Present Illness Chief Complaint: confusion Primary Care Provider: Thi Montaño MD Sharath Delgado is a 72yo male with history of prior CVA, mild cognitive impairment, CAD, atrial fibrillation on anticoagulation with Eliquis presenting from home with some confusion. History obtained from son, Gasper and chart review. Son reports that he returned home from work around 18:00 and the patient was found sitting in a chair in the living room covered in Goldfish crackers and incontinent of urine. He was also more confused and speaking slowly. His son helped him to the shower to get cleaned up. 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 His son kept checking on him and patient kept saying "i'm getting out soon". His son then heard a "bump" sound and patient was found sitting on the floor of the shower. He then developed nausea and had one episode of vomiting. Son reports no obvious signs of stroke such as facial droop or unilateral weakness. Patient with no recollection of events prior to arrival. He went to a speech therapy appointment and does not recall being there. He also was unable to state his name and birthdate in the ER which is abnormal for him. Patient offers no additional history. When asked about events that brought him to the ER he blows a raspberry and says "everything is perfectly clear". He denies fever, chills, chest pain, cough, SOB, abdominal pain, nausea, vomiting, diarrhea or constipation. No additional complaints. In the ER he is afebrile, mildly tachycardic with HR of 102, blood pressure 96/61 ER Course: Keppra 1500mg IV Zofran 4mg IV NSS x 500mL Allergies Allergy/AdvReac Type Severity Reaction Status Date / Time donepezil Allergy Unknown SEE COMMENT Verified 06/04/23 11:32 duloxetine [From Cymbalta] Allergy Unknown SEE COMMENT Verified 06/04/23 11:32 Home Medications Medication Instructions Recorded Confirmed Type nitroglycerin 0.4 mg sublingual 0.4 mg sublingual UD PRN Chest Pain 12/31/17 06/09/23 History tablet (Nitrostat) atorvastatin 80 mg tablet 80 mg PO HS #90 tabs 04/03/22 06/09/23 Rx digoxin 125 mcg (0.125 mg) tablet 125 mcg PO HS #90 tabs 05/03/23 06/09/23 Rx apixaban 5 mg tablet (Eliquis) 5 mg PO BID #0 tabs 05/08/23 06/09/23 Rx ticagrelor 90 mg tablet (Brilinta) 90 mg PO BID #0 tabs 05/08/23 06/09/23 Rx allopurinol 100 mg tablet 100 mg PO QAM 05/28/23 06/09/23 History bumetanide 2 mg tablet 2 mg PO QAM 05/28/23 06/09/23 History sacubitril 97 mg-valsartan 103 mg 0.5 tab PO AMHS 05/28/23 06/09/23 History tablet empagliflozin 10 mg tablet 10 mg PO QAM 06/09/23 06/09/23 History (Jardiance) levothyroxine 75 mcg tablet 75 mcg PO .DAILY@0630 06/09/23 06/09/23 History (Synthroid) metoprolol succinate 50 mg 50 mg PO AMHS 06/09/23 06/09/23 History tablet,extended release 24 hr modafinil 100 mg tablet 100 mg PO QAM 06/09/23 06/09/23 History spironolactone 25 mg tablet 12.5 mg PO QAM 06/09/23 06/09/23 History Past Med/Surg History Medical History Generalized weakness Edema Wound of left leg Elevated serum creatinine Acute on chronic systolic (congestive) heart failure Pulmonary edema Atrial fibrillation with rapid ventricular response Heart failure with mid-range ejection fraction (HFmEF) Enlarged prostate Kidney disease Facial droop Abnormal LFTs Facial droop due to acute cerebrovascular accident (CVA) Acute cerebrovascular accident (CVA) CHF exacerbation Hypoxia Pulmonary edema Acute kidney injury Altered mental state Acute CVA (cerebrovascular accident) Transaminitis Exposure to COVID-19 virus Bronchitis Memory loss due to CVA Myocardial Infarction [facility]- CATH- STENT- FOLLOWS WITH DR. BAKER Osteoarthritis Degenerative disc disease Tinnitus Sleep apnea NO CPAP Aneurysm BRAIN 2007- [facility] /UNSURE OF SIZE- FOLLOWS DR. EATON Lumbar radiculopathy Acute respiratory failure with hypoxia Elevated TSH Chronic systolic heart failure H/O arterial ischemic stroke residual cognitive impairment. APR 25 2008/ [facility] /PLACED ON BLOOD THINNER Atrial flutter with rapid ventricular response Nasal septal deviation Hypertension Surgical History H/O neck surgery History of left cataract surgery Aspiration into airway PER PATIENT, THIS HAPPENED AFTER E.T TUBE CAME OUT IN RECOVERY, THINKS IT WAS 2005, DOES NOT REMEMBER WHAT PROCEDURE BUT THINKS IT WAS AT [facility]- POOR HISTORIAN (HX STROKE) History of colonoscopy Hx of umbilical hernia repair History of deviated nasal septum WITH REPAIR History of cardioversion [facility] 2017 S/P cardiac catheterization ONE @ [facility]/ ONE @ [facility] - 2016 & 2017- [facility]- FROM [place] H/O hernia repair Family History Mother Diabetes Depression Unknown No problems noted. Father Myocardial infarction Grandfather (Paternal) Myocardial infarction Brother Myocardial infarction Sister Depression Other No family history of adverse response to anesthesia No family history of bleeding disorder Denies family history of Colon cancer Ovarian cancer Prostate cancer Breast cancer Social History Smoking Status: Former smoker Age Started Using Tobacco: 22; Age Quit Using Tobacco: 37; Cigarettes Per Day: 30 YEARS AGO; Second Hand Exposure: No; Do You Dip or Chew Tobacco: No; Hx Alcohol Use: No Hx Substance Use: Yes Last Used Substance: Unknown Preferred Language: Ghanaian Communication Ability: Effective Visual Impairment: No Limitations Hearing Ability: Normal Gas Leak Inspector Helper Required: No Beliefs That Will Affect Care: None marital status: Current Living Situation: Alone current occupational status: retired and disabled How many Children do You have: 1 Feels Safe at Home: Yes Childhood Exposure to Second-Hand Smoke: Yes Dental Care, Regularly: Yes Physical Activity Frequency: Daily Seatbelt Use: always Sunscreen Use: No Assistive Devices: Glasses Review of Systems Review of Systems: All systems reviewed & are unremarkable except as noted in HPI & below Physical Exam Physical Exam: General: patient resting comfortably, NAD, answering questions, able to state name but not location or date. Skin: warm, dry, intact, no rashes or lesions HEENT: NC/AT, PERRL, EOMI, anicteric sclera, conjunctiva without injection, external ear normal to inspection and nontender, nares patent, moist mucus membranes, dentition intact, no oropharyngeal lesions, neck supple, trachea midline, no LAD, no thyromegaly, no JVD Heart: +S1/S2, irregularly irregular, tachycardic, no m/r/g Lungs: equal air entry bilaterally, no rales/rhonchi/wheezes Abd: +BS, soft, NT/ND, no masses/organomegaly/ascites Ext: warm, 2+ pulses in UE/LE bilaterally, no clubbing/cyanosis or edema Neuro: nonfocal, patient AA&O to self, speech slow but appropriate, no facial droop, moving all extremities on command with equal strength 5/5 Results & Data Results & Data Vital Signs (Past 12 Hours) Vital Signs Temp Pulse Resp BP Pulse Ox O2 Del Method 06/09/23 22:00 102 H 22 94 Room Air 06/09/23 21:49 114 H 20 96/61 L 06/09/23 21:36 36.8 C 84 18 110/48 L 94 Room Air Laboratory Results Laboratory Results WBC 10.01 K/ul (4.8-10.8) 06/09/23 22:16 RBC 4.74 M/uL (4.70-6.10) 06/09/23 22:16 Hgb 15.4 g/dl (14.0-18.0) 06/09/23 22:16 Hct 46.2 % (42.0-52.0) 06/09/23 22:16 MCV 97.5 fL (80.0-100.0) 06/09/23 22:16 MCH 32.5 pg (25.0-34.0) 06/09/23 22:16 MCHC 33.3 g/dL (32.0-36.0) 06/09/23 22:16 RDW Std Deviation 48.2 fL (36.4-46.3) H 06/09/23 22:16 RDW Coeff of Sonja 13.5 % (11.5-14.5) 06/09/23 22:16 Plt Count 272 K/uL (130-400) 06/09/23 22:16 MPV 10.5 fL (9.4-12.4) 06/09/23 22:16 Immature Gran % (Auto) 0.6 % 06/09/23 22:16 Neut % (Auto) 84.3 % 06/09/23 22:16 Lymph % (Auto) 5.7 % 06/09/23 22:16 [place] % (Auto) 8.0 % 06/09/23 22:16 Eos % (Auto) 0.5 % 06/09/23 22:16 Baso % (Auto) 0.9 % 06/09/23 22:16 Neut # (Auto) 8.44 K/uL (1.40-6.50) H 06/09/23 22:16 Lymph # (Auto) 0.57 K/uL (1.20-3.40) L 06/09/23 22:16 [place] # (Auto) 0.80 K/uL (0.11-0.59) H 06/09/23 22:16 Eos # (Auto) 0.05 K/uL (0.00-0.50) 06/09/23 22:16 Baso # (Auto) 0.09 K/uL (0.00-0.20) 06/09/23 22:16 Immature Gran # (Auto) 0.06 K/uL (0.01-0.20) 06/09/23 22:16 Sodium 135 mmol/L (136-145) L 06/09/23 22:16 Potassium 3.8 mmol/L (3.5-5.1) 06/09/23 22:16 Chloride 96 mmol/L (98-107) L 06/09/23 22:16 Carbon Dioxide 28 mmol/L (21-32) 06/09/23 22:16 Anion Gap 11 (3-11) 06/09/23 22:16 BUN 33 mg/dl (6-23) H 06/09/23 22:16 Creatinine 2.14 mg/dl (0.6-1.4) H 06/09/23 22:16 Est Cr Clr Drug Dosing Not Reportable 06/09/23 22:16 Est GFR ( Amer) 34.3 ml/min 06/09/23 22:16 Est GFR (Non-Af Amer) 29.6 ml/min 06/09/23 22:16 BUN/Creatinine Ratio 15.4 (10-20) 06/09/23 22:16 Glucose 118 mg/dl (70-99(Fasting)) H 06/09/23 22:16 POC Glucose 120 mg/dl (70-99) H 06/09/23 22:50 Calcium 9.7 mg/dl (8.6-10.3) 06/09/23 22:16 Magnesium 1.8 mg/dl (1.7-2.4) 06/09/23 22:16 Total Bilirubin 1.2 mg/dl (0.2-1.0) H 06/09/23 22:16 AST 14 U/L (13-39) 06/09/23 22:16 ALT 12 U/L (7-52) 06/09/23 22:16 Alkaline Phosphatase 60 U/L (34-104) 06/09/23 22:16 Total Protein 7.7 gm/dl (6.0-8.3) 06/09/23 22:16 Albumin 4.5 gm/dl (3.4-5.0) 06/09/23 22:16 Globulin 3.2 gm/dl (2.5-4.0) 06/09/23 22:16 Albumin/Globulin Ratio 1.4 (0.9-2) 06/09/23 22:16 TSH 1.851 uIu/ml (0.300-4.500) 06/09/23 22:[address] 06/09/23 22:10 Exam(s): CT C SPINE EXAM: CT Cervical Spine Without Intravenous Contrast CLINICAL HISTORY: Reason for exam: fall. TECHNIQUE: Axial computed tomography images of the cervical spine without intravenous contrast. CTDI is 26.42 mGy and DLP is 584.74 mGy-cm. Automated exposure control was utilized for the study. A dose lowering technique was utilized adhering to the principles of ALARA. COMPARISON: No relevant prior studies available. FINDINGS: The vertebral body heights are maintained. The craniocervical junction is intact. The atlanto-dens interval is maintained. The dens is intact. ACDF at C4-C6. No CT evidence of hardware competition. There is no spondylolisthesis. Multilevel cervical spondylosis and degenerative disc disease. Straightening of the cervical lordosis. The unenhanced neck soft tissues are grossly unremarkable. The visualized lung apices are grossly clear. IMPRESSION: No acute fracture or subluxation of the cervical spine. ACDF at C4-C6. No CT evidence of hardware competition. Electronically signed by: Florian Woods MD 06/09/23 23:[address] 06/09/23 22:10 Exam(s): CT HEAD Without Contrast EXAM: CT Head Without Intravenous Contrast CLINICAL HISTORY: Reason for exam: h/o CVA on thinners, fall. TECHNIQUE: Axial computed tomography images of the head/brain without intravenous contrast. CTDI is 61.67 mGy and DLP is 374.65 mGy-cm. Automated exposure control was utilized for the study. A dose lowering technique was utilized adhering to the principles of ALARA. COMPARISON: Brain MRI April 25, 2021. FINDINGS: No acute intracranial hemorrhage. No midline shift or mass effect. Encephalomalacia in the RIGHT parietal lobe, consistent with old infarct. Age-related cerebral volume loss. Periventricular and subcortical white matter hypoattenuation, consistent with chronic microangiopathy. The visualized orbits appear grossly unremarkable. The calvarium is intact. The visualized paranasal sinuses and mastoid air cells are grossly clear. IMPRESSION: No acute intracranial hemorrhage, midline shift, or mass effect. Encephalomalacia in the RIGHT parietal lobe, consistent with old infarct. Electronically signed by: Florian Woods MD 06/09/23 23:12 PM ECG Additional Comments: EKG with AF at 111bpm, left axis, QRS=78, WEn=164, no acute ischemic changes. Similar to prior study PG Care Time/CCT Total # of Minutes Spent Total Time Spent with Patient: Total time spent is greater than 50% in coordination of care (as documented) at patient's floor/unit and/or counseling patient: Coding Level of Care Code 62248 INT INP/OBS CARE 3/75MIN Diagnoses Confusion R41.0 Atrial fibrillation, permanent I48.21 CKD (chronic kidney disease) stage 3, GFR 30-59 ml/min N18.30 Chronic systolic CHF (congestive heart failure) I50.22 Hypothyroidism E03.9 Coronary artery disease of [place] artery of [place] heart with stable angina pectoris I25.118 Coronary Disease-Associated Artery/Lesion type: [place] artery [place] vs. transplanted heart: [place] heart Associated angina: with stable angina (6) CAD (coronary artery disease) Coronary Disease-Associated Artery/Lesion type: [place] artery [place] vs. transplanted heart: [place] heart Associated angina: with stable angina Qualified Code(s): I25.118 - Atherosclerotic heart disease of [place] coronary artery with other forms of angina pectoris
[2023-06-10] MEDS: SODIUM CHLORIDE 0.9% 500 ML IV ONE (00:49)
[2023-06-10] MEDS: LACTATED RINGER'S 1,000 ML IV SCH (02:49)
[2023-06-10 05:45] LABS: Appearance Urine Clear (Clear); Bilirubin Urine Negative (Negative); Blood Urine Negative (Negative); Color Urine Yellow; Glucose Urine UA Negative (Negative); Ketones Urine Negative (Negative); Leukocyte Esterase Urine Negative (Negative); Nitrite Urine Negative (Negative); Protein Urine Negative (Negative); Specific Gravity Urine 1.015 (1.000-1.030); Urobilinogen Urine Negative (Negative)
[2023-06-10] MEDS: LEVOTHYROXINE SODIUM 75 MCG TABLET PO SCH (06:35)
--- NOTE | 2023-06-10 07:17 | XRay Report ---
XR chest 1V portable HISTORY: weakness COMPARISON: Chest 04/21/2023. FINDINGS: No pneumothorax. No pleural effusions. The heart remains enlarged. No new focal lung consol idations to suggest a pneumonia. No evidence for pulmonary edema. Cervical spinal fusion hardware is again noted. Degenerative changes within the shoulders. IMPRESSION: Stable cardiomegaly. Otherwise, no acute process within the chest. ACT 112: Negative or not required by law. Electronically signed by: Obi Parkinson M.D. 06/10/2023 7:16 AM
[2023-06-10] MEDS: TICAGRELOR 90 MG TAB PO SCH (08:58)
[2023-06-10] MEDS: modafiniL 100 MG TAB PO SCH (08:58)
[2023-06-10] MEDS: APIXABAN 5 MG TABLET PO SCH (08:58)
[2023-06-10] MEDS: allopurinoL 100 MG TAB PO SCH (08:58)
[2023-06-10] MEDS: METOPROLOL SUCC 50MG EXT REL TAB PO SCH (08:59)
[2023-06-10] MEDS: EMPAGLIFLOZIN 10 MG TAB PO SCH (08:59)
[2023-06-10 15:04] LABS: Influenza A virus by PCR Negative (Neg); Influenza B virus by PCR Negative (Neg); RSV by PCR Negative (Neg); SARS CoV2 RNA(COVID-19) Ceph NEGATIVE (Negative)
--- NOTE | 2023-06-10 15:16 | Hospitalist Progress Note ---
Date of Service June 10, 2023 Assessment & Plan (1) Confusion: Plan: etiology uncertain extensive w/u to date including cxr, u/a, dig level, ammonia, etc without source of infection or metabolic abnormality checked COVID/flu/RSV - returned negative; however, I do believe he has a URI given his nasal congestion/cough/sneezing/etc certainly a viral process could have caused some alteration but perhaps not to the level his son saw yesterday checked VBG - no hypercarbia check blood cx's - r/o occult bacteremia since w/u thus far negative, and in light of prior strokes, will obtain MRI brain - r/o subacute CVA also check EEG - r/o seizure - in light of altered MS/urinary incontinence that was seen by his son serial exams avoid sedatives (2) Atrial fibrillation, permanent: Plan: Rates acceptable overnight Continue Metoprolol 50mg po BID Continue Eliquis Continue Digoxin - level acceptable (3) CKD (chronic kidney disease) stage 3, GFR 30-59 ml/min: Plan: with mild superimposed DREW Peak Cr 2.1 this afternoon 1.9 baseline 1.6 to 1.9 check BMP am for stability stop IV fluids after current bag given his systolic CHF (4) Chronic systolic CHF (congestive heart failure): Plan: compensated today cont to hold Entresto and Spironolactone given his mild hypotension continue Metoprolol continue Jardiance (5) Hypothyroidism: Plan: Stable. TSH=1.851 Continue Synthroid 75 mcg po daily (6) CAD (coronary artery disease): Plan: No evidence of ACS Troponin is within normal limits Continue Ticagrelor 90mg po BID Continue Atorvastatin Continue metoprolol (7) Pain of left great toe: Plan: no active synovitis on exam but [id number] he does have pain during prior hospitalization he had podagra from gout due to falling in shower check x-rays, r/o fracture (8) URI (upper respiratory infection): Plan: developed such in the last 1-2 days COVID/flu/RSV negative if any worsening in symptoms could consider complete BioFire but hold off for now (9) Cognitive impairment: Plan: baseline memory impairment - likely on basis of vascular disease (prior strokes, etc) Plan PT, OT evals while here daughter updated at bedside Admission and Anticipated Discharge Date Admission Date: June 10, 2023 Subjective patient resting comfortably in bed he had just finished working with PT/OT daughter Yina was at bedside he was jovial, interactive, asking questions, etc only complaint was that of sinus/nasal congestion which started 1-2 days ago he had outpatient speech therapy yesterday and apparently was sneezing occasional cough appetite is good today patient has been staying with his son who has 2 young children no obvious sick contacts per his daughter Review of Systems Review of Systems: gen - no fevers or chills cv - no chest pain pulm - no dyspnea GI - no abd pain/nausea/emesis - no dysuria musculo - no myalgias; left great toe pain only Physical Exam Physical Exam: gen - looks tired, appears ill and sounds congested, awake/alert neck - no JVD mouth - MMM heart - irregular, s1 s2, no murmur lungs - CTA b/l abd - soft NT ND BS+ ext - no edema, pulses 2+ b/l musculo - left great toe MTP joint tender to palpation but no synovitis; no deformities or synovitis any other large or small joint psych - mental status is similar to the last time I saw him in early April 2023 (prior hospitalization) neuro - strength 5/5 x 4 exts; no facial droop; speech fluent/clear; no pronator drift skin - no rash Results & Data Results & Data Vital Signs (Past 12 Hours) Vital Signs Pulse Pulse Pulse Resp BP Pulse Ox O2 Del Method 06/10/23 13:30 66 17 90/53 L 97 Room Air 06/10/23 12:29 78 18 111/55 L 95 Room Air 06/10/23 10:53 85 18 84/55 L 95 Room Air 06/10/23 09:03 94 H 18 101/55 L 95 Room Air 06/10/23 07:10 93 H 06/10/23 04:51 100 H 18 99/51 L 93 Room Air Laboratory Results Laboratory Results - last 24 hr 06/10/23 06/10/23 06/10/23 05:10 14:15 16:02 VBG pH 7.36 VBG pCO2 56 H VBG pO2 24 VBG HCO3 32 VBG O2 Saturation < 60.0 VBG Base Excess 4.6 Sodium 137 Potassium 3.6 Chloride 97 L Carbon Dioxide 29 Anion Gap 11 BUN 30 H Creatinine 1.95 H Est Cr Clr Drug Dosing 36.0 Est GFR ( Amer) 38.4 Est GFR (Non-Af Amer) 33.2 BUN/Creatinine Ratio 15.4 Glucose 92 Calcium 9.5 Procalcitonin 0.11 Urine Color Yellow Urine Appearance Clear Urine pH 5.0 Ur Specific Mayer 1.015 Urine Protein Negative Urine Glucose (UA) Negative Urine Ketones Negative Urine Blood Negative Urine Nitrite Negative Urine Bilirubin Negative Urine Urobilinogen Negative Ur Leukocyte Esterase Negative SARS-CoV-2 (PCR) NEGATIVE Influenza Type A (PCR) Negative Influenza Type B (PCR) Negative RSV (RT-PCR) Negative PG Care Time/CCT Total # of Minutes Spent Total Time Spent with Patient: Total time spent is greater than 50% in coordination of care (as documented) at patient's floor/unit and/or counseling patient: Coding Level of Care Code 51926 SUB INP/OBS CARE 3/50MIN Diagnoses Confusion R41.0 Atrial fibrillation, permanent I48.21 CKD (chronic kidney disease) stage 3, GFR 30-59 ml/min N18.30 Chronic systolic CHF (congestive heart failure) I50.22 Hypothyroidism E03.9 Coronary artery disease 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 transplanted heart: [place] heart Pain of left great toe M79.675 URI (upper respiratory infection) J06.9 Cognitive impairment R41.89 (6) CAD (coronary artery disease) Associated angina: with stable angina Coronary Disease-Associated Artery/Lesion type: [place] artery [place] vs. transplanted heart: [place] heart Qualified Code(s): I25.118 - Atherosclerotic heart disease of [place] coronary artery with other forms of angina pectoris
[2023-06-10 16:31] LABS: Base Excess VBG 4.6 mEq/L; HCO3 VBG 32 mmol/L; Oxygen Saturation VBG < 60.0 %; PCO2 VBG 56 mmHg (38-50); PO2 VBG 24 mmHg; pH VBG 7.36 (7.36-7.41)
--- NOTE | 2023-06-10 16:48 | XRay Report ---
LEFT FOOT 3 VIEWS CLINICAL HISTORY: Fall with left foot injury. FINDINGS: 3 views of the left foot are obtained. No prior studies are available for comparison at the time of dictation. The skeletal structures are osteopenic. No fracture is seen. Mild degenerative ch francisca is noted throughout the foot. There are tiny dorsal and plantar heel spurs. The overlying soft t issues are within normal limits. IMPRESSION: No acute bony abnormality is identified. Electronically signed by: Daniel Hernandez M.D. 06/10/2023 4:46 PM
[2023-06-10 16:54] LABS: BUN Creatinine Ratio 15.4 (10-20); Calcium 9.5 mg/dl (8.6-10.3); Est GFR (African American) 38.4 ml/min; Est GFR (Non-African American) 33.2 ml/min; Potassium 3.6 mmol/L (3.5-5.1)
[2023-06-10] MEDS: DIGOXIN 0.125 MG TAB PO SCH (21:45)
[2023-06-10] MEDS: ATORVASTATIN 40 MG TAB PO SCH (21:48)
--- NOTE | 2023-06-11 05:39 | Electrocardiogram Report ---
Test Reason : Blood Pressure : / mmHG Vent. Rate : 111 BPM Atrial Rate : 000 BPM P-R Int : 000 ms QRS Dur : 078 ms QT Int : 294 ms P-R-T Axes : 000 -36 265 degrees QTc Int : 399 ms Atrial fibrillation with rapid ventricular response with premature ventricular or aberrantly conducte d complexes Left axis deviation Anterior infarct , age undetermined Nonspecific T wave abnormality Abnormal ECG When compared with ECG of 21-APR-2023 15:09, No significant change was found Confirmed by Burton Russell ([id number]) on 06/11/2023 5:39:33 AM Referred By: REFERRED SELF Confirmed By:Burton Russell
[2023-06-11 07:55] LABS: Hematocrit (blood only) 36.1 % (42.0-52.0); Hemoglobin 12.3 g/dl (14.0-18.0); Mean Corpuscular Hemoglobin 32.8 pg (25.0-34.0); Mean Corpuscular Hgb Conc 34.1 g/dL (32.0-36.0); Mean Corpuscular Volume 96.3 fL (80.0-100.0); Mean Platelet Volume 10.4 fL (9.4-12.4); Platelet Count 185 K/uL (130-400); RDW Coefficient of Variation 13.6 % (11.5-14.5); RDW Standard Deviation 48.5 fL (36.4-46.3); Red Blood Count 3.75 M/uL (4.70-6.10); White Blood Count 6.99 K/ul (4.8-10.8)
[2023-06-11 08:11] LABS: Albumin Level 3.6 gm/dl (3.4-5.0); BUN Creatinine Ratio 15.3 (10-20); Bilirubin Direct 0.2 mg/dl (0-0.2); Bilirubin,Total 1.2 mg/dl (0.2-1.0); Calcium 8.7 mg/dl (8.6-10.3); Creatinine Clr Calc Pharmacy 43.1 ml/min; Est GFR (African American) 47.7 ml/min; Est GFR (Non-African American) 41.2 ml/min; Potassium 3.4 mmol/L (3.5-5.1); Total Protein 6.1 gm/dl (6.0-8.3)
--- NOTE | 2023-06-11 08:14 | Electroencephalogram ---
EEG Procedure Note Date of Service June 11, 2023 Start / End Times Start Time: 616 End Time: 636 Referring Physician Lan Barnes MD History Patient is a 72-year-old with episodic confusion Home Medication List Medication Instructions Recorded Confirmed Type nitroglycerin 0.4 mg sublingual 0.4 mg sublingual UD PRN Chest Pain 12/31/17 06/09/23 History tablet (Nitrostat) atorvastatin 80 mg tablet 80 mg PO HS #90 tabs 04/03/22 06/09/23 Rx digoxin 125 mcg (0.125 mg) tablet 125 mcg PO HS #90 tabs 05/03/23 06/09/23 Rx apixaban 5 mg tablet (Eliquis) 5 mg PO BID #0 tabs 05/08/23 06/09/23 Rx ticagrelor 90 mg tablet (Brilinta) 90 mg PO BID #0 tabs 05/08/23 06/09/23 Rx allopurinol 100 mg tablet 100 mg PO QAM 05/28/23 06/09/23 History bumetanide 2 mg tablet 2 mg PO QAM 05/28/23 06/09/23 History sacubitril 97 mg-valsartan 103 mg 0.5 tab PO [facility] 05/28/23 06/09/23 History tablet empagliflozin 10 mg tablet 10 mg PO QAM 06/09/23 06/09/23 History (Jardiance) levothyroxine 75 mcg tablet 75 mcg PO .DAILY@0630 06/09/23 06/09/23 History (Synthroid) metoprolol succinate 50 mg 50 mg PO [facility] 06/09/23 06/09/23 History tablet,extended release 24 hr modafinil 100 mg tablet 100 mg PO QAM 06/09/23 06/09/23 History spironolactone 25 mg tablet 12.5 mg PO QAM 06/09/23 06/09/23 History Inpatient Medication List Allopurinol ([facility]ol 100 Mg Tab) [facility] [place] Stop: 07/10/23 08:59 Last Admin: 06/10/23 08:58 Dose: 100 mg Documented By: SKChristos Apixaban (Apixaban 5 Mg Tablet) 5 mg PO BID RYLIE Stop: 07/10/23 08:59 Last Admin: 06/10/23 21:47 Dose: 5 mg Documented By: Admin: 06/10/23 08:58 Dose: 5 mg Documented By: JHONATAN Atorvastatin Calcium (Atorvastatin 40 Mg Tab) 80 mg PO [facility] Stop: 07/10/23 20:59 Last Admin: 06/10/23 21:48 Dose: 80 mg Documented By: NINOSKA Digoxin (Digoxin 0.125 Mg Tab) 0.125 mg PO [facility] Stop: 07/10/23 20:59 Last Admin: 06/10/23 21:45 Dose: 0.125 mg Documented By: NINOSKA Empagliflozin (Empagliflozin 10 Mg Tab) [address] [facility] Stop: 07/10/23 08:59 Last Admin: 06/10/23 08:59 Dose: 10 mg Documented By: JHONATAN Levothyroxine Sodium (Levothyroxine Sodium 75 Mcg Tablet) [facility] Stop: 07/10/23 06:29 Last Admin: 06/11/23 05:27 Dose: 75 mcg Documented By: Admin: 06/10/23 06:35 Dose: 75 mcg Documented By: Metoprolol Succinate (Metoprolol Succ 50mg Ext Rel Tab) 50 mg PO BID REPLACED BY [facility] Stop: 07/10/23 08:59 Last Admin: 06/10/23 21:44 Dose: 50 mg Documented By: Admin: 06/10/23 08:59 Dose: 50 mg Documented By: JHONATAN Modafinil (Modafinil 100 Mg Tab) 100 [facility] [place] Stop: 07/10/23 08:59 Last Admin: 06/10/23 08:58 Dose: 100 mg Documented By: JHONATAN Ticagrelor (Ticagrelor 90 Mg Tab) 90 mg PO BID REPLACED BY [facility] Stop: 07/10/23 08:59 Last Admin: 06/10/23 21:45 Dose: 90 mg Documented By: Admin: 06/10/23 08:58 Dose: 90 mg Documented By: JHONATAN Discontinued Medications Sodium Chloride (Nss) 500 mls @ 999 mls/hr IV .Q31M ONE Stop: 06/10/23 00:30 Last Infusion: 06/10/23 01:37 Dose: Infused Documented By: Admin: 06/10/23 00:49 Dose: 999 mls/hr Documented By: Lactated Ringer's (Lr) 1,000 mls @ 80 mls/hr IV .[id number] RYLIE Stop: 06/10/23 14:33 Last Infusion: 06/10/23 15:50 Dose: Infused Documented By: Admin: 06/10/23 02:49 Dose: 80 mls/hr Documented By: Levetiracetam (Levetiracetam 500 Mg/5 Ml Vial) 1,500 mg IV NOW STA Stop: 06/09/23 22:12 Last Admin: 06/09/23 23:15 Dose: 1,500 mg Documented By: Ondansetron HCl (Ondansetron Inj 2 Mg/Ml 2 Ml Vial) 4 mg IV NOW STA Stop: 06/09/23 22:11 Last Admin: 06/09/23 23:15 Dose: 4 mg Documented By: Description This is a 21 electrode EEG with a single channel dedicated to limited EKG. The electrodes were placed in accordance with the International 10-20 system. Interpretation The predominant background activity consists of a fairly well modulated 8 Hz activity, of up to 50 mV in amplitude,seen symmetrically distributed over the posterior head regions bilaterally. This activity attenuates with eye-opening and other alerting procedures. Photic stimulation was performed and elicited no change in the background activity and no abnormal responses were seen. Hyperventilation was not performed. A minimal amount of muscle and movement artifact activity contaminated the recording and did not hinder interpretation to any significant degree. Throughout the waking portion of the recording, no focal abnormalities, abnormal slow activity, or potentially epileptogenic discharges were seen. The patient entered the drowsy state with no further activation. In summary, this EEG was normal during wakefulness and drowsiness. No focal abnormalities, potentially epileptogenic discharges, or abnormal slow activity were seen. Clinical Correlation The abscence of potentially epileptogenic activity does not exclude a seizure disorder, since interictally, EEGs can be normal. Clinical correlation is required. [facility] EEG Procedure Codes Indication for Procedure (1) Episodic confusion: Neurology Neurology: 85588 EEG include record awake & drowsy
[2023-06-11] MEDS: POTASSIUM CHLORIDE CRTAB 20 MEQ TABCR PO STA (09:36)
--- NOTE | 2023-06-11 13:56 | Magnetic Resonance Report ---
MRI OF THE BRAIN WITHOUT IV CONTRAST CLINICAL HISTORY: Change in mental status. COMPARISON STUDY: CT of the brain dated 06/09/2023. MRI of the brain dated 04/25/2021. TECHNIQUE: MRI of the brain was performed utilizing various T1 and T2-weighted sequences in the axial , sagittal, and coronal planes. IV contrast was not administered for this examination. FINDINGS: Brain parenchyma: There is age-related involutional change noting moderate to advanced confluent subc ortical and periventricular microangiopathic disease. A focus of high right parietal encephalomalacia is consistent with a remote insult. There is also a small chronic left frontal lobe infarct. A chron ic lacunar infarct is noted in the ginger. There is no hemorrhage or mass effect. There are scattered f oci of nonspecific susceptibility abnormality. There is no restricted diffusion to suggest acute isch emia. [place]aza-white matter differentiation is preserved. No extra-axial fluid collection is seen. The ce rebellar tonsils are normal in configuration. Ventricles, sulci, and cisterns: Prominent secondary to involutional change. Pituitary and sella: Unremarkable. Intracranial vasculature: Normal flow voids are maintained at the skull base. Orbits: The bony orbits are grossly intact. Orbital contents are normal in appearance noting bilatera l ocular lens implant. Sinuses and mastoids: There is moderate mucosal thickening in the maxillary sinuses noting an air-flu id level on the left. There is moderate mucosal thickening within the ethmoid sinuses. Mild mucosal t hickening is seen in the frontal and sphenoid sinuses. The metatarsals are clear. Calvarium: Unremarkable. Cervical cord: Partially visualized cervical spinal cord is normal in morphology and signal intensity . IMPRESSION: Chronic infarcts as above with no acute intracranial abnormality. ACT 112: Negative or not required by law. Electronically signed by: Daniel Hernandez M.D. 06/11/2023 1:54 PM
[2023-06-11] MEDS: predniSONE 10 MG TABLET PO SCH (17:57)
--- NOTE | 2023-06-11 18:25 | XRay Report ---
XR chest 2V PA/lateral HISTORY: URI, cough, RLL rales COMPARISON: Chest 06/09/2023. FINDINGS: No pneumothorax. No pleural effusions. No focal lung consolidations to suggest a pneumonia. No evidence for pulmonary edema. The heart remains mildly enlarged. Cervical spinal fusion hardware again noted. No acute fractures. IMPRESSION: No significant change compared to the prior study. No acute process. ACT 112: Negative or not required by law. Electronically signed by: Obi Parkinson M.D. 06/11/2023 6:23 PM
--- NOTE | 2023-06-11 20:11 | Hospitalist Progress Note ---
Date of Service June 11, 2023 Assessment & Plan (1) Confusion: Plan: overall improved exact etiology uncertain but suspect acute metabolic encephalopathy in the setting of a URI (MRI brain with sinusitis, URI symptoms, etc) extensive w/u to date including cxr, u/a, dig level, ammonia, etc without source of infection or metabolic abnormality MRI brain without acute CVA - old CVAs seen only EEG w/o seizure focus checked COVID/flu/RSV - returned negative; however, I do believe he has a URI given his nasal congestion/cough/sneezing/etc certainly a viral process could have caused some alteration but perhaps not to the level his son saw yesterday checked VBG - no hypercarbia checked blood cx's - thus far negative re-eval tomorrow (2) Atrial fibrillation, permanent: Plan: Rates largely acceptable overnight Continue Metoprolol 50mg po BID Continue Eliquis Continue Digoxin - level acceptable (3) CKD (chronic kidney disease) stage 3, GFR 30-59 ml/min: Plan: with mild superimposed DREW Peak Cr 2.1 Cr 1.6 today baseline 1.6 to 1.9 IV fluids have been stopped he is eating/drinking BMP am for stability (4) Chronic systolic CHF (congestive heart failure): Plan: compensated cont to hold Entresto and Spironolactone today continue Metoprolol continue Jardiance (5) Hypothyroidism: Plan: Stable. 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 -- start prednisone 10mg daily recheck a uric acid level am (8) URI (upper respiratory infection): Plan: developed such in the last 3 days COVID/flu/RSV negative if any worsening in symptoms could consider complete BioFire but hold off for now MRI brain with sinus disease and an acute air-fluid level in the maxillary sinus consider short course of PO abx although still likely to be viral (9) Cognitive impairment: Plan: baseline memory impairment - likely on basis of vascular disease (prior strokes, etc) (10) NSVT (nonsustained ventricular tachycardia): Plan: 03/2023 echo with EF 30-35% during prior hospital stay in April he did have runs of NSVT asymptomatic then, and asymptomatic again this admission remains on beta leisa cont to monitor he should f/u with his 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 nuclear fuels research engineer to have discussion about whether he should have ICD given his persistently low EF Plan PT, OT evals completed yesterday questionable whether he is safe to return home or if he needs rehab again repeat evals tomorrow left voicemail message for his daughter, Yina, this evening 06/11 change observation status to full admission status Admission and Anticipated Discharge Date Admission Date: June 10, 2023 Subjective a.fib, rates are fast periodically with activity 15 beat run of NSVT as well during the visit he was resting comfortably eating fair-good only complaint is that of nasal congestion denies new complaints Review of Systems Review of Systems: gen - no fevers or chills cv - no chest pain or orthopnea GI - no abd pain/nausea/emesis pulm - mild cough musculo - still with L great toe pain Physical Exam Physical Exam: gen - looks better today neck - no JVD mouth - MMM voice - mildly hoarse heart - irregular, s1 s2, no murmur lungs - CTA b/l except minimal rales R base (dry, fine) abd - soft NT ND BS+ ext - no edema, pulses 2+ b/l musculo - left great toe MTP joint braiding machine tender to palpation although very little inflammation present over the joint psych - mental status at baseline (pleasant confusion) Results & Data Results & Data Vital Signs (Past 12 Hours) Vital Signs Temp Pulse Pulse Resp BP BP Pulse Ox 06/11/23 19:57 36.8 C 80 18 112/60 95 06/11/23 15:32 36.3 C L 77 16 102/62 96 06/11/23 15:32 104 H 06/11/23 10:58 37.1 C 90 16 111/71 95 06/11/23 09:20 O2 Del Method 06/11/23 19:57 Room Air 06/11/23 15:32 Room Air 06/11/23 15:32 06/11/23 10:58 Room Air 06/11/23 09:20 Room Air Laboratory Results Laboratory Results - last 24 hr 06/11/23 07:21 WBC 6.99 RBC 3.75 L Hgb 12.3 L D Hct 36.1 L MCV 96.3 MCH 32.8 MCHC 34.1 RDW Std Deviation 48.5 H RDW Coeff of Sonja 13.6 Plt Count 185 MPV 10.4 Sodium 137 Potassium 3.4 L Chloride 102 Carbon Dioxide 28 Anion Gap 7 BUN 25 H Creatinine 1.63 H D Est Cr Clr Drug Dosing 43.1 Est GFR ( Amer) 47.7 Est GFR (Non-Af Amer) 41.2 BUN/Creatinine Ratio 15.3 Glucose 108 H Calcium 8.7 Total Bilirubin 1.2 H Direct Bilirubin 0.2 AST 11 L ALT 7 Alkaline Phosphatase 46 Total Protein 6.1 D Albumin 3.6 Diagnostic Findings Brain MRI 06/11/23 07:00 MRI OF THE BRAIN WITHOUT IV CONTRAST CLINICAL HISTORY: Change in mental status. COMPARISON STUDY: CT of the brain dated 06/09/2023. MRI of the brain dated 04/25/2021. TECHNIQUE: MRI of the brain was performed utilizing various T1 and T2-weighted sequences in the axial, sagittal, and coronal planes. IV contrast was not administered for this examination. FINDINGS: Brain parenchyma: There is age-related involutional change noting moderate to advanced confluent subcortical and periventricular microangiopathic disease. A focus of high right parietal encephalomalacia is consistent with a remote insult. There is also a small chronic left frontal lobe infarct. A chronic lacunar infarct is noted in the ginger. There is no hemorrhage or mass effect. There are scattered foci of nonspecific susceptibility abnormality. There is no restricted diffusion to suggest acute ischemia. [place]-white matter differentiation is preserved. No extra-axial fluid collection is seen. The cerebellar tonsils are normal in configuration. Ventricles, sulci, and cisterns: Prominent secondary to involutional change. Pituitary and sella: Unremarkable. Intracranial vasculature: Normal flow voids are maintained at the skull base. Orbits: The bony orbits are grossly intact. Orbital contents are normal in appearance noting bilateral ocular lens implant. Sinuses and mastoids: There is moderate mucosal thickening in the maxillary sinuses noting an air-fluid level on the left. There is moderate mucosal thickening within the ethmoid sinuses. Mild mucosal thickening is seen in the frontal and sphenoid sinuses. The metatarsals are clear. Calvarium: Unremarkable. Cervical cord: Partially visualized cervical spinal cord is normal in morphology and signal intensity. IMPRESSION: Chronic infarcts as above with no acute intracranial abnormality. ACT 112: Negative or not required by law. Electronically signed by: Daniel Hernandez M.D. 06/11/2023 1:54 PM Chest X-Ray 06/11/23 17:11 XR chest 2V PA/lateral HISTORY: URI, cough, RLL rales COMPARISON: Chest 06/09/2023. FINDINGS: No pneumothorax. No pleural effusions. No focal lung consolidations to suggest a pneumonia. No evidence for pulmonary edema. The heart remains mildly enlarged. Cervical spinal fusion hardware again noted. No acute fractures. IMPRESSION: No significant change compared to the prior study. No acute process. ACT 112: Negative or not required by law. Electronically signed by: Obi Parkinson M.D. 06/11/2023 6:23 PM PG Care Time/CCT Total # of Minutes Spent Total Time Spent with Patient: Total time spent is greater than 50% in coordination of care (as documented) at patient's floor/unit and/or counseling patient: Coding Level of Care Code 72465 SUB INP/OBS CARE 3/50MIN Diagnoses Confusion R41.0 Atrial fibrillation, permanent I48.21 CKD (chronic kidney disease) stage 3, GFR 30-59 ml/min N18.30 Chronic systolic CHF (congestive heart failure) I50.22 Hypothyroidism E03.9 Coronary artery disease of [place] artery of [place] heart with stable angina pectoris I25.118 Associated angina: with stable angina Coronary Disease-Associated Artery/Lesion type: [place] artery [place] vs. transplanted heart: [place] heart Pain of left great toe M79.675 URI (upper respiratory infection) J06.9 Cognitive impairment R41.89 NSVT (nonsustained ventricular tachycardia) I47.29 (6) CAD (coronary artery disease) Associated angina: with stable angina Coronary Disease-Associated Artery/Lesion type: [place] artery [place] vs. transplanted heart: [place] heart Qualified Code(s): I25.118 - Atherosclerotic heart disease of [place] coronary artery with other forms of angina pectoris
[2023-06-11] MEDS: MELATONIN 3 MG TAB PO SCH (21:58)
[2023-06-12 06:26] LABS: Basophils # (auto) 0.06 K/uL (0.00-0.20); Eosinophils # (auto) 0.09 K/uL (0.00-0.50); Eosinophils % (auto) 1.5 %; Hemoglobin 13.1 g/dl (14.0-18.0); Immature Granulocytes # (auto) 0.06 K/uL (0.01-0.20); Lymphocytes # (auto) 1.01 K/uL (1.20-3.40); Lymphocytes % (auto) 16.6 %; Mean Corpuscular Hgb Conc 34.5 g/dL (32.0-36.0); Mean Corpuscular Volume 95.7 fL (80.0-100.0); Mean Platelet Volume 10.3 fL (9.4-12.4); Monocytes % (auto) 9.9 %; Neutrophils # (auto) 4.25 K/uL (1.40-6.50); Platelet Count 197 K/uL (130-400); RDW Coefficient of Variation 13.2 % (11.5-14.5); RDW Standard Deviation 46.7 fL (36.4-46.3); Red Blood Count 3.97 M/uL (4.70-6.10); White Blood Count 6.07 K/ul (4.8-10.8)
[2023-06-12 06:48] LABS: BUN Creatinine Ratio 13.9 (10-20); Calcium 9.2 mg/dl (8.6-10.3); Creatinine Clr Calc Pharmacy 44.4 ml/min; Est GFR (African American) 49.6 ml/min; Est GFR (Non-African American) 42.8 ml/min; Potassium 4.5 mmol/L (3.5-5.1); Uric Acid 9.6 mg/dl (2.6-7.2)
[2023-06-12 07:06] LABS: Folate (Folic Acid),Ser orPlas 11.23 ng/ml (>5.38)
[2023-06-12] MEDS: allopurinoL 100 MG TAB PO ONE (09:50)
[2023-06-12] MEDS: CYANOCOBALAMIN (B-12) 500 MCG TABLET PO SCH (09:51)
--- NOTE | 2023-06-12 19:25 | Hospitalist Progress Note ---
Date of Service June 12, 2023 Assessment & Plan (1) Confusion: Plan: resolved exact etiology uncertain but suspect acute metabolic encephalopathy in the setting of a URI (MRI brain with sinusitis, URI symptoms, etc) extensive w/u including cxr, u/a, dig level, ammonia, etc without source of infection or metabolic abnormality MRI brain without acute CVA - old CVAs seen only EEG w/o seizure focus checked VBG - no hypercarbia checked blood cx's - negative checked COVID/flu/RSV - returned negative; however, I do believe he has a URI given his nasal congestion/cough/sneezing/etc and MRI brain findings of his sinuses certainly a viral process could have caused some alteration but perhaps not to the level his son saw prior to admission with respect to episode in the shower where he was found on the ground - syncope due to a.fib / low BP?? (2) Atrial fibrillation, permanent: Plan: Despite Metoprolol 50mg po BID + digoxin daily his rate control is very poor With minimal activity his HRs climb to the 120s within seconds With walking he is sustained 140-150, with HRs 160-170 seen as well (briefly) Remains on Eliquis During admission in April he had been on toprol xl 150mg BID but his BPs were low and the dose was cut back Ultimately he was cut back to 50mg BID due to hypotension Spoke informally with cardiology -- will increase metoprolol succ to 75mg BID and observe overnight If we cannot regulate his HRs he may need pacer with AV node ablation (3) CKD (chronic kidney disease) stage 3, GFR 30-59 ml/min: Plan: with mild superimposed DREW Peak Cr 2.1 Cr 1.58 baseline 1.6 to 1.9 he is eating/drinking remains on bumex per home dosing BMP am for stability (4) Chronic systolic CHF (congestive heart failure): Plan: compensated cont to hold Entresto and Spironolactone since we are increasing Metoprolol continue Jardiance (5) Hypothyroidism: Plan: Stable. 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 -- s/p prednisone 10mg daily x 2 days improved today will cut to 5mg/day uric acid level improved from prior (10+) but still high and not at goal of <6 will increase allopurinol to 200mg daily (8) URI (upper respiratory infection): Plan: developed such 1-2 days prior to admission COVID/flu/RSV negative if any worsening in symptoms could consider complete BioFire but hold off for now MRI brain with sinus disease and an acute air-fluid level in the maxillary sinus consider short course of PO abx although still likely to be viral and abx would not be helpful plus, he is already improving (9) Cognitive impairment: Plan: baseline memory impairment - likely on basis of vascular disease (prior strokes, etc) (10) NSVT (nonsustained ventricular tachycardia): Plan: 03/2023 echo with EF 30-35% during prior hospital stay in April he did have runs of NSVT asymptomatic then, and asymptomatic again this admission remains on beta leisa cont to monitor he should f/u with his primary sales and service specialist to have discussion about whether he should have ICD given his persistently low EF Plan PT, OT mana completed cleared to return home with his son with whom he lives left voicemail message for his daughter, Yina, this evening 06/11 spoke with his son Gasper this evening and gave extensive update Admission and Anticipated Discharge Date Admission Date: June 11, 2023 Subjective a.fib on tele - rates often 140-150, sometimes as high as 160-170 (brief) I had him walk in the hallway with staff - I watched the monitor the whole time - HR tiburcio to 120 with simply standing and getting out of bed with walking in hallway he was sustained 140-150 with some brief periods of HR of 160+ patient asymptomatic with walking (no cp, no dyspnea, talking to staff during the walk) pt anxious to leave - nearly threatening to "walk home" if we didn't release him his URI symptoms have improved denies cough eating well Review of Systems Review of Systems: gen - no fevers cv - no cp, no orthopnea pulm - no dyspnea or cough musculo - left great toe pain improved Physical Exam Physical Exam: gen - looks good, very talkative, a little argumentative at times neck - no JVD mouth - MMM voice - hoarse voice resolved heart - irregular, s1 s2, no murmur; tachy (low 100s) lungs - CTA b/l abd - soft NT ND BS+ ext - no edema, pulses 2+ b/l musculo - left great toe MTP pain resolved psych - mental status at baseline today Results & Data Results & Data Vital Signs (Past 12 Hours) Vital Signs Temp Pulse Pulse Resp BP BP Pulse Ox 06/12/23 15:05 94 H 06/12/23 14:58 36.5 C 92 H 18 124/85 94 06/12/23 11:10 36.3 C L 75 18 151/63 H 98 06/12/23 08:18 36.0 C L 70 18 104/73 94 06/12/23 08:15 06/12/23 08:15 101 H 114/74 06/12/23 07:45 68 O2 Del Method 06/12/23 15:05 06/12/23 14:58 Room Air 06/12/23 11:10 Room Air 06/12/23 08:18 Room Air 06/12/23 08:15 Room Air 06/12/23 08:15 06/12/23 07:45 Laboratory Results Laboratory Results - last 24 hr 06/12/23 05:51 WBC 6.07 RBC 3.97 L Hgb 13.1 L Hct 38.0 L MCV 95.7 MCH 33.0 MCHC 34.5 RDW Std Deviation 46.7 H RDW Coeff of Sonja 13.2 Plt Count 197 MPV 10.3 Immature Gran % (Auto) 1.0 Neut % (Auto) 70.0 Lymph % (Auto) 16.6 Terrell % (Auto) 9.9 Eos % (Auto) 1.5 Baso % (Auto) 1.0 Neut # (Auto) 4.25 Lymph # (Auto) 1.01 L Terrell # (Auto) 0.60 H Eos # (Auto) 0.09 Baso # (Auto) 0.06 Immature Gran # (Auto) 0.06 Sodium 138 Potassium 4.5 D Chloride 105 Carbon Dioxide 26 Anion Gap 7 BUN 22 Creatinine 1.58 H Est Cr Clr Drug Dosing 44.4 Est GFR ( Amer) 49.6 Est GFR (Non-Af Amer) 42.8 BUN/Creatinine Ratio 13.9 Glucose 107 H Uric Acid 9.6 H Calcium 9.2 Vitamin B12 204 Folate 11.23 PG Care Time/CCT Total # of Minutes Spent Total Time Spent with Patient: Total time spent is greater than 50% in coordination of care (as documented) at patient's floor/unit and/or counseling patient: Coding Level of Care Code 91917 SUB INP/OBS CARE 3/50MIN Diagnoses Confusion R41.0 Atrial fibrillation, permanent I48.21 CKD (chronic kidney disease) stage 3, GFR 30-59 ml/min N18.30 Chronic systolic CHF (congestive heart failure) I50.22 Hypothyroidism E03.9 Coronary artery disease of [place] artery of [place] heart with stable angina pectoris I25.118 Associated angina: with stable angina Coronary Disease-Associated Artery/Lesion type: [place] artery [place] vs. transplanted heart: [place] heart Pain of left great toe M79.675 URI (upper respiratory infection) J06.9 Cognitive impairment R41.89 NSVT (nonsustained ventricular tachycardia) I47.29 (6) CAD (coronary artery disease) Associated angina: with stable angina Coronary Disease-Associated Artery/Lesion type: [place] artery [place] vs. transplanted heart: [place] heart Qualified Code(s): I25.118 - Atherosclerotic heart disease of [place] coronary artery with other forms of angina pectoris
[2023-06-12] MEDS: METOPROLOL SUCC 25MG EXT REL TAB PO SCH (20:25)
[2023-06-13 06:27] LABS: BUN Creatinine Ratio 15.2 (10-20); Calcium 9.2 mg/dl (8.6-10.3); Creatinine Clr Calc Pharmacy 53.1 ml/min; Est GFR (African American) 61.6 ml/min; Est GFR (Non-African American) 53.1 ml/min; Magnesium 2.2 mg/dl (1.7-2.4); Potassium 3.7 mmol/L (3.5-5.1)
[2023-06-13] MEDS: allopurinoL 100 MG TAB PO SCH (09:35)
[2023-06-13] MEDS: predniSONE 5 MG TAB PO SCH (09:35)
[2023-06-13] MEDS: OLANZapine ZYDIS 5 MG ORALLY DIS. TAB PO STA (10:34)
--- NOTE | 2023-06-13 12:28 | Cardiology Consultation ---
Date of Consultation June 13, 2023 Assessment & Plan (1) Atrial fibrillation, permanent: (2) Chronic systolic CHF (congestive heart failure): (3) Ischemic cardiomyopathy: (4) CAD (coronary artery disease): (5) Anticoagulant long-term use: (6) Fall: Plan 1. Atrial fibrillation: Historically this has been paroxysmal but he is now in permanent atrial fibrillation. Rate control has become an issue he has heart rates in the 30s at night therefore not allowing us to increase his beta- blockade, additionally he has heart rates of up to 180 bpm with minimal activity. We probably cannot achieve better heart rate control without implanting a pacemaker to support his lower heart rate and increase his medications to achieve better heart rate with activity, or to consider AV cassie ablation if better heart rate control is needed. Atrial fibrillation with highly irregular heart rate is also detrimental to cardiac performance and may be contributing to his left ventricular dysfunction. 2. Congestive heart failure: He has had a lot of difficulty with congestive heart failure but it the current time appears to be relatively euhydrated. 3. Ischemic cardiomyopathy: He has significant coronary disease and has had intervention in the past but recently his left ventricular function has fallen without a known change in cardiac anatomy or recurrent myocardial infarction. He may have a superimposed nonischemic cardiomyopathy, possibly related to atrial fibrillation with an uncontrolled heart rate. The irregularity itself can contribute to a cardiomyopathy. His QRS duration is normal. He is on near guideline directed medical therapy (he is on a slightly reduced Entresto dose and he is on a reduced beta-leisa dose due to bradycardia). We would be able to increase his beta-leisa if we can make sure he does not become bradycardic. This would require a pacemaker. 4. Coronary disease: He has known coronary artery disease but no evidence of recent myocardial infarction and he does not have symptoms to suggest angina. 5. Anticoagulation: He is currently on Eliquis, he is on the correct dose for his age and weight. If we do anticipate pacemaker implantation we would need to hold his anticoagulation starting today. 6. Fall: He presented this time with a fall and cause for it is not clear. He is possibly related to these variations in heart rate. A detailed discussion was undertaken with the patient and his daughter. At this point the safest approach is probably to support his heart rate with a pacemaker and to increase his AV cassie blocking medications to keep his heart rate within a reasonable range. If medications cannot be used to do this we could consider AV cassie ablation at that point. I would recommend a biventricular pacemaker or a left bundle branch pacemaker at this time, I would not want to put in a single lead apical pacemaker with his severe cardiomyopathy and the possibility that he will pace frequently. He and his daughter are in agreement with this approach. I will tentatively schedule him to have this done on the afternoon of June 15, 2023. His left ventricular ejection fraction is the range where we should consider ICD implantation and I discussed this in detail with them as well. The procedure was the same although in that case we could not do a left bundle pacing location since the ICD lead would need to be in the apex. Is not clear to me whether he would like to have an ICD in place, the procedure is the same so we do not have to decide until Wednesday but that point we need to decide whether to implant an ICD or a pacemaker. History of Present Illness Reason for Consultation: Tachybradycardia syndrome, atrial fibrillation Attending Physician: Lan Barnes MD History of Present Illness This is a 72-year-old male who has a history of ischemic cardiomyopathy including stent placement in the circumflex and LAD vessels in 2015. In 2016 he suffered an anterior wall myocardial infarction and had repeat stenting in the LAD. In October 2021 his left ventricular action fraction was 40 to 45%. He also has a long history of paroxysmal atrial fibrillation identified in December 2017. He was maintained on amiodarone but developed liver function abnormalities in March 2020 and it was therefore discontinued. He has had a lot of difficulty with rate control since and is followed in our heart failure area. He had an echocardiogram April 09, 2023 where his left ventricular Bystolic dimension was enlarged at 6.0 cm and his left ventricular ejection fraction was felt to be 30 to 35% with moderate global hypokinesis as well as worse hypokinesis of the lateral and basal anterior jiménez. More recently he presented to the [facility] emergency room on June 09, 2023 where he had some confusion and urinary incontinence and had a fall in the shower prior to presentation. He was in atrial fibrillation with a rapid heart rate and appeared to be euvolemic and had borderline low blood pressure. His initial troponin was unremarkable and electrocardiogram did not show any ischemic changes. His medications included digoxin 0.125 mg daily and metoprolol succinate 50 mg daily for rate control as well as Eliquis 5 mg twice a day for stroke prevention and Bumex 2 mg daily, Entresto 97/103 mg 1/2 tablet twice a day, Jardiance 10 mg daily and spironolactone 25 mg daily for heart failure. During his hospitalization he has had a lot of difficulty with atrial fibrillation and heart rate control. At rest with a slight increase in beta- blockade his heart rate was in the 30s, reaching 180 bpm with walking. A repeat echocardiogram on June 13, 2023 showed a dilated left ventricle to 5.8 cm with left ventricular ejection fraction felt to be 25 to 30%. An electrocardiogram today demonstrates atrial fibrillation at 64 bpm with a very irregular rate, poor R wave progression but a narrow QRS complex. I evaluated him in his room with his daughter present. He seems quite confused in general and seems to have an element of dementia but he is conversational. Prior to my visiting with him he was quite belligerent but my evaluation he was not. He cannot describe his symptoms very well but does reiterate that he cannot exercise very well and he cannot give me much information about his fall. There is a concern with his wide heart rate range that the fall could have been due to either rapid or slow heart rates. Allergies Allergy/AdvReac Type Severity Reaction Status Date / Time donepezil Allergy Unknown SEE COMMENT Verified 06/04/23 11:32 duloxetine [From Cymbalta] Allergy Unknown SEE COMMENT Verified 06/04/23 11:32 Home Medications Medication Instructions Recorded Confirmed Type nitroglycerin 0.4 mg sublingual 0.4 mg sublingual UD PRN Chest Pain 12/31/17 06/09/23 History tablet (Nitrostat) atorvastatin 80 mg tablet 80 mg PO HS #90 tabs 04/03/22 06/09/23 Rx digoxin 125 mcg (0.125 mg) tablet 125 mcg PO HS #90 tabs 05/03/23 06/09/23 Rx apixaban 5 mg tablet (Eliquis) 5 mg PO BID #0 tabs 05/08/23 06/09/23 Rx ticagrelor 90 mg tablet (Brilinta) 90 mg PO BID #0 tabs 05/08/23 06/09/23 Rx allopurinol 100 mg tablet 100 mg PO QAM 05/28/23 06/09/23 History bumetanide 2 mg tablet 2 mg PO QAM 05/28/23 06/09/23 History sacubitril 97 mg-valsartan 103 mg 0.5 tab PO [facility] 05/28/23 06/09/23 History tablet empagliflozin 10 mg tablet 10 mg PO QA 06/09/23 06/09/23 History (Jardiance) levothyroxine 75 mcg tablet 75 mcg PO .DAILY@0630 06/09/23 06/09/23 History (Synthroid) metoprolol succinate 50 mg 50 mg PO [facility] 06/09/23 06/09/23 History tablet,extended release 24 hr modafinil 100 mg tablet 100 mg PO QA 06/09/23 06/09/23 History spironolactone 25 mg tablet 12.5 mg PO QA 06/09/23 06/09/23 History Patient History Medical History Generalized weakness Edema Wound of left leg Elevated serum creatinine Acute on chronic systolic (congestive) heart failure Pulmonary edema Atrial fibrillation with rapid ventricular response Heart failure with mid-range ejection fraction (HFmEF) Enlarged prostate Kidney disease Facial droop Abnormal LFTs Facial droop due to acute cerebrovascular accident (CVA) Acute cerebrovascular accident (CVA) CHF exacerbation Hypoxia Pulmonary edema Acute kidney injury Altered mental state Acute CVA (cerebrovascular accident) Transaminitis Exposure to COVID-19 virus Bronchitis Memory loss due to CVA Myocardial Infarction 2015-[facility]- CATH- STENT- FOLLOWS WITH DR. BAKER Osteoarthritis Degenerative disc disease Tinnitus Sleep apnea NO CPAP Aneurysm BRAIN 2007- [facility] /UNSURE OF SIZE- FOLLOWS DR. BAKER Lumbar radiculopathy Acute respiratory failure with hypoxia Elevated TSH Chronic systolic heart failure H/O arterial ischemic stroke residual cognitive impairment. APR 25 2008/ [facility] /PLACED ON BLOOD THINNER Atrial flutter with rapid ventricular response Nasal septal deviation Hypertension Surgical History H/O neck surgery History of left cataract surgery Aspiration into airway PER PATIENT, THIS HAPPENED AFTER E.T TUBE CAME OUT IN RECOVERY, THINKS IT WAS 2005, DOES NOT REMEMBER WHAT PROCEDURE BUT THINKS IT WAS AT [facility]- POOR HISTORIAN (HX STROKE) History of colonoscopy Hx of umbilical hernia repair History of deviated nasal septum WITH REPAIR History of cardioversion [facility] 2018 S/P cardiac catheterization ONE @ [facility]/ ONE @ [facility] - 2016 & 2017- [facility]- FROM [place] H/O hernia repair Family History Mother Diabetes Depression Unknown No problems noted. Father Myocardial infarction Grandfather (Paternal) Myocardial infarction Brother Myocardial infarction Sister Depression Other No family history of adverse response to anesthesia No family history of bleeding disorder Denies family history of Colon cancer Ovarian cancer Prostate cancer Breast cancer Social History Smoking Status: Former smoker Age Started Using Tobacco: 22; Age Quit Using Tobacco: 37; Cigarettes Per Day: 30 YEARS AGO; Second Hand Exposure: No; Do You Dip or Chew Tobacco: No; Hx Alcohol Use: Yes Alcohol type: hard liquor Alcohol Intake Frequency: 2-3 x/Week Hx Substance Use: Yes Last Used Substance: Unknown Preferred Language: Bulgarian Communication Ability: Effective Visual Impairment: No Limitations Hearing Ability: Normal Slip Operator Required: No Beliefs That Will Affect Care: None marital status: Current Living Situation: Family Current Living Situation Comment: Lives with his son. current occupational status: retired and disabled How many Children do You have: 1 Other Information That Helps Us Care for You: No Feels Safe at Home: Yes Safety Concerns: Feels Safe At This Time Childhood Exposure to Second-Hand Smoke: Yes Dental Care, Regularly: Yes Physical Activity Frequency: Daily Seatbelt Use: always Sunscreen Use: No Assistive Devices: Walker Review of Systems Review of Systems: Constitutional: Alert, cooperative and in no distress. Somewhat confused but or iented to person and place. HEENT: Unremarkable Neck: No jugular venous distention, carotid pulses are irregular but otherwise normal and equal bilaterally without bruits. Pulmonary: Clear to auscultation bilaterally. Cardiac: Irregular rhythm with a soft holosystolic murmur at the apex, no gallop or rub. Abdomen: Soft, nontender with normal bowel sounds. Extremities: No edema. Neurologic: No focal findings. Skin: No rash, ecchymoses or petechiae. Results & Data Vital Signs (Past 12 Hours) Vital Signs Temp Pulse Pulse Pulse Resp BP Pulse Ox 06/13/23 08:00 36.3 C L 48 L 16 104/67 97 06/13/23 07:48 71 06/13/23 01:48 76 100/64 O2 Del Method 06/13/23 08:00 Room Air 06/13/23 07:48 06/13/23 01:48 Laboratory Results Comprehensive Metabolic Panel 06/13/23 Range/Units 05:39 Sodium 139 (136-145) mmol/L Potassium 3.7 (3.5-5.1) mmol/L Chloride 106 (98-107) mmol/L Carbon Dioxide 25 (21-32) mmol/L BUN 20 (6-23) mg/dl Creatinine 1.32 (0.6-1.4) mg/dl Glucose 102 H (70-99(Fasting)) mg/dl Calcium 9.2 (8.6-10.3) mg/dl Intake and Output 06/12/23 06/13/23 06/13/23 22:59 06:59 14:59 Intake Total 200 / 620 300 / 620 Balance 200 / 420 300 / 420 Intake: Oral 200 / 620 300 / 620 Other: # Unmeasured Voids 2 2 Weight 95.254 kg Weight Measurement Method Built in [facility] Diagnostic Findings Telemetry: Atrial fibrillation, highly variable heart rate with 30s overnight and up to 180 with walking. PG Care Time/CCT Total # of Minutes Spent Total Time Spent with Patient: Total time spent is greater than 50% in coordination of care (as documented) at patient's floor/unit and/or counseling patient: Coding Level of Care Code 94174 INT INP/OBS CARE 3/75MIN Diagnoses Atrial fibrillation, permanent I48.21 Chronic systolic CHF (congestive heart failure) I50.22 Ischemic cardiomyopathy I25.5 Coronary artery disease of [place] artery of [place] heart with stable angina pectoris I25.118 Coronary Disease-Associated Artery/Lesion type: [place] artery [place] vs. transplanted heart: [place] heart Associated angina: with stable angina Anticoagulant long-term use Z79.01 Fall, subsequent encounter W19.XXXD Encounter type: subsequent encounter (4) CAD (coronary artery disease) Coronary Disease-Associated Artery/Lesion type: [place] artery [place] vs. transplanted heart: [place] heart Associated angina: with stable angina Qualified Code(s): I25.118 - Atherosclerotic heart disease of [place] coronary artery with other forms of angina pectoris (6) Fall Encounter type: subsequent encounter Qualified Code(s): W19.XXXD - Unspecified fall, subsequent encounter
--- NOTE | 2023-06-13 16:55 | XCELERA ---
[id number] \\[email or web address]\[id number]
--- NOTE | 2023-06-13 17:09 | Hospitalist Progress Note ---
Date of Service June 13, 2023 Assessment & Plan (1) Tachy-karey syndrome: Plan: patient with poorly controlled a.fib during this stay, as well as his stay in 04/17-05/19, he has had rapid a.fib necessitating multiple dose adjustments of beta leisa over the last 48 hours he has had significantly elevated HRs with minimal activity, and has hit 160-170 periodically with just moving around attempts to increase his metoprolol succ to 75mg last night led to bradycardia overnight with HRs in the 30s in light of the above he would benefit from pacemaker placement +/- AV node ablation to that end I consulted Dr Alan Rowan from [facility] he met with Mr Delgado and his daughter Yina patient apparently is agreeable to the pacemaker; daughter and son supportive of such hold meto succ, order meto tartrate and use prn hold Eliquis in preparation for pacemaker placement Dr Rowan also considering adding ICD component given his depressed EF of 30- 35% (2) Confusion: Plan: present upon admission exact etiology uncertain but suspect acute metabolic encephalopathy in the setting of a URI (MRI brain with sinusitis, URI symptoms, etc) extensive w/u including cxr, u/a, dig level, ammonia, etc without source of infection or metabolic abnormality MRI brain without acute CVA - old CVAs seen only EEG w/o seizure focus checked VBG - no hypercarbia checked blood cx's - negative checked COVID/flu/RSV - returned negative; however, I do believe he has a URI given his nasal congestion/cough/sneezing/etc and MRI brain findings of his sinuses certainly a viral process could have caused some alteration but perhaps not to the level his son saw prior to admission this confusion/encephalopathy is in the setting of a baseline cognitive impairment state/early dementia he has very poor insight into his medical problems at one point he was going to leave [facility] and walk home to [place] in his slippers I am concerned that he lacks capacity to make informed medical decisions (3) Atrial fibrillation, permanent: Plan: Despite Metoprolol 50mg po BID + digoxin daily his rate control was very poor since admission During his admission in April he had been on toprol xl 150mg BID but his BPs were low and the dose was cut back Ultimately he was cut back to 50mg BID due to hypotension In response to the elevated HRs his meto succ last pm was increased to 75mg BID this led to significant bradycardia see #1 above (4) CKD (chronic kidney disease) stage 3, GFR 30-59 ml/min: Plan: with mild superimposed DREW Peak Cr 2.1 Cr today 1.3 baseline 1.6 to 1.9 BMP am for stability likely resume bumex in am (5) Chronic systolic CHF (congestive heart failure): Plan: remains compensated echo this admission with EF 30-35% see above re: discussion about metoprolol Entresto, bumex, and Spironolactone have been on hold Will plan to resume bumex tomorrow continue Jardiance (6) Hypothyroidism: Plan: Stable. 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 -- s/p prednisone 10mg daily x 2 days cut to 5mg/day starting today uric acid level improved from prior level (10+) but still high and not at goal of <6 increased allopurinol to 200mg daily for prophylaxis (9) URI (upper respiratory infection): Plan: developed such 1-2 days prior to admission COVID/flu/RSV negative if any worsening in symptoms could consider complete BioFire but hold off for now MRI brain with sinus disease and an acute air-fluid level in the maxillary sinus consider short course of PO abx although still likely to be viral and abx would not be helpful plus, he is already improving (10) Cognitive impairment: Plan: baseline memory impairment - likely on basis of vascular disease (prior strokes, etc) (11) NSVT (nonsustained ventricular tachycardia): Plan: 03/2023 echo with EF 30-35% during prior hospital stay in April he did have runs of NSVT asymptomatic then, and asymptomatic again this admission there is discussion about making his pacer a dual ICD/pacer device (12) Encounter for assessment of decision-making capacity: Plan: The patient has developed a cognitive impairment state/early dementia over the last few years, likely on the basis of vascular disease (multiple old strokes). He was quite agitated today, and it took significant discussion with him along with low-dose zyprexa to help him be calm. I am concerned that he lacks medical decision making capacity. His insight into his medical problems is very poor. He understands that he has heart disease on a rudimentary basis but the complex talk of the rapid a.fib, needing pacemaker, etc seemed overwhelming for him and difficult to understand. Luckily his daughter was here to provide support. After he found out that there was no bus service from [facility] he alluded to walking home to [place]. When asked how he would get his prescriptions he said "I'll go to the pharmacy" and that "I live a 1/2 mile away from it [pharmacy] - I'll walk." The zyprexa did improve his agitation considerably. Plan PT, OT mana logan cleared to return home with his son with whom he lives will order zyprexa 2.5mg HS to use on PRN basis for agitation EXTENSIVE discussion held with pt and his daughter today regarding the uncontrolled a.fib multiple bedside visits because of agitation multiple discussions held with Dr Rowan, cardiology complex care coordination total time today 90 minutes Admission and Anticipated Discharge Date Admission Date: June 11, 2023 Subjective tele overnight - rates in the 30s this was after increasing his metoprolol succ to 75mg BID in response to elevated HRs in the 140-170 range with activity was sleeping when the HRs hit the 30s was called by staff early this am that patient was agitated, demanding to be released he had taken off his monitor leads and was attempting to leave the room nursing sent me an urgent [place] message regarding the above I asked for security to be called as the patient is often confused and seems to lack capacity when I arrived multiple security officers were present Mr Delgado was sitting at the side of the bed I asked why he wanted to leave and he said "I just have to get out of here" I asked how he would get home and he said "I'll take a bus" a security clerk then said that JORGE no longer comes to [facility] Mr Delgado then said he would "find a way home" I offered to compromise with him and stated I would ask his daughter and/or son to come to the hospital to share in the conversation when I left the room I asked the nursing staff to give zyprexa 2.5mg po x 1; he did take this according to staff I left messages for his son & daughter His daughter Yina called back into the hospital and we finally connected She reported she would come as soon as possible Yina indeed came to the bedside a short time later we had lengthy discussion with Mr Delgado about the problems he is having (a.fib with RVR despite dig/metoprolol, then bradycardia overnight after we increased his metoprolol) I shared my concern that perhaps his incident in the shower at home was rapid a.fib with hypotension which then led to a fall/syncope discussed that during his admission in April we made multiple med changes for his a.fib and, given this admission's issues, we need to take additional action recommended that he speak with Dr Rowan from cardiology about potential pacemaker placement; he may even need ICD due to EF 30-35% by this point Mr Delgado was more calm given the recent zyprexa use Review of Systems Review of Systems: CV - no chest pain pulm - no dyspnea HENT - URI symptoms much improved Physical Exam Physical Exam: gen - agitated, but directable during the visit; poor insight into his medical problems neck - no JVD mouth - MMM heart - irregular, s1 s2, no murmur; tachy lungs - CTA b/l abd - soft NT ND BS+ ext - no edema, pulses 2+ b/l psych - awake, alert, poor insight, oriented to person/place, agitated Results & Data Results & Data Vital Signs (Past 12 Hours) Vital Signs Temp Pulse Pulse Pulse Resp BP Pulse Ox 06/13/23 16:30 36.2 C L 64 16 130/79 96 06/13/23 15:51 85 06/13/23 14:00 36.4 C L 68 18 129/88 96 06/13/23 09:40 06/13/23 08:00 36.3 C L 48 L 16 104/67 97 06/13/23 07:48 71 O2 Del Method 06/13/23 16:30 Room Air 06/13/23 15:51 06/13/23 14:00 Room Air 02/18/24 09:40 Room Air 06/13/23 08:00 Room Air 06/13/23 07:48 Laboratory Results Laboratory Results - last 24 hr 06/13/23 05:39 Sodium 139 Potassium 3.7 Chloride 106 Carbon Dioxide 25 Anion Gap 8 BUN 20 Creatinine 1.32 Est Cr Clr Drug Dosing 53.1 Est GFR ( Amer) 61.6 Est GFR (Non-Af Amer) 53.1 BUN/Creatinine Ratio 15.2 Glucose 102 H Calcium 9.2 Magnesium 2.2 Digoxin 0.7 L PG Care Time/CCT Total # of Minutes Spent Total Time Spent with Patient: Total time spent is greater than 50% in coordination of care (as documented) at patient's floor/unit and/or counseling patient: Prolonged Care Time Prolonged Care Time: Yes Total Prolonged Care Time: 90 Coding Level of Care Code 57275 SUB INP/OBS CARE 3/50MIN (25 - SIGNIFICANT, SEPARATELY IDENTIFIABLE ) Diagnoses Tachy-karey syndrome I49.5 Confusion R41.0 Atrial fibrillation, permanent I48.21 CKD (chronic kidney disease) stage 3, GFR 30-59 ml/min N18.30 Chronic systolic CHF (congestive heart failure) I50.22 Hypothyroidism E03.9 Coronary artery disease of [place] artery of [place] heart with stable angina pectoris I25.118 Associated angina: with stable angina Coronary Disease-Associated Artery/Lesion type: [place] artery [place] vs. transplanted heart: [place] heart Pain of left great toe M79.675 URI (upper respiratory infection) J06.9 Cognitive impairment R41.89 NSVT (nonsustained ventricular tachycardia) I47.29 Encounter for assessment of decision-making capacity Z00.8 Additional Codes Prolonged Care Time - Prolonged Care Time: Yes ([id number]) (7) CAD (coronary artery disease) Associated angina: with stable angina Coronary Disease-Associated Artery/Lesion type: [place] artery [place] vs. transplanted heart: [place] heart Qualified Code(s): I25.118 - Atherosclerotic heart disease of [place] coronary artery with other forms of angina pectoris
[2023-06-13] MEDS ORDERED: METOPROLOL TARTRATE 25 MG TAB PO PRN (19:14)
[2023-06-13] MEDS ORDERED: OLANZapine ZYDIS 5 MG ORALLY DIS. TAB PO PRN (19:15)
[2023-06-13] MEDS: OLANZapine 10 MG/2.1 ML SDV IM STA (19:41)
--- NOTE | 2023-06-14 06:40 | Electrocardiogram Report ---
Test Reason : Blood Pressure : / mmHG Vent. Rate : 064 BPM Atrial Rate : 056 BPM P-R Int : 000 ms QRS Dur : 074 ms QT Int : 470 ms P-R-T Axes : 000 -24 131 degrees QTc Int : 484 ms Poor data quality, interpretation may be adversely affected Atrial fibrillation Low voltage QRS Cannot rule out Anterior infarct (cited on or before 09-JUN-2023) Abnormal ECG When compared with ECG of 09-JUN-2023 21:47, Vent. rate has decreased BY 47 BPM Confirmed by Alan Rowan ([id number]) on 06/14/2023 6:40:00 AM Referred By: REFERRED SELF Confirmed By:Alan Rowan
[2023-06-14] MEDS: BUMETANIDE 1 MG TAB PO SCH (09:01)
--- NOTE | 2023-06-14 17:13 | Cardiology Progress Note ---
Date of Service June 14, 2023 Assessment & Plan (1) Atrial fibrillation, permanent: (2) Chronic systolic CHF (congestive heart failure): (3) Ischemic cardiomyopathy: (4) CAD (coronary artery disease): (5) Anticoagulant long-term use: (6) Fall: Plan 1. Atrial fibrillation: Historically this has been paroxysmal but he is now in permanent atrial fibrillation. Rate control has become an issue, on beta- blockade he has heart rates in the 30s at night therefore not allowing us to increase his beta-blockade, additionally he has heart rates of up to 200 bpm with minimal activity. We cannot achieve better heart rate control without implanting a pacemaker to support his lower heart rate and increase his medications to achieve better heart rate with activity, or to consider AV cassie ablation if better heart rate control is needed. Atrial fibrillation with highly irregular heart rate is also detrimental to cardiac performance and may be contributing to his left ventricular dysfunction. 2. Congestive heart failure: He has had a lot of difficulty with congestive heart failure but it the current time appears to be relatively euhydrated. 3. Ischemic cardiomyopathy: He has significant coronary disease and has had intervention in the past but recently his left ventricular function has fallen without a known change in cardiac anatomy or recurrent myocardial infarction. He may have a superimposed nonischemic cardiomyopathy, possibly related to atrial fibrillation with an uncontrolled heart rate. The irregularity itself can contribute to a cardiomyopathy. His QRS duration is normal. He is on near guideline directed medical therapy (he is on a slightly reduced Entresto dose and he is on a reduced beta-leisa dose due to bradycardia). We would be able to increase his beta-leisa if we can make sure he does not become bradycardic. This would require pacing. He also meets criteria for a defibrillator, he has an ischemic cardiomyopathy with an ejection fraction of around 30%. I discussed this with him and his daughter and both feel that he would like to be resuscitated in the event of a cardiac arrest. I would therefore plan on biventricular ICD implantation. A biventricular device will be used due to the likelihood of frequent pacing with dyssynchrony if we do not implant a biventricular unit. 4. Coronary disease: He has known coronary artery disease but no evidence of recent myocardial infarction and he does not have symptoms to suggest angina. 5. Anticoagulation: He is currently on Eliquis, he has been on the correct dose for his age and weight. I held his anticoagulation starting last evening which will give him 48 hours off of the medication. 6. Fall: He presented this time with a fall and cause for it is not clear. He is possibly related to these variations in heart rate. A detailed discussion was undertaken with the patient and his daughter, both yesterday and reviewed today. At this point the safest approach is probably to support his heart rate with a pacemaker and to increase his AV cassie blocking medications to keep his heart rate within a reasonable range. If medications cannot be used to do this we could consider AV cassie ablation at that point. I would recommend a biventricular pacing, I would not want to put in a single lead apical device with his severe cardiomyopathy and the possibility that he will pace frequently. He and his daughter are in agreement with this approach. He is scheduled for 8 AM on June 15, 2023. His left ventricular ejection fraction is the range where we should consider ICD implantation and I discussed this in detail with them as well. He feels we should implanted defibrillator to protect him from sudden and since he meets criteria I will plan to do that. His daughter is in agreement. I did obtain consent for ICD implantation. I discussed the indications, procedure, risks and alternatives with him and his daughter. They understand and all questions were answered. Admission and Anticipated Discharge Date Admission Date: June 11, 2023 Subjective He is feeling well today and appears to be in good spirits. His daughter is in the room with him. He has no sensation of palpitations and no cardiovascular complaints. Physical Exam Physical Exam: Constitutional: Alert, cooperative and in no distress. Somewhat confused but oriented to person and place. HEENT: Unremarkable Neck: No jugular venous distention, carotid pulses are irregular but otherwise normal and equal bilaterally without bruits. Pulmonary: Clear to auscultation bilaterally. Cardiac: Irregular rhythm with a soft holosystolic murmur at the apex, no gallop or rub. Abdomen: Soft, nontender with normal bowel sounds. Extremities: No edema. Neurologic: No focal findings. Skin: No rash, ecchymoses or petechiae. Results & Data Vital Signs (Past 12 Hours) Vital Signs Temp Pulse Resp BP Pulse Ox O2 Del Method 06/14/23 15:46 36.4 C L 83 16 111/73 98 Room Air 06/14/23 11:11 106 H 16 112/81 94 Room Air 06/14/23 07:38 36.5 C 82 16 151/86 H 95 Room Air Laboratory Results Intake and Output 06/14/23 06/14/23 06/14/23 06:59 14:59 22:59 Intake Total 400 / 1845 480 / 480 Balance 400 / 1845 480 / 480 Intake: Oral 400 / 1845 480 / 480 Other: Weight 94.3 kg Weight Measurement Method Built in [facility] Diagnostic Findings Telemetry: Continued rapid heart rate, very fast during the day (up to 200 bpm at times), 80s to 90s at night. PG Care Time/CCT Total # of Minutes Spent Total Time Spent with Patient: Total time spent is greater than 50% in coordination of care (as documented) at patient's floor/unit and/or counseling patient: Coding Level of Care Code 13888 SUB INP/OBS CARE 3/50MIN Diagnoses Atrial fibrillation, permanent I48.21 Chronic systolic CHF (congestive heart failure) I50.22 Ischemic cardiomyopathy I25.5 Coronary artery disease of [place] artery of [place] heart with stable angina pectoris I25.118 Coronary Disease-Associated Artery/Lesion type: [place] artery [place] vs. transplanted heart: [place] heart Associated angina: with stable angina Anticoagulant long-term use Z79.01 Fall, subsequent encounter W19.XXXD Encounter type: subsequent encounter (4) CAD (coronary artery disease) Coronary Disease-Associated Artery/Lesion type: [place] artery [place] vs. transplanted heart: [place] heart Associated angina: with stable angina Qualified Code(s): I25.118 - Atherosclerotic heart disease of [place] coronary artery with other forms of angina pectoris (6) Fall Encounter type: subsequent encounter Qualified Code(s): W19.XXXD - Unsp ecified fall, subsequent encounter
[2023-06-14] MEDS: METOPROLOL TARTRATE 50 MG TAB PO PRN (18:26)
--- NOTE | 2023-06-14 20:13 | Hospitalist Progress Note ---
Date of Service June 14, 2023 Assessment & Plan (1) Tachy-karey syndrome: Plan: patient with poorly controlled a.fib during this stay, as well as his stay in 04/17-05/19, he has had rapid a.fib necessitating multiple dose adjustments of beta leisa over the last few days he has had significantly elevated HRs with minimal activity, and has hit 160-170 periodically with just moving around in his room attempts to increase his metoprolol succ to 75mg led to severe bradycardia with HRs in the 30s in light of the above he would benefit from pacemaker placement to that end Dr Alan Rowan from [facility] [place] was consulted Dr Rowan is planing BiV pacemaker with ICD insertion TOMORROW at 8am NPO after MN tonight for such cont to hold meto succ cont meto tartrate 50mg prn for sustained HRs >100 cont to hold Eliquis in preparation for pacemaker placement appreciate Dr Rowan's assistance (2) Confusion: Plan: present upon admission MUCH improved exact etiology uncertain but suspect acute metabolic encephalopathy in the setting of a URI (MRI brain with sinusitis, URI symptoms, etc) of note - the fall/?syncopal episode in his shower at home may have been due to rapid a.fib with hypotension leading to the event he may have also been mildly volume contracted given his DREW extensive w/u including cxr, u/a, dig level, ammonia, etc without source of infection or metabolic abnormality MRI brain without acute CVA - old CVAs seen only EEG w/o seizure focus checked VBG - no hypercarbia checked blood cx's - negative checked COVID/flu/RSV - returned negative; however, I do believe he had a URI given his nasal congestion/cough/sneezing/etc and MRI brain findings of his sinuses his confusion/encephalopathy was in the setting of a baseline cognitive impairment state/early dementia (3) Atrial fibrillation, permanent: Plan: Despite Metoprolol BID + digoxin daily his rate control has been very poor since admission During his admission in April he had been on toprol xl 150mg BID but his BPs were low and the dose was cut back Ultimately he was cut back to 50mg BID due to hypotension In response to the elevated HRs this admission his meto succ last was increased to 75mg BID but this led to severe bradycardia see #1 above (4) CKD (chronic kidney disease) stage 3, GFR 30-59 ml/min: Plan: with mild superimposed DREW resolved Peak Cr 2.1 baseline 1.6 to 1.9 Cr yesterday 1.3 BMP am for stability (5) Chronic systolic CHF (congestive heart failure): Plan: remains compensated echo this admission with EF 30-35% see above re: discussion about metoprolol Entresto, bumex, and Spironolactone have been on hold but resumed bumex today to maintain euvolemic status continue Jardiance BMP am - consider resuming Entresto later in the stay (6) Hypothyroidism: Plan: Stable. TSH=1.851 Continue Synthroid 75 mcg po daily (7) CAD (coronary artery disease): Plan: No evidence of ACS despite his event in the shower at home (see above) Troponin within normal limits Continue Ticagrelor 90mg po BID Lipitor on hold due to rhabdomyolysis he had had in April and concern it was statin related HOWEVER, his HMG-coA reductase inhibitor ab returned negative which makes statin-induced rhabdo very unlikely Consider rechallenge with a statin while here Metoprolol on hold due to significant bradycardia - see #1 above (8) Pain of left great toe: Plan: during prior hospitalization he had podagra from gout due to falling in shower at his son's home checked x-rays --> no fracture 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 -- s/p prednisone 10mg daily x 2 days now cut to 5mg/day pain MUCH improved uric acid level improved from prior level (10+) but still high and not at goal of <6 increased allopurinol to 200mg daily for prophylaxis during this stay he was supposed to f/u with rheumatology this week but will need visit rescheduled (was to see Dr Dallas Llanes [facility] [place]um) (9) URI (upper respiratory infection): Plan: developed such 1-2 days prior to admission COVID/flu/RSV negative MRI brain with sinus disease and an acute air-fluid level in the maxillary sinus consider short course of PO abx although still likely to be viral and abx would not be helpful plus, he is already improving / resolving the illness (10) Cognitive impairment: Plan: baseline memory impairment - likely on basis of vascular disease (prior strokes, etc) had superimposed encephalopathy at admission (11) NSVT (nonsustained ventricular tachycardia): Plan: 03/2023 echo with EF 30-35% during prior hospital stay in April he did have runs of NSVT asymptomatic then, and asymptomatic again this admission there is discussion about making his pacer a dual ICD/pacer device this is indeed the plan for tomorrow 06/15 (12) Encounter for assessment of decision-making capacity: Plan: The patient has developed a cognitive impairment state/early dementia over the last few years, likely on the basis of vascular disease (multiple old strokes). Wednesday am, 06/13, he was quite agitated, and it took significant discussion with him along with low-dose zyprexa to help him be calm. I am concerned that he lacks consistent medical decision making capacity. His insight into his medical problems is often very poor. Of note - post-discharge he will cont to live with his son who will provide 16/11 supervision. Plan PT, ANTONINA adair completed cleared to return home with his son with whom he lives zyprexa 2.5mg HS to use on PRN basis for agitation (did not need overnight) updated pt's daughter, Yina, by phone this evening Admission and Anticipated Discharge Date Admission Date: June 11, 2023 Subjective no issues overnight after yesterday's episode of agitation and confusion he has been more calm and easy to work with tele - a.fib, rates >100, with rates hitting 150-170 OFF beta leisa during my visit he denied all complaints pacemaker insertion scheduled for tomorrow Review of Systems Review of Systems: gen - eating well; no fevers HENT - denies any nasal congestion/URI symptoms - resolved cv - no cp, no orthopnea pulm - no VILLALTA Physical Exam Physical Exam: gen - awake, alert, calm, joking/laughing today neck - no JVD mouth - MMM heart - irregular, s1 s2, no murmur; tachycardic lungs - CTA b/l abd - soft NT ND BS+ ext - no edema, pulses 2+ b/l psych - awake, alert, no agitation today Results & Data Results & Data Vital Signs (Past 12 Hours) Vital Signs Temp Pulse Pulse Pulse Resp BP BP 06/14/23 20:10 106 H 06/14/23 19:58 36.5 C 96 H 18 142/84 H 06/14/23 15:46 36.4 C L 83 16 111/73 06/14/23 11:11 106 H 16 112/81 Pulse Ox O2 Del Method 06/14/23 20:10 06/14/23 19:58 97 Room Air 06/14/23 15:46 98 Room Air 06/14/23 11:11 94 Room Air PG Care Time/CCT Total # of Minutes Spent Total Time Spent with Patient: Total time spent is greater than 50% in coordination of care (as documented) at patient's floor/unit and/or counseling patient: Coding Level of Care Code 12258 SUB INP/OBS CARE 2/35MIN Diagnoses Tachy-karey syndrome I49.5 Confusion R41.0 Atrial fibrillation, permanent I48.21 CKD (chronic kidney disease) stage 3, GFR 30-59 ml/min N18.30 Chronic systolic CHF (congestive heart failure) I50.22 Hypothyroidism E03.9 Coronary artery disease of [place] artery of [place] heart with stable angina pectoris I25.118 Associated angina: with stable angina Coronary Disease-Associated Artery/Lesion type: [place] artery [place] vs. transplanted heart: [place] heart Pain of left great toe M79.675 URI (upper respiratory infection) J06.9 Cognitive impairment R41.89 NSVT (nonsustained ventricular tachycardia) I47.29 Encounter for assessment of decision-making capacity Z00.8 (7) CAD (coronary artery disease) Associated angina: with stable angina Coronary Disease-Associated Artery/Lesion type: [place] artery [place] vs. transplanted heart: [place] heart Qualified Code(s): I25.118 - Atherosclerotic heart disease of [place] coronary artery with other forms of angina pectoris
[2023-06-15 07:35] LABS: BUN Creatinine Ratio 14.5 (10-20); Calcium 9.1 mg/dl (8.6-10.3); Creatinine Clr Calc Pharmacy 36.7 ml/min; Est GFR (African American) 38.9 ml/min; Est GFR (Non-African American) 33.6 ml/min; Potassium 3.5 mmol/L (3.5-5.1)
--- NOTE | 2023-06-15 08:09 | Pre Anesthesia Assessment ---
Date of Service June 15, 2023 Pre Sedation Assessment Vital Signs Temp Pulse Pulse Pulse Resp BP BP 06/15/23 07:51 36.8 C 77 18 132/99 06/15/23 07:40 83 20 139/80 06/15/23 07:27 61 06/15/23 04:14 36.3 C L 61 18 114/75 06/14/23 23:12 36.3 C L 61 18 121/75 06/14/23 20:10 106 H 06/14/23 19:58 36.5 C 96 H 18 142/84 H 06/14/23 15:46 36.4 C L 83 16 111/73 06/14/23 11:11 106 H 16 112/81 Pulse Ox O2 Del Method 06/15/23 07:51 97 Room Air 06/15/23 07:40 97 Room Air 06/15/23 07:27 06/15/23 04:14 94 Room Air 06/14/23 23:12 94 Room Air 06/14/23 20:10 06/14/23 19:58 97 Room Air 06/14/23 15:46 98 Room Air 06/14/23 11:11 94 Room Air Cardiovascular + tachycardic and + irregularly irregular Respiratory normal respiratory effort, lungs clear to auscultation Pre-Sedation Airway Assessment Smoking Status: Former smoker Hx Sleep Apnea: Yes Short, Thick Neck: No Thyromental Distance: > or= 3.5 Finger Breadths Oral Cavity: + Dental Abnormalities Mallampati Class: II ASA: ASA4 NPO Status Date of Last Intake of Fluids: 06/14/23 Time of Last Intake of Fluids: 20:00 Date of Last Intake of Solid Food: 06/14/23 Time of Last Intake of Solid Foods: 20:00 Procedure Planning Current Medications Reviewed: Yes Notes The planned sedation has been discussed with the patient. Informed Consent was obtained. I have identified the patient, determined the appropriateness of sedation and have assessed the patient immediately prior to the procedure. All medicine(s) and interventions are by my order.
[2023-06-15] MEDS: ceFAZolin 330 MG/ML 1 GM VIAL ONE (10:22)
[2023-06-15] MEDS: ceFAZolin 330 MG/ML 1 GM VIAL IV SCH (10:22)
[2023-06-15] MEDS: WATER, STERILE FOR INJ 10 ML VIAL ONE (10:22)
[2023-06-15] MEDS: VANCOMYCIN HCL 1000MG/20ML VIAL ONE (10:22)
[2023-06-15] MEDS: LIDOCAINE 1% LOCAL 20 ML VIAL ONE (10:22)
[2023-06-15] MEDS: BACITRACIN OINT 14 GM TUBE ONE (10:23)
[2023-06-15] MEDS: MIDAZOLAM HCL 5 MG/ML 1 ML VIAL ONE (10:23)
[2023-06-15] MEDS: fentaNYL citrate PF 100 MCG/2 ML VIAL ONE (10:23)
--- NOTE | 2023-06-15 10:43 | Electrophysiology Report ---
Date of Service June 15, 2023 Electrophysiology Procedure Electrophysiology Procedure Report Preoperative diagnosis: Pacing requirement, cardiomyopathy, congestive heart failure Postoperative diagnosis: Same Procedure: Atrial and ventricular defibrillator lead implantation Coronary sinus angiography Left ventricular lead implantation Biventricular ICD implantation Surgeon: Alan Rowan MD Estimated blood loss: 50 cc Complications: None Disposition: Cardiology recovery Patient has an ischemic cardiomyopathy with a possible nonischemic component and ejection fraction of less than 35%, we need to control his rate as it is excessive and he has periods of bradycardia requiring pacing when his rate is controlled. Although his [place] QRS is narrow he will be pacing with some frequency, possibly all the time if we need to perform AV cassie ablation to control the rate. He therefore should have biventricular pacing, since he also meets criteria for ICD implantation for primary prevention of sudden cardiac we will implant a biventricular ICD. He may have permanent atrial fibrillation however he has been paroxysmal in the past and we may want to try to control his rhythm once we have the pacemaker in place, therefore I will place an atrial lead, a biventricular device always has atrial ports in any case. Procedure details: After obtaining informed consent for the procedure, the patient was brought to the laboratory and prepped and draped in the standard sterile manner. The left prepectoral region was anesthetized with 1% lidocaine local anesthetic and left axillary venipuncture was performed by percutaneous technique and a guidewire placed through the left subclavian vein into the superior vena cava. The area was further infiltrated with 1% lidocaine local anesthetic and a 5 cm incision was made parallel to the left clavicle and 2 cm below it and carried down to the anterior pectoralis fascia. An ICD pocket was formed by blunt dissection anterior to the pectoralis fascia and a vancomycin- soaked sponge was placed in the pocket. A 10.5 [place] Medtronic lead introducer was placed over the guidewire into the left subclavian vein, the dilator and guidewire were removed and a bipolar active fixation steroid tipped ventricular ICD lead was advanced through the introducer into the superior vena cava. A guidewire was placed through the introducer and the introducer was stripped from the lead and guidewire. An 8.5 [place] Medtronic lead introducer was placed over the guidewire into the left subclavian vein, the dilator and guidewire were removed and a bipolar active fixation steroid tipped atrial lead was advanced through the introducer into the superior vena cava. A guidewire was placed back through the introducer and the introducer was stripped from the lead and guidewire. Using a curved stylette the ventricular lead was advanced through the right ventricular outflow tract into the pulmonary artery and then using a straight stylette was positioned in the right ventricular apex. The screw was extended fixing the lead in position. Pacing and sensing thresholds were evaluated in bipolar configuration and are recorded on the implant data sheet. Diaphragmatic pacing was evaluated at full bipolar output as indicated on the data sheet. Using a curved stylette the atrial lead was positioned in the region of the atrial appendage and the screw extended fixing the lead in position. Sensing thresholds were evaluated in bipolar configuration and are recorded on the implant data sheet. Diaphragmatic pacing was evaluated at full bipolar output as indicated on the data sheet. A Yary coronary sinus sheath was advanced to position in the right atrium. The curved obturator was placed through the sheath and using x-ray dye the os of the coronary sinus was identified. An attain select guide was used to obtain access to the coronary sinus using a guidewire placed through the introducer system into the coronary sinus and the Yary sheath was advanced into the coronary sinus. A balloon occlusion catheter was advanced through this sheath into the coronary sinus, the balloon was inflated and dye was injected in various projections to obtain a coronary sinus angiogram. A good vessel was identified and a low-lying position and a quadripolar coronary sinus catheter was advanced using a stylette to into good distal position. The left ventricular pacing threshold was evaluated in various configurations, as recorded on the implant data sheet. Diaphragmatic pacing was evaluated at full output, as indicated on the data sheet. Once this lead was in position the introducer system was removed from the lead and the leads were all attached to the anterior pectoral fascia using 2 sutures of 2-0 silk around the lead collars. The vancomycin-soaked sponge was removed from the pocket, hemostasis was obtained, since the patient is on platelet therapy and had been on anticoagulation there was a fair amount of oozing from the surgical site and Hilario was used to control it. The ICD was attached to the leads and placed in the pocket with the leads coiled beneath it. The incision was closed with a running double subcutaneous closure of 3-0 Vicryl absorbable suture, followed by running subcuticular skin closure of 4-0 Vicryl absorbable suture. Bacitracin ointment was placed on the incision and a pressure dressing applied. [facility] Electrophysiology codes Indication for Procedure (1) Tachy-karey syndrome: (2) Ischemic cardiomyopathy: (3) Heart failure with mid-range ejection fraction (HFmEF): Pacing Procedure 1: Pacin BiV electrode w/Pacer / ICD implant, add on code ICD Procedure 1: ICD: 46993 Insert single or dual ICD system Miscellaneous Procedures Procedure 1: EP Miscellaneous: 73662 Contrast injection for venography Procedure 2: EP Miscellaneous: 97247-82 Venography, CS supevsion/interp PG Moderate Sedation Codes Moderate Sedation Codes Procedure 1: Sedation/Anesthesia: 60115 Mod Sedation by the same physician;Init15 Min Child Age 5 & Up Procedure 2: Sedation/Anesthesia: 23082 Mod Sedation by the same physician; Ea [id number] Minutes
[2023-06-15] MEDS ORDERED: ACETAMINOPHEN 325 MG TAB PO PRN (10:44)
--- NOTE | 2023-06-15 13:59 | Post Anesthesia Assessment ---
Date of Service June 15, 2023 Post Sedation Assessment Vital Signs Temp Pulse Pulse Pulse Resp BP BP 06/15/23 13:20 88 20 105/72 06/15/23 12:50 93 H 20 124/91 06/15/23 12:20 82 20 119/82 06/15/23 11:50 90 20 123/106 H 06/15/23 11:35 81 20 131/98 06/15/23 11:20 80 20 135/95 06/15/23 11:05 80 20 133/101 H 06/15/23 10:50 83 20 132/95 06/15/23 10:35 83 20 122/91 06/15/23 07:51 36.8 C 77 18 132/99 06/15/23 07:40 83 20 139/80 06/15/23 07:27 61 06/15/23 04:14 36.3 C L 61 18 114/75 06/14/23 23:12 36.3 C L 61 18 121/75 06/14/23 20:10 106 H 06/14/23 19:58 36.5 C 96 H 18 142/84 H 06/14/23 15:46 36.4 C L 83 16 111/73 Pulse Ox O2 Del Method 06/15/23 13:20 97 Room Air 06/15/23 12:50 96 Room Air 06/15/23 12:20 99 Room Air 06/15/23 11:50 95 Room Air 06/15/23 11:35 95 Room Air 06/15/23 11:20 94 Room Air 06/15/23 11:05 95 Room Air 06/15/23 10:50 95 Room Air 06/15/23 10:35 94 Room Air 06/15/23 07:51 97 Room Air 06/15/23 07:40 97 Room Air 06/15/23 07:27 06/15/23 04:14 94 Room Air 06/14/23 23:12 94 Room Air 06/14/23 20:10 06/14/23 19:58 97 Room Air 06/14/23 15:46 98 Room Air Recovery Score Activity: Moves 4 extremities Respiration: Deep Breath/Cough Circulation: +/-20% PreAnes Value Consciousness: Fully Awake Oxygen Saturation: > 92% On Room Air Post Anesthesia Score: 10 Discharge Sedation Level of Care: Fast Track Phase II Post Sedation Plan On clinical assessment, the patient appears to have tolerated the sedation without complications. Patient is recovering as anticipated. Patient will continue to be monitored by nursing and may be discharged when sedation discharge criteria are met per below protocol. Upon Completions of procedure up to 15 minutes continue every 5 minute vital signs and the P.A.R. score; then discharge to a Phase I or Fast Track to Phase II per the following guidelines: * Discharge Patient to appropriate Phase II area if PAR is 8 or greater or return to pre- procedure baseline. The post - procedure orders will be as directed. * If PAR score is less than 8 or not return to pre-procedure baseline then patient will follow Phase I monitoring till PAR is reached for Phase II. The Phase I may be done in procedure room or may call to secure a Phase I area. * If naloxone or flumazenil are used for reversal, hold in Phase I for continued monitoring from when last reversal dose was given for a minimum of 60 minutes or longer pending the nurse and/or physician discretion of patient condition before discharge to Phase II. Please call the Sedation Physician to re-evaluate and complete post-note for discharge to Phase II area. Do NOT discharge from procedure sedation or Phase 1 until post- sedation evaluation note is complete by procedure /sedation MD Sedation Discharge Instructions to be given to the patient at discharge to home.
[2023-06-15] MEDS: LACTATED RINGER'S 1,000 ML IV SCH (14:23)
[2023-06-15] MEDS: METOPROLOL TARTRATE 1 MG/ML VIAL IV ONE ×2 (14:23→14:24)
[2023-06-15] MEDS: ACETAMINOPHEN 325 MG TAB PO PRN (14:29)
[2023-06-15] MEDS: METOPROLOL TARTRATE 100 MG TAB PO SCH (14:29)
[2023-06-15] MEDS: ACETAMINOPHEN W/CODEINE #3 1 TAB PO PRN (16:06)
--- NOTE | 2023-06-15 17:51 | Electrocardiogram Report ---
Test Reason : Blood Pressure : / mmHG Vent. Rate : 080 BPM Atrial Rate : 098 BPM P-R Int : 000 ms QRS Dur : 132 ms QT Int : 416 ms P-R-T Axes : 000 213 001 degrees QTc Int : 479 ms Ventricular-paced rhythm with intrinsic complexes Abnormal ECG When compared with ECG of 13-JUN-2023 03:57, Electronic ventricular pacemaker has replaced Atrial fibrillation Confirmed by Pineda Morejon ([id number]) on 06/15/2023 5:51:13 PM Referred By: REFERRED SELF Confirmed By:William Morejon
--- NOTE | 2023-06-15 18:16 | Hospitalist Progress Note ---
Date of Service June 15, 2023 Assessment & Plan (1) Tachy-karey syndrome: Plan: patient with poorly controlled a.fib during this stay, as well as his stay in 04/17-05/19, he has had rapid a.fib necessitating multiple dose adjustments of beta leisa over the last few days he has had significantly elevated HRs with minimal activity, and has hit 160-170 periodically with just moving around in his room attempts to increase his metoprolol succ to 75mg led to severe bradycardia with HRs in the 30s in light of the above he would benefit from pacemaker placement to that end Dr Alan Rowan from [facility] Cardiology was consulted Dr Rowan placed BiV pacemaker with ICD insertion 06/15 Metoprolol 100 mg bid -monitor rate -resume apixaban when ok with cardiology (2) Confusion: Plan: present upon admission seems to have resolved exact etiology uncertain but suspect acute metabolic encephalopathy in the setting of a URI (MRI brain with sinusitis, URI symptoms, etc) of note - the fall/?syncopal episode in his shower at home may have been due to rapid a.fib with hypotension leading to the event he may have also been mildly volume contracted given his DREW extensive w/u including cxr, u/a, dig level, ammonia, etc without source of infection or metabolic abnormality MRI brain without acute CVA - old CVAs seen only EEG w/o seizure focus checked VBG - no hypercarbia checked blood cx's - negative checked COVID/flu/RSV - returned negative; however, I do believe he had a URI given his nasal congestion/cough/sneezing/etc and MRI brain findings of his sinuses his confusion/encephalopathy was in the setting of a baseline cognitive impairment state/early dementia (3) Atrial fibrillation, permanent: Plan: see above (4) CKD (chronic kidney disease) stage 3, GFR 30-59 ml/min: Plan: with mild superimposed DREW Peak Cr 2.1 baseline 1.6 to 1.9 Cr today 1.9 -AM BMP (5) Chronic systolic CHF (congestive heart failure): Plan: remains compensated echo this admission with EF 30-35% see above re: discussion about metoprolol Entresto, bumex, and Spironolactone initially held, bumex resumed continue Jardiance BMP am - consider resuming Entresto later in the stay or as outpatient (6) Hypothyroidism: Plan: Stable. TSH=1.851 Continue Synthroid 75 mcg po daily (7) CAD (coronary artery disease): Plan: No evidence of ACS despite his event in the shower at home (see above) Troponin within normal limits Continue Ticagrelor 90mg po BID Lipitor on hold due to rhabdomyolysis he had had in April and concern it was statin related HOWEVER, his HMG-coA reductase inhibitor ab returned negative which makes statin-induced rhabdo very unlikely Metoprolol resumed Resumed statin (8) Pain of left great toe: Plan: during prior hospitalization he had podagra from gout due to falling in shower at his son's home checked x-rays --> no fracture 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 -- s/p prednisone 10mg daily x 2 days now cut to 5mg/day pain MUCH improved uric acid level improved from prior level (10+) but still high and not at goal of <6 increased allopurinol to 200mg daily for prophylaxis during this stay he was supposed to f/u with rheumatology this week but will need visit rescheduled (was to see Dr Dallas Llanes [facility] Rheum) (9) URI (upper respiratory infection): Plan: developed such 1-2 days prior to admission COVID/flu/RSV negative MRI brain with sinus disease and an acute air-fluid level in the maxillary sinus consider short course of PO abx although still likely to be viral and abx would not be helpful plus, he is already improving / resolving the illness (10) Cognitive impairment: Plan: baseline memory impairment - likely on basis of vascular disease (prior strokes, etc) had superimposed encephalopathy at admission (11) NSVT (nonsustained ventricular tachycardia): Plan: 03/2023 echo with EF 30-35% during prior hospital stay in April he did have runs of NSVT asymptomatic then, and asymptomatic again this admission ICD/pacer placed and back on metoprolol (12) Encounter for assessment of decision-making capacity: Plan: The patient has developed a cognitive impairment state/early dementia over the last few years, likely on the basis of vascular disease (multiple old strokes). Wednesday am, 06/13, he was quite agitated, and it took significant discussion with him along with low-dose zyprexa to help him be calm. I am concerned that he lacks consistent medical decision making capacity. His insight into his medical problems is often very poor. Of note - post-discharge he will cont to live with his son who will provide 16/11 supervision. Plan PT, ANTONINA adair completed cleared to return home with his son with whom he lives zyprexa 2.5mg HS to use on PRN basis for agitation (did not need overnight) updated pt's daughter, Yina, by phone 06/14 Admission and Anticipated Discharge Date Admission Date: June 11, 2023 Subjective seen after pacer/ICD, feeling well except L chest sore. No shortness of breath, no increase in leg swelling. L great toe MTP pain improved Physical Exam 2 Physical Exam: PHYSICAL EXAMINATION Last 24h vital signs reviewed, see documentation in flowsheet General: comfortable appearing, no distress, sitting on EOB HEENT: Normocephalic, atraumatic, pupils round and equal, sclerae anicteric, no conjunctival injection, moist mucus membranes Lungs: Normal respiratory effort. Clear to auscultation bilaterally. No RRW Heart: Regular rate and rhythm, no murmurs. No JVD. L chest dressed cdi Abdomen: Soft, nontender, nondistended. Bowel sounds present. Extremities: Warm, dry, well-perfused. mild LLE>RLE extremity edema - trace. L 1st MTP without erythema tenderness or warmth, tolerated ROM Neuro: Alert and oriented x 4, face symmetric, moves 4 extremities well Psych: Normal affect and behavior Results & Data Results & Data Vital Signs (Past 12 Hours) Vital Signs Temp Pulse Pulse Pulse Resp BP BP 06/15/23 15:28 36.4 C L 97 H 18 125/79 06/15/23 14:09 36.3 C L 80 18 121/75 06/15/23 13:20 88 20 105/72 06/15/23 12:50 93 H 20 124/91 06/15/23 12:20 82 20 119/82 06/15/23 11:50 90 20 123/106 H 06/15/23 11:35 81 20 131/98 06/15/23 11:20 80 20 135/95 06/15/23 11:05 80 20 133/101 H 06/15/23 10:50 83 20 132/95 06/15/23 10:35 83 20 122/91 06/15/23 07:51 36.8 C 77 18 132/99 06/15/23 07:40 83 20 139/80 06/15/23 07:27 61 Pulse Ox O2 Del Method 06/15/23 15:28 96 Room Air 06/15/23 14:09 96 Room Air 06/15/23 13:20 97 Room Air 06/15/23 12:50 96 Room Air 06/15/23 12:20 99 Room Air 06/15/23 11:50 95 Room Air 06/15/23 11:35 95 Room Air 06/15/23 11:20 94 Room Air 06/15/23 11:05 95 Room Air 06/15/23 10:50 95 Room Air 06/15/23 10:35 94 Room Air 06/15/23 07:51 97 Room Air 06/15/23 07:40 97 Room Air 06/15/23 07:27 Laboratory Results 06/12/23 05:51 06/15/23 06:55 PG Care Time/CCT Total # of Minutes Spent Total Time Spent with Patient: Total time spent is greater than 50% in coordination of care (as documented) at patient's floor/unit and/or counseling patient: Coding Level of Care Code 17425 SUB INP/OBS CARE 235MIN Diagnoses Tachy-karey syndrome I49.5 Confusion R41.0 Atrial fibrillation, permanent I48.21 CKD (chronic kidney disease) stage 3, GFR 30-59 ml/min N18.30 Chronic kidney disease stage 3 subtype: unspecified whether 3a or 3b Chronic systolic CHF (congestive heart failure) I50.22 Hypothyroidism E03.9 Coronary artery disease of tel[place] artery of tel[place] heart with stable angina pectoris I25.118 Coronary Disease-Associated Artery/Lesion type: [place] artery [place] vs. transplanted heart: tel[place] heart Associated angina: with stable angina Pain of left great toe M79.675 URI (upper respiratory infection) J06.9 Cognitive impairment R41.89 NSVT (nonsustained ventricular tachycardia) I47.29 Encounter for assessment of decision-making capacity Z00.8 (4) CKD (chronic kidney disease) stage 3, GFR 30-59 ml/min Chronic kidney disease stage 3 subtype: unspecified whether 3a or 3b Qualified Code(s): N18.30 - Chronic kidney disease, stage 3 unspecified (7) CAD (coronary artery disease) Coronary Disease-Associated Artery/Lesion type: [place] artery [place] vs. transplanted heart: tel[place] heart Associated angina: with stable angina Qualified Code(s): I25.118 - Atherosclerotic heart disease of tel[place] coronary artery with other forms of angina pectoris
--- NOTE | 2023-06-16 07:16 | XRay Report ---
XR chest 2V PA/lateral HISTORY: Interval pacemaker placement. EXACT TIME ORDERED Evaluate for pneumothorax and l COMPARISON: Chest 06/11/2023. FINDINGS: Interval placement of a left-sided pacemaker/defibrillator. Appear intact. No pneumothorax. No pleural effusions. The heart remains mildly enlarged. No evidence for pulmonary edema. No focal l mihir consolidations. Partially visualized cervical spinal fusion hardware. Mildly tortuous thoracic ao rta again noted. Chronic compression deformity within the lumbar spine. IMPRESSION: Left-sided pacemaker. No pneumothorax. ACT 112: Negative or not required by law. Electronically signed by: Obi Parkinson M.D. 06/16/2023 7:14 AM
[2023-06-16 07:17] LABS: BUN Creatinine Ratio 20.2 (10-20); Creatinine Clr Calc Pharmacy 39.8 ml/min; Est GFR (African American) 42.9 ml/min; Potassium 3.6 mmol/L (3.5-5.1)
--- NOTE | 2023-06-16 09:12 | Cardiology Progress Note ---
Date of Service June 16, 2023 Assessment & Plan (1) Tachy-karey syndrome: (2) Ischemic cardiomyopathy: (3) Heart failure with mid-range ejection fraction (HFmEF): (4) Status post implantation of automatic cardioverter/defibrillator (AICD): Plan 1. Atrial fibrillation: Historically this has been paroxysmal but he may be in permanent atrial fibrillation now. Rate control has become an issue, on beta- blockade he has heart rates in the 30s at night therefore not allowing us to increase his beta-blockade, additionally he has heart rates of up to 200 bpm with minimal activity. We could not achieve better heart rate control without implanting a pacemaker to support his lower heart rate and increase his medications to achieve better heart rate with activity, now with a pacer his HR seems well controlled so far on Metoprolol tartrate 100 BID, this could be switched to metoprolol succinate 200 mg daily if desired. This would be preferable for his cardiomyopathy. 2. Congestive heart failure: He has had a lot of difficulty with congestive heart failure but it the current time appears to be relatively euhydrated. 3. Ischemic cardiomyopathy: He has significant coronary disease and has had intervention in the past but recently his left ventricular function has fallen without a known change in cardiac anatomy or recurrent myocardial infarction. He may have a superimposed nonischemic cardiomyopathy, possibly related to atrial fibrillation with an uncontrolled heart rate. The irregularity itself can contribute to a cardiomyopathy. His intrinsic QRS duration is normal but he is now paced with a good electrical complex. He is on near guideline directed medical therapy (he is on a slightly reduced Entresto dose and he has been on a reduced beta-leisa dose due to bradycardia), I have increased his metoprolol to 200 mg daily. 4. Coronary disease: He has known coronary artery disease but no evidence of recent myocardial infarction and he does not have symptoms to suggest angina. 5. Anticoagulation: He is taking Eliquis which was held for the pacer, I am restarting that this AM. 6. Fall: He presented this time with a fall and cause for it is not clear. He is possibly related to these variations in heart rate. Hopefully that will not r ecur. 7. Post-OP day #1: He is doing well post-op, from my standpoint he can go home. He has instructions in his DC paperwork and followup appointments scheduled. Thank you. Admission and Anticipated Discharge Date Admission Date: June 11, 2023 Subjective Feels well today, minimal incisional discomfort Physical Exam Physical Exam: Site is clean and dry, no significant bleeding or echymosis Cardiac rhythm regular with no rub Lungs clear Results & Data Vital Signs (Past 12 Hours) Vital Signs Temp Pulse Resp BP Pulse Ox O2 Del Method 06/16/23 07:09 36.6 C 79 20 125/86 97 Room Air 06/16/23 02:42 36.4 C L 79 20 129/87 97 Room Air 06/15/23 22:54 36.4 C L 76 18 114/75 93 Room Air Laboratory Results Comprehensive Metabolic Panel 06/16/23 Range/Units 06:16 Sodium 139 (136-145) mmol/L Potassium 3.6 (3.5-5.1) mmol/L Chloride 102 (98-107) mmol/L Carbon Dioxide 27 (21-32) mmol/L BUN 36 H (6-23) mg/dl Creatinine 1.78 H (0.6-1.4) mg/dl Glucose 86 (70-99(Fasting)) mg/dl Calcium 9.0 (8.6-10.3) mg/dl Intake and Output 06/15/23 06/16/23 06/16/23 22:59 06:59 14:59 Intake Total 300 / 400 100 / 400 Balance 300 / 400 100 / 400 Intake: Oral 300 / 400 100 / 400 Other: # Unmeasured Voids 2 1 Diagnostic Findings Post OP ECG: V pacing appropriately with good Bi-V complex Telemetry: Normal pacing function CXR: Good lead positition with no pneumo ICD check: Excellent measurements PG Care Time/CCT Total # of Minutes Spent Total Time Spent with Patient: Total time spent is greater than 50% in coordination of care (as documented) at patient's floor/unit and/or counseling patient: Coding Level of Care Code 63577 Post Operative Follow-Up Diagnoses Tachy-karey syndrome I49.5 Ischemic cardiomyopathy I25.5 Heart failure with mid-range ejection fraction (HFmEF) I50.22 Status post implantation of automatic cardioverter/defibrillator (AICD) Z95.810 CPT Codes Implantable Defib Multi lead programming - [id number] ([id number])
[2023-06-16] MEDS ORDERED: OLANZapine ZYDIS 5 MG ORALLY DIS. TAB PO PRN (12:27)
--- NOTE | 2023-06-16 19:49 | Discharge Summary ---
Date of Service June 16, 2023 Admission HPI Per Admitting Provider Sharath Delgado is a 72yo male with history of prior CVA, mild cognitive impairment, CAD, atrial fibrillation on anticoagulation with Eliquis presenting from home with some confusion. History obtained from son, Gasper and chart review. Son reports that he returned home from work around 18:00 and the patient was found sitting in a chair in the living room covered in Goldfish crackers and incontinent of urine. He was also more confused and speaking slowly. His son helped him to the shower to get cleaned up. 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 His son kept checking on him and patient kept saying "i'm getting out soon". His son then heard a "bump" sound and patient was found sitting on the floor of the shower. He then developed nausea and had one episode of vomiting. Son reports no obvious signs of stroke such as facial droop or unilateral weakness. Patient with no recollection of events prior to arrival. He went to a speech therapy appointment and does not recall being there. He also was unable to state his name and birthdate in the ER which is abnormal for him. Patient offers no additional history. When asked about events that brought him to the ER he blows a raspberry and says "everything is perfectly clear". He denies fever, chills, chest pain, cough, SOB, abdominal pain, nausea, vomiting, diarrhea or constipation. No additional complaints. In the ER he is afebrile, mildly tachycardic with HR of 102, blood pressure 96/61 ER Course: Keppra 1500mg IV Zofran 4mg IV NSS x 500mL Principal Diagnosis Tachybrady syndrome, acute metabolic encephalopathy Discharge Exam PHYSICAL EXAMINATION Last 24h vital signs reviewed, see documentation in flowsheet General: comfortable appearing, no distress, walking around room HEENT: Normocephalic, atraumatic, pupils round and equal, sclerae anicteric, no conjunctival injection, moist mucus membranes Lungs: Normal respiratory effort. Heart: L upper chest pacemaker incision cdi no swelling or redness Extremities: Warm, dry, well-perfused. Walks well in room Neuro: Alert and oriented x hospital basic situation but impulsive and mildly agitated wanting to go home, face symmetric, moves 4 extremities well Discharge Data Allergies Allergy/AdvReac Type Severity Reaction Status Date / Time donepezil Allergy Unknown SEE COMMENT Verified 06/04/23 11:32 duloxetine [From Cymbalta] Allergy Unknown SEE COMMENT Verified 06/04/23 11:32 Consultations 06/10/23 00:00 ED Decision to Admit Stat 06/13/23 09:57 Consult Cardiology Routine Procedures Performed Operation Date: 06/15/23 08:00 Actual Procedures p ICD Biventricular Implant - Alan Rowan MD Ordered Studies 06/09/23 22:10 CT cervical spine wo con Stat CT head/brain wo con Stat 06/11/23 07:00 MR brain wo con Routine 06/15/23 07:00 EP Lab Images for PACS ONCE Cervical Spine CT 06/09/23 22:10 Exam(s): CT C SPINE EXAM: CT Cervical Spine Without Intravenous Contrast CLINICAL HISTORY: Reason for exam: fall. TECHNIQUE: Axial computed tomography images of the cervical spine without intravenous contrast. CTDI is 26.42 mGy and DLP is 584.74 mGy-cm. Automated exposure control was utilized for the study. A dose lowering technique was utilized adhering to the principles of ALARA. COMPARISON: No relevant prior studies available. FINDINGS: The vertebral body heights are maintained. The craniocervical junction is intact. The atlanto-dens interval is maintained. The dens is intact. ACDF at C4-C6. No CT evidence of hardware competition. There is no spondylolisthesis. Multilevel cervical spondylosis and degenerative disc disease. Straightening of the cervical lordosis. The unenhanced neck soft tissues are grossly unremarkable. The visualized lung apices are grossly clear. IMPRESSION: No acute fracture or subluxation of the cervical spine. ACDF at C4-C6. No CT evidence of hardware competition. Electronically signed by: Florian Woods MD 06/09/23 23:20 PM Chest X-Ray 06/09/23 22:10 XR chest 1V portable HISTORY: weakness COMPARISON: Chest 04/21/2023. FINDINGS: No pneumothorax. No pleural effusions. The heart remains enlarged. No new focal lung consolidations to suggest a pneumonia. No evidence for pulmonary edema. Cervical spinal fusion hardware is again noted. Degenerative changes within the shoulders. IMPRESSION: Stable cardiomegaly. Otherwise, no acute process within the chest. ACT 112: Negative or not required by law. Electronically signed by: Obi Parkinson M.D. 06/10/2023 7:[address] 06/09/23 22:10 Exam(s): CT HEAD Without Contrast EXAM: CT Head Without Intravenous Contrast CLINICAL HISTORY: Reason for exam: h/o CVA on thinners, fall. TECHNIQUE: Axial computed tomography images of the head/brain without intravenous contrast. CTDI is 61.67 mGy and DLP is 374.65 mGy-cm. Automated exposure control was utilized for the study. A dose lowering technique was utilized adhering to the principles of ALARA. COMPARISON: Brain MRI April 25, 2021. FINDINGS: No acute intracranial hemorrhage. No midline shift or mass effect. Encephalomalacia in the RIGHT parietal lobe, consistent with old infarct. Age-related cerebral volume loss. Periventricular and subcortical white matter hypoattenuation, consistent with chronic microangiopathy. The visualized orbits appear grossly unremarkable. The calvarium is intact. The visualized paranasal sinuses and mastoid air cells are grossly clear. IMPRESSION: No acute intracranial hemorrhage, midline shift, or mass effect. Encephalomalacia in the RIGHT parietal lobe, consistent with old infarct. Electronically signed by: Florian Woods MD 06/09/23 23:12 PM Foot X-Ray 06/10/23 15:15 LEFT FOOT 3 VIEWS CLINICAL HISTORY: Fall with left foot injury. FINDINGS: 3 views of the left foot are obtained. No prior studies are available for comparison at the time of dictation. The skeletal structures are osteopenic. No fracture is seen. Mild degenerative change is noted throughout the foot. There are tiny dorsal and plantar heel spurs. The overlying soft tissues are within normal limits. IMPRESSION: No acute bony abnormality is identified. Electronically signed by: Daniel Hernandez M.D. 06/10/2023 4:46 PM Brain MRI 06/11/23 07:00 MRI OF THE BRAIN WITHOUT IV CONTRAST CLINICAL HISTORY: Change in mental status. COMPARISON STUDY: CT of the brain dated 06/09/2023. MRI of the brain dated 04/25/2021. TECHNIQUE: MRI of the brain was performed utilizing various T1 and T2-weighted sequences in the axial, sagittal, and coronal planes. IV contrast was not administered for this examination. FINDINGS: Brain parenchyma: There is age-related involutional change noting moderate to advanced confluent subcortical and periventricular microangiopathic disease. A focus of high right parietal encephalomalacia is consistent with a remote insult. There is also a small chronic left frontal lobe infarct. A chronic lacunar infarct is noted in the ginger. There is no hemorrhage or mass effect. There are scattered foci of nonspecific susceptibility abnormality. There is no restricted diffusion to suggest acute ischemia. [place]aza-white matter differentiation is preserved. No extra-axial fluid collection is seen. The cerebellar tonsils are normal in configuration. Ventricles, sulci, and cisterns: Prominent secondary to involutional change. Pituitary and sella: Unremarkable. Intracranial vasculature: Normal flow voids are maintained at the skull base. Orbits: The bony orbits are grossly intact. Orbital contents are normal in appearance noting bilateral ocular lens implant. Sinuses and mastoids: There is moderate mucosal thickening in the maxillary sinuses noting an air-fluid level on the left. There is moderate mucosal thickening within the ethmoid sinuses. Mild mucosal thickening is seen in the frontal and sphenoid sinuses. The metatarsals are clear. Calvarium: Unremarkable. Cervical cord: Partially visualized cervical spinal cord is normal in morphology and signal intensity. IMPRESSION: Chronic infarcts as above with no acute intracranial abnormality. ACT 112: Negative or not required by law. Electronically signed by: Daniel Hernandez M.D. 06/11/2023 1:54 PM Chest X-Ray 06/11/23 17:11 XR chest 2V PA/lateral HISTORY: URI, cough, RLL rales COMPARISON: Chest 06/09/2023. FINDINGS: No pneumothorax. No pleural effusions. No focal lung consolidations to suggest a pneumonia. No evidence for pulmonary edema. The heart remains mildly enlarged. Cervical spinal fusion hardware again noted. No acute fractures. IMPRESSION: No significant change compared to the prior study. No acute process. ACT 112: Negative or not required by law. Electronically signed by: Obi Parkinson M.D. 06/11/2023 6:23 PM Chest X-Ray 06/16/23 07:00 XR chest 2V PA/lateral HISTORY: Interval pacemaker placement. EXACT TIME ORDERED Evaluate for pneumothorax and l COMPARISON: Chest 06/11/2023. FINDINGS: Interval placement of a left-sided pacemaker/defibrillator. Appear intact. No pneumothorax. No pleural effusions. The heart remains mildly enlarged. No evidence for pulmonary edema. No focal lung consolidations. Partially visualized cervical spinal fusion hardware. Mildly tortuous thoracic aorta again noted. Chronic compression deformity within the lumbar spine. IMPRESSION: Left-sided pacemaker. No pneumothorax. ACT 112: Negative or not required by law. Electronically signed by: Obi Parkinson M.D. 06/16/2023 7:14 AM 06/12/23 05:51 06/16/23 06:16 Hospital Course (1) Tachy-karey syndrome: patient with poorly controlled a.fib during this stay, as well as his stay in 04/17-05/19, he has had rapid a.fib necessitating multiple dose adjustments of beta leisa He had significantly elevated HRs with minimal activity this admission, and has hit 160-170 periodically with just moving around in his room attempts to increase his metoprolol succ to 75mg led to severe bradycardia with HRs in the 30s in light of the above he would benefit from pacemaker placement to that end [place] [facility] [place] Dr Rowan placed BiV pacemaker with ICD insertion 06/15 Tolerated metoprolol 100 mg bid For discharge metoprolol succinate 200 mg daily, resumed apixaban, follow up with Dr. Rowan (2) Confusion: present upon admission seems to have resolved exact etiology uncertain but suspect acute metabolic encephalopathy in the setting of a URI (MRI brain with sinusitis, URI symptoms, etc) of note - the fall/?syncopal episode in his shower at home may have been due to rapid a.fib with hypotension leading to the event he may have also been mildly volume contracted given his DREW extensive w/u including cxr, u/a, dig level, ammonia, etc without source of infection or metabolic abnormality MRI brain without acute CVA - old CVAs seen only EEG w/o seizure focus checked VBG - no hypercarbia checked blood cx's - negative checked COVID/flu/RSV - returned negative; however, I do believe he had a URI given his nasal congestion/cough/sneezing/etc and MRI brain findings of his sinuses his confusion/encephalopathy was in the setting of a baseline cognitive impairment state/early dementia (3) Atrial fibrillation, permanent: see above (4) CKD (chronic kidney disease) stage 3, GFR 30-59 ml/min: with mild superimposed DREW - resolved Peak Cr 2.1 baseline 1.6 to 1.9 Cr today 1.7 (5) Chronic systolic CHF (congestive heart failure): remains compensated echo this admission with EF 30-35% see above re: discussion about metoprolol Entresto, bumex, Spironolactone, jardiance resumed (6) Hypothyroidism: Stable. TSH=1.851 Continue Synthroid 75 mcg po daily (7) CAD (coronary artery disease): No evidence of ACS despite his event in the shower at home (see above) Troponin within normal limits Continue Ticagrelor 90mg po BID Lipitor on hold due to rhabdomyolysis he had had in April and concern it was statin related HOWEVER, his HMG-coA reductase inhibitor ab returned negative which makes statin-induced rhabdo very unlikely Metoprolol resumed Resumed statin (8) Pain of left great toe: during prior hospitalization he had podagra from gout due to falling in shower at his son's home checked x-rays --> no fracture 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 -- s/p prednisone 10mg daily x 2 days then 5 mg daily and resolved uric acid level improved from prior level (10+) but still high and not at goal of <6 increased allopurinol to 200mg daily for prophylaxis during this stay he was supposed to f/u with rheumatology this week but will need visit rescheduled (was [place] [facility] [place] (9) URI (upper respiratory infection): developed such 1-2 days prior to admission COVID/flu/RSV negative MRI brain with sinus disease and an acute air-fluid level in the maxillary sinus consider short course of PO abx although still likely to be viral and abx would not be helpful plus, he is already improving / resolving the illness (10) Cognitive impairment: baseline memory impairment - likely on basis of vascular disease (prior strokes, etc) had superimposed encephalopathy at admission (11) NSVT (nonsustained ventricular tachycardia): 03/2023 echo with EF 30-35% during prior hospital stay in April he did have runs of NSVT asymptomatic then, and asymptomatic again this admission ICD/pacer placed and back on metoprolol (12) Encounter for assessment of decision-making capacity: The patient has developed a cognitive impairment state/early dementia over the last few years, likely on the basis of vascular disease (multiple old strokes). Wednesday am, 06/13, he was quite agitated, and it took significant discussion with him along with low-dose zyprexa to help him be calm. I am concerned that he lacks consistent medical decision making capacity. His insight into his medical problems is often very poor. Of note - post-discharge he will cont to live with his son who will provide 16/11 supervision. Plan PT, OT mana completed cleared to return home with his son with whom he lives updated pt's daughter, Yina, by phone 06/16 Total Time Total Time Spent Total Time Spent (In Minutes): I personally spent: 40 minutes today on clinical care activities including: reviewing chart notes and vital signs reviewing labs examining and counseling the patient counseling the patient's family writing orders documentation Discharge Plan Discharge Items Patient Disposition: Home - Self-Care Reason For Visit: DREW, ACUTE METABOLIC ENCEPHALOPATHY Discharge Diagnosis: atrial fibrillation with rapid rate, tachybrady syndrome, acute metabolic encephalopathy Activity: Per Instructions section Bathing: May shower/bathe in 3 days Non-emergency contact: Primary Care Provider and Mobile Home Laborer Call non-emergency contact if: you have any medication questions, your symptoms worsen, you have a fever, your wound has increased redness and your wound has increased drainage Follow-up/Referrals: Alan Rowan MD [Physician] - 07/14/23 3:00 pm Thi Montaño MD [Primary Care Provider] - 06/23/23 11:30 am Caridad Robles PA-C [Physician Installer Technician] - 06/18/23 9:30 am Diet: Heart Healthy Addtl Attending Provider Instructions: Medication changes: Metoprolol increased to 200 mg daily - will control heart rate and blood pressure. pacemaker will prevent heart rate from going too low. Allopurinol increased to 200 mg daily - lowers uric acid, prevent gout flares Recommend vitamin B12 supplement 1000 mcg daily - may buy over the counter -the B12 level in your blood was low normal / borderline. Low B12 can cause cognitive changes and other neurological symptoms so it is worth supplementing It was a pleasure seeing you in the hospital, Lorraine Melvin MD ACTIVITY RECOMMENDATIONS: * Do not raise affected arm over head for 2 weeks. SPECIAL CARE INSTRUCTIONS: * If bleeding occurs, apply direct pressure to area for 5 minutes. * Call your doctor if you have severe pain, fever, drainage or bleeding at site. * Keep dressing on and dry for 48 hours then remove. * Keep any scheduled doctor's appointment. * Implant Card - hand held device with website information given. SKIN IRRITATION: * You may experience some redness and/or swelling in the area where radiation was administered. If any skin irritation occurs, please contact your family physician. FOLLOW UP VISIT: Keep any scheduled doctor appointments. Pending Studies at Discharge: No Stand-Alone Forms: [facility] [employer], Smoking Cessation Medications and DC Order Prescriptions: New allopurinol 100 mg Tablet 200 mg PO QAM Qty: 60 0RF cyanocobalamin (vitamin B-12) 500 mcg Tablet 1,000 mcg PO QAM Qty: 0 0RF Rx Instructions: buy over the counter metoprolol succinate 200 mg tablet extended release 24 hr 200 mg PO DAILY Qty: 30 0RF Continued atorvastatin 80 mg tablet 80 mg PO HS Qty: 90 3RF Hold Instructions: Resume on 06/05/23. held for possible statin myopathy digoxin 125 mcg (0.125 mg) tablet 125 mcg PO HS Qty: 90 3RF sacubitril-valsartan 97-103 mg tablet 0.5 tab PO AMHS Patient Comments: CONFIRMED W/ PT'S SON AND ON JUNIPER DC SUMMARY 2/2 bumetanide 2 mg tablet 2 mg PO QAM Patient Comments: CONFIRMED W/ PT'S SON AND ON JUNIPER DC SUMMARY 2/2 nitroglycerin [Nitrostat] 0.4 mg Tablet, Sublingual 0.4 mg Sublingual UD PRN (Reason: Chest Pain) Brilinta 90 mg Tablet 90 mg PO BID Qty: 0 0RF Eliquis 5 mg Tablet 5 mg PO BID Qty: 0 0RF spironolactone 25 mg tablet 12.5 mg PO QAM levothyroxine [Synthroid] 75 mcg tablet 75 mcg PO .DAILY@0630 modafinil 100 mg tablet 100 mg PO QAM Jardiance 10 mg tablet 10 mg PO QAM Discontinued allopurinol 100 mg tablet 100 mg PO QAM metoprolol succinate 50 mg tablet extended release 24 hr 50 mg PO AMHS Discharge Orders: Discharge Order (Routine); Ordered 06/16/23 Ordered By: Lorraine Melvin Admission Data Admit Date/Time: 02/16/24 20:09 Attending Provider: Lorraine Melvin Admit Provider: Lan Barnes Primary Care Provider: Thi Montaño V. Other Providers: Loli Hamilton; Alan Rowan Other Interventions: Discharge Summary Assessment (RN) Last Done: 06/16/23 12:22 Coding Level of Care Code 66275 INP/OBS DISCH >30 MIN Diagnoses Tachy-karey syndrome I49.5 Confusion R41.0 Atrial fibrillation, permanent I48.21 CKD (chronic kidney disease) stage 3, GFR 30-59 ml/min N18.30 Chronic kidney disease stage 3 subtype: unspecified whether 3a or 3b Chronic systolic CHF (congestive heart failure) I50.22 Hypothyroidism E03.9 Coronary artery disease of [place] artery of [place] heart with stable angina pectoris I25.118 Coronary Disease-Associated Artery/Lesion type: [place] artery [place] vs. transplanted heart: [place] heart Associated angina: with stable angina Pain of left great toe M79.675 URI (upper respiratory infection) J06.9 Cognitive impairment R41.89 NSVT (nonsustained ventricular tachycardia) I47.29 Encounter for assessment of decision-making capacity Z00.8
== END 2023-06-16 17:28 | disposition home or self-care (01) | DRG 276 ==
LOC: ED 21:32 → EDINP 21:32 → SUATTDRO 06-10 00:42 → 2N 06-10 02:04 → SUATTDRO 06-11 20:09 → 2S 06-15 13:58
PROC: EPB.ICD (2023-06-15 08:00)
DX: N18.30 Chronic kidney disease, stage 3 unspecified; J32.9 Chronic sinusitis, unspecified; M10.9 Gout, unspecified; I25.10 Atherosclerotic heart disease of native coronary artery without angina pectoris; E03.9 Hypothyroidism, unspecified; Z79.899 Other long term (current) drug therapy; I49.5 Sick sinus syndrome; I50.22 Chronic systolic (congestive) heart failure; Z88.8 Allergy status to other drugs, medicaments and biological substances; J06.9 Acute upper respiratory infection, unspecified; G93.41 Metabolic encephalopathy; I47.29 Other ventricular tachycardia; Z79.890 Hormone replacement therapy; I13.0 Hypertensive heart and chronic kidney disease with heart failure and stage 1 through stage 4 chronic kidney disease, or unspecified chronic kidney disease; N17.9 Acute kidney failure, unspecified; Z86.73 Personal history of transient ischemic attack (TIA), and cerebral infarction without residual deficits; Z79.01 Long term (current) use of anticoagulants; I48.21 Permanent atrial fibrillation; Z87.891 Personal history of nicotine dependence